=== PATIENT | male | born 1955 | race Caucasian/White ===

== ENCOUNTER 2017-12-16 20:03 | Inpatient (IN) | payer BC, SELFPAY ==
[2017-12-16 20:03] VITALS: BP 125/68; PULSE 96; RESP 24; TEMP 37.3; O2SAT 94; BMI 35.6
--- NOTE | 2017-12-16 20:05 | EKG12_ITS ---
Test Reason : CP Blood Pressure : / mmHG Vent. Rate : 093 BPM Atrial Rate : 093 BPM P-R Int : 154 ms QRS Dur : 098 ms QT Int : 320 ms P-R-T Axes : 028 018 021 degrees QTc Int : 397 ms Normal sinus rhythm Nonspecific ST and T wave abnormality Abnormal ECG Confirmed by CESAR HOLLAND, WES ([id number]), website/blog editor RIAZ BROUSSARD ([id number]) on 12/20/2017 1:59:26 PM Referred By: CD Confirmed By:WES GUERRERO MD
[2017-12-16 21:03] VITALS: RESP 23; O2SAT 96
[2017-12-16 21:05] VITALS: BP 155/74; PULSE 96; RESP 24; O2SAT 97; O2SAT 98
--- NOTE | 2017-12-16 21:05 | RAD_ITS ---
STUDY: X-RAY CHEST REASON FOR EXAM: Male, 62 years old. Nausea and vomiting. Short of breath and chest pain. TECHNIQUE: Single AP portable view of the chest. COMPARISON: None. FINDINGS: The lungs are clear and expanded. There is no demonstrated pleural abnormality. Normal size heart. Normal mediastinum and trae. Normal visualized pulmonary arteries. Normal visualized aortic arch and descending thoracic aorta. Normal visualized thoracic spine. Normal visualized ribs, clavicles, and shoulders. There is no demonstrated abnormality of the visualized soft tissue structures of the upper abdomen. RAD/Chest 1 View (Portable) IMPRESSION: Normal x-ray examination of the chest. Electronically Signed: Luís Ferrari MD at 21:35 EDT , Service support ,
[2017-12-16 21:12] LABS: Anion Gap 5 (5-15); BUN 25 mg/dL (7-18); BUN/Creat Ratio 21.4 RATIO (10-20); Calcium,Total 8.3 mg/dL (8.5-10.1); Chloride 103 mmol/L (98-107); Creatinine, Serum 1.17 mg/dL (0.70-1.30); EST Glomerular Filtration Rate 67 mL/min (>60); Est Glom Filt Rate - Afr Amer 81 mL/min (>60); Estimated Creatinine Clearance 67.93 ml/min; Glucose 98 mg/dL (74-106); Potassium 3.9 mmol/L (3.5-5.1); Sodium Level 132 mmol/L (136-145)
[2017-12-16 21:23] LABS: Absolute Lymphocyte Count 1.74 X10^3/ul (0.83-4.51); Absolute Neutrophil Count 10.3 X10^3/uL (2.0-7.7); Basophil# 0.08 X10^3/uL; Basophil% 0.6 % (0-1); Eosinophil# 0.04 X10^3/uL; Eosinophils% 0.3 % (0-5); Hematocrit 40.3 % (40-54); Hemoglobin 13.9 g/dl (13.0-16.5); Lymphocyte # 1.74 X10^3/ul (4.0); Lymphocyte % 12.1 % (19-41); Mean Corp Hgb Conc 34.5 g/gl (32-36); Mean Corpuscular Hgb 31.3 pg (27.0-32.0); Mean Corpuscular Volume 90.8 fL (80-94); Mean Platelet Vol. 9.3 fl (6.2-12.0); Monocyte# 2.18 X10^3/uL; Monocyte% 15.1 % (0-10); Neutrophil # 10.29 X10^3/uL (2.7-7.7); Neutrophil % 71.4 % (47-70); Platelet Count 252 K/mm3 (150-450); RBC Distribution Width CV 13.1 % (11.6-14.6); Red Blood Count 4.44 M/mm3 (4.6-6.2); White Blood Count 14.4 K/mm3 (4.4-11.0)
[2017-12-16 21:28] LABS: Differential Indicated SCAN CRITERIA MET; POSITIVE COUNT NO; POSITIVE DIFFERENTIAL YES; POSITIVE MORPHOLOGY YES
[2017-12-16 21:47] LABS: Platelet Estimate ADEQUATE (ADEQ)
[2017-12-16 21:48] LABS: Differential Comment SCANNED
[2017-12-16] MEDS: Albuterol 2.5 MG/3 ML VIAL.NEB. INHALATION (22:14)
[2017-12-16 22:16] VITALS: PULSE 11; RESP 20
[2017-12-16] MEDS: Acetaminophen 500 MG Tablet 1000 MG PO (22:19)
[2017-12-17] VITALS (24 sets, daily range): BP systolic 110–159; BP diastolic 57–95; PULSE 76–126; RESP 18–30; TEMP 36.4–39.4; O2SAT 2–97; BMI 35.2
[2017-12-17 00:02] LABS: Bacteria 0 SEEN /hpf (None Seen); Squamous Epithelial Cells - UA 0 SEEN /hpf (0-5)
[2017-12-17 00:03] LABS: Color, Urine Yellow (Yellow); Glucose, Dipstick Normal (Normal); Ketone-Dipstick 15 mg/dl (Negative); Leukocyte Esterase-Dipstick 25 /ul (Negative); Nitrite-Dipstick Negative (Negative); Occult Blood-Urine 250 /ul (Negative); Protein-Dipstick 30 mg/dl (Negative); Urine Clarity Clear (Clear); Urine Urobilinogen Normal (Normal)
[2017-12-17 00:09] LABS: Urine Bilirubin Dipstick 1 mg/dL (Negative)
--- NOTE | 2017-12-17 00:10 | ED.DCSUM_ITS ---
- ER Visit Summary Date of Service: 12/17/17 Chief Complaint: Nausea History of Present Illness: The patient is a 62 M who presents with nausea that began yesterday. Patient states he has been nauseated since yesterday. Patient states this has been constant. Patient admits to some mild diffuse abdominal pain. Patient denies any diarrhea. Patient denies any melena or hematochezia. Patient denies any dysuria or hematuria. Patient does admit to some tightness in his chest and a cough. Patient also admits to a headache. Patient states his temperature at home was up to 102.2. Physical Examination: Vital signs are stable. Patient is afebrile. Patient is in no acute distress. Oral mucosa is pink and moist. Neck is supple. Trachea is midline. There is no JVD or lymphadenopathy. Heart was regular rate and rhythm. Lungs are diminished bilaterally. There is good respiratory effort noted. There is no accessory muscle use or retractions noted. Abdomen is soft. Bowel sounds are normal. There is no tenderness noted. Cranial nerves II through XII are intact. There are no focal motor or sensory deficits noted. The remaining physical exam is within normal limits. Test Results: Chest x-ray does not show any acute cardiopulmonary process. CBC shows a mild leukocytosis of 14.4. Basic metabolic profile is essentially within normal limits. Urinalysis is normal. Troponin is less than 0.02. EKG showed a normal sinus rhythm with a rate of 93. There are nonspecific ST T- wave changes in V1 and V2. There is a right bundle branch block noted. There are no acute changes. Emergency Department Course and Treatment: She was given an albuterol aerosol here. Patient was feeling better on reevaluation. Given the patient's leukocytosis, cough, and fever I feel this may be a bacterial bronchitis. Patient was given a prescription for Zithromax. Patient was also given a prescription for albuterol inhaler. Patient was instructed to follow-up with his primary care physician in 5-7 days. Patient understood and was agreeable with the plan. All questions were answered. Disposition: Discharge home Impression: Acute bronchitis This note was generated with [employer] dictation software. It may contain incorrect words, spelling, and punctuation that were not noted in review of the chart prior to signing ED Disposition - Plan for ED Patient: Disposition: Home or Assisted Living Chief Complaint: Nausea/Vomiting/Diarrhea Diagnosis: Acute bronchitis Instructions: Acute Bronchitis Prescriptions: Albuterol Inhaler [Ventolin Hfa] 1 - 2 puff INHALATION Q4H PRN PRN #1 inhaler PRN Reason: Wheezing Azithromycin [Zithromax] 250 mg PO DAILY #4 tab Referrals: Shante Castro MD [Primary Care Provider] -
[2017-12-17 00:12] LABS: Mucous, Urine 2+ /hpf (<or=2+); Red Blood Cells-Urine 5-10 SEEN /hpf (0-5); White Blood Cells 0-5 SEEN /hpf (0-5)
[2017-12-17] MEDS: Azithromycin 250 MG Tablet 500 MG PO (00:33)
--- NOTE | 2017-12-17 01:22 | ED.RN ---
AFTER AMBULATING PATIENT, PATIENT COMPLAINS OF INCREASED SHORTNESS OF BREATH AND FEELING LIGHT-HEADED.
--- NOTE | 2017-12-17 01:23 | HP.PCM_ITS ---
Problem List (1) Chronic pancreatitis Status: Chronic Qualifiers: Pancreatitis type: unspecified pancreatitis type Qualified Code(s): K86.1 - Other chronic pancreatitis (2) Acute bronchitis Status: Acute Qualifiers: Bronchitis organism: unspecified organism Qualified Code(s): J20.9 - Acute bronchitis, unspecified (3) Crohn's disease of small intestine Status: Chronic Qualifiers: Digestive disease complication type: unspecified complication Qualified Code(s): K50.019 - Crohn's disease of small intestine with unspecified complications (4) Dyslipidemia Status: Chronic History of Present Illness Date of Admission: 12/17/17 Chief Complaint: Dyspnea, cough, congestion, rhinorrhea, arthralgia, myalgia The patient is a 62 y/o M w/ PMHx: Crohn's Disease, Chronic Pancreatitis, GERD, Obesity who presents to the [facility] ED on 12/17/17 with history of onset fevers ( home T 102.2), harsh minimally productive cough, mild dyspnea worse with exertion, nausea without emesis, arthralgias and myalgias x 36-48 hours, not improving. In the ED work-up included T 99.2, HR 96, BP 125/68, RR 34, 94% on RA , CBC w/ WBC 14.4, Hgb 13.9, Plts 252 with L shift, BMP w/ Na 132, BUN/Cr 25/ 1.17, trop < 0.02, UA w/ evidence dehydration, microscopic hematuria, CXR without acute process. In the ED patient administered tylenol, azithromycin, albuterol. Initially patient was to be discharged to home; however, upon attempts to ambulate he became notably short of breath with increased RR 30s. Past Medical History Past Medical History (Chronic Problems): Chronic Problems Chronic pancreatitis (Chronic) Crohn's disease of small intestine (Chronic) Dyslipidemia (Chronic) Allergies No Known Allergies Allergy (Verified 01/10/14 03:29) Home Medications: Ambulatory Orders Medication Instructions Recorded Adalimumab [Humira] 20 mg SQ Q14D 01/10/14 Omeprazole [Prilosec] 40 mg PO DAILY 01/10/14 Cholestyramine (with Sugar) 1 dose PO DAILY 12/16/17 [Cholestyramine Powder] Lipase/Protease/Amylase [Creon Dr 1 capsule PO TID 12/16/17 36,000 Units Capsule] Albuterol Inhaler [Ventolin Hfa] 1 - 2 puff INHALATION Q4H PRN PRN 12/17/17 #1 inhaler Surgical History: - - Bowel resection, appendectomy, cholecystectomy, ventral hernia repair, right fifth toe resection. Psychiatric History: No pertinent psych hx Lives: Spouse/ Significant Other Smoking Status: Never smoker Tobacco Use: Non-smoker Alcohol: None Drugs: None - *Family History Maternal History Items: No pertinent history Paternal History Items: - - Father with a history of lung cancer and concurrent tobacco use. Review of Systems Constitutional: Reports: Anorexia, Chills, Fever, Malaise, Weakness, Fatigue. Denies: Weight Change HEENT: Reports: Head Aches, Post Nasal Drip, Sinus Congestion, Sinus Drainage, Sore Throat Cardiovascular: Denies: Chest Pain, Palpitations Respiratory: Reports: Cough, Shortness of Breath, Shortness of breath at rest, Shortness of breath upon exertion. Denies: Sputum production Gastrointestinal: Reports: Nausea. Denies: Abdominal Pain, Vomiting Genitourinary: Denies: Dysuria Musculoskeletal: Reports: Joint Pain, Muscle pain. Denies: Joint Tenderness Skin: Denies: Rash, Wounds Neurological: Denies: Numbness, Tingling, Focal weakness Psychiatric: Denies: Anxiety, Depression, Homicidal Ideations, Suicidal Ideations Hematologic/ Lymphatic: Denies: Easy Bruising, Easy Bleeding VTE Information - Inpt Only VTE Present on Admission: No VTE Mechan Device Prophylaxis: SCD's VTE Pharm Prophylaxis ordered?: Yes Patient Problems: Active and Suspected Problems Acute bronchitis (Acute) Subjective: Seated upright in the emergency room bed, fatigued, ill-appearing. Objective: Physical Examination: General: awake, alert, oriented x 3 and cooperative, seated upright in the ED bed, covered in blankets, fatigued and ill appearing. Skin: normal color, turgor, no icterus, cyanosis. HEENT: AT/NC, EOMI, PERRLA, dry MM, OP erythema without exudate, congested, no carotid bruits or JVD noted. Lungs: Diminished BS throughout, > bases, harsh coughing with any increased effort attempts, no rales, ronchi or wheezing. Heart: Mildly tachycardic with regular rhythm; no gallop, rub audible. Abdomen: soft, obese, NTTP, ND, normal BS, no HSM. Extremities: no cyanosis, clubbing, or edema. Neurological: patient awake, alert, oriented x 3; cognitive function intact; pupils equally reactive to light and accomodation; cranial nerves II-XII grossly normal, moving all 4 extremities, no focal deficits, strength severely globally decreased secondary to acute presentation. Psychiatric: affect appears fatigued, no acute evidence of depressive or anxiety feelings. - Physical Exam Vital Signs Temp Pulse Resp BP Pulse Ox 99.2 F H 116 H 23 H 138/95 H 95 12/16/17 20:03 12/17/17 00:06 12/17/17 00:06 12/17/17 00:06 12/17/17 00:06 Oxygen Flow Rate (L/min) 2 Oxygen Delivery Method Nasal Cannula Weight: 255 lb 11.779 oz Body Mass Index (BMI) 35.6 Laboratory Tests Past 24 Hrs 12/16/17 12/16/17 12/16/17 20:39 20:39 23:58 WBC 14.4 H RBC 4.44 L Hgb 13.9 Hct 40.3 MCV 90.8 MCH 31.3 MCHC 34.5 RDW 13.1 RDW Differential 43.0 Plt Count 252 MPV 9.3 Immature Gran % (Auto) 0.500 Neut % (Auto) 71.4 H Lymph % (Auto) 12.1 L [place] % (Auto) 15.1 H Eos % (Auto) 0.3 Baso % (Auto) 0.6 Absolute Neuts (auto) 10.3 H Absolute Lymphs (auto) 1.74 Total Counted Not Reportable Differential Comment SCANNED Diff Path Review May foll Platelet Estimate ADEQUATE Sodium 132 L Potassium 3.9 Chloride 103 Carbon Dioxide 24.0 Anion Gap 5 BUN 25 H Creatinine 1.17 Estim Creat Clear Calc 67.93 Est GFR (MDRD) Af Amer 81 Est GFR (MDRD) Non-Af 67 BUN/Creatinine Ratio 21.4 H Glucose 98 Calcium 8.3 L Troponin I < 0.02 Urine Color Yellow Urine Clarity Clear Urine pH 5.0 Ur Specific [place] 1.020 Urine Protein 30 H Urine Glucose (UA) Normal Urine Ketones 15 H Urine Occult Blood 250 H Urine Nitrite Negative Urine Bilirubin 1 H Urine Urobilinogen Normal Ur Leukocyte Esterase 25 H Urine RBC 5-10 SEEN Urine WBC 0-5 SEEN Ur Squamous Epith Cells 0 SEEN Urine Bacteria 0 SEEN Urine Mucus 2+ Assessment/Plan Active and Suspected Problems Acute bronchitis (Acute) The patient is a 62 y/o M w/ PMHx: Crohn's Disease, Chronic Pancreatitis, GERD, Obesity who presents to the [facility] ED on 12/17/17 with history of onset fevers, harsh minimally productive cough, mild dyspnea worse with exertion, nausea without emesis, arthralgias and myalgias x 36-48 hours, not improving. (1) Acute Bronchitis, Possible Influenza Viral Syndrome: CXR w/ chronic changes , CBC on admission w/ 14.4 with L shift. Will admit to MS, maintain on oxygen with wean as tolerated to room air, continue ATC duonebs, PRN albuterol, IV methylprednisolone given severity of presentation, HOB, IS parameters, IV Azithromcyin with pending sputum cultures. Respiratory viral panel and rapid influenza requested, pending. Tamiflu started pending these results given high suspicions. Bld Cx x 2 requested additionally given presentation. Allow clears, ADAT, PRN anti-emetics. Continue IVFs, plan repeat CXR PA and Lateral in AM in case of evolving PNA. (2) Hyponatremia, Hypovolemic: Na 132, BUN elevated also, secondary to #1, dehydration, continue IVFs, repeat level in AM. (3) Crohn's Disease: Patient notes diffuse disease, s/p prior bowel resection x 2, on Humira q 2 weeks. (4) Chronic Pancreatitis: Secondary to #2, maintain on creon, current clears only with ADAT. (5) Obesity: Weight loss and lifestyle changes encouraged. (6) DVT Prophylaxis: SCDs, lovenox. Code Visit OBSV E&M: 44245 Initial observation care L3
[2017-12-17 02:42] LABS: Magnesium 2.1 mg/dL (1.6-2.6)
[2017-12-17] MEDS: Ondansetron 4 MG/2 ML Vial IV ×2 (03:44→22:13)
[2017-12-17] MEDS: 0.9% Normal Saline 1,000 ML 125 ML IV ×3 (03:47→22:32)
[2017-12-17] MEDS: Ipratropium/Albuterol Sulfate 3 ML AMPUL.NEB INHALATION ×4 (03:59→19:52)
[2017-12-17] MEDS: Acetaminophen 325 MG Tablet 650 MG PO (05:01)
[2017-12-17] MEDS: 0.9% NaCl Peripheral Flush Adult/Peds IV ×3 (05:02→13:18)
[2017-12-17] MEDS: Oseltamivir Phosphate 75 MG Capsule PO (05:03)
[2017-12-17 05:22] LABS: Absolute Lymphocyte Count 1.72 X10^3/ul (0.83-4.51); Absolute Neutrophil Count 17.6 X10^3/uL (2.0-7.7); Basophil# 0.05 X10^3/uL; Basophil% 0.2 % (0-1); Hematocrit 37.8 % (40-54); Hemoglobin 12.9 g/dl (13.0-16.5); Lymphocyte # 1.72 X10^3/ul (4.0); Lymphocyte % 7.7 % (19-41); Mean Corp Hgb Conc 34.1 g/gl (32-36); Mean Corpuscular Hgb 31.2 pg (27.0-32.0); Mean Corpuscular Volume 91.5 fL (80-94); Mean Platelet Vol. 9.1 fl (6.2-12.0); Monocyte# 3.02 X10^3/uL; Monocyte% 13.4 % (0-10); Neutrophil # 17.59 X10^3/uL (2.7-7.7); Neutrophil % 78.3 % (47-70); Platelet Count 224 K/mm3 (150-450); RBC Distribution Width CV 13.5 % (11.6-14.6); RBC Distribution Width SD 44.2 fl (35.1-43.9); Red Blood Count 4.13 M/mm3 (4.6-6.2); White Blood Count 22.5 K/mm3 (4.4-11.0)
[2017-12-17 05:23] LABS: Differential Indicated SCAN CRITERIA MET; POSITIVE COUNT NO; POSITIVE DIFFERENTIAL YES; POSITIVE MORPHOLOGY YES
[2017-12-17 05:31] LABS: Anion Gap 9 (5-15); BUN 24 mg/dL (7-18); BUN/Creat Ratio 20.5 RATIO (10-20); Calcium,Total 7.8 mg/dL (8.5-10.1); Chloride 103 mmol/L (98-107); Creatinine, Serum 1.17 mg/dL (0.70-1.30); EST Glomerular Filtration Rate 67 mL/min (>60); Est Glom Filt Rate - Afr Amer 81 mL/min (>60); Estimated Creatinine Clearance 67.93 ml/min; Glucose 105 mg/dL (74-106); Potassium 3.8 mmol/L (3.5-5.1); Sodium Level 135 mmol/L (136-145)
[2017-12-17 05:34] LABS: Lactic Acid 1.3 mmol/L (0.4-2.0)
--- NOTE | 2017-12-17 09:11 | RAD_ITS ---
STUDY: X-RAY CHEST REASON FOR EXAM: Male, 62 years old. Acute bronchitis, shortness of breath. TECHNIQUE: PA and lateral views of the chest. COMPARISON: None. FINDINGS: Prominent interstitial lung markings are present symmetrically and predominantly within the lung bases. There is no demonstrated pleural abnormality. Normal size heart. Normal mediastinum and trae. Normal visualized pulmonary arteries. There is atherosclerotic calcification of the aortic arch with tortuosity. Normal visualized thoracic spine. Normal visualized ribs, clavicles, and shoulders. There is no demonstrated abnormality of the visualized soft tissue structures of the upper abdomen. RAD/Chest PA and Lateral IMPRESSION: Prominent interstitial markings with no distinct focal airspace disease concerning for diffuse peribronchial inflammation in the appropriate clinical setting. Electronically Signed: Robert Scott DO at 9:38 EDT , Service support ,
--- NOTE | 2017-12-17 09:18 | PN_ITS ---
Patient Problems: Active and Suspected Problems Acute bronchitis (Acute) Subjective: Patient is a 62-year-old gentleman with past medical history cigar for Crohn's disease presented to the emergency department with progressive generalized weakness associated with cough dyspnea on exertion joint and muscle aches as well as fever. A suspicion of acute bronchitis possibly infectious in etiology was made admitted to regular nursing floor for further management Objective: GENERAL: cooperative HEENT: Clear conjunctiva, NECK; supple, normal thyroid, CHEST: Diminished to auscultation bilaterally, HEART: Regular S1 S2, no audible murmurs ABDOMEN: soft, non-tender, normoactive bowel sounds, RECTAL: deferred EXTREMITIES: No edema, no clubbing, no cyanosis. OBJECTS CONSERVATOR: Awake,, no lateralizing signs. SKIN: No rash Vitals/I&O's: Vital Signs Temp Pulse Resp BP Pulse Ox 98.9 F 101 H 28 H 149/83 H 94 12/17/17 08:50 12/17/17 08:50 12/17/17 08:50 12/17/17 08:50 12/17/17 08:50 Oxygen Flow Rate (L/min) 2 Oxygen Delivery Method Nasal Cannula Weight: 114.4 kg Body Mass Index (BMI) 35.2 Intake and Output for Last 24 Hours 12/15/17 12/16/17 12/17/17 23:59 23:59 23:59 Intake Total 300 / 300 Output Total 125 / 125 Balance 175 / 175 Microbiology Past 72 Hours 12/17/17 03:55 Mucosa - Nasopharyngeal Influenza Types A,B Direct FA (CESILIA) - Final Laboratory Results 12/17/17 04:45: WBC 22.5 H, RBC 4.13 L, Hgb 12.9 L, Hct 37.8 L, MCV 91.5, MCH 31.2, MCHC 34.1, RDW 13.5, RDW Differential 44.2 H, Plt Count 224, MPV 9.1, Immature Gran % (Auto) 0.400, Neut % (Auto) 78.3 H, Lymph % (Auto) 7.7 L, [place] % (Auto) 13.4 H, Eos % (Auto) 0.0, Baso % (Auto) 0.2, Absolute Neuts (auto) 17.6 H, Absolute Lymphs (auto) 1.72, Total Counted Not Reportable, Diff Path Review January12/17/17 04:45: Sodium 135 L, Potassium 3.8, Chloride 103, Carbon Dioxide 23.0, Anion Gap 9, BUN 24 H, Creatinine 1.17, Estim Creat Clear Calc 67.93, Est GFR ( MDRD) Af Amer 81, Est GFR (MDRD) Non-Af 67, BUN/Creatinine Ratio 20.5 H, Glucose 105, Calcium 7.8 L 12/17/17 04:45: Lactic Acid 1.3 Current Medications Acetaminophen (Tylenol) 650 mg PO Q4H PRN PRN PRN Reason: fever, pain Last Admin: 12/17/17 05:01 Dose: 650 mg Hydrocodone Bitart/Acetaminophen ([place] 5mg-325mg) 1 - 2 tablet PO Q6H PRN PRN PRN Reason: Moderate-severe pain Al Hydroxide/Mg Hydroxide (Mylanta Ii) 30 ml PO Q6H PRN PRN PRN Reason: Gastric burning Albuterol Sulfate (Ventolin Aerosols) 2.5 mg INHALATION Q2H PRN PRN PRN Reason: SHORTNESS OF BREATH Albuterol/Ipratropium (Duoneb) 3 ml INHALATION Q4H.RT [facility] Last Admin: 12/17/17 07:08 Dose: 3 ml Cholestyramine Resin (Questran 4gm Packet) 4 gm PO DAILY@1400 [facility] Enoxaparin Sodium (Lovenox) 40 mg SC DAILY@1000 [facility] Famotidine (Pepcid) 20 mg PO BID [facility] Guaifenesin (Mucinex) 1,200 mg PO BID [facility] Hydralazine HCl (Apresoline Iv) 10 mg IV Q4H PRN PRN PRN Reason: SBP > 160 Sodium Chloride () 1,000 mls @ 125 mls/hr IV .Q8H [facility] Last Admin: 12/17/17 03:47 Dose: 125 mls/hr Azithromycin 500 mg/ Dextrose 255 mls @ 250 mls/hr IV Q24 [facility] Stop: 12/19/17 11:02 Magnesium Hydroxide (Milk Of Magnesia) 30 ml PO DAILY PRN PRN PRN Reason: Constipation Methylprednisolone (Solu-Medrol) 40 mg IV Q8 [facility] Last Admin: 12/17/17 05:07 Dose: 40 mg Nutritional Formula (Lactose Free) (Ensure Clear) 120 ml PO 4X/DAY [facility] Ondansetron HCl (Zofran) 4 mg IV Q8H PRN PRN PRN Reason: NAUSEA Last Admin: 12/17/17 03:44 Dose: 4 mg Oseltamivir Phosphate (Tamiflu) 75 mg PO BID [facility] Stop: 12/21/17 22:01 Last Admin: 12/17/17 05:03 Dose: 75 mg Pancrelipase (Creon Dr 12,000 Units Capsule) 3 each PO TIDCM [facility] Promethazine HCl (Phenergan) 12.5 mg IV Q6H PRN PRN PRN Reason: NAUSEA/VOMITING Sodium Chloride () 5 - 30 ml IV UD PRN PRN Reason: SALINE FLUSH Last Admin: 12/17/17 05:07 Dose: 10 ml Temazepam (Restoril) 15 mg PO QHS PRN PRN PRN Reason: insomnia Medical Necessity - Tobacco Use Smoking Status: Never smoker Tobacco Use: Non-smoker Assessment/Plan Active and Suspected Problems Acute bronchitis (Acute) Patient is a 62-year-old gentleman with past medical history cigar for Crohn's disease presented to the emergency department with progressive generalized weakness associated with cough dyspnea on exertion joint and muscle aches as well as fever. A suspicion of acute bronchitis possibly infectious in etiology was made admitted to regular nursing floor for further management 1. Acute infectious bronchitis possibly viral versus bacteria. Admitted to regular nursing floor cultures were sent in addition to viral respiratory panel results pending at the time of the dictation. Patient was placed on Rocephin and azithromycin in addition to bronchodilator treatment and supplemental oxygen 2. Hyponatremia secondary to hypovolemic hyponatremia on IV fluids with monitoring of electrolyte 3. Crohn's disease currently stable patient is on Humira as outpatient 4. Chronic pancreatitis currently stable on pancreatic supplements 5. Obesity with BMI of 35.2 weight loss advised 6. DVT prophylaxis SC Lovenox Code Visit Inpatient E&M: 80906 Subs Hosp L3
[2017-12-17] MEDS: Famotidine 20 MG Tablet PO ×2 (09:49→22:14)
[2017-12-17] MEDS: Cholestyramine/Sucrose 4 GM/PACKET PO (09:49)
[2017-12-17] MEDS: Enoxaparin 40 MG/0.4 ML Syringe SC (09:49)
[2017-12-17] MEDS: guaiFENesin 1,200 MG Tablet 1200 MG PO ×2 (09:50→22:14)
--- NOTE | 2017-12-17 11:35 | CT_ITS ---
STUDY: CT CHEST WITHOUT CONTRAST REASON FOR EXAM: Male, 62 years old. Dyspnea and cough. RADIATION DOSAGE (If Supplied By Facility): CTDIvol = ( 19.05 ) mGy, DLP = ( 623.65 ) mGycm TECHNIQUE: Transaxial imaging was performed without the administration of intravenous contrast material. Individualized dose optimization techniques were used for this CT. COMPARISON: Chest x-ray of the same date.. FINDINGS: Mild hyperexpansion of lungs. There is a hemispheric area of consolidation in the infiltrate or mass. Right lower lobe measuring 5.5 cm greatest dimension. There is a small area of mild pulmonary density in the apical segment of the right upper lobe against the major fissure could be infiltrate or scarring. Very mild infiltrate, subsegmental atelectasis, or scarring seen in the medial left lower lobe. No effusions. Normal heart and pericardium. There are calcifications of the coronary arteries. Normal mediastinum. Normal hilar regions. Normal unenhanced pulmonary arteries. Normal aorta arch and descending thoracic aorta. There are multi-level degenerative changes of the thoracic spine. There is no demonstrated abnormality of the visualized upper abdomen. CT/Chest without Contrast IMPRESSION: Mild to moderate COPD. Focal hemispheric consolidation or mass of the right lower lobe. Neoplasm is not excluded. Consider further evaluation with PET scan. Other smaller areas of atelectasis or infiltrate versus scarring in the right upper lobe and left lower lobe. Electronically Signed: Luís Ferrari MD at 16:55 EDT , Service support ,
[2017-12-17] MEDS: LIPASE/PROTEASE/AMYLASE 1 EACH CAPSULE.DR 2 CAP PO ×2 (11:53→16:21)
[2017-12-17] MEDS: LIPASE/PROTEASE/AMYLASE 1 EACH CAPSULE.DR PO ×2 (11:53→16:21)
[2017-12-17] MEDS: HYDROcodone Bitartrate/Apap 5/325 Tablet PO (13:30)
[2017-12-17] MEDS: proMETHazine 25 MG/ML Syringe 12.5 MG IV (13:30)
[2017-12-18] VITALS (18 sets, daily range): BP systolic 126–140; BP diastolic 69–91; PULSE 71–109; RESP 16–22; TEMP 36.5–36.9; O2SAT 94–98
[2017-12-18 06:40] LABS: Hematocrit 38.6 % (40-54); Hemoglobin 13.2 g/dl (13.0-16.5); Mean Corp Hgb Conc 34.2 g/gl (32-36); Mean Corpuscular Hgb 31.5 pg (27.0-32.0); Mean Corpuscular Volume 92.1 fL (80-94); Mean Platelet Vol. 9.6 fl (6.2-12.0); Platelet Count 236 K/mm3 (150-450); RBC Distribution Width CV 13.5 % (11.6-14.6); RBC Distribution Width SD 44.7 fl (35.1-43.9); Red Blood Count 4.19 M/mm3 (4.6-6.2)
[2017-12-18 06:42] LABS: Scan Indicated on CBC? Y/N YES- FLAGS NOTED; White Blood Count 33.3 K/mm3 (4.4-11.0)
[2017-12-18] MEDS: Ipratropium/Albuterol Sulfate 3 ML AMPUL.NEB INHALATION ×4 (06:44→19:11)
[2017-12-18 06:55] LABS: Anion Gap 8 (5-15); BUN 27 mg/dL (7-18); BUN/Creat Ratio 26.7 RATIO (10-20); Calcium,Total 8.3 mg/dL (8.5-10.1); Chloride 106 mmol/L (98-107); Creatinine, Serum 1.01 mg/dL (0.70-1.30); EST Glomerular Filtration Rate 79 mL/min (>60); Est Glom Filt Rate - Afr Amer 96 mL/min (>60); Glucose 136 mg/dL (74-106); Magnesium 2.5 mg/dL (1.6-2.6); Potassium 4.3 mmol/L (3.5-5.1); Sodium Level 137 mmol/L (136-145)
[2017-12-18 07:08] LABS: Differential Comment SCAN
[2017-12-18] MEDS: 0.9% Normal Saline 1,000 ML 125 ML IV ×2 (07:13→21:00)
[2017-12-18] MEDS: LIPASE/PROTEASE/AMYLASE 1 EACH CAPSULE.DR 2 CAP PO ×3 (07:13→16:52)
[2017-12-18] MEDS: LIPASE/PROTEASE/AMYLASE 1 EACH CAPSULE.DR PO ×3 (07:14→16:53)
--- NOTE | 2017-12-18 08:37 | PCM.PN.HOSP ---
Patient Problems: Active and Suspected Problems Acute bronchitis (Acute) Subjective: Patient is a 62-year-old gentleman with past medical history of recurrent for Crohn's disease presented to the emergency department with progressive generalized weakness associated with cough dyspnea on exertion joint and muscle aches as well as fever. A suspicion of acute bronchitis possibly infectious in etiology was made admitted to regular nursing floor for further management. Subsequent CT of the chest obtained demonstrated right lower lobe focal consolidation 12/18/2017: Viral panel came back positive for Human [place] patient has worsening leukocytosis attributed to his underlying infection as well as concomitant use of Solu-Medrol which has been decreased. Patient also did of abdominal pain which she did attribute to possible flareup of his Crohn's is currently on steroids Objective: GENERAL: cooperative HEENT: Clear conjunctiva, NECK; supple, normal thyroid, CHEST: Diminished to auscultation bilaterally, HEART: Regular S1 S2, no audible murmurs ABDOMEN: soft, non-tender, normoactive bowel sounds, RECTAL: deferred EXTREMITIES: No edema, no clubbing, no cyanosis. 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 SKIN: No rash Vitals/I&O's: Vital Signs Temp Pulse Resp BP Pulse Ox 98 F 95 16 140/81 H 96 12/18/17 03:53 12/18/17 07:53 12/18/17 06:44 12/18/17 03:53 12/18/17 06:52 Oxygen Flow Rate (L/min) 2 Oxygen Delivery Method Room Air Weight: 114.4 kg Body Mass Index (BMI) 35.2 Intake and Output for Last 24 Hours 12/16/17 12/17/17 12/18/17 23:59 23:59 23:59 Intake Total 2324 / 2324 2107 / 2107 Output Total 1025 / 1025 300 / 300 Balance 1299 / 1299 1807 / 1807 Microbiology Past 72 Hours 12/17/17 09:00 Sputum, Expectorated/Coughed Gram Stain - Final 12/17/17 03:55 Mucosa - Nasopharyngeal Respiratory Panel (PCR) - Final Human [place] 12/17/17 03:55 Mucosa - Nasopharyngeal Influenza Types A,B Direct FA (CESILIA) - Final Laboratory Results 12/18/17 05:12: WBC 33.3 H*, RBC 4.19 L, Hgb 13.2, Hct 38.6 L, MCV 92.1, MCH 31.5, MCHC 34.2, RDW 13.5, RDW Differential 44.7 H, Plt Count 236, MPV 9.6, Differential Comment SCAN, Diff Path Review January12/18/17 05:12: Sodium 137, Potassium 4.3, Chloride 106, Carbon Dioxide 23.0, Anion Gap 8, BUN 27 H, Creatinine 1.01, Estim Creat Clear Calc 78.70, Est GFR (MDRD) Af Amer 96, Est GFR (MDRD) Non-Af 79, BUN/Creatinine Ratio 26.7 H, Glucose 136 H, Calcium 8.3 L, Magnesium 2.5 Current Medications Acetaminophen (Tylenol) 650 mg PO Q4H PRN PRN PRN Reason: fever, pain Last Admin: 12/17/17 05:01 Dose: 650 mg Hydrocodone Bitart/Acetaminophen (Friendly 5mg-325mg) 1 - 2 tablet PO Q6H PRN PRN PRN Reason: Moderate-severe pain Last Admin: 12/17/17 13:30 Dose: 2 tablet Al Hydroxide/Mg Hydroxide (Mylanta Ii) 30 ml PO Q6H PRN PRN PRN Reason: Gastric burning Albuterol Sulfate (Ventolin Aerosols) 2.5 mg INHALATION Q2H PRN PRN PRN Reason: SHORTNESS OF BREATH Albuterol/Ipratropium (Duoneb) 3 ml INHALATION Q4H.RT [facility] Last Admin: 12/18/17 06:44 Dose: 3 ml Cholestyramine Resin (Questran 4gm Packet) 4 gm PO DAILY@1400 [facility] Last Admin: 12/17/17 13:05 Dose: Not Given Enoxaparin Sodium (Lovenox) 40 mg SC DAILY@1000 [facility] Last Admin: 12/17/17 09:49 Dose: 40 mg Famotidine (Pepcid) 20 mg PO BID [facility] Last Admin: 12/17/17 22:14 Dose: 20 mg Guaifenesin (Mucinex) 1,200 mg PO BID [facility] Last Admin: 12/17/17 22:14 Dose: 1,200 mg Hydralazine HCl (Apresoline Iv) 10 mg IV Q4H PRN PRN PRN Reason: SBP > 160 Sodium Chloride () 1,000 mls @ 125 mls/hr IV .Q8H [facility] Last Admin: 12/18/17 07:13 Dose: 125 mls/hr Azithromycin 500 mg/ Dextrose 255 mls @ 250 mls/hr IV Q24 [facility] Stop: 12/19/17 11:02 Last Admin: 12/17/17 09:50 Dose: 250 mls/hr Ceftriaxone Sodium 1 gm/ N/A 50 mls @ 100 mls/hr IV Q24 [facility] Last Admin: 12/17/17 13:31 Dose: 100 mls/hr Magnesium Hydroxide (Milk Of Magnesia) 30 ml PO DAILY PRN PRN PRN Reason: Constipation Methylprednisolone (Solu-Medrol) 40 mg IV Q8 [facility] Last Admin: 12/18/17 05:35 Dose: 40 mg Nutritional Formula (Lactose Free) (Ensure Enlive) 120 ml PO 4X/DAY [facility] Last Admin: 12/17/17 22:13 Dose: 120 ml Ondansetron HCl (Zofran) 4 mg IV Q8H PRN PRN PRN Reason: NAUSEA Last Admin: 12/17/17 22:13 Dose: 4 mg Pancrelipase (Creon Dr 12,000 Units Capsule) 3 each PO TIDCM [facility] Promethazine HCl (Phenergan) 12.5 mg IV Q6H PRN PRN PRN Reason: NAUSEA/VOMITING Last Admin: 12/17/17 13:30 Dose: 12.5 mg Sodium Chloride () 5 - 30 ml IV UD PRN PRN Reason: SALINE FLUSH Last Admin: 12/17/17 13:18 Dose: 10 ml Temazepam (Restoril) 15 mg PO QHS PRN PRN PRN Reason: insomnia Medical Necessity - Tobacco Use Smoking Status: Never smoker Tobacco Use: Non-smoker Assessment/Plan Active and Suspected Problems Acute bronchitis (Acute) Patient is a 62-year-old gentleman with past medical history of recurrent for Crohn's disease presented to the emergency department with progressive generalized weakness associated with cough dyspnea on exertion joint and muscle aches as well as fever. A suspicion of acute bronchitis possibly infectious in etiology was made admitted to regular nursing floor for further management. Subsequent CT of the chest obtained demonstrated right lower lobe focal consolidation 1. Right lower lobe pneumonia. Admitted to regular nursing floor cultures were sent in addition to viral respiratory panel results pending at the time of the dictation. Patient was placed on Rocephin and azithromycin in addition to bronchodilator treatment and supplemental oxygen. CT of the chest without contrast was ordered for further evaluation demonstrated Mild to moderate COPD.Focal hemispheric consolidation or mass of the right lower lobe. Neoplasm not excluded. Consult was therefore placed a pulmonary medicine as a result of the above finding 2. Hyponatremia secondary to hypovolemic hyponatremia on IV fluids with monitoring of electrolyte. Resolved 3. Crohn's disease currently stable patient is on Humira as outpatient patient did complain of abdominal pain on steroids 4. Chronic pancreatitis currently stable on pancreatic supplements 5. Obesity with BMI of 35.2 weight loss advised 6. DVT prophylaxis SC Lovenox Clinical Impression(s) from Imaging Studies Chest X-Ray 12/16/17 21:05 IMPRESSION: Normal x-ray examination of the chest. Electronically Signed: Luís Ferrari MD at 21:35 EDT , Service support , Chest X-Ray 12/17/17 09:11 IMPRESSION: Prominent interstitial markings with no distinct focal airspace disease concerning for diffuse peribronchial inflammation in the appropriate clinical setting. Electronically Signed: Robert Scott DO at 9:38 EDT , Service support , Chest CT 12/17/17 11:35 IMPRESSION: Mild to moderate COPD. Focal hemispheric consolidation or mass of the right lower lobe. Neoplasm is not excluded. Consider further evaluation with PET scan. Other smaller areas of atelectasis or infiltrate versus scarring in the right upper lobe and left lower lobe. Electronically Signed: Luís Ferrari MD at 16:55 EDT , Service support , Code Visit Inpatient E&M: 50157 Subs Hosp L3
--- NOTE | 2017-12-18 08:49 | PCM.CONS.GEN ---
Reason for Consult Date of Consultation: 12/18/17 Reason for Consultation: Abnormal chest imaging History of Present Illness: The patient is a 62-year-old male, with a history as outlined below, who presented to the emergency department on December 17 with complaints of abdominal pain, nausea, cough and shortness of breath. The patient is a lifelong non-smoker without any significant secondhand smoke exposure. He denies a history of COPD or asthma. He does endorse a history of Crohn's disease, for which he is prescribed Humira on an outpatient basis. On presentation to the emergency department, the patient was noted to be febrile but hemodynamically stable. He was maintaining appropriate oxygen saturations on room air. Initial laboratory evaluation revealed an elevated white blood cell count to 14,000. Chemistry profile was largely unremarkable. Serum lactate was within normal limits. Troponin was negative. Initial plain film chest x-ray revealed prominent interstitial markings without focal airspace disease. A follow-up chest CT revealed a posterior located right lower lobe consolidation/density along with a right upper lobe airspace opacity. The right lower lobe consolidation did appear to have air bronchograms. There was initial concern from a radiographic perspective for potential neoplasm versus infection. The patient was admitted to the medical surgical floor. He has had a T-max over the course of his admission which peaked at 103?F. The patient's white count has also steadily increased over the course of his hospitalization and is currently 33,000 this morning. The patient has been maintained on ceftriaxone, azithromycin and IV steroids. The patient's respiratory viral panel was positive for human [place] pneumo virus. Past Medical History Past Medical History (Chronic Problems): Chronic Problems Chronic pancreatitis (Chronic) Crohn's disease of small intestine (Chronic) Dyslipidemia (Chronic) Allergies No Known Allergies Allergy (Verified 01/10/14 03:29) Home Medications: Ambulatory Orders Medication Instructions Recorded Adalimumab [Humira] 20 mg SQ Q14D 01/10/14 Omeprazole [Prilosec] 40 mg PO DAILY 01/10/14 Cholestyramine (with Sugar) 1 dose PO DAILY 12/16/17 [Cholestyramine Powder] Lipase/Protease/Amylase [Creon Dr 1 capsule PO TID 12/16/17 36,000 Units Capsule] Albuterol Inhaler [Ventolin Hfa] 1 - 2 puff INHALATION Q4H PRN PRN 12/17/17 #1 inhaler Surgical History: - - Bowel resection, appendectomy, cholecystectomy, ventral hernia repair, right fifth toe resection. Psychiatric History: No pertinent psych hx Lives: Spouse/ Significant Other Smoking Status: Never smoker Tobacco Use: Non-smoker Alcohol: None Drugs: None - *Family History Maternal History Items: No pertinent history Paternal History Items: - - Father with a history of lung cancer and concurrent tobacco use. Review of Systems Constitutional: Reports: Chills, Fever, Malaise, Fatigue Eyes: Denies: Blurred vision, Double vision HEENT: Denies: Head Aches, Sinus Congestion, Sinus Drainage Cardiovascular: Denies: Chest Pain, Palpitations Respiratory: Reports: Cough, Shortness of Breath, Sputum production Gastrointestinal: Reports: Abdominal Pain. Denies: Nausea, Vomiting Genitourinary: Denies: Dysuria Musculoskeletal: Denies: Joint Pain, Joint Tenderness Skin: Denies: Rash, Wounds Neurological: Denies: Numbness, Tingling, Focal weakness Psychiatric: Denies: Anxiety, Depression, Homicidal Ideations, Suicidal Ideations Hematologic/ Lymphatic: Denies: Easy Bruising, Easy Bleeding Patient Problems: Active and Suspected Problems Acute bronchitis (Acute) Objective: The patient's most recent lab work, culture data and imaging studies have all been personally reviewed. Respiratory viral panel was positive for human [place] pneumo virus. Blood cultures are currently pending. Sputum Gram stain revealed 4+ gram-positive cocci. - Physical Exam General: Alert, Oriented x3, Cooperative, No apparent distress HEENT: Atraumatic, PERRLA, Normocephalic Oral: No Gingival or Mucosal Lesions/ Ulcerations Neck: Supple, No Nodes, Trachea Midline Lungs: No rhonchi, No wheeze, No rales, Diminished Cardiovascular: Regular rate, Regular Rhythm, Normal S1, Normal S2, No murmurs Abdomen: Bowel Sounds Present, Soft, Non Tender, Obese Extremities: No clubbing, No cyanosis, No edema Skin: No breakdown Musculoskeletal: No Tenderness to Palpation of Joints or Extremities, No Muscle Wasting Lymphatic: No Cervical, Supraclavicular, or Inguinal Adenopathy Neurological: Neuro grossly intact Psych/Mental Status: Alert and oriented to time, place, person, mood and affect Vital Signs Temp Pulse Resp BP Pulse Ox 98 F 95 16 140/81 H 96 12/18/17 03:53 12/18/17 07:53 12/18/17 06:44 12/18/17 03:53 12/18/17 06:52 Oxygen Flow Rate (L/min) 2 Oxygen Delivery Method Room Air Weight: 252 lb 3.341 oz Body Mass Index (BMI) 35.2 Intake and Output for Last 24 Hours 12/16/17 12/17/17 12/18/17 23:59 23:59 23:59 Intake Total 2324 / 2324 2107 / 2107 Output Total 1025 / 1025 300 / 300 Balance 1299 / 1299 1807 / 1807 Microbiology Past 72 Hours 12/17/17 09:00 Gram Stain - Final Sputum, Expectorated/Coughed 12/17/17 03:55 Respiratory Panel (PCR) - Final Mucosa - Nasopharyngeal Human [place] 12/17/17 03:55 Influenza Types A,B Direct FA (CESILIA) - Final Mucosa - Nasopharyngeal Laboratory Tests Past 24 Hrs 12/18/17 12/18/17 05:12 05:12 WBC 33.3 H* RBC 4.19 L Hgb 13.2 Hct 38.6 L MCV 92.1 MCH 31.5 MCHC 34.2 RDW 13.5 RDW Differential 44.7 H Plt Count 236 MPV 9.6 Differential Comment SCAN Diff Path Review May foll Sodium 137 Potassium 4.3 Chloride 106 Carbon Dioxide 23.0 Anion Gap 8 BUN 27 H Creatinine 1.01 Estim Creat Clear Calc 78.70 Est GFR (MDRD) Af Amer 96 Est GFR (MDRD) Non-Af 79 BUN/Creatinine Ratio 26.7 H Glucose 136 H Calcium 8.3 L Magnesium 2.5 Clinical Impression(s) from Imaging Studies Chest X-Ray 12/16/17 21:05 IMPRESSION: Normal x-ray examination of the chest. Electronically Signed: Luís Ferrari MD at 21:35 EDT , Service support , Chest X-Ray 12/17/17 09:11 IMPRESSION: Prominent interstitial markings with no distinct focal airspace disease concerning for diffuse peribronchial inflammation in the appropriate clinical setting. Electronically Signed: Robert Scott DO at 9:38 EDT , Service support , Chest CT 12/17/17 11:35 IMPRESSION: Mild to moderate COPD. Focal hemispheric consolidation or mass of the right lower lobe. Neoplasm is not excluded. Consider further evaluation with PET scan. Other smaller areas of atelectasis or infiltrate versus scarring in the right upper lobe and left lower lobe. Electronically Signed: Luís Ferrari MD at 16:55 EDT , Service support , Assessment/Plan Active and Suspected Problems Acute bronchitis (Acute) RECOMMENDATIONS: 1. Broaden antibiotics to include coverage for MRSA. Await finalized sputum culture. 2. Check MRSA screen 3. Favor discontinuation of IV steroids 4. Encourage incentive spirometer use and mobilize patient as tolerated 5. Recommend repeat CT chest in 6-8 weeks following discharge from the hospital. IMPRESSIONS: 1. Shortness of breath secondary to community-acquired pneumonia The patient was initially admitted and placed on ceftriaxone and azithromycin. However, the patient's white blood cell count is risen to 33,000 on these antibiotics. His sputum culture has 4+ gram-positive cocci growing. Given the patient's Humira use, I recommended that his antibiotics be broadened to include vancomycin and cefepime, pending finalized culture results. Will check MRSA screen. Given that the patient is not complaining of current abdominal pain and has no history of COPD or asthma, would recommend discontinuation of steroids. 2. Abnormal chest imaging The patient's CT chest did reveal a right upper lobe infiltrate along with a nodular density/infiltrate in the right lower lobe. In light of the patient's current clinical context, would be most concerning for underlying pulmonary infectious process. Therefore, antibiotics have been broadened as noted above. Nevertheless, would recommended the patient had a repeat CT chest in 6-8 weeks following successful completion of his underlying pneumonia to document clearing or resolution of the nodular density. If unresolved or enlarging, would recommend CT-guided biopsy at that time. 3. Personal history of Crohn's disease on Humira Baseline medications currently on hold. 4. Obesity/GERD/chronic pancreatitis Complicates care, management, recovery and prognosis. Continue home medications as indicated. This note was generated with [employer] software. It may contain incorrect words, spelling, and punctuation that were not noted in checking the note before signing. Code Visit Inpatient E&M: 71399 Init Hosp L3
--- NOTE | 2017-12-18 08:58 | CON.PCM_ITS ---
Reason for Consult Date of Consultation: 12/18/17 Reason for Consultation: Abnormal chest imaging History of Present Illness: The patient is a 62-year-old male, with a history as outlined below, who presented to the emergency department on December 17 with complaints of abdominal pain, nausea, cough and shortness of breath. The patient is a lifelong non- smoker without any significant secondhand smoke exposure. He denies a history of COPD or asthma. He does endorse a history of Crohn's disease, for which he is prescribed Humira on an outpatient basis. On presentation to the emergency department, the patient was noted to be febrile but hemodynamically stable. He was maintaining appropriate oxygen saturations on room air. Initial laboratory evaluation revealed an elevated white blood cell count to 14,000. Chemistry profile was largely unremarkable. Serum lactate was within normal limits. Troponin was negative. Initial plain film chest x-ray revealed prominent interstitial markings without focal airspace disease. A follow-up chest CT revealed a posterior located right lower lobe consolidation/density along with a right upper lobe airspace opacity. The right lower lobe consolidation did appear to have air bronchograms. There was initial concern from a radiographic perspective for potential neoplasm versus infection. The patient was admitted to the medical surgical floor. He has had a T-max over the course of his admission which peaked at 103?F. The patient's white count has also steadily increased over the course of his hospitalization and is currently 33,000 this morning. The patient has been maintained on ceftriaxone, azithromycin and IV steroids. The patient's respiratory viral panel was positive for human Hutchins pneumo virus. Past Medical History Past Medical History (Chronic Problems): Chronic Problems Chronic pancreatitis (Chronic) Crohn's disease of small intestine (Chronic) Dyslipidemia (Chronic) Allergies No Known Allergies Allergy (Verified 01/10/14 03:29) Home Medications: Ambulatory Orders Medication Instructions Recorded Adalimumab [Humira] 20 mg SQ Q14D 01/10/14 Omeprazole [Prilosec] 40 mg PO DAILY 01/10/14 Cholestyramine (with Sugar) 1 dose PO DAILY 12/16/17 [Cholestyramine Powder] Lipase/Protease/Amylase [Creon Dr 1 capsule PO TID 12/16/17 36,000 Units Capsule] Albuterol Inhaler [Ventolin Hfa] 1 - 2 puff INHALATION Q4H PRN PRN 12/17/17 #1 inhaler Surgical History: - - Bowel resection, appendectomy, cholecystectomy, ventral hernia repair, right fifth toe resection. Psychiatric History: No pertinent psych hx Lives: Spouse/ Significant Other Smoking Status: Never smoker Tobacco Use: Non-smoker Alcohol: None Drugs: None - *Family History Maternal History Items: No pertinent history Paternal History Items: - - Father with a history of lung cancer and concurrent tobacco use. Review of Systems Constitutional: Reports: Chills, Fever, Malaise, Fatigue Eyes: Denies: Blurred vision, Double vision HEENT: Denies: Head Aches, Sinus Congestion, Sinus Drainage Cardiovascular: Denies: Chest Pain, Palpitations Respiratory: Reports: Cough, Shortness of Breath, Sputum production Gastrointestinal: Reports: Abdominal Pain. Denies: Nausea, Vomiting Genitourinary: Denies: Dysuria Musculoskeletal: Denies: Joint Pain, Joint Tenderness Skin: Denies: Rash, Wounds Neurological: Denies: Numbness, Tingling, Focal weakness Psychiatric: Denies: Anxiety, Depression, Homicidal Ideations, Suicidal Ideations Hematologic/ Lymphatic: Denies: Easy Bruising, Easy Bleeding Patient Problems: Active and Suspected Problems Acute bronchitis (Acute) Objective: The patient's most recent lab work, culture data and imaging studies have all been personally reviewed. Respiratory viral panel was positive for human Hutchins pneumo virus. Blood cultures are currently pending. Sputum Gram stain revealed 4+ gram-positive cocci. - Physical Exam General: Alert, Oriented x3, Cooperative, No apparent distress HEENT: Atraumatic, PERRLA, Normocephalic Oral: No Gingival or Mucosal Lesions/ Ulcerations Neck: Supple, No Nodes, Trachea Midline Lungs: No rhonchi, No wheeze, No rales, Diminished Cardiovascular: Regular rate, Regular Rhythm, Normal S1, Normal S2, No murmurs Abdomen: Bowel Sounds Present, Soft, Non Tender, Obese Extremities: No clubbing, No cyanosis, No edema Skin: No breakdown Musculoskeletal: No Tenderness to Palpation of Joints or Extremities, No Muscle Wasting Lymphatic: No Cervical, Supraclavicular, or Inguinal Adenopathy Neurological: Neuro grossly intact Psych/Mental Status: Alert and oriented to time, place, person, mood and affect Vital Signs Temp Pulse Resp BP Pulse Ox 98 F 95 16 140/81 H 96 12/18/17 03:53 12/18/17 07:53 12/18/17 06:44 12/18/17 03:53 12/18/17 06:52 Oxygen Flow Rate (L/min) 2 Oxygen Delivery Method Room Air Weight: 252 lb 3.341 oz Body Mass Index (BMI) 35.2 Intake and Output for Last 24 Hours 12/16/17 12/17/17 12/18/17 23:59 23:59 23:59 Intake Total 2324 / 2324 2107 / 2107 Output Total 1025 / 1025 300 / 300 Balance 1299 / 1299 1807 / 1807 Microbiology Past 72 Hours 12/17/17 09:00 Gram Stain - Final Sputum, Expectorated/Coughed 12/17/17 03:55 Respiratory Panel (PCR) - Final Mucosa - Nasopharyngeal Human [place] 12/17/17 03:55 Influenza Types A,B Direct FA (CESILIA) - Final Mucosa - Nasopharyngeal Laboratory Tests Past 24 Hrs 12/18/17 12/18/17 05:12 05:12 WBC 33.3 H* RBC 4.19 L Hgb 13.2 Hct 38.6 L MCV 92.1 MCH 31.5 MCHC 34.2 RDW 13.5 RDW Differential 44.7 H Plt Count 236 MPV 9.6 Differential Comment SCAN Diff Path Review May foll Sodium 137 Potassium 4.3 Chloride 106 Carbon Dioxide 23.0 Anion Gap 8 BUN 27 H Creatinine 1.01 Estim Creat Clear Calc 78.70 Est GFR (MDRD) Af Amer 96 Est GFR (MDRD) Non-Af 79 BUN/Creatinine Ratio 26.7 H Glucose 136 H Calcium 8.3 L Magnesium 2.5 Clinical Impression(s) from Imaging Studies Chest X-Ray 12/16/17 21:05 IMPRESSION: Normal x-ray examination of the chest. Electronically Signed: Luís Ferrari MD at 21:35 EDT , Service support , Chest X-Ray 12/17/17 09:11 IMPRESSION: Prominent interstitial markings with no distinct focal airspace disease concerning for diffuse peribronchial inflammation in the appropriate clinical setting. Electronically Signed: Robert Scott DO at 9:38 EDT , Service support , Chest CT 12/17/17 11:35 IMPRESSION: Mild to moderate COPD. Focal hemispheric consolidation or mass of the right lower lobe. Neoplasm is not excluded. Consider further evaluation with PET scan. Other smaller areas of atelectasis or infiltrate versus scarring in the right upper lobe and left lower lobe. Electronically Signed: Luís Ferrari MD at 16:55 EDT , Service support , Assessment/Plan Active and Suspected Problems Acute bronchitis (Acute) RECOMMENDATIONS: 1. Broaden antibiotics to include coverage for MRSA. Await finalized sputum culture. 2. Check MRSA screen 3. Favor discontinuation of IV steroids 4. Encourage incentive spirometer use and mobilize patient as tolerated 5. Recommend repeat CT chest in 6-8 weeks following discharge from the hospital. IMPRESSIONS: 1. Shortness of breath secondary to community-acquired pneumonia The patient was initially admitted and placed on ceftriaxone and azithromycin. However, the patient's white blood cell count is risen to 33,000 on these antibiotics. His sputum culture has 4+ gram-positive cocci growing. Given the patient's Humira use, I recommended that his antibiotics be broadened to include vancomycin and cefepime, pending finalized culture results. Will check MRSA screen. Given that the patient is not complaining of current abdominal pain and has no history of COPD or asthma, would recommend discontinuation of steroids. 2. Abnormal chest imaging The patient's CT chest did reveal a right upper lobe infiltrate along with a nodular density/infiltrate in the right lower lobe. In light of the patient's current clinical context, would be most concerning for underlying pulmonary infectious process. Therefore, antibiotics have been broadened as noted above. Nevertheless, would recommended the patient had a repeat CT chest in 6-8 weeks following successful completion of his underlying pneumonia to document clearing or resolution of the nodular density. If unresolved or enlarging, would recommend CT-guided biopsy at that time. 3. Personal history of Crohn's disease on Humira Baseline medications currently on hold. 4. Obesity/GERD/chronic pancreatitis Complicates care, management, recovery and prognosis. Continue home medications as indicated. This note was generated with [employer] software. It may contain incorrect words, spelling, and punctuation that were not noted in checking the note before signing. Code Visit Inpatient E&M: 86562 Init Hosp L3
--- NOTE | 2017-12-18 09:34 | PHA.PHARE_ITS ---
Consult Pharmacy has been consulted to manage selected antiobiotic: Vancomycin Type of Consult: New start Suspected Infection: Pneumonia Labs: Sodium 137 mmol/L (136-145) 12/18/17 05:12 Potassium 4.3 mmol/L (3.5-5.1) 12/18/17 05:12 Chloride 106 mmol/L (98-107) 12/18/17 05:12 Carbon Dioxide 23.0 mmol/L (21.0-32.0) 12/18/17 05:12 Anion Gap 8 (5-15) 12/18/17 05:12 BUN 27 mg/dL (7-18) H 12/18/17 05:12 Creatinine 1.01 mg/dL (0.70-1.30) 12/18/17 05:12 Est GFR (MDRD) Af Amer 96 mL/min (>60) 12/18/17 05:12 Est GFR (MDRD) Non-Af 79 mL/min (>60) 12/18/17 05:12 BUN/Creatinine Ratio 26.7 RATIO (10-20) H 12/18/17 05:12 Glucose 136 mg/dL (74-106) H 12/18/17 05:12 Microbiology: Microbiology 12/17/17 09:00 Sputum, Expectorated/Coughed Gram Stain - Final 12/17/17 03:55 Mucosa - Nasopharyngeal Respiratory Panel (PCR) - Final Human [place] 12/17/17 03:55 Mucosa - Nasopharyngeal Influenza Types A,B Direct FA (CESILIA) - Final Weight used for dosin kg Estimated Creatinine Clearance: 78 mL/min Goal Trough: 15-20 mcg/mL Pharmacy Plan for Drug Dosing: Recommend vancomycin 2000mg IV x1 load, continue 1250mg IV q12h. Check trough prior to 5th dose. Pharmacy Service will continue to monitor and adjust dosing as required. Follow-Up Labs: Trough Vancomycin - 12/20/17 @ 1000
[2017-12-18] MEDS: HYDROcodone Bitartrate/Apap 5/325 Tablet PO ×2 (10:50→21:29)
[2017-12-18] MEDS: guaiFENesin 1,200 MG Tablet 1200 MG PO ×2 (10:55→21:33)
[2017-12-18] MEDS: Enoxaparin 40 MG/0.4 ML Syringe SC (10:56)
[2017-12-18] MEDS: Famotidine 20 MG Tablet PO ×2 (10:57→21:34)
[2017-12-18] MEDS: Cefepime HCl 2 GM in 0.9% NS 100 ML Minibag Q12 IV ×2 (10:57→21:29)
[2017-12-18] MEDS: Ondansetron 4 MG/2 ML Vial IV (10:59)
[2017-12-18] MEDS: LIPASE/PROTEASE/AMYLASE 1 EACH CAPSULE.DR 3 EACH PO (10:59)
[2017-12-18 14:06] LABS: M R Staph aureus DNA By PCR Negative (Negative); Probe Check PASS; Specimen Processing Control PASS
[2017-12-18] MEDS: Cholestyramine/Sucrose 4 GM/PACKET PO (14:26)
[2017-12-18] MEDS: proMETHazine 25 MG/ML Syringe 12.5 MG IV ×2 (14:26→21:00)
[2017-12-18] MEDS: 0.9% NaCl Peripheral Flush Adult/Peds IV (21:00)
[2017-12-19] VITALS (15 sets, daily range): BP systolic 146–156; BP diastolic 81–96; PULSE 67–90; RESP 17–20; TEMP 36.4–36.9; O2SAT 94–95
[2017-12-19] MEDS: HYDROcodone Bitartrate/Apap 5/325 Tablet PO (04:56)
[2017-12-19 06:09] LABS: Hematocrit 37.6 % (40-54); Hemoglobin 12.4 g/dl (13.0-16.5); Mean Corpuscular Hgb 30.5 pg (27.0-32.0); Mean Corpuscular Volume 92.4 fL (80-94); Mean Platelet Vol. 9.8 fl (6.2-12.0); Platelet Count 232 K/mm3 (150-450); RBC Distribution Width CV 13.9 % (11.6-14.6); RBC Distribution Width SD 46.6 fl (35.1-43.9); Red Blood Count 4.07 M/mm3 (4.6-6.2); White Blood Count 27.5 K/mm3 (4.4-11.0)
[2017-12-19 06:16] LABS: Anion Gap 8 (5-15); BUN 29 mg/dL (7-18); BUN/Creat Ratio 31.4 RATIO (10-20); Calcium,Total 7.7 mg/dL (8.5-10.1); Chloride 113 mmol/L (98-107); Creatinine, Serum 0.92 mg/dL (0.70-1.30); EST Glomerular Filtration Rate 87 mL/min (>60); Est Glom Filt Rate - Afr Amer 106 mL/min (>60); Estimated Creatinine Clearance 86.39 ml/min; Glucose 127 mg/dL (74-106); Potassium 4.6 mmol/L (3.5-5.1); Sodium Level 140 mmol/L (136-145)
[2017-12-19 06:33] LABS: Scan Indicated on CBC? Y/N NO
[2017-12-19] MEDS: LIPASE/PROTEASE/AMYLASE 1 EACH CAPSULE.DR PO ×3 (07:19→16:07)
[2017-12-19] MEDS: LIPASE/PROTEASE/AMYLASE 1 EACH CAPSULE.DR 2 CAP PO ×3 (07:19→16:06)
--- NOTE | 2017-12-19 08:18 | PN_ITS ---
Patient Problems: Active and Suspected Problems Acute bronchitis (Acute) Subjective: Patient seen and examined. He is sitting up in the chair in no acute distress. Reports mild dyspnea on exertion remains. Still having some left upper and left lower quadrant abdominal pain, however this is improved. His baseline pain is 4 out of 10 and is currently at a 6 out of 10. Patient maintaining appropriate saturations on room air. Does complain of a nonproductive cough, feeling of tightness/congestion in his chest with coughing. Objective: Recent lab and culture data reviewed. Leukocytosis, improved to 27,500 from 33, 300. Remains afebrile and hemodynamically stable. Viral respiratory panel positive for human metapneumovirus. Blood cultures and sputum culture were negative. - Physical Exam General: Alert, Oriented x3, Cooperative, No apparent distress, Well developed, Well nourished, - - no conversational dyspnea HEENT: Atraumatic, Normocephalic Oral: Moist Mucosa Neck: Supple, No Nodes, Trachea Midline Lungs: No rhonchi, No wheeze, No rales, Diminished, - - Symmetric expansion, no dullness to percussion. No accessory muscle use. Cardiovascular: Regular rate, Regular Rhythm, Normal S1, Normal S2, No murmurs, No rub noted, No Gallop Abdomen: Bowel Sounds Present, Soft, Non-Distended, Obese, Tender - LUQ and LLQ Extremities: No clubbing, No cyanosis, No edema Skin: No rashes, No breakdown Musculoskeletal: No Tenderness to Palpation of Joints or Extremities Lymphatic: No Cervical, Supraclavicular, or Inguinal Adenopathy Neurological: Cranial nerves II-XII grossly intact, Neuro grossly intact, Motor Exam 5/5 strength throughout, - - decreased sensation to bilat LEs Psych/Mental Status: Alert and oriented to time, place, person, mood and affect Vital Signs Temp Pulse Resp BP Pulse Ox 98.5 F 82 18 146/81 H 94 12/19/17 03:54 12/19/17 07:53 12/19/17 03:56 12/19/17 03:54 12/19/17 03:56 Oxygen Flow Rate (L/min) 2 Oxygen Delivery Method Room Air Intake and Output for Last 24 Hours 12/17/17 12/18/17 12/19/17 23:59 23:59 23:59 Intake Total 3391 / 4358 1174 / 1174 Output Total 905 / 905 Balance 2486 / 3453 1174 / 1174 Laboratory Tests Past 24 Hrs 12/18/17 12/19/17 12/19/17 12:11 05:02 05:02 WBC 27.5 H RBC 4.07 L Hgb 12.4 L Hct 37.6 L MCV 92.4 MCH 30.5 MCHC 33.0 RDW 13.9 RDW Differential 46.6 H Plt Count 232 MPV 9.8 Sodium 140 Potassium 4.6 Chloride 113 H Carbon Dioxide 19.0 L Anion Gap 8 BUN 29 H Creatinine 0.92 Estim Creat Clear Calc 86.39 Est GFR (MDRD) Af Amer 106 Est GFR (MDRD) Non-Af 87 BUN/Creatinine Ratio 31.4 H Glucose 127 H Calcium 7.7 L MRSA (PCR) Negative Medical Necessity - Tobacco Use Smoking Status: Never smoker Tobacco Use: Non-smoker Assessment/Plan Active and Suspected Problems Acute bronchitis (Acute) RECOMMENDATIONS: 1. Continue antibiotics 2. Discontinue IV steroids from pulmonary standpoint. May be indicated for suspected Crohn's flare. 3. Encourage incentive spirometer use and mobilize patient as tolerated 4. Recommend repeat CT chest in 6-8 weeks following discharge from the hospital. IMPRESSIONS: 1. Shortness of breath secondary to community-acquired pneumonia The patient was initially admitted and placed on ceftriaxone and azithromycin. However, the patient's white blood cell count is risen to 33,000 on these antibiotics. His sputum culture has 4+ gram-positive cocci growing. Given the patient's Humira use, his antibiotics were broadened to include vancomycin and cefepime. MRSA screen negative. Okay to discontinue steroids from pulmonary perspective, however patient may require continuation for his suspected Crohn's flare. He does not have any known lung disease such as asthma or COPD. 2. Abnormal chest imaging The patient's CT chest did reveal a right upper lobe infiltrate along with a nodular density/infiltrate in the right lower lobe. In light of the patient's current clinical context, would be most concerning for underlying pulmonary infectious process. Therefore, antibiotics have been broadened as noted above. Nevertheless, would recommended the patient had a repeat CT chest in 6-8 weeks following successful completion of his underlying pneumonia to document clearing or resolution of the nodular density. If unresolved or enlarging, would recommend CT-guided biopsy at that time. 3. Personal history of Crohn's disease on Humira Baseline medications currently on hold. May be continued once infectious process is cleared. Still having some LUQ and LLQ pain, which is atypical for Crohn's flare but patient states this is typical for him. 4. Obesity/GERD/chronic pancreatitis Complicates care, management, recovery and prognosis. Continue home medications as indicated. This note was generated with Rollbar dictation software. It may contain incorrect words, spelling, and punctuation that were not noted in checking the note before signing.
--- NOTE | 2017-12-19 08:23 | PN_ITS ---
Patient Problems: Active and Suspected Problems Acute bronchitis (Acute) Subjective: Patient was seen and examined. Feels much better. On oxygen. Says that he is always had elevated white blood cell count. Denies any fever or chills. Vitals/I&O's: Vital Signs Temp Pulse Resp BP Pulse Ox 98.5 F 82 18 146/81 H 94 12/19/17 03:54 12/19/17 07:53 12/19/17 03:56 12/19/17 03:54 12/19/17 03:56 Oxygen Flow Rate (L/min) 2 Oxygen Delivery Method Room Air Intake and Output for Last 24 Hours 12/17/17 12/18/17 12/19/17 23:59 23:59 23:59 Intake Total 3391 / 4358 1174 / 1174 Output Total 905 / 905 Balance 2486 / 3453 1174 / 1174 General: Alert, Oriented x3, Cooperative, - - Obese, Comfortable at rest, no signs of respiratory distress HEENT: Atraumatic, PERRLA, EOMI, Normocephalic Oral: Moist Mucosa Neck: Supple, No JVD, Negative Carotid Bruits Lungs: Clear to auscultation, Normal air movement Cardiovascular: Regular rate, No murmurs Abdomen: Bowel Sounds Present, Soft, Non Tender Extremities: No edema, Capillary Refill Less than 3 Seconds Skin: No rashes, No breakdown Musculoskeletal: No Tenderness to Palpation of Joints or Extremities Lymphatic: No Cervical, Supraclavicular, or Inguinal Adenopathy Neurological: Cranial nerves II-XII grossly intact Psych/Mental Status: Normal Affect, Appropriate Laboratory Results 12/18/17 12:11: MRSA (PCR) Negative 12/19/17 05:02: WBC 27.5 H, RBC 4.07 L, Hgb 12.4 L, Hct 37.6 L, MCV 92.4, MCH 30.5, MCHC 33.0, RDW 13.9, RDW Differential 46.6 H, Plt Count 232, MPV 9.8 12/19/17 05:02: Sodium 140, Potassium 4.6, Chloride 113 H, Carbon Dioxide 19.0 L , Anion Gap 8, BUN 29 H, Creatinine 0.92, Estim Creat Clear Calc 86.39, Est GFR (MDRD) Af Amer 106, Est GFR (MDRD) Non-Af 87, BUN/Creatinine Ratio 31.4 H, Glucose 127 H, Calcium 7.7 L Current Medications Acetaminophen (Tylenol) 650 mg PO Q4H PRN PRN PRN Reason: fever, pain Last Admin: 12/17/17 05:01 Dose: 650 mg Hydrocodone Bitart/Acetaminophen ([place] 5mg-325mg) 1 - 2 tablet PO Q6H PRN PRN PRN Reason: Moderate-severe pain Last Admin: 12/19/17 04:56 Dose: 2 tablet Al Hydroxide/Mg Hydroxide (Mylanta Ii) 30 ml PO Q6H PRN PRN PRN Reason: Gastric burning Albuterol Sulfate (Ventolin Aerosols) 2.5 mg INHALATION Q2H PRN PRN PRN Reason: SHORTNESS OF BREATH Albuterol/Ipratropium (Duoneb) 3 ml INHALATION Q4H.RT [facility] Last Admin: 12/19/17 07:40 Dose: Not Given Cholestyramine Resin (Questran 4gm Packet) 4 gm PO DAILY@1400 [facility] Last Admin: 12/18/17 14:26 Dose: 4 gm Enoxaparin Sodium (Lovenox) 40 mg SC DAILY@1000 [facility] Last Admin: 12/18/17 10:56 Dose: 40 mg Famotidine (Pepcid) 20 mg PO BID [facility] Last Admin: 12/18/17 21:34 Dose: 20 mg Guaifenesin (Mucinex) 1,200 mg PO BID [facility] Last Admin: 12/18/17 21:33 Dose: 1,200 mg Hydralazine HCl (Apresoline Iv) 10 mg IV Q4H PRN PRN PRN Reason: SBP > 160 Sodium Chloride () 1,000 mls @ 125 mls/hr IV .Q8H [facility] Last Admin: 12/18/17 21:00 Dose: 125 mls/hr Cefepime HCl 2 gm/ Sodium (Chloride) 100 mls @ 200 mls/hr IV Q12 [facility] Last Admin: 12/18/17 21:29 Dose: 200 mls/hr Vancomycin HCl 1,250 mg/ (Sodium Chloride) 275 mls @ 183.333 mls/hr IV Q12H [facility] Last Admin: 12/18/17 22:17 Dose: 183.333 mls/hr Magnesium Hydroxide (Milk Of Magnesia) 30 ml PO DAILY PRN PRN PRN Reason: Constipation Methylprednisolone (Solu-Medrol) 40 mg IV Q12 [facility] Last Admin: 12/18/17 21:34 Dose: 40 mg Nutritional Formula (Lactose Free) (Ensure Enlive) 120 ml PO 4X/DAY [facility] Last Admin: 12/18/17 21:33 Dose: 120 ml Ondansetron HCl (Zofran) 4 mg IV Q8H PRN PRN PRN Reason: NAUSEA Last Admin: 12/18/17 10:59 Dose: 4 mg Pancrelipase (Creon Dr 24,000 Units Capsule) 1 each PO TIDCM [facility] Last Admin: 12/19/17 07:19 Dose: 1 each Pancrelipase (Creon Dr 6,000 Units Capsule) 2 each PO TIDCM [facility] Last Admin: 12/19/17 07:19 Dose: 2 each Promethazine HCl (Phenergan) 12.5 mg IV Q6H PRN PRN PRN Reason: NAUSEA/VOMITING Last Admin: 12/18/17 21:00 Dose: 12.5 mg Sodium Chloride () 5 - 30 ml IV UD PRN PRN Reason: SALINE FLUSH Last Admin: 12/18/17 21:00 Dose: 10 ml Temazepam (Restoril) 15 mg PO QHS PRN PRN PRN Reason: insomnia Medical Necessity - Tobacco Use Smoking Status: Never smoker Tobacco Use: Non-smoker Assessment/Plan Active and Suspected Problems Acute bronchitis (Acute) 62-year-old male with past medical history of recurrent for Crohn's disease admitted with progressive generalized weakness associated with cough dyspnea on exertion joint and muscle aches as well as fever. 1. Right lower lobe pneumonia, seen on CT scan of chest, unclear if there is bacterial etiology, MRSA PCR is negative, which it panel shows human Hutchins pneumo vitals. Doubt viral etiology as a cause of this pneumonia as viral pneumonia does not present as a right lower lobe consolidation. On vancomycin and cefepime, neurology team following, would evaluate for ambulation oxygen in a.m. 2. Hyponatremia secondary to hypovolemic hyponatremia, resolved with IV fluids 3. Crohn's disease currently stable patient was on Humira as outpatient, currently on IV steroids 4. Leukocytosis likely related to IV steroids, patient admits to chronic leucocytosis especially last admission in the [facility], will get records 5. Chronic pancreatitis currently stable on pancreatic supplements 6. Obesity with BMI of 35.2 weight loss advised 7. DVT prophylaxis SC Lovenox 8. Disposition: Possible DC in a.m. if patient continues to be stable Code Visit Inpatient E&M: 42107 Subs Hosp L2
[2017-12-19] MEDS: Cefepime HCl 2 GM in 0.9% NS 100 ML Minibag Q12 IV ×2 (09:05→21:14)
[2017-12-19] MEDS: guaiFENesin 1,200 MG Tablet 1200 MG PO ×2 (09:08→21:13)
[2017-12-19] MEDS: Famotidine 20 MG Tablet PO ×2 (09:08→21:13)
[2017-12-19] MEDS: Enoxaparin 40 MG/0.4 ML Syringe SC (09:08)
[2017-12-19 10:21] LABS: Pathologist Review Reviewed
[2017-12-19 10:27] LABS: Pathologist Review Reviewed
[2017-12-19 10:28] LABS: Pathologist Review Reviewed
--- NOTE | 2017-12-19 10:29 | PCA ---
Faxed release of medical records to [facility] STAT line, . Placed release on pt chart.
[2017-12-19] MEDS: Ipratropium/Albuterol Sulfate 3 ML AMPUL.NEB INHALATION ×4 (10:44→22:30)
[2017-12-19] MEDS: 0.9% Normal Saline 1,000 ML 125 ML IV (11:37)
--- NOTE | 2017-12-19 11:41 | CASEMGMT ---
RN YISSEL Face to Face with patient for initial transition planning/care coordination assessment. RN CM introduced self and role at [facility]. Patient lying in bed, alert and oriented. Patient willing to participate in assessment and is able to answer all questions appropriately. Care providers, pharmacy, and demographics verified. See link attached. Patient wishes to discharge home, denies need for home health at this time. Patient states he has no further needs or concerns at this time. CM to follow for discharge planning needs that may arise. Disposition Plan: Patient to discharge home with family support and follow-up plans in place.
[2017-12-19] MEDS: Cholestyramine/Sucrose 4 GM/PACKET PO (13:32)
[2017-12-19] MEDS: 0.9% NaCl Peripheral Flush Adult/Peds IV ×2 (16:05→21:14)
[2017-12-19] MEDS: proMETHazine 25 MG/ML Syringe 12.5 MG IV (21:14)
[2017-12-20] VITALS (9 sets, daily range): BP systolic 146; BP diastolic 83–88; PULSE 56–80; RESP 18–20; TEMP 36.4–37.2; O2SAT 95–97
[2017-12-20] MEDS: Ipratropium/Albuterol Sulfate 3 ML AMPUL.NEB INHALATION ×2 (03:50→07:25)
[2017-12-20 06:33] LABS: Absolute Lymphocyte Count 2.68 X10^3/ul (0.83-4.51); Absolute Neutrophil Count 14.1 X10^3/uL (2.0-7.7); Basophil# 0.05 X10^3/uL; Basophil% 0.3 % (0-1); Hematocrit 36.5 % (40-54); Hemoglobin 12.1 g/dl (13.0-16.5); Lymphocyte # 2.68 X10^3/ul (4.0); Lymphocyte % 13.8 % (19-41); Mean Corp Hgb Conc 33.2 g/gl (32-36); Mean Corpuscular Hgb 30.6 pg (27.0-32.0); Mean Corpuscular Volume 92.2 fL (80-94); Mean Platelet Vol. 9.2 fl (6.2-12.0); Monocyte# 2.28 X10^3/uL; Monocyte% 11.8 % (0-10); Neutrophil # 14.07 X10^3/uL (2.7-7.7); Neutrophil % 72.5 % (47-70); Platelet Count 229 K/mm3 (150-450); RBC Distribution Width SD 47.2 fl (35.1-43.9); Red Blood Count 3.96 M/mm3 (4.6-6.2); White Blood Count 19.4 K/mm3 (4.4-11.0)
[2017-12-20 06:34] LABS: Differential Indicated SCAN CRITERIA MET; POSITIVE COUNT NO; POSITIVE DIFFERENTIAL YES; POSITIVE MORPHOLOGY YES
[2017-12-20 06:38] LABS: Anion Gap 7 (5-15); BUN 30 mg/dL (7-18); BUN/Creat Ratio 34.2 RATIO (10-20); Calcium,Total 8.1 mg/dL (8.5-10.1); Chloride 110 mmol/L (98-107); Creatinine, Serum 0.88 mg/dL (0.70-1.30); EST Glomerular Filtration Rate 93 mL/min (>60); Est Glom Filt Rate - Afr Amer 112 mL/min (>60); Estimated Creatinine Clearance 90.32 ml/min; Glucose 93 mg/dL (74-106); Potassium 3.8 mmol/L (3.5-5.1); Sodium Level 140 mmol/L (136-145)
[2017-12-20 06:55] LABS: Differential Comment SCANNED
[2017-12-20] MEDS: LIPASE/PROTEASE/AMYLASE 1 EACH CAPSULE.DR PO ×2 (07:51→10:52)
[2017-12-20] MEDS: predniSONE 20 MG Tablet 60 MG PO (07:52)
[2017-12-20] MEDS: LIPASE/PROTEASE/AMYLASE 1 EACH CAPSULE.DR 2 CAP PO ×2 (07:52→10:52)
--- NOTE | 2017-12-20 08:13 | PN_ITS ---
Patient Problems: Active and Suspected Problems Acute bronchitis (Acute) Subjective: The patient was seen and examined. He is sitting up in the chair in no acute distress. Reports breathing is almost back to his baseline. Still mildly dyspneic on exertion. Abdominal pain has improved. His IV has infiltrated, mild erythema. Infusion stopped. Objective: Recent lab and culture data reviewed. Viral respiratory panel positive for human metapneumovirus. Blood and sputum cultures are negative. - Physical Exam General: Oriented x3, Cooperative, No apparent distress, Well developed, Well nourished HEENT: Atraumatic, Normocephalic Oral: Moist Mucosa Neck: Supple, No Nodes, Trachea Midline Lungs: - - Very diminished throughout, no appreciable rhonchi, wheezes, or rales. Symmetric expansion. Cardiovascular: Regular rate, Regular Rhythm, Normal S1, Normal S2, No murmurs Abdomen: Bowel Sounds Present, Soft, Tender - mild to LUQ/LLQ Extremities: No clubbing, No cyanosis, Edema Skin: No rashes, No breakdown Musculoskeletal: No Tenderness to Palpation of Joints or Extremities Lymphatic: No Cervical, Supraclavicular, or Inguinal Adenopathy Neurological: Cranial nerves II-XII grossly intact, Neuro grossly intact, Motor Exam 5/5 strength throughout, - - peripheral neuropathy Psych/Mental Status: Alert and oriented to time, place, person, mood and affect Vital Signs Temp Pulse Resp BP Pulse Ox 97.6 F L 64 19 H 146/83 H 96 12/20/17 03:16 12/20/17 07:25 12/20/17 07:25 12/20/17 03:16 12/20/17 03:16 Oxygen Flow Rate (L/min) 2 Oxygen Delivery Method Room Air Weight: 252 lb 3.341 oz Body Mass Index (BMI) 35.2 Intake and Output for Last 24 Hours 12/18/17 12/19/17 12/20/17 23:59 23:59 23:59 Intake Total 4358 / 4358 4021 / 4021 Output Total 905 / 905 675 / 675 Balance 3453 / 3453 3346 / 3346 Microbiology Past 72 Hours 12/17/17 09:00 Gram Stain - Final Sputum, Expectorated/Coughed Respiratory Culture - Final Mixed normal respiratory cr. No Haemophilus, Streptococcus pneumoniae, beta-hemolytic Streptococcus or Staphylococcus aureus isolated. 12/17/17 04:55 Blood Culture - Preliminary Blood Culture (Wb) - Right Hand No growth in 48 hours. 12/17/17 04:55 Blood Culture - Preliminary Blood Culture (Wb) - Anticubital Right No growth in 48 hours. 12/17/17 03:55 Respiratory Panel (PCR) - Final Mucosa - Nasopharyngeal Human Antler 12/17/17 03:55 Influenza Types A,B Direct FA (CESILIA) - Final Mucosa - Nasopharyngeal Laboratory Tests Past 24 Hrs 12/17/17 12/18/17 12/20/17 04:45 05:12 05:58 WBC RBC Hgb Hct MCV MCH MCHC RDW RDW Differential Plt Count MPV Immature Gran % (Auto) Neut % (Auto) Lymph % (Auto) Meriwether % (Auto) Eos % (Auto) Baso % (Auto) Absolute Neuts (auto) Absolute Lymphs (auto) Total Counted Differential Comment Diff Path Review Reviewed Reviewed Sodium 140 Potassium 3.8 Chloride 110 H Carbon Dioxide 23.0 Anion Gap 7 BUN 30 H Creatinine 0.88 Estim Creat Clear Calc 90.32 Est GFR (MDRD) Af Amer 112 Est GFR (MDRD) Non-Af 93 BUN/Creatinine Ratio 34.2 H Glucose 93 Calcium 8.1 L 12/20/17 05:58 WBC 19.4 H RBC 3.96 L Hgb 12.1 L Hct 36.5 L MCV 92.2 MCH 30.6 MCHC 33.2 RDW 14.0 RDW Differential 47.2 H Plt Count 229 MPV 9.2 Immature Gran % (Auto) 1.600 H Neut % (Auto) 72.5 H Lymph % (Auto) 13.8 L Meriwether % (Auto) 11.8 H Eos % (Auto) 0.0 Baso % (Auto) 0.3 Absolute Neuts (auto) 14.1 H Absolute Lymphs (auto) 2.68 Total Counted Not Reportable Differential Comment SCANNED Diff Path Review May foll Sodium Potassium Chloride Carbon Dioxide Anion Gap BUN Creatinine Estim Creat Clear Calc Est GFR (MDRD) Af Amer Est GFR (MDRD) Non-Af BUN/Creatinine Ratio Glucose Calcium Medical Necessity - Tobacco Use Smoking Status: Never smoker Tobacco Use: Non-smoker Assessment/Plan Active and Suspected Problems Acute bronchitis (Acute) RECOMMENDATIONS: 1. Continue antibiotics, change to oral 2. Discontinue steroids from pulmonary standpoint. May be indicated for suspected Crohn's flare. 3. Encourage incentive spirometer use and mobilize patient as tolerated 4. Recommend repeat CT chest in 6-8 weeks following discharge from the hospital. 5. Patient can follow up in the pulmonary clinic for results chest imaging, ensure resolution of underlying pneumonia or nodular density 6. Ambulatory pulse ox prior to discharge. 7. Okay to discharge from pulmonary perspective IMPRESSIONS: 1. Shortness of breath secondary to community-acquired pneumonia The patient was initially admitted and placed on ceftriaxone and azithromycin. However, the patient's white blood cell count is risen to 33,000 on these antibiotics. His sputum culture has 4+ gram-positive cocci growing. Given the patient's Humira use, his antibiotics were broadened to include vancomycin and cefepime. MRSA screen negative. Okay to discontinue steroids from pulmonary perspective, however patient may require continuation for his suspected Crohn's flare. He does not have any known lung disease such as asthma or COPD. 2. Abnormal chest imaging The patient's CT chest did reveal a right upper lobe infiltrate along with a nodular density/infiltrate in the right lower lobe. In light of the patient's current clinical context, would be most concerning for underlying pulmonary infectious process. Therefore, antibiotics have been broadened as noted above. Nevertheless, would recommended the patient had a repeat CT chest in 6-8 weeks following successful completion of his underlying pneumonia to document clearing or resolution of the nodular density. If unresolved or enlarging, would recommend CT-guided biopsy at that time. 3. Personal history of Crohn's disease on Humira Baseline medications currently on hold. May be continued once infectious process is cleared. Still having some LUQ and LLQ pain, which is atypical for Crohn's flare but patient states this is typical for him. 4. Obesity/GERD/chronic pancreatitis Complicates care, management, recovery and prognosis. Continue home medications as indicated. This note was generated with [employer] software. It may contain incorrect words, spelling, and punctuation that were not noted in checking the note before signing.
[2017-12-20] MEDS: 0.9% NaCl Peripheral Flush Adult/Peds IV (08:31)
[2017-12-20 10:07] LABS: Pathologist Review Reviewed
[2017-12-20] MEDS: Enoxaparin 40 MG/0.4 ML Syringe SC (10:37)
[2017-12-20] MEDS: guaiFENesin 1,200 MG Tablet 1200 MG PO (10:37)
[2017-12-20] MEDS: Famotidine 20 MG Tablet PO (10:37)
--- NOTE | 2017-12-20 11:46 | PCM.DC ---
- Discharge Diagnoses Current Active Problems: Current Active and Chronic Problems Acute bronchitis (Acute) Chronic pancreatitis (Chronic) Reason(s) for Visit for Discharge Instructions: Shortness of breath You will use the following diet at home:: Regular Your food should be the consistency of: Regular Your liquids should be the consistency of: Regular/Thin Discharge Activity: Return to Normal Activity Weight Bearing Status: Weight bearing as tolerated Instructions: Acute Bronchitis Additional Instructions: You were in the hospital with pneumonia. You received IV antibiotics. You will be discharged with 4 more days of antibiotics. You will need to follow-up with the pulmonary team that saw you in the hospital for repeat imaging of your chest in 6-8 weeks. Your white cell levels in the blood were high, this could be related to stress. It had started to come down at the time of discharge. You need a repeat blood work to follow-up on it. Allergies/Adverse Reactions: Allergies No Known Allergies Allergy (Verified 01/10/14 03:29) Medications to take at Discharge Adalimumab [Humira] 20 mg SQ Q14D 01/10/14 Omeprazole [Prilosec] 40 mg PO DAILY 01/10/14 Cholestyramine (with Sugar) [Cholestyramine Powder] 1 dose PO DAILY 12/16/17 Lipase/Protease/Amylase [Creon Dr 36,000 Units Capsule] 1 capsule PO TID 12/16/17 Albuterol Inhaler [Ventolin Hfa] 1 - 2 puff INHALATION Q4H PRN PRN #1 inhaler 12/17/17 Amoxicillin/Potassium Clav [Augmentin 875-125 Tablet] 1 ea PO BID #8 tab 12/20/17 Doxycycline 100 mg PO BID #8 cap 12/20/17 Guaifenesin [Mucinex] 1,200 mg PO BID #14 tab 12/20/17 Prednisone 10 mg PO UD #30 tab 12/20/17 The following prescriptions were given: Albuterol Inhaler [Ventolin Hfa] 1 - 2 puff INHALATION Q4H PRN PRN #1 inhaler PRN Reason: Wheezing Amoxicillin/Potassium Clav [Augmentin 875-125 Tablet] 1 ea PO BID #8 tab Doxycycline 100 mg PO BID #8 cap Guaifenesin [Mucinex] 1,200 mg PO BID #14 tab Orders to be completed after discharge: Basic Metabolic Profile (BMP) Location: Laboratory CBC W/Diff, Automated Time Frame: 1 Week, Location: Laboratory Primary Care Physician: Shante Castro MD [Primary Care Provider] - Please follow up with your Primary Care Physician in: within 2 weeks of discharge Please Follow Up With: Humbel Justin MD When: in 4-6 weeks When: Your adult literacy instructor within 2 weeks Proposed Discharge Date: 12/20/17
--- NOTE | 2017-12-20 11:54 | DCINST_ITS ---
- Discharge Diagnoses Current Active Problems: Current Active and Chronic Problems Acute bronchitis (Acute) Chronic pancreatitis (Chronic) Reason(s) for Visit for Discharge Instructions: Shortness of breath You will use the following diet at home:: Regular Your food should be the consistency of: Regular Your liquids should be the consistency of: Regular/Thin Discharge Activity: Return to Normal Activity Weight Bearing Status: Weight bearing as tolerated Instructions: Acute Bronchitis Additional Instructions: You were in the hospital with pneumonia. You received IV antibiotics. You will be discharged with 4 more days of antibiotics. You will need to follow-up with the pulmonary team that saw you in the hospital for repeat imaging of your chest in 6-8 weeks. Your white cell levels in the blood were high, this could be related to stress. It had started to come down at the time of discharge. You need a repeat blood work to follow-up on it. Allergies/Adverse Reactions: Allergies No Known Allergies Allergy (Verified 01/10/14 03:29) Medications to take at Discharge Adalimumab [Humira] 20 mg SQ Q14D 01/10/14 Omeprazole [Prilosec] 40 mg PO DAILY 01/10/14 Cholestyramine (with Sugar) [Cholestyramine Powder] 1 dose PO DAILY 12/16/17 Lipase/Protease/Amylase [Creon Dr 36,000 Units Capsule] 1 capsule PO TID Albuterol Inhaler [Ventolin Hfa] 1 - 2 puff INHALATION Q4H PRN PRN #1 inhaler Amoxicillin/Potassium Clav [Augmentin 875-125 Tablet] 1 ea PO BID #8 tab Doxycycline 100 mg PO BID #8 cap 12/20/17 Guaifenesin [Mucinex] 1,200 mg PO BID #14 tab 12/20/17 Prednisone 10 mg PO UD #30 tab 12/20/17 The following prescriptions were given: Albuterol Inhaler [Ventolin Hfa] 1 - 2 puff INHALATION Q4H PRN PRN #1 inhaler PRN Reason: Wheezing Amoxicillin/Potassium Clav [Augmentin 875-125 Tablet] 1 ea PO BID #8 tab Doxycycline 100 mg PO BID #8 cap Guaifenesin [Mucinex] 1,200 mg PO BID #14 tab Orders to be completed after discharge: Basic Metabolic Profile (BMP) Location: Laboratory CBC W/Diff, Automated Time Frame: 1 Week, Location: Laboratory Primary Care Physician: Shante Castro MD [Primary Care Provider] - Please follow up with your Primary Care Physician in: within 2 weeks of discharge Please Follow Up With: Humble Justin MD When: in 4-6 weeks When: Your clarity developer within 2 weeks Proposed Discharge Date: 12/20/17
--- NOTE | 2017-12-20 11:54 | DS.PCM_ITS ---
Discharge Date and Diagnosis Date of Admission: 12/17/17 Date of Discharge: 12/20/17 - Primary Discharge Diagnosis Active and Suspected Problems Acute bronchitis (Acute) CAP - Secondary Discharge Diagnosis Chronic Problems Chronic pancreatitis (Chronic) Crohn's disease of small intestine (Chronic) Dyslipidemia (Chronic) Hospital Course and Treatment Imaging Results: Clinical Impression(s) from Imaging Studies Chest X-Ray 12/16/17 21:05 IMPRESSION: Normal x-ray examination of the chest. Electronically Signed: Luís Ferrari MD at 21:35 EDT , Service support , Chest X-Ray 12/17/17 09:11 IMPRESSION: Prominent interstitial markings with no distinct focal airspace disease concerning for diffuse peribronchial inflammation in the appropriate clinical setting. Electronically Signed: Robert Scott DO at 9:38 EDT , Service support , Chest CT 12/17/17 11:35 IMPRESSION: Mild to moderate COPD. Focal hemispheric consolidation or mass of the right lower lobe. Neoplasm is not excluded. Consider further evaluation with PET scan. Other smaller areas of atelectasis or infiltrate versus scarring in the right upper lobe and left lower lobe. Electronically Signed: Luís Ferrari MD at 16:55 EDT , Service support , Pulmonology Operations: None, - - cysto, left stent placement Procedures: None Summary of Care Provided: 62-year-old male with past medical history of recurrent Crohn's disease admitted with progressive generalized weakness associated with cough, dyspnea on exertion, joint and muscle aches as well as fever. 1. Right lower lobe pneumonia, Community acquired pneumonia, unspecified organism as etiology, seen on CT scan of chest, MRSA PCR is negative, respiratory panel showed human Bishop pneumo virus. Doubt viral etiology as a cause of this pneumonia as viral pneumonia does not present as a right lower lobe consolidation. He was managed on vancomycin and cefepime. The pulmonology team was following. Patient was discharged on doxycycline and augmentin. He was evaluated for oxygen at discharge and did not qualify. 2. Hyponatremia secondary to hypovolemic hyponatremia, resolved with IV fluids 3. Crohn's disease, patient had no diarrhea in the admission but had abdominal pain and was managed on IV steroids and discharged on po steroid taper. 4. Leukocytosis likely related to IV steroids, patient admits to chronic leucocytosis especially last admission in the [facility], did not get any records from [facility] at time of discharge. He will follow-up in the outpatient with his PCP. 5. Chronic pancreatitis currently stable on pancreatic supplements 6. Obesity with BMI of 35.2 weight loss advised Discharge Diet: No Restrictions Discharge Activity: Return to Normal Activity Weight Bearing Status: Weight bearing as tolerated Home Medications: Medications to take at Discharge Adalimumab [Humira] 20 mg SQ Q14D 01/10/14 Omeprazole [Prilosec] 40 mg PO DAILY 01/10/14 Cholestyramine (with Sugar) [Cholestyramine Powder] 1 dose PO DAILY 12/16/17 Lipase/Protease/Amylase [Creon Dr 36,000 Units Capsule] 1 capsule PO TID Albuterol Inhaler [Ventolin Hfa] 1 puff INHALATION Q4H PRN PRN #1 inhaler Amoxicillin/Potassium Clav [Augmentin 875-125 Tablet] 1 ea PO BID #8 tab Doxycycline 100 mg PO BID #8 cap 12/20/17 Guaifenesin [Mucinex] 1,200 mg PO BID #14 tab 12/20/17 Prednisone 10 mg PO UD #30 tab 12/20/17 Following Prescrptions Were Given to Patient: Albuterol Inhaler [Ventolin Hfa] 1 puff INHALATION Q4H PRN PRN #1 inhaler PRN Reason: Sob &/Or Wheezing Prednisone 10 mg PO UD #30 tab Amoxicillin/Potassium Clav [Augmentin 875-125 Tablet] 1 ea PO BID #8 tab Doxycycline 100 mg PO BID #8 cap Guaifenesin [Mucinex] 1,200 mg PO BID #14 tab Other Amb Orders: Basic Metabolic Profile (BMP) Location: Laboratory Primary Care Physician: Shante Castro MD [Primary Care Provider] - Please follow up with your Primary Care Physician in: within 2 weeks of discharge Please Follow Up With: Humble Justin MD When: in 4-6 weeks When: Your direct selling counselor within 2 weeks Patient Instructions: Acute Bronchitis Disposition: Home Minutes spent on discharge:: 25 Patient Condition:: Stable Medical Necessity - Tobacco Use Smoking Status: Never smoker Tobacco Use: Non-smoker Meaningful Use Info Meaningful Use Diagnoses (Choose all that apply): None applicable Code Visit Inpatient E&M: 33163 Disch Hosp
== END 2017-12-20 13:08 | disposition home or self-care (01) | DRG 194 ==
LOC: ED 12-17 00:21 → MS3 12-17 02:01
PROVIDERS: Internal Medicine; Internal Medicine Critical Care Medicine; Admitting Provider Family Medicine; Emergency Provider Emergency Medicine; Family Provider Internal Medicine; PCP Internal Medicine; Visit Provider Internal Medicine
DX: J18.9 Pneumonia, unspecified organism (principal); K86.1 Other chronic pancreatitis; K50.00 Crohn's disease of small intestine without complications; E87.1 Hypo-osmolality and hyponatremia; J20.9 Acute bronchitis, unspecified; E78.5 Hyperlipidemia, unspecified; E66.9 Obesity, unspecified; Z68.35 Body mass index [BMI] 35.0-35.9, adult; K21.9 Gastro-esophageal reflux disease without esophagitis
CPT/HCPCS: 36415; 71045; 71046; 71250; 80048; 81001; 83605; 83735; 84484; 85025; 85027; 87040; 87070; 87205; 87633; 87641; 87804; 93005; 94640; 94667; 94668; 97802; 99284; J7030; J7040; J7050; A4216; J2405

== ENCOUNTER → 2018-02-21 12:22 | Outpatient (CLI) | payer BC, SELFPAY ==
[2018-02-21 12:30] VITALS: PULSE 62; PULSE 72; PULSE 76; PULSE 85; PULSE 91; PULSE 93; PULSE 98; O2SAT 96; O2SAT 97; O2SAT 98
--- NOTE | 2018-02-22 07:20 | WT_ITS ---
PSN 6 Minute Walk Test - 6 Minute Walk Test 6 Minute Walk Test: 6 Minute Walk Test PSN:6-Minute Walk Test Start: 02/21/18 12: 58 Freq: Status: Active Protocol: [id number].6MINW Document 02/21/18 12:30 JLA (Rec: 02/21/18 13:04 JLA [id number]) 6 Minute Walk Test Date Performed 02/21/18 Time Performed 12:30 Height 5 ft 11 in Weight: 250 lb 2.49 oz Weight in Pounds 250.[address]: Vickie Gutierrez Assistive device used: None Pre-test Oxygen Delivery Method Room Air Pulse Ox (%) 98 Pulse Rate (60-100 beats/min) 76 Dyspnea Monika Scale (0-10) 0 Exertion Monika Scale (6-20) 6 1st minute Oxygen Delivery Method Room Air Pulse Ox (%) 96 Pulse Rate (60-100 beats/min) 62 2nd minute Oxygen Delivery Method Room Air Pulse Ox (%) 96 Pulse Rate (60-100 beats/min) 91 3rd minute Oxygen Delivery Method Room Air Pulse Ox (%) 96 Pulse Rate (60-100 beats/min) 93 4th minute Oxygen Delivery Method Room Air Pulse Ox (%) 97 Pulse Rate (60-100 beats/min) 98 Dyspnea Monika Scale (0-10) 4 Exertion Monika Scale (6-20) 13 Number of Rests Taken 1 Reported Symptoms Increased Work of Breathing 5th minute Oxygen Delivery Method Room Air Pulse Ox (%) 96 Pulse Rate (60-100 beats/min) 85 6th minute Oxygen Delivery Method Room Air Pulse Ox (%) 96 Pulse Rate (60-100 beats/min) 93 Dyspnea Monika Scale (0-10) 4 Exertion Monika Scale (6-20) 13 Post-test Oxygen Delivery Method Room Air Pulse Ox (%) 98 Pulse Rate (60-100 beats/min) 72 Full Laps Walked 18 Partial Lap, Number of Tiles Walked 43 Total Distance Walked (ft) 1105 - Interpretation Interpretation: The patient ambulated 1105 feet over the course of 6 minutes beginning on room air without assistive devices or breaks. Pretesting oxygen saturation was noted to be 98% on room air. With ambulation, the michaela oxygen saturation was 96%. There was no significant exertional oxygen desaturation noted. - Recommendations Recommendations: There is no indication for the use of supplemental oxygen at this time.
== END ==
PROVIDERS: Family Provider Internal Medicine; PCP Internal Medicine; Visit Provider Nurse Practitioner Acute Care
DX: J20.9 Acute bronchitis, unspecified (principal)
CPT/HCPCS: 94618

== ENCOUNTER → 2018-03-02 13:12 | Outpatient (CLI) | payer BC, SELFPAY ==
--- NOTE | 2018-03-02 14:34 | PFTCOMP_ITS ---
COMPLETE PULMONARY FUNCTION TEST INTERPRETATION Brief HPI: Patient is a 62 year old male, currently under the care of Vickie Gutierrez, who presents to [facility] for complete pulmonary function tests secondary to diagnosis of acute bronchitis. Respiratory therapist reports good effort, but not reproducible results. Interpretation: Forced expiration spirometry shows no large airways obstructive ventilatory defect with an FEV1 of 71% predicted. There is no significant bronchodilator response by ATS criteria. Spirograms are of good quality and plateau normally. The respiratory flow volume loop shows a normal pattern. Lung volumes by body plethysmography show a decreased total lung capacity at 4.78 L, 70% predicted. All other lung volumes are reduced symmetrically. Diffusion capacity by carbon monoxide is normal at 77% predicted. The airway resistance is normal. No previous pulmonary function tests were available for review. Impression: Mild restrictive ventilatory defect, but caution with interpretation as values were not reproducible.
== END ==
PROVIDERS: Family Provider Internal Medicine; PCP Internal Medicine; Visit Provider Nurse Practitioner Acute Care
DX: J20.9 Acute bronchitis, unspecified (principal)
CPT/HCPCS: 94060; 94726; 94729

== ENCOUNTER 2018-05-17 18:24 | Inpatient (IN) | payer BC, SELFPAY ==
[2018-05-17 18:25] VITALS: BP 153/84; PULSE 103; RESP 18; TEMP 37; O2SAT 96; BMI 34.4
--- NOTE | 2018-05-17 18:40 | ED.DCSUM_ITS ---
- ER Visit Summary Date of Service: 05/17/18 Chief Complaint: Abdominal pain History of Present Illness: The patient is a 62 M 2 day history right sided abdominal pain nausea and vomiting. States subjective fevers. Mild dysuria. Normal bowel movement yesterday. Normal flatus. Tylenol 3 taken at 3 PM. States similar symptoms of pancreatitis 1.5 years ago. History of Crohn's disease with bowel resection. Appendectomy and cholecystectomy in 2009. Pain sharp in nature 8 out of 10. Physical Examination: General: Alert and oriented ?3, mild distress HEENT: Normocephalic, atraumatic. Mild dry mucosa membranes. Normal conjunctiva. Neck: supple, nontender. Cardiovascular: Regular rate and rhythm, no murmurs Respiratory: Normal breath sounds, symmetric, no distress Abdomen: Soft, right upper quadrant tenderness, no guarding or rebound, nondistended, normal bowel sounds. Extremities: Nontender, no edema, pulses intact ?4 Neuro: no focal neurological deficits. Test Results: White count 12.7 hemoglobin 15.3. Creatinine 0.89. Lipase 117. ALP 132, ALT 77, AST 74. Total bili 1.2. CT scan abdomen pelvis notes mild prominence of the biliary system per radiology. No obstruction. Emergency Department Course and Treatment: Patient treated IV fluids, Dilaudid Zofran, symptoms are improving. Labs noted mild transaminitis. Normal lipase. White count 12.7. CT scan note mild prominence biliary system. History cholecystectomy and appendectomy. History not concerning of choledocholithiasis. Patient states his gallbladder [place] [address] Romero. Patient states GI doctor for his Crohn's at [facility], however states he would like to try to stay here at this hospital. Discussed surgeon from other group Dr. Maya does perform ERCPs if needed. He is in agreement's with this. I discussed with hospitalist, Dr. Bassett, who request I speak with surgery group. Dr. Sinha was operations staff specialist security which I discussed with him, he states he cannot help tonight and his partner can be consulted in the morning. I relayed this to the hospitalist who will admit primarily and consult surgery in the morning. Patient had mild return of symptoms on reevaluation treated with additional Dilaudid and Zofran continued IV fluids. Treatment Plan: [] Disposition: Admission Impression: 1. Abdominal pain 2. Possible choledocholithiasis 3. Transaminitis This note was generated with [employer] dictation software. It may contain incorrect words, spelling, and punctuation that were not noted in review of the chart prior to signing ED Disposition - Plan for ED Patient: Disposition: Acute Care Hospital [facility] Chief Complaint: Abd Pain Diagnosis: Abdominal pain, Choledocholithiasis, Transaminitis Referrals: Shante Castro MD [Primary Care Provider] -
--- NOTE | 2018-05-17 18:54 | CT_ITS ---
STUDY: CT ABDOMEN AND PELVIS WITH CONTRAST REASON FOR EXAM: Male, 62 years old. Abdominal pain RADIATION DOSAGE (If Supplied By Facility): CTDIvol = ( 19.92 ) mGy, DLP = ( 1222.97 ) mGycm TECHNIQUE: Transaxial images were obtained from the dome of the diaphragm to the symphysis pubis without oral contrast. 100ml ml of Isovue 300 contrast was administered. Sagittal and coronal images were reconstructed. Individualized dose optimization techniques were used for this CT. COMPARISON: January 22, 2014 FINDINGS: The visualized lung bases are unremarkable. The visualized portions of the heart are within normal limits. Normal liver. Nonvisualization of the gallbladder. Mild prominence of the biliary system. Normal spleen. Normal pancreas. Normal bilateral adrenal glands. 3 mm nonobstructive stone in the right kidney. Normal left kidney. Normal visualized stomach. Normal small intestine. Mild diverticulosis of the colon. Prior colonic surgery. The appendix is not visualized. Normal abdominal aorta. Normal inferior vena cava. Normal retroperitoneum. Normal urinary bladder. Interval repair of ventral hernias of the anterior abdominal wall. Degenerative vertebral changes. CT/Abdomen/Pelvis WITH Contrast IMPRESSION: Mild biliary prominence. Mild colonic diverticulosis. Nonobstructive right renal stone. No hydronephrosis. Electronically Signed: Cayden Barakat DO at 21:44 EDT Tel [phone], Service support ,
[2018-05-17] MEDS: 0.9% Normal Saline 1,000 ML 1000 ML IV (19:30)
[2018-05-17] MEDS: HYDROmorphone 1 MG/ML Syringe IV (19:30)
[2018-05-17] MEDS: Ondansetron 4 MG/2 ML Vial IV ×2 (19:30→23:00)
[2018-05-17 19:53] LABS: Absolute Lymphocyte Count 2.44 X10^3/ul (0.83-4.51); Absolute Neutrophil Count 8.3 X10^3/uL (2.0-7.7); Basophil# 0.04 X10^3/uL; Basophil% 0.3 % (0-1); Differential Indicated SCAN CRITERIA MET; Eosinophil# 0.13 X10^3/uL; Hematocrit 43.4 % (40-54); Hemoglobin 15.3 g/dl (13.0-16.5); Lymphocyte # 2.44 X10^3/ul (4.0); Lymphocyte % 19.3 % (19-41); Mean Corp Hgb Conc 35.3 g/gl (32-36); Mean Corpuscular Hgb 31.7 pg (27.0-32.0); Mean Corpuscular Volume 89.9 fL (80-94); Mean Platelet Vol. 9.1 fl (6.2-12.0); Monocyte# 1.69 X10^3/uL; Monocyte% 13.3 % (0-10); Neutrophil # 8.32 X10^3/uL (2.7-7.7); Neutrophil % 65.8 % (47-70); POSITIVE COUNT NO; POSITIVE DIFFERENTIAL YES; POSITIVE MORPHOLOGY YES; Platelet Count 262 K/mm3 (150-450); RBC Distribution Width CV 13.1 % (11.6-14.6); RBC Distribution Width SD 42.7 fl (35.1-43.9); Red Blood Count 4.83 M/mm3 (4.6-6.2); White Blood Count 12.7 K/mm3 (4.4-11.0)
[2018-05-17 20:24] VITALS: BP 161/93; PULSE 71; RESP 14; O2SAT 95
[2018-05-17 20:34] LABS: ALB/GLOB Ratio 0.6 RATIO (0.9-2.4); AST(SGOT) 74 U/L (15-37); Alanine Aminotransfer ALT/SGPT 77 U/L (16-61); Albumin, Serum 3.2 g/dL (3.2-5.0); Alkaline Phosphatase 132 U/L (45-117); Anion Gap 10 (5-15); BUN 17 mg/dL (7-18); BUN/Creat Ratio 19.1 RATIO (10-20); Calcium,Total 8.8 mg/dL (8.5-10.1); Chloride 101 mmol/L (98-107); Creatinine, Serum 0.89 mg/dL (0.70-1.30); EST Glomerular Filtration Rate 91 mL/min (>60); Est Glom Filt Rate - Afr Amer 110 mL/min (>60); Estimated Creatinine Clearance 89.31 ml/min; Glucose 101 mg/dL (74-106); Lipase 117 U/L (73-393); Potassium 3.7 mmol/L (3.5-5.1); Protein, Total 8.2 g/dL (6.4-8.2); Sodium Level 135 mmol/L (136-145)
[2018-05-17] MEDS: 0.9% Normal Saline 1,000 ML 150 ML IV (21:01)
[2018-05-17 21:30] LABS: Bacteria 0 SEEN /hpf (None Seen); Mucous, Urine 0 SEEN /hpf (<or=2+); Red Blood Cells-Urine 0 SEEN /hpf (0-5); Squamous Epithelial Cells - UA 0 SEEN /hpf (0-5); White Blood Cells 0 SEEN /hpf (0-5)
[2018-05-17 21:36] LABS: Color, Urine Yellow (Yellow); Glucose, Dipstick Normal (Normal); Ketone-Dipstick Negative (Negative); Leukocyte Esterase-Dipstick Negative /ul (Negative); Nitrite-Dipstick Negative (Negative); Occult Blood-Urine 25 /ul (Negative); Protein-Dipstick Negative (Negative); Specific Gravity, Urine 1.005 (1.002-1.030); Urine Bilirubin Dipstick Negative (Negative); Urine Clarity Clear (Clear); Urine Urobilinogen Normal (Normal)
[2018-05-17 22:12] VITALS: BP 150/87; PULSE 73; RESP 18; O2SAT 98
--- NOTE | 2018-05-17 22:28 | HP.PCM_ITS ---
Problem List (1) Abdominal pain Status: Acute (2) Choledocholithiasis Status: Acute (3) Transaminitis Status: Acute (4) CAP (community acquired pneumonia) Status: Resolved Qualifiers: Laterality: right Lung location: lower lobe of lung Qualified Code(s): J18.1 - Lobar pneumonia, unspecified organism (5) Acute bronchitis Status: Resolved Qualifiers: Bronchitis organism: unspecified organism Qualified Code(s): J20.9 - Acute bronchitis, unspecified History of Present Illness Date of Admission: 05/17/18 Chief Complaint: Abdominal pain, nausea vomiting ?2 days. The patient is a 62 year old M with a significant history of appendectomy; bowel surgery x 2; cholecystectomy; Crohn's disease; pancreatitis who presents with abdominal pain, nausea and vomiting x 2 days. His abdominal pain is located at the right lumbar; umbilical region; and left lumbar area. His abdominal pain radiates to his right flank. Patient reports that he is unable to keep anything down. His abdominal pain around history is 1 flanks. He reports a malaise for 1 week. Abdominal pain, nausea and vomiting. With his transaminitis and a history of cholecystectomy this is probable choledocholithiasis Supportive treatment with IVF, anti-emetics and IV pain medication NPO for now Trend CBC and BMP. Dr. Maya, Surgeon consulted.Patient likely may need MRCP. Will defer to surgeon. Asthma Albuterol continued Crohn's disease Patient takes adalimumab every 14 days. This is due on 05/21/2018 DVT prophylaxis Subcutaneous heparin. Past Medical History Past Medical History (Chronic Problems): Chronic Problems (Last Reviewed 05/17/18 @ 23:56 by Ananth Bassett MD) Gynecomazia (Chronic) Chronic pancreatitis (Chronic) Crohn's disease of small intestine (Chronic) Dyslipidemia (Chronic) Medical History: Medical History (Last Reviewed 05/17/18 @ 23:56 by Ananth Bassett MD) Gynecomazia (Chronic) N62 Acute bronchitis (Acute) J20.9 Chronic pancreatitis (Chronic) K86.1 Crohn's disease of small intestine (Chronic) K50.00 Dyslipidemia (Chronic) E78.5 Allergies No Known Allergies Allergy (Verified 05/17/18 18:26) Home Medications: Ambulatory Orders Medication Instructions Recorded Adalimumab [Humira] 20 mg SQ Q14D 01/10/14 Omeprazole [Prilosec] 40 mg PO DAILY 01/10/14 Cholestyramine (with Sugar) 1 dose PO DAILY 12/16/17 [Cholestyramine Powder] Lipase/Protease/Amylase [Creon Dr 1 cap PO TID 12/16/17 36,000 Units Capsule] Albuterol Inhaler [Ventolin Hfa] 1 puff INHALATION Q4H PRN PRN #1 12/20/17 inhaler albuterol sulfate HFA 90 2 puff INHALATION Q6H PRN #1 device 04/12/18 mcg/actuation aerosol inhaler Surgical History: Surgical History (Last Reviewed 05/17/18 @ 23:56 by Ananth Bassett MD) Abdominal hernia (Resolved) K46.9 History of bowel resection (Resolved) Z98.890, Z90.49 History of cholecystectomy (Resolved) Z90.49 History of appendectomy (Resolved) Z90.49 Surgical History: - - Bowel resection, appendectomy, cholecystectomy, ventral hernia repair, right fifth toe resection. Psychiatric History: No pertinent psych hx Lives: Spouse/ Significant Other Smoking Status: Never smoker Alcohol: None - *Family History Maternal History Items: No pertinent history Paternal History Items: - - Father with a history of lung cancer and concurrent tobacco use. Review of Systems Constitutional: Reports: Malaise HEENT: Denies: Head Aches, Sinus Congestion, Sinus Drainage Cardiovascular: Denies: Chest Pain, Palpitations Respiratory: Denies: Cough, Shortness of breath at rest, Sputum production Gastrointestinal: Reports: Abdominal Pain, Nausea, Vomiting Genitourinary: Reports: Dysuria Musculoskeletal: Denies: Joint Pain, Joint Tenderness Skin: Denies: Rash, Wounds Neurological: Denies: Numbness, Tingling, Focal weakness Psychiatric: Denies: Anxiety, Depression, Homicidal Ideations, Suicidal Ideations Hematologic/ Lymphatic: Denies: Easy Bruising, Easy Bleeding VTE Information - Inpt Only VTE Present on Admission: No VTE Mechan Device Prophylaxis: None VTE Pharm Prophylaxis ordered?: Yes Patient Problems: Active and Suspected Problems (Last Reviewed 05/17/18 @ 23:56 by Ananth Bassett MD) Abdominal pain (Acute) Choledocholithiasis (Acute) Transaminitis (Acute) - Physical Exam General: Alert, Oriented x3, Cooperative HEENT: Atraumatic, PERRLA, EOMI, Normocephalic Neck: Supple, No JVD, Negative Carotid Bruits Lungs: Clear to auscultation Cardiovascular: Regular rate, No murmurs Abdomen: Bowel Sounds Present, Soft, Non-Distended, Obese, Tender - Right lumbar area Extremities: No edema, Capillary Refill Less than 3 Seconds Skin: No rashes, No breakdown Musculoskeletal: No Tenderness to Palpation of Joints or Extremities Neurological: Cranial nerves II-XII grossly intact Psych/Mental Status: Normal Affect, Appropriate Vital Signs Temp Pulse Resp BP Pulse Ox 98.6 F 73 18 150/87 H 98 05/17/18 18:25 05/17/18 22:12 05/17/18 22:12 05/17/18 22:12 05/17/18 22:12 Oxygen Delivery Method Room Air Weight: 112.037 kg Body Mass Index (BMI) 34.4 Laboratory Tests Past 24 Hrs 05/17/18 05/17/18 05/17/18 19:25 19:25 20:45 WBC 12.7 H RBC 4.83 Hgb 15.3 Hct 43.4 MCV 89.9 MCH 31.7 MCHC 35.3 RDW 13.1 RDW Differential 42.7 Plt Count 262 MPV 9.1 Immature Gran % (Auto) 0.300 Neut % (Auto) 65.8 Lymph % (Auto) 19.3 [place] % (Auto) 13.3 H Eos % (Auto) 1.0 Baso % (Auto) 0.3 Absolute Neuts (auto) 8.3 H Absolute Lymphs (auto) 2.44 Total Counted Not Reportable Differential Comment Diff Path Review May foll Sodium 135 L Potassium 3.7 Chloride 101 Carbon Dioxide 24.0 Anion Gap 10 BUN 17 Creatinine 0.89 Estim Creat Clear Calc 89.31 Est GFR (MDRD) Af Amer 110 Est GFR (MDRD) Non-Af 91 BUN/Creatinine Ratio 19.1 Glucose 101 Calcium 8.8 Total Bilirubin 1.20 H AST 74 H ALT 77 H Alkaline Phosphatase 132 H Total Protein 8.2 Albumin 3.2 Globulin 5.0 H Albumin/Globulin Ratio 0.6 L Lipase 117 Urine Color Yellow Urine Clarity Clear Urine pH 7.0 Ur Specific [place] 1.005 Urine Protein Negative Urine Glucose (UA) Normal Urine Ketones Negative Urine Occult Blood 25 H Urine Nitrite Negative Urine Bilirubin Negative Urine Urobilinogen Normal Ur Leukocyte Esterase Negative Urine RBC 0 SEEN Urine WBC 0 SEEN Ur Squamous Epith Cells 0 SEEN Urine Bacteria 0 SEEN Urine Mucus 0 SEEN Assessment/Plan All Active Problems (Last Reviewed 05/17/18 @ 23:56 by Ananth Bassett MD) Abdominal pain (Acute) Choledocholithiasis (Acute) Transaminitis (Acute) CAP (community acquired pneumonia) (Resolved) Abdominal hernia (Resolved) History of bowel resection (Resolved) History of cholecystectomy (Resolved) History of appendectomy (Resolved) Acute bronchitis (Resolved) The patient is a 62 year old M with a significant history of appendectomy; bowel surgery x 2; cholecystectomy; Crohn's disease; pancreatitis who presents with abdominal pain, nausea and vomiting. Abdominal pain, nausea and vomiting. With his transaminitis and a history of cholecystectomy this is probable choledocholithiasis Supportive treatment with IVF, anti-emetics and IV pain medication NPO for now Trend CBC and BMP. Dr. Maya, Surgeon consulted.Patient likely may need MRCP. Will defer to surgeon. Asthma Albuterol continued Crohn's disease Patient takes adalimumab every 14 days. This is due on 05/21/2018 DVT prophylaxis Subcutaneous heparin. Code Visit Inpatient E&M: 84769 Init Hosp L3
[2018-05-17] MEDS: HYDROmorphone 0.5 MG/0.5 ML SYRINGE IV (23:00)
[2018-05-17 23:29] VITALS: BMI 34.9
[2018-05-17 23:39] LABS: Lactic Acid 1.2 mmol/L (0.4-2.0)
[2018-05-17 23:48] VITALS: BP 142/83; PULSE 74; RESP 16; TEMP 37.2; O2SAT 97
[2018-05-17] MEDS: Lactated Ringers 1,000 ML 100 ML IV (23:51)
[2018-05-17 23:53] VITALS: O2SAT 97
[2018-05-18] VITALS (12 sets, daily range): BP systolic 130–164; BP diastolic 77–91; PULSE 64–98; RESP 16–20; TEMP 36.2–37.2; O2SAT 94–100; BMI 34.9
[2018-05-18] MEDS: Ondansetron 4 MG/2 ML Vial IV ×2 (01:50→08:04)
[2018-05-18] MEDS: 0.9% NaCl Peripheral Flush Adult/Peds IV ×2 (01:50→06:16)
[2018-05-18] MEDS: HYDROmorphone 0.5 MG/0.5 ML SYRINGE IV ×3 (01:51→09:01)
[2018-05-18 06:22] LABS: Anion Gap 7 (5-15); BUN 12 mg/dL (7-18); BUN/Creat Ratio 14.3 RATIO (10-20); Calcium,Total 8.5 mg/dL (8.5-10.1); Chloride 102 mmol/L (98-107); Creatinine, Serum 0.84 mg/dL (0.70-1.30); EST Glomerular Filtration Rate 97 mL/min (>60); Est Glom Filt Rate - Afr Amer 118 mL/min (>60); Estimated Creatinine Clearance 94.62 ml/min; Glucose 111 mg/dL (74-106); Sodium Level 135 mmol/L (136-145)
[2018-05-18 06:23] LABS: Absolute Lymphocyte Count 2.06 X10^3/ul (0.83-4.51); Basophil# 0.05 X10^3/uL; Basophil% 0.6 % (0-1); Eosinophil# 0.12 X10^3/uL; Eosinophils% 1.4 % (0-5); Hematocrit 42.3 % (40-54); Hemoglobin 14.5 g/dl (13.0-16.5); Lymphocyte # 2.06 X10^3/ul (4.0); Lymphocyte % 23.9 % (19-41); Mean Corp Hgb Conc 34.3 g/gl (32-36); Mean Corpuscular Hgb 31.1 pg (27.0-32.0); Mean Corpuscular Volume 90.8 fL (80-94); Mean Platelet Vol. 9.2 fl (6.2-12.0); Monocyte# 1.41 X10^3/uL; Monocyte% 16.3 % (0-10); Neutrophil # 4.96 X10^3/uL (2.7-7.7); Neutrophil % 57.5 % (47-70); Platelet Count 260 K/mm3 (150-450); RBC Distribution Width CV 13.1 % (11.6-14.6); RBC Distribution Width SD 43.3 fl (35.1-43.9); Red Blood Count 4.66 M/mm3 (4.6-6.2); White Blood Count 8.6 K/mm3 (4.4-11.0)
[2018-05-18 06:29] LABS: POSITIVE COUNT NO; POSITIVE DIFFERENTIAL NO; POSITIVE MORPHOLOGY NO
--- NOTE | 2018-05-18 07:22 | NURSING ---
notified Francesco of his consult for this patient. Dr. Maya verbalized that he would be up this morning to assess patient.
[2018-05-18] MEDS: Pantoprazole Sodium 40 MG Tablet PO (08:04)
[2018-05-18] MEDS: Lactated Ringers 1,000 ML 100 ML IV (08:04)
[2018-05-18 08:25] LABS: AST(SGOT) 150 U/L (15-37); Alanine Aminotransfer ALT/SGPT 142 U/L (16-61); Albumin, Serum 2.9 g/dL (3.2-5.0); Alkaline Phosphatase 161 U/L (45-117); Bilirubin, Direct 2.22 mg/dL (0.00-0.30); Globulin 4.4 g/dL (2.2-4.2); Protein, Total 7.3 g/dL (6.4-8.2)
--- NOTE | 2018-05-18 08:33 | PCM.CONS.GEN ---
Problem List (1) Obstructive jaundice Status: Acute Reason for Consult Date of Consultation: 05/18/18 History of Present Illness: The patient is a 62 year old M who presented with right upper quadrant pain radiating to the back. The patient is also having nausea vomiting. The patient has had pain since Tuesday. He says that it is similar to when he had pancreatitis a year ago. Patient reports he had cholecystectomy 8 years ago. He says that he has not had any other issues. He has a chronic right lower quadrant pain that he says is from his Crohn's. Past Medical History Past Medical History (Chronic Problems): Chronic Problems (Last Reviewed 05/17/18 @ 23:56 by Ananth Bassett MD) Gynecomazia (Chronic) Chronic pancreatitis (Chronic) Crohn's disease of small intestine (Chronic) Dyslipidemia (Chronic) Medical History: Medical History (Last Reviewed 05/17/18 @ 23:56 by Ananth Bassett MD) Gynecomazia (Chronic) N62 Acute bronchitis (Resolved) J20.9 Chronic pancreatitis (Chronic) K86.1 Crohn's disease of small intestine (Chronic) K50.00 Dyslipidemia (Chronic) E78.5 Allergies No Known Allergies Allergy (Verified 05/17/18 18:26) Home Medications: Ambulatory Orders Medication Instructions Recorded Adalimumab [Humira] 20 mg SQ Q14D 01/10/14 Omeprazole [Prilosec] 40 mg PO DAILY 01/10/14 Cholestyramine (with Sugar) 1 dose PO QHS 12/16/17 [Cholestyramine Powder] Lipase/Protease/Amylase [Creon Dr 1 cap PO TID PRN 12/16/17 36,000 Units Capsule] Albuterol Inhaler [Ventolin Hfa] 1 puff INHALATION Q4H PRN PRN #1 12/20/17 inhaler albuterol sulfate HFA 90 2 puff INHALATION Q6H PRN #1 device 04/12/18 mcg/actuation aerosol inhaler Surgical History: Surgical History (Last Reviewed 05/17/18 @ 23:56 by Ananth Bassett MD) Abdominal hernia (Resolved) K46.9 History of bowel resection (Resolved) Z98.890, Z90.49 History of cholecystectomy (Resolved) Z90.49 History of appendectomy (Resolved) Z90.49 Surgical History: - - Bowel resection, appendectomy, cholecystectomy, ventral hernia repair, right fifth toe resection. Psychiatric History: No pertinent psych hx Lives: Spouse/ Significant Other Smoking Status: Never smoker Alcohol: None - *Family History Maternal History Items: No pertinent history Paternal History Items: - - Father with a history of lung cancer and concurrent tobacco use. Review of Systems Constitutional: Denies: Fever HEENT: Denies: Difficulty Swallowing Cardiovascular: Denies: Chest Pain Respiratory: Denies: Shortness of Breath Gastrointestinal: Reports: Abdominal Pain, Nausea, Vomiting. Denies: Diarrhea, Hematochezia Genitourinary: Denies: Frequency Musculoskeletal: Denies: Joint Tenderness Skin: Reports: Jaundice Neurological: Denies: Difficulty swallowing Hematologic/ Lymphatic: Denies: Anemia Patient Problems: Active and Suspected Problems (Last Reviewed 05/17/18 @ 23:56 by Ananth Bassett MD) Abdominal pain (Acute) Choledocholithiasis (Acute) Transaminitis (Acute) Obstructive jaundice (Acute) - Physical Exam General: Alert, Oriented x3, Cooperative HEENT: Atraumatic Neck: Supple Lungs: Normal air movement Cardiovascular: Regular rate, Regular Rhythm Abdomen: Soft, Non-Distended, Tender - Tender in the right upper quadrant and right lower quadrant. More so in the right upper quadrant. No guarding. Skin: No rashes Musculoskeletal: No Muscle Wasting Neurological: Cranial nerves II-XII grossly intact Psych/Mental Status: Normal Affect Vital Signs Temp Pulse Resp BP Pulse Ox 97.1 F L 64 20 H 151/83 H 95 05/18/18 05:30 05/18/18 05:30 05/18/18 05:30 05/18/18 05:30 05/18/18 06:55 Oxygen Delivery Method Room Air Weight: 250 lb 7.122 oz Body Mass Index (BMI) 34.9 Intake and Output for Last 24 Hours 05/16/18 05/17/18 05/18/18 23:59 23:59 23:59 Intake Total 22.4 / 22.4 550 / 550 Output Total 1050 / 1050 Balance 22.4 / 22.4 -500 / -500 Laboratory Tests Past 24 Hrs 05/17/18 05/18/18 05/18/18 23:05 05:50 05:50 WBC 8.6 RBC 4.66 Hgb 14.5 Hct 42.3 MCV 90.8 MCH 31.1 MCHC 34.3 RDW 13.1 RDW Differential 43.3 Plt Count 260 MPV 9.2 Immature Gran % (Auto) 0.300 Neut % (Auto) 57.5 Lymph % (Auto) 23.9 [place] % (Auto) 16.3 H Eos % (Auto) 1.4 Baso % (Auto) 0.6 Absolute Neuts (auto) 5.0 Absolute Lymphs (auto) 2.06 Total Counted Not Reportable Sodium 135 L Potassium 4.0 Chloride 102 Carbon Dioxide 26.0 Anion Gap 7 BUN 12 Creatinine 0.84 Estim Creat Clear Calc 94.62 Est GFR (MDRD) Af Amer 118 Est GFR (MDRD) Non-Af 97 BUN/Creatinine Ratio 14.3 Glucose 111 H Lactic Acid 1.2 Calcium 8.5 Total Bilirubin Direct Bilirubin AST ALT Alkaline Phosphatase Total Protein Albumin Globulin 05/18/18 05:50 WBC RBC Hgb Hct MCV MCH MCHC RDW RDW Differential Plt Count MPV Immature Gran % (Auto) Neut % (Auto) Lymph % (Auto) [place] % (Auto) Eos % (Auto) Baso % (Auto) Absolute Neuts (auto) Absolute Lymphs (auto) Total Counted Sodium Potassium Chloride Carbon Dioxide Anion Gap BUN Creatinine Estim Creat Clear Calc Est GFR (MDRD) Af Amer Est GFR (MDRD) Non-Af BUN/Creatinine Ratio Glucose Lactic Acid Calcium Total Bilirubin 3.30 H Direct Bilirubin 2.22 H AST 150 H ALT 142 H Alkaline Phosphatase 161 H Total Protein 7.3 Albumin 2.9 L Globulin 4.4 H Clinical Impression(s) from Imaging Studies Abdomen/Pelvis CT 05/17/18 18:54 IMPRESSION: Mild biliary prominence. Mild colonic diverticulosis. Nonobstructive right renal stone. No hydronephrosis. Electronically Signed: Cayden Barakat DO at 21:44 EDT Tel [phone], Service support , Assessment/Plan All Active Problems (Last Reviewed 05/17/18 @ 23:56 by Ananth Bassett MD) Abdominal pain (Acute) Choledocholithiasis (Acute) Transaminitis (Acute) Obstructive jaundice (Acute) CAP (community acquired pneumonia) (Resolved) Abdominal hernia (Resolved) History of bowel resection (Resolved) History of cholecystectomy (Resolved) History of appendectomy (Resolved) Acute bronchitis (Resolved) 62-year-old male with obstructive jaundice 1. Patient was admitted last night with right upper quadrant pain and elevated LFTs. His CT scan did show some mild biliary dilation. This morning the patient's LFTs have gone up. The patient reports sharp pain in his right upper quadrant that started 2 days ago. He says this was sudden onset and he felt similar pain one year ago when he had pancreatitis. 2. I explained that it is possible that the patient is developing primary stones in the common bile duct and causing obstruction. At this time the patient does not have pancreatitis. There is also possibility of stricture or mass in the common bile duct. As the patient's LFTs have gone up and he is having right upper quadrant pain I believe this is an acute obstruction and I recommend ERCP. If the patient does have stones I will attempt stone removal but if there is no stone I will place a stent for relief of the obstruction and order an MRCP to better delineate if there is an obstructive mass but there was no mass seen on CT. 3. I explained ERCP to the patient in detail. I explained the risks of the procedure including but not limited to bleeding, infection, heart attack or stroke, perforation of the bile duct or bowels, pancreatitis. I explained that if I did not find a stone I would place a stent in order an MRI to delineate any possible mass. The patient understands the risks of the procedure and is willing to proceed. 4. Patient is n.p.o. Hold heparin until procedure is over. Continue pain medication and IV fluids. Jamel Maya MD Pager: [facility] [address] [place] [address] [address] [place] [address] Office:
--- NOTE | 2018-05-18 08:53 | CON.PCM_ITS ---
Problem List (1) Obstructive jaundice Status: Acute Reason for Consult Date of Consultation: 05/18/18 History of Present Illness: The patient is a 62 year old M who presented with right upper quadrant pain radiating to the back. The patient is also having nausea vomiting. The patient has had pain since Tuesday. He says that it is similar to when he had pancreatitis a year ago. Patient reports he had cholecystectomy 8 years ago. He says that he has not had any other issues. He has a chronic right lower quadrant pain that he says is from his Crohn's. Past Medical History Past Medical History (Chronic Problems): Chronic Problems (Last Reviewed 05/17/18 @ 23:56 by Ananth Bassett MD) Gynecomazia (Chronic) Chronic pancreatitis (Chronic) Crohn's disease of small intestine (Chronic) Dyslipidemia (Chronic) Medical History: Medical History (Last Reviewed 05/17/18 @ 23:56 by Ananth Bassett MD) Gynecomazia (Chronic) N62 Acute bronchitis (Resolved) J20.9 Chronic pancreatitis (Chronic) K86.1 Crohn's disease of small intestine (Chronic) K50.00 Dyslipidemia (Chronic) E78.5 Allergies No Known Allergies Allergy (Verified 05/17/18 18:26) Home Medications: Ambulatory Orders Medication Instructions Recorded Adalimumab [Humira] 20 mg SQ Q14D 01/10/14 Omeprazole [Prilosec] 40 mg PO DAILY 01/10/14 Cholestyramine (with Sugar) 1 dose PO QHS 12/16/17 [Cholestyramine Powder] Lipase/Protease/Amylase [Creon Dr 1 cap PO TID PRN 12/16/17 36,000 Units Capsule] Albuterol Inhaler [Ventolin Hfa] 1 puff INHALATION Q4H PRN PRN #1 12/20/17 inhaler albuterol sulfate HFA 90 2 puff INHALATION Q6H PRN #1 device 04/12/18 mcg/actuation aerosol inhaler Surgical History: Surgical History (Last Reviewed 05/17/18 @ 23:56 by Ananth Bassett MD) Abdominal hernia (Resolved) K46.9 History of bowel resection (Resolved) Z98.890, Z90.49 History of cholecystectomy (Resolved) Z90.49 History of appendectomy (Resolved) Z90.49 Surgical History: - - Bowel resection, appendectomy, cholecystectomy, ventral hernia repair, right fifth toe resection. Psychiatric History: No pertinent psych hx Lives: Spouse/ Significant Other Smoking Status: Never smoker Alcohol: None - *Family History Maternal History Items: No pertinent history Paternal History Items: - - Father with a history of lung cancer and concurrent tobacco use. Review of Systems Constitutional: Denies: Fever HEENT: Denies: Difficulty Swallowing Cardiovascular: Denies: Chest Pain Respiratory: Denies: Shortness of Breath Gastrointestinal: Reports: Abdominal Pain, Nausea, Vomiting. Denies: Diarrhea, Hematochezia Genitourinary: Denies: Frequency Musculoskeletal: Denies: Joint Tenderness Skin: Reports: Jaundice Neurological: Denies: Difficulty swallowing Hematologic/ Lymphatic: Denies: Anemia Patient Problems: Active and Suspected Problems (Last Reviewed 05/17/18 @ 23:56 by Ananth Bassett MD) Abdominal pain (Acute) Choledocholithiasis (Acute) Transaminitis (Acute) Obstructive jaundice (Acute) - Physical Exam General: Alert, Oriented x3, Cooperative HEENT: Atraumatic Neck: Supple Lungs: Normal air movement Cardiovascular: Regular rate, Regular Rhythm Abdomen: Soft, Non-Distended, Tender - Tender in the right upper quadrant and right lower quadrant. More so in the right upper quadrant. No guarding. Skin: No rashes Musculoskeletal: No Muscle Wasting Neurological: Cranial nerves II-XII grossly intact Psych/Mental Status: Normal Affect Vital Signs Temp Pulse Resp BP Pulse Ox 97.1 F L 64 20 H 151/83 H 95 05/18/18 05:30 05/18/18 05:30 05/18/18 05:30 05/18/18 05:30 05/18/18 06:55 Oxygen Delivery Method Room Air Weight: 250 lb 7.122 oz Body Mass Index (BMI) 34.9 Intake and Output for Last 24 Hours 05/16/18 05/17/18 05/18/18 23:59 23:59 23:59 Intake Total 22.4 / 22.4 550 / 550 Output Total 1050 / 1050 Balance 22.4 / 22.4 -500 / -500 Laboratory Tests Past 24 Hrs 05/17/18 05/18/18 05/18/18 23:05 05:50 05:50 WBC 8.6 RBC 4.66 Hgb 14.5 Hct 42.3 MCV 90.8 MCH 31.1 MCHC 34.3 RDW 13.1 RDW Differential 43.3 Plt Count 260 MPV 9.2 Immature Gran % (Auto) 0.300 Neut % (Auto) 57.5 Lymph % (Auto) 23.9 [place] % (Auto) 16.3 H Eos % (Auto) 1.4 Baso % (Auto) 0.6 Absolute Neuts (auto) 5.0 Absolute Lymphs (auto) 2.06 Total Counted Not Reportable Sodium 135 L Potassium 4.0 Chloride 102 Carbon Dioxide 26.0 Anion Gap 7 BUN 12 Creatinine 0.84 Estim Creat Clear Calc 94.62 Est GFR (MDRD) Af Amer 118 Est GFR (MDRD) Non-Af 97 BUN/Creatinine Ratio 14.3 Glucose 111 H Lactic Acid 1.2 Calcium 8.5 Total Bilirubin Direct Bilirubin AST ALT Alkaline Phosphatase Total Protein Albumin Globulin 05/18/18 05:50 WBC RBC Hgb Hct MCV MCH MCHC RDW RDW Differential Plt Count MPV Immature Gran % (Auto) Neut % (Auto) Lymph % (Auto) [place] % (Auto) Eos % (Auto) Baso % (Auto) Absolute Neuts (auto) Absolute Lymphs (auto) Total Counted Sodium Potassium Chloride Carbon Dioxide Anion Gap BUN Creatinine Estim Creat Clear Calc Est GFR (MDRD) Af Amer Est GFR (MDRD) Non-Af BUN/Creatinine Ratio Glucose Lactic Acid Calcium Total Bilirubin 3.30 H Direct Bilirubin 2.22 H AST 150 H ALT 142 H Alkaline Phosphatase 161 H Total Protein 7.3 Albumin 2.9 L Globulin 4.4 H Clinical Impression(s) from Imaging Studies Abdomen/Pelvis CT 05/17/18 18:54 IMPRESSION: Mild biliary prominence. Mild colonic diverticulosis. Nonobstructive right renal stone. No hydronephrosis. Electronically Signed: Cayden Barakat DO at 21:44 EDT Tel [phone], Service support , Assessment/Plan All Active Problems (Last Reviewed 05/17/18 @ 23:56 by Ananth Bassett MD) Abdominal pain (Acute) Choledocholithiasis (Acute) Transaminitis (Acute) Obstructive jaundice (Acute) CAP (community acquired pneumonia) (Resolved) Abdominal hernia (Resolved) History of bowel resection (Resolved) History of cholecystectomy (Resolved) History of appendectomy (Resolved) Acute bronchitis (Resolved) 62-year-old male with obstructive jaundice 1. Patient was admitted last night with right upper quadrant pain and elevated LFTs. His CT scan did show some mild biliary dilation. This morning the patient's LFTs have gone up. The patient reports sharp pain in his right upper quadrant that started 2 days ago. He says this was sudden onset and he felt similar pain one year ago when he had pancreatitis. 2. I explained that it is possible that the patient is developing primary stones in the common bile duct and causing obstruction. At this time the patient does not have pancreatitis. There is also possibility of stricture or mass in the common bile duct. As the patient's LFTs have gone up and he is having right upper quadrant pain I believe this is an acute obstruction and I recommend ERCP. If the patient does have stones I will attempt stone removal but if there is no stone I will place a stent for relief of the obstruction and order an MRCP to better delineate if there is an obstructive mass but there was no mass seen on CT. 3. I explained ERCP to the patient in detail. I explained the risks of the procedure including but not limited to bleeding, infection, heart attack or stroke, perforation of the bile duct or bowels, pancreatitis. I explained that if I did not find a stone I would place a stent in order an MRI to delineate any possible mass. The patient understands the risks of the procedure and is willing to proceed. 4. Patient is n.p.o. Hold heparin until procedure is over. Continue pain medication and IV fluids. Jamel Maya MD Pager: [facility] [address] [place] [address] [address] [place] [address] Office:
--- NOTE | 2018-05-18 09:33 | PN_ITS ---
Patient Problems: Active and Suspected Problems (Last Reviewed 05/17/18 @ 23:56 by Ananth Bassett MD) Abdominal pain (Acute) Choledocholithiasis (Acute) Transaminitis (Acute) Obstructive jaundice (Acute) Subjective: Patient is a 62 year old gentleman with past medical history cigar for Crohn's disease, previous surgical history of appendectomy bowel surgery as well as cholecystectomy who presented with abdominal pain associated with nausea vomiting. Patient was found to have elevated transaminases as well as LFTs. Consultation was placed to Dr. Maya with general surgery and patient admitted to regular nursing floor Objective: GENERAL: Appears to be in some distress HEENT: Clear conjunctiva, moist oral mucosa NECK; supple, normal thyroid, no distended JVD. CHEST: Diminished to auscultation bilaterally, HEART: Regular S1 S2, no audible murmurs ABDOMEN: Epigastric tenderness RECTAL: deferred EXTREMITIES: No edema, no clubbing, no cyanosis. MOLD RUNNER: Awake; no lateralizing signs. SKIN: No Rash Vitals/I&O's: Vital Signs Temp Pulse Resp BP Pulse Ox 97.1 F L 64 20 H 151/83 H 95 05/18/18 05:30 05/18/18 05:30 05/18/18 05:30 05/18/18 05:30 05/18/18 06:55 Oxygen Delivery Method Room Air Weight: 113.6 kg Body Mass Index (BMI) 34.9 Intake and Output for Last 24 Hours 05/16/18 05/17/18 05/18/18 23:59 23:59 23:59 Intake Total 22.4 / 22.4 550 / 550 Output Total 1050 / 1050 Balance 22.4 / 22.4 -500 / -500 Laboratory Results 05/17/18 23:05: Lactic Acid 1.2 05/18/18 05:50: WBC 8.6, RBC 4.66, Hgb 14.5, Hct 42.3, MCV 90.8, MCH 31.1, MCHC 34.3, RDW 13.1, RDW Differential 43.3, Plt Count 260, MPV 9.2, Immature Gran % ( Auto) 0.300, Neut % (Auto) 57.5, Lymph % (Auto) 23.9, [place] % (Auto) 16.3 H, Eos % (Auto) 1.4, Baso % (Auto) 0.6, Absolute Neuts (auto) 5.0, Absolute Lymphs ( auto) 2.06, Total Counted Not Reportable 05/18/18 05:50: Sodium 135 L, Potassium 4.0, Chloride 102, Carbon Dioxide 26.0, Anion Gap 7, BUN 12, Creatinine 0.84, Estim Creat Clear Calc 94.62, Est GFR ( MDRD) Af Amer 118, Est GFR (MDRD) Non-Af 97, BUN/Creatinine Ratio 14.3, Glucose 111 H, Calcium 8.5 05/18/18 05:50: Total Bilirubin 3.30 H, Direct Bilirubin 2.22 H, AST 150 H, ALT 142 H, Alkaline Phosphatase 161 H, Total Protein 7.3, Albumin 2.9 L, Globulin 4.4 H Current Medications Albuterol Sulfate (Ventolin Aerosols) 2.5 mg INHALATION Q4H PRN PRN PRN Reason: shortness of breath or wheezing Cholestyramine Resin (Questran 4gm Packet) 4 gm PO .1HR,4 HR OTHER MEDS [facility] Heparin Sodium (Porcine) (Heparin Na) 5,000 unit SC Q8 [facility] Last Admin: 05/18/18 05:41 Dose: Not Given Hydromorphone HCl (Dilaudid Inj) 0.5 mg IV Q2H PRN PRN PRN Reason: SEVERE PAIN (6-10/10) Last Admin: 05/18/18 09:01 Dose: 0.5 mg Lactated Ringer's () 1,000 mls @ 100 mls/hr IV .Q10H [facility] Stop: 05/18/18 19:30 Last Admin: 05/18/18 08:04 Dose: 100 mls/hr Magnesium Hydroxide (Milk Of Magnesia) 30 ml PO DAILY PRN PRN PRN Reason: Constipation Ondansetron HCl (Zofran) 4 mg IV Q6H PRN PRN PRN Reason: NAUSEA/VOMITING Last Admin: 05/18/18 08:04 Dose: 4 mg Pantoprazole Sodium (Protonix) 40 mg PO DAILY [facility] Last Admin: 05/18/18 08:04 Dose: 40 mg Sodium Chloride () 5 - 30 ml IV UD PRN PRN Reason: SALINE FLUSH Last Admin: 05/18/18 06:16 Dose: 10 ml Medical Necessity - Tobacco Use Smoking Status: Never smoker Assessment/Plan All Active Problems (Last Reviewed 05/17/18 @ 23:56 by Ananth Bassett MD) Abdominal pain (Acute) Choledocholithiasis (Acute) Transaminitis (Acute) Obstructive jaundice (Acute) CAP (community acquired pneumonia) (Resolved) Abdominal hernia (Resolved) History of bowel resection (Resolved) History of cholecystectomy (Resolved) History of appendectomy (Resolved) Acute bronchitis (Resolved) Patient is a 62 year old gentleman with past medical history cigar for Crohn's disease, previous surgical history of appendectomy bowel surgery as well as cholecystectomy who presented with abdominal pain associated with nausea vomiting. Patient was found to have elevated transaminases as well as LFTs. Consultation was placed to Dr. Maya with general surgery and patient admitted to regular nursing floor 1. Abdominal pain secondary to probable choledocholithiasis (primary). Patient has been admitted to regular nursing floor currently being managed conservatively with supportive care IV fluids antiemetics IV pain medication. Consultation was placed to Dr. Maya with general surgery and plans for patient undergo ERCP 2. Crohn's disease stable patient is on adalimumab every 14 days. Next Dose due on 05/21/2018 3. Mild intermittent bronchial asthma currently stable 4. Morbid obesity with BMI of 34.9; lifestyle modification advised 5. DVT prophylaxis SC heparin Code Visit Inpatient E&M: 42899 [facility] Hosp L3
--- NOTE | 2018-05-18 10:05 | CASEMGMT ---
SEE RN CM ASSESS LINK: D/C PLAN: HOME Intro role to RN CM. Pt resting in bed, awake/alert. States is independent @ home, requires no DME, and denies any discharge needs. CM to follow for any discharge planning needs that may arise. Eric BSN RN CM
--- NOTE | 2018-05-18 11:15 | RAD_ITS ---
STUDY: ERCP. REASON FOR EXAM: Male, 62 years old. Dilated intrahepatic ducts. FLUOROSCOPY TIME (if supplied): (3:42) minutes/seconds TECHNIQUE: Imaging was provided for the referring physician for the ERCP. Contrast was injected into the common bile duct. COMPARISON: None. FINDINGS: There is dilatation of the visualized central intrahepatic biliary ducts. A balloon catheter is seen within the common bile duct. On the subsequent images, there is flow of contrast into the duodenum. RAD/ERCP Biliary Only IMPRESSION: Mildly dilated central intrahepatic biliary ducts and common bile duct with balloon sweep of the common bile duct. There is free flow of contrast into the duodenum. Electronically Signed: Ike Metcalf MD at 13:24 EDT Tel [phone], Service support ,
--- NOTE | 2018-05-18 13:01 | OP.PCM_ITS ---
Problem List (1) Obstructive jaundice Status: Acute Report of Operation Date of Procedure: 05/18/18 Pre-Operative Diagnosis: Obstructive jaundice Post-Operative Diagnosis: Same Surgery/Procedure Performed:: ERCP with sphincterotomy and stent placement Description of Surgical Findings:: The patient had obstruction of his bile duct. The bile duct was cannulated and there were no stones or sludge in the common bile duct. Clear bile was returned after sphincterotomy. The patient did have a tightening in the distal common bile duct. A stent was placed. Description of Procedure: After describing the risks of the procedure as well as the procedure in detail informed consent was obtained. Patient was brought to the operating room and general anesthesia was induced. The patient was then placed in a semi-prone position. Next, the side-viewing endoscope was placed into the mouth and down into the stomach and advanced into the duodenum. The ampulla was located. A sphincterotome was used to cannulate the common bile duct but the pancreatic duct was cannulated and a dual wire technique was used to cannulate the common bile duct. The guidewire was placed in the common bile duct and using sphincterotome and electrocautery a sphincterotomy was performed. Hemostasis was good. Next the sphincterotome was removed leaving the guidewire in the common bile duct. Clear bile was coming from the common bile duct atrophy durotomy with no sludge or stones. A balloon was then introduced over the guidewire and the common bile duct and several sweeps were performed. No stones or sludge were removed from the common bile duct. There appeared to be a tight area in the distal common bile duct. I decided to place a stent and workup the tightened area at a later date. A 7 [place] 5 cm stent was placed in the common bile duct and deployed. Position was recorded with fluoroscopy. The side-viewing scope was then withdrawn back into the stomach and the stomach was suctioned. Next, the scope was removed. The patient was taken to PACU in stable condition. The patient tolerated the procedure well.
--- NOTE | 2018-05-18 13:04 | PN_ITS ---
Progress Note I performed an ERCP and the patient and there was a tightened area in the distal common bile duct. It is possible that this is a stricture but a malignancy cannot be ruled out based on this ERCP. After discussing with a biliary surgeon he recommends doing ERCP with spyglass to visualize distal common bile duct and take biopsies if necessary. I will arrange for outpatient follow-up ERCP with spyglass biopsy. Once the patient is tolerating regular diet he may be discharged and follow-up with me to arrange this ERCP. Jamel Maya MD Pager: [facility] [address] [place] [address] [address] [place] [address] Office:
--- NOTE | 2018-05-18 16:18 | PCM.DC ---
- Discharge Diagnoses Current Active Problems: Current Active and Chronic Problems (Last Reviewed 05/17/18 @ 23:56 by Ananth Bassett MD) Abdominal pain (Acute) Choledocholithiasis (Acute) Transaminitis (Acute) Obstructive jaundice (Acute) You will use the following diet at home:: No restrictions Allergies/Adverse Reactions: Allergies No Known Allergies Allergy (Verified 05/17/18 18:26) Medications to take at Discharge Adalimumab [Humira] 20 mg SQ Q14D 01/10/14 Omeprazole [Prilosec] 40 mg PO DAILY 01/10/14 Cholestyramine (with Sugar) [Cholestyramine Powder] 1 dose PO QHS 12/16/17 Lipase/Protease/Amylase [Creon Dr 36,000 Units Capsule] 1 cap PO TID PRN 12/16/17 Albuterol Inhaler [Ventolin Hfa] 1 puff INHALATION Q4H PRN PRN #1 inhaler 12/20/17 albuterol sulfate HFA 90 mcg/actuation aerosol inhaler 2 puff INHALATION Q6H PRN #1 device 04/12/18 Primary Care Physician: Shante Castro MD [Primary Care Provider] - Please follow up with your Primary Care Physician in: in 5-7 days Test Results: Test results from this visit will be discussed in further detail at your follow-up appointment, if applicable. Proposed Discharge Date: 05/18/18
--- NOTE | 2018-05-18 16:20 | PCM.DC.SUM ---
Discharge Date and Diagnosis - Problem List Patient Problems: Active and Suspected Problems (Last Reviewed 05/17/18 @ 23:56 by Ananth Bassett MD) Abdominal pain (Acute) Choledocholithiasis (Acute) Transaminitis (Acute) Obstructive jaundice (Acute) Date of Admission: 05/17/18 Date of Discharge: 05/18/18 - Primary Discharge Diagnosis Active and Suspected Problems (Last Reviewed 05/17/18 @ 23:56 by Ananth Bassett MD) Abdominal pain (Acute) Choledocholithiasis (Acute) Transaminitis (Acute) Obstructive jaundice (Acute) - Secondary Discharge Diagnosis Chronic Problems (Last Reviewed 05/17/18 @ 23:56 by Ananth Bassett MD) Gynecomazia (Chronic) Chronic pancreatitis (Chronic) Crohn's disease of small intestine (Chronic) Dyslipidemia (Chronic) Hospital Course and Treatment Imaging Results: Clinical Impression(s) from Imaging Studies Abdomen/Pelvis CT 05/17/18 18:54 IMPRESSION: Mild biliary prominence. Mild colonic diverticulosis. Nonobstructive right renal stone. No hydronephrosis. Electronically Signed: Cayden Barakat DO at 21:44 EDT Tel [phone], Service support , ERCP X-Ray 05/18/18 11:15 IMPRESSION: Mildly dilated central intrahepatic biliary ducts and common bile duct with balloon sweep of the common bile duct. There is free flow of contrast into the duodenum. Electronically Signed: Ike Metcalf MD at 13:24 EDT Tel [phone], Service support , Operations: ERCP, - Summary of Care Provided: Patient is a 62 year old gentleman with past medical history cigar for Crohn's disease, previous surgical history of appendectomy bowel surgery as well as cholecystectomy who presented with abdominal pain associated with nausea vomiting. Patient was found to have elevated transaminases as well as LFTs. Consultation was placed to Dr. Maya with general surgery and patient admitted to regular nursing floor 1. Abdominal pain secondary to probable choledocholithiasis (primary). Patient has been admitted to regular nursing floor currently being managed conservatively with supportive care IV fluids antiemetics IV pain medication. Consultation was placed to Dr. Maya with general surgery who did perform an ERCP with sphincterotomy and stent placement on 05/18/2018. Plan was for patient to have been observed for at least 2 midnights however he did insist on being discharged following this procedure which had been okayed by his general surgeon. Patient was therefore discharged and instructed to follow-up with Dr. Maya as well as his primary care physician for subsequent management. 2. Crohn's disease stable patient is on adalimumab every 14 days. Next Dose due on 05/21/2018 3. Mild intermittent bronchial asthma currently stable 4. Morbid obesity with BMI of 34.9; lifestyle modification advised 5. DVT prophylaxis SC heparin Home Medications: Medications to take at Discharge Adalimumab [Humira] 20 mg SQ Q14D 01/10/14 Omeprazole [Prilosec] 40 mg PO DAILY 01/10/14 Cholestyramine (with Sugar) [Cholestyramine Powder] 1 dose PO QHS 12/16/17 Lipase/Protease/Amylase [Creon Dr 36,000 Units Capsule] 1 cap PO TID PRN 12/16/17 Albuterol Inhaler [Ventolin Hfa] 1 puff INHALATION Q4H PRN PRN #1 inhaler 12/20/17 albuterol sulfate HFA 90 mcg/actuation aerosol inhaler 2 puff INHALATION Q6H PRN #1 device 04/12/18 Primary Care Physician: Shante Castro MD [Primary Care Provider] - Please follow up with your Primary Care Physician in: in 5-7 days Medical Necessity - Tobacco Use Smoking Status: Never smoker Meaningful Use Info Meaningful Use Diagnoses (Choose all that apply): None applicable Code Visit Inpatient E&M: 39799 [facility]osp
[2018-05-18] MEDS: Heparin Injection (Vial) 5,000 UNIT/ML VIAL 5000 UNIT SC (20:57)
[2018-05-19 02:41] VITALS: BP 122/76; PULSE 73; RESP 18; TEMP 36.6; O2SAT 98
[2018-05-19] MEDS: Heparin Injection (Vial) 5,000 UNIT/ML VIAL 5000 UNIT SC (05:53)
[2018-05-19 07:07] LABS: Absolute Lymphocyte Count 1.83 X10^3/ul (0.83-4.51); Absolute Neutrophil Count 14.8 X10^3/uL (2.0-7.7); Basophil# 0.01 X10^3/uL; Basophil% 0.1 % (0-1); Hematocrit 43.1 % (40-54); Hemoglobin 14.6 g/dl (13.0-16.5); Lymphocyte # 1.83 X10^3/ul (4.0); Lymphocyte % 10.1 % (19-41); Mean Corp Hgb Conc 33.9 g/gl (32-36); Mean Corpuscular Hgb 30.8 pg (27.0-32.0); Mean Corpuscular Volume 90.9 fL (80-94); Monocyte# 1.39 X10^3/uL; Monocyte% 7.7 % (0-10); Neutrophil # 14.76 X10^3/uL (2.7-7.7); Neutrophil % 81.9 % (47-70); Platelet Count 263 K/mm3 (150-450); RBC Distribution Width CV 13.2 % (11.6-14.6); RBC Distribution Width SD 43.9 fl (35.1-43.9); Red Blood Count 4.74 M/mm3 (4.6-6.2)
[2018-05-19 07:11] LABS: POSITIVE COUNT NO; POSITIVE DIFFERENTIAL NO; POSITIVE MORPHOLOGY NO
[2018-05-19 07:37] LABS: ALB/GLOB Ratio 0.6 RATIO (0.9-2.4); AST(SGOT) 77 U/L (15-37); Alanine Aminotransfer ALT/SGPT 125 U/L (16-61); Alkaline Phosphatase 174 U/L (45-117); Anion Gap 9 (5-15); BUN 20 mg/dL (7-18); BUN/Creat Ratio 21.9 RATIO (10-20); Calcium,Total 9.2 mg/dL (8.5-10.1); Chloride 103 mmol/L (98-107); Creatinine, Serum 0.92 mg/dL (0.70-1.30); EST Glomerular Filtration Rate 88 mL/min (>60); Est Glom Filt Rate - Afr Amer 107 mL/min (>60); Estimated Creatinine Clearance 86.39 ml/min; Globulin 4.9 g/dL (2.2-4.2); Glucose 120 mg/dL (74-106); Potassium 4.1 mmol/L (3.5-5.1); Protein, Total 7.9 g/dL (6.4-8.2); Sodium Level 137 mmol/L (136-145)
[2018-05-19 07:40] VITALS: O2SAT 94
[2018-05-19 07:54] VITALS: BP 144/86; PULSE 64; RESP 18; TEMP 36.9; O2SAT 96
[2018-05-19] MEDS: Pantoprazole Sodium 40 MG Tablet PO (07:55)
[2018-05-19 10:12] LABS: Pathologist Review Reviewed
--- NOTE | 2018-05-19 11:17 | PCM.DC.SUM ---
Discharge Date and Diagnosis Date of Admission: 05/17/18 Date of Discharge: 05/19/18 - Primary Discharge Diagnosis Active and Suspected Problems (Last Reviewed 05/17/18 @ 23:56 by Ananth Bassett MD) Abdominal pain secondary to probable choledocholithiasis (primary). 2. Crohn's disease, chronic disease - Secondary Discharge Diagnosis Chronic Problems (Last Reviewed 05/17/18 @ 23:56 by Ananth Bassett MD) Gynecomazia (Chronic) Chronic pancreatitis (Chronic) Crohn's disease of small intestine (Chronic) Dyslipidemia (Chronic) Hospital Course and Treatment Operations: ERCP, - Summary of Care Provided: The patient is a 62 year old gentleman with past medical history cigar for Crohn's disease, previous surgical history of appendectomy bowel surgery as well as cholecystectomy who presented with abdominal pain associated with nausea vomiting. Patient was found to have elevated transaminases as well as LFTs. Consultation was placed to Dr. Maya with general surgery and patient admitted to regular nursing floor 1. Abdominal pain secondary to probable choledocholithiasis (primary). Patient has been admitted to regular nursing floor currently being managed conservatively with supportive care IV fluids antiemetics IV pain medication. Consultation was placed to Dr. Maya with general surgery who did perform an ERCP with sphincterotomy and stent placement on 05/18/2018. Plan was for patient to have been observed for at least 2 midnights but he insisted to discharge yesterday but later on he agreed to stay overnight. Patient is clinically stable to be discharged home. No pain abdomen. The patient is instructed to follow-up with Dr. Maya as well as his primary care physician for subsequent management. 2. Crohn's disease stable patient is on adalimumab every 14 days. Next Dose due on 05/21/2018. Patient has chronic diarrhea secondary to Crohn's disease which is semisolid to liquid in consistency. He is on cholestyramine too. 3. Mild intermittent bronchial asthma currently stable 4. Morbid obesity with BMI of 34.9; lifestyle modification advised 5. DVT prophylaxis SC heparin Home Medications: Medications to take at Discharge Adalimumab [Humira] 20 mg SQ Q14D 01/10/14 Omeprazole [Prilosec] 40 mg PO DAILY 01/10/14 Cholestyramine (with Sugar) [Cholestyramine Powder] 1 dose PO QHS 12/16/17 Lipase/Protease/Amylase [Creon Dr 36,000 Units Capsule] 1 cap PO TID PRN 12/16/17 Albuterol Inhaler [Ventolin Hfa] 1 puff INHALATION Q4H PRN PRN #1 inhaler 12/20/17 albuterol sulfate HFA 90 mcg/actuation aerosol inhaler 2 puff INHALATION Q6H PRN #1 device 04/12/18 Primary Care Physician: Shante Castro MD [Primary Care Provider] - Please follow up with your Primary Care Physician in: in 5-7 days Medical Necessity - Tobacco Use Smoking Status: Never smoker Meaningful Use Info Meaningful Use Diagnoses (Choose all that apply): None applicable Code Visit Inpatient E&M: 38786 [facility] Hosp
--- NOTE | 2018-05-19 12:22 | DS.PCM_ITS ---
Discharge Date and Diagnosis Date of Admission: 05/17/18 Date of Discharge: 05/19/18 - Primary Discharge Diagnosis Active and Suspected Problems (Last Reviewed 05/17/18 @ 23:56 by Ananth Bassett MD) Abdominal pain secondary to probable choledocholithiasis (primary). 2. Crohn's disease, chronic disease - Secondary Discharge Diagnosis Chronic Problems (Last Reviewed 05/17/18 @ 23:56 by Ananth Bassett MD) Gynecomazia (Chronic) Chronic pancreatitis (Chronic) Crohn's disease of small intestine (Chronic) Dyslipidemia (Chronic) Hospital Course and Treatment Operations: ERCP, - Summary of Care Provided: The patient is a 62 year old gentleman with past medical history cigar for Crohn 's disease, previous surgical history of appendectomy bowel surgery as well as cholecystectomy who presented with abdominal pain associated with nausea vomiting. Patient was found to have elevated transaminases as well as LFTs. Consultation was placed to Dr. Maya with general surgery and patient admitted to regular nursing floor 1. Abdominal pain secondary to probable choledocholithiasis (primary). Patient has been admitted to regular nursing floor currently being managed conservatively with supportive care IV fluids antiemetics IV pain medication. Consultation was placed to Dr. Maya with general surgery who did perform an ERCP with sphincterotomy and stent placement on 05/18/2018. Plan was for patient to have been observed for at least 2 midnights but he insisted to discharge yesterday but later on he agreed to stay overnight. Patient is clinically stable to be discharged home. No pain abdomen. The patient is instructed to follow-up with Dr. Maya as well as his primary care physician for subsequent management. 2. Crohn's disease stable patient is on adalimumab every 14 days. Next Dose due on 05/21/2018. Patient has chronic diarrhea secondary to Crohn's disease which is semisolid to liquid in consistency. He is on cholestyramine too. 3. Mild intermittent bronchial asthma currently stable 4. Morbid obesity with BMI of 34.9; lifestyle modification advised 5. DVT prophylaxis SC heparin Home Medications: Medications to take at Discharge Adalimumab [Humira] 20 mg SQ Q14D 01/10/14 Omeprazole [Prilosec] 40 mg PO DAILY 01/10/14 Cholestyramine (with Sugar) [Cholestyramine Powder] 1 dose PO QHS 12/16/17 Lipase/Protease/Amylase [Creon Dr 36,000 Units Capsule] 1 cap PO TID PRN Albuterol Inhaler [Ventolin Hfa] 1 puff INHALATION Q4H PRN PRN #1 inhaler albuterol sulfate HFA 90 mcg/actuation aerosol inhaler 2 puff INHALATION Q6H PRN #1 device 04/12/18 Primary Care Physician: Shante Castro MD [Primary Care Provider] - Please follow up with your Primary Care Physician in: in 5-7 days Medical Necessity - Tobacco Use Smoking Status: Never smoker Meaningful Use Info Meaningful Use Diagnoses (Choose all that apply): None applicable Code Visit Inpatient E&M: 61938 [facility] Hosp
== END 2018-05-19 12:23 | disposition home or self-care (01) | DRG 445 ==
LOC: ED 22:51 → MS3 23:03
PROVIDERS: Surgery; Admitting Provider Hospitalist; Emergency Provider Emergency Medicine; Family Provider Internal Medicine; PCP Internal Medicine; Visit Provider Internal Medicine
PROC: 0F798DZ Dilation of Common Bile Duct with Intraluminal Device, Via Natural or Artificial Opening Endoscopic (ICD-10-PCS; CPT 43260; principal; 2018-05-18 10:30)
DX: K80.51 Calculus of bile duct without cholangitis or cholecystitis with obstruction (principal); K50.00 Crohn's disease of small intestine without complications; K86.1 Other chronic pancreatitis; E78.5 Hyperlipidemia, unspecified; Z90.49 Acquired absence of other specified parts of digestive tract; E66.01 Morbid (severe) obesity due to excess calories; Z68.34 Body mass index [BMI] 34.0-34.9, adult; J45.20 Mild intermittent asthma, uncomplicated
CPT/HCPCS: 36415; 74177; 74328; 76000; 80048; 80053; 80076; 81001; 83605; 83690; 85025; 99285; J7030; J7120; Q9967; A4216; C1769; J1610; J2405

== ENCOUNTER 2018-05-20 07:48 | Inpatient (IN) | payer BC, SELFPAY ==
[2018-05-20 07:49] VITALS: BP 170/98; PULSE 89; RESP 19; TEMP 36.9; O2SAT 98; BMI 34.8
--- NOTE | 2018-05-20 08:00 | CT_ITS ---
STUDY: CT ABDOMEN AND PELVIS WITH CONTRAST REASON FOR EXAM: Male, 62 years old. Lower abdominal pain. Status post bile duct stent placement. RADIATION DOSAGE (If Supplied By Facility): CTDIvol = ( 18.66 ) mGy, DLP = ( 1246.53 ) mGycm TECHNIQUE: Transaxial images were obtained from the dome of the diaphragm to the symphysis pubis with oral contrast. 100 ml of Isovue 300 contrast was administered. Sagittal and coronal images were reconstructed. Individualized dose optimization techniques were used for this CT. COMPARISON: None. FINDINGS: The visualized lung bases are unremarkable. The visualized portions of the heart are within normal limits. There is mild diffuse fatty infiltration of the liver. No focal lesion is identified. There is pneumobilia in the left lobe of the liver. There is mild dilatation of the intrahepatic biliary ducts. There is a new common bile duct stent extending to the duodenum. There is non-visualization of the gallbladder, which may be secondary to either contraction or a prior cholecystectomy. Normal spleen. The pancreas is somewhat atrophic. Normal bilateral adrenal glands. There again is a 4 mm nonobstructing stone in the lower pole of the right kidney. There is no evidence of hydronephrosis. Normal left kidney. Normal visualized stomach. The small bowel loops are normal in caliber. There is diverticulosis of the sigmoid colon. There is no evidence for acute diverticulitis. There is fecal retention. Surgical sutures are seen in the region of the ascending colon. There is non-visualization of the appendix. Normal abdominal aorta. Normal inferior vena cava. Normal retroperitoneum. Normal urinary bladder. There are surgical clips in the right anterior abdominal wall. Normal osseous structures. CT/Abdomen/Pelvis W IV Cont ONLY IMPRESSION: 1. Status post common bile duct stent placement. 2. Mild pneumobilia. 3. Nonobstructing stone in the right kidney without evidence of hydronephrosis. 4. Mild diverticulosis without evidence of acute diverticulitis. 5. Nonvisualization of the appendix. Electronically Signed: Manohar Castañeda MD at 9:43 EDT Tel , Service support ,
--- NOTE | 2018-05-20 08:02 | ED.VISSUMM ---
- ER Visit Summary Date of Service: 05/20/18 Chief Complaint: Abdominal pain History of Present Illness: The patient is a 62 M with history of Crohn's disease presents to the emergency department with diffuse upper abdominal pain. The patient was recently admitted 3 days ago due to concern for choledocholithiasis. He underwent ERCP with sphincterotomy and bile duct stenting by Dr. vaughan. He was discharged yesterday. He states that he was doing well, and then last night began to have some increasing pain. He has had multiple bouts of dry heaves. He does describe chills but denies any fevers. He describes the pain as bandlike across his upper abdomen. He does have a history of pancreatitis and states this feels similar. He denies any chest pain. He denies any shortness of breath. Physical Examination: Vital signs reviewed General: Well-nourished, well-developed Head: Normocephalic, atraumatic Eyes: Pupils equal and reactive, extraocular muscles intact Neck, supple, no lymphadenopathy Heart: Regular rate and rhythm Respiratory: No distress, clear bilaterally Abdomen: Soft, tender in the midepigastric area into the left upper quadrant, nondistended, no peritoneal signs Back: Nontender Extremities: Nontender, no edema, no cords Skin: Normal color no rash Neuro: Alert and oriented, no focal or lateralizing deficits Test Results: [] Emergency Department Course and Treatment: [The patient presents with midepigastric pain that started approximately 12 hours ago. He is recently status post ERCP. IV was established. We did have a difficult time getting blood work it was not hemolyzed. Patient was given analgesics and antiemetics and had improvement of his pain. However, his pain did return and he had to be redosed. His CT does not show any acute intra-abdominal process. There is some mild pneumobilia consistent with recent procedure. There is no evidence of obstruction. His LFTs have trended down to normal. However, he does have evidence of acute pancreatitis. At this point, given his persistent pain and symptoms I do feel that he is going to require admission. I did discuss the patient with Dr. Tolbert, who deferred to hospitalist management as this is a nonoperative process. Patient was discussed with the hospitalist. Treatment Plan: [] Disposition: Admission Impression: 1. Acute pancreatitis status post ERCP This note was generated with Dragon dictation software. It may contain incorrect words, spelling, and punctuation that were not noted in review of the chart prior to signing ED Disposition - Plan for ED Patient: Chief Complaint: Abd Pain Referrals: Shante Castro MD [Primary Care Provider] -
[2018-05-20] MEDS: 0.9% Normal Saline 1,000 ML 1000 ML IV (08:24)
[2018-05-20] MEDS: HYDROmorphone 1 MG/ML Syringe IV ×4 (08:24→16:24)
[2018-05-20] MEDS: Ondansetron 4 MG/2 ML Vial IV (08:24)
[2018-05-20 08:31] LABS: Absolute Lymphocyte Count 2.47 X10^3/ul (0.83-4.51); Absolute Neutrophil Count 10.9 X10^3/uL (2.0-7.7); Basophil# 0.06 X10^3/uL; Basophil% 0.4 % (0-1); Eosinophil# 0.04 X10^3/uL; Eosinophils% 0.3 % (0-5); Hematocrit 44.3 % (40-54); Hemoglobin 15.5 g/dl (13.0-16.5); Lymphocyte # 2.47 X10^3/ul (4.0); Lymphocyte % 16.1 % (19-41); Mean Corpuscular Hgb 31.5 pg (27.0-32.0); Mean Platelet Vol. 9.4 fl (6.2-12.0); Monocyte# 1.77 X10^3/uL; Monocyte% 11.5 % (0-10); Neutrophil # 10.89 X10^3/uL (2.7-7.7); Neutrophil % 70.9 % (47-70); Platelet Count 323 K/mm3 (150-450); RBC Distribution Width CV 13.5 % (11.6-14.6); Red Blood Count 4.92 M/mm3 (4.6-6.2); White Blood Count 15.4 K/mm3 (4.4-11.0)
[2018-05-20 08:51] LABS: Differential Indicated SCAN CRITERIA MET; POSITIVE COUNT NO; POSITIVE DIFFERENTIAL YES; POSITIVE MORPHOLOGY NO
[2018-05-20 08:53] LABS: Differential Comment SCANNED
[2018-05-20 09:30] LABS: Bacteria 0 SEEN /hpf (None Seen); Mucous, Urine 0 SEEN /hpf (<or=2+); Squamous Epithelial Cells - UA 0 SEEN /hpf (0-5)
[2018-05-20 09:33] LABS: Color, Urine Yellow (Yellow); Glucose, Dipstick Normal (Normal); Ketone-Dipstick Negative (Negative); Leukocyte Esterase-Dipstick Negative /ul (Negative); Nitrite-Dipstick Negative (Negative); Occult Blood-Urine 25 /ul (Negative); Protein-Dipstick Negative (Negative); Urine Bilirubin Dipstick Negative (Negative); Urine Clarity Clear (Clear); Urine Urobilinogen Normal (Normal)
[2018-05-20 09:51] LABS: Red Blood Cells-Urine 0-5 SEEN /hpf (0-5); White Blood Cells 0-5 SEEN /hpf (0-5)
[2018-05-20 09:55] LABS: ALB/GLOB Ratio 0.8 RATIO (0.9-2.4); AST(SGOT) 39 U/L (15-37); Alanine Aminotransfer ALT/SGPT 86 U/L (16-61); Albumin, Serum 3.2 g/dL (3.2-5.0); Alkaline Phosphatase 159 U/L (45-117); Anion Gap 12 (5-15); BUN 25 mg/dL (7-18); BUN/Creat Ratio 29.4 RATIO (10-20); Calcium,Total 8.5 mg/dL (8.5-10.1); Chloride 100 mmol/L (98-107); Creatinine, Serum 0.85 mg/dL (0.70-1.30); EST Glomerular Filtration Rate 96 mL/min (>60); Est Glom Filt Rate - Afr Amer 117 mL/min (>60); Estimated Creatinine Clearance 93.51 ml/min; Glucose 110 mg/dL (74-106); Lipase 1700 U/L (73-393); Potassium 3.7 mmol/L (3.5-5.1); Protein, Total 7.2 g/dL (6.4-8.2); Sodium Level 138 mmol/L (136-145)
[2018-05-20] MEDS: 0.9% Normal Saline 1,000 ML 999 ML IV (10:14)
--- NOTE | 2018-05-20 10:45 | CON.PCM_ITS ---
Problem List (1) Idiopathic pancreatitis Status: Acute Qualifiers: Chronicity: acute Acute pancreatitis complication: no infection or necrosis Qualified Code(s): K85.00 - Idiopathic acute pancreatitis without necrosis or infection Reason for Consult Date of Consultation: 05/20/18 History of Present Illness: The patient is a 62 M with history of Crohn's disease presents to the emergency department with diffuse upper abdominal pain. The patient was recently admitted 3 days ago due to concern for choledocholithiasis. He underwent ERCP with sphincterotomy and bile duct stenting by Dr. Maya. He was discharged yesterday. He states that he was doing well, and then last night began to have some increasing pain. He has had multiple bouts of dry heaves. He does describe chills but denies any fevers. He describes the pain as bandlike across his upper abdomen. He does have a history of pancreatitis and states this feels similar. He denies any chest pain. He denies any shortness of breath. Past Medical History Past Medical History (Chronic Problems): Chronic Problems (Last Reviewed 05/17/18 @ 23:56 by Ananth Bassett MD) Gynecomazia (Chronic) Chronic pancreatitis (Chronic) Crohn's disease of small intestine (Chronic) Dyslipidemia (Chronic) Medical History: Medical History (Last Reviewed 05/20/18 @ 10:43 by Gaston Tolbert MD) Gynecomazia (Chronic) N62 Acute bronchitis (Resolved) J20.9 Chronic pancreatitis (Chronic) K86.1 Crohn's disease of small intestine (Chronic) K50.00 Dyslipidemia (Chronic) E78.5 Allergies No Known Allergies Allergy (Verified 05/20/18 07:49) Home Medications: Ambulatory Orders Medication Instructions Recorded Adalimumab [Humira] 40 mg SQ Q14D 01/10/14 Omeprazole [Prilosec] 40 mg PO DAILY 01/10/14 Cholestyramine (with Sugar) 1 dose PO QHS 12/16/17 [Cholestyramine Powder] Lipase/Protease/Amylase [Creon Dr 1 cap PO TID PRN 12/16/17 36,000 Units Capsule] Albuterol Inhaler [Ventolin Hfa] 1 puff INHALATION Q4H PRN PRN #1 12/20/17 inhaler albuterol sulfate HFA 90 2 puff INHALATION Q6H PRN #1 device 04/12/18 mcg/actuation aerosol inhaler Surgical History: Surgical History (Last Reviewed 05/20/18 @ 10:43 by Gaston Tolbert MD) Abdominal hernia (Resolved) K46.9 History of bowel resection (Resolved) Z98.890, Z90.49 History of cholecystectomy (Resolved) Z90.49 History of appendectomy (Resolved) Z90.49 Surgical History: - - Bowel resection, appendectomy, cholecystectomy, ventral hernia repair, right fifth toe resection. Psychiatric History: No pertinent psych hx Smoking Status: Former smoker - *Family History Maternal History Items: No pertinent history Paternal History Items: - - Father with a history of lung cancer and concurrent tobacco use. Review of Systems Constitutional: Reports: Chills, Fever Cardiovascular: Denies: Chest Pain Respiratory: Denies: Cough, Hemoptysis, Shortness of breath at rest, Shortness of breath upon exertion, Wheezing Gastrointestinal: Reports: Abdominal Pain, Nausea, Vomiting Genitourinary: Denies: Dysuria, Frequency, Hematuria, Urgency Patient Problems: Active and Suspected Problems (Last Reviewed 05/17/18 @ 23:56 by Ananth Bassett MD) Idiopathic pancreatitis (Acute) - Physical Exam General: Alert, Oriented x3, Cooperative Lungs: Clear to auscultation Cardiovascular: Regular rate, Regular Rhythm, No murmurs Abdomen: Tender - Mild tenderness in the upper abdomen. There is no rebound guarding or peritoneal signs identified. He is slightly distended. And he has hypoactive bowel sounds. Vital Signs Temp Pulse Resp BP Pulse Ox 98.4 F 89 19 H 170/98 H 98 05/20/18 07:49 05/20/18 07:49 05/20/18 07:49 05/20/18 07:49 05/20/18 07:49 Oxygen Delivery Method Room Air Weight: 250 lb Body Mass Index (BMI) 34.8 Laboratory Tests Past 24 Hrs 05/20/18 05/20/18 05/20/18 08:15 08:15 08:45 WBC 15.4 H RBC 4.92 Hgb 15.5 Hct 44.3 MCV 90.0 MCH 31.5 MCHC 35.0 RDW 13.5 RDW Differential 44.0 H Plt Count 323 MPV 9.4 Immature Gran % (Auto) 0.800 Neut % (Auto) 70.9 H Lymph % (Auto) 16.1 L [place] % (Auto) 11.5 H Eos % (Auto) 0.3 Baso % (Auto) 0.4 Absolute Neuts (auto) 10.9 H Absolute Lymphs (auto) 2.47 Total Counted Not Reportable Differential Comment SCANNED Sodium Cancelled Cancelled Potassium Cancelled Cancelled Chloride Cancelled Cancelled Carbon Dioxide Cancelled Cancelled Anion Gap Cancelled Cancelled BUN Cancelled Cancelled Creatinine Cancelled Cancelled Estim Creat Clear Calc Cancelled Cancelled Est GFR (MDRD) Af Amer Cancelled Cancelled Est GFR (MDRD) Non-Af Cancelled Cancelled BUN/Creatinine Ratio Cancelled Cancelled Glucose Cancelled Cancelled Calcium Cancelled Cancelled Total Bilirubin Cancelled Cancelled AST Cancelled Cancelled ALT Cancelled Cancelled Alkaline Phosphatase Cancelled Cancelled Total Protein Cancelled Cancelled Albumin Cancelled Cancelled Globulin Cancelled Cancelled Albumin/Globulin Ratio Cancelled Cancelled Lipase Cancelled Cancelled Urine Color Urine Clarity Urine pH Ur Specific [place] Urine Protein Urine Glucose (UA) Urine Ketones Urine Occult Blood Urine Nitrite Urine Bilirubin Urine Urobilinogen Ur Leukocyte Esterase Urine RBC Urine WBC Ur Squamous Epith Cells Urine Bacteria Urine Mucus 05/20/18 05/20/18 09:15 09:20 WBC RBC Hgb Hct MCV MCH MCHC RDW RDW Differential Plt Count MPV Immature Gran % (Auto) Neut % (Auto) Lymph % (Auto) [place] % (Auto) Eos % (Auto) Baso % (Auto) Absolute Neuts (auto) Absolute Lymphs (auto) Total Counted Differential Comment Sodium 138 Potassium 3.7 Chloride 100 Carbon Dioxide 26.0 Anion Gap 12 BUN 25 H Creatinine 0.85 Estim Creat Clear Calc 93.51 Est GFR (MDRD) Af Amer 117 Est GFR (MDRD) Non-Af 96 BUN/Creatinine Ratio 29.4 H Glucose 110 H Calcium 8.5 Total Bilirubin 0.80 AST 39 H ALT 86 H Alkaline Phosphatase 159 H Total Protein 7.2 Albumin 3.2 Globulin 4.0 Albumin/Globulin Ratio 0.8 L Lipase 1700 H Urine Color Yellow Urine Clarity Clear Urine pH 8.0 Ur Specific [place] 1.010 Urine Protein Negative Urine Glucose (UA) Normal Urine Ketones Negative Urine Occult Blood 25 H Urine Nitrite Negative Urine Bilirubin Negative Urine Urobilinogen Normal Ur Leukocyte Esterase Negative Urine RBC 0-5 SEEN Urine WBC 0-5 SEEN Ur Squamous Epith Cells 0 SEEN Urine Bacteria 0 SEEN Urine Mucus 0 SEEN Assessment/Plan All Active Problems (Last Reviewed 05/17/18 @ 23:56 by Ananth Bassett MD) Abdominal pain (Acute) Choledocholithiasis (Acute) Transaminitis (Acute) Obstructive jaundice (Acute) Idiopathic pancreatitis (Acute) CAP (community acquired pneumonia) (Resolved) Abdominal hernia (Resolved) History of bowel resection (Resolved) History of cholecystectomy (Resolved) History of appendectomy (Resolved) Acute bronchitis (Resolved) At this point treating the patient with n.p.o. and IV fluids is appropriate. I have spoken to Dr. Holt. Usually with pancreatitis you get this within 12 hours after the procedure and it is been longer than that for his procedure. Nevertheless his pancreatitis is most likely related to the ERCP. We are going to leave the stent in place. Do not think antibiotics are needed at this point.
[2018-05-20 12:00] VITALS: BMI 34.2
[2018-05-20 12:15] VITALS: BP 159/92; PULSE 64; RESP 16; TEMP 36.8; O2SAT 96; BMI 34.3
--- NOTE | 2018-05-20 13:11 | PCM.HP.STD ---
Problem List (1) Choledocholithiasis Status: Acute (2) Transaminitis Status: Acute (3) Obstructive jaundice Status: Acute (4) Idiopathic pancreatitis Status: Acute Qualifiers: Chronicity: acute Acute pancreatitis complication: no infection or necrosis Qualified Code(s): K85.00 - Idiopathic acute pancreatitis without necrosis or infection (5) CAP (community acquired pneumonia) Status: Resolved Qualifiers: Laterality: right Lung location: lower lobe of lung Qualified Code(s): J18.1 - Lobar pneumonia, unspecified organism (6) Gynecomazia Status: Chronic (7) Abdominal hernia Status: Resolved (8) History of bowel resection Status: Resolved (9) History of cholecystectomy Status: Resolved (10) History of appendectomy Status: Resolved (11) Acute bronchitis Status: Resolved Qualifiers: Bronchitis organism: unspecified organism Qualified Code(s): J20.9 - Acute bronchitis, unspecified (12) Chronic pancreatitis Status: Chronic Qualifiers: Pancreatitis type: unspecified pancreatitis type Qualified Code(s): K86.1 - Other chronic pancreatitis (13) Crohn's disease of small intestine Status: Chronic Qualifiers: Digestive disease complication type: unspecified complication Qualified Code(s): K50.019 - Crohn's disease of small intestine with unspecified complications (14) Dyslipidemia Status: Chronic (15) Acute on recurrent pancreatitis Status: Acute History of Present Illness Date of Admission: 05/20/18 Chief Complaint: Abdominal pain obviously worsening since yesterday The patient is a 62 year old M with history of Crohn's disease and pancreatitis was discharged on 05/19/2013 after he had ERCP with sphincterotomy and bile duct stenting by came to ER with abdominal pain. Patient did not had abdominal pain for more than 36 hours before discharge and then he went home and ate cheese sandwich. Started having abdominal pain which got progressively worse past midnight with dry heaves that made him to come to ER. Patient is diffuse although started from upper abdomen. Denies any fever or chills. He did not respond to IV morphine in ED but Dilaudid controlled his pain. He also had pancreatitis in the past and he thinks it is because of Crohn's disease. Had cholecystectomy, appendectomy and bowel surgery ?2. [] Past Medical History Past Medical History (Chronic Problems): Chronic Problems (Last Reviewed 05/20/18 @ 10:43 by Gaston Tolbert MD) Gynecomazia (Chronic) Chronic pancreatitis (Chronic) Crohn's disease of small intestine (Chronic) Dyslipidemia (Chronic) Medical History: Medical History (Last Reviewed 05/20/18 @ 10:43 by Gaston Tolbert MD) Gynecomazia (Chronic) N62 Acute bronchitis (Resolved) J20.9 Chronic pancreatitis (Chronic) K86.1 Crohn's disease of small intestine (Chronic) K50.00 Dyslipidemia (Chronic) E78.5 Allergies No Known Allergies Allergy (Verified 05/20/18 07:49) Home Medications: Ambulatory Orders Medication Instructions Recorded Adalimumab [Humira] 40 mg SQ Q14D 01/10/14 Omeprazole [Prilosec] 40 mg PO DAILY 01/10/14 Cholestyramine (with Sugar) 1 dose PO QHS 12/16/17 [Cholestyramine Powder] Lipase/Protease/Amylase [Creon Dr 1 cap PO TID PRN 12/16/17 36,000 Units Capsule] Albuterol Inhaler [Ventolin Hfa] 1 puff INHALATION Q4H PRN PRN #1 12/20/17 inhaler albuterol sulfate HFA 90 2 puff INHALATION Q6H PRN #1 device 04/12/18 mcg/actuation aerosol inhaler Surgical History: Surgical History (Last Reviewed 05/20/18 @ 10:43 by Gaston Tolbert MD) Abdominal hernia (Resolved) K46.9 History of bowel resection (Resolved) Z98.890, Z90.49 History of cholecystectomy (Resolved) Z90.49 History of appendectomy (Resolved) Z90.49 Surgical History: - - Bowel resection, appendectomy, cholecystectomy, ventral hernia repair, right fifth toe resection. Psychiatric History: No pertinent psych hx Smoking Status: Former smoker Tobacco Use: Cigarettes - *Family History Maternal History Items: No pertinent history Paternal History Items: - - Father with a history of lung cancer and concurrent tobacco use. Review of Systems Constitutional: Denies: Chills, Fever, Weight Change HEENT: Denies: Head Aches, Sinus Congestion, Sinus Drainage Cardiovascular: Denies: Chest Pain, Palpitations Respiratory: Denies: Cough, Shortness of breath at rest, Sputum production Gastrointestinal: Reports: Abdominal Pain, Nausea. Denies: Constipation, Diarrhea, Vomiting Genitourinary: Denies: Dysuria Musculoskeletal: Denies: Joint Pain, Joint Tenderness Skin: Denies: Rash, Wounds Neurological: Denies: Numbness, Tingling, Focal weakness Psychiatric: Denies: Anxiety, Depression, Homicidal Ideations, Suicidal Ideations Hematologic/ Lymphatic: Denies: Easy Bruising, Easy Bleeding VTE Information - Inpt Only VTE Present on Admission: No VTE Mechan Device Prophylaxis: None VTE Pharm Prophylaxis ordered?: Yes Patient Problems: Active and Suspected Problems (Last Reviewed 05/20/18 @ 10:43 by Gaston Tolbert MD) Idiopathic pancreatitis (Acute) Acute on recurrent pancreatitis (Acute) - Physical Exam General: Alert, Oriented x3, Cooperative HEENT: Atraumatic, PERRLA, EOMI, Normocephalic Neck: Supple, No JVD, Negative Carotid Bruits Lungs: Clear to auscultation, Normal air movement, No rhonchi, No wheeze, No rales Cardiovascular: Regular rate, Regular Rhythm, Normal S1, Normal S2, No murmurs Abdomen: Bowel Sounds Present, Soft, Tender - Diffuse tenderness predominantly in upper abdomen, - - Surgical scar of previous surgeries Extremities: No edema, Capillary Refill Less than 3 Seconds Skin: No rashes, No breakdown Musculoskeletal: No Tenderness to Palpation of Joints or Extremities Neurological: Cranial nerves II-XII grossly intact Psych/Mental Status: Normal Affect, Appropriate Vital Signs Temp Pulse Resp BP Pulse Ox 98.3 F 64 16 159/92 H 96 05/20/18 12:15 05/20/18 12:15 05/20/18 12:15 05/20/18 12:15 05/20/18 12:15 Oxygen Delivery Method Room Air Weight: 245 lb 9.519 oz Body Mass Index (BMI) 34.2 Assessment/Plan All Active Problems (Last Reviewed 05/20/18 @ 10:43 by Gaston Tolbert MD) Choledocholithiasis (Acute) Transaminitis (Acute) Obstructive jaundice (Acute) Idiopathic pancreatitis (Acute) Acute on recurrent pancreatitis (Acute) CAP (community acquired pneumonia) (Resolved) Abdominal hernia (Resolved) History of bowel resection (Resolved) History of cholecystectomy (Resolved) History of appendectomy (Resolved) Acute bronchitis (Resolved) The patient is a 62 year old M with history of Crohn's disease and pancreatitis was discharged on 05/19/2013 after he had ERCP with sphincterotomy and bile duct stenting by came to ER with abdominal pain. Patient did not had abdominal pain for more than 36 hours before discharge and then he went home and ate cheese sandwich. Started having abdominal pain which got progressively worse past midnight with dry heaves that made him to come to ER. Patient is diffuse although started from upper abdomen. Denies any fever or chills. He did not respond to IV morphine in ED but Dilaudid controlled his pain. He also had pancreatitis in the past and he thinks it is because of Crohn's disease. Had cholecystectomy, appendectomy and bowel surgery ?2. 1. Acute on recurrent pancreatitis, this time probably exacerbated by recent ERCP: Patient labs also elevated lipase 1700 and elevated transaminases ALT 86, AST 39, alkaline phosphatase 159 but normal bilirubin 0.8. During previous admission his ALT, AST was 142 and 150 respectively therefore it is improving. Leukocytosis also improving. Keep the patient n.p.o. except sips and ice chips. On IV fluid normal saline. Pain control. No need for antibiotics as does not seem to be infected. CT abdomen with IV contrast shows status post CBD stent and mild pneumobilia secondary to recent stent. Hold pancreatic enzyme supplement until he starts diet. 2. History of Crohn's disease status post multiple bowel surgeries: Patient is on cholestyramine and Humira. Hold it. Patient had bowel movement yesterday. Patient usually gets diarrhea secondary to Crohn's disease. 3. Chronic GERD: Continue Protonix. 4. Prophylaxis: On Lovenox 40 mg subcu daily. Laboratory Results 05/20/18 08:15: WBC 15.4 H, RBC 4.92, Hgb 15.5, Hct 44.3, MCV 90.0, MCH 31.5, MCHC 35.0, RDW 13.5, RDW Differential 44.0 H, Plt Count 323, MPV 9.4, Immature Gran % (Auto) 0.800, Neut % (Auto) 70.9 H, Lymph % (Auto) 16.1 L, [place] % (Auto) 11.5 H, Eos % (Auto) 0.3, Baso % (Auto) 0.4, Absolute Neuts (auto) 10.9 H, Absolute Lymphs (auto) 2.47, Total Counted Not Reportable, Differential Comment SCANNED 05/20/18 09:15: Sodium 138, Potassium 3.7, Chloride 100, Carbon Dioxide 26.0, Anion Gap 12, BUN 25 H, Creatinine 0.85, Estim Creat Clear Calc 93.51, Est GFR (MDRD) Af Amer 117, Est GFR (MDRD) Non-Af 96, BUN/Creatinine Ratio 29.4 H, Glucose 110 H, Calcium 8.5, Total Bilirubin 0.80, AST 39 H, ALT 86 H, Alkaline Phosphatase 159 H, Total Protein 7.2, Albumin 3.2, Globulin 4.0, Albumin/Globulin Ratio 0.8 L, Lipase 1700 H 05/20/18 09:20: Urine Color Yellow, Urine Clarity Clear, Urine pH 8.0, Ur Specific [place] 1.010, Urine Protein Negative, Urine Glucose (UA) Normal, Urine Ketones Negative, Urine Occult Blood 25 H, Urine Nitrite Negative, Urine Bilirubin Negative, Urine Urobilinogen Normal, Ur Leukocyte Esterase Negative, Urine RBC 0-5 SEEN, Urine WBC 0-5 SEEN, Ur Squamous Epith Cells 0 SEEN, Urine Bacteria 0 SEEN, Urine Mucus 0 SEEN Clinical Impression(s) from Imaging Studies Abdomen/Pelvis CT 05/20/18 08:00 IMPRESSION: 1. Status post common bile duct stent placement. 2. Mild pneumobilia. 3. Nonobstructing stone in the right kidney without evidence of hydronephrosis. 4. Mild diverticulosis without evidence of acute diverticulitis. 5. Nonvisualization of the appendix. This note was generated with [employer] dictation software. Every effort was made to ensure accuracy, however computerized aircraft load controller mistakes may persist. Code Visit Inpatient E&M: 00511 Init Hosp L3
[2018-05-20] MEDS: Enoxaparin 40 MG/0.4 ML Syringe SC (13:39)
[2018-05-20] MEDS: 0.9% NaCl Peripheral Flush Adult/Peds IV (13:39)
[2018-05-20] MEDS: 0.9% Normal Saline 1,000 ML 150 ML IV ×2 (14:09→22:11)
[2018-05-20 16:27] VITALS: BP 162/102; PULSE 70; RESP 18; TEMP 36.7; O2SAT 98
[2018-05-20 19:47] VITALS: BP 157/95; PULSE 67
[2018-05-20] MEDS: proMETHazine 25 MG/ML Syringe 12.5 MG IV (19:48)
[2018-05-20] MEDS: HYDROmorphone 1 MG/ML Syringe 2 MG IV ×2 (19:49→23:57)
[2018-05-20 22:13] VITALS: BP 144/86; PULSE 70; RESP 14; TEMP 37; O2SAT 94
[2018-05-21 03:00] VITALS: BP 167/90; PULSE 89; RESP 18; TEMP 37.6; O2SAT 97
[2018-05-21] MEDS: HYDROmorphone 1 MG/ML Syringe 2 MG IV ×6 (03:00→23:01)
[2018-05-21] MEDS: proMETHazine 25 MG/ML Syringe 12.5 MG IV (03:07)
[2018-05-21] MEDS: 0.9% Normal Saline 1,000 ML 150 ML IV ×3 (04:36→19:47)
[2018-05-21 05:41] VITALS: BP 167/100; PULSE 85; RESP 16; TEMP 37.6; O2SAT 95
[2018-05-21] MEDS: Ondansetron 4 MG/2 ML Vial IV ×2 (05:45→12:26)
[2018-05-21] MEDS: HYDROmorphone 1 MG/ML Syringe IV ×2 (06:13→07:42)
[2018-05-21 06:54] LABS: Absolute Lymphocyte Count 1.65 X10^3/ul (0.83-4.51); Absolute Neutrophil Count 11.5 X10^3/uL (2.0-7.7); Basophil# 0.04 X10^3/uL; Basophil% 0.3 % (0-1); Eosinophil# 0.09 X10^3/uL; Eosinophils% 0.6 % (0-5); Hematocrit 44.2 % (40-54); Hemoglobin 15.3 g/dl (13.0-16.5); Lymphocyte # 1.65 X10^3/ul (4.0); Lymphocyte % 10.5 % (19-41); Mean Corp Hgb Conc 34.6 g/gl (32-36); Mean Corpuscular Hgb 31.7 pg (27.0-32.0); Mean Corpuscular Volume 91.5 fL (80-94); Mean Platelet Vol. 9.1 fl (6.2-12.0); Monocyte# 2.44 X10^3/uL; Monocyte% 15.5 % (0-10); Neutrophil # 11.45 X10^3/uL (2.7-7.7); Neutrophil % 72.6 % (47-70); Platelet Count 286 K/mm3 (150-450); RBC Distribution Width CV 13.5 % (11.6-14.6); RBC Distribution Width SD 44.9 fl (35.1-43.9); Red Blood Count 4.83 M/mm3 (4.6-6.2); White Blood Count 15.8 K/mm3 (4.4-11.0)
[2018-05-21 06:56] LABS: Differential Indicated SCAN CRITERIA MET; POSITIVE COUNT NO; POSITIVE DIFFERENTIAL YES; POSITIVE MORPHOLOGY NO
[2018-05-21 07:12] LABS: AST(SGOT) 25 U/L (15-37); Alanine Aminotransfer ALT/SGPT 60 U/L (16-61); Albumin, Serum 2.8 g/dL (3.2-5.0); Alkaline Phosphatase 144 U/L (45-117); Anion Gap 9 (5-15); BUN 17 mg/dL (7-18); BUN/Creat Ratio 20.3 RATIO (10-20); Bilirubin, Direct 0.31 mg/dL (0.00-0.30); Calcium,Total 8.1 mg/dL (8.5-10.1); Chloride 102 mmol/L (98-107); Creatinine, Serum 0.84 mg/dL (0.70-1.30); EST Glomerular Filtration Rate 98 mL/min (>60); Est Glom Filt Rate - Afr Amer 119 mL/min (>60); Estimated Creatinine Clearance 94.62 ml/min; Globulin 4.8 g/dL (2.2-4.2); Glucose 91 mg/dL (74-106); Lipase 470 U/L (73-393); Potassium 3.5 mmol/L (3.5-5.1); Protein, Total 7.6 g/dL (6.4-8.2); Sodium Level 135 mmol/L (136-145)
[2018-05-21] MEDS: 0.9% NaCl Peripheral Flush Adult/Peds IV ×3 (07:41→16:44)
[2018-05-21 09:13] VITALS: BP 182/98; PULSE 102; RESP 16; TEMP 37.3; O2SAT 96
--- NOTE | 2018-05-21 09:40 | CT_ITS ---
STUDY: CT ABDOMEN AND PELVIS WITH CONTRAST REASON FOR EXAM: Male, 62 years old. Increasing abdominal pain. History of stent placement. History of Crohn's disease and pancreatitis. RADIATION DOSAGE (If Supplied By Facility): CTDIvol = ( 16.99 ) mGy, DLP = ( 1252.83 ) mGycm TECHNIQUE: Transaxial images were obtained from the dome of the diaphragm to the symphysis pubis without oral contrast. 100 ml of Isovue 370 contrast was administered. Sagittal and coronal images were reconstructed. Individualized dose optimization techniques were used for this CT. COMPARISON: 05/20/2018. FINDINGS: The visualized lung bases are unremarkable. The visualized portions of the heart are within normal limits. There again is mild diffuse fatty infiltration of the liver. No focal lesion is seen. The previously noted pneumobilia in the left lobe of the liver has essentially resolved. There is minimal prominence of the central intrahepatic biliary ducts. Common bile duct stent is again seen. The gallbladder again is not identified. Normal spleen. There is mild stranding around the pancreas. The pancreas again is atrophic. Early acute pancreatitis is suspected. Normal bilateral adrenal glands. Normal right kidney. Normal left kidney. Normal visualized stomach. There are nonspecific fluid-filled small bowel loops. There is no evidence of small bowel obstruction. The sigmoid colon is suboptimally distended. There again is diverticulosis of the sigmoid colon but there is no evidence of acute diverticulitis. There is non-visualization of the appendix. Normal abdominal aorta. Normal inferior vena cava. Normal retroperitoneum. Normal urinary bladder. Surgical clip is again seen in the right anterior abdominal wall. There are degenerative changes of the lumbar spine at the levels of L3-L4 and L4-L5 with narrowing of the disc spaces and posterior degenerative spurs. Degenerative changes in the lower thoracic spine are also seen. CT/Abdomen/Pelvis WITH Contrast IMPRESSION: 1. Subtle mild stranding around the pancreas suggestive of early acute pancreatitis. 2. Common bile duct stent in stable position. 3. Nonspecific fluid-filled small bowel loops without evidence of small bowel obstruction likely due to ileus. 4. Diverticulosis without evidence for acute diverticulitis. Electronically Signed: Manohar Castañeda MD at 13:33 EDT Tel , Service support ,
[2018-05-21] MEDS: Enoxaparin 40 MG/0.4 ML Syringe SC (09:46)
--- NOTE | 2018-05-21 10:23 | PN.SURG_ITS ---
Patient Problems: Active and Suspected Problems (Last Reviewed 05/20/18 @ 10:43 by Gaston Tolbert MD) Idiopathic pancreatitis (Acute) Acute on recurrent pancreatitis (Acute) Subjective: Complaining of significant abdominal and back pain. Requiring large amounts of IV narcotics. Objective: Abdomen is diffusely tender somewhat out of proportion - Physical Exam Vital Signs Temp Pulse Resp BP Pulse Ox 99.1 F 102 H 16 182/98 H 96 05/21/18 09:13 05/21/18 09:13 05/21/18 09:13 05/21/18 09:13 05/21/18 09:13 Oxygen Delivery Method Nasal Cannula Weight: 245 lb 9.519 oz Body Mass Index (BMI) 34.2 Intake and Output for Last 24 Hours 05/19/18 05/20/18 05/21/18 23:59 23:59 23:59 Intake Total 1378 / 1378 868 / 868 Balance 1378 / 1378 868 / 868 Laboratory Tests Past 24 Hrs 05/21/18 05/21/18 06:00 06:00 WBC 15.8 H RBC 4.83 Hgb 15.3 Hct 44.2 MCV 91.5 MCH 31.7 MCHC 34.6 RDW 13.5 RDW Differential 44.9 H Plt Count 286 MPV 9.1 Immature Gran % (Auto) 0.500 Neut % (Auto) 72.6 H Lymph % (Auto) 10.5 L [place] % (Auto) 15.5 H Eos % (Auto) 0.6 Baso % (Auto) 0.3 Absolute Neuts (auto) 11.5 H Absolute Lymphs (auto) 1.65 Total Counted Not Reportable Diff Path Review May foll Sodium 135 L Potassium 3.5 Chloride 102 Carbon Dioxide 24.0 Anion Gap 9 BUN 17 Creatinine 0.84 Estim Creat Clear Calc 94.62 Est GFR (MDRD) Af Amer 119 Est GFR (MDRD) Non-Af 98 BUN/Creatinine Ratio 20.3 H Glucose 91 Calcium 8.1 L Total Bilirubin 1.20 H Direct Bilirubin 0.31 H AST 25 ALT 60 Alkaline Phosphatase 144 H Total Protein 7.6 Albumin 2.8 L Globulin 4.8 H Lipase 470 H Medical Necessity - Tobacco Use Smoking Status: Former smoker Tobacco Use: Cigarettes Assessment/Plan All Active Problems (Last Reviewed 05/20/18 @ 10:43 by Gaston Tolbert MD) Choledocholithiasis (Acute) Transaminitis (Acute) Obstructive jaundice (Acute) Idiopathic pancreatitis (Acute) Acute on recurrent pancreatitis (Acute) CAP (community acquired pneumonia) (Resolved) Abdominal hernia (Resolved) History of bowel resection (Resolved) History of cholecystectomy (Resolved) History of appendectomy (Resolved) Acute bronchitis (Resolved) Patient will need to have a repeat CAT scan of the abdomen and pelvis with both IV and p.o. contrast.
[2018-05-21 13:37] VITALS: BP 178/96; PULSE 98; RESP 16; TEMP 37.8; O2SAT 94
--- NOTE | 2018-05-21 15:40 | PCM.PN.HOSP ---
Patient Problems: Active and Suspected Problems (Last Reviewed 05/20/18 @ 10:43 by Gaston Tolbert MD) Idiopathic pancreatitis (Acute) Acute on recurrent pancreatitis (Acute) Subjective: The patient has abdominal pain and requires Dilaudid every 3 hours. Fentanyl patch was ordered yesterday but patient patient did not like it. CT abdomen repeat was done today. Images and findings discussed with Dr. Tolbert. Patient has low-grade temperature 100.1?F. Blood pressure elevated. Vitals/I&O's: Vital Signs Temp Pulse Resp BP Pulse Ox 100.1 F H 98 16 178/96 H 94 05/21/18 13:37 05/21/18 13:37 05/21/18 13:37 05/21/18 13:37 05/21/18 13:37 Oxygen Delivery Method Room Air Weight: 245 lb 9.519 oz Body Mass Index (BMI) 34.2 Intake and Output for Last 24 Hours 05/19/18 05/20/18 05/21/18 23:59 23:59 23:59 Intake Total 1378 / 1378 1827 / 1827 Output Total 450 / 450 Balance 1378 / 1378 1377 / 1377 General: Alert, Oriented x3, Cooperative HEENT: Atraumatic, PERRLA, EOMI, Normocephalic Neck: Supple, No JVD, Negative Carotid Bruits Lungs: Clear to auscultation, Normal air movement, Diminished Cardiovascular: Regular rate, Normal S1, Normal S2, No murmurs Abdomen: Bowel Sounds Present, Soft, Tender - Severe tenderness present all over abdomen predominantly in the upper abdomen Extremities: Capillary Refill Less than 3 Seconds, Edema Skin: No rashes, No breakdown Musculoskeletal: No Tenderness to Palpation of Joints or Extremities Neurological: Cranial nerves II-XII grossly intact Psych/Mental Status: Normal Affect, Appropriate Laboratory Results 05/21/18 06:00: WBC 15.8 H, RBC 4.83, Hgb 15.3, Hct 44.2, MCV 91.5, MCH 31.7, MCHC 34.6, RDW 13.5, RDW Differential 44.9 H, Plt Count 286, MPV 9.1, Immature Gran % (Auto) 0.500, Neut % (Auto) 72.6 H, Lymph % (Auto) 10.5 L, [place] % (Auto) 15.5 H, Eos % (Auto) 0.6, Baso % (Auto) 0.3, Absolute Neuts (auto) 11.5 H, Absolute Lymphs (auto) 1.65, Total Counted Not Reportable, Diff Path Review January05/21/18 06:00: Sodium 135 L, Potassium 3.5, Chloride 102, Carbon Dioxide 24.0, Anion Gap 9, BUN 17, Creatinine 0.84, Estim Creat Clear Calc 94.62, Est GFR (MDRD) Af Amer 119, Est GFR (MDRD) Non-Af 98, BUN/Creatinine Ratio 20.3 H, Glucose 91, Calcium 8.1 L, Total Bilirubin 1.20 H, Direct Bilirubin 0.31 H, AST 25, ALT 60, Alkaline Phosphatase 144 H, Total Protein 7.6, Albumin 2.8 L, Globulin 4.8 H, Lipase 470 H Current Medications Albuterol Sulfate (Ventolin Aerosols) 2.5 mg INHALATION Q4H PRN PRN Reason: shortness of breath/wheezing Enoxaparin Sodium (Lovenox) 40 mg SC DAILY@1000 [facility] Last Admin: 05/21/18 09:46 Dose: 40 mg Fentanyl (Duragesic Patch) 50 mcg TRANSDERM. Q3D [facility] Last Admin: 05/20/18 17:42 Dose: Not Given Hydromorphone HCl (Dilaudid Inj) 2 mg IV Q3H PRN PRN PRN Reason: SEVERE PAIN (6-10/10) Last Admin: 05/21/18 13:35 Dose: 2 mg Hydromorphone HCl (Dilaudid Inj) 1 mg IV Q3H PRN PRN PRN Reason: Mod Pain Last Admin: 05/21/18 07:42 Dose: 1 mg Pantoprazole Sodium 40 mg/ (Sodium Chloride) 110 mls @ 330 mls/hr IV Q24 [facility] Last Admin: 05/21/18 09:45 Dose: 330 mls/hr Sodium Chloride () 1,000 mls @ 150 mls/hr IV .Q6H40M [facility] Last Admin: 05/21/18 11:46 Dose: 150 mls/hr Magnesium Hydroxide (Milk Of Magnesia) 30 ml PO DAILY PRN PRN PRN Reason: Constipation Ondansetron HCl (Zofran) 4 mg IV Q6H PRN PRN PRN Reason: NAUSEA Last Admin: 05/21/18 12:26 Dose: 4 mg Promethazine HCl (Phenergan) 12.5 mg IV Q6H PRN PRN PRN Reason: NAUSEA/VOMITING Last Admin: 05/21/18 03:07 Dose: 12.5 mg Sodium Chloride () 5 - 30 ml IV UD PRN PRN Reason: SALINE FLUSH Last Admin: 05/21/18 10:00 Dose: 10 ml Medical Necessity - Tobacco Use Smoking Status: Former smoker Tobacco Use: Cigarettes Assessment/Plan All Active Problems (Last Reviewed 05/20/18 @ 10:43 by Gaston Tolbert MD) Choledocholithiasis (Acute) Transaminitis (Acute) Obstructive jaundice (Acute) Idiopathic pancreatitis (Acute) Acute on recurrent pancreatitis (Acute) CAP (community acquired pneumonia) (Resolved) Abdominal hernia (Resolved) History of bowel resection (Resolved) History of cholecystectomy (Resolved) History of appendectomy (Resolved) Acute bronchitis (Resolved) The patient is a 62 year old M with history of Crohn's disease and pancreatitis was discharged on 05/19/2013 after he had ERCP with sphincterotomy and bile duct stenting by came to ER with abdominal pain. Patient did not had abdominal pain for more than 36 hours before discharge and then he went home and ate cheese sandwich. Started having abdominal pain which got progressively worse past midnight with dry heaves that made him to come to ER. Patient is diffuse although started from upper abdomen. Denies any fever or chills. He did not respond to IV morphine in ED but Dilaudid controlled his pain. He also had pancreatitis in the past and he thinks it is because of Crohn's disease. Had cholecystectomy, appendectomy and bowel surgery ?2. CT abdomen with IV contrast shows status post CBD stent and mild pneumobilia secondary to recent stent. 1. Acute on recurrent pancreatitis, this time probably exacerbated by recent ERCP: Patient labs also elevated lipase 1700 and elevated transaminases ALT 86, AST 39, alkaline phosphatase 159 but normal bilirubin 0.8. During previous admission his ALT, AST was 142 and 150 respectively therefore it is improving. White count is 15,000. Transaminases improved and now normal. Total bili is 1.2. Lipase improved to 470. Repeat CT abdomen with oral and IV contrast was done today. It is reported as subtle mild stranding around the pancreas suggestive of early acute pancreatitis. CT abdomen images and findings discussed with the Dr. Tolbert. We agree on starting on Zosyn in view of recent ERCP and postprocedure acute pancreatitis and possible infection. Keep the patient n.p.o. except sips and ice chips. On IV fluid normal saline. Pain control. Hold pancreatic enzyme supplement until he starts diet. 2. History of Crohn's disease status post multiple bowel surgeries: Patient is on cholestyramine and Humira. Hold it. Patient had bowel movement yesterday. Patient usually gets diarrhea secondary to Crohn's disease. Hypertension: Since patient is n.p.o., labetalol 10 mg IV every 4 hourly as needed for systolic blood pressure more than 180 mmHg. 3. Chronic GERD: Continue Protonix. 4. Prophylaxis: On Lovenox 40 mg subcu daily. Laboratory Results 05/20/18 08:15: WBC 15.4 H, RBC 4.92, Hgb 15.5, Hct 44.3, MCV 90.0, MCH 31.5, MCHC 35.0, RDW 13.5, RDW Differential 44.0 H, Plt Count 323, MPV 9.4, Immature Gran % (Auto) 0.800, Neut % (Auto) 70.9 H, Lymph % (Auto) 16.1 L, [place] % (Auto) 11.5 H, Eos % (Auto) 0.3, Baso % (Auto) 0.4, Absolute Neuts (auto) 10.9 H, Absolute Lymphs (auto) 2.47, Total Counted Not Reportable, Differential Comment SCANNED 05/20/18 09:15: Sodium 138, Potassium 3.7, Chloride 100, Carbon Dioxide 26.0, Anion Gap 12, BUN 25 H, Creatinine 0.85, Estim Creat Clear Calc 93.51, Est GFR (MDRD) Af Amer 117, Est GFR (MDRD) Non-Af 96, BUN/Creatinine Ratio 29.4 H, Glucose 110 H, Calcium 8.5, Total Bilirubin 0.80, AST 39 H, ALT 86 H, Alkaline Phosphatase 159 H, Total Protein 7.2, Albumin 3.2, Globulin 4.0, Albumin/Globulin Ratio 0.8 L, Lipase 1700 H 05/20/18 09:20: Urine Color Yellow, Urine Clarity Clear, Urine pH 8.0, Ur Specific [place] 1.010, Urine Protein Negative, Urine Glucose (UA) Normal, Urine Ketones Negative, Urine Occult Blood 25 H, Urine Nitrite Negative, Urine Bilirubin Negative, Urine Urobilinogen Normal, Ur Leukocyte Esterase Negative, Urine RBC 0-5 SEEN, Urine WBC 0-5 SEEN, Ur Squamous Epith Cells 0 SEEN, Urine Bacteria 0 SEEN, Urine Mucus 0 SEEN Clinical Impression(s) from Imaging Studies Abdomen/Pelvis CT 05/20/18 08:00 IMPRESSION: 1. Status post common bile duct stent placement. 2. Mild pneumobilia. 3. Nonobstructing stone in the right kidney without evidence of hydronephrosis. 4. Mild diverticulosis without evidence of acute diverticulitis. 5. Nonvisualization of the appendix. Electronically Signed: Manohar Castañeda MD at 9:43 EDT Tel , Service support , Abdomen/Pelvis CT 05/21/18 09:40 IMPRESSION: 1. Subtle mild stranding around the pancreas suggestive of early acute pancreatitis. 2. Common bile duct stent in stable position. 3. Nonspecific fluid-filled small bowel loops without evidence of small bowel obstruction likely due to ileus. 4. Diverticulosis without evidence for acute diverticulitis. This note was generated with [employer] dictation software. Every effort was made to ensure accuracy, however computerized composition mixer mistakes may persist. Code Visit Inpatient E&M: 25956 Subs Hosp L3
--- NOTE | 2018-05-21 15:45 | PN_ITS ---
Patient Problems: Active and Suspected Problems (Last Reviewed 05/20/18 @ 10:43 by Gaston Tolbert MD) Idiopathic pancreatitis (Acute) Acute on recurrent pancreatitis (Acute) Subjective: The patient has abdominal pain and requires Dilaudid every 3 hours. Fentanyl patch was ordered yesterday but patient patient did not like it. CT abdomen repeat was done today. Images and findings discussed with Dr. Tolbert. Patient has low-grade temperature 100.1?F. Blood pressure elevated. Vitals/I&O's: Vital Signs Temp Pulse Resp BP Pulse Ox 100.1 F H 98 16 178/96 H 94 05/21/18 13:37 05/21/18 13:37 05/21/18 13:37 05/21/18 13:37 05/21/18 13:37 Oxygen Delivery Method Room Air Weight: 245 lb 9.519 oz Body Mass Index (BMI) 34.2 Intake and Output for Last 24 Hours 05/19/18 05/20/18 05/21/18 23:59 23:59 23:59 Intake Total 1378 / 1378 1827 / 1827 Output Total 450 / 450 Balance 1378 / 1378 1377 / 1377 General: Alert, Oriented x3, Cooperative HEENT: Atraumatic, PERRLA, EOMI, Normocephalic Neck: Supple, No JVD, Negative Carotid Bruits Lungs: Clear to auscultation, Normal air movement, Diminished Cardiovascular: Regular rate, Normal S1, Normal S2, No murmurs Abdomen: Bowel Sounds Present, Soft, Tender - Severe tenderness present all over abdomen predominantly in the upper abdomen Extremities: Capillary Refill Less than 3 Seconds, Edema Skin: No rashes, No breakdown Musculoskeletal: No Tenderness to Palpation of Joints or Extremities Neurological: Cranial nerves II-XII grossly intact Psych/Mental Status: Normal Affect, Appropriate Laboratory Results 05/21/18 06:00: WBC 15.8 H, RBC 4.83, Hgb 15.3, Hct 44.2, MCV 91.5, MCH 31.7, MCHC 34.6, RDW 13.5, RDW Differential 44.9 H, Plt Count 286, MPV 9.1, Immature Gran % (Auto) 0.500, Neut % (Auto) 72.6 H, Lymph % (Auto) 10.5 L, [place] % (Auto) 15.5 H, Eos % (Auto) 0.6, Baso % (Auto) 0.3, Absolute Neuts (auto) 11.5 H, Absolute Lymphs (auto) 1.65, Total Counted Not Reportable, Diff Path Review January05/21/18 06:00: Sodium 135 L, Potassium 3.5, Chloride 102, Carbon Dioxide 24.0, Anion Gap 9, BUN 17, Creatinine 0.84, Estim Creat Clear Calc 94.62, Est GFR ( MDRD) Af Amer 119, Est GFR (MDRD) Non-Af 98, BUN/Creatinine Ratio 20.3 H, Glucose 91, Calcium 8.1 L, Total Bilirubin 1.20 H, Direct Bilirubin 0.31 H, AST 25, ALT 60, Alkaline Phosphatase 144 H, Total Protein 7.6, Albumin 2.8 L, Globulin 4.8 H, Lipase 470 H Current Medications Albuterol Sulfate (Ventolin Aerosols) 2.5 mg INHALATION Q4H PRN PRN Reason: shortness of breath/wheezing Enoxaparin Sodium (Lovenox) 40 mg SC DAILY@1000 [facility] Last Admin: 05/21/18 09:46 Dose: 40 mg Fentanyl (Duragesic Patch) 50 mcg TRANSDERM. Q3D [facility] Last Admin: 05/20/18 17:42 Dose: Not Given Hydromorphone HCl (Dilaudid Inj) 2 mg IV Q3H PRN PRN PRN Reason: SEVERE PAIN (6-10/10) Last Admin: 05/21/18 13:35 Dose: 2 mg Hydromorphone HCl (Dilaudid Inj) 1 mg IV Q3H PRN PRN PRN Reason: Mod Pain Last Admin: 05/21/18 07:42 Dose: 1 mg Pantoprazole Sodium 40 mg/ (Sodium Chloride) 110 mls @ 330 mls/hr IV Q24 [facility] Last Admin: 05/21/18 09:45 Dose: 330 mls/hr Sodium Chloride () 1,000 mls @ 150 mls/hr IV .Q6H40M [facility] Last Admin: 05/21/18 11:46 Dose: 150 mls/hr Magnesium Hydroxide (Milk Of Magnesia) 30 ml PO DAILY PRN PRN PRN Reason: Constipation Ondansetron HCl (Zofran) 4 mg IV Q6H PRN PRN PRN Reason: NAUSEA Last Admin: 05/21/18 12:26 Dose: 4 mg Promethazine HCl (Phenergan) 12.5 mg IV Q6H PRN PRN PRN Reason: NAUSEA/VOMITING Last Admin: 05/21/18 03:07 Dose: 12.5 mg Sodium Chloride () 5 - 30 ml IV UD PRN PRN Reason: SALINE FLUSH Last Admin: 05/21/18 10:00 Dose: 10 ml Medical Necessity - Tobacco Use Smoking Status: Former smoker Tobacco Use: Cigarettes Assessment/Plan All Active Problems (Last Reviewed 05/20/18 @ 10:43 by Gaston Tolbert MD) Choledocholithiasis (Acute) Transaminitis (Acute) Obstructive jaundice (Acute) Idiopathic pancreatitis (Acute) Acute on recurrent pancreatitis (Acute) CAP (community acquired pneumonia) (Resolved) Abdominal hernia (Resolved) History of bowel resection (Resolved) History of cholecystectomy (Resolved) History of appendectomy (Resolved) Acute bronchitis (Resolved) The patient is a 62 year old M with history of Crohn's disease and pancreatitis was discharged on 05/19/2013 after he had ERCP with sphincterotomy and bile duct stenting by came to ER with abdominal pain. Patient did not had abdominal pain for more than 36 hours before discharge and then he went home and ate cheese sandwich. Started having abdominal pain which got progressively worse past midnight with dry heaves that made him to come to ER. Patient is diffuse although started from upper abdomen. Denies any fever or chills. He did not respond to IV morphine in ED but Dilaudid controlled his pain. He also had pancreatitis in the past and he thinks it is because of Crohn's disease. Had cholecystectomy, appendectomy and bowel surgery ?2. CT abdomen with IV contrast shows status post CBD stent and mild pneumobilia secondary to recent stent. 1. Acute on recurrent pancreatitis, this time probably exacerbated by recent ERCP: Patient labs also elevated lipase 1700 and elevated transaminases ALT 86, AST 39, alkaline phosphatase 159 but normal bilirubin 0.8. During previous admission his ALT, AST was 142 and 150 respectively therefore it is improving. White count is 15,000. Transaminases improved and now normal. Total bili is 1.2. Lipase improved to 470. Repeat CT abdomen with oral and IV contrast was done today. It is reported as subtle mild stranding around the pancreas suggestive of early acute pancreatitis. CT abdomen images and findings discussed with the Dr. Tolbert. We agree on starting on Zosyn in view of recent ERCP and postprocedure acute pancreatitis and possible infection. Keep the patient n.p.o. except sips and ice chips. On IV fluid normal saline. Pain control. Hold pancreatic enzyme supplement until he starts diet. 2. History of Crohn's disease status post multiple bowel surgeries: Patient is on cholestyramine and Humira. Hold it. Patient had bowel movement yesterday. Patient usually gets diarrhea secondary to Crohn's disease. Hypertension: Since patient is n.p.o., labetalol 10 mg IV every 4 hourly as needed for systolic blood pressure more than 180 mmHg. 3. Chronic GERD: Continue Protonix. 4. Prophylaxis: On Lovenox 40 mg subcu daily. Laboratory Results 05/20/18 08:15: WBC 15.4 H, RBC 4.92, Hgb 15.5, Hct 44.3, MCV 90.0, MCH 31.5, MCHC 35.0, RDW 13.5, RDW Differential 44.0 H, Plt Count 323, MPV 9.4, Immature Gran % (Auto) 0.800, Neut % (Auto) 70.9 H, Lymph % (Auto) 16.1 L, [place] % (Auto) 11.5 H, Eos % (Auto) 0.3, Baso % (Auto) 0.4, Absolute Neuts (auto) 10.9 H, Absolute Lymphs (auto) 2.47, Total Counted Not Reportable, Differential Comment SCANNED 05/20/18 09:15: Sodium 138, Potassium 3.7, Chloride 100, Carbon Dioxide 26.0, Anion Gap 12, BUN 25 H, Creatinine 0.85, Estim Creat Clear Calc 93.51, Est GFR ( MDRD) Af Amer 117, Est GFR (MDRD) Non-Af 96, BUN/Creatinine Ratio 29.4 H, Glucose 110 H, Calcium 8.5, Total Bilirubin 0.80, AST 39 H, ALT 86 H, Alkaline Phosphatase 159 H, Total Protein 7.2, Albumin 3.2, Globulin 4.0, Albumin/ Globulin Ratio 0.8 L, Lipase 1700 H 05/20/18 09:20: Urine Color Yellow, Urine Clarity Clear, Urine pH 8.0, Ur Specific [place] 1.010, Urine Protein Negative, Urine Glucose (UA) Normal, Urine Ketones Negative, Urine Occult Blood 25 H, Urine Nitrite Negative, Urine Bilirubin Negative, Urine Urobilinogen Normal, Ur Leukocyte Esterase Negative, Urine RBC 0-5 SEEN, Urine WBC 0-5 SEEN, Ur Squamous Epith Cells 0 SEEN, Urine Bacteria 0 SEEN, Urine Mucus 0 SEEN Clinical Impression(s) from Imaging Studies Abdomen/Pelvis CT 05/20/18 08:00 IMPRESSION: 1. Status post common bile duct stent placement. 2. Mild pneumobilia. 3. Nonobstructing stone in the right kidney without evidence of hydronephrosis. 4. Mild diverticulosis without evidence of acute diverticulitis. 5. Nonvisualization of the appendix. Electronically Signed: Manohar Castañeda MD at 9:43 EDT Tel , Service support , Abdomen/Pelvis CT 05/21/18 09:40 IMPRESSION: 1. Subtle mild stranding around the pancreas suggestive of early acute pancreatitis. 2. Common bile duct stent in stable position. 3. Nonspecific fluid-filled small bowel loops without evidence of small bowel obstruction likely due to ileus. 4. Diverticulosis without evidence for acute diverticulitis. This note was generated with [employer] dictation software. Every effort was made to ensure accuracy, however computerized flight crew time clerk mistakes may persist. Code Visit Inpatient E&M: 21870 Subs Hosp L3
[2018-05-21] MEDS: Piperacil/Tazobactam 3.375 GM/50 ML ML IV ×2 (16:06→22:33)
[2018-05-21 19:48] VITALS: BP 189/114; PULSE 106; RESP 16; TEMP 37.2; O2SAT 95
[2018-05-21 20:11] VITALS: BP 154/92
[2018-05-22] MEDS: proMETHazine 25 MG/ML Syringe 12.5 MG IV (00:52)
[2018-05-22 02:05] VITALS: BP 162/101; PULSE 106; RESP 16; TEMP 36.9; O2SAT 95
[2018-05-22] MEDS: HYDROmorphone 1 MG/ML Syringe 2 MG IV ×5 (02:05→18:56)
[2018-05-22] MEDS: 0.9% Normal Saline 1,000 ML 150 ML IV ×4 (03:06→23:53)
[2018-05-22] MEDS: Piperacil/Tazobactam 3.375 GM/50 ML ML IV ×3 (05:33→21:22)
[2018-05-22 07:10] LABS: Absolute Lymphocyte Count 1.72 X10^3/ul (0.83-4.51); Absolute Neutrophil Count 15.2 X10^3/uL (2.0-7.7); Basophil# 0.04 X10^3/uL; Basophil% 0.2 % (0-1); Differential Indicated SCAN CRITERIA MET; Eosinophil# 0.17 X10^3/uL; Eosinophils% 0.8 % (0-5); Hemoglobin 13.6 g/dl (13.0-16.5); Lymphocyte # 1.72 X10^3/ul (4.0); Lymphocyte % 8.5 % (19-41); Mean Corpuscular Hgb 31.3 pg (27.0-32.0); Mean Corpuscular Volume 92.2 fL (80-94); Mean Platelet Vol. 9.7 fl (6.2-12.0); Monocyte# 2.96 X10^3/uL; Monocyte% 14.7 % (0-10); Neutrophil # 15.16 X10^3/uL (2.7-7.7); Neutrophil % 75.5 % (47-70); POSITIVE COUNT YES; POSITIVE DIFFERENTIAL YES; POSITIVE MORPHOLOGY YES; Platelet Count 239 K/mm3 (150-450); RBC Distribution Width CV 13.5 % (11.6-14.6); Red Blood Count 4.34 M/mm3 (4.6-6.2); White Blood Count 20.1 K/mm3 (4.4-11.0)
[2018-05-22 07:34] LABS: AST(SGOT) 21 U/L (15-37); Alanine Aminotransfer ALT/SGPT 36 U/L (16-61); Albumin, Serum 2.4 g/dL (3.2-5.0); Alkaline Phosphatase 120 U/L (45-117); Anion Gap 11 (5-15); BUN 14 mg/dL (7-18); BUN/Creat Ratio 17.8 RATIO (10-20); Bilirubin, Direct 0.76 mg/dL (0.00-0.30); Calcium,Total 8.1 mg/dL (8.5-10.1); Chloride 101 mmol/L (98-107); Creatinine, Serum 0.79 mg/dL (0.70-1.30); EST Glomerular Filtration Rate 105 mL/min (>60); Est Glom Filt Rate - Afr Amer 127 mL/min (>60); Estimated Creatinine Clearance 100.61 ml/min; Globulin 4.4 g/dL (2.2-4.2); Glucose 87 mg/dL (74-106); Lipase 194 U/L (73-393); Potassium 3.6 mmol/L (3.5-5.1); Protein, Total 6.8 g/dL (6.4-8.2); Sodium Level 134 mmol/L (136-145)
[2018-05-22 07:44] VITALS: BP 155/82; PULSE 98; RESP 18; TEMP 37.1; O2SAT 94
[2018-05-22] MEDS: Enoxaparin 40 MG/0.4 ML Syringe SC (07:48)
--- NOTE | 2018-05-22 07:50 | PCM.PN.SRG ---
Patient Problems: Active and Suspected Problems (Last Reviewed 05/20/18 @ 10:43 by Gaston Tolbert MD) Idiopathic pancreatitis (Acute) Acute on recurrent pancreatitis (Acute) Subjective: The patient says he is having lower abdominal pain. He is not passing any flatus. No vomiting. He has no upper epigastric pain. - Physical Exam General: Alert, Oriented x3, Cooperative, No apparent distress HEENT: Atraumatic Lungs: Normal air movement Cardiovascular: Regular Rhythm, Tachycardic Abdomen: Soft, Non-Distended, Tender - Tender in the lower abdomen with no guarding or rebound. No tenderness in the upper abdomen. Vital Signs Temp Pulse Resp BP Pulse Ox 98.7 F 98 18 155/82 H 94 05/22/18 07:44 05/22/18 07:44 05/22/18 07:44 05/22/18 07:44 05/22/18 07:44 Oxygen Delivery Method Room Air Weight: 245 lb 9.519 oz Body Mass Index (BMI) 34.2 Intake and Output for Last 24 Hours 05/20/18 05/21/18 05/22/18 23:59 23:59 23:59 Intake Total 1378 / 1378 2412 / 2412 1900 / 1900 Output Total 1300 / 1300 1275 / 1275 Balance 1378 / 1378 1112 / 1112 625 / 625 Laboratory Tests Past 24 Hrs 05/22/18 05/22/18 06:06 06:06 WBC 20.1 H RBC 4.34 L Hgb 13.6 Hct 40.0 MCV 92.2 MCH 31.3 MCHC 34.0 RDW 13.5 RDW Differential 45.0 H Plt Count 239 MPV 9.7 Immature Gran % (Auto) 0.300 Neut % (Auto) 75.5 H Lymph % (Auto) 8.5 L [place] % (Auto) 14.7 H Eos % (Auto) 0.8 Baso % (Auto) 0.2 Absolute Neuts (auto) 15.2 H Absolute Lymphs (auto) 1.72 Total Counted Pending Sodium 134 L Potassium 3.6 Chloride 101 Carbon Dioxide 22.0 Anion Gap 11 BUN 14 Creatinine 0.79 Estim Creat Clear Calc 100.61 Est GFR (MDRD) Af Amer 127 Est GFR (MDRD) Non-Af 105 BUN/Creatinine Ratio 17.8 Glucose 87 Calcium 8.1 L Total Bilirubin 2.20 H Direct Bilirubin 0.76 H AST 21 ALT 36 Alkaline Phosphatase 120 H Total Protein 6.8 Albumin 2.4 L Globulin 4.4 H Lipase 194 Medical Necessity - Tobacco Use Smoking Status: Former smoker Tobacco Use: Cigarettes Assessment/Plan All Active Problems (Last Reviewed 05/20/18 @ 10:43 by Gaston Tolbert MD) Choledocholithiasis (Acute) Transaminitis (Acute) Obstructive jaundice (Acute) Idiopathic pancreatitis (Acute) Acute on recurrent pancreatitis (Acute) CAP (community acquired pneumonia) (Resolved) Abdominal hernia (Resolved) History of bowel resection (Resolved) History of cholecystectomy (Resolved) History of appendectomy (Resolved) Acute bronchitis (Resolved) 62-year-old male with abdominal pain and post ERCP pancreatitis 1. The patient had acute on chronic pancreatitis. He is on Creon chronically. He is saying that he is having no upper abdominal pain and the pain he is having now is in his lower abdomen more like his Crohn's flareups. He is not complaining of any upper abdominal pain and his lipase has returned to normal. 2. The patient has a biliary stent in place however his LFTs have risen again today. I am unsure as to why his bilirubin is going up. He had a CT on admission and again yesterday and both CT show no dilated hepatic tree and that the stent is in good position. I am unsure how this would be obstructed after only being in for a few days. Continue to monitor LFTs. 3. On CT the patient had a possible ileus. The patient is not passing any flatus and complains of lower abdominal pain. He says this is similar to his Crohn's pain. He may be having a flareup of Crohn's which would explain his white count going up and lower abdominal pain. He is normally on Humira and receives this every 2 weeks and should have had a dose yesterday. I will discuss with the primary team if we should give him a dose of Humira or if he has a possible infection going on. I do not see what his source of infection would be at this time. He is not complaining of any dysuria or productive cough. He was started on Zosyn but his white count went up despite this. 4. Continue n.p.o. and IV fluids until patient is starting to pass flatus. Jamel Maya MD Pager: [facility] [address] [place] [address], [facility] [address] [place] [address] Office:
--- NOTE | 2018-05-22 07:53 | PN.SURG_ITS ---
Patient Problems: Active and Suspected Problems (Last Reviewed 05/20/18 @ 10:43 by Gaston Tolbert MD) Idiopathic pancreatitis (Acute) Acute on recurrent pancreatitis (Acute) Subjective: The patient says he is having lower abdominal pain. He is not passing any flatus. No vomiting. He has no upper epigastric pain. - Physical Exam General: Alert, Oriented x3, Cooperative, No apparent distress HEENT: Atraumatic Lungs: Normal air movement Cardiovascular: Regular Rhythm, Tachycardic Abdomen: Soft, Non-Distended, Tender - Tender in the lower abdomen with no guarding or rebound. No tenderness in the upper abdomen. Vital Signs Temp Pulse Resp BP Pulse Ox 98.7 F 98 18 155/82 H 94 05/22/18 07:44 05/22/18 07:44 05/22/18 07:44 05/22/18 07:44 05/22/18 07:44 Oxygen Delivery Method Room Air Weight: 245 lb 9.519 oz Body Mass Index (BMI) 34.2 Intake and Output for Last 24 Hours 05/20/18 05/21/18 05/22/18 23:59 23:59 23:59 Intake Total 1378 / 1378 2412 / 2412 1900 / 1900 Output Total 1300 / 1300 1275 / 1275 Balance 1378 / 1378 1112 / 1112 625 / 625 Laboratory Tests Past 24 Hrs 05/22/18 05/22/18 06:06 06:06 WBC 20.1 H RBC 4.34 L Hgb 13.6 Hct 40.0 MCV 92.2 MCH 31.3 MCHC 34.0 RDW 13.5 RDW Differential 45.0 H Plt Count 239 MPV 9.7 Immature Gran % (Auto) 0.300 Neut % (Auto) 75.5 H Lymph % (Auto) 8.5 L [place] % (Auto) 14.7 H Eos % (Auto) 0.8 Baso % (Auto) 0.2 Absolute Neuts (auto) 15.2 H Absolute Lymphs (auto) 1.72 Total Counted Pending Sodium 134 L Potassium 3.6 Chloride 101 Carbon Dioxide 22.0 Anion Gap 11 BUN 14 Creatinine 0.79 Estim Creat Clear Calc 100.61 Est GFR (MDRD) Af Amer 127 Est GFR (MDRD) Non-Af 105 BUN/Creatinine Ratio 17.8 Glucose 87 Calcium 8.1 L Total Bilirubin 2.20 H Direct Bilirubin 0.76 H AST 21 ALT 36 Alkaline Phosphatase 120 H Total Protein 6.8 Albumin 2.4 L Globulin 4.4 H Lipase 194 Medical Necessity - Tobacco Use Smoking Status: Former smoker Tobacco Use: Cigarettes Assessment/Plan All Active Problems (Last Reviewed 05/20/18 @ 10:43 by Gaston Tolbert MD) Choledocholithiasis (Acute) Transaminitis (Acute) Obstructive jaundice (Acute) Idiopathic pancreatitis (Acute) Acute on recurrent pancreatitis (Acute) CAP (community acquired pneumonia) (Resolved) Abdominal hernia (Resolved) History of bowel resection (Resolved) History of cholecystectomy (Resolved) History of appendectomy (Resolved) Acute bronchitis (Resolved) 62-year-old male with abdominal pain and post ERCP pancreatitis 1. The patient had acute on chronic pancreatitis. He is on Creon chronically. He is saying that he is having no upper abdominal pain and the pain he is having now is in his lower abdomen more like his Crohn's flareups. He is not complaining of any upper abdominal pain and his lipase has returned to normal. 2. The patient has a biliary stent in place however his LFTs have risen again today. I am unsure as to why his bilirubin is going up. He had a CT on admission and again yesterday and both CT show no dilated hepatic tree and that the stent is in good position. I am unsure how this would be obstructed after only being in for a few days. Continue to monitor LFTs. 3. On CT the patient had a possible ileus. The patient is not passing any flatus and complains of lower abdominal pain. He says this is similar to his Crohn's pain. He may be having a flareup of Crohn's which would explain his white count going up and lower abdominal pain. He is normally on Humira and receives this every 2 weeks and should have had a dose yesterday. I will discuss with the primary team if we should give him a dose of Humira or if he has a possible infection going on. I do not see what his source of infection would be at this time. He is not complaining of any dysuria or productive cough. He was started on Zosyn but his white count went up despite this. 4. Continue n.p.o. and IV fluids until patient is starting to pass flatus. Jamel Maya MD Pager: [facility] [address] [place] [address], [facility] [address] [place] [address] Office:
--- NOTE | 2018-05-22 10:00 | CASEMGMT ---
AMANDA DEY Face to Face with patient for initial transition planning/care coordination assessment. RN CM introduced self and role at [facility]. Patient lying in bed, alert and oriented. Patient willing to participate in assessment and is able to answer all questions appropriately. Care providers, pharmacy, and demographics verified. See link attached. Patient wishes to discharge home, denies need for home health at this time. Patient states he has no further needs or concerns at this time. CM to follow for discharge planning needs that may arise. Disposition Plan: Patient to discharge home with family support and follow-up plans in place. Irais LEZAMA, RN, CM
[2018-05-22] MEDS: Ondansetron 4 MG/2 ML Vial IV (13:40)
[2018-05-22 13:44] VITALS: BP 118/69; PULSE 93; RESP 18; TEMP 37.4; O2SAT 92
[2018-05-22 14:45] LABS: Pathologist Review Reviewed
--- NOTE | 2018-05-22 18:34 | PCM.PN.HOSP ---
Patient Problems: Active and Suspected Problems (Last Reviewed 05/20/18 @ 10:43 by Gaston Tolbert MD) Idiopathic pancreatitis (Acute) Acute on recurrent pancreatitis (Acute) Subjective: Patient was seen and examined. He feels well. He rates his pain as 2-3 out of 10. Denies any fever or chills or nausea or vomiting. Yet to pass gas or move his bowels. Objective: General: Alert, Oriented x3, Cooperative HEENT: Atraumatic, PERRLA, EOMI, Normocephalic Neck: Supple, No JVD, Negative Carotid Bruits Lungs: Clear to auscultation, Normal air movement, Diminished Cardiovascular: Regular rate, Normal S1, Normal S2, No murmurs Abdomen: Bowel Sounds hypoactive, Soft, left lower quadrant tenderness with deep palpation and otherwise belly soft, nontender, no guarding Extremities: Capillary Refill Less than 3 Seconds, Edema Skin: No rashes, No breakdown Musculoskeletal: No Tenderness to Palpation of Joints or Extremities Neurological: Cranial nerves II-XII grossly intact Psych/Mental Status: Normal Affect, Appropriate Vitals/I&O's: Vital Signs Temp Pulse Resp BP Pulse Ox 99.4 F H 93 18 118/69 92 05/22/18 13:44 05/22/18 13:44 05/22/18 13:44 05/22/18 13:44 05/22/18 13:44 Oxygen Delivery Method Room Air Weight: 111.4 kg Body Mass Index (BMI) 34.2 Intake and Output for Last 24 Hours 05/20/18 05/21/18 05/22/18 23:59 23:59 23:59 Intake Total 1378 / 1378 2412 / 2412 3705 / 3705 Output Total 1300 / 1300 1525 / 1525 Balance 1378 / 1378 1112 / 1112 2180 / 2180 Laboratory Results 05/21/18 06:00: Diff Path Review Reviewed 05/22/18 06:06: Sodium 134 L, Potassium 3.6, Chloride 101, Carbon Dioxide 22.0, Anion Gap 11, BUN 14, Creatinine 0.79, Estim Creat Clear Calc 100.61, Est GFR (MDRD) Af Amer 127, Est GFR (MDRD) Non-Af 105, BUN/Creatinine Ratio 17.8, Glucose 87, Calcium 8.1 L, Total Bilirubin 2.20 H, Direct Bilirubin 0.76 H, AST 21, ALT 36, Alkaline Phosphatase 120 H, Total Protein 6.8, Albumin 2.4 L, Globulin 4.4 H, Lipase 194 05/22/18 06:06: WBC 20.1 H, RBC 4.34 L, Hgb 13.6, Hct 40.0, MCV 92.2, MCH 31.3, MCHC 34.0, RDW 13.5, RDW Differential 45.0 H, Plt Count 239, MPV 9.7, Immature Gran % (Auto) 0.300, Neut % (Auto) 75.5 H, Lymph % (Auto) 8.5 L, [place] % (Auto) 14.7 H, Eos % (Auto) 0.8, Baso % (Auto) 0.2, Absolute Neuts (auto) 15.2 H, Absolute Lymphs (auto) 1.72, Total Counted Not Reportable, Differential Comment COMEMNT, Diff Path Review May foll Current Medications Albuterol Sulfate (Ventolin Aerosols) 2.5 mg INHALATION Q4H PRN PRN Reason: shortness of breath/wheezing Enoxaparin Sodium (Lovenox) 40 mg SC DAILY@1000 [facility] Last Admin: 05/22/18 07:48 Dose: 40 mg Fentanyl (Duragesic Patch) 50 mcg TRANSDERM. Q3D [facility] Last Admin: 05/21/18 16:16 Dose: 50 mcg Hydromorphone HCl (Dilaudid Inj) 2 mg IV Q3H PRN PRN PRN Reason: SEVERE PAIN (6-10/10) Last Admin: 05/22/18 13:40 Dose: 2 mg Hydromorphone HCl (Dilaudid Inj) 1 mg IV Q3H PRN PRN PRN Reason: Mod Pain Last Admin: 05/21/18 07:42 Dose: 1 mg Pantoprazole Sodium 40 mg/ (Sodium Chloride) 110 mls @ 330 mls/hr IV Q24 [facility] Last Admin: 05/22/18 07:48 Dose: 330 mls/hr Sodium Chloride () 1,000 mls @ 150 mls/hr IV .Q6H40M [facility] Last Admin: 05/22/18 17:19 Dose: 150 mls/hr Piperacillin Sod/Tazobactam Sod (Zosyn) 3.375 gm in 50 mls @ 12.5 mls/hr IV Q8 [facility] Last Admin: 05/22/18 13:40 Dose: 12.5 mls/hr Labetalol HCl (Trandate) 10 mg IV Q4H PRN PRN PRN Reason: SBP>180 mmhg Magnesium Hydroxide (Milk Of Magnesia) 30 ml PO DAILY PRN PRN PRN Reason: Constipation Ondansetron HCl (Zofran) 4 mg IV Q6H PRN PRN PRN Reason: NAUSEA Last Admin: 05/22/18 13:40 Dose: 4 mg Promethazine HCl (Phenergan) 12.5 mg IV Q6H PRN PRN PRN Reason: NAUSEA/VOMITING Last Admin: 05/22/18 00:52 Dose: 12.5 mg Sodium Chloride () 5 - 30 ml IV UD PRN PRN Reason: SALINE FLUSH Last Admin: 05/21/18 16:44 Dose: 10 ml Medical Necessity - Tobacco Use Smoking Status: Former smoker Tobacco Use: Cigarettes Assessment/Plan All Active Problems (Last Reviewed 05/20/18 @ 10:43 by Gaston Tolbert MD) Choledocholithiasis (Acute) Transaminitis (Acute) Obstructive jaundice (Acute) Idiopathic pancreatitis (Acute) Acute on recurrent pancreatitis (Acute) CAP (community acquired pneumonia) (Resolved) Abdominal hernia (Resolved) History of bowel resection (Resolved) History of cholecystectomy (Resolved) History of appendectomy (Resolved) Acute bronchitis (Resolved) 82-year-old male with past medical history of Crohn's disease and pancreatitis, recently had ERCP with sphincterectomy and bile duct stent in, discharged on 05/19/2018 who was admitted on 05/20/2018 worsening abdominal pain. 1. Acute on recurrent pancreatitis, history of ERCP, CT scan of the abdomen and pelvis ?2 shows common bile duct stent in stable position, slight elevation in leukocytosis with elevation in LFTs, no fever, will continue to monitor and continue conservative management, general surgery consulted and following 2. Ileus, likely related to pancreatitis, being managed conservatively with bowel rest, general surgery following, will continue to follow 3. History of Crohn's disease status post multiple bowel surgeries 4. Hypertension, fairly controlled, off home meds on prn meds 5. GERD, on PPI 6. DVT prophylaxis with Lovenox subcu Code Visit Inpatient E&M: 28456 Subs Hosp L2
--- NOTE | 2018-05-22 18:50 | PN_ITS ---
Patient Problems: Active and Suspected Problems (Last Reviewed 05/20/18 @ 10:43 by Gaston Tolbert MD) Idiopathic pancreatitis (Acute) Acute on recurrent pancreatitis (Acute) Subjective: Patient was seen and examined. He feels well. He rates his pain as 2-3 out of 10. Denies any fever or chills or nausea or vomiting. Yet to pass gas or move his bowels. Objective: General: Alert, Oriented x3, Cooperative HEENT: Atraumatic, PERRLA, EOMI, Normocephalic Neck: Supple, No JVD, Negative Carotid Bruits Lungs: Clear to auscultation, Normal air movement, Diminished Cardiovascular: Regular rate, Normal S1, Normal S2, No murmurs Abdomen: Bowel Sounds hypoactive, Soft, left lower quadrant tenderness with deep palpation and otherwise belly soft, nontender, no guarding Extremities: Capillary Refill Less than 3 Seconds, Edema Skin: No rashes, No breakdown Musculoskeletal: No Tenderness to Palpation of Joints or Extremities Neurological: Cranial nerves II-XII grossly intact Psych/Mental Status: Normal Affect, Appropriate Vitals/I&O's: Vital Signs Temp Pulse Resp BP Pulse Ox 99.4 F H 93 18 118/69 92 05/22/18 13:44 05/22/18 13:44 05/22/18 13:44 05/22/18 13:44 05/22/18 13:44 Oxygen Delivery Method Room Air Weight: 111.4 kg Body Mass Index (BMI) 34.2 Intake and Output for Last 24 Hours 05/20/18 05/21/18 05/22/18 23:59 23:59 23:59 Intake Total 1378 / 1378 2412 / 2412 3705 / 3705 Output Total 1300 / 1300 1525 / 1525 Balance 1378 / 1378 1112 / 1112 2180 / 2180 Laboratory Results 05/21/18 06:00: Diff Path Review Reviewed 05/22/18 06:06: Sodium 134 L, Potassium 3.6, Chloride 101, Carbon Dioxide 22.0, Anion Gap 11, BUN 14, Creatinine 0.79, Estim Creat Clear Calc 100.61, Est GFR ( MDRD) Af Amer 127, Est GFR (MDRD) Non-Af 105, BUN/Creatinine Ratio 17.8, Glucose 87, Calcium 8.1 L, Total Bilirubin 2.20 H, Direct Bilirubin 0.76 H, AST 21, ALT 36, Alkaline Phosphatase 120 H, Total Protein 6.8, Albumin 2.4 L, Globulin 4.4 H, Lipase 194 05/22/18 06:06: WBC 20.1 H, RBC 4.34 L, Hgb 13.6, Hct 40.0, MCV 92.2, MCH 31.3, MCHC 34.0, RDW 13.5, RDW Differential 45.0 H, Plt Count 239, MPV 9.7, Immature Gran % (Auto) 0.300, Neut % (Auto) 75.5 H, Lymph % (Auto) 8.5 L, [place] % (Auto) 14.7 H, Eos % (Auto) 0.8, Baso % (Auto) 0.2, Absolute Neuts (auto) 15.2 H, Absolute Lymphs (auto) 1.72, Total Counted Not Reportable, Differential Comment COMEMNT, Diff Path Review May foll Current Medications Albuterol Sulfate (Ventolin Aerosols) 2.5 mg INHALATION Q4H PRN PRN Reason: shortness of breath/wheezing Enoxaparin Sodium (Lovenox) 40 mg SC DAILY@1000 [facility] Last Admin: 05/22/18 07:48 Dose: 40 mg Fentanyl (Duragesic Patch) 50 mcg TRANSDERM. Q3D [facility] Last Admin: 05/21/18 16:16 Dose: 50 mcg Hydromorphone HCl (Dilaudid Inj) 2 mg IV Q3H PRN PRN PRN Reason: SEVERE PAIN (6-10/10) Last Admin: 05/22/18 13:40 Dose: 2 mg Hydromorphone HCl (Dilaudid Inj) 1 mg IV Q3H PRN PRN PRN Reason: Mod Pain Last Admin: 05/21/18 07:42 Dose: 1 mg Pantoprazole Sodium 40 mg/ (Sodium Chloride) 110 mls @ 330 mls/hr IV Q24 [facility] Last Admin: 05/22/18 07:48 Dose: 330 mls/hr Sodium Chloride () 1,000 mls @ 150 mls/hr IV .Q6H40M [facility] Last Admin: 05/22/18 17:19 Dose: 150 mls/hr Piperacillin Sod/Tazobactam Sod (Zosyn) 3.375 gm in 50 mls @ 12.5 mls/hr IV Q8 [facility] Last Admin: 05/22/18 13:40 Dose: 12.5 mls/hr Labetalol HCl (Trandate) 10 mg IV Q4H PRN PRN PRN Reason: SBP>180 mmhg Magnesium Hydroxide (Milk Of Magnesia) 30 ml PO DAILY PRN PRN PRN Reason: Constipation Ondansetron HCl (Zofran) 4 mg IV Q6H PRN PRN PRN Reason: NAUSEA Last Admin: 05/22/18 13:40 Dose: 4 mg Promethazine HCl (Phenergan) 12.5 mg IV Q6H PRN PRN PRN Reason: NAUSEA/VOMITING Last Admin: 05/22/18 00:52 Dose: 12.5 mg Sodium Chloride () 5 - 30 ml IV UD PRN PRN Reason: SALINE FLUSH Last Admin: 05/21/18 16:44 Dose: 10 ml Medical Necessity - Tobacco Use Smoking Status: Former smoker Tobacco Use: Cigarettes Assessment/Plan All Active Problems (Last Reviewed 05/20/18 @ 10:43 by Gaston Tolbert MD) Choledocholithiasis (Acute) Transaminitis (Acute) Obstructive jaundice (Acute) Idiopathic pancreatitis (Acute) Acute on recurrent pancreatitis (Acute) CAP (community acquired pneumonia) (Resolved) Abdominal hernia (Resolved) History of bowel resection (Resolved) History of cholecystectomy (Resolved) History of appendectomy (Resolved) Acute bronchitis (Resolved) 82-year-old male with past medical history of Crohn's disease and pancreatitis, recently had ERCP with sphincterectomy and bile duct stent in, discharged on who was admitted on 05/20/2018 worsening abdominal pain. 1. Acute on recurrent pancreatitis, history of ERCP, CT scan of the abdomen and pelvis ?2 shows common bile duct stent in stable position, slight elevation in leukocytosis with elevation in LFTs, no fever, will continue to monitor and continue conservative management, general surgery consulted and following 2. Ileus, likely related to pancreatitis, being managed conservatively with bowel rest, general surgery following, will continue to follow 3. History of Crohn's disease status post multiple bowel surgeries 4. Hypertension, fairly controlled, off home meds on prn meds 5. GERD, on PPI 6. DVT prophylaxis with Lovenox subcu Code Visit Inpatient E&M: 95049 Subs Hosp L2
[2018-05-22 20:25] VITALS: O2SAT 94
[2018-05-22 20:27] VITALS: BP 150/83; PULSE 94; RESP 19; TEMP 37.2; O2SAT 94
[2018-05-23 04:28] VITALS: BP 155/78; PULSE 84; RESP 20; TEMP 36.8; O2SAT 95
[2018-05-23] MEDS: Piperacil/Tazobactam 3.375 GM/50 ML ML IV ×3 (05:10→21:30)
[2018-05-23] MEDS: HYDROmorphone 1 MG/ML Syringe 2 MG IV ×3 (05:10→18:19)
[2018-05-23] MEDS: Ondansetron 4 MG/2 ML Vial IV (05:19)
[2018-05-23] MEDS: 0.9% Normal Saline 1,000 ML 150 ML IV (06:59)
[2018-05-23 07:41] LABS: Absolute Lymphocyte Count 1.77 X10^3/ul (0.83-4.51); Absolute Neutrophil Count 8.1 X10^3/uL (2.0-7.7); Basophil# 0.04 X10^3/uL; Basophil% 0.3 % (0-1); Differential Indicated SCAN CRITERIA MET; Eosinophil# 0.42 X10^3/uL; Eosinophils% 3.5 % (0-5); Hematocrit 37.6 % (40-54); Hemoglobin 12.7 g/dl (13.0-16.5); Lymphocyte # 1.77 X10^3/ul (4.0); Lymphocyte % 14.6 % (19-41); Mean Corp Hgb Conc 33.8 g/gl (32-36); Mean Corpuscular Hgb 30.8 pg (27.0-32.0); Mean Corpuscular Volume 91.3 fL (80-94); Mean Platelet Vol. 9.2 fl (6.2-12.0); Monocyte# 1.68 X10^3/uL; Monocyte% 13.9 % (0-10); Neutrophil # 8.08 X10^3/uL (2.7-7.7); Neutrophil % 66.9 % (47-70); POSITIVE COUNT NO; POSITIVE DIFFERENTIAL YES; POSITIVE MORPHOLOGY NO; Platelet Count 252 K/mm3 (150-450); RBC Distribution Width CV 13.2 % (11.6-14.6); RBC Distribution Width SD 43.9 fl (35.1-43.9); Red Blood Count 4.12 M/mm3 (4.6-6.2); White Blood Count 12.1 K/mm3 (4.4-11.0)
[2018-05-23 07:59] LABS: AST(SGOT) 14 U/L (15-37); Alanine Aminotransfer ALT/SGPT 28 U/L (16-61); Albumin, Serum 2.3 g/dL (3.2-5.0); Alkaline Phosphatase 120 U/L (45-117); Anion Gap 12 (5-15); BUN 16 mg/dL (7-18); BUN/Creat Ratio 21.3 RATIO (10-20); Bilirubin, Direct 0.85 mg/dL (0.00-0.30); Calcium,Total 8.2 mg/dL (8.5-10.1); Chloride 102 mmol/L (98-107); Creatinine, Serum 0.75 mg/dL (0.70-1.30); EST Glomerular Filtration Rate 111 mL/min (>60); Est Glom Filt Rate - Afr Amer 134 mL/min (>60); Estimated Creatinine Clearance 105.98 ml/min; Globulin 4.6 g/dL (2.2-4.2); Glucose 80 mg/dL (74-106); Potassium 3.6 mmol/L (3.5-5.1); Protein, Total 6.9 g/dL (6.4-8.2); Sodium Level 137 mmol/L (136-145)
[2018-05-23 08:14] VITALS: BP 132/83; PULSE 77; RESP 18; TEMP 36.9; O2SAT 98
[2018-05-23] MEDS: Enoxaparin 40 MG/0.4 ML Syringe SC (08:16)
--- NOTE | 2018-05-23 09:43 | PN.SURG_ITS ---
Patient Problems: Active and Suspected Problems (Last Reviewed 05/20/18 @ 10:43 by Gaston Tolbert MD) Idiopathic pancreatitis (Acute) Acute on recurrent pancreatitis (Acute) Subjective: The patient reports he is not passing any flatus. He has no nausea vomiting. He said his pain is improved but he did have some lower abdominal mild pain earlier today. - Physical Exam General: Alert, Oriented x3, Cooperative HEENT: Atraumatic Neck: No JVD Lungs: Normal air movement Cardiovascular: Regular rate, Regular Rhythm Abdomen: Soft, Non Tender, Non-Distended Neurological: Cranial nerves II-XII grossly intact Psych/Mental Status: Normal Affect Vital Signs Temp Pulse Resp BP Pulse Ox 98.5 F 77 18 132/83 H 98 05/23/18 08:14 05/23/18 08:14 05/23/18 08:14 05/23/18 08:14 05/23/18 08:14 Oxygen Delivery Method Room Air Weight: 245 lb 9.519 oz Body Mass Index (BMI) 34.2 Intake and Output for Last 24 Hours 05/21/18 05/22/18 05/23/18 23:59 23:59 23:59 Intake Total 2412 / 2412 3705 / 3705 1899 / 1899 Output Total 1300 / 1300 1525 / 1525 1900 / 1900 Balance 1112 / 1112 2180 / 2180 -1 / -1 Laboratory Tests Past 24 Hrs 05/21/18 05/22/18 05/23/18 06:00 06:06 06:57 WBC 12.1 H RBC 4.12 L Hgb 12.7 L Hct 37.6 L MCV 91.3 MCH 30.8 MCHC 33.8 RDW 13.2 RDW Differential 43.9 Plt Count 252 MPV 9.2 Immature Gran % (Auto) 0.800 Neut % (Auto) 66.9 Lymph % (Auto) 14.6 L [place] % (Auto) 13.9 H Eos % (Auto) 3.5 Baso % (Auto) 0.3 Absolute Neuts (auto) 8.1 H Absolute Lymphs (auto) 1.77 Total Counted Not Reportable Not Reportable Differential Comment COMEMNT COMMENT Diff Path Review Reviewed May foll Sodium Potassium Chloride Carbon Dioxide Anion Gap BUN Creatinine Estim Creat Clear Calc Est GFR (MDRD) Af Amer Est GFR (MDRD) Non-Af BUN/Creatinine Ratio Glucose Calcium Total Bilirubin Direct Bilirubin AST ALT Alkaline Phosphatase Total Protein Albumin Globulin 05/23/18 06:57 WBC RBC Hgb Hct MCV MCH MCHC RDW RDW Differential Plt Count MPV Immature Gran % (Auto) Neut % (Auto) Lymph % (Auto) [place] % (Auto) Eos % (Auto) Baso % (Auto) Absolute Neuts (auto) Absolute Lymphs (auto) Total Counted Differential Comment Diff Path Review Sodium 137 Potassium 3.6 Chloride 102 Carbon Dioxide 23.0 Anion Gap 12 BUN 16 Creatinine 0.75 Estim Creat Clear Calc 105.98 Est GFR (MDRD) Af Amer 134 Est GFR (MDRD) Non-Af 111 BUN/Creatinine Ratio 21.3 H Glucose 80 Calcium 8.2 L Total Bilirubin 1.90 H Direct Bilirubin 0.85 H AST 14 L ALT 28 Alkaline Phosphatase 120 H Total Protein 6.9 Albumin 2.3 L Globulin 4.6 H Medical Necessity - Tobacco Use Smoking Status: Former smoker Tobacco Use: Cigarettes Assessment/Plan All Active Problems (Last Reviewed 05/20/18 @ 10:43 by Gaston Tolbert MD) Choledocholithiasis (Acute) Transaminitis (Acute) Obstructive jaundice (Acute) Idiopathic pancreatitis (Acute) Acute on recurrent pancreatitis (Acute) CAP (community acquired pneumonia) (Resolved) Abdominal hernia (Resolved) History of bowel resection (Resolved) History of cholecystectomy (Resolved) History of appendectomy (Resolved) Acute bronchitis (Resolved) 62-year-old male with ileus 1. The patient's white blood cell count and bilirubin have improved today. He is not passing flatus. I believe he has an ileus or Crohn's flareup. I would recommend giving him his Humira today and he can start on a diet once he is passing flatus. I do not believe there is any surgical indication at this time. Jamel Maya MD Pager: [facility] [address] [place] [address], [address] [place] [address] Office:
[2018-05-23 10:35] LABS: Pathologist Review Reviewed
[2018-05-23 14:10] VITALS: BP 131/82; PULSE 86; RESP 18; TEMP 36.9; O2SAT 95
--- NOTE | 2018-05-23 18:09 | PCM.PN.HOSP ---
Patient Problems: Active and Suspected Problems (Last Reviewed 05/20/18 @ 10:43 by Gaston Tolbert MD) Idiopathic pancreatitis (Acute) Acute on recurrent pancreatitis (Acute) Subjective: Patient was seen and examined. He has not moved his bowels. Been ambulating. Belching+. Has some epigastric tenderness also. Vitals/I&O's: Vital Signs Temp Pulse Resp BP Pulse Ox 98.4 F 86 18 131/82 H 95 05/23/18 14:10 05/23/18 14:10 05/23/18 14:10 05/23/18 14:10 05/23/18 14:10 Oxygen Delivery Method Room Air Weight: 111.4 kg Body Mass Index (BMI) 34.2 Intake and Output for Last 24 Hours 05/21/18 05/22/18 05/23/18 23:59 23:59 23:59 Intake Total 2412 / 2412 3705 / 3705 3279 / 3279 Output Total 1300 / 1300 1525 / 1525 3375 / 3375 Balance 1112 / 1112 2180 / 2180 -96 / -96 General: Alert, Oriented x3, Cooperative, No apparent distress HEENT: Atraumatic, PERRLA, EOMI, Normocephalic Oral: Moist Mucosa Neck: Supple, No JVD, Negative Carotid Bruits Lungs: Clear to auscultation, Normal air movement Cardiovascular: Regular rate, Regular Rhythm, Normal S1, Normal S2, No murmurs Abdomen: Bowel Sounds Present - slightly hypoactive, Soft, Non-Distended, Tender - epigastric region Extremities: No edema, Capillary Refill Less than 3 Seconds Skin: No rashes, No breakdown Musculoskeletal: No Tenderness to Palpation of Joints or Extremities Lymphatic: No Cervical, Supraclavicular, or Inguinal Adenopathy Neurological: Cranial nerves II-XII grossly intact, Neuro grossly intact Psych/Mental Status: Normal Affect, Appropriate Laboratory Results 05/22/18 06:06: Diff Path Review Reviewed 05/23/18 06:57: WBC 12.1 H, RBC 4.12 L, Hgb 12.7 L, Hct 37.6 L, MCV 91.3, MCH 30.8, MCHC 33.8, RDW 13.2, RDW Differential 43.9, Plt Count 252, MPV 9.2, Immature Gran % (Auto) 0.800, Neut % (Auto) 66.9, Lymph % (Auto) 14.6 L, [place] % (Auto) 13.9 H, Eos % (Auto) 3.5, Baso % (Auto) 0.3, Absolute Neuts (auto) 8.1 H, Absolute Lymphs (auto) 1.77, Total Counted Not Reportable, Differential Comment COMMENT 05/23/18 06:57: Sodium 137, Potassium 3.6, Chloride 102, Carbon Dioxide 23.0, Anion Gap 12, BUN 16, Creatinine 0.75, Estim Creat Clear Calc 105.98, Est GFR (MDRD) Af Amer 134, Est GFR (MDRD) Non-Af 111, BUN/Creatinine Ratio 21.3 H, Glucose 80, Calcium 8.2 L, Total Bilirubin 1.90 H, Direct Bilirubin 0.85 H, AST 14 L, ALT 28, Alkaline Phosphatase 120 H, Total Protein 6.9, Albumin 2.3 L, Globulin 4.6 H Current Medications Adalimumab (Humira) 40 mg SQ Q14D [facility] Last Admin: 05/23/18 16:00 Dose: Not Given Albuterol Sulfate (Ventolin Aerosols) 2.5 mg INHALATION Q4H PRN PRN Reason: shortness of breath/wheezing Enoxaparin Sodium (Lovenox) 40 mg SC DAILY@1000 [facility] Last Admin: 05/23/18 08:16 Dose: 40 mg Fentanyl (Duragesic Patch) 50 mcg TRANSDERM. Q3D [facility] Last Admin: 05/23/18 16:38 Dose: 50 mcg Hydromorphone HCl (Dilaudid Inj) 2 mg IV Q3H PRN PRN PRN Reason: SEVERE PAIN (6-10/10) Last Admin: 05/23/18 13:16 Dose: 2 mg Hydromorphone HCl (Dilaudid Inj) 1 mg IV Q3H PRN PRN PRN Reason: Mod Pain Last Admin: 05/21/18 07:42 Dose: 1 mg Pantoprazole Sodium 40 mg/ (Sodium Chloride) 110 mls @ 330 mls/hr IV Q24 [facility] Last Admin: 05/23/18 08:17 Dose: 330 mls/hr Piperacillin Sod/Tazobactam Sod (Zosyn) 3.375 gm in 50 mls @ 12.5 mls/hr IV Q8 [facility] Last Admin: 05/23/18 13:16 Dose: 12.5 mls/hr Sodium Chloride () 1,000 mls @ 80 mls/hr IV .[id number] [facility] Labetalol HCl (Trandate) 10 mg IV Q4H PRN PRN PRN Reason: SBP>180 mmhg Magnesium Hydroxide (Milk Of Magnesia) 30 ml PO DAILY PRN PRN PRN Reason: Constipation Ondansetron HCl (Zofran) 4 mg IV Q6H PRN PRN PRN Reason: NAUSEA Last Admin: 05/23/18 05:19 Dose: 4 mg Promethazine HCl (Phenergan) 12.5 mg IV Q6H PRN PRN PRN Reason: NAUSEA/VOMITING Last Admin: 05/22/18 00:52 Dose: 12.5 mg Sodium Chloride () 5 - 30 ml IV UD PRN PRN Reason: SALINE FLUSH Last Admin: 05/21/18 16:44 Dose: 10 ml Medical Necessity - Tobacco Use Smoking Status: Former smoker Tobacco Use: Cigarettes Assessment/Plan All Active Problems (Last Reviewed 05/20/18 @ 10:43 by Gaston Tolbert MD) Choledocholithiasis (Acute) Transaminitis (Acute) Obstructive jaundice (Acute) Idiopathic pancreatitis (Acute) Acute on recurrent pancreatitis (Acute) CAP (community acquired pneumonia) (Resolved) Abdominal hernia (Resolved) History of bowel resection (Resolved) History of cholecystectomy (Resolved) History of appendectomy (Resolved) Acute bronchitis (Resolved) 82-year-old male with past medical history of Crohn's disease and pancreatitis, recently had ERCP with sphincterectomy and bile duct stent in, discharged on 05/19/2018 who was admitted on 05/20/2018 worsening abdominal pain. 1. Acute on recurrent pancreatitis, history of ERCP, CT scan of the abdomen and pelvis ?2 shows common bile duct stent in stable position, Leucocytosis and LFTs improving, except fro direct bilirubin, Will continue conservative management, general surgery following 2. Ileus, likely related to pancreatitis, being managed conservatively with bowel rest, persistent, will encourage early ambulation, bowel rest, reassess tomorrow. 3. History of Crohn's disease status post multiple bowel surgeries, restarted on Humira 4. Hypertension, fairly controlled, off home meds on prn meds 5. GERD, on PPI 6. DVT prophylaxis with Lovenox subcu Code Visit Inpatient E&M: 82611 Subs Hosp L2
--- NOTE | 2018-05-23 18:16 | PN_ITS ---
Patient Problems: Active and Suspected Problems (Last Reviewed 05/20/18 @ 10:43 by Gaston Tolbert MD) Idiopathic pancreatitis (Acute) Acute on recurrent pancreatitis (Acute) Subjective: Patient was seen and examined. He has not moved his bowels. Been ambulating. Belching+. Has some epigastric tenderness also. Vitals/I&O's: Vital Signs Temp Pulse Resp BP Pulse Ox 98.4 F 86 18 131/82 H 95 05/23/18 14:10 05/23/18 14:10 05/23/18 14:10 05/23/18 14:10 05/23/18 14:10 Oxygen Delivery Method Room Air Weight: 111.4 kg Body Mass Index (BMI) 34.2 Intake and Output for Last 24 Hours 05/21/18 05/22/18 05/23/18 23:59 23:59 23:59 Intake Total 2412 / 2412 3705 / 3705 3279 / 3279 Output Total 1300 / 1300 1525 / 1525 3375 / 3375 Balance 1112 / 1112 2180 / 2180 -96 / -96 General: Alert, Oriented x3, Cooperative, No apparent distress HEENT: Atraumatic, PERRLA, EOMI, Normocephalic Oral: Moist Mucosa Neck: Supple, No JVD, Negative Carotid Bruits Lungs: Clear to auscultation, Normal air movement Cardiovascular: Regular rate, Regular Rhythm, Normal S1, Normal S2, No murmurs Abdomen: Bowel Sounds Present - slightly hypoactive, Soft, Non-Distended, Tender - epigastric region Extremities: No edema, Capillary Refill Less than 3 Seconds Skin: No rashes, No breakdown Musculoskeletal: No Tenderness to Palpation of Joints or Extremities Lymphatic: No Cervical, Supraclavicular, or Inguinal Adenopathy Neurological: Cranial nerves II-XII grossly intact, Neuro grossly intact Psych/Mental Status: Normal Affect, Appropriate Laboratory Results 05/22/18 06:06: Diff Path Review Reviewed 05/23/18 06:57: WBC 12.1 H, RBC 4.12 L, Hgb 12.7 L, Hct 37.6 L, MCV 91.3, MCH 30.8, MCHC 33.8, RDW 13.2, RDW Differential 43.9, Plt Count 252, MPV 9.2, Immature Gran % (Auto) 0.800, Neut % (Auto) 66.9, Lymph % (Auto) 14.6 L, [place] % (Auto) 13.9 H, Eos % (Auto) 3.5, Baso % (Auto) 0.3, Absolute Neuts (auto) 8.1 H , Absolute Lymphs (auto) 1.77, Total Counted Not Reportable, Differential Comment COMMENT 05/23/18 06:57: Sodium 137, Potassium 3.6, Chloride 102, Carbon Dioxide 23.0, Anion Gap 12, BUN 16, Creatinine 0.75, Estim Creat Clear Calc 105.98, Est GFR ( MDRD) Af Amer 134, Est GFR (MDRD) Non-Af 111, BUN/Creatinine Ratio 21.3 H, Glucose 80, Calcium 8.2 L, Total Bilirubin 1.90 H, Direct Bilirubin 0.85 H, AST 14 L, ALT 28, Alkaline Phosphatase 120 H, Total Protein 6.9, Albumin 2.3 L, Globulin 4.6 H Current Medications Adalimumab (Humira) 40 mg SQ Q14D [facility] Last Admin: 05/23/18 16:00 Dose: Not Given Albuterol Sulfate (Ventolin Aerosols) 2.5 mg INHALATION Q4H PRN PRN Reason: shortness of breath/wheezing Enoxaparin Sodium (Lovenox) 40 mg SC DAILY@1000 [facility] Last Admin: 05/23/18 08:16 Dose: 40 mg Fentanyl (Duragesic Patch) 50 mcg TRANSDERM. Q3D [facility] Last Admin: 05/23/18 16:38 Dose: 50 mcg Hydromorphone HCl (Dilaudid Inj) 2 mg IV Q3H PRN PRN PRN Reason: SEVERE PAIN (6-10/10) Last Admin: 05/23/18 13:16 Dose: 2 mg Hydromorphone HCl (Dilaudid Inj) 1 mg IV Q3H PRN PRN PRN Reason: Mod Pain Last Admin: 05/21/18 07:42 Dose: 1 mg Pantoprazole Sodium 40 mg/ (Sodium Chloride) 110 mls @ 330 mls/hr IV Q24 [facility] Last Admin: 05/23/18 08:17 Dose: 330 mls/hr Piperacillin Sod/Tazobactam Sod (Zosyn) 3.375 gm in 50 mls @ 12.5 mls/hr IV Q8 [facility] Last Admin: 05/23/18 13:16 Dose: 12.5 mls/hr Sodium Chloride () 1,000 mls @ 80 mls/hr IV .[id number] [facility] Labetalol HCl (Trandate) 10 mg IV Q4H PRN PRN PRN Reason: SBP>180 mmhg Magnesium Hydroxide (Milk Of Magnesia) 30 ml PO DAILY PRN PRN PRN Reason: Constipation Ondansetron HCl (Zofran) 4 mg IV Q6H PRN PRN PRN Reason: NAUSEA Last Admin: 05/23/18 05:19 Dose: 4 mg Promethazine HCl (Phenergan) 12.5 mg IV Q6H PRN PRN PRN Reason: NAUSEA/VOMITING Last Admin: 05/22/18 00:52 Dose: 12.5 mg Sodium Chloride () 5 - 30 ml IV UD PRN PRN Reason: SALINE FLUSH Last Admin: 05/21/18 16:44 Dose: 10 ml Medical Necessity - Tobacco Use Smoking Status: Former smoker Tobacco Use: Cigarettes Assessment/Plan All Active Problems (Last Reviewed 05/20/18 @ 10:43 by Gaston Tolbert MD) Choledocholithiasis (Acute) Transaminitis (Acute) Obstructive jaundice (Acute) Idiopathic pancreatitis (Acute) Acute on recurrent pancreatitis (Acute) CAP (community acquired pneumonia) (Resolved) Abdominal hernia (Resolved) History of bowel resection (Resolved) History of cholecystectomy (Resolved) History of appendectomy (Resolved) Acute bronchitis (Resolved) 82-year-old male with past medical history of Crohn's disease and pancreatitis, recently had ERCP with sphincterectomy and bile duct stent in, discharged on who was admitted on 05/20/2018 worsening abdominal pain. 1. Acute on recurrent pancreatitis, history of ERCP, CT scan of the abdomen and pelvis ?2 shows common bile duct stent in stable position, Leucocytosis and LFTs improving, except fro direct bilirubin, Will continue conservative management, general surgery following 2. Ileus, likely related to pancreatitis, being managed conservatively with bowel rest, persistent, will encourage early ambulation, bowel rest, reassess tomorrow. 3. History of Crohn's disease status post multiple bowel surgeries, restarted on Humira 4. Hypertension, fairly controlled, off home meds on prn meds 5. GERD, on PPI 6. DVT prophylaxis with Lovenox subcu Code Visit Inpatient E&M: 81933 Subs Hosp L2
[2018-05-23] MEDS: 0.9% Normal Saline 1,000 ML 80 ML IV (18:17)
[2018-05-23 19:55] VITALS: BP 110/69; PULSE 80; RESP 18; TEMP 36.6; O2SAT 96
[2018-05-24 02:00] VITALS: BP 142/74; PULSE 71; RESP 18; TEMP 36.5; O2SAT 96
[2018-05-24] MEDS: Piperacil/Tazobactam 3.375 GM/50 ML ML IV ×3 (05:45→21:01)
[2018-05-24] MEDS: 0.9% Normal Saline 1,000 ML 80 ML IV (05:45)
[2018-05-24 06:54] LABS: Absolute Lymphocyte Count 1.63 X10^3/ul (0.83-4.51); Absolute Neutrophil Count 6.1 X10^3/uL (2.0-7.7); Basophil# 0.06 X10^3/uL; Basophil% 0.6 % (0-1); Eosinophil# 0.48 X10^3/uL; Hematocrit 37.3 % (40-54); Hemoglobin 12.9 g/dl (13.0-16.5); Lymphocyte # 1.63 X10^3/ul (4.0); Lymphocyte % 16.9 % (19-41); Mean Corp Hgb Conc 34.6 g/gl (32-36); Mean Corpuscular Hgb 31.6 pg (27.0-32.0); Mean Corpuscular Volume 91.4 fL (80-94); Mean Platelet Vol. 9.3 fl (6.2-12.0); Monocyte# 1.25 X10^3/uL; Monocyte% 12.9 % (0-10); Neutrophil # 6.07 X10^3/uL (2.7-7.7); Neutrophil % 62.8 % (47-70); Platelet Count 285 K/mm3 (150-450); RBC Distribution Width CV 12.5 % (11.6-14.6); RBC Distribution Width SD 41.6 fl (35.1-43.9); Red Blood Count 4.08 M/mm3 (4.6-6.2); White Blood Count 9.7 K/mm3 (4.4-11.0)
[2018-05-24 07:10] LABS: POSITIVE COUNT NO; POSITIVE DIFFERENTIAL NO; POSITIVE MORPHOLOGY NO
[2018-05-24 07:15] LABS: ALB/GLOB Ratio 0.5 RATIO (0.9-2.4); AST(SGOT) 17 U/L (15-37); Alanine Aminotransfer ALT/SGPT 24 U/L (16-61); Albumin, Serum 2.4 g/dL (3.2-5.0); Alkaline Phosphatase 105 U/L (45-117); Anion Gap 11 (5-15); BUN 16 mg/dL (7-18); BUN/Creat Ratio 21.2 RATIO (10-20); Calcium,Total 8.4 mg/dL (8.5-10.1); Chloride 103 mmol/L (98-107); Creatinine, Serum 0.75 mg/dL (0.70-1.30); EST Glomerular Filtration Rate 111 mL/min (>60); Est Glom Filt Rate - Afr Amer 134 mL/min (>60); Estimated Creatinine Clearance 105.98 ml/min; Globulin 4.4 g/dL (2.2-4.2); Glucose 62 mg/dL (74-106); Potassium 3.4 mmol/L (3.5-5.1); Protein, Total 6.8 g/dL (6.4-8.2); Sodium Level 137 mmol/L (136-145)
--- NOTE | 2018-05-24 08:35 | PN.SURG_ITS ---
Patient Problems: Active and Suspected Problems (Last Reviewed 05/20/18 @ 10:43 by Gaston Tolbert MD) Idiopathic pancreatitis (Acute) Acute on recurrent pancreatitis (Acute) Subjective: Patient is not having any abdominal pain today. He is passing flatus. He is not having any nausea or vomiting. - Physical Exam General: Alert, Oriented x3, Cooperative Neck: No JVD Lungs: Normal air movement Cardiovascular: Regular rate, Regular Rhythm Abdomen: Soft, Non Tender, Non-Distended Vital Signs Temp Pulse Resp BP Pulse Ox 97.7 F L 71 18 142/74 H 96 05/24/18 02:00 05/24/18 02:00 05/24/18 02:00 05/24/18 02:00 05/24/18 02:00 Oxygen Delivery Method Room Air Weight: 245 lb 9.519 oz Body Mass Index (BMI) 34.2 Intake and Output for Last 24 Hours 05/22/18 05/23/18 05/24/18 23:59 23:59 23:59 Intake Total 3705 / 3705 3956 / 3956 556 / 556 Output Total 1525 / 1525 3675 / 3675 900 / 900 Balance 2180 / 2180 281 / 281 -344 / -344 Laboratory Tests Past 24 Hrs 05/22/18 05/23/18 05/24/18 06:06 06:57 05:35 WBC 9.7 RBC 4.08 L Hgb 12.9 L Hct 37.3 L MCV 91.4 MCH 31.6 MCHC 34.6 RDW 12.5 RDW Differential 41.6 Plt Count 285 MPV 9.3 Immature Gran % (Auto) 1.800 H Neut % (Auto) 62.8 Lymph % (Auto) 16.9 L [place] % (Auto) 12.9 H Eos % (Auto) 5.0 Baso % (Auto) 0.6 Absolute Neuts (auto) 6.1 Absolute Lymphs (auto) 1.63 Total Counted Not Reportable Not Reportable Differential Comment COMMENT Diff Path Review Reviewed Sodium Potassium Chloride Carbon Dioxide Anion Gap BUN Creatinine Estim Creat Clear Calc Est GFR (MDRD) Af Amer Est GFR (MDRD) Non-Af BUN/Creatinine Ratio Glucose Calcium Total Bilirubin AST ALT Alkaline Phosphatase Total Protein Albumin Globulin Albumin/Globulin Ratio 05/24/18 05:35 WBC RBC Hgb Hct MCV MCH MCHC RDW RDW Differential Plt Count MPV Immature Gran % (Auto) Neut % (Auto) Lymph % (Auto) [place] % (Auto) Eos % (Auto) Baso % (Auto) Absolute Neuts (auto) Absolute Lymphs (auto) Total Counted Differential Comment Diff Path Review Sodium 137 Potassium 3.4 L Chloride 103 Carbon Dioxide 23.0 Anion Gap 11 BUN 16 Creatinine 0.75 Estim Creat Clear Calc 105.98 Est GFR (MDRD) Af Amer 134 Est GFR (MDRD) Non-Af 111 BUN/Creatinine Ratio 21.2 H Glucose 62 L Calcium 8.4 L Total Bilirubin 1.40 H AST 17 ALT 24 Alkaline Phosphatase 105 Total Protein 6.8 Albumin 2.4 L Globulin 4.4 H Albumin/Globulin Ratio 0.5 L Medical Necessity - Tobacco Use Smoking Status: Former smoker Tobacco Use: Cigarettes Assessment/Plan All Active Problems (Last Reviewed 05/20/18 @ 10:43 by Gaston Tolbert MD) Choledocholithiasis (Acute) Transaminitis (Acute) Obstructive jaundice (Acute) Idiopathic pancreatitis (Acute) Acute on recurrent pancreatitis (Acute) CAP (community acquired pneumonia) (Resolved) Abdominal hernia (Resolved) History of bowel resection (Resolved) History of cholecystectomy (Resolved) History of appendectomy (Resolved) Acute bronchitis (Resolved) 62-year-old male with ileus and Crohn's 1. Patient was given his Humira yesterday. His white count has returned to normal and his LFTs are decreasing. He is having flatus. I will start him on a clear liquid diet and stop his IV fluids. He can advance as tolerated. I will also resume his Creon. 2. Once he is tolerating a diet he may be discharged home in follow-up for ERCP with spyglass when my office schedules it. Jamel Maya MD Pager: [facility] [address] [place] [address], [address] [place] [address] Office:
[2018-05-24 09:48] VITALS: BP 145/76; PULSE 77; RESP 16; TEMP 36.8; O2SAT 96
[2018-05-24] MEDS: Pantoprazole Sodium 40 MG Tablet PO (10:02)
[2018-05-24] MEDS: Enoxaparin 40 MG/0.4 ML Syringe SC (10:02)
[2018-05-24 13:59] VITALS: BP 117/63; PULSE 77; RESP 16; TEMP 37.2; O2SAT 95
--- NOTE | 2018-05-24 16:59 | PCM.PN.HOSP ---
Patient Problems: Active and Suspected Problems (Last Reviewed 05/20/18 @ 10:43 by Gaston Tolbert MD) Idiopathic pancreatitis (Acute) Acute on recurrent pancreatitis (Acute) Subjective: Patient was seen and examined. He is been passing flatus by yet to move his bowels. Diet has been advanced and is tolerating it. Denies any abdominal pain no nausea or vomiting Objective: Physical exam: General: Alert, Oriented x3, Cooperative, No apparent distress HEENT: Atraumatic, PERRLA, EOMI, Normocephalic Oral: Moist Mucosa Neck: Supple, No JVD, Negative Carotid Bruits Lungs: Clear to auscultation, Normal air movement Cardiovascular: Regular rate, Regular Rhythm, Normal S1, Normal S2, No murmurs Abdomen: Bowel Sounds Present, Soft, Non-Distended, non-tender Extremities: No edema, Capillary Refill Less than 3 Seconds Skin: No rashes, No breakdown Musculoskeletal: No Tenderness to Palpation of Joints or Extremities Lymphatic: No Cervical, Supraclavicular, or Inguinal Adenopathy Neurological: Cranial nerves II-XII grossly intact, Neuro grossly intact Psych/Mental Status: Normal Affect, Appropriate Vitals/I&O's: Vital Signs Temp Pulse Resp BP Pulse Ox 98.9 F 77 16 117/63 95 05/24/18 13:59 05/24/18 13:59 05/24/18 13:59 05/24/18 13:59 05/24/18 13:59 Oxygen Delivery Method Room Air Weight: 111.4 kg Body Mass Index (BMI) 34.2 Intake and Output for Last 24 Hours 05/22/18 05/23/18 05/24/18 23:59 23:59 23:59 Intake Total 3705 / 3705 3956 / 3956 556 / 556 Output Total 1525 / 1525 3675 / 3675 900 / 900 Balance 2180 / 2180 281 / 281 -344 / -344 Laboratory Results 05/24/18 05:35: WBC 9.7, RBC 4.08 L, Hgb 12.9 L, Hct 37.3 L, MCV 91.4, MCH 31.6, MCHC 34.6, RDW 12.5, RDW Differential 41.6, Plt Count 285, MPV 9.3, Immature Gran % (Auto) 1.800 H, Neut % (Auto) 62.8, Lymph % (Auto) 16.9 L, [place] % (Auto) 12.9 H, Eos % (Auto) 5.0, Baso % (Auto) 0.6, Absolute Neuts (auto) 6.1, Absolute Lymphs (auto) 1.63, Total Counted Not Reportable 05/24/18 05:35: Sodium 137, Potassium 3.4 L, Chloride 103, Carbon Dioxide 23.0, Anion Gap 11, BUN 16, Creatinine 0.75, Estim Creat Clear Calc 105.98, Est GFR (MDRD) Af Amer 134, Est GFR (MDRD) Non-Af 111, BUN/Creatinine Ratio 21.2 H, Glucose 62 L, Calcium 8.4 L, Total Bilirubin 1.40 H, AST 17, ALT 24, Alkaline Phosphatase 105, Total Protein 6.8, Albumin 2.4 L, Globulin 4.4 H, Albumin/Globulin Ratio 0.5 L Current Medications Adalimumab (Humira) 40 mg SQ Q14D [facility] Last Admin: 05/23/18 16:00 Dose: Not Given Albuterol Sulfate (Ventolin Aerosols) 2.5 mg INHALATION Q4H PRN PRN Reason: shortness of breath/wheezing Enoxaparin Sodium (Lovenox) 40 mg SC DAILY@1000 [facility] Last Admin: 05/24/18 10:02 Dose: 40 mg Fentanyl (Duragesic Patch) 50 mcg TRANSDERM. Q3D [facility] Last Admin: 05/23/18 16:38 Dose: 50 mcg Hydromorphone HCl (Dilaudid Inj) 2 mg IV Q3H PRN PRN PRN Reason: SEVERE PAIN (6-10/10) Last Admin: 05/23/18 18:19 Dose: 2 mg Hydromorphone HCl (Dilaudid Inj) 1 mg IV Q3H PRN PRN PRN Reason: Mod Pain Last Admin: 05/21/18 07:42 Dose: 1 mg Piperacillin Sod/Tazobactam Sod (Zosyn) 3.375 gm in 50 mls @ 12.5 mls/hr IV Q8 [facility] Last Admin: 05/24/18 14:03 Dose: 12.5 mls/hr Labetalol HCl (Trandate) 10 mg IV Q4H PRN PRN PRN Reason: SBP>180 mmhg Magnesium Hydroxide (Milk Of Magnesia) 30 ml PO DAILY PRN PRN PRN Reason: Constipation Ondansetron HCl (Zofran) 4 mg IV Q6H PRN PRN PRN Reason: NAUSEA Last Admin: 05/23/18 05:19 Dose: 4 mg Pancrelipase (Creon Dr 12,000 Unit Capsule) 3 capsule PO TIDCM [facility] Last Admin: 05/24/18 16:23 Dose: 3 capsule Pantoprazole Sodium (Protonix) 40 mg PO DAILY [facility] Last Admin: 05/24/18 10:02 Dose: 40 mg Promethazine HCl (Phenergan) 12.5 mg IV Q6H PRN PRN PRN Reason: NAUSEA/VOMITING Last Admin: 05/22/18 00:52 Dose: 12.5 mg Sodium Chloride () 5 - 30 ml IV UD PRN PRN Reason: SALINE FLUSH Last Admin: 05/21/18 16:44 Dose: 10 ml Medical Necessity - Tobacco Use Smoking Status: Former smoker Tobacco Use: Cigarettes Assessment/Plan All Active Problems (Last Reviewed 05/20/18 @ 10:43 by Gaston Tolbert MD) Choledocholithiasis (Acute) Transaminitis (Acute) Obstructive jaundice (Acute) Idiopathic pancreatitis (Acute) Acute on recurrent pancreatitis (Acute) CAP (community acquired pneumonia) (Resolved) Abdominal hernia (Resolved) History of bowel resection (Resolved) History of cholecystectomy (Resolved) History of appendectomy (Resolved) Acute bronchitis (Resolved) 62-year-old male with past medical history of Crohn's disease and pancreatitis, s/p ERCP with sphincterectomy and bile duct stent, discharged on 05/19/2018 who was re-admitted on 05/20/2018 with worsening abdominal pain. 1. Acute on chronic, recurrent pancreatitis, history of recent ERCP, CT scan of the abdomen and pelvis ?2 shows common bile duct stent in stable position, Leucocytosis resolved, LFTs resolving, except for direct bilirubin, Will continue conservative management, general surgery following 2. Ileus, likely related to pancreatitis, resolving, on advanced diet 3. Leukocytosis, concerning for possible cholangitis, present on admission, Less likely to be cholangitis, patient has improved has been on IV Zosyn since 05/21/2018(day 4), will stop antibiotics tomorrow(day 5) 4. History of Crohn's disease status post multiple bowel surgeries, restarted on Humira 5. Hypertension, fairly controlled, off home meds on prn meds 6. GERD, on PPI 7. DVT prophylaxis with Lovenox subcu Code Visit Inpatient E&M: 94600 Subs Hosp L2
--- NOTE | 2018-05-24 17:23 | PN_ITS ---
Patient Problems: Active and Suspected Problems (Last Reviewed 05/20/18 @ 10:43 by Gaston Tolbert MD) Idiopathic pancreatitis (Acute) Acute on recurrent pancreatitis (Acute) Subjective: Patient was seen and examined. He is been passing flatus by yet to move his bowels. Diet has been advanced and is tolerating it. Denies any abdominal pain no nausea or vomiting Objective: Physical exam: General: Alert, Oriented x3, Cooperative, No apparent distress HEENT: Atraumatic, PERRLA, EOMI, Normocephalic Oral: Moist Mucosa Neck: Supple, No JVD, Negative Carotid Bruits Lungs: Clear to auscultation, Normal air movement Cardiovascular: Regular rate, Regular Rhythm, Normal S1, Normal S2, No murmurs Abdomen: Bowel Sounds Present, Soft, Non-Distended, non-tender Extremities: No edema, Capillary Refill Less than 3 Seconds Skin: No rashes, No breakdown Musculoskeletal: No Tenderness to Palpation of Joints or Extremities Lymphatic: No Cervical, Supraclavicular, or Inguinal Adenopathy Neurological: Cranial nerves II-XII grossly intact, Neuro grossly intact Psych/Mental Status: Normal Affect, Appropriate Vitals/I&O's: Vital Signs Temp Pulse Resp BP Pulse Ox 98.9 F 77 16 117/63 95 05/24/18 13:59 05/24/18 13:59 05/24/18 13:59 05/24/18 13:59 05/24/18 13:59 Oxygen Delivery Method Room Air Weight: 111.4 kg Body Mass Index (BMI) 34.2 Intake and Output for Last 24 Hours 05/22/18 05/23/18 05/24/18 23:59 23:59 23:59 Intake Total 3705 / 3705 3956 / 3956 556 / 556 Output Total 1525 / 1525 3675 / 3675 900 / 900 Balance 2180 / 2180 281 / 281 -344 / -344 Laboratory Results 05/24/18 05:35: WBC 9.7, RBC 4.08 L, Hgb 12.9 L, Hct 37.3 L, MCV 91.4, MCH 31.6 , MCHC 34.6, RDW 12.5, RDW Differential 41.6, Plt Count 285, MPV 9.3, Immature Gran % (Auto) 1.800 H, Neut % (Auto) 62.8, Lymph % (Auto) 16.9 L, [place] % (Auto) 12.9 H, Eos % (Auto) 5.0, Baso % (Auto) 0.6, Absolute Neuts (auto) 6.1, Absolute Lymphs (auto) 1.63, Total Counted Not Reportable 05/24/18 05:35: Sodium 137, Potassium 3.4 L, Chloride 103, Carbon Dioxide 23.0, Anion Gap 11, BUN 16, Creatinine 0.75, Estim Creat Clear Calc 105.98, Est GFR ( MDRD) Af Amer 134, Est GFR (MDRD) Non-Af 111, BUN/Creatinine Ratio 21.2 H, Glucose 62 L, Calcium 8.4 L, Total Bilirubin 1.40 H, AST 17, ALT 24, Alkaline Phosphatase 105, Total Protein 6.8, Albumin 2.4 L, Globulin 4.4 H, Albumin/ Globulin Ratio 0.5 L Current Medications Adalimumab (Humira) 40 mg SQ Q14D [facility] Last Admin: 05/23/18 16:00 Dose: Not Given Albuterol Sulfate (Ventolin Aerosols) 2.5 mg INHALATION Q4H PRN PRN Reason: shortness of breath/wheezing Enoxaparin Sodium (Lovenox) 40 mg SC DAILY@1000 [facility] Last Admin: 05/24/18 10:02 Dose: 40 mg Fentanyl (Duragesic Patch) 50 mcg TRANSDERM. Q3D [facility] Last Admin: 05/23/18 16:38 Dose: 50 mcg Hydromorphone HCl (Dilaudid Inj) 2 mg IV Q3H PRN PRN PRN Reason: SEVERE PAIN (6-10/10) Last Admin: 05/23/18 18:19 Dose: 2 mg Hydromorphone HCl (Dilaudid Inj) 1 mg IV Q3H PRN PRN PRN Reason: Mod Pain Last Admin: 05/21/18 07:42 Dose: 1 mg Piperacillin Sod/Tazobactam Sod (Zosyn) 3.375 gm in 50 mls @ 12.5 mls/hr IV Q8 [facility] Last Admin: 05/24/18 14:03 Dose: 12.5 mls/hr Labetalol HCl (Trandate) 10 mg IV Q4H PRN PRN PRN Reason: SBP>180 mmhg Magnesium Hydroxide (Milk Of Magnesia) 30 ml PO DAILY PRN PRN PRN Reason: Constipation Ondansetron HCl (Zofran) 4 mg IV Q6H PRN PRN PRN Reason: NAUSEA Last Admin: 05/23/18 05:19 Dose: 4 mg Pancrelipase (Creon Dr 12,000 Unit Capsule) 3 capsule PO TIDCM [facility] Last Admin: 05/24/18 16:23 Dose: 3 capsule Pantoprazole Sodium (Protonix) 40 mg PO DAILY [facility] Last Admin: 05/24/18 10:02 Dose: 40 mg Promethazine HCl (Phenergan) 12.5 mg IV Q6H PRN PRN PRN Reason: NAUSEA/VOMITING Last Admin: 05/22/18 00:52 Dose: 12.5 mg Sodium Chloride () 5 - 30 ml IV UD PRN PRN Reason: SALINE FLUSH Last Admin: 05/21/18 16:44 Dose: 10 ml Medical Necessity - Tobacco Use Smoking Status: Former smoker Tobacco Use: Cigarettes Assessment/Plan All Active Problems (Last Reviewed 05/20/18 @ 10:43 by Gaston Tolbert MD) Choledocholithiasis (Acute) Transaminitis (Acute) Obstructive jaundice (Acute) Idiopathic pancreatitis (Acute) Acute on recurrent pancreatitis (Acute) CAP (community acquired pneumonia) (Resolved) Abdominal hernia (Resolved) History of bowel resection (Resolved) History of cholecystectomy (Resolved) History of appendectomy (Resolved) Acute bronchitis (Resolved) 62-year-old male with past medical history of Crohn's disease and pancreatitis, s/p ERCP with sphincterectomy and bile duct stent, discharged on 05/19/2018 who was re-admitted on 05/20/2018 with worsening abdominal pain. 1. Acute on chronic, recurrent pancreatitis, history of recent ERCP, CT scan of the abdomen and pelvis ?2 shows common bile duct stent in stable position, Leucocytosis resolved, LFTs resolving, except for direct bilirubin, Will continue conservative management, general surgery following 2. Ileus, likely related to pancreatitis, resolving, on advanced diet 3. Leukocytosis, concerning for possible cholangitis, present on admission, Less likely to be cholangitis, patient has improved has been on IV Zosyn since 05/21/2018(day 4), will stop antibiotics tomorrow(day 5) 4. History of Crohn's disease status post multiple bowel surgeries, restarted on Humira 5. Hypertension, fairly controlled, off home meds on prn meds 6. GERD, on PPI 7. DVT prophylaxis with Lovenox subcu Code Visit Inpatient E&M: 88747 Subs Hosp L2
[2018-05-24 19:55] VITALS: BP 139/86; PULSE 71; RESP 16; TEMP 37; O2SAT 96
[2018-05-24] MEDS: HYDROmorphone 1 MG/ML Syringe IV (21:01)
[2018-05-25 01:55] VITALS: BP 124/79; PULSE 65; RESP 16; TEMP 37; O2SAT 98
[2018-05-25] MEDS: Piperacil/Tazobactam 3.375 GM/50 ML ML IV (05:28)
--- NOTE | 2018-05-25 07:02 | PCM.PN.SRG ---
Patient Problems: Active and Suspected Problems (Last Reviewed 05/20/18 @ 10:43 by Gaston Tolbert MD) Idiopathic pancreatitis (Acute) Acute on recurrent pancreatitis (Acute) Subjective: Patient evaluated resting comfortably in the chair. He notes very minimal abdominal discomfort last evening, however no pain or discomfort yesterday or today thus far. Patient is tolerating current bland diet well. - Physical Exam General: Alert, Oriented x3, Cooperative Abdomen: Bowel Sounds Present, Soft, Obese, Tender - pressure noted. Not true pain Vital Signs Temp Pulse Resp BP Pulse Ox 98.6 F 65 16 124/79 H 98 05/25/18 01:55 05/25/18 01:55 05/25/18 01:55 05/25/18 01:55 05/25/18 01:55 Oxygen Delivery Method Room Air Weight: 245 lb 9.519 oz Body Mass Index (BMI) 34.2 Intake and Output for Last 24 Hours 05/23/18 05/24/18 05/25/18 23:59 23:59 23:59 Intake Total 3956 / 3956 556 / 556 1371 / 1371 Output Total 3675 / 3675 900 / 900 975 / 975 Balance 281 / 281 -344 / -344 396 / 396 Laboratory Tests Past 24 Hrs 05/24/18 05/24/18 05:35 05:35 WBC 9.7 RBC 4.08 L Hgb 12.9 L Hct 37.3 L MCV 91.4 MCH 31.6 MCHC 34.6 RDW 12.5 RDW Differential 41.6 Plt Count 285 MPV 9.3 Immature Gran % (Auto) 1.800 H Neut % (Auto) 62.8 Lymph % (Auto) 16.9 L [place] % (Auto) 12.9 H Eos % (Auto) 5.0 Baso % (Auto) 0.6 Absolute Neuts (auto) 6.1 Absolute Lymphs (auto) 1.63 Total Counted Not Reportable Sodium 137 Potassium 3.4 L Chloride 103 Carbon Dioxide 23.0 Anion Gap 11 BUN 16 Creatinine 0.75 Estim Creat Clear Calc 105.98 Est GFR (MDRD) Af Amer 134 Est GFR (MDRD) Non-Af 111 BUN/Creatinine Ratio 21.2 H Glucose 62 L Calcium 8.4 L Total Bilirubin 1.40 H AST 17 ALT 24 Alkaline Phosphatase 105 Total Protein 6.8 Albumin 2.4 L Globulin 4.4 H Albumin/Globulin Ratio 0.5 L Medical Necessity - Tobacco Use Smoking Status: Former smoker Tobacco Use: Cigarettes Assessment/Plan All Active Problems (Last Reviewed 05/20/18 @ 10:43 by Gasotn Tolbert MD) Choledocholithiasis (Acute) Transaminitis (Acute) Obstructive jaundice (Acute) Idiopathic pancreatitis (Acute) Acute on recurrent pancreatitis (Acute) CAP (community acquired pneumonia) (Resolved) Abdominal hernia (Resolved) History of bowel resection (Resolved) History of cholecystectomy (Resolved) History of appendectomy (Resolved) Acute bronchitis (Resolved) I am following this patient in conjunction with Dr. Maya. Impression: Acute pancreatitis s/p ERCP. Crohn's flare up. Patient ready for discharge today Our office will call to schedule repeat ERCP with spyglass for next week. Discussed with patient. Follow-up as needed Code Visit Inpatient E&M: 89111 Subs Hosp L1
--- NOTE | 2018-05-25 07:56 | PCM.DC ---
- Discharge Diagnoses Current Active Problems: Current Active and Chronic Problems (Last Reviewed 05/20/18 @ 10:43 by Gaston Tolbert MD) Idiopathic pancreatitis (Acute) Acute on recurrent pancreatitis (Acute) Reason(s) for Visit for Discharge Instructions: Abdominal pain You will use the following diet at home:: Calorie/Carbohydrate Controlled (specify 1200, 1400, etc), Cardiac Your food should be the consistency of: Regular Your liquids should be the consistency of: Regular/Thin Discharge Activity: Return to Normal Activity Allergies/Adverse Reactions: Allergies No Known Allergies Allergy (Verified 05/20/18 07:49) Medications to take at Discharge Adalimumab [Humira] 40 mg SQ Q14D 01/10/14 Omeprazole [Prilosec] 40 mg PO DAILY 01/10/14 Cholestyramine (with Sugar) [Cholestyramine Powder] 1 dose PO QHS 12/16/17 Lipase/Protease/Amylase [Creon Dr 36,000 Units Capsule] 1 cap PO TID PRN 12/16/17 Albuterol Inhaler [Ventolin Hfa] 1 puff INHALATION Q4H PRN PRN #1 inhaler 12/20/17 albuterol sulfate HFA 90 mcg/actuation aerosol inhaler 2 puff INHALATION Q6H PRN #1 device 04/12/18 Orders to be completed after discharge: Basic Metabolic Profile (BMP) Time Frame: 1 Week, Location: Laboratory CBC W/Diff, Automated Location: Laboratory Primary Care Physician: Shante Castro MD [Primary Care Provider] - Please follow up with your Primary Care Physician in: within 2 weeks Test Results: Test results from this visit will be discussed in further detail at your follow-up appointment, if applicable. Please Follow Up With: Jamel Maya MD When: follow-up for ERCP with Dr. Maya Proposed Discharge Date: 05/25/18
--- NOTE | 2018-05-25 07:59 | DCINST_ITS ---
- Discharge Diagnoses Current Active Problems: Current Active and Chronic Problems (Last Reviewed 05/20/18 @ 10:43 by Gaston Tolbert MD) Idiopathic pancreatitis (Acute) Acute on recurrent pancreatitis (Acute) Reason(s) for Visit for Discharge Instructions: Abdominal pain You will use the following diet at home:: Calorie/Carbohydrate Controlled ( specify 1200, 1400, etc), Cardiac Your food should be the consistency of: Regular Your liquids should be the consistency of: Regular/Thin Discharge Activity: Return to Normal Activity Allergies/Adverse Reactions: Allergies No Known Allergies Allergy (Verified 05/20/18 07:49) Medications to take at Discharge Adalimumab [Humira] 40 mg SQ Q14D 01/10/14 Omeprazole [Prilosec] 40 mg PO DAILY 01/10/14 Cholestyramine (with Sugar) [Cholestyramine Powder] 1 dose PO QHS 12/16/17 Lipase/Protease/Amylase [Creon Dr 36,000 Units Capsule] 1 cap PO TID PRN Albuterol Inhaler [Ventolin Hfa] 1 puff INHALATION Q4H PRN PRN #1 inhaler albuterol sulfate HFA 90 mcg/actuation aerosol inhaler 2 puff INHALATION Q6H PRN #1 device 04/12/18 Orders to be completed after discharge: Basic Metabolic Profile (BMP) Time Frame: 1 Week, Location: Laboratory CBC W/Diff, Automated Location: Laboratory Primary Care Physician: Shante Castro MD [Primary Care Provider] - Please follow up with your Primary Care Physician in: within 2 weeks Test Results: Test results from this visit will be discussed in further detail at your follow- up appointment, if applicable. Please Follow Up With: Jamel Maya MD When: follow-up for ERCP with Dr. Maya Proposed Discharge Date: 05/25/18
--- NOTE | 2018-05-25 08:19 | PCA ---
called doctor luis office to make a follow up appointment for patient. the office will call patient himself to scedule appointment. called doctor olimpia summers they sceduled him for jun 06 1415
--- NOTE | 2018-05-25 09:00 | PCM.DC.SUM ---
Discharge Date and Diagnosis Date of Admission: 05/20/18 Date of Discharge: 05/25/18 - Primary Discharge Diagnosis Active and Suspected Problems (Last Reviewed 05/20/18 @ 10:43 by Gaston Tolbert MD) Idiopathic pancreatitis (Acute) Acute on recurrent pancreatitis (Acute) Leukocytosis - Secondary Discharge Diagnosis Chronic Problems (Last Reviewed 05/20/18 @ 10:43 by Gaston Tolbert MD) Gynecomazia (Chronic) Chronic pancreatitis (Chronic) Crohn's disease of small intestine (Chronic) Dyslipidemia (Chronic) Hospital Course and Treatment Imaging Results: Clinical Impression(s) from Imaging Studies Abdomen/Pelvis CT 05/20/18 08:00 IMPRESSION: 1. Status post common bile duct stent placement. 2. Mild pneumobilia. 3. Nonobstructing stone in the right kidney without evidence of hydronephrosis. 4. Mild diverticulosis without evidence of acute diverticulitis. 5. Nonvisualization of the appendix. Electronically Signed: Maonhar Castañeda MD at 9:43 EDT Tel , Service support , Abdomen/Pelvis CT 05/21/18 09:40 IMPRESSION: 1. Subtle mild stranding around the pancreas suggestive of early acute pancreatitis. 2. Common bile duct stent in stable position. 3. Nonspecific fluid-filled small bowel loops without evidence of small bowel obstruction likely due to ileus. 4. Diverticulosis without evidence for acute diverticulitis. Electronically Signed: Manohar Castañeda MD at 13:33 EDT Tel , Service support , General surgery Operations: ERCP, - Procedures: None Summary of Care Provided: The patient is a 62 year old M with past medical history of Crohn's disease and pancreatitis, recently admitted in discharge status post ERCP with sphincterotomy and bile duct stent. Patient was readmitted with worsening abdominal pain. His management has been as follows: 1. Acute on chronic, recurrent pancreatitis, CT scan of the abdomen and pelvis ?2 shows common bile duct stent in stable position, He had leukocytosis that was slowly resolving, associated LFTs was also resolving, except for direct bilirubin, managed conservatively, general surgery followed. Patient had improvement in his abdominal pain, was able to tolerate advancement in his diet. He will follow-up with general surgery for repeat ERCP with spyglass the next week 2. Ileus, likely related to pancreatitis, was slow to improve, managed conservatively with bowel rest, IV fluids, early ambulation, improved 3. Leukocytosis, concerning for possible cholangitis, present on admission, managed with IV antibiotics for 5 days, less likely to be cholangitis, 4. History of Crohn's disease status post multiple bowel surgeries, Humira initially withheld, later restarted. 5. Hypertension, blood pressure initially uncontrolled of his home medication on account of n.p.o. status, later on improved, resumed on home medication. 6. GERD, on PPI Discharge Diet: Low fat/ Low Cholesterol, 2000 mg Sodium Diet Discharge Activity: Return to Normal Activity Home Medications: Medications to take at Discharge Adalimumab [Humira] 40 mg SQ Q14D 01/10/14 Omeprazole [Prilosec] 40 mg PO DAILY 01/10/14 Cholestyramine (with Sugar) [Cholestyramine Powder] 1 dose PO QHS 12/16/17 Lipase/Protease/Amylase [Maira Soria 36,000 Units Capsule] 1 cap PO TID PRN 12/16/17 Albuterol Inhaler [Ventolin Hfa] 1 puff INHALATION Q4H PRN PRN #1 inhaler 12/20/17 albuterol sulfate HFA 90 mcg/actuation aerosol inhaler 2 puff INHALATION Q6H PRN #1 device 04/12/18 Other Amb Orders: CBC W/Diff, Automated Location: Laboratory Primary Care Physician: Shante Castro MD [Primary Care Provider] - Please follow up with your Primary Care Physician in: within 2 weeks Please Follow Up With: Jamel Maya MD When: follow-up for ERCP with Dr. Maya Please Follow Up With: Shante Castro MD When: Office will Call you personally to radha appoinment for 2 weeks Disposition: Home Minutes spent on discharge:: 40 Patient Condition:: Stable Medical Necessity - Tobacco Use Smoking Status: Former smoker Tobacco Use: Cigarettes Meaningful Use Info Meaningful Use Diagnoses (Choose all that apply): None applicable Code Visit Inpatient E&M: 67164 Subs Hosp L2
[2018-05-25 10:25] VITALS: BP 130/80; PULSE 84; RESP 18; TEMP 36.6; O2SAT 97
--- NOTE | 2018-05-26 17:16 | CASEMGMT ---
RN CM Discharge Follow-up Phone Call: CHITRA: 14 Strata: 4 Call Date: 05/26/18 Discharge Date: 05/25/18 Time of Call: 1716 Duration: 1 min Admitting Diagnosis: Acute pancreatitis post ERCP RN CM attempted to complete follow-up phone call after recent hospitalization. No answer, voice message left with return contact information.
== END 2018-05-25 10:43 | disposition home or self-care (01) | DRG 393 ==
LOC: ED 08:03 → MS3 11:16
PROVIDERS: Surgery; Admitting Provider Internal Medicine; Emergency Provider Emergency Medicine; Family Provider Internal Medicine; PCP Internal Medicine; Visit Provider Internal Medicine
DX: K91.89 Other postprocedural complications and disorders of digestive system (principal); K85.90 Acute pancreatitis without necrosis or infection, unspecified; K50.00 Crohn's disease of small intestine without complications; K56.7 Ileus, unspecified; K86.1 Other chronic pancreatitis; Y84.8 Other medical procedures as the cause of abnormal reaction of the patient, or of later complication, without mention of misadventure at the time of the procedure; K21.9 Gastro-esophageal reflux disease without esophagitis; I10 Essential (primary) hypertension; E78.5 Hyperlipidemia, unspecified; Z87.891 Personal history of nicotine dependence; Z90.49 Acquired absence of other specified parts of digestive tract; Z79.899 Other long term (current) drug therapy
CPT/HCPCS: 36415; 74177; 80048; 80053; 80076; 81001; 83690; 85025; 99284; J7030; J7040; Q9967; A4216; J2405

== ENCOUNTER → 2018-06-01 15:58 | Outpatient (CLI) | payer BC, SELFPAY ==
[2018-06-01 17:45] LABS: Absolute Lymphocyte Count 3.28 X10^3/ul (0.83-4.51); Absolute Neutrophil Count 4.5 X10^3/uL (2.0-7.7); Basophil# 0.07 X10^3/uL; Basophil% 0.7 % (0-1); Eosinophil# 0.33 X10^3/uL; Eosinophils% 3.5 % (0-5); Hematocrit 42.4 % (40-54); Hemoglobin 14.2 g/dl (13.0-16.5); Lymphocyte # 3.28 X10^3/ul (4.0); Lymphocyte % 35.1 % (19-41); Mean Corp Hgb Conc 33.5 g/gl (32-36); Mean Corpuscular Hgb 30.8 pg (27.0-32.0); Mean Platelet Vol. 9.4 fl (6.2-12.0); Monocyte# 1.12 X10^3/uL; Neutrophil % 48.3 % (47-70); POSITIVE COUNT NO; POSITIVE DIFFERENTIAL NO; POSITIVE MORPHOLOGY NO; Platelet Count 379 K/mm3 (150-450); RBC Distribution Width CV 13.5 % (11.6-14.6); RBC Distribution Width SD 45.1 fl (35.1-43.9); Red Blood Count 4.61 M/mm3 (4.6-6.2); White Blood Count 9.3 K/mm3 (4.4-11.0)
[2018-06-01 17:51] LABS: Anion Gap 8 (5-15); BUN 30 mg/dL (7-18); BUN/Creat Ratio 28.3 RATIO (10-20); Calcium,Total 8.7 mg/dL (8.5-10.1); Chloride 103 mmol/L (98-107); Creatinine, Serum 1.06 mg/dL (0.70-1.30); EST Glomerular Filtration Rate 75 mL/min (>60); Est Glom Filt Rate - Afr Amer 90 mL/min (>60); Glucose 107 mg/dL (74-106); Potassium 3.9 mmol/L (3.5-5.1); Sodium Level 136 mmol/L (136-145)
== END ==
PROVIDERS: Family Provider Internal Medicine; PCP Internal Medicine; Referring Provider Internal Medicine; Visit Provider Internal Medicine
DX: K56.7 Ileus, unspecified (principal); D72.829 Elevated white blood cell count, unspecified
CPT/HCPCS: 36415; 80048; 85025

== ENCOUNTER 2018-06-19 16:50 | Inpatient (IN) | payer BC, SELFPAY ==
[2018-06-19] VITALS (13 sets, daily range): BP systolic 131–155; BP diastolic 75–104; PULSE 55–95; RESP 16–18; TEMP 36.2–36.7; O2SAT 92–98; BMI 35.6
--- NOTE | 2018-06-19 13:50 | RAD_ITS ---
STUDY: ERCP REASON FOR EXAM: Male, 63 years old. Stent removal. RADIATION DOSAGE (If Supplied By Facility): CTDIvol = ( ) mGy, DLP = ( ) mGycm. Individualized dose optimization techniques were used for this CT.? FLUOROSCOPY TIME (if supplied): ( ) minutes/seconds TECHNIQUE: 3 intraprocedural images were presented for interpretation. COMPARISON: ERCP, May 18, 2018. CT of the abdomen and pelvis, May 21, 2018. FINDINGS: The initial image demonstrates an endoscope in the duodenum with cannulization of the biliary ductal system. There is faint contrast seen in the CBD and intrahepatic ducts. There appears to be linear filling defect within the CBD, thought to be the stent. The second image demonstrates slightly increased contrast within the CBD and common hepatic duct which appeared to be of normal diameter without filling defect. The cystic duct stump is noted. The third image demonstrates a balloon in the region of the ampulla. The visualized intra and extrahepatic ductal system is of normal diameter and without filling defects. Please refer to the operative report for further details. RAD/ERCP Biliary Only IMPRESSION: ERCP in the OR. Electronically Signed: Edilberto Washburn MD at 17:18 EDT , Service support ,
[2018-06-19] MEDS: INDOMETHACIN 50 MG SUPP.RECT 100 MG RECTAL (15:01)
--- NOTE | 2018-06-19 15:14 | OP.ENDO_ITS ---
Patient Name: Oli Sanchez Procedure Date: 06/19/2018 1:27 PM Date of : 1955 Age: 63 Procedure: ERCP Indications: Common bile duct stricture, Jaundice, Biliary stent removal Providers: Jamel Maya MD Medicines: General Anesthesia Patient Profile: This is a 63 year old male. He is status post ERCP for biliary evaluation and ERCP for stent within the past month. Complications: No immediate complications. Procedure: Pre-Anesthesia Assessment: - Prior to the procedure, a History and Physical was performed, and patient medications and allergies were reviewed. The patient's tolerance of previous anesthesia was also reviewed. The risks and benefits of the procedure and the sedation options and risks were discussed with the patient. All questions were answered, and informed consent was obtained. Prior Anticoagulants: The patient has taken no previous anticoagulant or antiplatelet agents. After reviewing the risks and benefits, the patient was deemed in satisfactory condition to undergo the procedure. After obtaining informed consent, the scope was passed under direct vision. Throughout the procedure, the patient's blood pressure, pulse, and oxygen saturations were monitored continuously. The duodenoscope was introduced through the mouth, and advanced to the duodenum and used for direct visualization of the bile duct. The ERCP was technically difficult and complex. The patient tolerated the procedure well. Scope In: 2:01:22 PM Scope Out: 3:00:31 PM Total Procedure Duration Time 0 hours 59 minutes 9 seconds Findings: One stent was removed from the biliary tree using a snare. The bile duct was explored endoscopically using the SpyGlass direct visualization system. The SpyGlass probe was advanced to the bifurcation. Visibility with the probe was excellent. Normal mucosa was found in the middle third of the main bile duct and upper third of the main bile duct. The lumen of the lower third of the main bile duct was mildly narrowed. The lower third of the main bile duct was biopsied with a cold forceps for histology. Impression: - Normal mucosa was found in the middle third of the main bile duct and upper third of the main bile duct. - Mildly narrowed lumen in the biliary tract visualized via SpyGlass. - One stent was removed from the biliary tree. - Biopsy was performed in the lower third of the main duct. Recommendation: - Discharge patient to home. - Resume previous diet. - Continue present medications. - Await path results. - Physician's office will call you with pathology results and recommendations for when to repeat colonoscopy. Procedure Code(s): --- Professional --- 58699, Endoscopic retrograde cholangiopancreatography (ERCP); with removal of foreign body(s) or stent(s) from biliary/pancreatic duct(s) 89816, Endoscopic retrograde cholangiopancreatography (ERCP); with biopsy, single or multiple 99776, Endoscopic cannulation of papilla with direct visualization of pancreatic/common bile duct(s) (List separately in addition to code(s) for primary procedure) Diagnosis Code(s): --- Professional --- Z46.59, Encounter for fitting and adjustment of other gastrointestinal appliance and device K83.1, Obstruction of bile duct R17, Unspecified jaundice R93.2, Abnormal findings on diagnostic imaging of liver and biliary tract CPT copyright 2017 [employer]. All rights reserved. The codes documented in this report are preliminary and upon surveillance director review may be revised to meet current compliance requirements. Jamel Maya MD 06/19/2018 3:13:49 PM This report has been signed electronically. Number of Addenda: 0 Note Initiated On: 06/19/2018 1:27 PM
--- NOTE | 2018-06-19 16:43 | CT_ITS ---
STUDY: CT ABDOMEN WITH CONTRAST REASON FOR EXAM: Male, 63 years old. Pain status post ERCP RADIATION DOSAGE (If Supplied By Facility): CTDIvol = ( 18.15 ) mGy, DLP = ( 986.81 ) mGycm TECHNIQUE: Transaxial images were obtained post I.V. administration of 100 ml of Isovue 300 contrast, and oral contrast. Sagittal and coronal images were reconstructed. Individualized dose optimization techniques were used for this CT. COMPARISON: CT of the abdomen of May 21, 2018 FINDINGS: There is interstitial thickening seen at both lung bases. There is mild atelectasis within the dependent portion of the lungs. The visualized portions of the heart are within normal limits. Liver is fatty infiltrated without mass or bile duct dilatation. Within the left lobe of the liver, there appears to be a hyperattenuated mass measuring 7 x 5.05 cm each has the appearance of layering contrast Gallbladder not visualized consistent with cholecystectomy Normal spleen. Fatty infiltrated atrophic pancreas Normal bilateral adrenal glands. Tiny nonobstructing right renal calculus.. No evidence for hydronephrosis or ureteral calculus. There is no renal mass. Nonspecific gastric distention Postop changes status post surgical resection of the small bowel. Diverticular changes of the colon without evidence for acute epiglottitis. No evidence for acute appendicitis. No evidence for small bowel obstruction or free air. Mild atherosclerotic changes of the aorta without evidence for aneurysm. Normal inferior vena cava. Normal retroperitoneum. Surgical clip noted within the anterior abdominal wall.. Thoracolumbar spine demonstrates mild spondylosis CT/Abdomen WITH IV Contrast IMPRESSION: There is a mass within the left lobe of the liver which has the appearance of layering contrast. This could be extravasation of contrast due to acute hemorrhage related to perforation or extravasation of the biliary tree during ERCP... Previously direct gastrohepatic perforation is not entirely excluded although there is no free air or extravasated contrast seen within the abdomen at this time. Clinical correlation is recommended Tagged red blood cell study would be helpful for further evaluation N.B. : The above information has been verbally conveyed by Edilberto Washburn MD to George Foley RN, on 06/19/2018 20:18:19 (ET). Electronically Signed: Edilberto Washburn MD at 20:17 EDT , Service support ,
[2018-06-19 17:36] LABS: Hematocrit 41.5 % (40-54); Hemoglobin 13.8 g/dl (13.0-16.5); Mean Corp Hgb Conc 33.3 g/gl (32-36); Mean Corpuscular Hgb 30.3 pg (27.0-32.0); Mean Corpuscular Volume 91.2 fL (80-94); Platelet Count 211 K/mm3 (150-450); RBC Distribution Width CV 13.4 % (11.6-14.6); RBC Distribution Width SD 44.7 fl (35.1-43.9); Red Blood Count 4.55 M/mm3 (4.6-6.2)
[2018-06-19 17:38] LABS: ALB/GLOB Ratio 0.7 RATIO (0.9-2.4); AST(SGOT) 44 U/L (15-37); Alanine Aminotransfer ALT/SGPT 36 U/L (16-61); Albumin, Serum 3.1 g/dL (3.2-5.0); Alkaline Phosphatase 109 U/L (45-117); Anion Gap 7 (5-15); BUN 25 mg/dL (7-18); BUN/Creat Ratio 28.1 RATIO (10-20); Calcium,Total 8.4 mg/dL (8.5-10.1); Chloride 105 mmol/L (98-107); Creatinine, Serum 0.89 mg/dL (0.70-1.30); EST Glomerular Filtration Rate 91 mL/min (>60); Est Glom Filt Rate - Afr Amer 110 mL/min (>60); Estimated Creatinine Clearance 85.44 ml/min; Globulin 4.6 g/dL (2.2-4.2); Glucose 120 mg/dL (74-106); Lipase 2252 U/L (73-393); Potassium 3.8 mmol/L (3.5-5.1); Protein, Total 7.7 g/dL (6.4-8.2); Sodium Level 137 mmol/L (136-145)
[2018-06-19 17:43] LABS: Scan Indicated on CBC? Y/N NO
[2018-06-19] MEDS: Morphine 4 MG/ML Syringe IV (17:54)
[2018-06-19] MEDS: proMETHazine 25 MG/ML Syringe 12.5 MG IV (18:23)
[2018-06-19] MEDS: Dextrose 5%-Lactated Ringers 1,000 ML 125 ML IV (18:26)
[2018-06-19] MEDS: Morphine 2 MG/ML Syringe IV ×2 (21:17→23:35)
[2018-06-19] MEDS: Piperacil/Tazobactam 3.375 GM/50 ML ML IV (21:25)
[2018-06-19] MEDS: Cholestyramine/Sucrose 4 GM/PACKET 1 GM PO (22:58)
[2018-06-20] VITALS (7 sets, daily range): BP systolic 107–125; BP diastolic 67–79; PULSE 84–99; RESP 16–20; TEMP 36.4–36.8; O2SAT 93–97
[2018-06-20] MEDS: 0.9% NaCl IVPB Med Flush (250 mL) 15 ML IV (01:37)
[2018-06-20] MEDS: Morphine 2 MG/ML Syringe IV ×2 (01:37→03:40)
[2018-06-20] MEDS: Dextrose 5%-Lactated Ringers 1,000 ML 125 ML IV ×3 (03:11→20:36)
[2018-06-20] MEDS: Morphine 4 MG/ML Syringe IV (06:03)
[2018-06-20] MEDS: Piperacil/Tazobactam 3.375 GM/50 ML ML IV ×3 (06:04→23:43)
[2018-06-20] MEDS: 0.9% NaCl Peripheral Flush Adult/Peds IV ×6 (06:04→17:18)
[2018-06-20] MEDS: Ondansetron 4 MG/2 ML Vial IV (06:23)
--- NOTE | 2018-06-20 07:02 | NURSING ---
Dr. Maya called this RN and stated that he had ordered labs but they did not appear to have been drawn yet. I called lab and they couldn't find them. They will call tech to see what is going on.
[2018-06-20 07:38] LABS: ALB/GLOB Ratio 0.6 RATIO (0.9-2.4); AST(SGOT) 36 U/L (15-37); Alanine Aminotransfer ALT/SGPT 38 U/L (16-61); Albumin, Serum 2.9 g/dL (3.2-5.0); Alkaline Phosphatase 105 U/L (45-117); Anion Gap 9 (5-15); BUN 18 mg/dL (7-18); BUN/Creat Ratio 18.9 RATIO (10-20); Calcium,Total 8.7 mg/dL (8.5-10.1); Chloride 102 mmol/L (98-107); Creatinine, Serum 0.95 mg/dL (0.70-1.30); EST Glomerular Filtration Rate 84 mL/min (>60); Est Glom Filt Rate - Afr Amer 102 mL/min (>60); Estimated Creatinine Clearance 80.04 ml/min; Globulin 4.8 g/dL (2.2-4.2); Glucose 142 mg/dL (74-106); Lipase 515 U/L (73-393); Potassium 4.1 mmol/L (3.5-5.1); Protein, Total 7.7 g/dL (6.4-8.2); Sodium Level 135 mmol/L (136-145)
[2018-06-20 07:52] LABS: Absolute Lymphocyte Count 1.59 X10^3/ul (0.83-4.51); Absolute Neutrophil Count 18.3 X10^3/uL (2.0-7.7); Basophil# 0.01 X10^3/uL; Hematocrit 42.9 % (40-54); Hemoglobin 14.7 g/dl (13.0-16.5); Lymphocyte # 1.59 X10^3/ul (4.0); Lymphocyte % 7.6 % (19-41); Mean Corp Hgb Conc 34.3 g/gl (32-36); Mean Corpuscular Hgb 30.9 pg (27.0-32.0); Mean Corpuscular Volume 90.3 fL (80-94); Mean Platelet Vol. 9.1 fl (6.2-12.0); Monocyte# 1.12 X10^3/uL; Monocyte% 5.3 % (0-10); Neutrophil # 18.29 X10^3/uL (2.7-7.7); Neutrophil % 86.9 % (47-70); Platelet Count 185 K/mm3 (150-450); RBC Distribution Width CV 13.2 % (11.6-14.6); RBC Distribution Width SD 43.3 fl (35.1-43.9); Red Blood Count 4.75 M/mm3 (4.6-6.2); White Blood Count 21.1 K/mm3 (4.4-11.0)
[2018-06-20 07:54] LABS: Differential Indicated SCAN CRITERIA MET; POSITIVE COUNT NO; POSITIVE DIFFERENTIAL NO; POSITIVE MORPHOLOGY YES
--- NOTE | 2018-06-20 08:25 | NURSING ---
into round on pt, found George primary RN from weight shifter attempting to restart IV, states difficult stick pt verbalized he has had a PICC line in past d/t difficult iv start. IV obtained. pt c/o pain 06/14 states making him have difficult taking deep breathes also c/o nausea from the pain. pt states chronic use of phenergan in past and that morphine has never worked on him in the past for pain. pt medicated for pain and nausea. pt more relaxed at time. breathing even/unlabored o2 maintained. denies all further needs. call light within reach. primary RN dayshift updated.
[2018-06-20] MEDS: Ketorolac 15 MG/ML Vial IV ×3 (08:29→23:34)
[2018-06-20] MEDS: HYDROmorphone 1 MG/ML Syringe IV ×6 (08:29→23:31)
[2018-06-20] MEDS: proMETHazine 25 MG/ML Syringe 12.5 MG IV ×2 (08:29→23:34)
--- NOTE | 2018-06-20 13:29 | PCM.PN.SRG ---
Subjective: Patient is still complaining of epigastric pain. No nausea or vomiting. - Physical Exam General: Alert, Oriented x3, Cooperative HEENT: Atraumatic Lungs: Normal air movement Cardiovascular: Regular rate, Regular Rhythm Abdomen: Soft, Non-Distended, Tender - Tender in epigastric region Vital Signs Temp Pulse Resp BP Pulse Ox 98.1 F 96 18 111/75 94 06/20/18 09:46 06/20/18 09:46 06/20/18 09:46 06/20/18 09:46 06/20/18 09:46 Oxygen Flow Rate (L/min) 93 Oxygen Delivery Method Nasal Cannula Weight: 248 lb 3.848 oz Body Mass Index (BMI) 35.6 Intake and Output for Last 24 Hours 06/18/18 06/19/18 06/20/18 23:59 23:59 23:59 Intake Total 1420 / 1420 1509 / 1509 Output Total 425 / 425 900 / 900 Balance 995 / 995 609 / 609 Laboratory Tests Past 24 Hrs 06/19/18 06/19/18 06/20/18 16:54 16:54 07:03 WBC 10.0 21.1 H RBC 4.55 L 4.75 Hgb 13.8 14.7 Hct 41.5 42.9 MCV 91.2 90.3 MCH 30.3 30.9 MCHC 33.3 34.3 RDW 13.4 13.2 RDW Differential 44.7 H 43.3 Plt Count 211 185 MPV 9.0 9.1 Immature Gran % (Auto) 0.200 Neut % (Auto) 86.9 H Lymph % (Auto) 7.6 L [place] % (Auto) 5.3 Eos % (Auto) 0.0 Baso % (Auto) 0.0 Absolute Neuts (auto) 18.3 H Absolute Lymphs (auto) 1.59 Total Counted Not Reportable Sodium 137 Potassium 3.8 Chloride 105 Carbon Dioxide 25.0 Anion Gap 7 BUN 25 H Creatinine 0.89 Estim Creat Clear Calc 85.44 Est GFR (MDRD) Af Amer 110 Est GFR (MDRD) Non-Af 91 BUN/Creatinine Ratio 28.1 H Glucose 120 H Calcium 8.4 L Total Bilirubin 0.90 AST 44 H ALT 36 Alkaline Phosphatase 109 Total Protein 7.7 Albumin 3.1 L Globulin 4.6 H Albumin/Globulin Ratio 0.7 L Lipase 2252 H 06/20/18 07:03 WBC RBC Hgb Hct MCV MCH MCHC RDW RDW Differential Plt Count MPV Immature Gran % (Auto) Neut % (Auto) Lymph % (Auto) [place] % (Auto) Eos % (Auto) Baso % (Auto) Absolute Neuts (auto) Absolute Lymphs (auto) Total Counted Sodium 135 L Potassium 4.1 Chloride 102 Carbon Dioxide 24.0 Anion Gap 9 BUN 18 Creatinine 0.95 Estim Creat Clear Calc 80.04 Est GFR (MDRD) Af Amer 102 Est GFR (MDRD) Non-Af 84 BUN/Creatinine Ratio 18.9 Glucose 142 H Calcium 8.7 Total Bilirubin 0.70 AST 36 ALT 38 Alkaline Phosphatase 105 Total Protein 7.7 Albumin 2.9 L Globulin 4.8 H Albumin/Globulin Ratio 0.6 L Lipase 515 H Medical Necessity - Tobacco Use Smoking Status: Former smoker Assessment/Plan All Active Problems (Last Reviewed 06/06/18 @ 14:17 by Katie Ford) Choledocholithiasis (Acute) Transaminitis (Acute) Obstructive jaundice (Acute) Idiopathic pancreatitis (Acute) Acute on recurrent pancreatitis (Acute) CAP (community acquired pneumonia) (Resolved) Abdominal hernia (Resolved) History of bowel resection (Resolved) History of cholecystectomy (Resolved) History of appendectomy (Resolved) Acute bronchitis (Resolved) 63-year-old male with post ERCP pancreatitis and fluid collection 1. Patient had severe epigastric pain following ERCP yesterday. CT scan was performed as well as a lipase drawn. Lipase was elevated indicating post ERCP pancreatitis. Patient also had a fluid collection in the left lobe of his liver. The radiologist is uncertain of the etiology of this. It is possible that during the spyglass portion of the ERCP yesterday the irrigation caused increased pressure to cause bile leak from a biliary radicle and cause an intrahepatic biloma. The guidewire was placed in the right lobe of the liver and the spyglass was never traversed past the bifurcation of the common bile duct. 2. Patient's lipase is decreasing today. He is still having some epigastric pain but he says that the pancreatitis pain is decreasing. He is still having left upper quadrant pain. His pain medication was switched to Dilaudid this morning and Toradol was added since his creatinine was okay. 3. At this time the fluid collection with contrast and it is believed to be a biloma of the liver. I will treat this conservatively and repeat a CT in a few days. I explained that it may require percutaneous drainage. 4. The patient's lipase is improved and once his pancreatitis pain is gone I will start him on a diet and discharge him home on oral pain medications. Jamel Maya MD Pager: [facility] [address] [place] [address] [address] [place] [address] Office:
[2018-06-20] MEDS: Cholestyramine/Sucrose 4 GM/PACKET 1 GM PO (23:41)
[2018-06-21] VITALS (19 sets, daily range): BP systolic 92–140; BP diastolic 51–86; PULSE 88–124; RESP 12–22; TEMP 36.8–37.6; O2SAT 92–96
[2018-06-21] MEDS: HYDROmorphone 1 MG/ML Syringe IV ×8 (03:31→23:13)
[2018-06-21] MEDS: Dextrose 5%-Lactated Ringers 1,000 ML 125 ML IV ×2 (03:32→15:04)
[2018-06-21] MEDS: oxyCODONE 5 MG Tablet PO ×2 (05:04→12:58)
[2018-06-21] MEDS: Ketorolac 15 MG/ML Vial IV ×3 (06:05→21:38)
[2018-06-21] MEDS: Piperacil/Tazobactam 3.375 GM/50 ML ML IV ×3 (06:05→21:38)
--- NOTE | 2018-06-21 07:36 | NURSING ---
Patient in excruciating pain-unable to even palpate left lower abd. Dr. Maya called and gave a 1x order for dilaudid 1mg IV. Maya FELIX entered room and spoke with patient regarding symptoms. She then called Dr. Maya and got an order for STAT CT. VS taken-see intervention. Placed on 2L 02-patient is not able to take deep breaths d/t pain. Lab called for stat labs as well. Will cont to monitor.
--- NOTE | 2018-06-21 07:40 | CT_ITS ---
STUDY: CT ABDOMEN AND PELVIS WITHOUT CONTRAST REASON FOR EXAM: Male, 63 years old. Left lower quadrant pain. RADIATION DOSAGE (If Supplied By Facility): CTDIvol = ( 14.80 ) mGy, DLP = ( 803.75 ) mGycm TECHNIQUE: Transaxial images were obtained from the dome of the diaphragm to the symphysis pubis without oral contrast, and without intravenous contrast. Sagittal and coronal images were reconstructed. Individualized dose optimization techniques were used for this CT. COMPARISON: Comparison is made with prior study dated June 19, 2018. FINDINGS: There is a 1.4 cm calcific density in the deep portion of the left breast. Increased markings are seen at both lung bases with areas of confluent suggestive of bibasilar atelectasis and/or infiltrates. This is essentially unchanged. Coronary artery calcification. The previously seen focal collection of increased density in the region of the left lobe of the liver has decreased. Mild hyperintensity is seen. A tiny air-fluid level seen along the anterior lateral aspect of the left lobe of the liver. The patient is status post cholecystectomy. Normal spleen. There is diffuse atrophy of the pancreas. There is evidence of increased markings in the peripancreatic fat as well as in the deep root of the mesentery. This may represent inflammatory change. This has progressed as compared to prior study. Normal bilateral adrenal glands. 4 mm nonobstructive calculus in the lower pole calyx of the right kidney. Normal left kidney. Normal visualized stomach. Normal small intestine. Scattered sigmoid diverticula. There is non-visualization of the appendix. There is scattered atherosclerotic calcification of the abdominal aorta, without a demonstrated aneurysm. Normal inferior vena cava. Normal retroperitoneum. Normal urinary bladder. There are prostatic calcifications. Normal abdominal wall. There are mild degenerative changes of the visualized lumbar spine. CT/Abdomen/Pelvis without Cont IMPRESSION: Interval improvement in the hyperdensity involving the left lobe of the liver with the mild residual changes. A small air-fluid level is seen along the anterior aspect of the left lobe of the liver. This may be within the subcapsular region. Bibasilar atelectasis and/or infiltrates. Increased markings in the peritoneal fat surrounding the pancreas and root of the mesentery. Nonobstructive right intrarenal calculus. Electronically Signed: Ike Metcalf MD at 9:14 EDT Tel [phone], Service support ,
--- NOTE | 2018-06-21 07:57 | NURSING ---
Patient off unit for CT.
[2018-06-21 08:06] LABS: Absolute Lymphocyte Count 1.33 X10^3/ul (0.83-4.51); Absolute Neutrophil Count 12.3 X10^3/uL (2.0-7.7); Basophil# 0.03 X10^3/uL; Basophil% 0.2 % (0-1); Eosinophil# 0.12 X10^3/uL; Eosinophils% 0.8 % (0-5); Hematocrit 37.1 % (40-54); Hemoglobin 12.5 g/dl (13.0-16.5); Lymphocyte # 1.33 X10^3/ul (4.0); Lymphocyte % 8.6 % (19-41); Mean Corp Hgb Conc 33.7 g/gl (32-36); Mean Corpuscular Volume 92.1 fL (80-94); Monocyte# 1.59 X10^3/uL; Monocyte% 10.3 % (0-10); Neutrophil # 12.34 X10^3/uL (2.7-7.7); Neutrophil % 79.5 % (47-70); Platelet Count 204 K/mm3 (150-450); RBC Distribution Width CV 13.8 % (11.6-14.6); RBC Distribution Width SD 45.5 fl (35.1-43.9); Red Blood Count 4.03 M/mm3 (4.6-6.2); White Blood Count 15.5 K/mm3 (4.4-11.0)
--- NOTE | 2018-06-21 08:07 | PCM.PN.SRG ---
Subjective: Patient evaluated in bed rolling in agony in abdominal pain. Patient denies nausea, vomiting. He denies passing flatus or BM since admission. He was just given pain medication at 0600. I evaluated the patient at 0727. Patient was receiving another 1 mg of pain medication at the time of evaluation. Patient noted pain to be 10 out of 10. Per nursing staff, patient has not been in this amount of pain since admission. - Physical Exam General: Alert, Oriented x3, Cooperative Abdomen: Distended, Guarding, Rigid, Tender - pain LUQ. Vital Signs Temp Pulse Resp BP Pulse Ox 98.8 F 104 H 18 140/79 H 93 06/21/18 07:31 06/21/18 07:31 06/21/18 07:31 06/21/18 07:31 06/21/18 07:31 Oxygen Flow Rate (L/min) 93 Oxygen Delivery Method Nasal Cannula Weight: 248 lb 3.848 oz Body Mass Index (BMI) 35.6 Intake and Output for Last 24 Hours 06/19/18 06/20/18 06/21/18 23:59 23:59 23:59 Intake Total 1420 / 1420 3386 / 3386 625 / 625 Output Total 425 / 425 1900 / 1900 Balance 995 / 995 1486 / 1486 625 / 625 Laboratory Tests Past 24 Hrs 06/20/18 06/21/18 06/21/18 07:03 07:50 07:50 WBC Pending RBC Pending Hgb Pending Hct Pending MCV Pending MCH Pending MCHC Pending RDW Pending RDW Differential Pending Plt Count Pending Neut % (Auto) Pending Absolute Neuts (auto) Pending Total Counted Not Reportable Pending Sodium Pending Potassium Pending Chloride Pending Carbon Dioxide Pending Anion Gap Pending BUN Pending Creatinine Pending Est GFR (MDRD) Af Amer Pending Est GFR (MDRD) Non-Af Pending BUN/Creatinine Ratio Pending Glucose Pending Calcium Pending Total Bilirubin Pending AST Pending ALT Pending Alkaline Phosphatase Pending Total Protein Pending Albumin Pending Medical Necessity - Tobacco Use Smoking Status: Former smoker Assessment/Plan All Active Problems (Last Reviewed 06/06/18 @ 14:17 by Katie Ford) Choledocholithiasis (Acute) Transaminitis (Acute) Obstructive jaundice (Acute) Idiopathic pancreatitis (Acute) Acute on recurrent pancreatitis (Acute) CAP (community acquired pneumonia) (Resolved) Abdominal hernia (Resolved) History of bowel resection (Resolved) History of cholecystectomy (Resolved) History of appendectomy (Resolved) Acute bronchitis (Resolved) I have discussed this patient with Dr. Maya STAT labs and CT scan of the abdomen and pelvis Code Visit Inpatient E&M: 70333 Subs Hosp L1 - POST-OP
[2018-06-21 08:08] LABS: Differential Indicated SCAN CRITERIA MET; POSITIVE COUNT NO; POSITIVE DIFFERENTIAL YES; POSITIVE MORPHOLOGY YES
[2018-06-21 08:21] LABS: ALB/GLOB Ratio 0.6 RATIO (0.9-2.4); AST(SGOT) 25 U/L (15-37); Alanine Aminotransfer ALT/SGPT 30 U/L (16-61); Albumin, Serum 2.4 g/dL (3.2-5.0); Alkaline Phosphatase 89 U/L (45-117); Anion Gap 5 (5-15); BUN 18 mg/dL (7-18); BUN/Creat Ratio 17.6 RATIO (10-20); Calcium,Total 7.9 mg/dL (8.5-10.1); Chloride 103 mmol/L (98-107); Creatinine, Serum 1.02 mg/dL (0.70-1.30); EST Glomerular Filtration Rate 78 mL/min (>60); Est Glom Filt Rate - Afr Amer 94 mL/min (>60); Estimated Creatinine Clearance 74.55 ml/min; Globulin 3.9 g/dL (2.2-4.2); Glucose 114 mg/dL (74-106); Potassium 3.4 mmol/L (3.5-5.1); Protein, Total 6.3 g/dL (6.4-8.2); Sodium Level 135 mmol/L (136-145)
[2018-06-21 08:58] LABS: Differential Comment SCANNED
[2018-06-21 09:09] LABS: Lipase 84 U/L (73-393)
--- NOTE | 2018-06-21 09:30 | PCM.PN.BLA ---
Progress Note Labs and CT scan was discussed with Dr. Maya. Recommended lipase level and 500 cc bolus was given. No surgical intervention needed at this time. Dr. Maya will evaluate patient upon his return to the office this morning. Code Visit Inpatient E&M: 16306 Subs Hosp L1 - NO CHARGE
--- NOTE | 2018-06-21 09:55 | CASEMGMT ---
RN YISSEL Face to Face with patient for initial transition planning/care coordination assessment. RN CM introduced self and role at [facility]. Patient lying in bed, alert and oriented, at bedside. Patient willing to participate in assessment and is able to answer all questions appropriately. Care providers, pharmacy, and demographics verified. Patient wishes to discharge home, is not anticipating any need for HHC at discharge. Patient states he has no further needs or concerns at this time. CM to follow for discharge planning needs that may arise. PCP: Matthew Specialists: [facility] Patel Pharmacy: [facility] Insurance: [employer] Prescription Benefit: [employer] Living Will/HPOA: No, declined additional information LNOK: Living Arrangements: Patient lives with in Condo, independent at home. Transportation: Self/ DME/HHC: Patient denies need for DME at this time. Disposition Plan: Patient to discharge home with family support and follow-up plans in place. Irais LEZAMA, RN, CM
[2018-06-21] MEDS: 0.9% NaCl Peripheral Flush Adult/Peds IV ×5 (11:11→23:13)
--- NOTE | 2018-06-21 11:24 | PN.SURG_ITS ---
Subjective: Patient is complaining of severe left upper quadrant pain. He says his pancreatitis pain is resolved. He is not having any nausea or vomiting. He is not passing any gas. - Physical Exam General: Alert, Cooperative Neck: No JVD Lungs: Normal air movement Cardiovascular: Regular rate, Regular Rhythm Abdomen: Soft, Non-Distended, Tender - Tender in the left upper quadrant. Vital Signs Temp Pulse Resp BP Pulse Ox 98.4 F 98 18 115/62 94 06/21/18 08:29 06/21/18 08:29 06/21/18 08:29 06/21/18 08:29 06/21/18 08:29 Oxygen Flow Rate (L/min) 2 Oxygen Delivery Method Nasal Cannula Weight: 248 lb 3.848 oz Body Mass Index (BMI) 35.6 Intake and Output for Last 24 Hours 06/19/18 06/20/18 06/21/18 23:59 23:59 23:59 Intake Total 1420 / 1420 3386 / 3386 625 / 625 Output Total 425 / 425 1900 / 1900 Balance 995 / 995 1486 / 1486 625 / 625 Laboratory Tests Past 24 Hrs 06/21/18 06/21/18 06/21/18 07:10 07:50 07:50 WBC 15.5 H RBC 4.03 L Hgb 12.5 L Hct 37.1 L MCV 92.1 MCH 31.0 MCHC 33.7 RDW 13.8 RDW Differential 45.5 H Plt Count 204 MPV 9.0 Immature Gran % (Auto) 0.600 Neut % (Auto) 79.5 H Lymph % (Auto) 8.6 L [place] % (Auto) 10.3 H Eos % (Auto) 0.8 Baso % (Auto) 0.2 Absolute Neuts (auto) 12.3 H Absolute Lymphs (auto) 1.33 Total Counted Not Reportable Differential Comment SCANNED Sodium 135 L Potassium 3.4 L Chloride 103 Carbon Dioxide 27.0 Anion Gap 5 BUN 18 Creatinine 1.02 Estim Creat Clear Calc 74.55 Est GFR (MDRD) Af Amer 94 Est GFR (MDRD) Non-Af 78 BUN/Creatinine Ratio 17.6 Glucose 114 H Calcium 7.9 L Total Bilirubin 1.20 H AST 25 ALT 30 Alkaline Phosphatase 89 Total Protein 6.3 L Albumin 2.4 L Globulin 3.9 Albumin/Globulin Ratio 0.6 L Lipase 84 Clinical Impression(s) from Imaging Studies ERCP X-Ray 06/19/18 13:50 IMPRESSION: ERCP in the OR. Electronically Signed: Edilberto Washburn MD at 17:18 EDT , Service support , Abdomen/Pelvis CT 06/21/18 07:40 IMPRESSION: Interval improvement in the hyperdensity involving the left lobe of the liver with the mild residual changes. A small air-fluid level is seen along the anterior aspect of the left lobe of the liver. This may be within the subcapsular region. Bibasilar atelectasis and/or infiltrates. Increased markings in the peritoneal fat surrounding the pancreas and root of the mesentery. Nonobstructive right intrarenal calculus. Electronically Signed: Ike Metcalf MD at 9:14 EDT Tel [phone], Service support , Medical Necessity - Tobacco Use Smoking Status: Former smoker Assessment/Plan All Active Problems (Last Reviewed 06/06/18 @ 14:17 by Katie Ford) Choledocholithiasis (Acute) Transaminitis (Acute) Obstructive jaundice (Acute) Idiopathic pancreatitis (Acute) Acute on recurrent pancreatitis (Acute) CAP (community acquired pneumonia) (Resolved) Abdominal hernia (Resolved) History of bowel resection (Resolved) History of cholecystectomy (Resolved) History of appendectomy (Resolved) Acute bronchitis (Resolved) 63-year-old male with biloma of the left liver 1. Patient had severe left upper quadrant pain this morning. I repeated a CAT scan with no contrast. This showed improvement of the liver collection and the contrast that was previously in this collection had decreased indicating that it is draining. It is also decreased in size. The patient's lipase has returned to normal and his LFTs are normal except for a T bili of 1.2. 2. I am unsure as to why is having more pain but it is likely associated with the fluid collection in the left lobe of the liver. Patient's white count has improved and he continues on prophylactic antibiotics to prevent cholangitis. 3. I will start the patient on clear liquids as he says his pancreatitis pain is better and his lipase is normal. I would like him to try oral pain medication to see if this controls the pain. 4. Recheck LFTs and white count in the morning. Jamel Maya MD Pager: [facility] [address] [place] [address], [address] [place] [phone] Office:
[2018-06-21] MEDS: 0.9% Normal Saline 1,000 ML 999 ML IV (16:18)
--- NOTE | 2018-06-21 16:32 | PCM.PN.SRG ---
Subjective: Patient's pain remains the same as this morning. He is developed tachycardia and hypotension and is actively receiving a fluid bolus. Objective: Significant tenderness left side of his abdomen - Physical Exam Vital Signs Temp Pulse Resp BP Pulse Ox 98.9 F 118 H 18 106/51 L 94 06/21/18 16:15 06/21/18 16:15 06/21/18 16:15 06/21/18 16:15 06/21/18 16:15 Oxygen Flow Rate (L/min) 2 Oxygen Delivery Method Nasal Cannula Weight: 248 lb 3.848 oz Body Mass Index (BMI) 35.6 Intake and Output for Last 24 Hours 06/19/18 06/20/18 06/21/18 23:59 23:59 23:59 Intake Total 1420 / 1420 3386 / 3386 1791 / 1791 Output Total 425 / 425 1900 / 1900 650 / 650 Balance 995 / 995 1486 / 1486 1141 / 1141 Laboratory Tests Past 24 Hrs 06/21/18 06/21/18 06/21/18 07:10 07:50 07:50 WBC 15.5 H RBC 4.03 L Hgb 12.5 L Hct 37.1 L MCV 92.1 MCH 31.0 MCHC 33.7 RDW 13.8 RDW Differential 45.5 H Plt Count 204 MPV 9.0 Immature Gran % (Auto) 0.600 Neut % (Auto) 79.5 H Lymph % (Auto) 8.6 L [place] % (Auto) 10.3 H Eos % (Auto) 0.8 Baso % (Auto) 0.2 Absolute Neuts (auto) 12.3 H Absolute Lymphs (auto) 1.33 Total Counted Not Reportable Differential Comment SCANNED Sodium 135 L Potassium 3.4 L Chloride 103 Carbon Dioxide 27.0 Anion Gap 5 BUN 18 Creatinine 1.02 Estim Creat Clear Calc 74.55 Est GFR (MDRD) Af Amer 94 Est GFR (MDRD) Non-Af 78 BUN/Creatinine Ratio 17.6 Glucose 114 H Calcium 7.9 L Total Bilirubin 1.20 H AST 25 ALT 30 Alkaline Phosphatase 89 Total Protein 6.3 L Albumin 2.4 L Globulin 3.9 Albumin/Globulin Ratio 0.6 L Lipase 84 Medical Necessity - Tobacco Use Smoking Status: Former smoker Assessment/Plan All Active Problems (Last Reviewed 10/02/18 @ 14:17 by Katie Wiggins Choledocholithiasis (Acute) Transaminitis (Acute) Obstructive jaundice (Acute) Idiopathic pancreatitis (Acute) Acute on recurrent pancreatitis (Acute) CAP (community acquired pneumonia) (Resolved) Abdominal hernia (Resolved) History of bowel resection (Resolved) History of cholecystectomy (Resolved) History of appendectomy (Resolved) Acute bronchitis (Resolved) At this point I think the best thing to do is transfer him to the intensive care unit. We will notify the dredge lever operator.
[2018-06-21 19:29] LABS: Absolute Neutrophil Count 16.7 X10^3/uL (2.0-7.7); Basophil# 0.02 X10^3/uL; Basophil% 0.1 % (0-1); Eosinophil# 0.04 X10^3/uL; Eosinophils% 0.2 % (0-5); Hematocrit 37.6 % (40-54); Hemoglobin 12.5 g/dl (13.0-16.5); Lymphocyte % 5.7 % (19-41); Mean Corp Hgb Conc 33.2 g/gl (32-36); Mean Corpuscular Hgb 30.4 pg (27.0-32.0); Mean Corpuscular Volume 91.5 fL (80-94); Mean Platelet Vol. 9.2 fl (6.2-12.0); Monocyte# 1.49 X10^3/uL; Monocyte% 7.7 % (0-10); Neutrophil # 16.68 X10^3/uL (2.7-7.7); Platelet Count 177 K/mm3 (150-450); RBC Distribution Width SD 46.3 fl (35.1-43.9); Red Blood Count 4.11 M/mm3 (4.6-6.2); White Blood Count 19.4 K/mm3 (4.4-11.0)
[2018-06-21 19:30] LABS: POSITIVE COUNT NO; POSITIVE DIFFERENTIAL NO; POSITIVE MORPHOLOGY NO
[2018-06-22] VITALS (20 sets, daily range): BP systolic 96–146; BP diastolic 61–94; PULSE 83–115; RESP 12–23; TEMP 36.3–37.4; O2SAT 92–97
[2018-06-22] MEDS: HYDROmorphone 1 MG/ML Syringe IV ×4 (02:10→10:22)
[2018-06-22] MEDS: 0.9% NaCl Peripheral Flush Adult/Peds IV ×5 (02:10→21:59)
[2018-06-22] MEDS: Dextrose 5%-Lactated Ringers 1,000 ML 125 ML IV ×3 (02:42→18:33)
[2018-06-22] MEDS: Ketorolac 15 MG/ML Vial IV ×3 (05:28→21:59)
[2018-06-22] MEDS: Piperacil/Tazobactam 3.375 GM/50 ML ML IV ×3 (05:28→21:59)
[2018-06-22] MEDS: proMETHazine 25 MG/ML Syringe 12.5 MG IV (05:43)
[2018-06-22 06:21] LABS: ALB/GLOB Ratio 0.5 RATIO (0.9-2.4); AST(SGOT) 16 U/L (15-37); Alanine Aminotransfer ALT/SGPT 17 U/L (16-61); Albumin, Serum 1.7 g/dL (3.2-5.0); Alkaline Phosphatase 78 U/L (45-117); Anion Gap 8 (5-15); BUN 14 mg/dL (7-18); BUN/Creat Ratio 13.1 RATIO (10-20); Calcium,Total 7.2 mg/dL (8.5-10.1); Chloride 104 mmol/L (98-107); Creatinine, Serum 1.07 mg/dL (0.70-1.30); EST Glomerular Filtration Rate 74 mL/min (>60); Est Glom Filt Rate - Afr Amer 89 mL/min (>60); Estimated Creatinine Clearance 71.07 ml/min; Globulin 3.5 g/dL (2.2-4.2); Glucose 589 mg/dL (74-106); Lipase 34 U/L (73-393); Potassium 3.7 mmol/L (3.5-5.1); Protein, Total 5.2 g/dL (6.4-8.2); Sodium Level 138 mmol/L (136-145)
[2018-06-22 06:33] LABS: Absolute Lymphocyte Count 1.08 X10^3/ul (0.83-4.51); Absolute Neutrophil Count 12.2 X10^3/uL (2.0-7.7); Basophil# 0.02 X10^3/uL; Basophil% 0.1 % (0-1); Eosinophil# 0.19 X10^3/uL; Eosinophils% 1.3 % (0-5); Hematocrit 33.5 % (40-54); Hemoglobin 10.9 g/dl (13.0-16.5); Lymphocyte # 1.08 X10^3/ul (4.0); Lymphocyte % 7.4 % (19-41); Mean Corp Hgb Conc 32.5 g/gl (32-36); Mean Corpuscular Hgb 30.5 pg (27.0-32.0); Mean Corpuscular Volume 93.8 fL (80-94); Mean Platelet Vol. 9.2 fl (6.2-12.0); Monocyte# 1.16 X10^3/uL; Monocyte% 7.9 % (0-10); Neutrophil # 12.18 X10^3/uL (2.7-7.7); Platelet Count 171 K/mm3 (150-450); RBC Distribution Width CV 14.3 % (11.6-14.6); RBC Distribution Width SD 46.9 fl (35.1-43.9); Red Blood Count 3.57 M/mm3 (4.6-6.2); White Blood Count 14.7 K/mm3 (4.4-11.0)
[2018-06-22 06:34] LABS: Differential Indicated SCAN CRITERIA MET; POSITIVE COUNT NO; POSITIVE DIFFERENTIAL NO; POSITIVE MORPHOLOGY YES
[2018-06-22 06:35] LABS: Differential Comment SCANNED
--- NOTE | 2018-06-22 06:36 | PCM.PN.SRG ---
Subjective: Patient evaluated resting comfortably in bed. He notes abdominal pain on the right lower quadrant. He notes left upper quadrant is improved. He denies nausea, vomiting. - Physical Exam General: Alert, Oriented x3, Cooperative Abdomen: Hypoactive Bowel Sounds, Distended, Tender - Acutely tender generalized Vital Signs Temp Pulse Resp BP Pulse Ox 97.3 F L 89 23 H 110/61 94 06/22/18 06:00 06/22/18 06:00 06/22/18 06:00 06/22/18 06:00 06/22/18 06:00 Oxygen Flow Rate (L/min) 2 Oxygen Delivery Method Room Air Weight: 257 lb 0.944 oz Body Mass Index (BMI) 35.6 Intake and Output for Last 24 Hours 06/20/18 06/21/18 06/22/18 23:59 23:59 23:59 Intake Total 3386 / 3386 3421 / 3421 240 / 240 Output Total 1900 / 1900 1050 / 1050 600 / 600 Balance 1486 / 1486 2371 / 2371 -360 / -360 Laboratory Tests Past 24 Hrs 06/21/18 06/21/18 06/21/18 07:10 07:50 07:50 WBC 15.5 H RBC 4.03 L Hgb 12.5 L Hct 37.1 L MCV 92.1 MCH 31.0 MCHC 33.7 RDW 13.8 RDW Differential 45.5 H Plt Count 204 MPV 9.0 Immature Gran % (Auto) 0.600 Neut % (Auto) 79.5 H Lymph % (Auto) 8.6 L [place] % (Auto) 10.3 H Eos % (Auto) 0.8 Baso % (Auto) 0.2 Absolute Neuts (auto) 12.3 H Absolute Lymphs (auto) 1.33 Total Counted Not Reportable Differential Comment SCANNED Sodium 135 L Potassium 3.4 L Chloride 103 Carbon Dioxide 27.0 Anion Gap 5 BUN 18 Creatinine 1.02 Estim Creat Clear Calc 74.55 Est GFR (MDRD) Af Amer 94 Est GFR (MDRD) Non-Af 78 BUN/Creatinine Ratio 17.6 Glucose 114 H Calcium 7.9 L Total Bilirubin 1.20 H AST 25 ALT 30 Alkaline Phosphatase 89 Total Protein 6.3 L Albumin 2.4 L Globulin 3.9 Albumin/Globulin Ratio 0.6 L Lipase 84 06/21/18 06/22/18 06/22/18 19:00 05:35 05:35 WBC 19.4 H 14.7 H RBC 4.11 L 3.57 L Hgb 12.5 L 10.9 L Hct 37.6 L 33.5 L MCV 91.5 93.8 MCH 30.4 30.5 MCHC 33.2 32.5 RDW 14.0 14.3 RDW Differential 46.3 H 46.9 H Plt Count 177 171 MPV 9.2 9.2 Immature Gran % (Auto) 0.300 0.300 Neut % (Auto) 86.0 H 83.0 H Lymph % (Auto) 5.7 L 7.4 L [place] % (Auto) 7.7 7.9 Eos % (Auto) 0.2 1.3 Baso % (Auto) 0.1 0.1 Absolute Neuts (auto) 16.7 H 12.2 H Absolute Lymphs (auto) 1.10 1.08 Total Counted Not Reportable Not Reportable Differential Comment SCANNED Sodium 138 Potassium 3.7 Chloride 104 Carbon Dioxide 26.0 Anion Gap 8 BUN 14 Creatinine 1.07 Estim Creat Clear Calc 71.07 Est GFR (MDRD) Af Amer 89 Est GFR (MDRD) Non-Af 74 BUN/Creatinine Ratio 13.1 Glucose 589 H* Calcium 7.2 L Total Bilirubin 1.50 H AST 16 ALT 17 Alkaline Phosphatase 78 Total Protein 5.2 L Albumin 1.7 L Globulin 3.5 Albumin/Globulin Ratio 0.5 L Lipase 34 L 06/22/18 06:30 WBC RBC Hgb Hct MCV MCH MCHC RDW RDW Differential Plt Count MPV Immature Gran % (Auto) Neut % (Auto) Lymph % (Auto) [place] % (Auto) Eos % (Auto) Baso % (Auto) Absolute Neuts (auto) Absolute Lymphs (auto) Total Counted Differential Comment Sodium Pending Potassium Pending Chloride Pending Carbon Dioxide Pending Anion Gap Pending BUN Pending Creatinine Pending Estim Creat Clear Calc Est GFR (MDRD) Af Amer Pending Est GFR (MDRD) Non-Af Pending BUN/Creatinine Ratio Pending Glucose Pending Calcium Pending Total Bilirubin Pending AST Pending ALT Pending Alkaline Phosphatase Pending Total Protein Pending Albumin Pending Globulin Albumin/Globulin Ratio Lipase Pending Medical Necessity - Tobacco Use Smoking Status: Former smoker Assessment/Plan All Active Problems (Last Reviewed 06/06/18 @ 14:17 by Katie Ford) Choledocholithiasis (Acute) Transaminitis (Acute) Obstructive jaundice (Acute) Idiopathic pancreatitis (Acute) Acute on recurrent pancreatitis (Acute) CAP (community acquired pneumonia) (Resolved) Abdominal hernia (Resolved) History of bowel resection (Resolved) History of cholecystectomy (Resolved) History of appendectomy (Resolved) Acute bronchitis (Resolved) Dr. Maya and Dr. Tolbert will independently evaluate this patient Continue NPO Labs pending We will continue to monitor this patient Code Visit Inpatient E&M: 31968 Subs Hosp L1
[2018-06-22 06:55] LABS: ALB/GLOB Ratio 0.5 RATIO (0.9-2.4); AST(SGOT) 18 U/L (15-37); Alanine Aminotransfer ALT/SGPT 20 U/L (16-61); Albumin, Serum 2.1 g/dL (3.2-5.0); Alkaline Phosphatase 92 U/L (45-117); Anion Gap 5 (5-15); BUN 16 mg/dL (7-18); BUN/Creat Ratio 16.3 RATIO (10-20); Calcium,Total 7.6 mg/dL (8.5-10.1); Chloride 104 mmol/L (98-107); Creatinine, Serum 0.98 mg/dL (0.70-1.30); EST Glomerular Filtration Rate 81 mL/min (>60); Est Glom Filt Rate - Afr Amer 98 mL/min (>60); Estimated Creatinine Clearance 77.59 ml/min; Globulin 3.9 g/dL (2.2-4.2); Glucose 116 mg/dL (74-106); Lipase 32 U/L (73-393); Potassium 3.5 mmol/L (3.5-5.1); Sodium Level 137 mmol/L (136-145)
[2018-06-22 07:30] LABS: Bedside Glucose 109 mg/dL (70-110)
[2018-06-22] MEDS: oxyCODONE 5 MG Tablet PO ×2 (08:32→18:56)
--- NOTE | 2018-06-22 09:30 | CASEMGMT ---
RN CM NOTE: Spoke with pt re: discharge planning/needs after ICU liberation rounds. Pt declines needing/wanting any HHC services set up and denies having any other needs/concerns at this time. CM to follow for any discharge planning needs that may arise. Eric HERNANDEZN RN CM
--- NOTE | 2018-06-22 09:51 | CON.PCM_ITS ---
Problem List (1) Choledocholithiasis Status: Acute (2) Obstructive jaundice Status: Acute (3) Idiopathic pancreatitis Status: Acute Qualifiers: (4) Acute on recurrent pancreatitis Status: Acute (5) CAP (community acquired pneumonia) Status: Resolved Qualifiers: (6) History of bowel resection Status: Resolved (7) History of cholecystectomy Status: Resolved (8) History of appendectomy Status: Resolved (9) Chronic pancreatitis Status: Chronic Qualifiers: (10) Crohn's disease of small intestine Status: Chronic Qualifiers: (11) Dyslipidemia Status: Chronic Reason for Consult Date of Consultation: 06/22/18 Reason for Consultation: Hypotension History of Present Illness: The patient is a 63 year old M, with past medical history listed below, who presented to [facility] on 06/20/2018 secondary to severe abdominal pain. Patient had reportedly had an ERCP as an outpatient on the day prior to presentation. Patient was noted to have a fluid collection in his liver and was admitted to the floor for further evaluation. While on the floor, patient did complain of abdominal pain, but overall was doing well. Yesterday, patient had acute hypotension requiring repeat bolus of IV fluids. There was some concern for possible secondary process such as sepsis, so patient was transferred to the intensive care unit for further monitoring. Since being in the intensive care unit, patient's blood pressure has remained stable. Patient currently on room air. Patient continues to report left-sided abdominal pain, but grabs his right side with any palpation. Patient was evaluated while sleeping and no grimacing was noted with palpation. Patient's lipase has continued to improve. Patient is tolerating p.o. medications, but has not been challenged with food. Patient does report similar type pains in the past associated with pancreatitis. He denies any hematuria. Review of systems is otherwise negative x10 systems. Past Medical History Past Medical History (Chronic Problems): Chronic Problems (Last Reviewed 06/06/18 @ 14:17 by Katie Ford) Gynecomazia (Chronic) Chronic pancreatitis (Chronic) Crohn's disease of small intestine (Chronic) Dyslipidemia (Chronic) Medical History: Medical History (Last Reviewed 06/06/18 @ 14:17 by Katie Ford) Gynecomazia (Chronic) N62 Acute bronchitis (Resolved) J20.9 Chronic pancreatitis (Chronic) K86.1 Crohn's disease of small intestine (Chronic) K50.00 Dyslipidemia (Chronic) E78.5 Allergies No Known Allergies Allergy (Verified 06/06/18 14:19) Home Medications: Ambulatory Orders Medication Instructions Recorded Adalimumab [Humira] 40 mg SQ Q14D 01/10/14 Omeprazole [Prilosec] 40 mg PO DAILY 01/10/14 Cholestyramine (with Sugar) 1 dose PO QHS 12/16/17 [Cholestyramine Powder] Albuterol Inhaler [Ventolin Hfa] 1 puff INHALATION Q4H PRN PRN #1 12/20/17 inhaler albuterol sulfate HFA 90 2 puff INHALATION Q6H PRN #1 device 04/12/18 mcg/actuation aerosol inhaler lipase/protease/amylase [Creon DR 3 capsule PO TIDCM 06/21/18 12,000 Unit Capsule] Surgical History: Surgical History (Last Reviewed 06/06/18 @ 14:17 by Katie Ford) Abdominal hernia (Resolved) K46.9 History of bowel resection (Resolved) Z98.890, Z90.49 History of cholecystectomy (Resolved) Z90.49 History of appendectomy (Resolved) Z90.49 Surgical History: - Psychiatric History: No pertinent psych hx Smoking Status: Former smoker - *Family History Maternal History Items: No pertinent history Paternal History Items: - - Father with a history of lung cancer and concurrent tobacco use. Review of Systems Comment: See HPI, otherwise negative x10 systems. Objective: CTs of the abdomen were personally reviewed. Agree with formal interpretation. No lung pathology outside of some mild basilar atelectasis was noted. - Physical Exam General: Alert, Oriented x3, Cooperative, No apparent distress, - - Obese. Speaking in full sentences. HEENT: Atraumatic, PERRLA, EOMI, Normocephalic, - - Slight scleral injection without icterus. Glasses in place. Oral: Moist Mucosa, No Gingival or Mucosal Lesions/ Ulcerations Neck: Supple, No JVD, No Nodes, Trachea Midline Lungs: No rhonchi, No wheeze, No rales, Diminished, - - Symmetric expansion. No dullness to percussion. Cardiovascular: Regular rate, Regular Rhythm, Normal S1, Normal S2, No murmurs, No rub noted, No Gallop Abdomen: Bowel Sounds Present, Soft, Non-Distended, Tender - Variable tolerance of palpation, but does improve with distraction Extremities: No clubbing, No cyanosis, Edema - Trace lower extremity Skin: No rashes, No breakdown Musculoskeletal: No Tenderness to Palpation of Joints or Extremities Lymphatic: No Cervical, Supraclavicular, or Inguinal Adenopathy Neurological: Cranial nerves II-XII grossly intact, Neuro grossly intact Psych/Mental Status: Alert and oriented to time, place, person, mood and affect Vital Signs Temp Pulse Resp BP Pulse Ox 36.5 C L 94 22 H 101/71 96 06/22/18 08:00 06/22/18 09:00 06/22/18 09:00 06/22/18 09:00 06/22/18 09:00 Oxygen Flow Rate (L/min) 2 Oxygen Delivery Method Room Air Weight: 116.6 kg Body Mass Index (BMI) 35.6 Intake and Output for Last 24 Hours 06/20/18 06/21/18 06/22/18 23:59 23:59 23:59 Intake Total 3386 / 3386 3421 / 3421 986 / 986 Output Total 1900 / 1900 1050 / 1050 150 / 150 Balance 1486 / 1486 2371 / 2371 836 / 836 Laboratory Tests Past 24 Hrs 06/21/18 06/22/18 06/22/18 19:00 05:35 05:35 WBC 19.4 H 14.7 H RBC 4.11 L 3.57 L Hgb 12.5 L 10.9 L Hct 37.6 L 33.5 L MCV 91.5 93.8 MCH 30.4 30.5 MCHC 33.2 32.5 RDW 14.0 14.3 RDW Differential 46.3 H 46.9 H Plt Count 177 171 MPV 9.2 9.2 Immature Gran % (Auto) 0.300 0.300 Neut % (Auto) 86.0 H 83.0 H Lymph % (Auto) 5.7 L 7.4 L [place] % (Auto) 7.7 7.9 Eos % (Auto) 0.2 1.3 Baso % (Auto) 0.1 0.1 Absolute Neuts (auto) 16.7 H 12.2 H Absolute Lymphs (auto) 1.10 1.08 Total Counted Not Reportable Not Reportable Differential Comment SCANNED Sodium 138 Potassium 3.7 Chloride 104 Carbon Dioxide 26.0 Anion Gap 8 BUN 14 Creatinine 1.07 Estim Creat Clear Calc 71.07 Est GFR (MDRD) Af Amer 89 Est GFR (MDRD) Non-Af 74 BUN/Creatinine Ratio 13.1 Glucose 589 H* Calcium 7.2 L Total Bilirubin 1.50 H AST 16 ALT 17 Alkaline Phosphatase 78 Total Protein 5.2 L Albumin 1.7 L Globulin 3.5 Albumin/Globulin Ratio 0.5 L Lipase 34 L 06/22/18 06:30 WBC RBC Hgb Hct MCV MCH MCHC RDW RDW Differential Plt Count MPV Immature Gran % (Auto) Neut % (Auto) Lymph % (Auto) [place] % (Auto) Eos % (Auto) Baso % (Auto) Absolute Neuts (auto) Absolute Lymphs (auto) Total Counted Differential Comment Sodium 137 Potassium 3.5 Chloride 104 Carbon Dioxide 28.0 Anion Gap 5 BUN 16 Creatinine 0.98 Estim Creat Clear Calc 77.59 Est GFR (MDRD) Af Amer 98 Est GFR (MDRD) Non-Af 81 BUN/Creatinine Ratio 16.3 Glucose 116 H Calcium 7.6 L Total Bilirubin 1.80 H AST 18 ALT 20 Alkaline Phosphatase 92 Total Protein 6.0 L Albumin 2.1 L Globulin 3.9 Albumin/Globulin Ratio 0.5 L Lipase 32 L POC Glucose 06/22/18 06:37 POC Glucose 109 Clinical Impression(s) from Imaging Studies ERCP X-Ray 06/19/18 13:50 IMPRESSION: ERCP in the OR. Electronically Signed: Edilberto Washburn MD at 17:18 EDT , Service support , Abdomen CT 06/19/18 16:43 IMPRESSION: There is a mass within the left lobe of the liver which has the appearance of layering contrast. This could be extravasation of contrast due to acute hemorrhage related to perforation or extravasation of the biliary tree during ERCP... Previously direct gastrohepatic perforation is not entirely excluded although there is no free air or extravasated contrast seen within the abdomen at this time. Clinical correlation is recommended Tagged red blood cell study would be helpful for further evaluation N.B. : The above information has been verbally conveyed by Edilberto Washburn MD to George Foley RN, on 06/19/2018 20:18:19 (ET). Electronically Signed: Edilberto Washburn MD at 20:17 EDT , Service support , ADDENDUM: 06/19/182058 ADDENDUM: 06/19/182102 Abdomen/Pelvis CT 06/21/18 07:40 IMPRESSION: Interval improvement in the hyperdensity involving the left lobe of the liver with the mild residual changes. A small air-fluid level is seen along the anterior aspect of the left lobe of the liver. This may be within the subcapsular region. Bibasilar atelectasis and/or infiltrates. Increased markings in the peritoneal fat surrounding the pancreas and root of the mesentery. Nonobstructive right intrarenal calculus. Electronically Signed: Ike Metcalf MD at 9:14 EDT Tel [phone], Service support , Assessment/Plan RECOMMENDATIONS: 1. Initiation of p.o. diet per surgery 2. Likely okay to discontinue antibiotics after 48 hours if afebrile 3. Increase activity as tolerated 4. Okay to leave the intensive care unit 5. Hemodynamically stable on room air. Will sign off from a critical care perspective. Please call with any issues. IMPRESSIONS: 1. Transient hypotension Unclear etiology at this time. Patient continues to have improvement in lipase despite continuation of reported pain. Patient did not have a fever overnight. Tachycardia is much improved. Unclear if patient had an element of vasovagal response, but tachycardia was noted, so orthostatic hypotension would be more likely. Patient is not on any alpha blockers for prostate. Patient does not endorse chronic steroid use, so adrenal insufficiency would be unlikely. Patient has had some decrease in hemoglobin, but no obvious clinical signs of bleeding are noted. Renal function is within normal limits, but accumulation of opiate medications needs to be watched closely. 2. Crohn's disease/dyslipidemia/obesity/history of bowel resection/chronic pain syndrome Complicates care, management, recovery and prognosis. Likely okay to continue with baseline medications. Code Visit Inpatient E&M: 31106 Init Hosp L2
[2018-06-22] MEDS: Ondansetron 4 MG/2 ML Vial IV (18:29)
[2018-06-22] MEDS: Cholestyramine/Sucrose 4 GM/PACKET 1 GM PO (21:59)
[2018-06-23] MEDS: Dextrose 5%-Lactated Ringers 1,000 ML 125 ML IV ×3 (01:21→17:56)
[2018-06-23] MEDS: oxyCODONE 5 MG Tablet PO ×2 (04:02→10:24)
[2018-06-23 04:06] VITALS: BP 138/88; PULSE 95; RESP 20; TEMP 36.7; O2SAT 93
[2018-06-23] MEDS: Piperacil/Tazobactam 3.375 GM/50 ML ML IV ×3 (05:24→21:21)
[2018-06-23] MEDS: Ketorolac 15 MG/ML Vial IV ×3 (05:24→21:21)
[2018-06-23] MEDS: 0.9% NaCl Peripheral Flush Adult/Peds IV ×7 (05:24→14:45)
[2018-06-23 06:00] LABS: Absolute Lymphocyte Count 1.05 X10^3/ul (0.83-4.51); Absolute Neutrophil Count 14.3 X10^3/uL (2.0-7.7); Basophil# 0.03 X10^3/uL; Basophil% 0.2 % (0-1); Eosinophil# 0.49 X10^3/uL; Eosinophils% 2.8 % (0-5); Hematocrit 35.8 % (40-54); Lymphocyte # 1.05 X10^3/ul (4.0); Lymphocyte % 5.9 % (19-41); Mean Corp Hgb Conc 33.5 g/gl (32-36); Mean Corpuscular Hgb 30.6 pg (27.0-32.0); Mean Corpuscular Volume 91.3 fL (80-94); Mean Platelet Vol. 9.3 fl (6.2-12.0); Monocyte# 1.79 X10^3/uL; Monocyte% 10.1 % (0-10); Neutrophil # 14.33 X10^3/uL (2.7-7.7); Neutrophil % 80.4 % (47-70); Platelet Count 195 K/mm3 (150-450); RBC Distribution Width SD 46.2 fl (35.1-43.9); Red Blood Count 3.92 M/mm3 (4.6-6.2); White Blood Count 17.8 K/mm3 (4.4-11.0)
[2018-06-23 06:04] LABS: Differential Indicated SCAN CRITERIA MET; POSITIVE COUNT NO; POSITIVE DIFFERENTIAL YES; POSITIVE MORPHOLOGY YES
[2018-06-23 06:25] LABS: ALB/GLOB Ratio 0.4 RATIO (0.9-2.4); AST(SGOT) 13 U/L (15-37); Alanine Aminotransfer ALT/SGPT 16 U/L (16-61); Albumin, Serum 1.8 g/dL (3.2-5.0); Alkaline Phosphatase 131 U/L (45-117); Anion Gap 7 (5-15); BUN 10 mg/dL (7-18); BUN/Creat Ratio 11.7 RATIO (10-20); Chloride 104 mmol/L (98-107); Creatinine, Serum 0.85 mg/dL (0.70-1.30); EST Glomerular Filtration Rate 96 mL/min (>60); Est Glom Filt Rate - Afr Amer 116 mL/min (>60); Estimated Creatinine Clearance 89.46 ml/min; Globulin 4.1 g/dL (2.2-4.2); Glucose 128 mg/dL (74-106); Potassium 3.3 mmol/L (3.5-5.1); Protein, Total 5.9 g/dL (6.4-8.2); Sodium Level 138 mmol/L (136-145)
--- NOTE | 2018-06-23 08:24 | NM_ITS ---
CLINICAL: 3-year-old male with history of abdominal pain status post cholecystectomy. RADIONUCLIDE HEPATOBILIARY SCINTIGRAPHY COMPARISON: CT of the abdomen-pelvis report 06/21/2018 FINDINGS: Following the intravenous administration of 5.7 mCi of 99m Tc Mebrofenin, hepatobiliary images reveal: 1. Relatively prompt and homogeneous radiopharmaceutical concentration is noted by a normal sized liver. No parenchymal defects are identified. 2. Gallbladder activity is not identified during 60 minutes of sequential imaging commensurate with known history of prior cholecystectomy. 3. Small intestinal tract is observed at 26-27 minutes post radiopharmaceutical administration. 4. Washout of the radiopharmaceutical by the hepatic parenchyma appears qualitatively delayed. 5. There is scintigraphic evidence of duodenal-gastric reflux initiating at approximately 56 minutes following tracer injection. NM/Hepatobilliary Imaging IMPRESSION: 1. Nonvisualization of the gallbladder is consistent with prior cholecystectomy. 2. There is scintigraphic evidence of duodenal-gastric reflux. 3. Hepatocellular-polygonal cell dysfunction is defined with regard given to qualitatively delayed washout of the radiopharmaceutical by the hepatic parenchyma. 4. Further evaluation of this individual may be undertaken utilizing pre-examination CCK quantitative hepatobiliary scintigraphy to exclude the presence of post cholecystectomy syndrome-Sphincter of Oddi dysfunction. (Crow et al, J Nucl Med 33: 1216, 1992). Electronically Signed: Griffin Brooks DO at 10:55 EDT Tel , Service support ,
--- NOTE | 2018-06-23 08:42 | NURSING ---
Going down to have HIDA scan now at this time via bed, brought by Marcelo LUCIANO.
[2018-06-23 08:43] VITALS: BP 141/81; PULSE 83; RESP 20; TEMP 36.7; O2SAT 94
--- NOTE | 2018-06-23 09:49 | NURSING ---
pt is still off the floor in [employer].
--- NOTE | 2018-06-23 11:18 | PCM.PN.SRG ---
Subjective: Pain has improved today. Still has an elevation in his white count and today his alkaline phosphatase actually went up. Objective: Soft minimally distended still slightly tender to touch. - Physical Exam Vital Signs Temp Pulse Resp BP Pulse Ox 98.1 F 83 20 H 141/81 H 94 06/23/18 08:43 06/23/18 08:43 06/23/18 08:43 06/23/18 08:43 06/23/18 08:43 Oxygen Flow Rate (L/min) 2 Oxygen Delivery Method Room Air Weight: 252 lb 6.868 oz Body Mass Index (BMI) 35.6 Intake and Output for Last 24 Hours 06/21/18 06/22/18 06/23/18 23:59 23:59 23:59 Intake Total 3421 / 3421 2052 / 2052 2672 / 2672 Output Total 1050 / 1050 650 / 650 1450 / 1450 Balance 2371 / 2371 1402 / 1402 1222 / 1222 Laboratory Tests Past 24 Hrs 06/23/18 06/23/18 05:35 05:35 WBC 17.8 H RBC 3.92 L Hgb 12.0 L Hct 35.8 L MCV 91.3 MCH 30.6 MCHC 33.5 RDW 14.0 RDW Differential 46.2 H Plt Count 195 MPV 9.3 Immature Gran % (Auto) 0.600 Neut % (Auto) 80.4 H Lymph % (Auto) 5.[address] [place] % (Auto) 10.1 H Eos % (Auto) 2.8 Baso % (Auto) 0.2 Absolute Neuts (auto) 14.3 H Absolute Lymphs (auto) 1.05 Total Counted Not Reportable Differential Comment Sodium 138 Potassium 3.3 L Chloride 104 Carbon Dioxide 27.0 Anion Gap 7 BUN 10 Creatinine 0.85 Estim Creat Clear Calc 89.46 Est GFR (MDRD) Af Amer 116 Est GFR (MDRD) Non-Af 96 BUN/Creatinine Ratio 11.7 Glucose 128 H Calcium 8.0 L Total Bilirubin 1.70 H AST 13 L ALT 16 Alkaline Phosphatase 131 H Total Protein 5.9 L Albumin 1.8 L Globulin 4.1 Albumin/Globulin Ratio 0.4 L Medical Necessity - Tobacco Use Smoking Status: Former smoker Assessment/Plan All Active Problems (Last Reviewed 06/06/18 @ 14:17 by Katie S Ford) Choledocholithiasis (Acute) Transaminitis (Acute) Obstructive jaundice (Acute) Idiopathic pancreatitis (Acute) Acute on recurrent pancreatitis (Acute) CAP (community acquired pneumonia) (Resolved) Abdominal hernia (Resolved) History of bowel resection (Resolved) History of cholecystectomy (Resolved) History of appendectomy (Resolved) Acute bronchitis (Resolved) I did obtain a HIDA scan which did not show any obvious signs of leak. In addition I have consulted infectious disease to hopefully help in the antibiotic choice in looking for potential infectious source for his elevation in his white count. We will DC his Tavarez. PICC line was just placed yesterday and I do not think it is a source of the section.
--- NOTE | 2018-06-23 11:39 | NURSING ---
Tavarez taken out at this time. Pt sitting up to edge of bed and PICC line covered with with bag so that pt can get in shower.
[2018-06-23] MEDS: Ondansetron 4 MG/2 ML Vial IV (12:37)
[2018-06-23 12:45] VITALS: BP 131/73; PULSE 95; RESP 18; TEMP 37.3; O2SAT 91
--- NOTE | 2018-06-23 12:46 | NURSING ---
After shower, pt was too tired to sit in chair or walk. back in bed. Now c/o nausea. Antimetic given in IV.
[2018-06-23 14:30] VITALS: O2SAT 94
[2018-06-23 14:31] VITALS: BP 120/68; PULSE 91; RESP 20; TEMP 36.7; O2SAT 94
--- NOTE | 2018-06-23 15:29 | PCM.HP.ID ---
Problem List (1) Acute on recurrent pancreatitis Status: Acute Reason for Consult: leukocytosis Consulted by: Dr. Tolbert History of Present Illness: The patient is a 63 year old M with Crohn's on Humira for several years who had biliary stent placed about a month ago by Dr. Maya. [place] much better, pain and nausea nearly resolved, taken back for outpt ERCP for stent removal. Post-procedure on 06/19 had severe abd pain, admitted. CT scan showed large bilioma. Started on zosyn, still with significant abd pain and leukocytosis. CT was repeated and showed some improvement. No fever or chills. No cough or SOB. No diarrhea. Pain is improved today. Full ROS performed and neg except as noted above. - Medical History Past Medical History (Chronic Problems): Chronic Problems (Last Reviewed 06/06/18 @ 14:17 by Katie Ford) Gynecomazia (Chronic) Chronic pancreatitis (Chronic) Crohn's disease of small intestine (Chronic) Dyslipidemia (Chronic) Allergies/Adverse Reactions: Allergies No Known Allergies Allergy (Verified 06/06/18 14:19) Home Medications: Ambulatory Orders Medication Instructions Recorded Adalimumab [Humira] 40 mg SQ Q14D 01/10/14 Omeprazole [Prilosec] 40 mg PO DAILY 01/10/14 Cholestyramine (with Sugar) 1 dose PO QHS 12/16/17 [Cholestyramine Powder] Albuterol Inhaler [Ventolin Hfa] 1 puff INHALATION Q4H PRN PRN #1 12/20/17 inhaler albuterol sulfate HFA 90 2 puff INHALATION Q6H PRN #1 device 04/12/18 mcg/actuation aerosol inhaler lipase/protease/amylase [Maira ROSARIO 3 capsule PO TIDCM 06/21/18 12,000 Unit Capsule] - Social History SMOKING STATUS:: Former smoker Vital Signs Temp Pulse Resp BP Pulse Ox 98.0 F 91 20 H 120/68 94 06/23/18 14:31 06/23/18 14:31 06/23/18 14:31 06/23/18 14:31 06/23/18 14:31 Oxygen Flow Rate (L/min) 2 Oxygen Delivery Method Room Air Weight: 114.5 kg Body Mass Index (BMI) 35.6 Laboratory Tests Past 24 Hrs 10/19/18 10/19/18 05:35 05:35 WBC 17.8 H RBC 3.92 L Hgb 12.0 L Hct 35.8 L MCV 91.3 MCH 30.6 MCHC 33.5 RDW 14.0 RDW Differential 46.2 H Plt Count 195 MPV 9.3 Immature Gran % (Auto) 0.600 Neut % (Auto) 80.4 H Lymph % (Auto) 5.9 L [place] % (Auto) 10.1 H Eos % (Auto) 2.8 Baso % (Auto) 0.2 Absolute Neuts (auto) 14.3 H Absolute Lymphs (auto) 1.05 Total Counted Not Reportable Differential Comment Sodium 138 Potassium 3.3 L Chloride 104 Carbon Dioxide 27.0 Anion Gap 7 BUN 10 Creatinine 0.85 Estim Creat Clear Calc 89.46 Est GFR (MDRD) Af Amer 116 Est GFR (MDRD) Non-Af 96 BUN/Creatinine Ratio 11.7 Glucose 128 H Calcium 8.0 L Total Bilirubin 1.70 H AST 13 L ALT 16 Alkaline Phosphatase 131 H Total Protein 5.9 L Albumin 1.8 L Globulin 4.1 Albumin/Globulin Ratio 0.4 L - Other Studies Radiology: [] reviewed Other Studies: [] Route of nutrition/ use of supplements: [] Nutritional Intake: [] IV Site: [] Tavarez Catheter: [] - Physical Exam General: Alert, Oriented x3, Cooperative, No apparent distress HEENT: Atraumatic, PERRLA, EOMI Neck: Supple, No Nodes Lungs: Clear to auscultation, Normal air movement Cardiovascular: Regular rate, Regular Rhythm Abdomen: Bowel Sounds Present, Soft, Non-Distended, - - moderate tenderness across epigastric area Extremities: No edema Skin: No rashes IV Site: PICC, without redness Musculoskeletal: No Tenderness to Palpation of Joints or Extremities Neurological: Cranial nerves II-XII grossly intact - Assessment/Plan Antibiotics: [] Assessment/Plan: [] 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 Repeat CT showed a lot of improvement. HIDA did not show leak this AM. Pain slightly improved today. Wbc improved overall from previous high, but still elevated. He is immunosuppressed due to Humira (reports negative TB screening at time of starting). Looking back, wbc is typically elevated going back 5-6 years on inpatient and outpt checks, so he may not be too far from his normal baseline. Overall, appears to be slowing improving. Would recommend continuing zosyn for now. Low suspicion for MRSA at this point. If condition worsens, would change zosyn to meropenem. Will follow, thank you, d/w Dr. Tolbert
[2018-06-23 20:30] VITALS: BP 126/70; PULSE 91; RESP 20; TEMP 36.9; O2SAT 92
[2018-06-23] MEDS: Cholestyramine/Sucrose 4 GM/PACKET 1 GM PO (21:21)
[2018-06-24] VITALS (10 sets, daily range): BP systolic 141–155; BP diastolic 73–93; PULSE 87–98; RESP 16–20; TEMP 37.3–37.4; O2SAT 93–97
[2018-06-24] MEDS: Ketorolac 15 MG/ML Vial IV ×3 (05:23→21:57)
[2018-06-24] MEDS: Piperacil/Tazobactam 3.375 GM/50 ML ML IV ×3 (05:23→21:57)
[2018-06-24] MEDS: Dextrose 5%-Lactated Ringers 1,000 ML 75 ML IV ×2 (05:23→17:49)
[2018-06-24] MEDS: 0.9% NaCl Peripheral Flush Adult/Peds IV ×2 (05:24→13:05)
[2018-06-24 05:50] LABS: Absolute Lymphocyte Count 1.16 X10^3/ul (0.83-4.51); Absolute Neutrophil Count 14.8 X10^3/uL (2.0-7.7); Basophil# 0.03 X10^3/uL; Basophil% 0.2 % (0-1); Eosinophil# 0.62 X10^3/uL; Eosinophils% 3.2 % (0-5); Hematocrit 35.1 % (40-54); Hemoglobin 11.8 g/dl (13.0-16.5); Lymphocyte # 1.16 X10^3/ul (4.0); Lymphocyte % 6.1 % (19-41); Mean Corp Hgb Conc 33.6 g/gl (32-36); Mean Corpuscular Hgb 30.6 pg (27.0-32.0); Mean Corpuscular Volume 90.9 fL (80-94); Mean Platelet Vol. 9.4 fl (6.2-12.0); Monocyte# 2.35 X10^3/uL; Monocyte% 12.3 % (0-10); Neutrophil # 14.82 X10^3/uL (2.7-7.7); Neutrophil % 77.6 % (47-70); Platelet Count 183 K/mm3 (150-450); RBC Distribution Width CV 14.2 % (11.6-14.6); RBC Distribution Width SD 47.3 fl (35.1-43.9); Red Blood Count 3.86 M/mm3 (4.6-6.2); White Blood Count 19.1 K/mm3 (4.4-11.0)
[2018-06-24 05:52] LABS: Differential Indicated SCAN CRITERIA MET; POSITIVE COUNT NO; POSITIVE DIFFERENTIAL YES; POSITIVE MORPHOLOGY YES
[2018-06-24 05:58] LABS: ALB/GLOB Ratio 0.4 RATIO (0.9-2.4); AST(SGOT) 14 U/L (15-37); Alanine Aminotransfer ALT/SGPT 15 U/L (16-61); Albumin, Serum 1.8 g/dL (3.2-5.0); Alkaline Phosphatase 170 U/L (45-117); Anion Gap 7 (5-15); BUN 9 mg/dL (7-18); BUN/Creat Ratio 11.1 RATIO (10-20); Chloride 104 mmol/L (98-107); Creatinine, Serum 0.81 mg/dL (0.70-1.30); EST Glomerular Filtration Rate 102 mL/min (>60); Est Glom Filt Rate - Afr Amer 123 mL/min (>60); Estimated Creatinine Clearance 93.88 ml/min; Glucose 115 mg/dL (74-106); Lipase 24 U/L (73-393); Potassium 3.3 mmol/L (3.5-5.1); Protein, Total 5.8 g/dL (6.4-8.2); Sodium Level 139 mmol/L (136-145)
[2018-06-24 06:11] LABS: Differential Comment SCANNED
--- NOTE | 2018-06-24 07:59 | PCM.PN.SRG ---
Subjective: Patient states that he feels better today. He is almost at his baseline with abdominal pain. He is not complaining of any nausea vomiting. Objective: Abdomen is soft still some tenderness to deep palpation. But no rebound guarding or peritoneal signs - Physical Exam Vital Signs Temp Pulse Resp BP Pulse Ox 99.4 F H 93 20 H 141/73 H 95 06/24/18 02:30 06/24/18 02:30 06/24/18 02:30 06/24/18 02:30 06/24/18 02:30 Oxygen Flow Rate (L/min) 2 Oxygen Delivery Method Room Air Weight: 252 lb 6.868 oz Body Mass Index (BMI) 35.6 Intake and Output for Last 24 Hours 06/22/18 06/23/18 06/24/18 23:59 23:59 23:59 Intake Total 2051 / 2052 3813 / 3813 1388 / 1388 Output Total 650 / 650 2325 / 2325 1000 / 1000 Balance 1402 / 1402 1488 / 1488 388 / 388 Laboratory Tests Past 24 Hrs 06/24/18 06/24/18 05:20 05:20 WBC 19.1 H RBC 3.86 L Hgb 11.8 L Hct 35.1 L MCV 90.9 MCH 30.6 MCHC 33.6 RDW 14.2 RDW Differential 47.3 H Plt Count 183 MPV 9.4 Immature Gran % (Auto) 0.600 Neut % (Auto) 77.6 H Lymph % (Auto) 6.1 L [place] % (Auto) 12.3 H Eos % (Auto) 3.2 Baso % (Auto) 0.2 Absolute Neuts (auto) 14.8 H Absolute Lymphs (auto) 1.16 Total Counted Not Reportable Differential Comment SCANNED Diff Path Review January foll Sodium 139 Potassium 3.3 L Chloride 104 Carbon Dioxide 28.0 Anion Gap 7 BUN 9 Creatinine 0.81 Estim Creat Clear Calc 93.88 Est GFR (MDRD) Af Amer 123 Est GFR (MDRD) Non-Af 102 BUN/Creatinine Ratio 11.1 Glucose 115 H Calcium 8.0 L Total Bilirubin 1.70 H AST 14 L ALT 15 L Alkaline Phosphatase 170 H Total Protein 5.8 L Albumin 1.8 L Globulin 4.0 Albumin/Globulin Ratio 0.4 L Lipase 24 L Medical Necessity - Tobacco Use Smoking Status: Former smoker Assessment/Plan All Active Problems (Last Reviewed 06/06/18 @ 14:17 by Katie Ford) Choledocholithiasis (Acute) Transaminitis (Acute) Obstructive jaundice (Acute) Idiopathic pancreatitis (Acute) Acute on recurrent pancreatitis (Acute) CAP (community acquired pneumonia) (Resolved) Abdominal hernia (Resolved) History of bowel resection (Resolved) History of cholecystectomy (Resolved) History of appendectomy (Resolved) Acute bronchitis (Resolved) His potassium is low we are going to give him some IV potassium. We will recheck his potassium level after its infused through his PICC line. In addition his white blood cell count elevated again to 19,000. He is currently on Zosyn and we will continue this until recommendations from infectious disease change.
[2018-06-24] MEDS: Ondansetron 4 MG/2 ML Vial IV ×2 (08:31→20:04)
[2018-06-24] MEDS: HYDROmorphone 1 MG/ML Syringe IV ×4 (10:30→22:18)
[2018-06-24] MEDS: Albuterol 2.5 MG/3 ML VIAL.NEB. INHALATION (12:12)
[2018-06-24 13:37] LABS: Potassium 3.6 mmol/L (3.5-5.1)
[2018-06-24] MEDS: Cholestyramine/Sucrose 4 GM/PACKET 1 GM PO (21:57)
[2018-06-25] VITALS (11 sets, daily range): BP systolic 142–160; BP diastolic 75–87; PULSE 81–113; RESP 18; TEMP 36.6–36.9; O2SAT 93–96
[2018-06-25] MEDS: HYDROmorphone 1 MG/ML Syringe IV ×4 (02:14→21:51)
[2018-06-25] MEDS: Piperacil/Tazobactam 3.375 GM/50 ML ML IV ×3 (05:19→21:48)
[2018-06-25] MEDS: Ketorolac 15 MG/ML Vial IV (05:20)
[2018-06-25] MEDS: Dextrose 5%-Lactated Ringers 1,000 ML 75 ML IV ×2 (08:20→21:48)
[2018-06-25] MEDS: hydrALAZINE 20 MG/ML Vial IV (08:20)
[2018-06-25] MEDS: Ondansetron 4 MG/2 ML Vial IV (09:35)
--- NOTE | 2018-06-25 10:17 | PCM.PN.SRG ---
Subjective: Starting to have some diarrhea today. Complaining of more abdominal pain. Patient thinks that his Crohn's disease is flaring up. A complete turnaround from yesterday. Objective: Patient has voluntary guarding. Really no change in his abdominal exam other than this. He has normal active bowel sounds. - Physical Exam Vital Signs Temp Pulse Resp BP Pulse Ox 98.2 F 93 18 160/87 H 94 06/25/18 08:30 06/25/18 08:30 06/25/18 08:30 06/25/18 08:30 06/25/18 08:30 Oxygen Flow Rate (L/min) 2 Oxygen Delivery Method Room Air Weight: 253 lb 15.56 oz Body Mass Index (BMI) 35.6 Intake and Output for Last 24 Hours 06/23/18 06/24/18 06/25/18 23:59 23:59 23:59 Intake Total 3813 / 3813 3894 / 3894 388 / 388 Output Total 2325 / 2325 2475 / 2475 750 / 750 Balance 1488 / 1488 1419 / 1419 -362 / -362 Laboratory Tests Past 24 Hrs 06/24/18 13:05 Potassium 3.6 Medical Necessity - Tobacco Use Smoking Status: Former smoker Assessment/Plan All Active Problems (Last Reviewed 06/06/18 @ 14:17 by Katie Ford) Choledocholithiasis (Acute) Transaminitis (Acute) Obstructive jaundice (Acute) Idiopathic pancreatitis (Acute) Acute on recurrent pancreatitis (Acute) CAP (community acquired pneumonia) (Resolved) Abdominal hernia (Resolved) History of bowel resection (Resolved) History of cholecystectomy (Resolved) History of appendectomy (Resolved) Acute bronchitis (Resolved) Labs are pending at this time. Will remain on Zosyn. If diarrhea persists will obtain stool cultures for C. difficile.
[2018-06-25 10:46] LABS: Hematocrit 38.2 % (40-54); Mean Corpuscular Hgb 30.4 pg (27.0-32.0); Mean Corpuscular Volume 89.5 fL (80-94); RBC Distribution Width CV 14.5 % (11.6-14.6); RBC Distribution Width SD 47.4 fl (35.1-43.9); Red Blood Count 4.27 M/mm3 (4.6-6.2); White Blood Count 19.8 K/mm3 (4.4-11.0)
[2018-06-25 10:47] LABS: Mean Platelet Vol. 9.4 fl (6.2-12.0); Platelet Count 248 K/mm3 (150-450)
[2018-06-25 10:54] LABS: Differential Indicated MANUAL DIFF; POSITIVE COUNT YES; POSITIVE DIFFERENTIAL YES; POSITIVE MORPHOLOGY YES
[2018-06-25 11:03] LABS: Anion Gap 6 (5-15); BUN 8 mg/dL (7-18); Calcium,Total 8.3 mg/dL (8.5-10.1); Chloride 102 mmol/L (98-107); Creatinine, Serum 0.89 mg/dL (0.70-1.30); EST Glomerular Filtration Rate 91 mL/min (>60); Est Glom Filt Rate - Afr Amer 110 mL/min (>60); Estimated Creatinine Clearance 85.44 ml/min; Glucose 120 mg/dL (74-106); Potassium 4.1 mmol/L (3.5-5.1); Sodium Level 135 mmol/L (136-145)
[2018-06-25 11:13] LABS: Eosinophil 1 % (0-5); Lymphocyte 12 % (19-41); Metamyelocyte 6 % (0-1); Monocyte 3 % (0-10); Neutrophil-Band 4 % (0-5); Neutrophil-Segmented 74 % (47-70); Platelet Estimate ADEQUATE (ADEQ); Red Cell Morphology NORM C+C NORMAL (NORM C&C); Total Cells Counted 100 (MANUAL DIFF)
[2018-06-25 11:14] LABS: Absolute Neutrophil Count 15.4 X10^3/uL (2.0-7.7)
[2018-06-25] MEDS: oxyCODONE 5 MG Tablet PO ×2 (11:37→17:13)
[2018-06-25] MEDS: Acetaminophen 325 MG Tablet 650 MG PO (11:38)
[2018-06-25] MEDS: proMETHazine 25 MG/ML Syringe 12.5 MG IV (11:39)
[2018-06-25] MEDS: Albuterol 2.5 MG/3 ML VIAL.NEB. INHALATION (17:30)
[2018-06-25] MEDS: Cholestyramine/Sucrose 4 GM/PACKET 1 GM PO (21:48)
[2018-06-26] VITALS (10 sets, daily range): BP systolic 119–131; BP diastolic 66–81; PULSE 103–115; RESP 18; TEMP 36.7–37.7; O2SAT 87–96
[2018-06-26] MEDS: HYDROmorphone 1 MG/ML Syringe IV ×7 (03:38→23:04)
[2018-06-26] MEDS: Piperacil/Tazobactam 3.375 GM/50 ML ML IV ×3 (05:44→21:27)
[2018-06-26] MEDS: oxyCODONE 5 MG Tablet PO (05:46)
[2018-06-26] MEDS: 0.9% NaCl Peripheral Flush Adult/Peds IV ×4 (07:59→18:16)
--- NOTE | 2018-06-26 08:08 | NURSING ---
PT PLACED ON O2 2L NC
--- NOTE | 2018-06-26 08:14 | NURSING ---
REFUSING BREAKFAST @ THIS TIME
--- NOTE | 2018-06-26 10:10 | CT_ITS ---
STUDY: CT ABDOMEN AND PELVIS WITH CONTRAST REASON FOR EXAM: Male, 63 years old. Abdominal pain. History of pancreatitis. RADIATION DOSAGE (If Supplied By Facility): CTDIvol = ( 17.05 ) mGy, DLP = ( 1349.16 ) mGycm TECHNIQUE: Transaxial images were obtained from the dome of the diaphragm to the symphysis pubis with oral contrast. 100 ml of Isovue 300 contrast was administered. Sagittal and coronal images were reconstructed. Individualized dose optimization techniques were used for this CT. COMPARISON: 06/19/2017 and 06/21/2018 FINDINGS: There is a small left pleural effusion and trace right pleural effusion with overlying atelectasis. The visualized portions of the heart and pericardium are within normal limits. There is a 12.3 x 6.3 cm loculated air and fluid collection along the anterior margin of the left lobe of the liver. This is increased in size when compared with the prior exam. There is a loculated fluid collection along the posterior aspect of the left lobe of the liver which measures approximately 8.8 x 3.4 cm. This is new when compared with the prior exam. These likely represent pseudocysts. However, infection cannot be excluded. The previously seen contrast within the larger collection has resolved. There are no focal hepatic lesions. The spleen is normal in size. There is mild stranding adjacent to the pancreas which likely represents acute pancreatitis. The adrenal glands are within normal limits. There are no renal or ureteral stones. There is no hydronephrosis. There are no focal renal lesions. Normal visualized stomach. There is no bowel obstruction or inflammation. The appendix is not visualized, but there are no findings to suggest acute appendicitis. The aorta is normal in caliber. There is a small amount of free fluid adjacent to the spleen and in the pelvis. There is no free air. There are no destructive osseous lesions. CT/Abdomen/Pelvis WITH Contrast IMPRESSION: 12.3 x 6.3 cm loculated air and fluid collection along the anterior margin of the left lobe of the liver. This is increased in size when compared with the prior exam. New loculated fluid collection along the posterior aspect of the left lobe of the liver which measures approximately 8.8 x 3.4 cm. These likely represent pseudocysts. However, infection cannot be excluded. Small amount of free fluid. No free air. Mild stranding adjacent to the pancreas which likely represents acute pancreatitis. Small left pleural effusion and trace right pleural effusion with overlying atelectasis. Electronically Signed: Itz Hayden, at 14:17 EDT Tel , Service support ,
--- NOTE | 2018-06-26 10:40 | PCM.PN.SRG ---
Subjective: Patient evaluated resting comfortably in bed. He continues to note same amount of abdominal discomfort. He has had diarrhea. He believes he is having a Crohn's flare. He denies nausea, vomiting. He notes anything that is cold causing abdominal discomfort. Patient is currently on clear liquids. He notes having no appetite. - Physical Exam General: Alert, Oriented x3, Cooperative Abdomen: Bowel Sounds Present, Passing Flatus, Distended, Obese, Guarding, Tender - tenderness to light palpation in the LUQ Vital Signs Temp Pulse Resp BP Pulse Ox 98.7 F 103 H 18 123/73 H 90 06/26/18 08:06 06/26/18 08:06 06/26/18 08:06 06/26/18 08:06 06/26/18 08:06 Oxygen Flow Rate (L/min) 2 Oxygen Delivery Method Room Air Weight: 254 lb 3.088 oz Body Mass Index (BMI) 35.6 Intake and Output for Last 24 Hours 06/24/18 06/25/18 06/26/18 23:59 23:59 23:59 Intake Total 3894 / 3894 1722 / 1722 1987 / 1987 Output Total 2475 / 2475 1650 / 1650 1100 / 1100 Balance 1419 / 1419 72 / 72 888 / 888 Laboratory Tests Past 24 Hrs 06/25/18 06/25/18 10:23 10:23 WBC 19.8 H RBC 4.27 L Hgb 13.0 Hct 38.2 L MCV 89.5 MCH 30.4 MCHC 34.0 RDW 14.5 RDW Differential 47.4 H Plt Count 248 MPV 9.4 Neut % (Auto) Not Reportable Absolute Neuts (auto) 15.4 H Absolute Lymphs (auto) 1.40 Total Counted 100 Neutrophils % (Manual) 74 H Band Neutrophils % 4 Lymphocytes % (Manual) 12 L Monocytes % (Manual) 3 Eosinophils % (Manual) 1 Metamyelocytes % 6 H Diff Path Review May foll Platelet Estimate ADEQUATE RBC Morphology NORM C+C Sodium 135 L Potassium 4.1 Chloride 102 Carbon Dioxide 27.0 Anion Gap 6 BUN 8 Creatinine 0.89 Estim Creat Clear Calc 85.44 Est GFR (MDRD) Af Amer 110 Est GFR (MDRD) Non-Af 91 BUN/Creatinine Ratio 9.0 L Glucose 120 H Calcium 8.3 L Medical Necessity - Tobacco Use Smoking Status: Former smoker Assessment/Plan All Active Problems (Last Reviewed 06/06/18 @ 14:17 by Katie Ford) Choledocholithiasis (Acute) Transaminitis (Acute) Obstructive jaundice (Acute) Idiopathic pancreatitis (Acute) Acute on recurrent pancreatitis (Acute) CAP (community acquired pneumonia) (Resolved) Abdominal hernia (Resolved) History of bowel resection (Resolved) History of cholecystectomy (Resolved) History of appendectomy (Resolved) Acute bronchitis (Resolved) Dr. Maya and Dr. Tolbert will independently evaluate this patient Continue clear liquids Labs reviewed Will order repeat CT scan of the ab/pel We will continue to monitor this patient Code Visit Inpatient E&M: 90766 Subs Hosp L1
[2018-06-26] MEDS: Dextrose 5%-Lactated Ringers 1,000 ML 75 ML IV (11:19)
--- NOTE | 2018-06-26 14:02 | PCM.PN.ID ---
Subjective: Abd pain worsened over weekend, slightly improved today. Some n/v and loose stool. No blood in stool. - Physical Exam General: Alert, Cooperative, - - uncomfortable Lungs: Clear to auscultation, Normal air movement Cardiovascular: Regular rate, Regular Rhythm Abdomen: Distended, Tender Skin: No rashes Vital Signs Temp Pulse Resp BP Pulse Ox 98.7 F 106 H 18 123/73 H 90 06/26/18 08:06 06/26/18 10:00 06/26/18 08:06 06/26/18 08:06 06/26/18 08:06 Oxygen Flow Rate (L/min) 2 Oxygen Delivery Method Room Air Weight: 115.3 kg Body Mass Index (BMI) 35.6 Intake and Output for Last 24 Hours 06/24/18 06/25/18 06/26/18 23:59 23:59 23:59 Intake Total 3894 / 3894 1722 / 1722 2841 / 2841 Output Total 2475 / 2475 1650 / 1650 1200 / 1200 Balance 1419 / 1419 72 / 72 1641 / 1641 Medical Necessity - Tobacco Use Smoking Status: Former smoker Route of nutrition/ use of supplements: [] Nutritional Intake: [] IV Site: [] Tavarez Catheter: [] - Assessment/Plan Antibiotics: [] Assessment/Plan: [] 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 Repeat CT initially showed a lot of improvement. HIDA did not show leak. Pain slightly improved today. Wbc is still elevated, though baseline may be above normal range. On zosyn, day 8. CT done this AM, report pending, but it looks like large fluid collection seen. Given lack of improvement in wbc and abd pain, would recommend drainage of fluid and send for culture. Will follow
--- NOTE | 2018-06-26 16:04 | NURSING ---
PT PLACED ON O2 2L NC
--- NOTE | 2018-06-26 17:51 | NURSING ---
PT RESTING QUIETLY IN BED @ THIS TIME W/EYES CLOSED, RESP EASY
[2018-06-26] MEDS: Cholestyramine/Sucrose 4 GM/PACKET 1 GM PO (21:28)
[2018-06-26] MEDS: Acetaminophen 325 MG Tablet 650 MG PO (23:03)
[2018-06-27] VITALS (18 sets, daily range): BP systolic 117–169; BP diastolic 76–116; PULSE 82–105; RESP 13–20; TEMP 36.5–36.9; O2SAT 89–98
[2018-06-27] MEDS: Dextrose 5%-Lactated Ringers 1,000 ML 75 ML IV ×2 (01:16→17:09)
[2018-06-27] MEDS: HYDROmorphone 1 MG/ML Syringe IV ×4 (01:16→08:18)
--- NOTE | 2018-06-27 03:01 | NURSING ---
Radiology called and stated that this pt's procedure with Dr. Metcalf today will either be at 0900 or 1100. She wanted to make sure that coags were drawn. I noted that an order was placed for PTT/PT/INR on 06/26/18 but that they had not been drawn. Called Gini in lab and she advised that 2nd shift was unable to obtain specimen yesterday and that they were advised that pt's PICC could have had heparin through it. They are going to try to have another tech draw these labs this am.
[2018-06-27 04:16] LABS: International Normalized Ratio 1.4
[2018-06-27] MEDS: Piperacil/Tazobactam 3.375 GM/50 ML ML IV ×3 (05:37→23:10)
--- NOTE | 2018-06-27 07:00 | CT_ITS ---
PROCEDURE: CT DIRECTED ABSCESS DRAINAGE, PERITONEAL DATE OF EXAMINATION: June 27, 2018. INDICATION: Male, 63 years old. Abscess collection in the upper anterior abdomen. PHYSICIAN: Ike Metcalf M.D. CONSENT: Written informed consent was obtained having explained the risks, benefits and alternatives in detail with the patient who accepted the risks and agreed to proceed. Laboratory review and clinical assessment was performed. CONSCIOUS SEDATION PROTOCOL: The Drugs used were: 2 mg Versed, IV., and 50 mcg Fentanyl, IV. The sedation time was: 30 minutes. Conscious sedation was started at 10:30 AM and terminated at 11:00 AM. The conscious sedation protocol was independently monitored. RADIATION DOSAGE (If Supplied By Facility): CTDIvol = ( 27 ) mGy, DLP = ( a 46.55 ) mGycm TECHNIQUE: CT sections were made through the abdomen and pelvis revealing an abscess in the anterior upper abdomen. The skin surface was prepped and draped in a sterile fashion. Puncture of this collection was performed initially with a 8.5 Divehi catheter and fluid was aspirated. Drainage catheter was then inserted into the collection and formed into position. Additional fluid was aspirated for a total of approximately 430 cc of cloudy red fluid. The catheter was sutured into position to allow for continued drainage. Followup CT sections reveals good position of the catheter. CT/Abscess/Fistula/Sinus Tract IMPRESSION: 1. CT directed drainage of a fluid collection using CT image guidance and image documentation as described. Electronically Signed: Ike Metcalf MD at 14:01 EDT Tel [phone], Service support ,
--- NOTE | 2018-06-27 09:18 | PN.SURG_ITS ---
Subjective: Patient still reports left upper abdominal pain. No diarrhea. - Physical Exam General: Alert, Oriented x3, Cooperative Lungs: Normal air movement Cardiovascular: Regular rate, Regular Rhythm Abdomen: Soft, Non-Distended, Tender - Tender left upper quadrant Vital Signs Temp Pulse Resp BP Pulse Ox 98.1 F 91 18 129/76 H 94 06/27/18 07:30 06/27/18 07:30 06/27/18 07:30 06/27/18 07:30 06/27/18 07:30 Oxygen Flow Rate (L/min) 2 Oxygen Delivery Method Nasal Cannula Weight: 251 lb 15.814 oz Body Mass Index (BMI) 35.6 Intake and Output for Last 24 Hours 06/25/18 06/26/18 06/27/18 23:59 23:59 23:59 Intake Total 1722 / 1722 3162 / 3162 1244 / 1244 Output Total 1650 / 1650 1625 / 1625 1000 / 1000 Balance 72 / 72 1537 / 1537 244 / 244 Laboratory Tests Past 24 Hrs 06/27/18 03:56 PT 17.0 H INR 1.4 APTT 40.0 H Medical Necessity - Tobacco Use Smoking Status: Former smoker Assessment/Plan All Active Problems (Last Reviewed 06/06/18 @ 14:17 by Katie Ford) Choledocholithiasis (Acute) Transaminitis (Acute) Obstructive jaundice (Acute) Idiopathic pancreatitis (Acute) Acute on recurrent pancreatitis (Acute) CAP (community acquired pneumonia) (Resolved) Abdominal hernia (Resolved) History of bowel resection (Resolved) History of cholecystectomy (Resolved) History of appendectomy (Resolved) Acute bronchitis (Resolved) 63-year-old male status post ERCP with fluid collection in the liver 1. Patient had repeat CT yesterday which showed a fluid collection subcapsular in the left lobe the liver. It appears that it is between the liver and the capsule and there is an air bubble included in it. The patient is going for drainage of this collection with placement of drain today. 2. Continue antibiotics. 3. If the patient is feeling better after his drain is placed I will start him on a diet. I believe this is the cause of most of his pain. The anticipation is that the fluid will drain and if he is feeling better he will go home with his percutaneous drain. I will see him back and if the drainage continues I may need to perform an ERCP and replace his stent. If this is purulent fluid that he will continue his antibiotics as an outpatient and his percutaneous drain. Jamel Maya MD Pager: [facility] [address] [place] [address] [address] [place] [address] Office:
--- NOTE | 2018-06-27 11:02 | PCM.PN.ID ---
Subjective: Still with abd pain, some nausea. No fever. IR drainage today. - Physical Exam General: Alert, Cooperative, No apparent distress Lungs: Clear to auscultation, Normal air movement Cardiovascular: Regular rate, Regular Rhythm Abdomen: Distended, Tender Skin: No rashes Vital Signs Temp Pulse Resp BP Pulse Ox 98.1 F 91 18 129/76 H 94 06/27/18 07:30 06/27/18 07:30 06/27/18 07:30 06/27/18 07:30 06/27/18 07:30 Oxygen Flow Rate (L/min) 2 Oxygen Delivery Method Nasal Cannula Weight: 114.3 kg Body Mass Index (BMI) 35.6 Intake and Output for Last 24 Hours 06/25/18 06/26/18 06/27/18 23:59 23:59 23:59 Intake Total 1722 / 1722 3162 / 3162 1244 / 1244 Output Total 1650 / 1650 1625 / 1625 1000 / 1000 Balance 72 / 72 1537 / 1537 244 / 244 Laboratory Tests Past 24 Hrs 06/27/18 03:56 PT 17.0 H INR 1.4 APTT 40.0 H Medical Necessity - Tobacco Use Smoking Status: Former smoker Route of nutrition/ use of supplements: [] Nutritional Intake: [] IV Site: [] Tavarez Catheter: [] - Assessment/Plan Antibiotics: [] Assessment/Plan: [] 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 Repeat CT initially showed a lot of improvement. HIDA did not show leak. CT yesterday showed large collection. On zosyn, day 9. Drainage to be done today, would send fluid for cx. Will follow
[2018-06-27 15:08] LABS: Pathologist Review Reviewed
[2018-06-27 15:13] LABS: Pathologist Review Reviewed
--- NOTE | 2018-06-27 22:50 | NURSING ---
ENTERED PT ROOM FOR ASSESSMENT/HS MEDS. WOKE PT UP AND ASKED IF THIS RN COULD TAKE VS. PT REFUSED. ASKED PT IF THIS RN COULD ASSESS HIM. HE REFUSED. ASKED PT IF THIS RN COULD GIVE HIM MEDICATIONS INCLUDING IV ABX AND QUESTREN. PT REFUSED. ENC PT TO ALLOW STAFF TO HELP HIM TO FEEL BETTER. PT STATES I JUST WANT TO BE LEFT ALONE. THIS RN REMINDED PT THAT WHILE HE HAS THE RIGHT TO REFUSE ANY CARE, WE APPRECIATE THE OPPORTUNITY TO HELP HIM FEEL BETTER AND REMIND HIM THAT HE WILL CONTINUE TO IMPROVE IF WE CONTINUE TO PROVIDE CARE. PT STATES THEN LEAVE ME ALONE. THIS RN LEFT ROOM AND NOTIFIED [employer].
[2018-06-27] MEDS: Cholestyramine/Sucrose 4 GM/PACKET 1 GM PO (23:19)
--- NOTE | 2018-06-27 23:46 | NURSING ---
Agatha PATEL reported that pt had been refusing all care, including meds & vital signs. This RN administered meds and did brief assessment and vital signs. Pt was cooperative although you could tell he wanted to be left alone.
[2018-06-28] VITALS (10 sets, daily range): BP systolic 126–153; BP diastolic 70–87; PULSE 79–117; RESP 18; TEMP 36.6–37; O2SAT 93–95
[2018-06-28 05:33] LABS: Hematocrit 32.2 % (40-54); Hemoglobin 11.2 g/dl (13.0-16.5); Mean Corp Hgb Conc 34.8 g/gl (32-36); Mean Corpuscular Hgb 30.9 pg (27.0-32.0); Mean Platelet Vol. 9.2 fl (6.2-12.0); Platelet Count 324 K/mm3 (150-450); RBC Distribution Width CV 14.7 % (11.6-14.6); RBC Distribution Width SD 48.3 fl (35.1-43.9); Red Blood Count 3.62 M/mm3 (4.6-6.2); White Blood Count 25.3 K/mm3 (4.4-11.0)
[2018-06-28 05:36] LABS: Differential Indicated MANUAL DIFF; POSITIVE COUNT YES; POSITIVE DIFFERENTIAL YES; POSITIVE MORPHOLOGY YES
[2018-06-28 05:42] LABS: ALB/GLOB Ratio 0.3 RATIO (0.9-2.4); AST(SGOT) 21 U/L (15-37); Alanine Aminotransfer ALT/SGPT 15 U/L (16-61); Albumin, Serum 1.5 g/dL (3.2-5.0); Alkaline Phosphatase 152 U/L (45-117); Anion Gap 7 (5-15); BUN 10 mg/dL (7-18); BUN/Creat Ratio 12.9 RATIO (10-20); Calcium,Total 7.9 mg/dL (8.5-10.1); Chloride 101 mmol/L (98-107); Creatinine, Serum 0.77 mg/dL (0.70-1.30); EST Glomerular Filtration Rate 107 mL/min (>60); Est Glom Filt Rate - Afr Amer 130 mL/min (>60); Estimated Creatinine Clearance 98.76 ml/min; Globulin 4.9 g/dL (2.2-4.2); Glucose 132 mg/dL (74-106); Potassium 3.1 mmol/L (3.5-5.1); Protein, Total 6.4 g/dL (6.4-8.2); Sodium Level 137 mmol/L (136-145)
[2018-06-28 06:00] LABS: Eosinophil 3 % (0-5); Lymphocyte 13 % (19-41); Monocyte 5 % (0-10); Neutrophil-Band 3 % (0-5); Neutrophil-Segmented 76 % (47-70); Total Cells Counted 100 (MANUAL DIFF)
[2018-06-28 06:01] LABS: Absolute Lymphocyte Count 3.29 X10^3/ul (0.83-4.51); Lymphocyte # 3.29 X10^3/ul (4.0); Neutrophil # 20.24 X10^3/uL (2.7-7.7); Platelet Estimate ADEQUATE (ADEQ); Red Cell Morphology NORM C+C NORMAL (NORM C&C)
[2018-06-28 06:02] LABS: Absolute Neutrophil Count 20.2 X10^3/uL (2.0-7.7)
[2018-06-28] MEDS: Piperacil/Tazobactam 3.375 GM/50 ML ML IV ×3 (06:08→21:11)
[2018-06-28] MEDS: Acetaminophen 325 MG Tablet 650 MG PO ×2 (08:10→21:11)
--- NOTE | 2018-06-28 08:34 | PCM.PN.SRG ---
Subjective: Patient is feeling better but he is still having some soreness in the epigastric region. He has not tried a regular diet but he is tolerating clear liquids. - Physical Exam General: Alert, Oriented x3, Cooperative Lungs: Normal air movement Cardiovascular: Regular rate, Regular Rhythm Abdomen: Soft, Non-Distended, Tender - Epigastric tenderness., - - CAR drain is sanguinous Vital Signs Temp Pulse Resp BP Pulse Ox 98.3 F 79 18 147/83 H 93 06/28/18 07:56 06/28/18 07:56 06/28/18 07:56 06/28/18 07:56 06/28/18 07:56 Oxygen Flow Rate (L/min) [8] 5 Oxygen Flow Rate (L/min) [7] 5 Oxygen Flow Rate (L/min) [6] 5 Oxygen Flow Rate (L/min) [5] 5 Oxygen Flow Rate (L/min) [4] 5 Oxygen Flow Rate (L/min) [3] 5 Oxygen Flow Rate (L/min) [2] 5 Oxygen Flow Rate (L/min) [1 ( 5 Initial Baseline)] Oxygen Flow Rate (L/min) 2 Oxygen Delivery Method [8] Nasal Cannula Oxygen Delivery Method [7] Nasal Cannula Oxygen Delivery Method [6] Nasal Cannula Oxygen Delivery Method [5] Nasal Cannula Oxygen Delivery Method [4] Nasal Cannula Oxygen Delivery Method [3] Nasal Cannula Oxygen Delivery Method [2] Nasal Cannula Oxygen Delivery Method [1 ( Nasal Cannula Initial Baseline)] Oxygen Delivery Method Room Air Weight: 251 lb 12.286 oz Body Mass Index (BMI) 35.6 Intake and Output for Last 24 Hours 06/26/18 06/27/18 06/28/18 23:59 23:59 23:59 Intake Total 3162 / 3162 3541 / 3541 648 / 648 Output Total 1625 / 1625 2050 / 2050 1030 / 1030 Balance 1537 / 1537 1491 / 1491 -382 / -382 Microbiology Past 72 Hours 06/27/18 11:00 Gram Stain - Final Fluid - Other Laboratory Tests Past 24 Hrs 06/24/18 06/25/18 06/28/18 05:20 10:23 05:05 WBC 25.3 H RBC 3.62 L Hgb 11.2 L Hct 32.2 L MCV 89.0 MCH 30.9 MCHC 34.8 RDW 14.7 H RDW Differential 48.3 H Plt Count 324 MPV 9.2 Neut % (Auto) Not Reportable Absolute Neuts (auto) 20.2 H Absolute Lymphs (auto) 3.29 Total Counted 100 Neutrophils % (Manual) 76 H Band Neutrophils % 3 Lymphocytes % (Manual) 13 L Monocytes % (Manual) 5 Eosinophils % (Manual) 3 Diff Path Review Reviewed Reviewed January Platelet Estimate ADEQUATE RBC Morphology NORM C+C Sodium Potassium Chloride Carbon Dioxide Anion Gap BUN Creatinine Estim Creat Clear Calc Est GFR (MDRD) Af Amer Est GFR (MDRD) Non-Af BUN/Creatinine Ratio Glucose Calcium Total Bilirubin AST ALT Alkaline Phosphatase Total Protein Albumin Globulin Albumin/Globulin Ratio 06/28/18 05:05 WBC RBC Hgb Hct MCV MCH MCHC RDW RDW Differential Plt Count MPV Neut % (Auto) Absolute Neuts (auto) Absolute Lymphs (auto) Total Counted Neutrophils % (Manual) Band Neutrophils % Lymphocytes % (Manual) Monocytes % (Manual) Eosinophils % (Manual) Diff Path Review Platelet Estimate RBC Morphology Sodium 137 Potassium 3.1 L Chloride 101 Carbon Dioxide 29.0 Anion Gap 7 BUN 10 Creatinine 0.77 Estim Creat Clear Calc 98.76 Est GFR (MDRD) Af Amer 130 Est GFR (MDRD) Non-Af 107 BUN/Creatinine Ratio 12.9 Glucose 132 H Calcium 7.9 L Total Bilirubin 1.40 H AST 21 ALT 15 L Alkaline Phosphatase 152 H Total Protein 6.4 Albumin 1.5 L Globulin 4.9 H Albumin/Globulin Ratio 0.3 L Medical Necessity - Tobacco Use Smoking Status: Former smoker Assessment/Plan All Active Problems (Last Reviewed 06/06/18 @ 14:17 by Katie Ford) Choledocholithiasis (Acute) Transaminitis (Acute) Obstructive jaundice (Acute) Idiopathic pancreatitis (Acute) Acute on recurrent pancreatitis (Acute) CAP (community acquired pneumonia) (Resolved) Abdominal hernia (Resolved) History of bowel resection (Resolved) History of cholecystectomy (Resolved) History of appendectomy (Resolved) Acute bronchitis (Resolved) 63-year-old male with fluid collection around his liver 1. Patient had percutaneous drainage of his liver collection. Fluid has been sent for culture. His drainage is bloody and not bilious. His CAR has decreased in drainage. He is only put out 150 cc since the initial drainage. 2. His white count has increased. I believe this is possibly from the drain placement. Await ID instructions on antibiotics 3. Advance diet as tolerated. Jamel Maya MD Pager: [facility] [address] [place] [address], [address] [place] [address] Office:
[2018-06-28] MEDS: 0.9% NaCl IVPB Med Flush (250 mL) 15 ML IV (09:41)
[2018-06-28] MEDS: 0.9% NaCl Peripheral Flush Adult/Peds IV ×3 (09:42→15:46)
--- NOTE | 2018-06-28 12:42 | PN.ID_ITS ---
Subjective: Feeling better, abd pain much improved, no fever - Physical Exam General: Alert, Cooperative, No apparent distress Lungs: Clear to auscultation, Normal air movement Cardiovascular: Regular rate, Regular Rhythm Abdomen: Soft, Non Tender, Non-Distended Skin: No rashes Vital Signs Temp Pulse Resp BP Pulse Ox 98.3 F 79 18 147/83 H 93 06/28/18 07:56 06/28/18 07:56 06/28/18 07:56 06/28/18 07:56 06/28/18 07:56 Oxygen Flow Rate (L/min) [8] 5 Oxygen Flow Rate (L/min) [7] 5 Oxygen Flow Rate (L/min) [6] 5 Oxygen Flow Rate (L/min) [5] 5 Oxygen Flow Rate (L/min) [4] 5 Oxygen Flow Rate (L/min) [3] 5 Oxygen Flow Rate (L/min) [2] 5 Oxygen Flow Rate (L/min) [1 ( 5 Initial Baseline)] Oxygen Flow Rate (L/min) 2 Oxygen Delivery Method [8] Nasal Cannula Oxygen Delivery Method [7] Nasal Cannula Oxygen Delivery Method [6] Nasal Cannula Oxygen Delivery Method [5] Nasal Cannula Oxygen Delivery Method [4] Nasal Cannula Oxygen Delivery Method [3] Nasal Cannula Oxygen Delivery Method [2] Nasal Cannula Oxygen Delivery Method [1 ( Nasal Cannula Initial Baseline)] Oxygen Delivery Method Room Air Weight: 114.2 kg Body Mass Index (BMI) 35.6 Intake and Output for Last 24 Hours 06/26/18 06/27/18 06/28/18 23:59 23:59 23:59 Intake Total 3162 / 3162 3541 / 3541 1471 / 1471 Output Total 1625 / 1625 2050 / 2050 2380 / 2380 Balance 1537 / 1537 1491 / 1491 -909 / -909 Microbiology Past 72 Hours 06/27/18 11:00 Gram Stain - Final Fluid - Other Body Fluid Culture - 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 Laboratory Tests Past 24 Hrs 06/24/18 06/25/18 06/28/18 05:20 10:23 05:05 WBC 25.3 H RBC 3.62 L Hgb 11.2 L Hct 32.2 L MCV 89.0 MCH 30.9 MCHC 34.8 RDW 14.7 H RDW Differential 48.3 H Plt Count 324 MPV 9.2 Neut % (Auto) Not Reportable Absolute Neuts (auto) 20.2 H Absolute Lymphs (auto) 3.29 Total Counted 100 Neutrophils % (Manual) 76 H Band Neutrophils % 3 Lymphocytes % (Manual) 13 L Monocytes % (Manual) 5 Eosinophils % (Manual) 3 Diff Path Review Reviewed Reviewed January foll Platelet Estimate ADEQUATE RBC Morphology NORM C+C Sodium Potassium Chloride Carbon Dioxide Anion Gap BUN Creatinine Estim Creat Clear Calc Est GFR (MDRD) Af Amer Est GFR (MDRD) Non-Af BUN/Creatinine Ratio Glucose Calcium Total Bilirubin AST ALT Alkaline Phosphatase Total Protein Albumin Globulin Albumin/Globulin Ratio 06/28/18 05:05 WBC RBC Hgb Hct MCV MCH MCHC RDW RDW Differential Plt Count MPV Neut % (Auto) Absolute Neuts (auto) Absolute Lymphs (auto) Total Counted Neutrophils % (Manual) Band Neutrophils % Lymphocytes % (Manual) Monocytes % (Manual) Eosinophils % (Manual) Diff Path Review Platelet Estimate RBC Morphology Sodium 137 Potassium 3.1 L Chloride 101 Carbon Dioxide 29.0 Anion Gap 7 BUN 10 Creatinine 0.77 Estim Creat Clear Calc 98.76 Est GFR (MDRD) Af Amer 130 Est GFR (MDRD) Non-Af 107 BUN/Creatinine Ratio 12.9 Glucose 132 H Calcium 7.9 L Total Bilirubin 1.40 H AST 21 ALT 15 L Alkaline Phosphatase 152 H Total Protein 6.4 Albumin 1.5 L Globulin 4.9 H Albumin/Globulin Ratio 0.3 L Medical Necessity - Tobacco Use Smoking Status: Former smoker Route of nutrition/ use of supplements: [] Nutritional Intake: [] IV Site: [] Tavarez Catheter: [] - Assessment/Plan Antibiotics: [] Assessment/Plan: [] 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 CT again this week showed large collection after some improvement. On zosyn, day 10. Drainage done 06/27, fluid cx now with GNR. Await further cx results, may be able to go home on po levaquin/flagyl. Will follow
[2018-06-28] MEDS: oxyCODONE 5 MG Tablet PO ×2 (13:49→17:46)
[2018-06-28] MEDS: Cholestyramine/Sucrose 4 GM/PACKET 1 GM PO (21:10)
[2018-06-29 05:44] VITALS: BP 146/90; PULSE 77; RESP 16; TEMP 37; O2SAT 94
[2018-06-29] MEDS: Piperacil/Tazobactam 3.375 GM/50 ML ML IV (05:49)
[2018-06-29] MEDS: Acetaminophen 325 MG Tablet 650 MG PO (05:52)
[2018-06-29] MEDS: 0.9% NaCl Peripheral Flush Adult/Peds IV (06:54)
[2018-06-29 07:05] LABS: Differential Indicated MANUAL DIFF; Hematocrit 32.6 % (40-54); Hemoglobin 11.2 g/dl (13.0-16.5); Mean Corp Hgb Conc 34.4 g/gl (32-36); Mean Corpuscular Hgb 30.4 pg (27.0-32.0); Mean Corpuscular Volume 88.6 fL (80-94); Mean Platelet Vol. 8.9 fl (6.2-12.0); POSITIVE COUNT YES; POSITIVE DIFFERENTIAL NO; POSITIVE MORPHOLOGY YES; Platelet Count 393 K/mm3 (150-450); RBC Distribution Width SD 48.2 fl (35.1-43.9); Red Blood Count 3.68 M/mm3 (4.6-6.2); White Blood Count 18.3 K/mm3 (4.4-11.0)
[2018-06-29 07:29] LABS: ALB/GLOB Ratio 0.3 RATIO (0.9-2.4); AST(SGOT) 21 U/L (15-37); Alanine Aminotransfer ALT/SGPT 14 U/L (16-61); Albumin, Serum 1.6 g/dL (3.2-5.0); Alkaline Phosphatase 156 U/L (45-117); Anion Gap 9 (5-15); BUN 10 mg/dL (7-18); BUN/Creat Ratio 11.9 RATIO (10-20); Calcium,Total 7.9 mg/dL (8.5-10.1); Chloride 103 mmol/L (98-107); Creatinine, Serum 0.84 mg/dL (0.70-1.30); EST Glomerular Filtration Rate 98 mL/min (>60); Est Glom Filt Rate - Afr Amer 118 mL/min (>60); Estimated Creatinine Clearance 90.53 ml/min; Globulin 5.1 g/dL (2.2-4.2); Glucose 103 mg/dL (74-106); Potassium 3.2 mmol/L (3.5-5.1); Protein, Total 6.7 g/dL (6.4-8.2); Sodium Level 138 mmol/L (136-145)
[2018-06-29 07:30] LABS: Lymphocyte 16 % (19-41); Monocyte 11 % (0-10); Neutrophil-Band 2 % (0-5); Neutrophil-Segmented 71 % (47-70); Total Cells Counted 100 (MANUAL DIFF)
[2018-06-29 07:31] LABS: Hypochromasia RARE; Platelet Estimate ADEQUATE (ADEQ); Polychromasia RARE
[2018-06-29 07:32] LABS: Absolute Neutrophil Count 13.3 X10^3/uL (2.0-7.7)
[2018-06-29 07:45] VITALS: PULSE 100
--- NOTE | 2018-06-29 08:31 | PN.SURG_ITS ---
Subjective: Patient is doing much better today. He describes a dull aching but no sharp abdominal pain. He is tolerating a diet with no nausea or vomiting. - Physical Exam General: Alert, Oriented x3, Cooperative Lungs: Normal air movement Cardiovascular: Regular rate, Regular Rhythm Abdomen: Soft, Non-Distended, Tender - Mild tenderness around drain site, - - Drain is serosanguineous with minimal output Vital Signs Temp Pulse Resp BP Pulse Ox 98.6 F 100 16 146/90 H 94 06/29/18 05:44 06/29/18 07:45 06/29/18 05:44 06/29/18 05:44 06/29/18 05:44 Oxygen Flow Rate (L/min) [8] 5 Oxygen Flow Rate (L/min) [7] 5 Oxygen Flow Rate (L/min) [6] 5 Oxygen Flow Rate (L/min) [5] 5 Oxygen Flow Rate (L/min) [4] 5 Oxygen Flow Rate (L/min) [3] 5 Oxygen Flow Rate (L/min) [2] 5 Oxygen Flow Rate (L/min) [1 ( 5 Initial Baseline)] Oxygen Flow Rate (L/min) 2 Oxygen Delivery Method [8] Nasal Cannula Oxygen Delivery Method [7] Nasal Cannula Oxygen Delivery Method [6] Nasal Cannula Oxygen Delivery Method [5] Nasal Cannula Oxygen Delivery Method [4] Nasal Cannula Oxygen Delivery Method [3] Nasal Cannula Oxygen Delivery Method [2] Nasal Cannula Oxygen Delivery Method [1 ( Nasal Cannula Initial Baseline)] Oxygen Delivery Method Room Air Weight: 246 lb 11.156 oz Body Mass Index (BMI) 35.6 Intake and Output for Last 24 Hours 06/27/18 06/28/18 06/29/18 23:59 23:59 23:59 Intake Total 3541 / 3541 1716.3 / 1716.3 1013 / 1013 Output Total 2049 / 2049 2630 / 2630 815 / 815 Balance 1491 / 1491 -913.7 / -913.7 198 / 198 Microbiology Past 72 Hours 06/27/18 11:00 Gram Stain - Final Fluid - Other Body Fluid Culture - 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 Laboratory Tests Past 24 Hrs 06/29/18 06/29/18 06:50 06:50 WBC 18.3 H RBC 3.68 L Hgb 11.2 L Hct 32.6 L MCV 88.6 MCH 30.4 MCHC 34.4 RDW 15.0 H RDW Differential 48.2 H Plt Count 393 MPV 8.9 Neut % (Auto) Not Reportable Absolute Neuts (auto) 13.3 H Absolute Lymphs (auto) 2.90 Total Counted 100 Neutrophils % (Manual) 71 H Band Neutrophils % 2 Lymphocytes % (Manual) 16 L Monocytes % (Manual) 11 H Diff Path Review May foll Platelet Estimate ADEQUATE Polychromasia RARE Hypochromasia RARE Sodium 138 Potassium 3.2 L Chloride 103 Carbon Dioxide 26.0 Anion Gap 9 BUN 10 Creatinine 0.84 Estim Creat Clear Calc 90.53 Est GFR (MDRD) Af Amer 118 Est GFR (MDRD) Non-Af 98 BUN/Creatinine Ratio 11.9 Glucose 103 Calcium 7.9 L Total Bilirubin 1.20 H AST 21 ALT 14 L Alkaline Phosphatase 156 H Total Protein 6.7 Albumin 1.6 L Globulin 5.1 H Albumin/Globulin Ratio 0.3 L Medical Necessity - Tobacco Use Smoking Status: Former smoker Assessment/Plan All Active Problems (Last Reviewed 06/06/18 @ 14:17 by Katie Ford) Choledocholithiasis (Acute) Transaminitis (Acute) Obstructive jaundice (Acute) Idiopathic pancreatitis (Acute) Acute on recurrent pancreatitis (Acute) CAP (community acquired pneumonia) (Resolved) Abdominal hernia (Resolved) History of bowel resection (Resolved) History of cholecystectomy (Resolved) History of appendectomy (Resolved) Acute bronchitis (Resolved) 63-year-old male with infected fluid collection around the liver 1. The patient subcapsular liver collection has been drained. It is growing gram-negative bacteria. He is on antibiotics and infectious disease is following. 2. Patient reports his pain is much improved and his white count is improving. His LFTs are improving as well. I think he is ready for discharge as he looks very well and appears to be stable. He will go home with his drain in place and on oral antibiotics per infectious disease. He will follow-up with me in 1 week for repeat labs and drain removal. PICC line will be removed before discharge. Jamel Maya MD Pager: [facility] [address] [place] [address], [address] [place] [address] Office:
--- NOTE | 2018-06-29 09:43 | PCM.DC.GB ---
Discharge Diet: Light diet - advance as tolerated Discharge Activity: Return to Normal Activity, May Not Drive - while on narcotics, - - Sponge bath while drain in place Additional Activity Instructions:: Pain medication may cause nausea. You should typically eat light foods as you take your pain medications. Pain medication may also cause constipation. If this is a problem for you, please discuss with your doctor. Call your doctor if your incision/area has: Continuous Slow Oozing, Sudden Increased Bleeding, Increased Pain/ Swelling, Increased Redness, Foul Smelling Discharge, Fever of 101 or Higher Call your doctor if you observe: Fever of 101 or Higher, - - Change in drainage, if it becomes bile or pus Suture Line Care: Avoid Pulling/Pushing Drain: Suction Additional Dressing/Incision Instructions:: Record drain output amount daily Allergies/Adverse Reactions: Allergies No Known Allergies Allergy (Verified 06/06/18 14:19) Medications to take at Discharge Adalimumab [Humira] 40 mg SQ Q14D 01/10/14 Omeprazole [Prilosec] 40 mg PO DAILY 01/10/14 Cholestyramine (with Sugar) [Cholestyramine Powder] 1 dose PO QHS 12/16/17 Albuterol Inhaler [Ventolin Hfa] 1 puff INHALATION Q4H PRN PRN #1 inhaler 12/20/17 albuterol sulfate HFA 90 mcg/actuation aerosol inhaler 2 puff INHALATION Q6H PRN #1 device 04/12/18 lipase/protease/amylase [Creon DR 12,000 Unit Capsule] 3 capsule PO TIDCM 06/21/18 Ciprofloxacin [Cipro] 500 mg PO BID #14 tablet 06/29/18 Metronidazole [Flagyl] 500 mg PO TID #21 tablet 06/29/18 Oxycodone [Oxyir] 5 - 15 mg PO Q4H PRN PRN 7 Days #40 tablet 06/29/18 The following prescriptions were given: Oxycodone [Oxyir] 5 - 15 mg PO Q4H PRN PRN 7 Days #40 tablet PRN Reason: Severe Pain (-06/14) Ciprofloxacin [Cipro] 500 mg PO BID #14 tablet Metronidazole [Flagyl] 500 mg PO TID #21 tablet Primary Care Physician: Shante Castro MD [Primary Care Provider] - Test Results: Test results from this visit will be discussed in further detail at your follow-up appointment, if applicable. Please Follow Up With: Jamel Maya MD When: Call to schedule follow up appointment for early next week. [phone]
--- NOTE | 2018-06-29 09:46 | PCM.DC.SUM ---
Discharge Date and Diagnosis - Problem List Patient Problems: Active and Suspected Problems (Last Reviewed 06/06/18 @ 14:17 by Katie Ford) Subcapsular hematoma of liver (Acute) Date of Admission: 06/19/18 Date of Discharge: 06/29/18 - Primary Discharge Diagnosis Active and Suspected Problems (Last Reviewed 06/06/18 @ 14:17 by Katie Ford) Subcapsular hematoma of liver (Acute) - Secondary Discharge Diagnosis Chronic Problems (Last Reviewed 06/06/18 @ 14:17 by Katie Ford) Gynecomazia (Chronic) Chronic pancreatitis (Chronic) Crohn's disease of small intestine (Chronic) Dyslipidemia (Chronic) Hospital Course and Treatment Imaging Results: Clinical Impression(s) from Imaging Studies ERCP X-Ray 06/19/18 13:50 IMPRESSION: ERCP in the OR. Electronically Signed: Edilberto Washburn MD at 17:18 EDT , Service support , Abdomen CT 06/19/18 16:43 IMPRESSION: There is a mass within the left lobe of the liver which has the appearance of layering contrast. This could be extravasation of contrast due to acute hemorrhage related to perforation or extravasation of the biliary tree during ERCP... Previously direct gastrohepatic perforation is not entirely excluded although there is no free air or extravasated contrast seen within the abdomen at this time. Clinical correlation is recommended Tagged red blood cell study would be helpful for further evaluation N.B. : The above information has been verbally conveyed by Edilberto Washburn MD to George Foley RN, on 06/19/2018 20:18:19 (ET). Electronically Signed: Edilberto Washburn MD at 20:17 EDT , Service support , ADDENDUM: 06/19/182058 ADDENDUM: 06/19/182102 Abdomen/Pelvis CT 06/21/18 07:40 IMPRESSION: Interval improvement in the hyperdensity involving the left lobe of the liver with the mild residual changes. A small air-fluid level is seen along the anterior aspect of the left lobe of the liver. This may be within the subcapsular region. Bibasilar atelectasis and/or infiltrates. Increased markings in the peritoneal fat surrounding the pancreas and root of the mesentery. Nonobstructive right intrarenal calculus. Electronically Signed: Ike Metcalf MD at 9:14 EDT Tel [phone], Service support , Hepatobiliary Scan Nuclear Medicine 06/23/18 08:24 IMPRESSION: 1. Nonvisualization of the gallbladder is consistent with prior cholecystectomy. 2. There is scintigraphic evidence of duodenal-gastric reflux. 3. Hepatocellular-polygonal cell dysfunction is defined with regard given to qualitatively delayed washout of the radiopharmaceutical by the hepatic parenchyma. 4. Further evaluation of this individual may be undertaken utilizing pre-examination CCK quantitative hepatobiliary scintigraphy to exclude the presence of post cholecystectomy syndrome-Sphincter of Oddi dysfunction. (Crow et al, J Nucl Med 33: 1216, 1992). Electronically Signed: Griffin Brooks DO at 10:55 EDT Tel , Service support , Abdomen/Pelvis CT 06/26/18 10:10 IMPRESSION: 12.3 x 6.3 cm loculated air and fluid collection along the anterior margin of the left lobe of the liver. This is increased in size when compared with the prior exam. New loculated fluid collection along the posterior aspect of the left lobe of the liver which measures approximately 8.8 x 3.4 cm. These likely represent pseudocysts. However, infection cannot be excluded. Small amount of free fluid. No free air. Mild stranding adjacent to the pancreas which likely represents acute pancreatitis. Small left pleural effusion and trace right pleural effusion with overlying atelectasis. Electronically Signed: Itz Hayden, at 14:17 EDT Tel , Service support , Abscess Drainage 06/27/18 07:00 IMPRESSION: 1. CT directed drainage of a fluid collection using CT image guidance and image documentation as described. Electronically Signed: Ike Metcalf MD at 14:01 EDT Tel [phone], Service support , Infectious Disease ICU Operations: ERCP Procedures: - - Percutaneous drain placement Summary of Care Provided: The patient is a 63 year old M who presented for ERCP for stent removal and spyglass biopsy of the distal common bile duct. Following surgery he was having a severe amount of epigastric pain. A CT obtained immediately after the procedure showed a fluid collection in the left lobe liver. The patient also had postoperative pancreatitis. He was admitted to the floor and observe. He was continued on antibiotics to prevent infection from this fluid collection. The following day he was having severe amount of pain and a CT revealed that the contrast was exiting the fluid collection. The patient was still having severe epigastric and left upper quadrant pain. A few days later the patient developed hypotension and tachycardia and was transferred to the ICU for a 1 day observation. His blood pressure and tachycardia responded well to fluid bolus and he was transferred back to the floor. A repeat CT scan showed an increase in the fluid collection and it was subcapsular with air bubbles. A percutaneous drain was placed into this fluid collection and over 500 cc of fluid were removed and sent for culture and grew gram-negative bacteria. Once the drain was in place patient was feeling much better and his white count began to come down. Infectious disease was on board and recommended p.o. antibiotics. He will be discharged home on p.o. antibiotics and with a drain in place and follow-up with me next week for repeat labs as well as drain removal. Patient Problems: Active and Suspected Problems (Last Reviewed 06/06/18 @ 14:17 by Katie Ford) Subcapsular hematoma of liver (Acute) - Physical Exam Vital Signs Temp Pulse Resp BP Pulse Ox 98.6 F 100 16 146/90 H 94 06/29/18 05:44 06/29/18 07:45 06/29/18 05:44 06/29/18 05:44 06/29/18 05:44 Oxygen Flow Rate (L/min) [8] 5 Oxygen Flow Rate (L/min) [7] 5 Oxygen Flow Rate (L/min) [6] 5 Oxygen Flow Rate (L/min) [5] 5 Oxygen Flow Rate (L/min) [4] 5 Oxygen Flow Rate (L/min) [3] 5 Oxygen Flow Rate (L/min) [2] 5 Oxygen Flow Rate (L/min) [1 ( 5 Initial Baseline)] Oxygen Flow Rate (L/min) 2 Oxygen Delivery Method [8] Nasal Cannula Oxygen Delivery Method [7] Nasal Cannula Oxygen Delivery Method [6] Nasal Cannula Oxygen Delivery Method [5] Nasal Cannula Oxygen Delivery Method [4] Nasal Cannula Oxygen Delivery Method [3] Nasal Cannula Oxygen Delivery Method [2] Nasal Cannula Oxygen Delivery Method [1 ( Nasal Cannula Initial Baseline)] Oxygen Delivery Method Room Air Weight: 246 lb 11.156 oz Body Mass Index (BMI) 35.6 Intake and Output for Last 24 Hours 06/27/18 06/28/18 06/29/18 23:59 23:59 23:59 Intake Total 3541 / 3541 1716.3 / 1716.3 1013 / 1013 Output Total 0 / 0 2630 / 2630 815 / 815 Balance 1491 / 1491 -913.7 / -913.7 198 / 198 Microbiology Past 72 Hours 06/27/18 11:00 Gram Stain - Final Fluid - Other Body Fluid Culture - Final Escherichia coli Laboratory Tests Past 24 Hrs 06/29/18 06/29/18 06:50 06:50 WBC 18.3 H RBC 3.68 L Hgb 11.2 L Hct 32.6 L MCV 88.6 MCH 30.4 MCHC 34.4 RDW 15.0 H RDW Differential 48.2 H Plt Count 393 MPV 8.9 Neut % (Auto) Not Reportable Absolute Neuts (auto) 13.3 H Absolute Lymphs (auto) 2.90 Total Counted 100 Neutrophils % (Manual) 71 H Band Neutrophils % 2 Lymphocytes % (Manual) 16 L Monocytes % (Manual) 11 H Diff Path Review May foll Platelet Estimate ADEQUATE Polychromasia RARE Hypochromasia RARE Sodium 138 Potassium 3.2 L Chloride 103 Carbon Dioxide 26.0 Anion Gap 9 BUN 10 Creatinine 0.84 Estim Creat Clear Calc 90.53 Est GFR (MDRD) Af Amer 118 Est GFR (MDRD) Non-Af 98 BUN/Creatinine Ratio 11.9 Glucose 103 Calcium 7.9 L Total Bilirubin 1.20 H AST 21 ALT 14 L Alkaline Phosphatase 156 H Total Protein 6.7 Albumin 1.6 L Globulin 5.1 H Albumin/Globulin Ratio 0.3 L Discharge Diet: Light diet - advance as tolerated Discharge Activity: Return to Normal Activity, May Not Drive - while on narcotics, - - Sponge bath while drain in place Additional Activity Instructions:: Pain medication may cause nausea. You should typically eat light foods as you take your pain medications. Pain medication may also cause constipation. If this is a problem for you, please discuss with your doctor. Call your doctor if your incision/area has: Continuous Slow Oozing, Sudden Increased Bleeding, Increased Pain/ Swelling, Increased Redness, Foul Smelling Discharge, Fever of 101 or Higher Call your doctor if you observe: Fever of 101 or Higher, - - Change in drainage, if it becomes bile or pus Suture Line Care: Avoid Pulling/Pushing Drain: Suction Additional Dressing/Incision Instructions:: Record drain output amount daily Home Medications: Medications to take at Discharge Adalimumab [Humira] 40 mg SQ Q14D 01/10/14 Omeprazole [Prilosec] 40 mg PO DAILY 01/10/14 Cholestyramine (with Sugar) [Cholestyramine Powder] 1 dose PO QHS 12/16/17 Albuterol Inhaler [Ventolin Hfa] 1 puff INHALATION Q4H PRN PRN #1 inhaler 12/20/17 albuterol sulfate HFA 90 mcg/actuation aerosol inhaler 2 puff INHALATION Q6H PRN #1 device 04/12/18 lipase/protease/amylase [Creon DR 12,000 Unit Capsule] 3 capsule PO TIDCM 06/21/18 Ciprofloxacin [Cipro] 500 mg PO BID #14 tablet 06/29/18 Metronidazole [Flagyl] 500 mg PO TID #21 tablet 06/29/18 Oxycodone [Oxyir] 5 - 15 mg PO Q4H PRN PRN 7 Days #40 tablet 06/29/18 Following Prescrptions Were Given to Patient: Oxycodone [Oxyir] 5 - 15 mg PO Q4H PRN PRN 7 Days #40 tablet PRN Reason: Severe Pain (-06/14) Ciprofloxacin [Cipro] 500 mg PO BID #14 tablet Metronidazole [Flagyl] 500 mg PO TID #21 tablet Primary Care Physician: Shante Castro MD [Primary Care Provider] - Please Follow Up With: Jamel Maya MD When: Call to schedule follow up appointment for early next week. [phone] Medical Necessity - Tobacco Use Smoking Status: Former smoker Meaningful Use Info Meaningful Use Diagnoses (Choose all that apply): None applicable
[2018-06-29 09:48] VITALS: BP 161/84; PULSE 79; RESP 16; TEMP 37.1; O2SAT 94
--- NOTE | 2018-06-29 09:49 | DS.PCM_ITS ---
Discharge Date and Diagnosis - Problem List Patient Problems: Active and Suspected Problems (Last Reviewed 06/06/18 @ 14:17 by Katie Ford) Subcapsular hematoma of liver (Acute) Date of Admission: 06/19/18 Date of Discharge: 06/29/18 - Primary Discharge Diagnosis Active and Suspected Problems (Last Reviewed 06/06/18 @ 14:17 by Katie Ford) Subcapsular hematoma of liver (Acute) - Secondary Discharge Diagnosis Chronic Problems (Last Reviewed 06/06/18 @ 14:17 by Katie Ford) Gynecomazia (Chronic) Chronic pancreatitis (Chronic) Crohn's disease of small intestine (Chronic) Dyslipidemia (Chronic) Hospital Course and Treatment Imaging Results: Clinical Impression(s) from Imaging Studies ERCP X-Ray 06/19/18 13:50 IMPRESSION: ERCP in the OR. Electronically Signed: Edilberto Washburn MD at 17:18 EDT , Service support , Abdomen CT 06/19/18 16:43 IMPRESSION: There is a mass within the left lobe of the liver which has the appearance of layering contrast. This could be extravasation of contrast due to acute hemorrhage related to perforation or extravasation of the biliary tree during ERCP... Previously direct gastrohepatic perforation is not entirely excluded although there is no free air or extravasated contrast seen within the abdomen at this time. Clinical correlation is recommended Tagged red blood cell study would be helpful for further evaluation N.B. : The above information has been verbally conveyed by Edilberto Washburn MD to George Foley RN, on 06/19/2018 20:18:19 (ET). Electronically Signed: Edilberto Washburn MD at 20:17 EDT , Service support , ADDENDUM: 06/19/182058 ADDENDUM: 06/19/182102 Abdomen/Pelvis CT 06/21/18 07:40 IMPRESSION: Interval improvement in the hyperdensity involving the left lobe of the liver with the mild residual changes. A small air-fluid level is seen along the anterior aspect of the left lobe of the liver. This may be within the subcapsular region. Bibasilar atelectasis and/or infiltrates. Increased markings in the peritoneal fat surrounding the pancreas and root of the mesentery. Nonobstructive right intrarenal calculus. Electronically Signed: Ike Metcalf MD at 9:14 EDT Tel [phone], Service support , Hepatobiliary Scan Nuclear Medicine 06/23/18 08:24 IMPRESSION: 1. Nonvisualization of the gallbladder is consistent with prior cholecystectomy. 2. There is scintigraphic evidence of duodenal-gastric reflux. 3. Hepatocellular-polygonal cell dysfunction is defined with regard given to qualitatively delayed washout of the radiopharmaceutical by the hepatic parenchyma. 4. Further evaluation of this individual may be undertaken utilizing pre-examination CCK quantitative hepatobiliary scintigraphy to exclude the presence of post cholecystectomy syndrome-Sphincter of Oddi dysfunction. (Crow et al, J Nucl Med 33: 1216, 1992). Electronically Signed: Griffin Brooks DO at 10:55 EDT Tel , Service support , Abdomen/Pelvis CT 06/26/18 10:10 IMPRESSION: 12.3 x 6.3 cm loculated air and fluid collection along the anterior margin of the left lobe of the liver. This is increased in size when compared with the prior exam. New loculated fluid collection along the posterior aspect of the left lobe of the liver which measures approximately 8.8 x 3.4 cm. These likely represent pseudocysts. However, infection cannot be excluded. Small amount of free fluid. No free air. Mild stranding adjacent to the pancreas which likely represents acute pancreatitis. Small left pleural effusion and trace right pleural effusion with overlying atelectasis. Electronically Signed: Itz Hayden, at 14:17 EDT Tel , Service support , Abscess Drainage 06/27/18 07:00 IMPRESSION: 1. CT directed drainage of a fluid collection using CT image guidance and image documentation as described. Electronically Signed: Ike Metcalf MD at 14:01 EDT Tel [phone], Service support , Infectious Disease ICU Operations: ERCP Procedures: - - Percutaneous drain placement Summary of Care Provided: The patient is a 63 year old M who presented for ERCP for stent removal and spyglass biopsy of the distal common bile duct. Following surgery he was having a severe amount of epigastric pain. A CT obtained immediately after the procedure showed a fluid collection in the left lobe liver. The patient also had postoperative pancreatitis. He was admitted to the floor and observe. He was continued on antibiotics to prevent infection from this fluid collection. The following day he was having severe amount of pain and a CT revealed that the contrast was exiting the fluid collection. The patient was still having severe epigastric and left upper quadrant pain. A few days later the patient developed hypotension and tachycardia and was transferred to the ICU for a 1 day observation. His blood pressure and tachycardia responded well to fluid bolus and he was transferred back to the floor. A repeat CT scan showed an increase in the fluid collection and it was subcapsular with air bubbles. A percutaneous drain was placed into this fluid collection and over 500 cc of fluid were removed and sent for culture and grew gram-negative bacteria. Once the drain was in place patient was feeling much better and his white count began to come down. Infectious disease was on board and recommended p.o. antibiotics. He will be discharged home on p.o. antibiotics and with a drain in place and follow-up with me next week for repeat labs as well as drain removal. Patient Problems: Active and Suspected Problems (Last Reviewed 06/06/18 @ 14:17 by Katie Ford) Subcapsular hematoma of liver (Acute) - Physical Exam Vital Signs Temp Pulse Resp BP Pulse Ox 98.6 F 100 16 146/90 H 94 06/29/18 05:44 06/29/18 07:45 06/29/18 05:44 06/29/18 05:44 06/29/18 05:44 Oxygen Flow Rate (L/min) [8] 5 Oxygen Flow Rate (L/min) [7] 5 Oxygen Flow Rate (L/min) [6] 5 Oxygen Flow Rate (L/min) [5] 5 Oxygen Flow Rate (L/min) [4] 5 Oxygen Flow Rate (L/min) [3] 5 Oxygen Flow Rate (L/min) [2] 5 Oxygen Flow Rate (L/min) [1 ( 5 Initial Baseline)] Oxygen Flow Rate (L/min) 2 Oxygen Delivery Method [8] Nasal Cannula Oxygen Delivery Method [7] Nasal Cannula Oxygen Delivery Method [6] Nasal Cannula Oxygen Delivery Method [5] Nasal Cannula Oxygen Delivery Method [4] Nasal Cannula Oxygen Delivery Method [3] Nasal Cannula Oxygen Delivery Method [2] Nasal Cannula Oxygen Delivery Method [1 ( Nasal Cannula Initial Baseline)] Oxygen Delivery Method Room Air Weight: 246 lb 11.156 oz Body Mass Index (BMI) 35.6 Intake and Output for Last 24 Hours 06/27/18 06/28/18 06/29/18 23:59 23:59 23:59 Intake Total 3541 / 3541 1716.3 / 1716.3 1013 / 1013 Output Total 0 / 0 2630 / 2630 815 / 815 Balance 1491 / 1491 -913.7 / -913.7 198 / 198 Microbiology Past 72 Hours 06/27/18 11:00 Gram Stain - Final Fluid - Other Body Fluid Culture - Final Escherichia coli Laboratory Tests Past 24 Hrs 06/29/18 06/29/18 06:50 06:50 WBC 18.3 H RBC 3.68 L Hgb 11.2 L Hct 32.6 L MCV 88.6 MCH 30.4 MCHC 34.4 RDW 15.0 H RDW Differential 48.2 H Plt Count 393 MPV 8.9 Neut % (Auto) Not Reportable Absolute Neuts (auto) 13.3 H Absolute Lymphs (auto) 2.90 Total Counted 100 Neutrophils % (Manual) 71 H Band Neutrophils % 2 Lymphocytes % (Manual) 16 L Monocytes % (Manual) 11 H Diff Path Review May foll Platelet Estimate ADEQUATE Polychromasia RARE Hypochromasia RARE Sodium 138 Potassium 3.2 L Chloride 103 Carbon Dioxide 26.0 Anion Gap 9 BUN 10 Creatinine 0.84 Estim Creat Clear Calc 90.53 Est GFR (MDRD) Af Amer 118 Est GFR (MDRD) Non-Af 98 BUN/Creatinine Ratio 11.9 Glucose 103 Calcium 7.9 L Total Bilirubin 1.20 H AST 21 ALT 14 L Alkaline Phosphatase 156 H Total Protein 6.7 Albumin 1.6 L Globulin 5.1 H Albumin/Globulin Ratio 0.3 L Discharge Diet: Light diet - advance as tolerated Discharge Activity: Return to Normal Activity, May Not Drive - while on narcotics, - - Sponge bath while drain in place Additional Activity Instructions:: Pain medication may cause nausea. You should typically eat light foods as you take your pain medications. Pain medication may also cause constipation. If this is a problem for you, please discuss with your doctor. Call your doctor if your incision/area has: Continuous Slow Oozing, Sudden Increased Bleeding, Increased Pain/ Swelling, Increased Redness, Foul Smelling Discharge, Fever of 101 or Higher Call your doctor if you observe: Fever of 101 or Higher, - - Change in drainage, if it becomes bile or pus Suture Line Care: Avoid Pulling/Pushing Drain: Suction Additional Dressing/Incision Instructions:: Record drain output amount daily Home Medications: Medications to take at Discharge Adalimumab [Humira] 40 mg SQ Q14D 01/10/14 Omeprazole [Prilosec] 40 mg PO DAILY 01/10/14 Cholestyramine (with Sugar) [Cholestyramine Powder] 1 dose PO QHS 12/16/17 Albuterol Inhaler [Ventolin Hfa] 1 puff INHALATION Q4H PRN PRN #1 inhaler 12/20/17 albuterol sulfate HFA 90 mcg/actuation aerosol inhaler 2 puff INHALATION Q6H PRN #1 device 04/12/18 lipase/protease/amylase [Creon DR 12,000 Unit Capsule] 3 capsule PO TIDCM 06/21/18 Ciprofloxacin [Cipro] 500 mg PO BID #14 tablet 06/29/18 Metronidazole [Flagyl] 500 mg PO TID #21 tablet 06/29/18 Oxycodone [Oxyir] 5 - 15 mg PO Q4H PRN PRN 7 Days #40 tablet 06/29/18 Following Prescrptions Were Given to Patient: Oxycodone [Oxyir] 5 - 15 mg PO Q4H PRN PRN 7 Days #40 tablet PRN Reason: Severe Pain (-06/14) Ciprofloxacin [Cipro] 500 mg PO BID #14 tablet Metronidazole [Flagyl] 500 mg PO TID #21 tablet Primary Care Physician: Shante Castro MD [Primary Care Provider] - Please Follow Up With: Jamel Maya MD When: Call to schedule follow up appointment for early next week. [phone] Medical Necessity - Tobacco Use Smoking Status: Former smoker Meaningful Use Info Meaningful Use Diagnoses (Choose all that apply): None applicable
[2018-06-29] MEDS: metroNIDAZOLE 500 MG Tablet PO (10:38)
[2018-06-29 10:39] VITALS: BP 151/92; PULSE 77; RESP 18; TEMP 36.8; O2SAT 95
--- NOTE | 2018-06-29 10:44 | PCM.PN.ID ---
Subjective: Feeling better, drain in place, no fever - Physical Exam General: Alert, Cooperative, No apparent distress Lungs: Clear to auscultation, Normal air movement Cardiovascular: Regular rate, Regular Rhythm Abdomen: Soft, Non Tender, Non-Distended, - - drain in place Skin: No rashes Vital Signs Temp Pulse Resp BP Pulse Ox 98.3 F 77 18 151/92 H 95 06/29/18 10:39 06/29/18 10:39 06/29/18 10:39 06/29/18 10:39 06/29/18 10:39 Oxygen Flow Rate (L/min) [8] 5 Oxygen Flow Rate (L/min) [7] 5 Oxygen Flow Rate (L/min) [6] 5 Oxygen Flow Rate (L/min) [5] 5 Oxygen Flow Rate (L/min) [4] 5 Oxygen Flow Rate (L/min) [3] 5 Oxygen Flow Rate (L/min) [2] 5 Oxygen Flow Rate (L/min) [1 ( 5 Initial Baseline)] Oxygen Flow Rate (L/min) 2 Oxygen Delivery Method [8] Nasal Cannula Oxygen Delivery Method [7] Nasal Cannula Oxygen Delivery Method [6] Nasal Cannula Oxygen Delivery Method [5] Nasal Cannula Oxygen Delivery Method [4] Nasal Cannula Oxygen Delivery Method [3] Nasal Cannula Oxygen Delivery Method [2] Nasal Cannula Oxygen Delivery Method [1 ( Nasal Cannula Initial Baseline)] Oxygen Delivery Method Room Air Weight: 111.9 kg Body Mass Index (BMI) 35.6 Intake and Output for Last 24 Hours 06/27/18 06/28/18 06/29/18 23:59 23:59 23:59 Intake Total 3541 / 3541 1716.3 / 1716.3 1013 / 1013 Output Total 2049 / 2049 2630 / 2630 815 / 815 Balance 1491 / 1491 -913.7 / -913.7 198 / 198 Microbiology Past 72 Hours 06/27/18 11:00 Gram Stain - Final Fluid - Other Body Fluid Culture - Final Escherichia coli Laboratory Tests Past 24 Hrs 06/29/18 06/29/18 06:50 06:50 WBC 18.3 H RBC 3.68 L Hgb 11.2 L Hct 32.6 L MCV 88.6 MCH 30.4 MCHC 34.4 RDW 15.0 H RDW Differential 48.2 H Plt Count 393 MPV 8.9 Neut % (Auto) Not Reportable Absolute Neuts (auto) 13.3 H Absolute Lymphs (auto) 2.90 Total Counted 100 Neutrophils % (Manual) 71 H Band Neutrophils % 2 Lymphocytes % (Manual) 16 L Monocytes % (Manual) 11 H Diff Path Review May foll Platelet Estimate ADEQUATE Polychromasia RARE Hypochromasia RARE Sodium 138 Potassium 3.2 L Chloride 103 Carbon Dioxide 26.0 Anion Gap 9 BUN 10 Creatinine 0.84 Estim Creat Clear Calc 90.53 Est GFR (MDRD) Af Amer 118 Est GFR (MDRD) Non-Af 98 BUN/Creatinine Ratio 11.9 Glucose 103 Calcium 7.9 L Total Bilirubin 1.20 H AST 21 ALT 14 L Alkaline Phosphatase 156 H Total Protein 6.7 Albumin 1.6 L Globulin 5.1 H Albumin/Globulin Ratio 0.3 L Medical Necessity - Tobacco Use Smoking Status: Former smoker Route of nutrition/ use of supplements: [] Nutritional Intake: [] IV Site: [] Tavarez Catheter: [] - Assessment/Plan Antibiotics: [] Assessment/Plan: [] 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 CT again this week showed large collection after some improvement. On zosyn, day 11. Drainage done 06/27, fluid cx now with ecoli. ok for d/c home on one week po cipro and flagyl. Wbc better today. Picc removal at discharge. Will follow, d/w primary team
[2018-06-29] MEDS: Ciprofloxacin 500 MG Tablet PO (11:31)
[2018-06-29 13:25] LABS: Pathologist Review Reviewed
[2018-06-29 13:31] LABS: Pathologist Review Reviewed
--- NOTE | 2018-06-30 17:03 | CASEMGMT ---
AMANDA DEY Discharge Follow-up Phone Call: CHITRA: Wilberto Strata: 3 Call Date: 06/30/18 Discharge Date: 06/29/18 Time of Call: 1700 Duration: 3 min Admitting Diagnosis: subcapsular hematoma of liver AMANDA DEY completed follow-up phone call after recent hospitalization. Patient was sleeping, states he is doing well. had no concerns regarding discharge instructions or medications. Patient has follow-up appt on Tuesday.
== END 2018-06-29 11:52 | disposition home or self-care (01) | DRG 919 ==
LOC: MS3 06-20 06:44 → EN 06-20 12:16 → ICU 06-21 17:17 → MS2 06-22 18:52 → MS3 06-26 07:33
PROVIDERS: Internal Medicine Critical Care Medicine; Physician Assistant; Surgery; Admitting Provider Surgery; Family Provider Internal Medicine; PCP Internal Medicine; Referring Provider Surgery
PROC: (CPT 43260; principal; 2018-06-19 13:00)
DX: K91.870 Postprocedural hematoma of a digestive system organ or structure following a digestive system procedure (principal); K85.90 Acute pancreatitis without necrosis or infection, unspecified; K83.1 Obstruction of bile duct; K91.89 Other postprocedural complications and disorders of digestive system; K50.00 Crohn's disease of small intestine without complications; K86.1 Other chronic pancreatitis; E78.5 Hyperlipidemia, unspecified; E66.9 Obesity, unspecified; Z68.35 Body mass index [BMI] 35.0-35.9, adult; Z23 Encounter for immunization; Y84.8 Other medical procedures as the cause of abnormal reaction of the patient, or of later complication, without mention of misadventure at the time of the procedure
CPT/HCPCS: 20501; 36415; 36569; 74160; 74176; 74177; 74328; 76000; 77012; 78226; 80048; 80053; 82962; 83690; 84132; 85025; 85027; 85610; 85730; 87070; 87075; 87077; 87186; 87205; 88108; 88304; 88305; 88313; 94640; 99156; 99157; A9537; J7030; J7040; J7050; J7120; Q9967; 90686; A4216; C1769; J2405

== ENCOUNTER → 2018-07-04 11:36 | Outpatient (CLI) | payer BC, SELFPAY ==
[2018-07-04 13:45] LABS: Absolute Lymphocyte Count 3.21 X10^3/ul (0.83-4.51); Absolute Neutrophil Count 9.9 X10^3/uL (2.0-7.7); Basophil# 0.11 X10^3/uL; Basophil% 0.7 % (0-1); Eosinophil# 0.23 X10^3/uL; Eosinophils% 1.5 % (0-5); Hematocrit 39.5 % (40-54); Hemoglobin 13.3 g/dl (13.0-16.5); Lymphocyte # 3.21 X10^3/ul (4.0); Lymphocyte % 20.7 % (19-41); Mean Corp Hgb Conc 33.7 g/gl (32-36); Mean Corpuscular Hgb 30.4 pg (27.0-32.0); Mean Corpuscular Volume 90.4 fL (80-94); Mean Platelet Vol. 9.4 fl (6.2-12.0); Monocyte# 1.68 X10^3/uL; Monocyte% 10.9 % (0-10); Neutrophil # 9.87 X10^3/uL (2.7-7.7); Neutrophil % 63.8 % (47-70); Platelet Count 733 K/mm3 (150-450); RBC Distribution Width CV 15.9 % (11.6-14.6); RBC Distribution Width SD 51.8 fl (35.1-43.9); Red Blood Count 4.37 M/mm3 (4.6-6.2); White Blood Count 15.5 K/mm3 (4.4-11.0)
[2018-07-04 13:46] LABS: Differential Indicated SCAN CRITERIA MET; POSITIVE COUNT NO; POSITIVE DIFFERENTIAL YES; POSITIVE MORPHOLOGY YES
[2018-07-04 14:17] LABS: ALB/GLOB Ratio 0.3 RATIO (0.9-2.4); AST(SGOT) 22 U/L (15-37); Alanine Aminotransfer ALT/SGPT 13 U/L (16-61); Albumin, Serum 2.3 g/dL (3.2-5.0); Alkaline Phosphatase 133 U/L (45-117); Anion Gap 9 (5-15); BUN 22 mg/dL (7-18); BUN/Creat Ratio 25.6 RATIO (10-20); Calcium,Total 8.7 mg/dL (8.5-10.1); Chloride 102 mmol/L (98-107); Creatinine, Serum 0.86 mg/dL (0.70-1.30); EST Glomerular Filtration Rate 95 mL/min (>60); Est Glom Filt Rate - Afr Amer 115 mL/min (>60); Globulin 6.8 g/dL (2.2-4.2); Glucose 92 mg/dL (74-106); Potassium 3.7 mmol/L (3.5-5.1); Protein, Total 9.1 g/dL (6.4-8.2); Sodium Level 135 mmol/L (136-145)
[2018-07-04 14:27] LABS: Differential Comment SCANNED; Platelet Estimate MOD INC (ADEQ)
[2018-07-05 15:31] LABS: Pathologist Review Reviewed
== END ==
PROVIDERS: Family Provider Internal Medicine; PCP Internal Medicine; Referring Provider Surgery; Visit Provider Surgery
DX: K76.9 Liver disease, unspecified (principal)
CPT/HCPCS: 36415; 80053; 85025

== ENCOUNTER → 2018-07-05 15:00 | Outpatient (CLI) | payer BC, SELFPAY ==
--- NOTE | 2018-07-05 15:30 | NURSING ---
PT's upper abd CAR drain dressing, connector tube and drain reservoir changed by Izabela Pickett station installer and repairer per the request of Dr Maya's office. Pt tolerated well.
== END ==
PROVIDERS: Family Provider Internal Medicine; PCP Internal Medicine; Referring Provider Surgery; Visit Provider Surgery
DX: Z45.2 Encounter for adjustment and management of vascular access device (principal)

== ENCOUNTER → 2018-07-10 12:28 | Outpatient (CLI) | payer BC, SELFPAY ==
--- NOTE | 2018-07-10 12:44 | CT_ITS ---
STUDY: CT ABDOMEN AND PELVIS WITH CONTRAST REASON FOR EXAM: Male, 63 years old. Follow-up liver abscess. RADIATION DOSAGE (If Supplied By Facility): CTDIvol = ( 20.4 ) mGy, DLP = ( 1319.14 ) mGycm TECHNIQUE: Transaxial images were obtained from the dome of the diaphragm to the symphysis pubis without oral contrast. 100 ml of Isovue 300 contrast was administered. Sagittal and coronal images were reconstructed. Individualized dose optimization techniques were used for this CT. COMPARISON: CT of the abdomen and pelvis, June 26, 2018. FINDINGS: The visualized lung bases are unremarkable. Resolution of the pleural effusions and atelectasis seen at the lung bases on the previous examination. The visualized portions of the heart are within normal limits. Liver is normal in size and contour. There is a pigtail catheter along the anterior aspect of the liver just below the capsule. The large air/fluid collection seen in this area on the previous study is now absent. There is a smaller fluid collection along the posterior aspect of the left lobe of the liver which is significantly smaller than on the prior examination. This now measures 5.1 x 2.6 x 2.5 cm, formerly measuring 3.6 x 10.6 x 3.9 cm. A small area of fluid collection seen along the falciform ligament on the previous examination has resolved. Remainder of the liver appears grossly normal. The gallbladder is absent and thought removed. There is no biliary ductal dilatation. The spleen is normal in size and contour. There is reduction in the subcapsular fluid collection when compared to the previous examination. The pancreas is unchanged. Normal bilateral adrenal glands. Normal right kidney. Normal left kidney. Normal bilateral ureters. Normal visualized stomach. Normal small intestine. Again seen is evidence of right hemicolectomy with the ileal colonic anastomosis in the right upper quadrant. There are scattered colonic diverticuli without acute inflammatory change. Normal abdominal aorta. Normal inferior vena cava. Normal retroperitoneum. Normal urinary bladder. Normal prostate and seminal vesicles. In the posterior cul-de-sac there is a 3 x 2.1 x 1.4 cm fluid collection with a thickened enhancing wall suggesting a small abscess. This is markedly decreased in size when compared to the previous study. Normal abdominal wall. There is no osseous change. CT/Abdomen/Pelvis W IV Cont ONLY IMPRESSION: 1. The pigtail catheter in the left anterior perihepatic fluid collection. This is no longer visualized. There is also resolution of these fluid collection along the falciform ligament and marked decrease of the fluid collection in the posterior aspect of the left liver. 2. Decrease in the subcapsular hepatic fluid collection when compared to prior study. 3. Marked decrease of the pelvic fluid collection when compared to prior study. 4. Complete resolution of bilateral pleural effusions and atelectasis. 5. No other major interval change. Electronically Signed: Ace Hoang DO at 21:37 EST Tel [phone], Service support ,
[2018-07-10 13:01] LABS: Absolute Lymphocyte Count 3.38 X10^3/ul (0.83-4.51); Absolute Neutrophil Count 4.7 X10^3/uL (2.0-7.7); Basophil# 0.09 X10^3/uL; Eosinophil# 0.22 X10^3/uL; Eosinophils% 2.4 % (0-5); Hematocrit 39.8 % (40-54); Hemoglobin 13.1 g/dl (13.0-16.5); Lymphocyte # 3.38 X10^3/ul (4.0); Lymphocyte % 36.6 % (19-41); Mean Corp Hgb Conc 32.9 g/gl (32-36); Mean Corpuscular Hgb 30.3 pg (27.0-32.0); Mean Corpuscular Volume 91.9 fL (80-94); Mean Platelet Vol. 8.9 fl (6.2-12.0); Monocyte# 0.75 X10^3/uL; Monocyte% 8.1 % (0-10); Neutrophil # 4.74 X10^3/uL (2.7-7.7); Neutrophil % 51.4 % (47-70); Platelet Count 422 K/mm3 (150-450); RBC Distribution Width CV 15.3 % (11.6-14.6); RBC Distribution Width SD 51.7 fl (35.1-43.9); Red Blood Count 4.33 M/mm3 (4.6-6.2); White Blood Count 9.2 K/mm3 (4.4-11.0)
[2018-07-10 13:05] LABS: POSITIVE COUNT NO; POSITIVE DIFFERENTIAL NO; POSITIVE MORPHOLOGY NO
[2018-07-10 13:23] LABS: ALB/GLOB Ratio 0.4 RATIO (0.9-2.4); AST(SGOT) 23 U/L (15-37); Alanine Aminotransfer ALT/SGPT 20 U/L (16-61); Albumin, Serum 2.6 g/dL (3.2-5.0); Alkaline Phosphatase 145 U/L (45-117); Anion Gap 11 (5-15); BUN 23 mg/dL (7-18); BUN/Creat Ratio 24.9 RATIO (10-20); Calcium,Total 8.6 mg/dL (8.5-10.1); Chloride 103 mmol/L (98-107); Creatinine, Serum 0.92 mg/dL (0.70-1.30); EST Glomerular Filtration Rate 87 mL/min (>60); Est Glom Filt Rate - Afr Amer 106 mL/min (>60); Globulin 6.4 g/dL (2.2-4.2); Glucose 98 mg/dL (74-106); Potassium 3.8 mmol/L (3.5-5.1); Sodium Level 137 mmol/L (136-145)
== END ==
PROVIDERS: Family Provider Internal Medicine; PCP Internal Medicine; Referring Provider Surgery; Visit Provider Surgery
DX: K75.0 Abscess of liver (principal)
CPT/HCPCS: 36415; 74177; 80053; 85025; Q9967

== ENCOUNTER → 2018-07-19 16:01 | Outpatient (CLI) | payer BC, SELFPAY ==
--- NOTE | 2018-07-19 16:02 | CT_ITS ---
STUDY: CT ABDOMEN WITH CONTRAST REASON FOR EXAM: Male, 63 years old. Follow-up abdominal abscess. Status post appendectomy, cholecystectomy, bowel crowding due to Crohn's. RADIATION DOSAGE (If Supplied By Facility): CTDIvol = ( 21.48 ) mGy, DLP = ( 856.00 ) mGycm TECHNIQUE: Transaxial 3.75 mm images were obtained post I.V. administration of 50 ml of Isovue 300 contrast, and without oral contrast. Sagittal and coronal images were reconstructed. Individualized dose optimization techniques were used for this CT. COMPARISON: CT abdomen and pelvis 07/10/2018. 06/27/2018. 06/26/2018. 06/21/2018. FINDINGS: The visualized lung bases are unremarkable. The visualized portions of the heart are within normal limits. There is a percutaneous pigtail drain near midline approach along the anterior left hepatic contour with minimal mesenteric fat stranding, there is however no collection or abscess.. The left hepatic collection has markedly decreased in size currently measuring 2.5 x 1.9 x 2.8 cm previously measuring 2.7 x 4.8 cm at corresponding levels. Normal liver. There are surgical clips in the gallbladder fossa consistent with a prior cholecystectomy. Trace subcapsular splenic fluid, too small to measure. Stable adjacent mild thickening of the diaphragm. Fatty replaced pancreas. Normal bilateral adrenal glands. Nonobstructing renal right inferior renal pole calculus. Normal left kidney. Normal visualized stomach. Normal small intestine. Fluid-filled colon, surgical anastomosis right colon and small bowel. The appendix is visualized and appears normal. Normal abdominal aorta. Normal inferior vena cava. Normal retroperitoneum. Stable post surgical changes of the abdominal wall. Normal Molina osseous structures. CT/Abdomen WITH IV Contrast IMPRESSION: Stable position of the percutaneous drain without residual collection or abscess formation. There is minimal adjacent stranding of fat. Decreased size of left hepatic collection compared to previous exam. Decreased size of subcapsular splenic fluid. Stable nonobstructing right renal calculus. Electronically Signed: Betty Coy MD at 6:38 EST , Service support ,
== END ==
PROVIDERS: Family Provider Internal Medicine; PCP Internal Medicine; Referring Provider Surgery; Visit Provider Surgery
DX: Z98.890 Other specified postprocedural states (principal)
CPT/HCPCS: 74160; Q9967

== ENCOUNTER → 2019-05-03 12:46 | Outpatient (CLI) | payer BC, SELFPAY ==
[2018-10-16 14:01] VITALS: BMI 34.8
--- NOTE | 2019-05-04 09:36 | PFT ---
INTRODUCTION: The patient is a 63-year-old male that presents for pulmonary function studies secondary to a diagnosis of dyspnea. Respiratory therapy reports good patient effort. Bronchodilators were used during testing. INTERPRETATION: Forced expiration spirometry demonstrates no evidence of a large airways obstructive ventilatory defect. There was no significant response to aerosolized bronchodilators. Spirograms are of good quality and plateau normally. Body plethysmography was performed and reveals a decrease TLC to 5.23 L, 77% of predicted, indicative of a mild restrictive ventilatory impairment. The remainder of the lung volumes are symmetrically reduced. Diffusing capacity by single breath CO is within normal limits at 83% of predicted. IMPRESSION: Isolated mild restrictive ventilatory impairment.
== END ==
PROVIDERS: Family Provider Internal Medicine; PCP Internal Medicine; Referring Provider Nurse Practitioner Acute Care; Visit Provider Nurse Practitioner Acute Care
DX: R06.00 Dyspnea, unspecified (principal)
CPT/HCPCS: 94060; 94726; 94729

== ENCOUNTER 2019-09-06 22:23 | Emergency (ER) | payer MEDICARE, SELFPAY ==
[2019-05-15 08:24] VITALS: BMI 34.9
[2019-09-06 22:24] VITALS: BP 166/98; PULSE 79; RESP 32; TEMP 35.8; O2SAT 97; BMI 36.5
[2019-09-06 22:26] VITALS: RESP 32; O2SAT 98
[2019-09-06 22:33] VITALS: BP 166/98; PULSE 79; RESP 32; TEMP 35.8; O2SAT 98
--- NOTE | 2019-09-06 23:02 | RAD_ITS ---
STUDY: X-RAY CHEST REASON FOR EXAM: Male, 64 years old with cough for three weeks and increased shortness of breath for 2-3 days. Past medical hx of COPD. TECHNIQUE: PA and lateral views of the chest. COMPARISON: December 17, 2017. FINDINGS: Cardiac monitoring leads are present. The lungs are expanded. There is interstitial thickening present in both lungs. There is no demonstrated pleural abnormality. Normal size heart. Normal mediastinum and trae. There is prominence of the pulmonary hilar arteries without peripheral pulmonary vascular congestion. There is atherosclerotic calcification of the aortic arch with tortuosity. There are diffuse degenerative changes of the visualized thoracic spine. There are degenerative changes of both shoulders. There is no demonstrated abnormality of the visualized soft tissue structures of the upper abdomen. RAD/Chest PA and Lateral IMPRESSION: Normal x-ray examination of the chest. Electronically Signed: Audrey Drew MD at 0:26 EST , Service support ,
--- NOTE | 2019-09-06 23:02 | EKG12_ITS ---
Test Reason : DYSRHYTHMIA Blood Pressure : / mmHG Vent. Rate : 072 BPM Atrial Rate : 072 BPM P-R Int : 170 ms QRS Dur : 110 ms QT Int : 386 ms P-R-T Axes : 037 -09 045 degrees QTc Int : 422 ms Normal sinus rhythm Incomplete right bundle branch block Borderline ECG Confirmed by CESAR HOLLAND, WES ([id number]), editor managing newspaper JORGE DELACRUZ ([id number]) on 09/10/2019 12:42:53 PM Referred By: SOLO Confirmed By:WES GUERRERO MD
--- NOTE | 2019-09-06 23:03 | ED.DCSUM_ITS ---
History of Present Illness Chief Complaint: Shortness of Breath Informant: Patient Narrative: Presents with shortness of breath. He stated he has been wheezing for the last 7 days. Has had a nonproductive cough. No fevers or chills. History of mild COPD per patient. He is never smoked cigarettes however. He stated he was diagnosed with this several years ago. Patient's been using a cough syrup intermittently. Current severity is mild to moderate. He has albuterol at home and has been using it infrequently. - Past Medical History (1) Acute on recurrent pancreatitis Status: Acute (2) Choledocholithiasis Status: Acute (3) Cough Status: Acute (4) History of ERCP Status: Acute Comment: 06/19/2018 (5) Idiopathic pancreatitis Status: Acute (6) Obstructive jaundice Status: Acute (7) Subcapsular hematoma of liver Status: Acute (8) Transaminitis Status: Acute (9) Chronic pancreatitis Status: Chronic (10) Crohn's disease of small intestine Status: Chronic (11) Dyslipidemia Status: Chronic (12) Gynecomazia Status: Chronic (13) Shortness of breath Status: Chronic (14) Abdominal hernia Status: Resolved (15) Acute bronchitis Status: Resolved (16) CAP (community acquired pneumonia) Status: Resolved (17) History of appendectomy Status: Resolved (18) History of bowel resection Status: Resolved (19) History of cholecystectomy Status: Resolved Past Medical History - Allergies and Home Meds Allergies/Adverse Reactions: Allergies No Known Allergies Allergy (Verified 05/15/19 11:14) Primary Care Physician: Shante Castro MD [Primary Care Provider] - Prior records reviewed: Yes Past Medical History: - - See problem list Surgical History: - Lives: With Family Smoking Status: Never smoker Alcohol: None Drugs: None - Family History Maternal Family History: Reports: No pertinent history Paternal Family History: Reports: - - Father with a history of lung cancer and concurrent tobacco use. Review of Systems General: Denies: Chills, Fever, Sweats Eyes: Denies: Visual changes - bilaterally, Diplopia ENT: Denies: Rhinorrhea, Sore throat Cardiovascular: Denies: Chest pain, Palpitations Respiratory: Reports: Dyspnea, Cough. Denies: Dyspnea on exertion Gastrointestinal: Denies: Abdominal pain, Nausea, Vomiting, Diarrhea, Melena, Hematochezia Genitourinary: Denies: Dysuria, Hematuria, Frequency Musculoskeletal: Denies: Back pain, Extremity Pain Skin: Denies: Rash, Wounds Neurological: Denies: Headache, Weakness, Numbness Physical Exam Vital Signs/Narrative: Vital Signs Temp Pulse Resp BP Pulse Ox 09/06/19 22:33 96.5 F L 79 32 H 166/98 H 98 09/06/19 22:26 32 H 98 09/06/19 22:24 96.5 F L 79 32 H 166/98 H 97 General: Well nourished, Well developed, No Acute Distress Head: Normocephalic, Atraumatic Eyes: Perrl, EOMI ENT: Moist mucous membranes, No rhinorrhea Neck: Supple, Nontender Cardiovascular: Regular rate, Regular rhythm, No murmurs Respiratory: No distress, Chest nontender, Wheezing - Diffuse expiratory wheezes throughout all lung roth, Decreased Air Movement. Negative for: Rales, Rhonchi, Retractions Abdomen: Soft, Nontender, Nondistended, Normal bowel sounds Back: Nontender, Normal Inspection Extremities: Nontender, No edema Skin: Normal color, No rash Neurological: Alert, Oriented x3, Cranial nerves II-XII grossly intact, Normal Strength, Normal Sensation Psychological: Normal affect, Normal Mood Diagnostic/Tx/Re-eval - Medical Decision Making EKG shows sinus rhythm at a rate of 72. Incomplete right bundle noted. No acute ischemia. Lab work and chest x-ray obtained. Patient given DuoNeb breathing treatment followed by albuterol breathing treatment. Patient felt much better after treatment. Wheezing is almost resolved. Given prednisone. Given a dose of azithromycin. Will continue these at home for COPD e xacerbation. Chest x-ray shows chronic changes without infiltrate. Mild leukocytosis noted. Otherwise lab work unremarkable including troponin. Patient will follow-up as an outpatient return if he worsens ED Disposition - Plan for ED Patient: Disposition: Home or Assisted Living Diagnosis: COPD exacerbation Instructions: Copd Flare Prescriptions: predniSONE tablet 60 mg PO DAILY #15 tab Transmission Status: Pending to [facility] Azithromycin [Zithromax] 250 mg PO DAILY #4 tab Transmission Status: Pending to [facility] Referrals: Shante Castro MD [Primary Care Provider] -
[2019-09-06 23:09] VITALS: PULSE 88; RESP 18; RESP 20; O2SAT 95
[2019-09-06] MEDS: Ipratropium/Albuterol Sulfate 3 ML AMPUL.NEB INHALATION (23:09)
[2019-09-06 23:16] LABS: Absolute Lymphocyte Count 4.02 X10^3/uL (0.83-4.51); Absolute Neutrophil Count 6.8 X10^3/uL (2.0-7.7); Basophil# 0.15 X10^3/uL; Basophil% 1.1 % (0-1); Eosinophil# 1.41 X10^3/uL; Eosinophils% 10.2 % (0-5); Hematocrit 44.6 % (40-54); Hemoglobin 14.7 g/dL (13.0-16.5); Lymphocyte # 4.02 X10^3/ul (4.0); Mean Corpuscular Hgb 30.7 pg (27.0-32.0); Mean Corpuscular Volume 93.1 fL (80-94); Mean Platelet Vol. 9.1 fl (6.2-12.0); Monocyte# 1.34 X10^3/uL; Monocyte% 9.7 % (0-10); NRBC Flagged by Analyzer 0 % (0-5); Neutrophil # 6.83 X10^3/uL (2.7-7.7); Neutrophil % 49.3 % (47-70); Platelet Count 249 K/mm3 (150-450); RBC Distribution Width CV 13.2 % (11.6-14.6); Red Blood Count 4.79 M/mm3 (4.6-6.2); White Blood Count 13.8 K/mm3 (4.4-11.0)
[2019-09-06] MEDS: Albuterol 2.5 MG/3 ML VIAL.NEB. INHALATION ×3 (23:24→23:54)
[2019-09-06 23:26] VITALS: BP 135/88; PULSE 76; RESP 18; TEMP 35.8; O2SAT 98
[2019-09-06 23:29] LABS: Anion Gap 5 (5-15); BUN 25 mg/dL (7-18); BUN/Creat Ratio 21.6 RATIO (10-20); Chloride 107 mmol/L (98-107); Creatinine, Serum 1.16 mg/dL (0.70-1.30); EST Glomerular Filtration Rate 67 mL/min (>60); Est Glom Filt Rate - Afr Amer 81 mL/min (>60); Estimated Creatinine Clearance 66.72 ml/min; Glucose 113 mg/dL (74-106); Sodium Level 140 mmol/L (136-145)
[2019-09-07 00:09] VITALS: BP 146/77; PULSE 94; RESP 12; RESP 18; TEMP 35.8; O2SAT 98
--- NOTE | 2019-09-07 00:41 | CPS ---
x3 Albuterol given as well
[2019-09-07] MEDS: predniSONE 20 MG Tablet 60 MG PO (00:46)
[2019-09-07 00:47] VITALS: BP 166/75; PULSE 98; RESP 18; O2SAT 98
[2019-09-07] MEDS: Azithromycin 250 MG Tablet 500 MG PO (00:47)
== END 2019-09-07 00:48 | disposition home or self-care (01) ==
PROVIDERS: Emergency Provider Emergency Medicine; Family Provider Internal Medicine; PCP Internal Medicine
DX: J44.1 Chronic obstructive pulmonary disease with (acute) exacerbation (principal); Z80.1 Family history of malignant neoplasm of trachea, bronchus and lung; Z90.49 Acquired absence of other specified parts of digestive tract; E78.5 Hyperlipidemia, unspecified; K50.00 Crohn's disease of small intestine without complications
CPT/HCPCS: 71046; 80048; 84484; 85025; 93005; 94640; 99251; 99285; A4216; G0463

== ENCOUNTER 2020-06-18 05:34 | Inpatient (IN) | payer MEDICARE, SELFPAY ==
[2020-06-18] VITALS (18 sets, daily range): BP systolic 131–157; BP diastolic 74–91; PULSE 77–108; RESP 16–30; TEMP 36.3–36.7; O2SAT 93–100; BMI 34.7; BMI 34.4
--- NOTE | 2020-06-18 05:45 | RAD_ITS ---
STUDY: X-RAY CHEST REASON FOR EXAM: Male, 64 years old. sob and cough x 2 weeks -- hx of copd TECHNIQUE: Frontal view COMPARISON: None. FINDINGS: Right lower lobe infiltrates.. There is no demonstrated pleural abnormality. Normal size heart. Normal mediastinum and trae. Normal visualized pulmonary arteries. Normal visualized aortic arch and descending thoracic aorta. Normal visualized thoracic spine. Normal visualized ribs, clavicles, and shoulders. There is no demonstrated abnormality of the visualized soft tissue structures of the upper abdomen. RAD/Chest 1 View (Portable) IMPRESSION: Right lower lobe infiltrates.. There is no demonstrated pleural abnormality. Normal size heart. Electronically Signed: Missael Crystal MD at 6:54 EDT , Service support ,
--- NOTE | 2020-06-18 05:45 | EKG12_ITS ---
Test Reason : SOB Blood Pressure : / mmHG Vent. Rate : 098 BPM Atrial Rate : 098 BPM P-R Int : 160 ms QRS Dur : 102 ms QT Int : 350 ms P-R-T Axes : 067 033 045 degrees QTc Int : 446 ms Normal sinus rhythm Incomplete right bundle branch block Nonspecific ST abnormality Abnormal ECG Confirmed by PAULA HOLLAND, ELLY ([id number]), publishing editor JORGE DELACRUZ ([id number]) on 06/23/2020 8:21:06 A M Referred By: ANKUSH Confirmed By:ROYCE MITCHELL MD
--- NOTE | 2020-06-18 05:47 | ED.VIS.GEN ---
History of Present Illness Chief Complaint: Shortness of Breath Narrative: This patient is a 64-year-old male who presents with shortness of breath. He does have a history of COPD. Family reports that he has had worsening shortness of breath for the last several months however this is acutely worsened in the last few days and became severe this morning. He has been using frequent aerosol treatments. Over the past few days he reports increased cough and has developed sputum production which he normally does not have. No fevers or sore throat. No vomiting or diarrhea. He denies any pain. No known exposure to COVID-19. Past Medical History - Allergies and Home Meds Allergies/Adverse Reactions: Allergies budesonide Allergy (Verified 06/18/20 05:41) Swelling Primary Care Physician: Shante Castro MD [Primary Care Provider] - Past Medical History: - - COPD Surgical History: - Smoking Status: Former smoker - Family History Maternal Family History: Reports: No pertinent history Paternal Family History: Reports: - - Father with a history of lung cancer and concurrent tobacco use. Review of Systems All systems negative except as indicated General: Denies: Fever Eyes: Denies: Visual changes - bilaterally ENT: Denies: Bilateral ear pain Cardiovascular: Denies: Chest pain Respiratory: Reports: Dyspnea, Cough, Sputum Gastrointestinal: Denies: Abdominal pain, Nausea, Vomiting, Diarrhea Musculoskeletal: Denies: Myalgias, Arthralgias Skin: Denies: Rash Neurological: Denies: Headache Hematologic: Denies: Easy bruising Allergy: Denies: Uticaria Physical Exam Vital Signs/Narrative: Vital Signs Temp Pulse Resp BP Pulse Ox 06/18/20 05:37 97.4 F L 108 H 30 H 157/87 H 97 06/18/20 05:34 97.4 F L 108 H 30 H 157/87 H 97 Inital Vital Signs reviewed: Yes General: Well nourished, Well developed Head: Normocephalic Eyes: EOMI ENT: Moist mucous membranes, Nasal congestion Cardiovascular: - - Heart is regular tachycardia without murmur, gallop, rub Respiratory: - - Patient has increased work of breathing, speaking short sentences, diminished air exchange and diffuse inspiratory and expiratory wheezing Abdomen: Soft Skin: Normal color Neurological: Alert Psychological: Normal affect Diagnostic/Tx/Re-eval Impressions Chest X-Ray 06/18/20 05:45 IMPRESSION: Right lower lobe infiltrates.. There is no demonstrated pleural abnormality. Normal size heart. Electronically Signed: Missael Crystal MD at 6:54 EDT , Service support , 06/18/20 05:45 Chest 1 View (Portable) [RAD] Stat Laboratory Results 06/18/20 06/18/20 06/18/20 05:58 05:58 06:20 WBC 12.8 H RBC 4.63 Hgb 14.6 Hct 44.1 MCV 95.2 H MCH 31.5 MCHC 33.1 RDW Std Deviation 47.9 H RDW Coeff of Zachary 13.6 Plt Count 284 MPV 9.1 Immature Gran % (Auto) 0.800 Neut % (Auto) 58.0 Lymph % (Auto) 20.7 Woodruff % (Auto) 9.4 Eos % (Auto) 10.2 H Baso % (Auto) 0.9 Absolute Neuts (auto) 7.4 Absolute Lymphs (auto) 2.64 Nucleated RBC % 0 Sodium Cancelled 140 Potassium Cancelled 3.9 Chloride Cancelled 109 H Carbon Dioxide Cancelled 26.0 Anion Gap Cancelled 5 BUN Cancelled 21 H Creatinine Cancelled 1.08 Estim Creat Clear Calc Cancelled 71.66 Est GFR (MDRD) Af Amer Cancelled 88 Est GFR (MDRD) Non-Af Cancelled 73 BUN/Creatinine Ratio Cancelled 19.4 Glucose Cancelled 114 H Calcium Cancelled 8.8 Troponin I Cancelled < 0.015 - Medical Decision Making Laboratory studies as above essentially unremarkable. Chest x-ray does show right-sided infiltrate. Patient was treated with albuterol and Atrovent aerosols as well as IV Solu-Medrol. He still has severe) expiratory wheezing and increased work of breathing. He was also given IV Levaquin for community-acquired pneumonia. Lactic acid and blood cultures were ordered. Patient was discussed with the hospitalist and will be admitted. ED Disposition - Plan for ED Patient: Disposition: [facility] Diagnosis: Pneumonia, COPD exacerbation Referrals: Shante Castro MD [Primary Care Provider] -
[2020-06-18] MEDS: Ipratropium/Albuterol Sulfate 3 ML AMPUL.NEB INHALATION ×5 (05:59→19:15)
[2020-06-18] MEDS: MethylPREDNISolone 125 MG/2 ML Vial IV (05:59)
[2020-06-18] MEDS: Albuterol 2.5 MG/3 ML VIAL.NEB. INHALATION (05:59)
[2020-06-18 06:16] LABS: Absolute Lymphocyte Count 2.64 X10^3/uL (0.83-4.51); Absolute Neutrophil Count 7.4 X10^3/uL (2.0-7.7); Basophil# 0.11 X10^3/uL; Basophil% 0.9 % (0-1); Eosinophils% 10.2 % (0-5); Hematocrit 44.1 % (40-54); Hemoglobin 14.6 g/dL (13.0-16.5); Lymphocyte # 2.64 X10^3/ul (4.0); Lymphocyte % 20.7 % (19-41); Mean Corp Hgb Conc 33.1 g/dL (32-36); Mean Corpuscular Hgb 31.5 pg (27.0-32.0); Mean Corpuscular Volume 95.2 fL (80-94); Mean Platelet Vol. 9.1 fl (6.2-12.0); Monocyte% 9.4 % (0-10); NRBC Flagged by Analyzer 0 % (0-5); Neutrophil # 7.42 X10^3/uL (2.7-7.7); Platelet Count 284 K/mm3 (150-450); RBC Distribution Width CV 13.6 % (11.6-14.6); RBC Distribution Width SD 47.9 fl (35.1-43.9); Red Blood Count 4.63 M/mm3 (4.6-6.2); White Blood Count 12.8 K/mm3 (4.4-11.0)
[2020-06-18 06:45] LABS: Anion Gap 5 (5-15); BUN 21 mg/dL (7-18); BUN/Creat Ratio 19.4 RATIO (10-20); Calcium,Total 8.8 mg/dL (8.5-10.1); Chloride 109 mmol/L (98-107); Creatinine, Serum 1.08 mg/dL (0.70-1.30); EST Glomerular Filtration Rate 73 mL/min (>60); Est Glom Filt Rate - Afr Amer 88 mL/min (>60); Estimated Creatinine Clearance 71.66 ml/min; Glucose 114 mg/dL (74-106); Potassium 3.9 mmol/L (3.5-5.1); Sodium Level 140 mmol/L (136-145)
--- NOTE | 2020-06-18 07:08 | NURSING ---
DR SHAY FOR DR MORALES
--- NOTE | 2020-06-18 07:13 | PCM.HP.STD ---
Problem List (1) Pneumonia Status: Acute Qualifiers: Pneumonia type: due to unspecified organism Laterality: right Lung location: lower lobe of lung Qualified Code(s): J18.9 - Pneumonia, unspecified organism (2) COPD exacerbation Status: Chronic (3) Chronic pancreatitis Status: Chronic Qualifiers: Pancreatitis type: unspecified pancreatitis type (4) Crohn's disease of small intestine Status: Chronic Qualifiers: Digestive disease complication type: unspecified complication (5) Dyslipidemia Status: Chronic History of Present Illness Date of Admission: 06/18/20 Chief Complaint: Shortness of breath, progressive over in 2 weeks The patient is a 64 year old M with PMHx of COPD, not on oxygen, Crohn's disease, chronic pancreatitis who comes in with progressive SOB, cough ongoing for about 2 weeks. He denies any fever or chills or diaphoresis or chest pain, dizziness. He denied any sick contact. Vitals in the ED showed temperature of 97.4F, heart rate 108, blood pressure 157/87, respiratory 30, SPO2 97% on room air. BBC count was 12.8, hemoglobin 14.6, platelet count 2 4. BMP is unremarkable. Troponins are negative. Lactic acid is 1.6. COVID-19 not detected. Chest X-ray showed right lower lob infiltrates. Past Medical History Past Medical History (Chronic Problems): Chronic Problems (Last Reviewed 05/15/19 @ 11:14 by Soraida Victoria) COPD exacerbation (Chronic) Shortness of breath (Chronic) Gynecomazia (Chronic) Chronic pancreatitis (Chronic) Crohn's disease of small intestine (Chronic) Dyslipidemia (Chronic) Medical History: Medical History (Last Reviewed 05/15/19 @ 11:14 by Soraida Victoria) Gynecomazia (Chronic) N62 Acute bronchitis (Resolved) J20.9 Chronic pancreatitis (Chronic) K86.1 Crohn's disease of small intestine (Chronic) K50.00 Dyslipidemia (Chronic) E78.5 Allergies budesonide Allergy (Verified 06/18/20 05:41) Swelling Home Medications: Ambulatory Orders Medication Instructions Recorded Adalimumab [Humira] 40 mg SQ Q14D 01/10/14 Omeprazole [Prilosec] 40 mg PO DAILY 01/10/14 Cholestyramine (with Sugar) 1 dose PO QHS 12/16/17 [Cholestyramine Powder] lipase/protease/amylase [Creon DR 3 cap PO TIDCM 06/21/18 12,000 Unit Capsule] albuterol sulfate 90 mcg/actuation 2 puff INHALATION Q6H PRN #1 device 05/15/19 aerosol inhaler azelastine 137 mcg (0.1 %) nasal 1 spray INTRANASAL Q12H #30 ml 05/15/19 spray aerosol Ondansetron [Zofran Odt] 4 mg PO Q12H PRN PRN 09/06/19 Azithromycin [Zithromax] 250 mg PO DAILY #4 tab 09/07/19 predniSONE tablet 60 mg PO DAILY #15 tab 09/07/19 Fluticasone Propionate 1 spray INHALATION DAILY 06/18/20 Ipratropium [place] 0.2 mg IH Q6H PRN PRN 06/18/20 Montelukast [Singulair] 10 mg PO DAILY 06/18/20 Surgical History: Surgical History (Last Reviewed 05/15/19 @ 11:14 by Soraida Victoria) History of ERCP (Acute) Z98.890 06/19/2018 Abdominal hernia (Resolved) K46.9 History of bowel resection (Resolved) Z98.890, Z90.49 History of cholecystectomy (Resolved) Z90.49 History of appendectomy (Resolved) Z90.49 Surgical History: appendectomy, cholecystectomy, herniorrhaphy, - - s/p bowel resection, s/p ERCP Psychiatric History: No pertinent psych hx Lives: Spouse/ Significant Other Smoking Status: Former smoker Tobacco Use: Non-smoker Alcohol: None Drugs: None - *Family History Maternal History Items: No pertinent history Paternal History Items: - - Father with a history of lung cancer and concurrent tobacco use. Review of Systems Constitutional: Reports: Weakness, Fatigue. Denies: Anorexia, Chills, Fever, Malaise, Weight Change Eyes: Denies: Blurred vision, Cataracts, Conjunctivae Inflammation, Pain, Redness HEENT: Denies: Difficulty Hearing, Difficulty Swallowing, Head Aches, Hearing Changes, Sinus Congestion, Sinus Drainage Cardiovascular: Denies: Chest Pain, Light Headedness, Orthopnea, Palpitations, Paroxysmal Noc. Dyspnea Respiratory: Reports: Cough, Shortness of Breath, Shortness of breath at rest, Shortness of breath upon exertion, Sputum production, Wheezing Gastrointestinal: Denies: Abdominal Pain, Constipation, Hematemesis, Hematochezia, Nausea, Vomiting Genitourinary: Denies: Dysuria, Frequency Musculoskeletal: Denies: Joint Pain, Joint stiffness, Joint swelling, Joint Tenderness Skin: Denies: Rash, Wounds Neurological: Denies: Numbness, Tingling, Focal weakness Psychiatric: Denies: Anxiety, Depression, Homicidal Ideations, Suicidal Ideations Hematologic/ Lymphatic: Denies: Easy Bruising, Easy Bleeding VTE Information - Inpt Only VTE Present on Admission: No VTE Pharm Prophylaxis ordered?: Yes Patient Problems: Active and Suspected Problems (Last Reviewed 05/15/19 @ 11:14 by Soraida Victoria) Pneumonia (Acute) - Physical Exam Vitals/I&O's: Vital Signs Temp Pulse Resp BP Pulse Ox 97.4 F L 88 20 H 145/74 H 97 06/18/20 06:37 06/18/20 06:37 06/18/20 06:37 06/18/20 06:37 06/18/20 06:37 Oxygen Delivery Method Room Air Weight: 112.9 kg Body Mass Index (BMI) 34.7 General: Alert, Oriented x3, Cooperative, No apparent distress, - - obese HEENT: Atraumatic, PERRLA, EOMI, Normocephalic Oral: Moist Mucosa Neck: Supple Lungs: Diminished, Wheezes - ++ Cardiovascular: Regular rate, Regular Rhythm, Normal S1, Normal S2, No murmurs Abdomen: Bowel Sounds Present, Soft, Non Tender, Non-Distended, No Hepato-splenomegaly, Obese Extremities: No edema Skin: No rashes Musculoskeletal: No Tenderness to Palpation of Joints or Extremities Lymphatic: No Cervical, Supraclavicular, or Inguinal Adenopathy Neurological: Cranial nerves II-XII grossly intact, Neuro grossly intact Psych/Mental Status: Normal Affect, Appropriate Laboratory Results 06/18/20 05:45: COVID-19 (TONY) Pending 06/18/20 05:58: WBC 12.8 H, RBC 4.63, Hgb 14.6, Hct 44.1, MCV 95.2 H, MCH 31.5, MCHC 33.1, RDW Std Deviation 47.9 H, RDW Coeff of Zachary 13.6, Plt Count 284, MPV 9.1, Immature Gran % (Auto) 0.800, Neut % (Auto) 58.0, Lymph % (Auto) 20.7, Fisher % (Auto) 9.4, Eos % (Auto) 10.2 H, Baso % (Auto) 0.9, Absolute Neuts (auto) 7.4, Absolute Lymphs (auto) 2.64, Nucleated RBC % 0 06/18/20 05:58: Sodium Cancelled, Potassium Cancelled, Chloride Cancelled, Carbon Dioxide Cancelled, Anion Gap Cancelled, BUN Cancelled, Creatinine Cancelled, Estim Creat Clear Calc Cancelled, Est GFR (MDRD) Af Amer Cancelled, Est GFR (MDRD) Non-Af Cancelled, BUN/Creatinine Ratio Cancelled, Glucose Cancelled, Calcium Cancelled, Troponin I Cancelled 06/18/20 06:20: Sodium 140, Potassium 3.9, Chloride 109 H, Carbon Dioxide 26.0, Anion Gap 5, BUN 21 H, Creatinine 1.08, Estim Creat Clear Calc 71.66, Est GFR (MDRD) Af Amer 88, Est GFR (MDRD) Non-Af 73, BUN/Creatinine Ratio 19.4, Glucose 114 H, Calcium 8.8, Troponin I < 0.015 Current Medications Levofloxacin (Levaquin Iv) 750 mg in 150 mls @ 100 mls/hr IV X1 ONE Stop: 06/18/20 08:26 Assessment/Plan All Active Problems (Last Reviewed 05/15/19 @ 11:14 by Soraida Victoria) Pneumonia (Acute) Cough (Acute) History of ERCP (Acute) Subcapsular hematoma of liver (Acute) Choledocholithiasis (Acute) Transaminitis (Acute) Obstructive jaundice (Acute) Idiopathic pancreatitis (Acute) Acute on recurrent pancreatitis (Acute) CAP (community acquired pneumonia) (Resolved) Abdominal hernia (Resolved) History of bowel resection (Resolved) History of cholecystectomy (Resolved) History of appendectomy (Resolved) Acute bronchitis (Resolved) 1. Acute hypoxic respiratory sufficient secondary to #2 and #3 Is on 2 L of oxygen, continue same, wean off for SPO2 more than 94% 2. Acute COPD exacerbation secondary to acute pneumonia, severe, patient with auditory wheezes COVID-19 PCR negative. Respiratory panel negative. Continue on breathing treatments, IV Levaquin, IV Solu-Medrol 2. Acute pneumonia, right lower lobe infiltrate, noted on admitting chest x-ray Legionella and typical antigen negative. Started on IV Levaquin, continue same 3. Crohn's disease, not in acute exacerbation, received Humira a week ago, continue on fluticasone, 4. Obesity, BMI 34.4, continue lifestyle modification 5. DVT PPx- Lovenox SC Inpatient E&M: [id number] Init Hosp L3
--- NOTE | 2020-06-18 07:14 | NURSING ---
PCU COPD EXAC PAINTSIL
[2020-06-18] MEDS: levoFLOXacin IV 750 MG/150 ML BAG 100 MG IV (07:40)
--- NOTE | 2020-06-18 07:57 | ED.RN ---
PATIENT COMPLAINS OF INCREASED SHORTNESS OF BREATH AND REQUESTING ADDITIONAL BREATHING TREATMENT. DR. MORALES MADE AWARE, ADDITIONAL ORDERS OBTAINED.
[2020-06-18 08:10] LABS: Lactic Acid 1.6 mmol/L (0.4-1.9)
[2020-06-18] MEDS: Montelukast 10 MG Tablet PO (09:09)
[2020-06-18] MEDS: Pantoprazole Sodium 40 MG Tablet PO (09:09)
[2020-06-18] MEDS: 0.9% Normal Saline 1,000 ML 50 ML IV (09:10)
[2020-06-18 19:31] LABS: AST(SGOT) 29 U/L (15-37); Alanine Aminotransfer ALT/SGPT 26 U/L (16-61); Albumin, Serum 3.2 g/dL (3.2-5.0); Alkaline Phosphatase 93 U/L (45-117); Bilirubin, Direct 0.25 mg/dL (0.00-0.30); Globulin 4.5 g/dL (2.2-4.2); Protein, Total 7.7 g/dL (6.4-8.2)
[2020-06-18] MEDS: 0.9% Saline Lock 10 ML Syringe IV (21:24)
[2020-06-18] MEDS: Cholestyramine/Sucrose 4 GM/PACKET PO (21:30)
[2020-06-18] MEDS: Enoxaparin 40 MG/0.4 ML Syringe SC (21:30)
[2020-06-18] MEDS: guaiFENesin 10 ML UDC (200MG/10ML) 20 ML PO (23:19)
[2020-06-19] VITALS (12 sets, daily range): BP systolic 130–158; BP diastolic 72–84; PULSE 88–104; RESP 18–20; TEMP 36.6–37.2; O2SAT 96–97
[2020-06-19] MEDS: Acetaminophen 325 MG Tablet 650 MG PO ×2 (00:11→10:54)
[2020-06-19] MEDS: guaiFENesin 10 ML UDC (200MG/10ML) 20 ML PO ×4 (04:50→20:41)
[2020-06-19] MEDS: 0.9% Saline Lock 10 ML Syringe IV ×2 (05:19→20:46)
[2020-06-19 06:45] LABS: Absolute Lymphocyte Count 1.74 X10^3/uL (0.83-4.51); Absolute Neutrophil Count 18.4 X10^3/uL (2.0-7.7); Basophil# 0.04 X10^3/uL; Basophil% 0.2 % (0-1); Hematocrit 42.7 % (40-54); Lymphocyte # 1.74 X10^3/ul (4.0); Lymphocyte % 8.1 % (19-41); Mean Corp Hgb Conc 32.8 g/dL (32-36); Mean Corpuscular Hgb 31.1 pg (27.0-32.0); Mean Corpuscular Volume 94.9 fL (80-94); Mean Platelet Vol. 9.1 fl (6.2-12.0); Monocyte# 0.94 X10^3/uL; Monocyte% 4.4 % (0-10); NRBC Flagged by Analyzer 0 % (0-5); Neutrophil # 18.36 X10^3/uL (2.7-7.7); Platelet Count 302 K/mm3 (150-450); RBC Distribution Width CV 13.4 % (11.6-14.6); RBC Distribution Width SD 47.6 fl (35.1-43.9); White Blood Count 21.6 K/mm3 (4.4-11.0)
[2020-06-19] MEDS: Ipratropium/Albuterol Sulfate 3 ML AMPUL.NEB INHALATION ×4 (07:12→19:33)
[2020-06-19 07:24] LABS: ALB/GLOB Ratio 0.7 RATIO (0.9-2.4); AST(SGOT) 23 U/L (15-37); Alanine Aminotransfer ALT/SGPT 27 U/L (16-61); Alkaline Phosphatase 87 U/L (45-117); Anion Gap 8 (5-15); BUN 21 mg/dL (7-18); BUN/Creat Ratio 21.9 RATIO (10-20); Calcium,Total 8.7 mg/dL (8.5-10.1); Chloride 108 mmol/L (98-107); Creatinine, Serum 0.96 mg/dL (0.70-1.30); EST Glomerular Filtration Rate 83 mL/min (>60); Est Glom Filt Rate - Afr Amer 101 mL/min (>60); Estimated Creatinine Clearance 79.53 ml/min; Globulin 4.5 g/dL (2.2-4.2); Glucose 128 mg/dL (74-106); Potassium 4.1 mmol/L (3.5-5.1); Protein, Total 7.5 g/dL (6.4-8.2); Sodium Level 137 mmol/L (136-145)
[2020-06-19] MEDS: Enoxaparin 40 MG/0.4 ML Syringe SC (08:12)
[2020-06-19] MEDS: levoFLOXacin IV 750 MG/150 ML BAG 100 MG IV (08:12)
[2020-06-19] MEDS: Pantoprazole Sodium 40 MG Tablet PO (08:13)
[2020-06-19] MEDS: Montelukast 10 MG Tablet PO (08:13)
--- NOTE | 2020-06-19 13:10 | CASEMGMT ---
AMANDA DEY Face to Face with patient for initial transition planning/care coordination assessment. RN CM introduced self and role at [facility]. Patient sitting in chair, alert and oriented, at bedside. Patient willing to participate in assessment and is able to answer all questions appropriately. Care providers, pharmacy, and demographics verified. Patient wishes to discharge home, denies need for home health at this time. Patient states he has no further needs or concerns at this time. CM to follow for discharge planning needs that may arise. PCP: Matthew Specialists: Paul special investigator [facility]; XIMENA Patel Preferred Pharmacy: [facility] Insurance: [employer] [facility] Prescription Benefit: yes Living Will/HPOA: none LNOK: Living Arrangements: Patient lives with in a condo with 2 steps to enter the home. Patient states he is independent at home. Transportation: self, DME/HHC: Patient states he has a nebulizer at home. Patient states preferred DME is [employer]. Patient currently on oxygen, will monitor need for home oxygen at discharge. Patient states he has previously had HHC with [facility]. Disposition Plan: Patient to discharge home with family support and follow-up plans in place. Irais LEZAMA, RN, CM
--- NOTE | 2020-06-19 15:16 | PCM.PN.HOSP ---
<Ed Logan - Last Filed: 06/19/20 15:16> Patient Problems: Active and Suspected Problems (Last Reviewed 05/15/19 @ 11:14 by Soraida Victoria) Pneumonia (Acute) Reason for Visit: Ongoing SOB at rest and worse with exertion. Occasional cough. No fever/chills. No CP. No LE pitting edema. Vitals/I&O's: Vital Signs Temp Pulse Resp BP Pulse Ox 97.9 F 101 H 20 H 144/84 H 96 06/19/20 14:09 06/19/20 14:09 06/19/20 14:09 06/19/20 14:09 06/19/20 14:09 Oxygen Flow Rate (L/min) 2 Oxygen Delivery Method Nasal Cannula Weight: 246 lb 4.101 oz Body Mass Index (BMI) 34.4 Intake and Output for Last 24 Hours 06/17/20 06/18/20 06/19/20 23:59 23:59 23:59 Intake Total 300 / 660 2450 / 2450 Output Total 650 / 650 800 / 800 Balance -350 / 10 1650 / 1650 General: Alert, Oriented x3, Cooperative HEENT: Atraumatic, PERRLA, EOMI, Normocephalic Neck: Supple, No JVD, Negative Carotid Bruits Lungs: Diminished, Rales, Wheezes Cardiovascular: Regular rate, No murmurs Abdomen: Bowel Sounds Present, Soft, Non Tender Extremities: No edema, Capillary Refill Less than 3 Seconds Skin: No rashes, No breakdown Musculoskeletal: No Tenderness to Palpation of Joints or Extremities Neurological: Cranial nerves II-XII grossly intact Psych/Mental Status: Normal Affect, Appropriate, Alert and oriented to time, place, person, mood and affect Microbiology Past 72 Hours 06/18/20 09:50 Mucosa - Nose Respiratory Panel (PCR) - Final 06/18/20 11:15 Urine, Clean Catch Legionella Antigen - Final 06/18/20 11:15 Urine, Clean Catch Streptococcus pneumoniae Antigen (M - Final Laboratory Results 06/18/20 06:20: Total Bilirubin 0.90, Direct Bilirubin 0.25, AST 29, ALT 26, Alkaline Phosphatase 93, Total Protein 7.7, Albumin 3.2, Globulin 4.5 H 06/19/20 06:28: WBC 21.6 H, RBC 4.50 L, Hgb 14.0, Hct 42.7, MCV 94.9 H, MCH 31.1, MCHC 32.8, RDW Std Deviation 47.6 H, RDW Coeff of Zachary 13.4, Plt Count 302, MPV 9.1, Immature Gran % (Auto) 2.300 H, Neut % (Auto) 85.0 H, Lymph % (Auto) 8.1 L, [place] % (Auto) 4.4, Eos % (Auto) 0.0, Baso % (Auto) 0.2, Absolute Neuts (auto) 18.4 H, Absolute Lymphs (auto) 1.74, Nucleated RBC % 0 06/19/20 06:28: Sodium 137, Potassium 4.1, Chloride 108 H, Carbon Dioxide 21.0, Anion Gap 8, BUN 21 H, Creatinine 0.96, Estim Creat Clear Calc 79.53, Est GFR (MDRD) Af Amer 101, Est GFR (MDRD) Non-Af 83, BUN/Creatinine Ratio 21.9 H, Glucose 128 H, Calcium 8.7, Total Bilirubin 0.50, AST 23, ALT 27, Alkaline Phosphatase 87, Total Protein 7.5, Albumin 3.0 L, Globulin 4.5 H, Albumin/Globulin Ratio 0.7 L Current Medications Acetaminophen (Acetaminophen 325 Mg Tablet) 650 mg PO Q6H PRN PRN PRN Reason: Pain Score 1-10/Temp > 100.7 F Last Admin: 06/19/20 10:54 Dose: 650 mg Documented by: Albuterol Sulfate (Albuterol 2.5 Mg/3 Ml Vial.Neb.) 2.5 mg INHALATION Q2H PRN PRN PRN Reason: SOB/Wheezing Albuterol/Ipratropium (Ipratropium/Albuterol Sulfate 3 Ml Ampul.Neb) 3 ml INHALATION Q4HWA.RT ASHISH Last Admin: 06/19/20 15:06 Dose: 3 ml Documented by: Cholestyramine Resin (Cholestyramine/Sucrose 4 Gm/Packet) 4 gm PO QHS ASHISH Last Admin: 06/18/20 21:30 Dose: 4 gm Documented by: Enoxaparin Sodium (Enoxaparin 40 Mg/0.4 Ml Syringe) 40 mg SC DAILY [facility] Last Admin: 06/19/20 08:12 Dose: 40 mg Documented by: Guaifenesin (Guaifenesin 10 Ml Udc (200mg/10ml)) 20 ml PO Q4H PRN PRN PRN Reason: COUGH Last Admin: 06/19/20 10:54 Dose: 20 ml Documented by: Levofloxacin (Levaquin Iv) 750 mg in 150 mls @ 100 mls/hr IV Q24 [facility] Last Infusion: 06/19/20 10:58 Dose: Infused Documented by: Sodium Chloride () 250 mls @ 15 mls/hr IV .[id number] PRN PRN Reason: Saline Flush Sodium Chloride () 250 mls @ 15 mls/hr IV .[id number] PRN PRN Reason: Additional IVPB Infusion Methylprednisolone (Methylprednisolone 40 Mg/Ml Vial) 40 mg IV Q8 [facility] Last Admin: 06/19/20 05:18 Dose: 40 mg Documented by: Montelukast Sodium (Montelukast 10 Mg Tablet) 10 mg PO DAILY [facility] Last Admin: 06/19/20 08:13 Dose: 10 mg Documented by: Nitroglycerin (Nitroglycerin (Inpatient Use) 0.4 Mg Tab.Subl) 0.4 mg SUBLINGUAL Q5M PRN PRN Reason: CARDIAC/CHEST PAIN Ondansetron HCl (Ondansetron 4 Mg/2 Ml Vial) 4 mg IV Q8H PRN PRN PRN Reason: NAUSEA/VOMITING Pancrelipase (Creon 12,[address] Capsule) 3 capsule PO TIDCM [facility] Last Admin: 06/19/20 12:00 Dose: 3 capsule Documented by: Pantoprazole Sodium (Pantoprazole Sodium 40 Mg Tablet) 40 mg PO DAILY [facility] Last Admin: 06/19/20 08:13 Dose: 40 mg Documented by: Senna/Docusate Sodium (Senna/Docusate Sodium 1 Tablet) 2 tablet PO BID PRN PRN PRN Reason: Constipation Sodium Chloride (0.9% Saline Lock 10 Ml Syringe) 10 - 40 ml IV UD PRN PRN Reason: SALINE FLUSH Last Admin: 06/19/20 05:19 Dose: 10 ml Documented by: STROKE Vital Signs/Narrative: Vital Signs Temp Pulse Resp BP Pulse Ox 06/19/20 14:09 97.9 F 101 H 20 H 144/84 H 96 Medical Necessity - Tobacco Use Smoking Status: Former smoker Tobacco Use: Non-smoker Assessment/Plan All Active Problems (Last Reviewed 05/15/19 @ 11:14 by Soraida Victoria) Pneumonia (Acute) Cough (Acute) History of ERCP (Acute) Subcapsular hematoma of liver (Acute) Choledocholithiasis (Acute) Transaminitis (Acute) Obstructive jaundice (Acute) Idiopathic pancreatitis (Acute) Acute on recurrent pancreatitis (Acute) CAP (community acquired pneumonia) (Resolved) Abdominal hernia (Resolved) History of bowel resection (Resolved) History of cholecystectomy (Resolved) History of appendectomy (Resolved) Acute bronchitis (Resolved) 1. Acute respiratory insufficiency/sepsis 2/2 CAP, COPD exacerbation - RLL infiltrates on CXR. + leukcoytosis worsening 2/2 steroids. tachycardia and tachypnea improved. negative lactate. Continue levaquin, solumedrol, aerosols, incentive spirometer/pep therapy. Covid neg, resp panel neg, urine antigens negative, blood cultures pending. Wean o2 as tolerated 2. Hx crohns - no flare. resume Humira at dc. 3. Chronic pancreatitis - no exacerbation. continue creon 4. HLD - cholestyramine DVT ppx: lovenox DC planning: wean o2. This patient was seen by Ed Logan PA-C under the supervision of Doctor Mcghee. <Glenys Mcghee - Last Filed: 06/19/20 15:39> Vitals/I&O's: Vital Signs Temp Pulse Resp BP Pulse Ox 97.9 F 101 H 20 H 144/84 H 96 06/19/20 14:09 06/19/20 14:09 06/19/20 14:09 06/19/20 14:09 06/19/20 14:09 Oxygen Flow Rate (L/min) 2 Oxygen Delivery Method Nasal Cannula Weight: 111.7 kg Body Mass Index (BMI) 34.4 Intake and Output for Last 24 Hours 06/17/20 06/18/20 06/19/20 23:59 23:59 23:59 Intake Total 300 / 660 2450 / 2450 Output Total 650 / 650 800 / 800 Balance -350 / 10 1650 / 1650 Microbiology Past 72 Hours 06/18/20 09:50 Mucosa - Nose Respiratory Panel (PCR) - Final 06/18/20 11:15 Urine, Clean Catch Legionella Antigen - Final 06/18/20 11:15 Urine, Clean Catch Streptococcus pneumoniae Antigen (M - Final Laboratory Results 06/18/20 06:20: Total Bilirubin 0.90, Direct Bilirubin 0.25, AST 29, ALT 26, Alkaline Phosphatase 93, Total Protein 7.7, Albumin 3.2, Globulin 4.5 H 06/19/20 06:28: WBC 21.6 H, RBC 4.50 L, Hgb 14.0, Hct 42.7, MCV 94.9 H, MCH 31.1, MCHC 32.8, RDW Std Deviation 47.6 H, RDW Coeff of Zachary 13.4, Plt Count 302, MPV 9.1, Immature Gran % (Auto) 2.300 H, Neut % (Auto) 85.0 H, Lymph % (Auto) 8.1 L, [place] % (Auto) 4.4, Eos % (Auto) 0.0, Baso % (Auto) 0.2, Absolute Neuts (auto) 18.4 H, Absolute Lymphs (auto) 1.74, Nucleated RBC % 0 06/19/20 06:28: Sodium 137, Potassium 4.1, Chloride 108 H, Carbon Dioxide 21.0, Anion Gap 8, BUN 21 H, Creatinine 0.96, Estim Creat Clear Calc 79.53, Est GFR (MDRD) Af Amer 101, Est GFR (MDRD) Non-Af 83, BUN/Creatinine Ratio 21.9 H, Glucose 128 H, Calcium 8.7, Total Bilirubin 0.50, AST 23, ALT 27, Alkaline Phosphatase 87, Total Protein 7.5, Albumin 3.0 L, Globulin 4.5 H, Albumin/Globulin Ratio 0.7 L Current Medications Acetaminophen (Acetaminophen 325 Mg Tablet) 650 mg PO Q6H PRN PRN PRN Reason: Pain Score 1-10/Temp > 100.7 F Last Admin: 06/19/20 10:54 Dose: 650 mg Documented by: Albuterol Sulfate (Albuterol 2.5 Mg/3 Ml Vial.Neb.) 2.5 mg INHALATION Q2H PRN PRN PRN Reason: SOB/Wheezing Albuterol/Ipratropium (Ipratropium/Albuterol Sulfate 3 Ml Ampul.Neb) 3 ml INHALATION Q4HWA.RT ASHISH Last Admin: 06/19/20 15:06 Dose: 3 ml Documented by: Cholestyramine Resin (Cholestyramine/Sucrose 4 Gm/Packet) 4 gm PO QHS [facility] Last Admin: 06/18/20 21:30 Dose: 4 gm Documented by: Enoxaparin Sodium (Enoxaparin 40 Mg/0.4 Ml Syringe) 40 mg SC DAILY [facility] Last Admin: 06/19/20 08:12 Dose: 40 mg Documented by: Guaifenesin (Guaifenesin 10 Ml Udc (200mg/10ml)) 20 ml PO Q4H PRN PRN PRN Reason: COUGH Last Admin: 06/19/20 10:54 Dose: 20 ml Documented by: Levofloxacin (Levaquin Iv) 750 mg in 150 mls @ 100 mls/hr IV Q24 [facility] Last Infusion: 06/19/20 10:58 Dose: Infused Documented by: Sodium Chloride () 250 mls @ 15 mls/hr IV .[id number] PRN PRN Reason: Saline Flush Sodium Chloride () 250 mls @ 15 mls/hr IV .[id number] PRN PRN Reason: Additional IVPB Infusion Methylprednisolone (Methylprednisolone 40 Mg/Ml Vial) 40 mg IV Q8 [facility] Last Admin: 06/19/20 05:18 Dose: 40 mg Documented by: Montelukast Sodium (Montelukast 10 Mg Tablet) 10 mg PO DAILY [facility] Last Admin: 06/19/20 08:13 Dose: 10 mg Documented by: Nitroglycerin (Nitroglycerin (Inpatient Use) 0.4 Mg Tab.Subl) 0.4 mg SUBLINGUAL Q5M PRN PRN Reason: CARDIAC/CHEST PAIN Ondansetron HCl (Ondansetron 4 Mg/2 Ml Vial) 4 mg IV Q8H PRN PRN PRN Reason: NAUSEA/VOMITING Pancrelipase (Creon 12,[address] Capsule) 3 capsule PO TIDCM [facility] Last Admin: 06/19/20 12:00 Dose: 3 capsule Documented by: Pantoprazole Sodium (Pantoprazole Sodium 40 Mg Tablet) 40 mg PO DAILY [facility] Last Admin: 06/19/20 08:13 Dose: 40 mg Documented by: Senna/Docusate Sodium (Senna/Docusate Sodium 1 Tablet) 2 tablet PO BID PRN PRN PRN Reason: Constipation Sodium Chloride (0.9% Saline Lock 10 Ml Syringe) 10 - 40 ml IV UD PRN PRN Reason: SALINE FLUSH Last Admin: 06/19/20 05:19 Dose: 10 ml Documented by: STROKE Vital Signs/Narrative: Vital Signs Temp Pulse Resp BP Pulse Ox 06/19/20 14:09 97.9 F 101 H 20 H 144/84 H 96 Assessment/Plan This patient was seen in conjunction with ISIDRO Garcia. I have independently interviewed and examined the patient and reviewed pertinent historical, laboratory, and other data. Please refer to ISIDRO Garcia note for his patient's presentation, findings, and recommendations. I have reviewed and his note and concur with his documentation Patient was seen and examined. Complains of shortness of breath with ambulation. Denied any fever or chills. He has been coughing productive of greenish sputum. Physical Exam: Gen: Obese, not pale, not jaundiced, on 2L oxygen CVS:HS I +II, regular, no murmurs RESP: Diminished at lung bases, scattered wheezes, fine rales at the bases GI: BS present and normal, soft, nontender, no palpable organs EXT:No edema ASSESSMENT: 1. Acute respiratory insufficiency 2. Acute COPD exacerbation 3. Acute pneumonia 4. Crohn's disease 5. Chronic pancreatitis Plan: Continue on oxygen, aggressive pulmonary toileting, encourage use of incentive spirometer Continue on IV steroids, IV antibiotics Inpatient E&M: 72567 Subs Hosp L2 Multi Select Codes - Visit Charges Visit Charges: 01165 Subs Hosp L2
[2020-06-19] MEDS: Cholestyramine/Sucrose 4 GM/PACKET PO (20:42)
[2020-06-20] VITALS (15 sets, daily range): BP systolic 118–153; BP diastolic 74–83; PULSE 72–95; RESP 14–22; TEMP 36.4–37.1; O2SAT 94–98
[2020-06-20] MEDS: Acetaminophen 325 MG Tablet 650 MG PO ×2 (00:45→14:43)
[2020-06-20] MEDS: guaiFENesin 10 ML UDC (200MG/10ML) 20 ML PO ×3 (04:50→16:10)
[2020-06-20] MEDS: 0.9% Saline Lock 10 ML Syringe IV ×4 (05:00→21:10)
[2020-06-20] MEDS: Ipratropium/Albuterol Sulfate 3 ML AMPUL.NEB INHALATION ×4 (07:35→20:19)
[2020-06-20] MEDS: Enoxaparin 40 MG/0.4 ML Syringe SC (07:59)
[2020-06-20] MEDS: levoFLOXacin IV 750 MG/150 ML BAG 100 MG IV (07:59)
[2020-06-20] MEDS: Montelukast 10 MG Tablet PO (07:59)
[2020-06-20] MEDS: Pantoprazole Sodium 40 MG Tablet PO (07:59)
--- NOTE | 2020-06-20 11:24 | CASEMGMT ---
Ambulatory pulse ox complete and pt does not qualify for home oxygen at this time. Therapy states no need for any further therapy at this time. Naga PATEL CM
--- NOTE | 2020-06-20 14:39 | PN_ITS ---
<Ed Logan - Last Filed: 06/20/20 14:39> Patient Problems: Active and Suspected Problems (Last Reviewed 05/15/19 @ 11:14 by Soraida Victoria) Pneumonia (Acute) Reason for Visit: Pt anxious about being off oxygen despite having adequate pulse ox. The patient was has no fever / chills. Ongoing productive cough. Pt is SOB at rest with conversation and with exertion. Vitals/I&O's: Vital Signs Temp Pulse Resp BP Pulse Ox 97.5 F L 72 14 133/83 H 96 06/20/20 10:49 06/20/20 11:01 06/20/20 11:01 06/20/20 10:49 06/20/20 11:26 Oxygen Flow Rate (L/min) 2 Oxygen Delivery Method Nasal Cannula Weight: 240 lb 11.916 oz Body Mass Index (BMI) 34.4 Intake and Output for Last 24 Hours 06/18/20 06/19/20 06/20/20 23:59 23:59 23:59 Intake Total 300 / 660 3270 / 3670 670 / 670 Output Total 650 / 650 800 / 800 Balance -350 / 10 2470 / 2870 670 / 670 General: Alert, Oriented x3, Cooperative HEENT: Atraumatic, PERRLA, EOMI, Normocephalic Neck: Supple, No JVD, Negative Carotid Bruits Lungs: Diminished, Wheezes Cardiovascular: Regular rate, No murmurs Abdomen: Bowel Sounds Present, Soft, Non Tender Extremities: No edema, Capillary Refill Less than 3 Seconds Skin: No rashes, No breakdown Musculoskeletal: No Tenderness to Palpation of Joints or Extremities Neurological: Cranial nerves II-XII grossly intact Psych/Mental Status: Anxious, Alert and oriented to time, place, person, mood and affect Microbiology Past 72 Hours 06/18/20 07:35 Blood Culture (Wb) - Left Hand Blood Culture - Preliminary No growth in 48 hours. 06/18/20 07:30 Blood Culture (Wb) - Anticubital Right Blood Culture - Preliminary No growth in 48 hours. 06/18/20 09:50 Mucosa - Nose Respiratory Panel (PCR) - Final 06/18/20 11:15 Urine, Clean Catch Legionella Antigen - Final 06/18/20 11:15 Urine, Clean Catch Streptococcus pneumoniae Antigen (M - Final Current Medications Acetaminophen (Acetaminophen 325 Mg Tablet) 650 mg PO Q6H PRN PRN PRN Reason: Pain Score 1-10/Temp > 100.7 F Last Admin: 06/20/20 00:45 Dose: 650 mg Documented by: Albuterol Sulfate (Albuterol 2.5 Mg/3 Ml Vial.Neb.) 2.5 mg INHALATION Q2H PRN PRN PRN Reason: SOB/Wheezing Albuterol/Ipratropium (Ipratropium/Albuterol Sulfate 3 Ml Ampul.Neb) 3 ml INHALATION Q4HWA.RT [facility] Last Admin: 06/20/20 10:56 Dose: 3 ml Documented by: Cholestyramine Resin (Cholestyramine/Sucrose 4 Gm/Packet) 4 gm PO QHS [facility] Last Admin: 06/19/20 20:42 Dose: 4 gm Documented by: Enoxaparin Sodium (Enoxaparin 40 Mg/0.4 Ml Syringe) 40 mg SC DAILY [facility] Last Admin: 06/20/20 07:59 Dose: 40 mg Documented by: Guaifenesin (Guaifenesin 10 Ml Udc (200mg/10ml)) 20 ml PO Q4H PRN PRN PRN Reason: COUGH Last Admin: 06/20/20 10:54 Dose: 20 ml Documented by: Levofloxacin (Levaquin Iv) 750 mg in 150 mls @ 100 mls/hr IV Q24 [facility] Last Infusion: 06/20/20 10:49 Dose: Infused Documented by: Sodium Chloride () 250 mls @ 15 mls/hr IV .[id number] PRN PRN Reason: Saline Flush Sodium Chloride () 250 mls @ 15 mls/hr IV .[id number] PRN PRN Reason: Additional IVPB Infusion Methylprednisolone (Methylprednisolone 40 Mg/Ml Vial) 40 mg IV Q8 [facility] Last Admin: 06/20/20 05:00 Dose: 40 mg Documented by: Montelukast Sodium (Montelukast 10 Mg Tablet) 10 mg PO DAILY [facility] Last Admin: 06/20/20 07:59 Dose: 10 mg Documented by: Nitroglycerin (Nitroglycerin (Inpatient Use) 0.4 Mg Tab.Subl) 0.4 mg SUBLINGUAL Q5M PRN PRN Reason: CARDIAC/CHEST PAIN Ondansetron HCl (Ondansetron 4 Mg/2 Ml Vial) 4 mg IV Q8H PRN PRN PRN Reason: NAUSEA/VOMITING Pancrelipase (Creon 12,[address] Capsule) 3 capsule PO TIDCM [facility] Last Admin: 06/20/20 12:26 Dose: 3 capsule Documented by: Pantoprazole Sodium (Pantoprazole Sodium 40 Mg Tablet) 40 mg PO DAILY [facility] Last Admin: 06/20/20 07:59 Dose: 40 mg Documented by: Senna/Docusate Sodium (Senna/Docusate Sodium 1 Tablet) 2 tablet PO BID PRN PRN PRN Reason: Constipation Sodium Chloride (0.9% Saline Lock 10 Ml Syringe) 10 - 40 ml IV UD PRN PRN Reason: SALINE FLUSH Last Admin: 06/20/20 08:04 Dose: 10 ml Documented by: STROKE Vital Signs/Narrative: Vital Signs Temp Pulse Resp BP Pulse Ox 06/20/20 11:26 96 06/20/20 11:01 72 14 06/20/20 10:49 97.5 F L 80 20 H 133/83 H 97 Medical Necessity - Tobacco Use Smoking Status: Former smoker Tobacco Use: Non-smoker Assessment/Plan All Active Problems (Last Reviewed 05/15/19 @ 11:14 by Soraida Victoria) Pneumonia (Acute) Cough (Acute) History of ERCP (Acute) Subcapsular hematoma of liver (Acute) Choledocholithiasis (Acute) Transaminitis (Acute) Obstructive jaundice (Acute) Idiopathic pancreatitis (Acute) Acute on recurrent pancreatitis (Acute) CAP (community acquired pneumonia) (Resolved) Abdominal hernia (Resolved) History of bowel resection (Resolved) History of cholecystectomy (Resolved) History of appendectomy (Resolved) Acute bronchitis (Resolved) 1. Acute respiratory insufficiency/sepsis 2/2 CAP, COPD exacerbation - continue levaquin, solumedrol, aerosols, incentive spirometer, pep therapy. urine antivens negative, resp panel neg, blood cx neg at 48 hours. 2. Hx crohns - no flare. resume Humira at dc. 3. Chronic pancreatitis - no exacerbation. continue creon 4. HLD - cholestyramine DVT ppx: lovenox DC planning: walking pulse ox prior to DC. Possibly tomorrow. This patient was seen by Ed Logan PA-C under the supervision of Doctor Taz. <Glenys Mcghee - Last Filed: 06/20/20 16:43> Vitals/I&O's: Vital Signs Temp Pulse Resp BP Pulse Ox 98.2 F 87 20 H 153/80 H 94 06/20/20 16:07 06/20/20 16:07 06/20/20 16:07 06/20/20 16:07 06/20/20 16:07 Oxygen Flow Rate (L/min) 2 Oxygen Delivery Method Nasal Cannula Weight: 109.2 kg Body Mass Index (BMI) 34.4 Intake and Output for Last 24 Hours 06/18/20 06/19/20 06/20/20 23:59 23:59 23:59 Intake Total 300 / 660 3270 / 3670 1270 / 1270 Output Total 650 / 650 800 / 800 Balance -350 / 10 2470 / 2870 1270 / 1270 Microbiology Past 72 Hours 06/18/20 07:35 Blood Culture (Wb) - Left Hand Blood Culture - Preliminary No growth in 48 hours. 06/18/20 07:30 Blood Culture (Wb) - Anticubital Right Blood Culture - Preliminary No growth in 48 hours. 06/18/20 09:50 Mucosa - Nose Respiratory Panel (PCR) - Final 06/18/20 11:15 Urine, Clean Catch Legionella Antigen - Final 06/18/20 11:15 Urine, Clean Catch Streptococcus pneumoniae Antigen (M - Final Laboratory Results 06/20/20 15:31: Magnesium 2.4 Current Medications Acetaminophen (Acetaminophen 325 Mg Tablet) 650 mg PO Q6H PRN PRN PRN Reason: Pain Score 1-10/Temp > 100.7 F Last Admin: 06/20/20 14:43 Dose: 650 mg Documented by: Albuterol Sulfate (Albuterol 2.5 Mg/3 Ml Vial.Neb.) 2.5 mg INHALATION Q6H PRN PRN PRN Reason: SOB/Wheezing Albuterol/Ipratropium (Ipratropium/Albuterol Sulfate 3 Ml Ampul.Neb) 3 ml INHALATION Q4HWA.RT ASHISH Last Admin: 06/20/20 15:07 Dose: 3 ml Documented by: Cholestyramine Resin (Cholestyramine/Sucrose 4 Gm/Packet) 4 gm PO QHS [facility] Last Admin: 06/19/20 20:42 Dose: 4 gm Documented by: Enoxaparin Sodium (Enoxaparin 40 Mg/0.4 Ml Syringe) 40 mg SC DAILY [facility] Last Admin: 06/20/20 07:59 Dose: 40 mg Documented by: Guaifenesin (Guaifenesin 10 Ml Udc (200mg/10ml)) 20 ml PO Q4H PRN PRN PRN Reason: COUGH Last Admin: 06/20/20 16:10 Dose: 20 ml Documented by: Levofloxacin (Levaquin Iv) 750 mg in 150 mls @ 100 mls/hr IV Q24 [facility] Last Infusion: 06/20/20 10:49 Dose: Infused Documented by: Sodium Chloride () 250 mls @ 15 mls/hr IV .[id number] PRN PRN Reason: Saline Flush Sodium Chloride () 250 mls @ 15 mls/hr IV .[id number] PRN PRN Reason: Additional IVPB Infusion Methylprednisolone (Methylprednisolone 40 Mg/Ml Vial) 40 mg IV Q8 [facility] Last Admin: 06/20/20 14:39 Dose: 40 mg Documented by: Montelukast Sodium (Montelukast 10 Mg Tablet) 10 mg PO DAILY [facility] Last Admin: 06/20/20 07:59 Dose: 10 mg Documented by: Nitroglycerin (Nitroglycerin (Inpatient Use) 0.4 Mg Tab.Subl) 0.4 mg SUBLINGUAL Q5M PRN PRN Reason: CARDIAC/CHEST PAIN Ondansetron HCl (Ondansetron 4 Mg/2 Ml Vial) 4 mg IV Q8H PRN PRN PRN Reason: NAUSEA/VOMITING Pancrelipase (Creon 12,[address] Capsule) 3 capsule PO TIDCM [facility] Last Admin: 06/20/20 12:26 Dose: 3 capsule Documented by: Pantoprazole Sodium (Pantoprazole Sodium 40 Mg Tablet) 40 mg PO DAILY [facility] Last Admin: 06/20/20 07:59 Dose: 40 mg Documented by: Senna/Docusate Sodium (Senna/Docusate Sodium 1 Tablet) 2 tablet PO BID PRN PRN PRN Reason: Constipation Sodium Chloride (0.9% Saline Lock 10 Ml Syringe) 10 - 40 ml IV UD PRN PRN Reason: SALINE FLUSH Last Admin: 06/20/20 14:39 Dose: 10 ml Documented by: STROKE Vital Signs/Narrative: Vital Signs Temp Pulse Resp BP Pulse Ox 06/20/20 16:07 98.2 F 87 20 H 153/80 H 94 06/20/20 15:07 74 16 06/20/20 15:00 79 Assessment/Plan This patient was seen in conjunction with ISIDRO Garcia. I have independently interviewed and examined the patient and reviewed pertinent historical, laboratory, and other data. Please refer to ISIDRO Garcia note for his patient's presentation, findings, and recommendations. I have reviewed and his note and concur with his documentation Patient was seen and examined. Off oxygen. Still has some wheezes Physical Exam: Gen: Obese, not pale, not jaundiced, on 2L oxygen CVS:HS I +II, regular, no murmurs RESP: Diminished at lung bases, scattered wheezes, fine rales at the bases GI: BS present and normal, soft, nontender, no palpable organs EXT:No edema ASSESSMENT: 1. Acute respiratory insufficiency 2. Acute COPD exacerbation 3. Acute pneumonia 4. Crohn's disease 5. Chronic pancreatitis Plan: Continue on oxygen, aggressive pulmonary toileting, encourage use of incentive spirometer Continue on IV steroids, IV antibiotics Inpatient E&M: [id number] [facility] Hosp L2
[2020-06-20 15:58] LABS: Magnesium 2.4 mg/dL (1.6-2.6)
[2020-06-20] MEDS: Cholestyramine/Sucrose 4 GM/PACKET PO (21:10)
--- NOTE | 2020-06-20 21:25 | NURSING ---
Verbal report given to Barrie Hameed RN. He will resume care of patient at this time .
[2020-06-21] VITALS (7 sets, daily range): BP systolic 136; BP diastolic 78; PULSE 68–81; RESP 17–20; TEMP 36.9; O2SAT 84–96
[2020-06-21] MEDS: Acetaminophen 325 MG Tablet 650 MG PO (01:32)
[2020-06-21] MEDS: guaiFENesin 10 ML UDC (200MG/10ML) 20 ML PO ×3 (01:32→15:23)
[2020-06-21] MEDS: Ipratropium/Albuterol Sulfate 3 ML AMPUL.NEB INHALATION ×3 (06:57→14:41)
[2020-06-21 07:29] LABS: Anion Gap 6 (5-15); BUN 30 mg/dL (7-18); BUN/Creat Ratio 29.7 RATIO (10-20); Calcium,Total 8.6 mg/dL (8.5-10.1); Chloride 104 mmol/L (98-107); Creatinine, Serum 1.01 mg/dL (0.70-1.30); EST Glomerular Filtration Rate 78 mL/min (>60); Est Glom Filt Rate - Afr Amer 95 mL/min (>60); Estimated Creatinine Clearance 75.59 ml/min; Glucose 112 mg/dL (74-106); Potassium 3.9 mmol/L (3.5-5.1); Sodium Level 136 mmol/L (136-145)
--- NOTE | 2020-06-21 08:01 | CON.PCM_ITS ---
Problem List (1) Pneumonia Status: Acute Qualifiers: Pneumonia type: due to unspecified organism Laterality: right Lung location: lower lobe of lung Qualified Code(s): J18.9 - Pneumonia, unspecified organism (2) COPD exacerbation Status: Chronic (3) Chronic pancreatitis Status: Chronic Qualifiers: Pancreatitis type: unspecified pancreatitis type (4) Crohn's disease of small intestine Status: Chronic Qualifiers: Digestive disease complication type: unspecified complication (5) Dyslipidemia Status: Chronic Reason for Consult History of Present Illness: The patient is a 65 year old M [] Past Medical History Past Medical History (Chronic Problems): Chronic Problems (Last Reviewed 05/15/19 @ 11:14 by Soraida Victoria) COPD exacerbation (Chronic) Shortness of breath (Chronic) Gynecomazia (Chronic) Chronic pancreatitis (Chronic) Crohn's disease of small intestine (Chronic) Dyslipidemia (Chronic) Medical History: Medical History (Last Reviewed 05/15/19 @ 11:14 by Soraida Victoria) Gynecomazia (Chronic) N62 Acute bronchitis (Resolved) J20.9 Chronic pancreatitis (Chronic) K86.1 Crohn's disease of small intestine (Chronic) K50.00 Dyslipidemia (Chronic) E78.5 Allergies budesonide Allergy (Verified 06/18/20 05:41) Swelling Home Medications: Ambulatory Orders Medication Instructions Recorded Adalimumab [Humira] 40 mg SQ Q14D 01/10/14 Omeprazole [Prilosec] 40 mg PO DAILY 01/10/14 Cholestyramine (with Sugar) 1 dose PO QHS 12/16/17 [Cholestyramine Powder] lipase/protease/amylase [Creon DR 3 cap PO TIDCM 06/21/18 12,000 Unit Capsule] albuterol sulfate 90 mcg/actuation 2 puff INHALATION Q6H PRN #1 device 05/15/19 aerosol inhaler azelastine 137 mcg (0.1 %) nasal 1 spray INTRANASAL Q12H #30 ml 05/15/19 spray aerosol Ondansetron [Zofran Odt] 4 mg PO Q12H PRN PRN 09/06/19 predniSONE tablet 60 mg PO DAILY #15 tab 09/07/19 Fluticasone Propionate 1 spray INHALATION DAILY 06/18/20 Ipratropium [place] 0.2 mg IH Q6H PRN PRN 06/18/20 Montelukast [Singulair] 10 mg PO DAILY 06/18/20 Surgical History: Surgical History (Last Reviewed 05/15/19 @ 11:14 by Soraida Victoria) History of ERCP (Acute) Z98.890 06/19/2018 Abdominal hernia (Resolved) K46.9 History of bowel resection (Resolved) Z98.890, Z90.49 History of cholecystectomy (Resolved) Z90.49 History of appendectomy (Resolved) Z90.49 Surgical History: appendectomy, cholecystectomy, herniorrhaphy, - - s/p bowel resection, s/p ERCP Psychiatric History: No pertinent psych hx Lives: Spouse/ Significant Other Smoking Status: Former smoker Tobacco Use: Non-smoker Alcohol: None Drugs: None - *Family History Maternal History Items: No pertinent history Paternal History Items: - - Father with a history of lung cancer and concurrent tobacco use. Patient Problems: Active and Suspected Problems (Last Reviewed 05/15/19 @ 11:14 by Soraida Victoria) Pneumonia (Acute) - Physical Exam Vitals/I&O's: Vital Signs Temp Pulse Resp BP Pulse Ox 98.5 F 76 19 H 136/78 H 93 06/21/20 01:55 06/21/20 06:58 06/21/20 06:58 06/21/20 01:55 06/21/20 06:58 Oxygen Flow Rate (L/min) 2 Oxygen Delivery Method Room Air Weight: 109 kg Body Mass Index (BMI) 34.4 Intake and Output for Last 24 Hours 06/19/20 06/20/20 06/21/20 23:59 23:59 23:59 Intake Total 3270 / 3670 2120 / 2120 240 / 240 Output Total 800 / 800 Balance 2470 / 2870 2120 / 2120 240 / 240 Microbiology Past 72 Hours 06/18/20 07:35 Blood Culture (Wb) - Left Hand Blood Culture - Preliminary No growth in 48 hours. 06/18/20 07:30 Blood Culture (Wb) - Anticubital Right Blood Culture - Preliminary No growth in 48 hours. 06/18/20 09:50 Mucosa - Nose Respiratory Panel (PCR) - Final 06/18/20 11:15 Urine, Clean Catch Legionella Antigen - Final 06/18/20 11:15 Urine, Clean Catch Streptococcus pneumoniae Antigen (M - Final Laboratory Results 06/20/20 15:31: Magnesium 2.4 06/21/20 06:25: Sodium 136, Potassium 3.9, Chloride 104, Carbon Dioxide 26.0, Anion Gap 6, BUN 30 H, Creatinine 1.01, Estim Creat Clear Calc 75.59, Est GFR (MDRD) Af Amer 95, Est GFR (MDRD) Non-Af 78, BUN/Creatinine Ratio 29.7 H, Glucose 112 H, Calcium 8.6 Current Medications Acetaminophen (Acetaminophen 325 Mg Tablet) 650 mg PO Q6H PRN PRN PRN Reason: Pain Score 1-10/Temp > 100.7 F Last Admin: 06/21/20 01:32 Dose: 650 mg Documented by: Albuterol Sulfate (Albuterol 2.5 Mg/3 Ml Vial.Neb.) 2.5 mg INHALATION Q6H PRN PRN PRN Reason: SOB/Wheezing Albuterol/Ipratropium (Ipratropium/Albuterol Sulfate 3 Ml Ampul.Neb) 3 ml INHALATION Q4HWA.RT [facility] Last Admin: 06/21/20 06:57 Dose: 3 ml Documented by: Cholestyramine Resin (Cholestyramine/Sucrose 4 Gm/Packet) 4 gm PO QHS [facility] Last Admin: 06/20/20 21:10 Dose: 4 gm Documented by: Enoxaparin Sodium (Enoxaparin 40 Mg/0.4 Ml Syringe) 40 mg SC DAILY [facility] Last Admin: 06/20/20 07:59 Dose: 40 mg Documented by: Guaifenesin (Guaifenesin 10 Ml Udc (200mg/10ml)) 20 ml PO Q4H PRN PRN PRN Reason: COUGH Last Admin: 06/21/20 06:09 Dose: 20 ml Documented by: Levofloxacin (Levaquin Iv) 750 mg in 150 mls @ 100 mls/hr IV Q24 [facility] Last Infusion: 06/20/20 10:49 Dose: Infused Documented by: Sodium Chloride () 250 mls @ 15 mls/hr IV .[id number] PRN PRN Reason: Saline Flush Sodium Chloride () 250 mls @ 15 mls/hr IV .[id number] PRN PRN Reason: Additional IVPB Infusion Methylprednisolone (Methylprednisolone 40 Mg/Ml Vial) 40 mg IV Q8 [facility] Last Admin: 06/21/20 06:08 Dose: 40 mg Documented by: Montelukast Sodium (Montelukast 10 Mg Tablet) 10 mg PO DAILY [facility] Last Admin: 06/20/20 07:59 Dose: 10 mg Documented by: Nitroglycerin (Nitroglycerin (Inpatient Use) 0.4 Mg Tab.Subl) 0.4 mg SUBLINGUAL Q5M PRN PRN Reason: CARDIAC/CHEST PAIN Ondansetron HCl (Ondansetron 4 Mg/2 Ml Vial) 4 mg IV Q8H PRN PRN PRN Reason: NAUSEA/VOMITING Pancrelipase (Creon 12,[address] Capsule) 3 capsule PO TIDCM [facility] Last Admin: 06/20/20 17:24 Dose: 3 capsule Documented by: Pantoprazole Sodium (Pantoprazole Sodium 40 Mg Tablet) 40 mg PO DAILY [facility] Last Admin: 06/20/20 07:59 Dose: 40 mg Documented by: Senna/Docusate Sodium (Senna/Docusate Sodium 1 Tablet) 2 tablet PO BID PRN PRN PRN Reason: Constipation Sodium Chloride (0.9% Saline Lock 10 Ml Syringe) 10 - 40 ml IV UD PRN PRN Reason: SALINE FLUSH Last Admin: 06/20/20 21:10 Dose: 20 ml Documented by: Assessment/Plan All Active Problems (Last Reviewed 05/15/19 @ 11:14 by Soraida Victoria) Pneumonia (Acute) Cough (Acute) History of ERCP (Acute) Subcapsular hematoma of liver (Acute) Choledocholithiasis (Acute) Transaminitis (Acute) Obstructive jaundice (Acute) Idiopathic pancreatitis (Acute) Acute on recurrent pancreatitis (Acute) CAP (community acquired pneumonia) (Resolved) Abdominal hernia (Resolved) History of bowel resection (Resolved) History of cholecystectomy (Resolved) History of appendectomy (Resolved) Acute bronchitis (Resolved)
--- NOTE | 2020-06-21 08:02 | DCINST_ITS ---
- Discharge Diagnoses Current Active Problems: Current Active and Chronic Problems (Last Reviewed 05/15/19 @ 11:14 by Soraida Victoria) Pneumonia (Acute) COPD exacerbation (Chronic) Chronic pancreatitis (Chronic) Crohn's disease of small intestine (Chronic) Dyslipidemia (Chronic) Reason(s) for Visit for Discharge Instructions: SOB, cough, pneumonia You will use the following diet at home:: Regular Your food should be the consistency of: Regular Your liquids should be the consistency of: Regular/Thin Discharge Activity: Return to Normal Activity Additional Instructions: Complete your antibiotics. Continue to use your incentive spirometer. Follow-up with your primary care doctor within 1 to 2 weeks. Allergies/Adverse Reactions: Allergies budesonide Allergy (Verified 06/18/20 05:41) Swelling Medications to take at Discharge Adalimumab [Humira] 40 mg SQ Q14D 01/10/14 Omeprazole [Prilosec] 40 mg PO DAILY 01/10/14 Cholestyramine (with Sugar) [Cholestyramine Powder] 1 dose PO QHS 12/16/17 lipase/protease/amylase [Creon DR 12,000 Unit Capsule] 3 cap PO TIDCM 06/21/18 albuterol sulfate 90 mcg/actuation aerosol inhaler 2 puff INHALATION Q6H PRN #1 device 05/15/19 azelastine 137 mcg (0.1 %) nasal spray aerosol 1 spray INTRANASAL Q12H #30 ml 05/15/19 Ondansetron [Zofran Odt] 4 mg PO Q12H PRN PRN 09/06/19 predniSONE tablet 60 mg PO DAILY #15 tab 09/07/19 Fluticasone Propionate 1 spray INHALATION DAILY 06/18/20 Ipratropium [place] 0.2 mg IH Q6H PRN PRN 06/18/20 Montelukast [Singulair] 10 mg PO DAILY 06/18/20 Levofloxacin [Levaquin] 750 mg PO DAILY 7 Days #7 tab 06/21/20 Primary Care Physician: Shante Castro MD [Primary Care Provider] - Please follow up with your Primary Care Physician in: within 1-2 weeks Test Results: Test results from this visit will be discussed in further detail at your follow- up appointment, if applicable. Proposed Discharge Date: 06/21/20
--- NOTE | 2020-06-21 08:08 | DS.PCM_ITS ---
Discharge Date and Diagnosis - Problem List Patient Problems: Active and Suspected Problems (Last Reviewed 05/15/19 @ 11:14 by Soraida Victoria) Pneumonia (Acute) Date of Admission: 06/18/20 Date of Discharge: 06/21/20 - Primary Discharge Diagnosis Acute Problems: Active Problems (Last Reviewed 05/15/19 @ 11:14 by Soraida Victoria) Acute respiratory insufficiency Pneumonia Acute COPD exacerbation - Secondary Discharge Diagnosis Chronic Problems: Chronic Problems (Last Reviewed 05/15/19 @ 11:14 by Soraida Victoria) COPD exacerbation (Chronic) Shortness of breath (Chronic) Gynecomazia (Chronic) Chronic pancreatitis (Chronic) Crohn's disease of small intestine (Chronic) Dyslipidemia (Chronic) Hospital Course and Treatment Imaging Results: Clinical Impression(s) from Imaging Studies Chest X-Ray 06/18/20 05:45 IMPRESSION: Right lower lobe infiltrates.. There is no demonstrated pleural abnormality. Normal size heart. Electronically Signed: Missael Crystal MD at 6:54 EDT , Service support , Operations: None, ERCP, - Procedures: None Summary of Care Provided: The patient is a 65 year old M with past medical history of COPD, not on oxygen, Crohn's disease, chronic pancreatitis, obesity who comes in progressive shortness of breath and cough ongoing for about 2 weeks. Patient's COVID-19 test was negative. His admitting chest x-ray showed right lower lobe infiltr ates. Patient was admitted to the telemetry floor, maintained on oxygen, managed as acute COPD exacerbation with pneumonia. Started on IV antibiotics. He continued to improve and was weaned off oxygen. On the day of discharge, patient qualified for home oxygen. He was asked to continue with IV Levaquin, use his incentive spirometer. He needs to follow-up with his wine steward within 1 to 2 weeks for evaluation of continued oxygen requirement. Patient Problems: Active and Suspected Problems (Last Reviewed 05/15/19 @ 11:14 by Soraida Victoria) Pneumonia (Acute) Subjective: On the day of discharge, patient was seen and examined. He complained of short of breath on exertion. He was found to be hypoxic and qualified for home oxygen. Objective: Physical exam: General: Alert, Oriented x3, Cooperative, No apparent distress, - - obese HEENT: Atraumatic, PERRLA, EOMI, Normocephalic Oral: Moist Mucosa Neck: Supple Lungs: Diminished, Wheezes - ++ Cardiovascular: Regular rate, Regular Rhythm, Normal S1, Normal S2, No murmurs Abdomen: Bowel Sounds Present, Soft, Non Tender, Non-Distended, No Hepato- splenomegaly, Obese Extremities: No edema Skin: No rashes Musculoskeletal: No Tenderness to Palpation of Joints or Extremities Lymphatic: No Cervical, Supraclavicular, or Inguinal Adenopathy Neurological: Cranial nerves II-XII grossly intact, Neuro grossly intact Psych/Mental Status: Normal Affect, Appropriate - Physical Exam Vitals/I&O's: Vital Signs Temp Pulse Resp BP Pulse Ox 98.5 F 76 19 H 136/78 H 93 06/21/20 01:55 06/21/20 06:58 06/21/20 06:58 06/21/20 01:55 06/21/20 06:58 Oxygen Flow Rate (L/min) 2 Oxygen Delivery Method Room Air Weight: 109 kg Body Mass Index (BMI) 34.4 Intake and Output for Last 24 Hours 06/19/20 06/20/20 06/21/20 23:59 23:59 23:59 Intake Total 3270 / 3670 2120 / 2120 240 / 240 Output Total 800 / 800 Balance 2470 / 2870 2120 / 2120 240 / 240 Microbiology Past 72 Hours 06/18/20 07:35 Blood Culture (Wb) - Left Hand Blood Culture - Preliminary No growth in 48 hours. 06/18/20 07:30 Blood Culture (Wb) - Anticubital Right Blood Culture - Preliminary No growth in 48 hours. 06/18/20 09:50 Mucosa - Nose Respiratory Panel (PCR) - Final 06/18/20 11:15 Urine, Clean Catch Legionella Antigen - Final 06/18/20 11:15 Urine, Clean Catch Streptococcus pneumoniae Antigen (M - Final Laboratory Results 06/20/20 15:31: Magnesium 2.4 06/21/20 06:25: Sodium 136, Potassium 3.9, Chloride 104, Carbon Dioxide 26.0, Anion Gap 6, BUN 30 H, Creatinine 1.01, Estim Creat Clear Calc 75.59, Est GFR (MDRD) Af Amer 95, Est GFR (MDRD) Non-Af 78, BUN/Creatinine Ratio 29.7 H, Glucose 112 H, Calcium 8.6 Current Medications Acetaminophen (Acetaminophen 325 Mg Tablet) 650 mg PO Q6H PRN PRN PRN Reason: Pain Score 1-10/Temp > 100.7 F Last Admin: 06/21/20 01:32 Dose: 650 mg Documented by: Albuterol Sulfate (Albuterol 2.5 Mg/3 Ml Vial.Neb.) 2.5 mg INHALATION Q6H PRN PRN PRN Reason: SOB/Wheezing Albuterol/Ipratropium (Ipratropium/Albuterol Sulfate 3 Ml Ampul.Neb) 3 ml INHALATION Q4HWA.RT [facility] Last Admin: 06/21/20 06:57 Dose: 3 ml Documented by: Cholestyramine Resin (Cholestyramine/Sucrose 4 Gm/Packet) 4 gm PO QHS [facility] Last Admin: 06/20/20 21:10 Dose: 4 gm Documented by: Enoxaparin Sodium (Enoxaparin 40 Mg/0.4 Ml Syringe) 40 mg SC DAILY [facility] Last Admin: 06/20/20 07:59 Dose: 40 mg Documented by: Guaifenesin (Guaifenesin 10 Ml Udc (200mg/10ml)) 20 ml PO Q4H PRN PRN PRN Reason: COUGH Last Admin: 06/21/20 06:09 Dose: 20 ml Documented by: Levofloxacin (Levaquin Iv) 750 mg in 150 mls @ 100 mls/hr IV Q24 [facility] Last Infusion: 06/20/20 10:49 Dose: Infused Documented by: Sodium Chloride () 250 mls @ 15 mls/hr IV .[id number] PRN PRN Reason: Saline Flush Sodium Chloride () 250 mls @ 15 mls/hr IV .[id number] PRN PRN Reason: Additional IVPB Infusion Methylprednisolone (Methylprednisolone 40 Mg/Ml Vial) 40 mg IV Q8 [facility] Last Admin: 06/21/20 06:08 Dose: 40 mg Documented by: Montelukast Sodium (Montelukast 10 Mg Tablet) 10 mg PO DAILY [facility] Last Admin: 06/20/20 07:59 Dose: 10 mg Documented by: Nitroglycerin (Nitroglycerin (Inpatient Use) 0.4 Mg Tab.Subl) 0.4 mg SUBLINGUAL Q5M PRN PRN Reason: CARDIAC/CHEST PAIN Ondansetron HCl (Ondansetron 4 Mg/2 Ml Vial) 4 mg IV Q8H PRN PRN PRN Reason: NAUSEA/VOMITING Pancrelipase (Creon 12,[address] Capsule) 3 capsule PO TIDCM [facility] Last Admin: 06/20/20 17:24 Dose: 3 capsule Documented by: Pantoprazole Sodium (Pantoprazole Sodium 40 Mg Tablet) 40 mg PO DAILY [facility] Last Admin: 06/20/20 07:59 Dose: 40 mg Documented by: Senna/Docusate Sodium (Senna/Docusate Sodium 1 Tablet) 2 tablet PO BID PRN PRN PRN Reason: Constipation Sodium Chloride (0.9% Saline Lock 10 Ml Syringe) 10 - 40 ml IV UD PRN PRN Reason: SALINE FLUSH Last Admin: 06/20/20 21:10 Dose: 20 ml Documented by: Discharge Diet: Low fat/ Low Cholesterol, 2000 mg Sodium Diet Discharge Activity: Return to Normal Activity Home Medications: Medications to take at Discharge Adalimumab [Humira] 40 mg SQ Q14D 01/10/14 Omeprazole [Prilosec] 40 mg PO DAILY 01/10/14 Cholestyramine (with Sugar) [Cholestyramine Powder] 1 dose PO QHS 12/16/17 lipase/protease/amylase [Creon DR 12,000 Unit Capsule] 3 cap PO TIDCM 06/21/18 albuterol sulfate 90 mcg/actuation aerosol inhaler 2 puff INHALATION Q6H PRN #1 device 05/15/19 azelastine 137 mcg (0.1 %) nasal spray aerosol 1 spray INTRANASAL Q12H #30 ml 05/15/19 Ondansetron [Zofran Odt] 4 mg PO Q12H PRN PRN 09/06/19 Fluticasone Propionate 1 spray INHALATION DAILY 06/18/20 Ipratropium [place] 0.2 mg IH Q6H PRN PRN 06/18/20 Montelukast [Singulair] 10 mg PO DAILY 06/18/20 Levofloxacin [Levaquin] 750 mg PO DAILY 7 Days #7 tab 06/21/20 predniSONE tablet 60 mg PO DAILY 06/21/20 Following Prescriptions Were Given to Patient: Levofloxacin [Levaquin] 750 mg PO DAILY 7 Days #7 tab Transmission Status: Received by [id number] Primary Care Physician: Shante Castro MD [Primary Care Provider] - Please follow up with your Primary Care Physician in: within 1-2 weeks Disposition: Home Minutes spent on discharge:: 40 Patient Condition:: Stable Medical Necessity - Tobacco Use Smoking Status: Former smoker Tobacco Use: Non-smoker Meaningful Use Info Meaningful Use Diagnoses (Choose all that apply): None applicable Inpatient E&M: 45195 Disch Hosp
[2020-06-21] MEDS: Pantoprazole Sodium 40 MG Tablet PO (08:21)
[2020-06-21] MEDS: Montelukast 10 MG Tablet PO (08:21)
[2020-06-21] MEDS: levoFLOXacin IV 750 MG/150 ML BAG 100 MG IV (10:44)
[2020-06-21] MEDS: 0.9% Saline Lock 10 ML Syringe IV ×2 (10:44→15:09)
[2020-06-21] MEDS: Enoxaparin 40 MG/0.4 ML Syringe SC (10:45)
--- NOTE | 2020-06-24 15:21 | CASEMGMT ---
AMANDA DYE Discharge Follow-up Phone Call: CHITRA: 11 Strata: 3 Call Date: 06/24/20 Discharge Date: 06/21/20 Time of Call: 1520 Duration: 1 min Admitting Diagnosis: Acute COPD exacerbation AMANDA DEY attempted to complete follow-up phone call after recent hospitalization. No answer, voice message left with return contact information.
== END 2020-06-21 16:27 | disposition home or self-care (01) | DRG 190 ==
LOC: ED 07:52 → PCU 08:24
PROVIDERS: Physician Assistant; Admitting Provider Internal Medicine; Emergency Provider Emergency Medicine; PCP Internal Medicine; Visit Provider Internal Medicine
DX: J44.0 Chronic obstructive pulmonary disease with (acute) lower respiratory infection (principal); J18.9 Pneumonia, unspecified organism; J44.1 Chronic obstructive pulmonary disease with (acute) exacerbation; K50.00 Crohn's disease of small intestine without complications; K86.1 Other chronic pancreatitis; R06.89 Other abnormalities of breathing; Z87.891 Personal history of nicotine dependence; E78.5 Hyperlipidemia, unspecified; Z68.34 Body mass index [BMI] 34.0-34.9, adult; E66.9 Obesity, unspecified
CPT/HCPCS: 36415; 71045; 80048; 80053; 80076; 83605; 83735; 84484; 85025; 87040; 87449; 87633; 87635; 93005; 94640; 94667; 94668; 94760; 97110; 97162; 97166; 97530; 97802; 99251; 99282; 99285; J7030; J7040; A4216; G0463; U0003

== ENCOUNTER 2020-07-13 12:41 | Inpatient (IN) | payer MEDICARE, SELFPAY ==
[2020-06-18 08:37] VITALS: BMI 34.4
[2020-07-13] VITALS (12 sets, daily range): BP systolic 130–185; BP diastolic 62–108; PULSE 99–114; RESP 18–33; TEMP 36.3–37.2; O2SAT 93–99; BMI 34.2; BMI 33.8
--- NOTE | 2020-07-13 12:42 | RAD_ITS ---
STUDY: X-RAY CHEST REASON FOR EXAM: Male, 65 years old. RESPIRATORY DISTRESS, AUDIBLE WHEEZING X 2-3 DAYS TECHNIQUE: Single AP portable view of the chest. COMPARISON: 06/18/20 FINDINGS: The lungs are clear and expanded. There is no demonstrated pleural abnormality. Normal size heart. Normal mediastinum and trae. Normal visualized pulmonary arteries. Normal visualized aortic arch and descending thoracic aorta. Normal visualized thoracic spine. Normal visualized ribs, clavicles, and shoulders. There is no demonstrated abnormality of the visualized soft tissue structures of the upper abdomen. RAD/Chest 1 View (Portable) IMPRESSION: Normal x-ray examination of the chest. Electronically Signed: Mark Alex DO at 14:23 EST Tel , Service support ,
--- NOTE | 2020-07-13 12:42 | EKG12_ITS ---
Test Reason : SOB Blood Pressure : / mmHG Vent. Rate : 112 BPM Atrial Rate : 112 BPM P-R Int : 166 ms QRS Dur : 100 ms QT Int : 350 ms P-R-T Axes : 073 069 060 degrees QTc Int : 477 ms Sinus tachycardia Incomplete right bundle branch block Nonspecific ST abnormality Abnormal ECG Confirmed by CESAR HOLLAND, WES ([id number]), editor trade journal WILLY FLANNERY ([id number]) on 07/14/2020 2:03:28 PM Referred By: MILDRED Confirmed By:WES GUERRERO MD
--- NOTE | 2020-07-13 12:52 | ED.VIS.GEN ---
History of Present Illness Chief Complaint: Shortness of Breath Informant: Patient Onset: Days Context: Sudden Onset Timing: Continuous Quality: Dyspnea, dyspnea on exertion, wheezing Location: Respiratory Current Severity: Moderate Maximum Severity: Severe Worsened by: Any activity Relieved by: Nothing Associated Symptoms: Nonproductive cough Narrative: Patient is a 65-year-old male with history of Crohn's disease status post resection of his small bowel due to obstruction and perforation many years ago. He reports history of COPD. States has been on oxygen past several weeks. He has not smoked for approximately 50 years. He denies fever, chills night sweats. He denies rhinorrhea, congestion postnasal drainage. Denies change in smell or taste. He denies sore throat. He denies change in voice. He denies chest discomfort. He denies increased orthopnea. He denies history of congestive heart failure. States his left lower extremity is normally swollen. He denies dysuria, frequency, urgency or hematuria. He denies exposure to COVID-19. His is not ill. He reports he was seen approximate 2 weeks ago and diagnosed with pneumonia. His Covid test at that time was negative. Prior similar symptoms: Yes Recent Illness/Hospitalization: Yes - Past Medical History (1) Acute on recurrent pancreatitis Status: Acute (2) Choledocholithiasis Status: Acute (3) Pneumonia Status: Acute (4) Subcapsular hematoma of liver Status: Acute (5) Crohn's disease of small intestine Status: Chronic (6) Dyslipidemia Status: Chronic (7) Gynecomazia Status: Chronic (8) History of appendectomy Status: Resolved (9) History of bowel resection Status: Resolved (10) History of cholecystectomy Status: Resolved Past Medical History - Allergies and Home Meds Allergies/Adverse Reactions: Allergies budesonide Allergy (Verified 07/13/20 12:52) Swelling Primary Care Physician: Shante Castro MD [Primary Care Provider] - Prior records reviewed: Yes Surgical History: appendectomy, cholecystectomy, herniorrhaphy, - - s/p bowel resection, s/p ERCP Lives: Spouse/ Significant Other Smoking Status: Never smoker Alcohol: None Drugs: None - Family History Maternal Family History: Reports: No pertinent history Paternal Family History: Reports: - - Father with a history of lung cancer and concurrent tobacco use. Review of Systems General: Reports: Malaise. Denies: Chills, Fever, Sweats Eyes: Denies: Visual changes - bilaterally, Blurred Vision - bilaterally ENT: Denies: Bilateral ear pain, Rhinorrhea, Sore throat Cardiovascular: Denies: Chest pain, Palpitations Respiratory: Reports: Dyspnea, Cough, Dyspnea on exertion, Orthopnea. Denies: Sputum, Paroxysmal nocturnal dyspnea Gastrointestinal: Denies: Abdominal pain, Nausea, Vomiting, Diarrhea, Melena, Hematochezia Genitourinary: Denies: Dysuria, Hematuria, Frequency Musculoskeletal: Denies: Myalgias, Arthralgias, Neck pain, Back pain, Swelling, Extremity Pain, -, - Skin: Denies: Rash, Wounds Neurological: Denies: Headache, Parasthesia, Numbness Endocrine: Denies: Polyuria, Polydipsia Hematologic: Denies: Easy bruising, Easy bleeding Physical Exam Vital Signs/Narrative: Vital Signs Temp Pulse Resp BP Pulse Ox 07/13/20 12:41 98.4 F 114 H 33 H 185/108 H 93 Inital Vital Signs reviewed: Yes General: Well nourished, Well developed, Obese, No Acute Distress Head: Normocephalic, Atraumatic Eyes: Perrl, EOMI. Negative for: Pale conjunctiva, Scleral icterus ENT: Moist mucous membranes, No rhinorrhea Neck: Supple, Nontender, No lymphadenopathy, No JVD, - - Is midline. He does not have inspiratory expiratory stridor. Cardiovascular: Regular rhythm, No murmurs, Normal S1, Tachycardia Respiratory: Wheezing, Diminished, Decreased Air Movement, - - There is use of accessory muscles question retractions. He does have paradoxical breathing. Abdomen: Soft, Nontender, Nondistended, Normal bowel sounds, No masses, - - Well-healed midline incision noted. Rectal: Deferred Back: Nontender, Normal Inspection Extremities: Nontender, Edema - Edema is pitting left greater than right Skin: Normal color, No rash, No Trauma. Negative for: Cyanosis, Diaphoresis, Jaundice Neurological: Alert, Oriented x3, Cranial nerves II-XII grossly intact, Normal Strength, Normal Sensation Diagnostic/Tx/Re-eval Chest X-Ray - ED: 1 View, Read by ED Physician, Normal, Heart, Lungs, Mediastinum, Bony Structures, No Acute Disease, - - Single view portable chest x-ray was interpreted by me at 1328. There is no acute abnormality. There is no infiltrate, effusion or evidence of pneumothorax. VBG reveals elevated CO2. This is concerning since he is tachypneic. He is not hypoxic on his 2 L of oxygen via nasal cannula. Patient has acute on chronic respiratory failure with mild hypercapnia and hypoxia. Impressions Chest X-Ray 07/13/20 12:42 IMPRESSION: Normal x-ray examination of the chest. Electronically Signed: Mark Alex at 14:23 EST Tel , Service support , Chest CT 07/13/20 13:56 IMPRESSION: Likely subtle COVID Electronically Signed: Mark Alex at 14:46 EST Tel , Service support , 07/13/20 12:42 Chest 1 View (Portable) [RAD] Stat 07/13/20 13:56 CT Chest [Chest without Contrast] [CT] Stat Laboratory Results 07/13/20 07/13/20 07/13/20 12:55 12:55 12:55 WBC 10.7 RBC 4.78 Hgb 15.0 Hct 45.1 MCV 94.4 H MCH 31.4 MCHC 33.3 RDW Std Deviation 45.6 H RDW Coeff of Zachary 13.2 Plt Count 303 MPV 9.0 Immature Gran % (Auto) 0.500 Neut % (Auto) 55.0 Lymph % (Auto) 23.1 [place] % (Auto) 9.3 Eos % (Auto) 11.4 H Baso % (Auto) 0.7 Absolute Neuts (auto) 5.9 Absolute Lymphs (auto) 2.47 Nucleated RBC % 0 PT 13.2 INR 1.1 APTT 33.0 Specimen Type Sample Site VBG pH VBG pO2 VBG HCO3 VBG Total CO2 VBG O2 Sat (Calc) VBG Base Excess POC Mix VBG pCO2 Pt Tmp O2 Delivery Device Liter Flow Sodium 139 Potassium 3.9 Chloride 105 Carbon Dioxide 28.0 Anion Gap 6 BUN 23 H Creatinine 0.97 Estim Creat Clear Calc 78.71 Est GFR (MDRD) Af Amer 99 Est GFR (MDRD) Non-Af 82 BUN/Creatinine Ratio 23.6 H Glucose 98 Lactic Acid Calcium 9.2 Total Bilirubin 1.00 AST 17 ALT 23 Alkaline Phosphatase 100 Total Protein 7.7 Albumin 3.4 Globulin 4.3 H Albumin/Globulin Ratio 0.8 L 07/13/20 07/13/20 12:55 13:06 WBC RBC Hgb Hct MCV MCH MCHC RDW Std Deviation RDW Coeff of Zachary Plt Count MPV Immature Gran % (Auto) Neut % (Auto) Lymph % (Auto) [place] % (Auto) Eos % (Auto) Baso % (Auto) Absolute Neuts (auto) Absolute Lymphs (auto) Nucleated RBC % PT INR APTT Specimen Type JERICA Sample Site L Brach VBG pH 7.37 VBG pO2 62 H VBG HCO3 27 H VBG Total CO2 28 VBG O2 Sat (Calc) 90 H VBG Base Excess 1 POC Mix VBG pCO2 Pt Tmp 46.3 O2 Delivery Device Cannula Liter Flow 2.0 Sodium Potassium Chloride Carbon Dioxide Anion Gap BUN Creatinine Estim Creat Clear Calc Est GFR (MDRD) Af Amer Est GFR (MDRD) Non-Af BUN/Creatinine Ratio Glucose Lactic Acid 1.6 Calcium Total Bilirubin AST ALT Alkaline Phosphatase Total Protein Albumin Globulin Albumin/Globulin Ratio - EKG Initial EKG Interpretation: Sinus Tachycardia - Sinus tachycardia with a ventricular rate of 112. DE interval is under 6 6 ms. QRS is 100 ms and represents an incomplete right bundle branch block. QT interval is 350 ms. There is nonspecific changes which in my opinion is artifact due to his respiratory distress. [place] is normal. - Medical Decision Making Presents in respiratory distress. This may be exacerbation of his COPD, pneumonia, COVID-19 infection. If patient does not improve need to entertain possibility of pulmonary embolus. He was treated with DuoNeb, albuterol, Solu-Medrol. Sepsis order set was initiated. Will review prior records. Patient was reassessed at 1350. He is still tachycardic and tachypneic with audible wheezing. He has improved. He was informed of his laboratory results and chest x-ray. He was informed that his Covid test is pending. Since patient still has audible wheezing with use of accessory muscles will contact hospitalist for admission for exacerbation of COPD. Since he reports cough with clear to white-colored sputum will treat with doxycycline Spoke with Dr. Radu Orta, hospitalist, he asked if I would order a respiratory panel, which was done. CT was obtained to assess for pneumonia since he is hypoxic with a clear chest x-ray. Symptoms are consistent with infectious process not pulmonary embolus. He also received additional albuterol treatments since he is still wheezing with respiratory distress. - Critical Care Time Critical care time (excluding procedures): 30-74 minutes - 33 minutes, Discussing w/Patient &/or Family/Industrial Eng, Discussing w/Consultants, Arranging Admission or Transfer, - - Also included obtaining history, physical exam, review of prior records, documentation, interpretation of laboratory results, reevaluation and additional treatment ED Disposition - Plan for ED Patient: Disposition: Acute Care [facility] Diagnosis: Acute exacerbation of chronic obstructive pulmonary disease (COPD), Acute and chronic respiratory failure with hypercapnia, Acute bronchospasm, Bilateral interstitial pneumonia, Suspect Covid pneumonia Referrals: Shante Castro MD [Primary Care Provider] -
[2020-07-13] MEDS: Albuterol 2.5 MG/3 ML VIAL.NEB. INHALATION ×6 (12:54→14:33)
[2020-07-13] MEDS: Ipratropium/Albuterol Sulfate 3 ML AMPUL.NEB INHALATION (12:54)
[2020-07-13] MEDS: 0.9% Normal Saline 1,000 ML 150 ML IV (12:58)
[2020-07-13] MEDS: MethylPREDNISolone 125 MG/2 ML Vial IV (12:58)
[2020-07-13 13:06] LABS: Absolute Lymphocyte Count 2.47 X10^3/uL (0.83-4.51); Absolute Neutrophil Count 5.9 X10^3/uL (2.0-7.7); Basophil# 0.08 X10^3/uL; Basophil% 0.7 % (0-1); Eosinophil# 1.22 X10^3/uL; Eosinophils% 11.4 % (0-5); Hematocrit 45.1 % (40-54); Lymphocyte # 2.47 X10^3/ul (4.0); Lymphocyte % 23.1 % (19-41); Mean Corp Hgb Conc 33.3 g/dL (32-36); Mean Corpuscular Hgb 31.4 pg (27.0-32.0); Mean Corpuscular Volume 94.4 fL (80-94); Monocyte% 9.3 % (0-10); NRBC Flagged by Analyzer 0 % (0-5); Neutrophil # 5.89 X10^3/uL (2.7-7.7); Platelet Count 303 K/mm3 (150-450); RBC Distribution Width CV 13.2 % (11.6-14.6); RBC Distribution Width SD 45.6 fl (35.1-43.9); Red Blood Count 4.78 M/mm3 (4.6-6.2); White Blood Count 10.7 K/mm3 (4.4-11.0)
[2020-07-13 13:11] LABS: Blood Gas Specimen Type VEN; O2 Delivery Device Cannula; SITE L Brach; VBG BASE EXCESS 1 mmol/L (-1.0-3.5); VBG Bicarbonate 27 mmol/L (22-26); VBG PO2 62 mmHg (25-40); VBG SO2 90 % (50-70); VBG TCO2 28 mmol/L (23-33); VBG pCO2 46.3 mmHg (41-51); VBG pH 7.37 (7.32-7.42)
[2020-07-13 13:11] LABS: International Normalized Ratio 1.1; Prothrombin Time (Protime)PT. 13.2 SECONDS (11.7-14.9)
[2020-07-13 13:21] LABS: ALB/GLOB Ratio 0.8 RATIO (0.9-2.4); AST(SGOT) 17 U/L (15-37); Alanine Aminotransfer ALT/SGPT 23 U/L (16-61); Albumin, Serum 3.4 g/dL (3.2-5.0); Alkaline Phosphatase 100 U/L (45-117); Anion Gap 6 (5-15); BUN 23 mg/dL (7-18); BUN/Creat Ratio 23.6 RATIO (10-20); Calcium,Total 9.2 mg/dL (8.5-10.1); Chloride 105 mmol/L (98-107); Creatinine, Serum 0.97 mg/dL (0.70-1.30); EST Glomerular Filtration Rate 82 mL/min (>60); Est Glom Filt Rate - Afr Amer 99 mL/min (>60); Estimated Creatinine Clearance 78.71 ml/min; Globulin 4.3 g/dL (2.2-4.2); Glucose 98 mg/dL (74-106); Potassium 3.9 mmol/L (3.5-5.1); Protein, Total 7.7 g/dL (6.4-8.2); Sodium Level 139 mmol/L (136-145)
[2020-07-13 13:27] LABS: Lactic Acid 1.6 mmol/L (0.4-1.9)
--- NOTE | 2020-07-13 13:56 | CT_ITS ---
STUDY: CT CHEST WITHOUT CONTRAST REASON FOR EXAM: Male, 65 years old. PNEUMONIA RADIATION DOSAGE (If Supplied By Facility): CTDIvol = ( 17.23 ) mGy, DLP = ( 602.94 ) mGycm TECHNIQUE: Transaxial imaging was performed without the administration of intravenous contrast material. Individualized dose optimization techniques were used for this CT. COMPARISON: None. FINDINGS: Subtle patchy groundglass airspace disease in the right upper lobe, right middle lobe and left lower lobe. Likely COVID. No consolidation or effusion, There is no demonstrated pleural abnormality. Normal heart and pericardium. Normal mediastinum. Normal hilar regions. Normal unenhanced pulmonary arteries. Normal aorta arch and descending thoracic aorta. Normal osseous structures. There is no demonstrated abnormality of the visualized upper abdomen. CT/Chest without Contrast IMPRESSION: Likely subtle COVID Electronically Signed: Mark Alex DO at 14:46 EST Tel , Service support ,
--- NOTE | 2020-07-13 14:07 | NURSING ---
DR MOHAMUD FOR DR RUBIN
[2020-07-13] MEDS: Doxycycline 100 MG CAPSULE PO (14:09)
--- NOTE | 2020-07-13 14:55 | NURSING ---
DR MOHAMUD FOR DR JO
--- NOTE | 2020-07-13 14:56 | NURSING ---
MS2 COVID ADAM MELISSA PNEUMONIA, SUSPECT COVID, SEPSIS,
--- NOTE | 2020-07-13 15:35 | HP.PCM_ITS ---
Problem List (1) Pneumonia Status: Resolved Qualifiers: Pneumonia type: due to unspecified organism Laterality: right Lung location: lower lobe of lung Qualified Code(s): J18.9 - Pneumonia, unspecified organism (2) COPD exacerbation Status: Acute (3) Acute and chronic respiratory failure with hypercapnia Status: Acute (4) Acute bronchospasm Status: Acute (5) Bilateral interstitial pneumonia Status: Acute (6) Cough Status: Acute (7) Shortness of breath Status: Chronic (8) History of ERCP Status: Resolved Comment: 06/19/2018 (9) Subcapsular hematoma of liver Status: Resolved (10) Choledocholithiasis Status: Resolved (11) Transaminitis Status: Resolved (12) Obstructive jaundice Status: Resolved (13) Idiopathic pancreatitis Status: Resolved Qualifiers: (14) Acute on recurrent pancreatitis Status: Resolved (15) CAP (community acquired pneumonia) Status: Resolved Qualifiers: (16) Gynecomazia Status: Chronic (17) Abdominal hernia Status: Resolved (18) History of bowel resection Status: Resolved (19) History of cholecystectomy Status: Resolved (20) History of appendectomy Status: Resolved (21) Acute bronchitis Status: Resolved Qualifiers: Bronchitis organism: unspecified organism Qualified Code(s): J20.9 - Acute bronchitis, unspecified (22) Chronic pancreatitis Status: Chronic Qualifiers: Pancreatitis type: unspecified pancreatitis type (23) Crohn's disease of small intestine Status: Chronic Qualifiers: Digestive disease complication type: unspecified complication (24) Dyslipidemia Status: Chronic History of Present Illness Date of Admission: 07/13/20 Mr Sanchez is a 65 year old WM who presented to the ED on 07/13/2020 with SOB that started about 2-3 days prior to admission. He has O2 at 2 L that he wears nocturnally and prn during the day but states that most days he does not require it dureing the day. Over the last few days he has had increased SOB and has been wearing O2 around the clock. He denies any known sick contacts but was recently treated for a PNA here in the middle of June and was admitted for 4 days on Levaquin. CXR at that time showed RLL infiltrate. He states that he has had no fever or chills, no nasal congestion or drainage, no pharyngitis, no nausea/vomiting/diarrhea, no myalgias or CP, but does report fatigue. His VS show tachycardia (mild), HTN and his sat is 96% on RA. He is very wheezy on exam diffusely. He has no white count, VBG is unimpressive, LFT are WNL and his CMP is fairly normal. COVID [address] chest without contrast was done and showed Subtle patchy groundglass airspace disease in the right upper lobe, right middle lobe and left lower lobe abd was called likely COVID. Past Medical History Past Medical History (Chronic Problems): Chronic Problems (Last Reviewed 07/13/20 @ 16:[address] Adele Keller, DO) Shortness of breath (Chronic) Gynecomazia (Chronic) Chronic pancreatitis (Chronic) Crohn's disease of small intestine (Chronic) Dyslipidemia (Chronic) Medical History: Medical History (Last Reviewed 07/13/20 @ 16:[address] Adele Keller, ) Gynecomazia (Chronic) N62 Chronic pancreatitis (Chronic) K86.1 Crohn's disease of small intestine (Chronic) K50.00 Dyslipidemia (Chronic) E78.5 Acute bronchitis (Resolved) J20.9 Allergies budesonide Allergy (Verified 07/13/20 12:52) Swelling Home Medications: Ambulatory Orders Medication Instructions Recorded Adalimumab [Humira] 40 mg SQ Q14D 01/10/14 Omeprazole [Prilosec] 40 mg PO DAILY 01/10/14 Cholestyramine (with Sugar) 1 dose PO QHS 12/16/17 [Cholestyramine Powder] lipase/protease/amylase [Maira ROSARIO 3 cap PO TIDCM 06/21/18 12,000 Unit Capsule] albuterol sulfate 90 mcg/actuation 2 puff INHALATION Q6H PRN #1 device 05/15/19 aerosol inhaler azelastine 137 mcg (0.1 %) nasal 1 spray INTRANASAL Q12H #30 ml 05/15/19 spray aerosol Ondansetron [Zofran Odt] 4 mg PO Q12H PRN PRN 09/06/19 Fluticasone Propionate 1 spray INHALATION DAILY 06/18/20 Ipratropium [place] 0.2 mg IH Q6H PRN PRN 06/18/20 Montelukast [Singulair] 10 mg PO DAILY 06/18/20 Surgical History: Surgical History (Last Reviewed 05/15/19 @ 11:14 by Soraida Victoria) History of ERCP (Acute) Z98.890 06/19/2018 Abdominal hernia (Resolved) K46.9 History of bowel resection (Resolved) Z98.890, Z90.49 History of cholecystectomy (Resolved) Z90.49 History of appendectomy (Resolved) Z90.49 Surgical History: appendectomy, cholecystectomy, herniorrhaphy, - - s/p bowel resection, s/p ERCP Psychiatric History: No pertinent psych hx Lives: Spouse/ Significant Other Smoking Status: Never smoker Alcohol: None Drugs: None - *Family History Maternal History Items: No pertinent history Paternal History Items: - - Father with a history of lung cancer and concurrent tobacco use. Review of Systems Constitutional: Reports: Fatigue. Denies: Anorexia, Chills, Fever, Night Sweats, Malaise, Weakness, Weight Change Eyes: Denies: Cataracts, Conjunctivae Inflammation, Double vision, Drainage HEENT: Reports: Hard of Hearing. Denies: Difficulty Hearing, Difficulty Swallowing, Dysphasia, Ear Pain, Eye Pain, Head Aches, Hearing Changes, Nasal bleeding, Nasal Congestion, Post Nasal Drip, Sinus Congestion, Sinus Drainage, Sore Throat, Visual Changes Cardiovascular: Denies: Chest Pain, Claudication, Chest Pressure, Chest Tightness, Edema, Heaviness, Light Headedness, Orthopnea, Palpitations, Paroxysmal Noc. Dyspnea, Syncope Respiratory: Reports: Cough, Shortness of Breath, Shortness of breath at rest, Shortness of breath upon exertion, Wheezing. Denies: Hemoptysis, Pleuritic Pain, Sputum production Gastrointestinal: Denies: Abdominal Pain, Constipation, Diarrhea, Dyspepsia, Hematemesis, Hematochezia, Nausea, Melena, Vomiting Genitourinary: Denies: Dysuria, Frequency, Incontinence, Nocturia, Retention, Urgency Musculoskeletal: Denies: Back Pain, Joint Pain, Joint stiffness, Joint swelling, Joint Tenderness, Muscle pain, Neck Pain Skin: Denies: Dryness, Jaundice, Lesions, Pruritis, Rash, Skin Changes, Wounds Neurological: Denies: Balance problems, Blurred vision, Double vision, Change in Speech, Slurred speech, Confusion, Difficulty swallowing, Focal weakness, Headaches, Incoordination, Numbness, Tingling, Tremor, Seizures Psychiatric: Denies: Anxiety, Depression Endocrine: Denies: Change in Body Habitus, Heat/ Cold Intolerance, Polydipsia, Polyuria Hematologic/ Lymphatic: Denies: Adenopathy, Anemia, Easy Bruising, Easy Bleeding, Petechiae, Purpura VTE Information - Inpt Only VTE Present on Admission: No VTE Mechan Device Prophylaxis: SCD's, None VTE Pharm Prophylaxis ordered?: Yes Patient Problems: Active and Suspected Problems (Last Reviewed 07/13/20 @ 16:[address] Adele Keller, DO) COPD exacerbation (Acute) Acute and chronic respiratory failure with hypercapnia (Acute) Acute bronchospasm (Acute) Bilateral interstitial pneumonia (Acute) Cough (Acute) - Physical Exam Vitals/I&O's: Vital Signs Temp Pulse Resp BP Pulse Ox 97.9 F 112 H 20 H 139/96 H 95 07/13/20 14:59 07/13/20 14:59 07/13/20 14:59 07/13/20 14:59 07/13/20 14:59 Oxygen Flow Rate (L/min) 2 Oxygen Delivery Method Nasal Cannula Weight: 111.2 kg Body Mass Index (BMI) 34.2 General: Alert, Oriented x3, Cooperative, No apparent distress, Well developed, Well nourished, - - Older WM lying in bed, appears non-toxic HEENT: Atraumatic, PERRLA, EOMI, Normocephalic, EAC Clear Oral: Moist Mucosa, No Gingival or Mucosal Lesions/ Ulcerations Neck: Supple, No JVD, Negative Carotid Bruits, Negative Hepatojugular Reflux, No Nodes, Trachea Midline, Thyroid Normal Size and Texture Lungs: No rhonchi, No rales, Wheezes - course Cardiovascular: Regular rate, Regular Rhythm, Normal S1, Normal S2, No murmurs, No Ectopic Activity, No rub noted, No Gallop Abdomen: Bowel Sounds Present, Soft, Non Tender, Non-Distended, No Hepato- splenomegaly, No hernias noted Extremities: No clubbing, No cyanosis, No edema, Capillary Refill Less than 3 Seconds, Peripheral Pulses Normal Skin: No rashes, No breakdown Musculoskeletal: No Tenderness to Palpation of Joints or Extremities, No Muscle Wasting Lymphatic: No Cervical, Supraclavicular, or Inguinal Adenopathy Neurological: Cranial nerves II-XII grossly intact, Deep Tendon Reflexes 2+/4 and Symmetrical, Neuro grossly intact, Motor Exam 5/5 strength throughout, Muscle tone normal, Sensory exam intact to light touch and pain, Coordination normal Psych/Mental Status: Normal Affect, Appropriate, Alert and oriented to time, place, person, mood and affect Laboratory Results 07/13/20 12:55: WBC 10.7, RBC 4.78, Hgb 15.0, Hct 45.1, MCV 94.4 H, MCH 31.4, MCHC 33.3, RDW Std Deviation 45.6 H, RDW Coeff of Zachary 13.2, Plt Count 303, MPV 9.0, Immature Gran % (Auto) 0.500, Neut % (Auto) 55.0, Lymph % (Auto) 23.1, [place] % (Auto) 9.3, Eos % (Auto) 11.4 H, Baso % (Auto) 0.7, Absolute Neuts (auto) 5.9, Absolute Lymphs (auto) 2.47, Nucleated RBC % 0 07/13/20 12:55: PT 13.2, INR 1.1, APTT 33.0 07/13/20 12:55: Sodium 139, Potassium 3.9, Chloride 105, Carbon Dioxide 28.0, Anion Gap 6, BUN 23 H, Creatinine 0.97, Estim Creat Clear Calc 78.71, Est GFR (MDRD) Af Amer 99, Est GFR (MDRD) Non-Af 82, BUN/Creatinine Ratio 23.6 H, Glucose 98, Calcium 9.2, Total Bilirubin 1.00, AST 17, ALT 23, Alkaline Phos phatase 100, Total Protein 7.7, Albumin 3.4, Globulin 4.3 H, Albumin/Globulin Ratio 0.8 L 07/13/20 12:55: Lactic Acid 1.6 07/13/20 12:55: COVID-19 (TONY) Pending 07/13/20 13:06: Specimen Type JERICA, Sample Site L Brach, VBG pH 7.37, VBG pO2 62 H, VBG HCO3 27 H, VBG Total CO2 28, VBG O2 Sat (Calc) 90 H, VBG Base Excess 1, POC Mix VBG pCO2 Pt Tmp 46.3, O2 Delivery Device Cannula, Liter Flow 2.0 Current Medications Sodium Chloride () 1,000 mls @ 150 mls/hr IV .Q6H40M ASHISH Last Admin: 07/13/20 12:58 Dose: 150 mls/hr Documented by: Assessment/Plan All Active Problems (Last Reviewed 07/13/20 @ 16:[address] Adele Keller, DO) COPD exacerbation (Acute) Acute and chronic respiratory failure with hypercapnia (Acute) Acute bronchospasm (Acute) Bilateral interstitial pneumonia (Acute) Cough (Acute) Abdominal hernia (Resolved) Acute bronchitis (Resolved) Acute on recurrent pancreatitis (Resolved) CAP (community acquired pneumonia) (Resolved) Choledocholithiasis (Resolved) History of ERCP (Resolved) History of appendectomy (Resolved) History of bowel resection (Resolved) History of cholecystectomy (Resolved) Idiopathic pancreatitis (Resolved) Obstructive jaundice (Resolved) Pneumonia (Resolved) Subcapsular hematoma of liver (Resolved) Transaminitis (Resolved) Acute Hypoxic Respiratory Failure 2/2 Suspected Viral PNA -CT done and read as c/w COVID-19 -rapid COVID-19 -Viral PCR pending -decadron and if PCR + and COVID neg will switch to solumedrol and prednisone -sats stable on 2 L at this time but pt is very wheezy and tachypneic -Nebs scheduled and PRN -check COVID associated lab -Consult ID for COVID if +--> has only had sx for 2-3 days so suspect would qualify for remdesivir at the very least -if worsens will consult Pulm Tachycardia -suspect related to resp issue and aerosols -monitor Crohn's Disease -hold Humira for now -decadron at this time Pancreatic Insufficiency -continue creon and cholestyramine COPD -mild on PFT's per pulm note from -hold inhalers for now -consider pulm consult if worsens -wears nocturnal O2 at baseline 2 L Allergic Rhinitis -continue nasal spray GERD PPI Overweight -recommend wgt loss DVT Prophylaxis -Lovenox 40 mg BID for now if COVID neg will switch to daily Code status -Full Inpatient E&M: 97433 Init Hosp L3
[2020-07-13 16:38] LABS: LDH 165 U/L (87-241)
[2020-07-13] MEDS: Lactated Ringers 1,000 ML 70 ML IV (17:00)
[2020-07-13 17:05] LABS: Fibrinogen 621 mg/dl (203-444)
[2020-07-13] MEDS: Azelastine HCl NASAL.SRY 1 SPRAY NASAL (17:59)
[2020-07-13] MEDS: Albuterol Sulfate 8 gm Inhaler (60 puffs) 2 PUFF INHALATION (21:13)
[2020-07-13] MEDS: Enoxaparin 40 MG/0.4 ML Syringe SC (21:30)
[2020-07-13] MEDS: Cholestyramine/Sucrose 4 GM/PACKET 1 GM PO (21:31)
[2020-07-14] VITALS (9 sets, daily range): BP systolic 123–149; BP diastolic 70–75; PULSE 77–93; RESP 18; TEMP 35.8–36.9; O2SAT 96–99
[2020-07-14 06:17] LABS: Absolute Lymphocyte Count 1.12 X10^3/uL (0.83-4.51); Absolute Neutrophil Count 9.2 X10^3/uL (2.0-7.7); Basophil# 0.01 X10^3/uL; Basophil% 0.1 % (0-1); Hematocrit 43.1 % (40-54); Lymphocyte # 1.12 X10^3/ul (4.0); Lymphocyte % 10.5 % (19-41); Mean Corp Hgb Conc 32.5 g/dL (32-36); Mean Corpuscular Hgb 30.8 pg (27.0-32.0); Mean Corpuscular Volume 94.9 fL (80-94); Mean Platelet Vol. 9.3 fl (6.2-12.0); Monocyte# 0.32 X10^3/uL; NRBC Flagged by Analyzer 0 % (0-5); Neutrophil # 9.18 X10^3/uL (2.7-7.7); Neutrophil % 85.7 % (47-70); Platelet Count 283 K/mm3 (150-450); RBC Distribution Width SD 45.7 fl (35.1-43.9); Red Blood Count 4.54 M/mm3 (4.6-6.2); White Blood Count 10.7 K/mm3 (4.4-11.0)
[2020-07-14 06:47] LABS: ALB/GLOB Ratio 0.9 RATIO (0.9-2.4); AST(SGOT) 19 U/L (15-37); Alanine Aminotransfer ALT/SGPT 23 U/L (16-61); Albumin, Serum 3.1 g/dL (3.2-5.0); Alkaline Phosphatase 88 U/L (45-117); Anion Gap 9 (5-15); BUN 17 mg/dL (7-18); BUN/Creat Ratio 21.5 RATIO (10-20); Calcium,Total 8.8 mg/dL (8.5-10.1); Chloride 105 mmol/L (98-107); Creatinine, Serum 0.79 mg/dL (0.70-1.30); EST Glomerular Filtration Rate 104 mL/min (>60); Est Glom Filt Rate - Afr Amer 126 mL/min (>60); Estimated Creatinine Clearance 76.35 ml/min; Globulin 3.5 g/dL (2.2-4.2); Glucose 124 mg/dL (74-106); Magnesium 2.2 mg/dL (1.6-2.6); Phosphorus 2.7 mg/dL (2.5-4.9); Potassium 4.4 mmol/L (3.5-5.1); Protein, Total 6.6 g/dL (6.4-8.2); Sodium Level 139 mmol/L (136-145); Thyroid Stim Hormone (TSH) 0.33 uIU/mL (0.358-3.74)
[2020-07-14] MEDS: dexAMETHasone 4 MG Tablet 6 MG PO (08:23)
[2020-07-14] MEDS: Montelukast 10 MG Tablet PO (08:23)
[2020-07-14] MEDS: Pantoprazole Sodium 40 MG Tablet PO (08:23)
[2020-07-14] MEDS: Enoxaparin 40 MG/0.4 ML Syringe SC ×2 (08:23→21:33)
[2020-07-14] MEDS: Azelastine HCl NASAL.SRY 1 SPRAY NASAL ×2 (08:23→16:52)
--- NOTE | 2020-07-14 13:48 | CHAPLAIN ---
Type of Pastoral Visit ___ Initial Visit ___ Follow-up Visit ___ On-call Visit ___ General Patient Visit ___ Spiritual Assessment ___ Family Conference ___ Bereavement ___ Rapid Response ___ Code Blue _x__ Other (describe below) Pastoral Care Referral From ___ Patient ___ Family _x__ Nurse ___ Physician ___ Visual Education Director ___ Model And Mold Maker ___ Other (describe below) Sacrament/Intervention _x__ Active listening ___ Anointing ___ Evangelical ___ Bereavement ___ Communion ___ Kiley exploration ___ ___ Life review _x__ Prayer ___ Reconciliation ___ Sacrament of Sick ___ Supportive presence ___ Wedding ___ Other (describe below) Pastoral Comments patient welcomed the phone call to his room by this digital director; 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
--- NOTE | 2020-07-14 15:58 | CASEMGMT ---
AMANDA CM Readmission Note Previous Admission: 06/18/20-06/21/20 Diagnosis: COPD exacerbation, pneumonia DC Disposition: Home Current admission: pneumonia, CHF exacerbation, covid negative The patient presented with shortness of breath x 2-3 days. Pt was wearing O2 2L @ night and prn and past few days needed oxygen continuous. Pt is on Decadron, Lovenox. Chest CT showed likely subtle COVID. Sheyla LEZAMA RN ACM
--- NOTE | 2020-07-14 16:46 | DS.PCM_ITS ---
Discharge Date and Diagnosis - Problem List Patient Problems: Active and Suspected Problems (Last Reviewed 07/13/20 @ 16:[address] Adele Keller DO) COPD exacerbation (Acute) Acute and chronic respiratory failure with hypercapnia (Acute) Acute bronchospasm (Acute) Bilateral interstitial pneumonia (Acute) Cough (Acute) Date of Admission: 07/13/20 - Primary Discharge Diagnosis Acute Problems: Active Problems (Last Reviewed 07/13/20 @ 16:[address] Adele Keller DO) COPD exacerbation (Acute) Acute and chronic respiratory failure with hypercapnia (Acute) Acute bronchospasm (Acute) Bilateral interstitial pneumonia (Acute) Cough (Acute) - Secondary Discharge Diagnosis Chronic Problems: Chronic Problems (Last Reviewed 07/13/20 @ 16:[address] Adele Keller DO) Shortness of breath (Chronic) Gynecomazia (Chronic) Chronic pancreatitis (Chronic) Crohn's disease of small intestine (Chronic) Dyslipidemia (Chronic) Hospital Course and Treatment Imaging Results: STUDY: CT CHEST WITHOUT CONTRAST REASON FOR EXAM: Male, 65 years old. PNEUMONIA RADIATION DOSAGE (If Supplied By Facility): CTDIvol = ( 17.23 ) mGy, DLP = ( 602.94 ) mGycm TECHNIQUE: Transaxial imaging was performed without the administration of intravenous contrast material. Individualized dose optimization techniques were used for this CT. COMPARISON: None. FINDINGS: Subtle patchy groundglass airspace disease in the right upper lobe, right middle lobe and left lower lobe. Likely COVID. No consolidation or effusion, There is no demonstrated pleural abnormality. Normal heart and pericardium. Normal mediastinum. Normal hilar regions. Normal unenhanced pulmonary arteries. Normal aorta arch and descending thoracic aorta. Normal osseous structures. There is no demonstrated abnormality of the visualized upper abdomen. CT/Chest without Contrast IMPRESSION: Likely subtle COVID ID Operations: None, ERCP, - Summary of Care Provided: Mr Sanchez is a 65 year old WM who presented to the ED on 07/13/2020 with SOB that started about 2-3 days prior to admission. He has O2 at 2 L that he wears nocturnally and prn during the day but stated that most days he does not require it during the day. Over the past few days prior to admission he has had increased SOB and has been wearing O2 around the clock. He denies any known sick contacts but was recently treated for a PNA here in the middle of June and was admitted for 4 days and discharged on Levaquin which was completed. his CXR at that time showed RLL infiltrate. He stated that he has had no fever or chills, no nasal congestion or drainage, no pharyngitis, no nausea/vom iting/diarrhea, no myalgias or CP, but does report fatigue. His VS show tachycardia (mild), HTN and his sat is 96% on RA. He is very wheezy on exam diffusely. He has no white count, VBG is unimpressive, LFT are WNL and his CMP is fairly normal. COVID [address] chest without contrast was done and showed Subtle patchy ground glass airspace disease in the right upper lobe, right middle lobe and left lower lobe abd was called likely COVID. He has since had 2 neg COVID tests and is feeling much better with his wheezing almost resolved. Per d/w ID and I agree this is most likely not COVID given all the data and the pt is on RA and feels much better. We will discharge him on RA and a prednisone taper with recommendations to f/u with his PCP in 1 week and Pulm in 2-4 weeks Discharge time > 31' Patient Problems: Active and Suspected Problems (Last Reviewed 07/13/20 @ 16:[address] Adele Keller, DO) COPD exacerbation (Acute) Acute and chronic respiratory failure with hypercapnia (Acute) Acute bronchospasm (Acute) Bilateral interstitial pneumonia (Acute) Cough (Acute) - Physical Exam Vitals/I&O's: Vital Signs Temp Pulse Resp BP Pulse Ox 96.4 F L 92 18 136/71 H 96 07/14/20 08:32 07/14/20 09:59 07/14/20 08:32 07/14/20 08:32 07/14/20 08:32 Oxygen Flow Rate (L/min) 3 Oxygen Delivery Method Room Air Weight: 110 kg Body Mass Index (BMI) 33.8 Intake and Output for Last 24 Hours 07/12/20 07/13/20 07/14/20 23:59 23:59 23:59 Intake Total 605 / 605 1000 / 1000 Output Total 250 / 250 Balance 605 / 605 750 / 750 General: Alert, Oriented x3, Cooperative, No apparent distress, Well developed, Well nourished HEENT: Atraumatic, PERRLA, EOMI, Normocephalic Oral: Moist Mucosa, - - no thrush Neck: Supple Lungs: Clear to auscultation, Normal air movement, No rhonchi, No rales, Wheezes - mild but much improved Cardiovascular: Regular rate, Regular Rhythm, Normal S1, Normal S2, No murmurs, No Ectopic Activity, No rub noted, No Gallop Abdomen: Bowel Sounds Present, Soft, Non Tender, Non-Distended, Obese Extremities: No clubbing, No cyanosis, No edema, Capillary Refill Less than 3 Seconds, Peripheral Pulses Normal Skin: No rashes, No breakdown Musculoskeletal: No Tenderness to Palpation of Joints or Extremities, No Muscle Wasting Neurological: Cranial nerves II-XII grossly intact, Neuro grossly intact Psych/Mental Status: Normal Affect, Appropriate Microbiology Past 72 Hours 07/14/20 13:35 Mucosa - Nose SARS-CoV-2 Antigen (Rapid) - Final 07/13/20 12:55 Mucosa - Nose Respiratory Panel (PCR) - Final Laboratory Results 07/13/20 12:55: COVID-19 (TONY) Not Detected 07/13/20 12:55: Fibrinogen 621 H, D-Dimer Quant (PE/DVT) 0.50 H 07/14/20 05:22: WBC 10.7, RBC 4.54 L, Hgb 14.0, Hct 43.1, MCV 94.9 H, MCH 30.8, MCHC 32.5, RDW Std Deviation 45.7 H, RDW Coeff of Zachary 13.0, Plt Count 283, MPV 9.3, Immature Gran % (Auto) 0.700, Neut % (Auto) 85.7 H, Lymph % (Auto) 10.5 L, [place] % (Auto) 3.0, Eos % (Auto) 0.0, Baso % (Auto) 0.1, Absolute Neuts (auto) 9.2 H, Absolute Lymphs (auto) 1.12, Nucleated RBC % 0 07/14/20 05:22: Sodium 139, Potassium 4.4, Chloride 105, Carbon Dioxide 25.0, Anion Gap 9, BUN 17, Creatinine 0.79, Estim Creat Clear Calc 76.35, Est GFR (MDRD) Af Amer 126, Est GFR (MDRD) Non-Af 104, BUN/Creatinine Ratio 21.5 H, Glucose 124 H, Calcium 8.8, Phosphorus 2.7, Magnesium 2.2, Total Bilirubin 0.60, AST 19, ALT 23, Alkaline Phosphatase 88, Total Protein 6.6, Albumin 3.1 L, Globulin 3.5, Albumin/Globulin Ratio 0.9, TSH 0.33 L Current Medications Acetaminophen (Acetaminophen 325 Mg Tablet) 650 mg PO Q6H PRN PRN PRN Reason: Pain Score 1-10/Temp > 100.7 F Al Hydroxide/Mg Hydroxide (Mag Hydrox/Al Hydrox/Simeth 30 Ml Udc) 30 ml PO Q6H PRN PRN PRN Reason: Gastric Burning Albuterol Sulfate (Albuterol Sulfate 8 Gm Inhaler (60 Puffs)) 2 puff INHALATION Q4H PRN PRN PRN Reason: Shortness of Breath/Wheezing Last Admin: 07/13/20 21:13 Dose: 2 puff Documented by: Azelastine HCl (Azelastine Hcl Nasal.Sry) 1 spray NASAL BID@1000,1700 [facility] Last Admin: 07/14/20 08:23 Dose: 1 spray Documented by: Cholestyramine Resin (Cholestyramine/Sucrose 4 Gm/Packet) 1 gm PO QHS [facility] Last Admin: 07/13/20 21:31 Dose: 1 gm Documented by: Dexamethasone (Dexamethasone 4 Mg Tablet) 6 mg PO DAILY [facility] Last Admin: 07/14/20 08:23 Dose: 6 mg Documented by: Docusate Sodium (Docusate Sodium 100 Mg Capsule) 100 mg PO BID PRN PRN PRN Reason: Constipation Enoxaparin Sodium (Enoxaparin 40 Mg/0.4 Ml Syringe) 40 mg SC BID [facility] Last Admin: 07/14/20 08:23 Dose: 40 mg Documented by: Sodium Chloride () 250 mls @ 15 mls/hr IV .[id number] PRN PRN Reason: Saline Flush Sodium Chloride () 250 mls @ 15 mls/hr IV .[id number] PRN PRN Reason: Additional IVPB Infusion Melatonin (Melatonin 3 Mg Tablet) 3 mg PO QHS PRN PRN PRN Reason: INSOMNIA Montelukast Sodium (Montelukast 10 Mg Tablet) 10 mg PO DAILY [facility] Last Admin: 07/14/20 08:23 Dose: 10 mg Documented by: Ondansetron HCl (Ondansetron 4 Mg/2 Ml Vial) 4 mg IV Q8H PRN PRN PRN Reason: NAUSEA/VOMITING Pancrelipase (Creon 12,[address] Capsule) 3 capsule PO TIDCM [facility] Last Admin: 07/14/20 12:12 Dose: 3 capsule Documented by: Pantoprazole Sodium (Pantoprazole Sodium 40 Mg Tablet) 40 mg PO DAILY [facility] Last Admin: 07/14/20 08:23 Dose: 40 mg Documented by: Sodium Chloride (0.9% Saline Lock 10 Ml Syringe) 10 - 40 ml IV UD PRN PRN Reason: SALINE FLUSH Throat Lozenges (Benzocaine/Menthol 1 Lozenge) 1 lozenge MUCOUS MEM Q2H PRN PRN PRN Reason: SORE THROAT Home Medications: Medications to take at Discharge Adalimumab [Humira] 40 mg SQ Q14D 01/10/14 Omeprazole [Prilosec] 40 mg PO DAILY 01/10/14 Cholestyramine (with Sugar) [Cholestyramine Powder] 1 dose PO QHS 12/16/17 lipase/protease/amylase [Creon DR 12,000 Unit Capsule] 3 cap PO TIDCM 06/21/18 albuterol sulfate 90 mcg/actuation aerosol inhaler 2 puff INHALATION Q6H PRN #1 device 05/15/19 azelastine 137 mcg (0.1 %) nasal spray aerosol 1 spray INTRANASAL Q12H #30 ml 05/15/19 Ondansetron [Zofran Odt] 4 mg PO Q12H PRN PRN 09/06/19 Fluticasone Propionate 1 spray INHALATION DAILY 06/18/20 Ipratropium [place] 0.2 mg IH Q6H PRN PRN 06/18/20 Montelukast [Singulair] 10 mg PO DAILY 06/18/20 Prednisone 10 mg PO DAILY #40 tab 07/14/20 Following Prescriptions Were Given to Patient: Prednisone 10 mg PO DAILY #40 tab Prescription Printed Primary Care Physician: Shante Castro MD [Primary Care Provider] - Medical Necessity - Tobacco Use Smoking Status: Never smoker Meaningful Use Info Meaningful Use Diagnoses (Choose all that apply): None applicable Inpatient E&M: [id number] [facility]
--- NOTE | 2020-07-14 16:49 | CON.PCM_ITS ---
Problem List (1) COPD exacerbation Status: Acute Reason for Consult: copd Consulted by: Dr. Keller History of Present Illness: The patient is a 65 year old M with COPD, presented 07/13 with 3-4 days of worsening cough and dyspnea. No sick contacts, strict about masking/distancing. No fever, no change in taste or smell, no aches, no n/v/d. Some white sputum, typical for him. Covid neg x2, started on dex. Feeling much better today, not quite back to baseline. Full ROS performed and neg except as noted above. - Medical History Past Medical History (Chronic Problems): Chronic Problems (Last Reviewed 07/13/20 @ 16:[address] Adele Keller, DO) Shortness of breath (Chronic) Gynecomazia (Chronic) Chronic pancreatitis (Chronic) Crohn's disease of small intestine (Chronic) Dyslipidemia (Chronic) Allergies/Adverse Reactions: Allergies budesonide Allergy (Verified 07/13/20 16:46) Swelling Home Medications: Ambulatory Orders Medication Instructions Recorded Adalimumab [Humira] 40 mg SQ Q14D 01/10/14 Omeprazole [Prilosec] 40 mg PO DAILY 01/10/14 Cholestyramine (with Sugar) 1 dose PO QHS 12/16/17 [Cholestyramine Powder] lipase/protease/amylase [Maira ROSARIO 3 cap PO TIDCM 06/21/18 12,000 Unit Capsule] albuterol sulfate 90 mcg/actuation 2 puff INHALATION Q6H PRN #1 device 05/15/19 aerosol inhaler azelastine 137 mcg (0.1 %) nasal 1 spray INTRANASAL Q12H #30 ml 05/15/19 spray aerosol Ondansetron [Zofran Odt] 4 mg PO Q12H PRN PRN 09/06/19 Fluticasone Propionate 1 spray INHALATION DAILY 06/18/20 Ipratropium [place] 0.2 mg IH Q6H PRN PRN 06/18/20 Montelukast [Singulair] 10 mg PO DAILY 06/18/20 Prednisone 10 mg PO DAILY #40 tab 07/14/20 - Social History SMOKING STATUS:: Former smoker Vital Signs Temp Pulse Resp BP Pulse Ox 96.4 F L 92 18 136/71 H 96 07/14/20 08:32 07/14/20 09:59 07/14/20 08:32 07/14/20 08:32 07/14/20 08:32 Oxygen Flow Rate (L/min) 3 Oxygen Delivery Method Room Air Weight: 110 kg Body Mass Index (BMI) 33.8 Microbiology Past 72 Hours 07/14/20 13:35 SARS-CoV-2 Antigen (Rapid) - Final Mucosa - Nose 07/13/20 12:55 Respiratory Panel (PCR) - Final Mucosa - Nose Laboratory Tests Past 24 Hrs 07/13/20 07/13/20 07/14/20 12:55 12:55 05:22 WBC 10.7 RBC 4.54 L Hgb 14.0 Hct 43.1 MCV 94.9 H MCH 30.8 MCHC 32.5 RDW Std Deviation 45.7 H RDW Coeff of Zachary 13.0 Plt Count 283 MPV 9.3 Immature Gran % (Auto) 0.700 Neut % (Auto) 85.7 H Lymph % (Auto) 10.5 L [place] % (Auto) 3.0 Eos % (Auto) 0.0 Baso % (Auto) 0.1 Absolute Neuts (auto) 9.2 H Absolute Lymphs (auto) 1.12 Nucleated RBC % 0 Fibrinogen 621 H D-Dimer Quant (PE/DVT) 0.50 H Sodium Potassium Chloride Carbon Dioxide Anion Gap BUN Creatinine Estim Creat Clear Calc Est GFR (MDRD) Af Amer Est GFR (MDRD) Non-Af BUN/Creatinine Ratio Glucose Calcium Phosphorus Magnesium Total Bilirubin AST ALT Alkaline Phosphatase Total Protein Albumin Globulin Albumin/Globulin Ratio TSH COVID-19 (TONY) Not Detected 07/14/20 05:22 WBC RBC Hgb Hct MCV MCH MCHC RDW Std Deviation RDW Coeff of Zachary Plt Count MPV Immature Gran % (Auto) Neut % (Auto) Lymph % (Auto) [place] % (Auto) Eos % (Auto) Baso % (Auto) Absolute Neuts (auto) Absolute Lymphs (auto) Nucleated RBC % Fibrinogen D-Dimer Quant (PE/DVT) Sodium 139 Potassium 4.4 Chloride 105 Carbon Dioxide 25.0 Anion Gap 9 BUN 17 Creatinine 0.79 Estim Creat Clear Calc 76.35 Est GFR (MDRD) Af Amer 126 Est GFR (MDRD) Non-Af 104 BUN/Creatinine Ratio 21.5 H Glucose 124 H Calcium 8.8 Phosphorus 2.7 Magnesium 2.2 Total Bilirubin 0.60 AST 19 ALT 23 Alkaline Phosphatase 88 Total Protein 6.6 Albumin 3.1 L Globulin 3.5 Albumin/Globulin Ratio 0.9 TSH 0.33 L COVID-19 (TONY) - Other Studies Radiology: [] reviewed Other Studies: [] Route of nutrition/ use of supplements: [] Nutritional Intake: [] IV Site: [] Tavarez Catheter: [] - Physical Exam General: Alert, Oriented x3, Cooperative, No apparent distress HEENT: Atraumatic, PERRLA, EOMI Neck: Supple, No Nodes Lungs: Clear to auscultation, Diminished, Wheezes Cardiovascular: Regular rate, Regular Rhythm Abdomen: Soft, Non Tender, Non-Distended Extremities: No edema Skin: No rashes IV Site: Peripheral, without redness Musculoskeletal: No Tenderness to Palpation of Joints or Extremities - Assessment/Plan Antibiotics: [] Assessment/Plan: [] Active and Suspected Problems (Last Reviewed 07/13/20 @ 16:[address] Adele Keller, DO) COPD exacerbation (Acute) Acute and chronic respiratory failure with hypercapnia (Acute) Acute bronchospasm (Acute) Bilateral interstitial pneumonia (Acute) Cough (Acute) covid neg x2, symptoms and labs otherwise not consistent with covid. Ok for d/c home from ID perspective. Will follow as needed, thank you, d/w Dr. Keller
[2020-07-14] MEDS: Cholestyramine/Sucrose 4 GM/PACKET 1 GM PO (21:34)
--- NOTE | 2020-07-14 21:36 | PCM.DC ---
- Discharge Diagnoses Current Active Problems: Current Active and Chronic Problems (Last Reviewed 07/13/20 @ 16:[address] Adele Keller DO) COPD exacerbation (Acute) Acute and chronic respiratory failure with hypercapnia (Acute) Acute bronchospasm (Acute) Bilateral interstitial pneumonia (Acute) Cough (Acute) Shortness of breath (Chronic) Gynecomazia (Chronic) Chronic pancreatitis (Chronic) Crohn's disease of small intestine (Chronic) Dyslipidemia (Chronic) You will use the following diet at home:: No restrictions, Cardiac Your food should be the consistency of: Regular Your liquids should be the consistency of: Regular/Thin Allergies/Adverse Reactions: Allergies budesonide Allergy (Verified 07/13/20 16:46) Swelling Medications to take at Discharge Adalimumab [Humira] 40 mg SQ Q14D 01/10/14 Omeprazole [Prilosec] 40 mg PO DAILY 01/10/14 Cholestyramine (with Sugar) [Cholestyramine Powder] 1 dose PO QHS 12/16/17 lipase/protease/amylase [Maira DR 12,000 Unit Capsule] 3 cap PO TIDCM 06/21/18 albuterol sulfate 90 mcg/actuation aerosol inhaler 2 puff INHALATION Q6H PRN #1 device 05/15/19 azelastine 137 mcg (0.1 %) nasal spray aerosol 1 spray INTRANASAL Q12H #30 ml 05/15/19 Ondansetron [Zofran Odt] 4 mg PO Q12H PRN PRN 09/06/19 Fluticasone Propionate 1 spray INHALATION DAILY 06/18/20 Ipratropium [place] 0.2 mg IH Q6H PRN PRN 06/18/20 Montelukast [Singulair] 10 mg PO DAILY 06/18/20 Prednisone 10 mg PO DAILY #40 tab 07/14/20 The following prescriptions were given: Prednisone 10 mg PO DAILY #40 tab Prescription Printed Primary Care Physician: Shante Castro MD [Primary Care Provider] - Please follow up with your Primary Care Physician in: 1-2 weeks Test Results: Test results from this visit will be discussed in further detail at your follow-up appointment, if applicable. Please Follow Up With: Humble Justin MD When: 4-6 weeks--> call for an appt
--- NOTE | 2020-07-14 21:47 | NURSING ---
pt states his can pick him up this evening pt wants to go home. apologized for lateness of dc paperwork. Pt understands and is looking forward to going home. dc papers given to primary rn to review with pt
--- NOTE | 2020-07-15 15:17 | CASEMGMT ---
DC DATE: DC DISPOSITION: DC DIAGNOSIS: SARS COVID 2 Attempted call to home phone. No answer, and no message with name identifier. Sheyla HERNANDEZN RN ACM
== END 2020-07-14 22:03 | disposition home or self-care (01) | DRG 193 ==
LOC: ED 13:56 → MS2 15:29
PROVIDERS: Admitting Provider Internal Medicine; Emergency Provider Emergency Medicine; PCP Internal Medicine; Visit Provider Internal Medicine
DX: J12.9 Viral pneumonia, unspecified (principal); J96.22 Acute and chronic respiratory failure with hypercapnia; J44.1 Chronic obstructive pulmonary disease with (acute) exacerbation; K86.1 Other chronic pancreatitis; K50.00 Crohn's disease of small intestine without complications; J44.0 Chronic obstructive pulmonary disease with (acute) lower respiratory infection; E78.5 Hyperlipidemia, unspecified; N62 Hypertrophy of breast; K21.9 Gastro-esophageal reflux disease without esophagitis; J30.9 Allergic rhinitis, unspecified; E66.3 Overweight; Z87.891 Personal history of nicotine dependence; Z68.34 Body mass index [BMI] 34.0-34.9, adult; Z80.1 Family history of malignant neoplasm of trachea, bronchus and lung; Z90.49 Acquired absence of other specified parts of digestive tract
CPT/HCPCS: 71045; 71250; 80053; 82803; 83605; 83615; 83735; 84100; 84443; 85025; 85379; 85384; 85610; 85730; 87040; 87426; 87633; 87635; 93005; 94640; 99251; 99285; J7030; J7120; A4216; G0463; U0002

== ENCOUNTER 2020-08-02 15:44 | Observation (INO) | payer MEDICARE, SELFPAY ==
[2020-07-13 16:37] VITALS: BMI 33.8
[2020-08-02] VITALS (9 sets, daily range): BP systolic 118–156; BP diastolic 80–96; PULSE 92–104; RESP 18–28; TEMP 36–36.5; O2SAT 98–100; BMI 34.2; BMI 32.8
--- NOTE | 2020-08-02 15:54 | EKG12_ITS ---
Test Reason : DYSRHYTHMIA Blood Pressure : / mmHG Vent. Rate : 098 BPM Atrial Rate : 098 BPM P-R Int : 162 ms QRS Dur : 098 ms QT Int : 336 ms P-R-T Axes : 075 063 055 degrees QTc Int : 428 ms Normal sinus rhythm Nonspecific ST abnormality Abnormal ECG Confirmed by CESAR HOLLAND, WES ([id number]), book or script editor JORGE DELACRUZ ([id number]) on 08/05/2020 9:13:59 AM Referred By: FENG Confirmed By:WES GUERRERO MD
--- NOTE | 2020-08-02 15:55 | ED.DCSUM_ITS ---
History of Present Illness Chief Complaint: Shortness of Breath Informant: Patient Onset: Days Context: Gradual Onset Timing: Continuous Current Severity: Moderate Maximum Severity: Moderate Narrative: Patient is a 65-year-old male with medical history significant for COPD who is on 2 L of oxygen as needed, presents to the emergency department with increasing cough and shortness of breath. Patient was hospitalized about 3 weeks ago. About that time, he had negative Covid by 2. His x-ray showed some patchy infiltrates. He was treated with Levaquin and steroids. He states he was doing better, but was still dyspneic. Over the past 3 days, his symptoms have worsened. He had a scant cough without productive sputum. He denies any fevers or chills. He states he cannot ambulate without getting very short of breath. He denies chest pain or significant edema. He states he was to follow-up with his regional director of admissions on Tuesday, but because of his shortness of breath came in here. Prior similar symptoms: Yes Recent Illness/Hospitalization: Yes Past Medical History - Allergies and Home Meds Allergies/Adverse Reactions: Allergies budesonide Allergy (Verified 08/02/20 15:44) Swelling Primary Care Physician: hSante Castro MD [Primary Care Provider] - Prior records reviewed: Yes Past Medical History: - - COPD, hypertension, Crohn's disease Surgical History: appendectomy, cholecystectomy, herniorrhaphy, - - s/p bowel resection, s/p ERCP Smoking Status: Never smoker - Family History Maternal Family History: Reports: No pertinent history Paternal Family History: Reports: - - Father with a history of lung cancer and concurrent tobacco use. Review of Systems General: Denies: Chills, Fever, Sweats Eyes: Denies: Visual changes - bilaterally, Diplopia ENT: Denies: Rhinorrhea, Sore throat Cardiovascular: Denies: Chest pain, Palpitations Respiratory: Reports: Dyspnea, Cough, Dyspnea on exertion Gastrointestinal: Denies: Abdominal pain, Nausea, Vomiting, Diarrhea, Melena, Hematochezia Genitourinary: Denies: Dysuria, Hematuria, Frequency Musculoskeletal: Denies: Back pain, Extremity Pain Skin: Denies: Rash, Wounds Neurological: Denies: Headache, Weakness, Numbness Physical Exam Vital Signs/Narrative: Vital Signs Temp Pulse Resp BP Pulse Ox 08/02/20 15:44 96.8 F L 104 H 26 H 156/95 H 100 Inital Vital Signs reviewed: Yes General: Well nourished, Well developed, No Acute Distress Head: Normocephalic, Atraumatic Eyes: Perrl, EOMI ENT: Moist mucous membranes, No rhinorrhea Neck: Supple, Nontender Cardiovascular: Regular rate, Regular rhythm, No murmurs Respiratory: No distress, Chest nontender, Wheezing, Diminished Abdomen: Soft, Nontender, Nondistended, Normal bowel sounds Back: Nontender, Normal Inspection Extremities: Nontender, No edema Skin: Normal color, No rash Neurological: Alert, Oriented x3, Cranial nerves II-XII grossly intact, Normal Strength, Normal Sensation Psychological: Normal affect, Normal Mood Diagnostic/Tx/Re-eval Chest X-Ray - ED: 1 View, Read by ED Physician, Normal, Heart, Mediastinum, Chronic Changes Clinical Impression(s) from Imaging Studies Chest X-Ray 08/02/20 16:30 IMPRESSION: Stable chest with no acute finding. Electronically Signed: Doe Escamilla MD at 17:15 EST , Service support , Abnormal Lab Results 08/02/20 08/02/20 08/02/20 16:22 16:22 16:22 WBC 11.9 H RBC 4.67 Hgb 14.7 Hct 43.8 MCV 93.8 MCH 31.5 MCHC 33.6 RDW Std Deviation 44.7 H RDW Coeff of Zachary 13.0 Plt Count 244 MPV 9.1 Immature Gran % (Auto) 0.800 Neut % (Auto) 56.9 Lymph % (Auto) 24.2 [place] % (Auto) 9.3 Eos % (Auto) 7.7 H Baso % (Auto) 1.1 H Absolute Neuts (auto) 6.8 Absolute Lymphs (auto) 2.88 Nucleated RBC % 0 Sodium 139 Potassium 3.8 Chloride 107 Carbon Dioxide 26.0 Anion Gap 6 BUN 22 H Creatinine 0.96 Estim Creat Clear Calc 79.53 Est GFR (MDRD) Af Amer 100 Est GFR (MDRD) Non-Af 83 BUN/Creatinine Ratio 22.9 H Glucose 93 Calcium 8.7 Total Bilirubin 0.70 AST 14 L ALT 26 Alkaline Phosphatase 95 Troponin I < 0.015 B-Natriuretic Peptide 9.8 Total Protein 7.0 Albumin 3.3 Globulin 3.7 Albumin/Globulin Ratio 0.9 - Rhythm Strip Rhythm Strip: Sinus Rhythm Rate: 90 Ectopy: None - EKG Initial EKG Interpretation: Sinus Rhythm, No Acute Injury Pattern Prior: Unchanged - Medical Decision Making Patient presents with cough and shortness of breath. He has significant bronchospasm on examination. Metabolic work-up was pursued. The patient was not hypoxic, but does have persistent tachypnea. He was given albuterol inhaler with little change. He still had diminished air movement. Covid testing was negative. Chest x-ray shows no significant change. Labs are relatively unremarkable. EKG unchanged. Patient was given nebulized treatments when his Covid was negative. He still has persistent bronchospasm and tachypnea. He is conversational dyspnea. I do feel that he would benefit from admission for further respiratory care. The patient was discussed with the hospitalist. Impression 1. COPD exacerbation ED Disposition - Plan for ED Patient: Referrals: Shante Castro MD [Primary Care Provider] -
--- NOTE | 2020-08-02 16:30 | RAD_ITS ---
STUDY: X-RAY CHEST REASON FOR EXAM: Male, 65 years old. Increasing shortness of breath. TECHNIQUE: Single frontal view of the chest. COMPARISON: 07/13/2020 FINDINGS: Hyperexpansion unchanged. There is no demonstrated pleural abnormality. Stable cardiomegaly. Normal mediastinum and trae. Normal visualized pulmonary arteries. Normal visualized aortic arch and descending thoracic aorta. Normal visualized thoracic spine. Normal visualized ribs, clavicles, and shoulders. There is no demonstrated abnormality of the visualized soft tissue structures of the upper abdomen. RAD/Chest 1 View (Portable) IMPRESSION: Stable chest with no acute finding. Electronically Signed: Doe Escamilla MD at 17:15 EST , Service support ,
[2020-08-02 16:42] LABS: Absolute Lymphocyte Count 2.88 X10^3/uL (0.83-4.51); Absolute Neutrophil Count 6.8 X10^3/uL (2.0-7.7); Basophil# 0.13 X10^3/uL; Basophil% 1.1 % (0-1); Eosinophil# 0.91 X10^3/uL; Eosinophils% 7.7 % (0-5); Hematocrit 43.8 % (40-54); Hemoglobin 14.7 g/dL (13.0-16.5); Lymphocyte # 2.88 X10^3/ul (4.0); Lymphocyte % 24.2 % (19-41); Mean Corp Hgb Conc 33.6 g/dL (32-36); Mean Corpuscular Hgb 31.5 pg (27.0-32.0); Mean Corpuscular Volume 93.8 fL (80-94); Mean Platelet Vol. 9.1 fl (6.2-12.0); Monocyte# 1.11 X10^3/uL; Monocyte% 9.3 % (0-10); NRBC Flagged by Analyzer 0 % (0-5); Neutrophil # 6.76 X10^3/uL (2.7-7.7); Neutrophil % 56.9 % (47-70); Platelet Count 244 K/mm3 (150-450); RBC Distribution Width SD 44.7 fl (35.1-43.9); Red Blood Count 4.67 M/mm3 (4.6-6.2); White Blood Count 11.9 K/mm3 (4.4-11.0)
[2020-08-02 17:02] LABS: ALB/GLOB Ratio 0.9 RATIO (0.9-2.4); AST(SGOT) 14 U/L (15-37); Alanine Aminotransfer ALT/SGPT 26 U/L (16-61); Albumin, Serum 3.3 g/dL (3.2-5.0); Alkaline Phosphatase 95 U/L (45-117); Anion Gap 6 (5-15); BUN 22 mg/dL (7-18); BUN/Creat Ratio 22.9 RATIO (10-20); Calcium,Total 8.7 mg/dL (8.5-10.1); Chloride 107 mmol/L (98-107); Creatinine, Serum 0.96 mg/dL (0.70-1.30); EST Glomerular Filtration Rate 83 mL/min (>60); Est Glom Filt Rate - Afr Amer 100 mL/min (>60); Estimated Creatinine Clearance 79.53 ml/min; Globulin 3.7 g/dL (2.2-4.2); Glucose 93 mg/dL (74-106); Potassium 3.8 mmol/L (3.5-5.1); Sodium Level 139 mmol/L (136-145)
[2020-08-02] MEDS: MethylPREDNISolone 125 MG/2 ML Vial IV (17:09)
[2020-08-02] MEDS: Albuterol 2.5 MG/3 ML VIAL.NEB. INHALATION ×3 (17:11)
[2020-08-02] MEDS: Ipratropium/Albuterol Sulfate 3 ML AMPUL.NEB INHALATION ×2 (17:12→21:05)
[2020-08-02 17:13] LABS: BNP,B-Type NATRIURETIC PEPTIDE 9.8 pg/mL (0-100)
--- NOTE | 2020-08-02 17:27 | NURSING ---
MED SURG OBS SANDRAS COPD EXAC
--- NOTE | 2020-08-02 17:34 | PCM.HP.STD ---
<Ed Logan - Last Filed: 08/02/20 17:34> Problem List (1) COPD exacerbation Status: Acute (2) Chronic respiratory failure with hypoxia Status: Chronic (3) Crohn's disease of small intestine Status: Chronic Qualifiers: Digestive disease complication type: unspecified complication (4) Chronic pancreatitis Status: Chronic Qualifiers: Pancreatitis type: unspecified pancreatitis type (5) Dyslipidemia Status: Chronic History of Present Illness Date of Admission: 08/02/20 Chief Complaint: SOB The patient is a 65 year old M with pmhx of COPD pt of dr Kim, chronic hypoxic resp failure at 2lpm baseline via NC, Crohns s/p multiple small bowel resections, HLD, chronic pancreatitis who presented to the ER with SOB. The patient has had issues with breathing over the past month. He was admitted 06/18 with COPD and pna and discharged on 06/21. He worsened at home and was readmitted 07/13/20 with pna thought possibly covid at that time however he has had multiple negative covid tests. He never fully recovered and has worsened in the past 2 days. He notes cough with white sputum production, SOB, and wheezing. It is worse with exertion. He has no fever/chills/cp. No nausea/vomiting/diarrhea. He does not smoke. He is in the proccess of changing pulmonologists from [facility] to Dr. Kim. In the ER he is SOB and wheezy however without hypoxia on his normal 2lpmg o2 and without evidence of pna on cxr. [] Past Medical History Past Medical History (Chronic Problems): Chronic Problems (Last Reviewed 07/13/20 @ 16:[address] Adele Keller DO) Chronic respiratory failure with hypoxia (Chronic) Shortness of breath (Chronic) Gynecomazia (Chronic) Chronic pancreatitis (Chronic) Crohn's disease of small intestine (Chronic) Dyslipidemia (Chronic) Medical History: Medical History (Last Reviewed 07/13/20 @ 16:[address] Adele Keller DO) Gynecomazia (Chronic) N62 Chronic pancreatitis (Chronic) K86.1 Crohn's disease of small intestine (Chronic) K50.00 Dyslipidemia (Chronic) E78.5 Acute bronchitis (Resolved) J20.9 Allergies budesonide Allergy (Verified 08/02/20 15:44) Swelling Home Medications: Ambulatory Orders Medication Instructions Recorded Adalimumab [Humira] 40 mg SQ Q14D 01/10/14 Omeprazole [Prilosec] 40 mg PO DAILY 01/10/14 Cholestyramine (with Sugar) 1 dose PO QHS 12/16/17 [Cholestyramine Powder] lipase/protease/amylase [Creon DR 3 cap PO TIDCM 06/21/18 12,000 Unit Capsule] albuterol sulfate 90 mcg/actuation 2 puff INHALATION Q6H PRN #1 device 05/15/19 aerosol inhaler azelastine 137 mcg (0.1 %) nasal 1 spray INTRANASAL Q12H #30 ml 05/15/19 spray aerosol Ondansetron [Zofran Odt] 4 mg PO Q12H PRN PRN 09/06/19 Fluticasone Propionate 1 spray INHALATION DAILY 06/18/20 Ipratropium Forgan 0.2 mg IH Q6H PRN PRN 06/18/20 Montelukast [Singulair] 10 mg PO DAILY 06/18/20 Surgical History: Surgical History (Last Reviewed 05/15/19 @ 11:14 by Soraida Victoria) Abdominal hernia (Resolved) K46.9 History of ERCP (Resolved) Z98.890 06/19/2018 History of appendectomy (Resolved) Z90.49 History of bowel resection (Resolved) Z98.890, Z90.49 History of cholecystectomy (Resolved) Z90.49 Surgical History: appendectomy, cholecystectomy, herniorrhaphy, - - s/p bowel resection, s/p ERCP Psychiatric History: No pertinent psych hx Lives: Spouse/ Significant Other Smoking Status: Never smoker Tobacco Use: Non-smoker Alcohol: None Drugs: None - *Family History Maternal History Items: - - denies hx CAD, cancer, DM, stroke, lung disease Paternal History Items: - - Father with a history of lung cancer and concurrent tobacco use. Review of Systems Constitutional: Denies: Chills, Fever, Weight Change HEENT: Denies: Head Aches, Sinus Congestion, Sinus Drainage Cardiovascular: Denies: Chest Pain, Palpitations Respiratory: Reports: Cough, Shortness of Breath, Shortness of breath at rest, Shortness of breath upon exertion, Sputum production, Wheezing. Denies: Hemoptysis Gastrointestinal: Denies: Abdominal Pain, Nausea, Vomiting Genitourinary: Denies: Dysuria Musculoskeletal: Denies: Joint Pain, Joint Tenderness Skin: Denies: Rash, Wounds Neurological: Denies: Numbness, Tingling, Focal weakness Psychiatric: Denies: Anxiety, Depression, Homicidal Ideations, Suicidal Ideations Hematologic/ Lymphatic: Denies: Easy Bruising, Easy Bleeding VTE Information - Inpt Only VTE Present on Admission: No VTE Mechan Device Prophylaxis: None VTE Pharm Prophylaxis ordered?: Yes - Physical Exam Vitals/I&O's: Vital Signs Temp Pulse Resp BP Pulse Ox 96.8 F L 92 23 H 118/80 100 08/02/20 15:44 08/02/20 16:48 08/02/20 16:48 08/02/20 16:48 08/02/20 16:48 Oxygen Flow Rate (L/min) 2 Oxygen Delivery Method Nasal Cannula Weight: 246 lb Body Mass Index (BMI) 34.2 General: Alert, Oriented x3, Cooperative HEENT: Atraumatic, PERRLA, EOMI, Normocephalic Neck: Supple, No JVD, Negative Carotid Bruits Lungs: Diminished, Wheezes Cardiovascular: Regular rate, No murmurs Abdomen: Bowel Sounds Present, Soft, Non Tender, Obese Extremities: No edema, Capillary Refill Less than 3 Seconds Skin: No rashes, No breakdown Musculoskeletal: No Tenderness to Palpation of Joints or Extremities Neurological: Cranial nerves II-XII grossly intact Psych/Mental Status: Normal Affect, Appropriate, Alert and oriented to time, place, person, mood and affect Microbiology Past 72 Hours 08/02/20 16:20 Mucosa - Nose SARS-CoV-2 Antigen (Rapid) - Final Laboratory Results 08/02/20 16:22: Sodium 139, Potassium 3.8, Chloride 107, Carbon Dioxide 26.0, Anion Gap 6, BUN 22 H, Creatinine 0.96, Estim Creat Clear Calc 79.53, Est GFR (MDRD) Af Amer 100, Est GFR (MDRD) Non-Af 83, BUN/Creatinine Ratio 22.9 H, Glucose 93, Calcium 8.7, Total Bilirubin 0.70, AST 14 L, ALT 26, Alkaline Phosphatase 95, Troponin I < 0.015, Total Protein 7.0, Albumin 3.3, Globulin 3.7, Albumin/Globulin Ratio 0.9 08/02/20 16:22: B-Natriuretic Peptide 9.8 08/02/20 16:22: WBC 11.9 H, RBC 4.67, Hgb 14.7, Hct 43.8, MCV 93.8, MCH 31.5, MCHC 33.6, RDW Std Deviation 44.7 H, RDW Coeff of Zachary 13.0, Plt Count 244, MPV 9.1, Immature Gran % (Auto) 0.800, Neut % (Auto) 56.9, Lymph % (Auto) 24.2, [place] % (Auto) 9.3, Eos % (Auto) 7.7 H, Baso % (Auto) 1.1 H, Absolute Neuts (auto) 6.8, Absolute Lymphs (auto) 2.88, Nucleated RBC % 0 08/02/20 17:06: Lactic Acid Pending Current Medications Albuterol Sulfate (Albuterol 2.5 Mg/3 Ml Vial.Neb.) 2.5 mg INHALATION Q20M ASHISH Stop: 08/02/20 17:56 Last Admin: 08/02/20 17:11 Dose: 2.5 mg Documented by: Assessment/Plan All Active Problems (Last Reviewed 07/13/20 @ 16:[address] Adele Keller, DO) COPD exacerbation (Acute) Acute and chronic respiratory failure with hypercapnia (Acute) Acute bronchospasm (Acute) Bilateral interstitial pneumonia (Acute) Cough (Acute) Abdominal hernia (Resolved) Acute bronchitis (Resolved) Acute on recurrent pancreatitis (Resolved) CAP (community acquired pneumonia) (Resolved) Choledocholithiasis (Resolved) History of ERCP (Resolved) History of appendectomy (Resolved) History of bowel resection (Resolved) History of cholecystectomy (Resolved) Idiopathic pancreatitis (Resolved) Obstructive jaundice (Resolved) Pneumonia (Resolved) Subcapsular hematoma of liver (Resolved) Transaminitis (Resolved) 1. Acute COPD exacerbation, chronic hypoxic respiratory failure - multiple admissions and COPD exacerbations recently. No hypoxia. Severe wheezing. CXR neg. Start solumedrol/duonebs/incentive spirometer. Covid neg x 3. Baseline o2 = 2lpm via NC. Pt of Dr. Kim. BNP neg. Trop neg. EKG without acute changes. 2. Crohns - on humira, therefore immunocompromised. No GI complaints at this time. Hx multiple small bowel resections. 3. Chronic pancreatitis - continue creon 4. 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 HLD - cholestyramine DVT ppx: lovenox This patient was seen by Ed Logan PA-C under the supervision of Dr. John. <Syd John - Last Filed: 08/02/20 18:31> History of Present Illness The patient is a 65 year old M [] Past Medical History Medical History: Medical History (Last Reviewed 07/13/20 @ 16:[address] Adele Keller, DO) Gynecomazia (Chronic) N62 Chronic pancreatitis (Chronic) K86.1 Crohn's disease of small intestine (Chronic) K50.00 Dyslipidemia (Chronic) E78.5 Acute bronchitis (Resolved) J20.9 Allergies budesonide Allergy (Verified 08/02/20 15:44) Swelling Surgical History: Surgical History (Last Reviewed 05/15/19 @ 11:14 by Soraida Victoria) Abdominal hernia (Resolved) K46.9 History of ERCP (Resolved) Z98.890 06/19/2018 History of appendectomy (Resolved) Z90.49 History of bowel resection (Resolved) Z98.890, Z90.49 History of cholecystectomy (Resolved) Z90.49 - Physical Exam Vitals/I&O's: Vital Signs Temp Pulse Resp BP Pulse Ox 97.6 F L 92 20 H 143/96 H 98 08/02/20 17:44 08/02/20 17:44 08/02/20 17:44 08/02/20 17:44 08/02/20 17:44 Oxygen Flow Rate (L/min) 2 Oxygen Delivery Method Nasal Cannula Weight: 246 lb Body Mass Index (BMI) 34.2 Microbiology Past 72 Hours 08/02/20 16:20 Mucosa - Nose SARS-CoV-2 Antigen (Rapid) - Final Laboratory Results 08/02/20 16:22: Sodium 139, Potassium 3.8, Chloride 107, Carbon Dioxide 26.0, Anion Gap 6, BUN 22 H, Creatinine 0.96, Estim Creat Clear Calc 79.53, Est GFR (MDRD) Af Amer 100, Est GFR (MDRD) Non-Af 83, BUN/Creatinine Ratio 22.9 H, Glucose 93, Calcium 8.7, Total Bilirubin 0.70, AST 14 L, ALT 26, Alkaline Phosphatase 95, Troponin I < 0.015, Total Protein 7.0, Albumin 3.3, Globulin 3.7, Albumin/Globulin Ratio 0.9 08/02/20 16:22: B-Natriuretic Peptide 9.8 08/02/20 16:22: WBC 11.9 H, RBC 4.67, Hgb 14.7, Hct 43.8, MCV 93.8, MCH 31.5, MCHC 33.6, RDW Std Deviation 44.7 H, RDW Coeff of Zachary 13.0, Plt Count 244, MPV 9.1, Immature Gran % (Auto) 0.800, Neut % (Auto) 56.9, Lymph % (Auto) 24.2, [place] % (Auto) 9.3, Eos % (Auto) 7.7 H, Baso % (Auto) 1.1 H, Absolute Neuts (auto) 6.8, Absolute Lymphs (auto) 2.88, Nucleated RBC % 0 08/02/20 17:06: Lactic Acid 1.6 Addendum: Dr. John I personally examined the patient and reviewed the chart. I agree with the above. 65-year-old male presents to the hospital with worsening shortness of breath. He was recently admitted to the hospital and treated for pneumonia about 3 weeks ago but he says that his shortness of breath never really improved. He is normally on 2 L nasal cannula, he says that he takes it at night mostly however for the last 2 days he has been using it continuously. He had 2 - Covid test at that time and he had a repeat negative Covid test here. He says that he has been diagnosed with COPD by tire mechanic at the [facility] however PFT data from our hospital demonstrates more of a restrictive lung disease. 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 We will continue with steroids and inhalers, will consult pulmonology as he has had a repeat admission from a respiratory standpoint in the last 3 weeks as well as he would like to transition over to their group. He is also on Humira for Crohn's but he takes it every 2 weeks therefore will not continue while here. OBSV E&M: [id number] Initial observation care L3
[2020-08-02 17:52] LABS: Lactic Acid 1.6 mmol/L (0.4-1.9)
[2020-08-02] MEDS: Azelastine HCl NASAL.SRY 1 SPRAY NASAL (20:21)
[2020-08-03] VITALS (11 sets, daily range): BP systolic 141–156; BP diastolic 74–88; PULSE 89–110; RESP 9–26; TEMP 36.4–36.9; O2SAT 97–99
[2020-08-03] MEDS: Ipratropium/Albuterol Sulfate 3 ML AMPUL.NEB INHALATION ×6 (04:05→22:33)
[2020-08-03 06:15] LABS: Absolute Lymphocyte Count 1.05 X10^3/uL (0.83-4.51); Absolute Neutrophil Count 9.8 X10^3/uL (2.0-7.7); Basophil# 0.03 X10^3/uL; Basophil% 0.3 % (0-1); Eosinophil# 0.01 X10^3/uL; Eosinophils% 0.1 % (0-5); Hematocrit 43.9 % (40-54); Hemoglobin 14.3 g/dL (13.0-16.5); Lymphocyte # 1.05 X10^3/ul (4.0); Lymphocyte % 9.5 % (19-41); Mean Corp Hgb Conc 32.6 g/dL (32-36); Mean Corpuscular Hgb 30.5 pg (27.0-32.0); Mean Corpuscular Volume 93.6 fL (80-94); Mean Platelet Vol. 9.1 fl (6.2-12.0); Monocyte% 0.9 % (0-10); NRBC Flagged by Analyzer 0 % (0-5); Neutrophil # 9.76 X10^3/uL (2.7-7.7); Neutrophil % 88.4 % (47-70); Platelet Count 246 K/mm3 (150-450); RBC Distribution Width CV 12.9 % (11.6-14.6); RBC Distribution Width SD 44.3 fl (35.1-43.9); Red Blood Count 4.69 M/mm3 (4.6-6.2)
[2020-08-03 06:43] LABS: Anion Gap 10 (5-15); BUN 22 mg/dL (7-18); BUN/Creat Ratio 22.7 RATIO (10-20); Calcium,Total 8.8 mg/dL (8.5-10.1); Chloride 105 mmol/L (98-107); Creatinine, Serum 0.97 mg/dL (0.70-1.30); EST Glomerular Filtration Rate 82 mL/min (>60); Est Glom Filt Rate - Afr Amer 99 mL/min (>60); Estimated Creatinine Clearance 78.71 ml/min; Glucose 143 mg/dL (74-106); Potassium 4.3 mmol/L (3.5-5.1); Sodium Level 137 mmol/L (136-145)
[2020-08-03] MEDS: Azelastine HCl NASAL.SRY 1 SPRAY NASAL ×2 (10:40→21:40)
[2020-08-03] MEDS: Fluticasone 0.05% 1 SPRAY NASAL.SRY NASAL (10:40)
[2020-08-03] MEDS: Enoxaparin 40 MG/0.4 ML Syringe SC (10:41)
[2020-08-03] MEDS: Pantoprazole Sodium 40 MG Tablet PO (10:42)
[2020-08-03] MEDS: Montelukast 10 MG Tablet PO (10:42)
--- NOTE | 2020-08-03 12:16 | PN_ITS ---
Patient Problems: Active and Suspected Problems (Last Reviewed 07/13/20 @ 16:[address] Adele Keller DO) COPD exacerbation (Acute) Subjective: Patient seen and examined. he was admitted with a complaint of shortness of breath. He is being managed for acute COPD exacerbation. Patient says he feels much better. Shortness of breath has improved. He remains on his 2l of oxygen. Vitals/I&O's: Vital Signs Temp Pulse Resp BP Pulse Ox 97.5 F L 97 20 H 156/87 H 97 08/03/20 07:41 08/03/20 10:48 08/03/20 10:48 08/03/20 07:41 08/03/20 07:41 Oxygen Flow Rate (L/min) 2 Oxygen Delivery Method Nasal Cannula Weight: 234 lb 15.992 oz Body Mass Index (BMI) 32.8 Intake and Output for Last 24 Hours 08/01/20 08/02/20 08/03/20 23:59 23:59 23:59 Output Total 450 / 450 Balance -450 / -450 General: Alert, Oriented x3, Cooperative, No apparent distress HEENT: Atraumatic, PERRLA, EOMI, Normocephalic Oral: Dry Mucosa Neck: Supple, No JVD, Negative Carotid Bruits Lungs: - - diminished breath sounds bibasally, no wheezes or crackles. on 2L of oxygen Cardiovascular: Regular rate, Regular Rhythm, Normal S1, Normal S2, No murmurs Abdomen: Bowel Sounds Present, Soft, Non Tender, Non-Distended, No Hepato- splenomegaly Extremities: No clubbing, No cyanosis, No edema, Capillary Refill Less than 3 Seconds Skin: No rashes, No breakdown Musculoskeletal: No Tenderness to Palpation of Joints or Extremities Lymphatic: No Cervical, Supraclavicular, or Inguinal Adenopathy Neurological: Cranial nerves II-XII grossly intact, Neuro grossly intact, Motor Exam 5/5 strength throughout Psych/Mental Status: Normal Affect, Appropriate, Alert and oriented to time, place, person, mood and affect Microbiology Past 72 Hours 08/02/20 16:20 Mucosa - Nose SARS-CoV-2 Antigen (Rapid) - Final Laboratory Results 08/02/20 16:22: Sodium 139, Potassium 3.8, Chloride 107, Carbon Dioxide 26.0, Anion Gap 6, BUN 22 H, Creatinine 0.96, Estim Creat Clear Calc 79.53, Est GFR (MDRD) Af Amer 100, Est GFR (MDRD) Non-Af 83, BUN/Creatinine Ratio 22.9 H, Gluc ose 93, Calcium 8.7, Total Bilirubin 0.70, AST 14 L, ALT 26, Alkaline Phosphatase 95, Troponin I < 0.015, Total Protein 7.0, Albumin 3.3, Globulin 3.7, Albumin/Globulin Ratio 0.9 08/02/20 16:22: B-Natriuretic Peptide 9.8 08/02/20 16:22: WBC 11.9 H, RBC 4.67, Hgb 14.7, Hct 43.8, MCV 93.8, MCH 31.5, MCHC 33.6, RDW Std Deviation 44.7 H, RDW Coeff of Zachary 13.0, Plt Count 244, MPV 9.1, Immature Gran % (Auto) 0.800, Neut % (Auto) 56.9, Lymph % (Auto) 24.2, [place] % (Auto) 9.3, Eos % (Auto) 7.7 H, Baso % (Auto) 1.1 H, Absolute Neuts (auto) 6.8, Absolute Lymphs (auto) 2.88, Nucleated RBC % 0 08/02/20 17:06: Lactic Acid 1.6 08/03/20 05:40: WBC 11.0, RBC 4.69, Hgb 14.3, Hct 43.9, MCV 93.6, MCH 30.5, MCHC 32.6, RDW Std Deviation 44.3 H, RDW Coeff of Zachary 12.9, Plt Count 246, MPV 9.1, Immature Gran % (Auto) 0.800, Neut % (Auto) 88.4 H, Lymph % (Auto) 9.5 L, [place] % (Auto) 0.9, Eos % (Auto) 0.1, Baso % (Auto) 0.3, Absolute Neuts (auto) 9.8 H, Absolute Lymphs (auto) 1.05, Nucleated RBC % 0 08/03/20 05:40: Sodium 137, Potassium 4.3, Chloride 105, Carbon Dioxide 22.0, Anion Gap 10, BUN 22 H, Creatinine 0.97, Estim Creat Clear Calc 78.71, Est GFR (MDRD) Af Amer 99, Est GFR (MDRD) Non-Af 82, BUN/Creatinine Ratio 22.7 H, Glucose 143 H, Calcium 8.8 Diagnostic Data Chest X-Ray 08/02/20 16:30 IMPRESSION: Stable chest with no acute finding. Electronically Signed: Doe Escamilla MD at 17:15 EST , Service support , Current Medications Acetaminophen (Acetaminophen 325 Mg Tablet) 650 mg PO Q6H PRN PRN PRN Reason: Pain Score 1-10/Temp > 100.7 F Albuterol/Ipratropium (Ipratropium/Albuterol Sulfate 3 Ml Ampul.Neb) 3 ml INHALATION Q4HWA.RT [facility] Last Admin: 08/03/20 10:55 Dose: 3 ml Documented by: Azelastine HCl (Azelastine Hcl Nasal.Sry) 1 spray NASAL Q12 [facility] Last Admin: 08/03/20 10:40 Dose: 1 spray Documented by: Cholestyramine Resin (Cholestyramine/Sucrose 4 Gm/Packet) 4 gm PO QHS ASHISH Enoxaparin Sodium (Enoxaparin 40 Mg/0.4 Ml Syringe) 40 mg SC DAILY [facility] Last Admin: 08/03/20 10:41 Dose: 40 mg Documented by: Fluticasone Propionate (Fluticasone 0.05% 1 Olden Nasal.Sry) 1 spray NASAL DAILY [facility] Last Admin: 08/03/20 10:40 Dose: 1 spray Documented by: Melatonin (Melatonin 3 Mg Tablet) 3 mg PO QHS PRN PRN PRN Reason: INSOMNIA Methylprednisolone (Methylprednisolone 40 Mg/Ml Vial) 40 mg IV Q8 [facility] Last Admin: 08/03/20 07:43 Dose: 40 mg Documented by: Montelukast Sodium (Montelukast 10 Mg Tablet) 10 mg PO DAILY [facility] Last Admin: 08/03/20 10:42 Dose: 10 mg Documented by: Ondansetron HCl (Ondansetron 4 Mg/2 Ml Vial) 4 mg IV Q8H PRN PRN PRN Reason: NAUSEA/VOMITING Pancrelipase (Creon 12,[address] Capsule) 3 capsule PO TIDCM [facility] Last Admin: 08/03/20 11:25 Dose: 3 capsule Documented by: Pantoprazole Sodium (Pantoprazole Sodium 40 Mg Tablet) 40 mg PO DAILY ASHISH Last Admin: 08/03/20 10:42 Dose: 40 mg Documented by: Sodium Chloride (0.9% Saline Lock 10 Ml Syringe) 10 - 40 ml IV UD PRN PRN Reason: SALINE FLUSH STROKE Vital Signs/Narrative: Vital Signs Pulse Resp 08/03/20 10:48 97 20 H Medical Necessity - Tobacco Use Smoking Status: Never smoker Tobacco Use: Non-smoker Assessment/Plan All Active Problems (Last Reviewed 07/13/20 @ 16:[address] Adele Keller, DO) COPD exacerbation (Acute) Acute and chronic respiratory failure with hypercapnia (Acute) Acute bronchospasm (Acute) Bilateral interstitial pneumonia (Acute) Cough (Acute) Abdominal hernia (Resolved) Acute bronchitis (Resolved) Acute on recurrent pancreatitis (Resolved) CAP (community acquired pneumonia) (Resolved) Choledocholithiasis (Resolved) History of ERCP (Resolved) History of appendectomy (Resolved) History of bowel resection (Resolved) History of cholecystectomy (Resolved) Idiopathic pancreatitis (Resolved) Obstructive jaundice (Resolved) Pneumonia (Resolved) Subcapsular hematoma of liver (Resolved) Transaminitis (Resolved) #Acute COPD exacerbation * feels better. * on IV solumedrol 40mg q8 * on breathing treatments with bronchodilators * titrate oxygen to maintain sats>90% * * #Crohn's disease: on Humira #history of chronic pancreatitis; on creon # Chronic hypoxic respiratory failure * on 2L of oxygen which is chronic * titrate oxygen to maintain sats >90% * #Obesity: complicates acute care, prognosis and expected recovery. Hyperlipidemia: on cholestyramine. DVT prophylaxis: lovenox OBSV E&M: [id number] Subsequent observation care L2
[2020-08-03] MEDS: 0.9% Saline Lock 10 ML Syringe IV ×2 (14:09→21:41)
[2020-08-03] MEDS: Cholestyramine/Sucrose 4 GM/PACKET PO (21:41)
[2020-08-04] VITALS (8 sets, daily range): BP systolic 136–143; BP diastolic 85–88; PULSE 81–97; RESP 18–20; TEMP 36.3–36.6; O2SAT 95–100
[2020-08-04] MEDS: Ipratropium/Albuterol Sulfate 3 ML AMPUL.NEB INHALATION ×3 (03:02→10:44)
[2020-08-04] MEDS: 0.9% Saline Lock 10 ML Syringe IV ×2 (05:42→13:09)
[2020-08-04 05:55] LABS: Absolute Lymphocyte Count 1.19 X10^3/uL (0.83-4.51); Absolute Neutrophil Count 19.7 X10^3/uL (2.0-7.7); Basophil# 0.03 X10^3/uL; Basophil% 0.1 % (0-1); Hematocrit 42.2 % (40-54); Lymphocyte # 1.19 X10^3/ul (4.0); Lymphocyte % 5.4 % (19-41); Mean Corp Hgb Conc 33.2 g/dL (32-36); Mean Corpuscular Hgb 30.8 pg (27.0-32.0); Mean Corpuscular Volume 92.7 fL (80-94); Mean Platelet Vol. 9.1 fl (6.2-12.0); Monocyte# 0.77 X10^3/uL; Monocyte% 3.5 % (0-10); NRBC Flagged by Analyzer 0 % (0-5); Neutrophil # 19.71 X10^3/uL (2.7-7.7); Platelet Count 254 K/mm3 (150-450); RBC Distribution Width CV 13.2 % (11.6-14.6); RBC Distribution Width SD 45.4 fl (35.1-43.9); Red Blood Count 4.55 M/mm3 (4.6-6.2); White Blood Count 21.9 K/mm3 (4.4-11.0)
[2020-08-04 06:30] LABS: Anion Gap 5 (5-15); BUN 24 mg/dL (7-18); BUN/Creat Ratio 24.5 RATIO (10-20); Calcium,Total 9.1 mg/dL (8.5-10.1); Chloride 107 mmol/L (98-107); Creatinine, Serum 0.98 mg/dL (0.70-1.30); EST Glomerular Filtration Rate 81 mL/min (>60); Est Glom Filt Rate - Afr Amer 98 mL/min (>60); Glucose 138 mg/dL (74-106); Potassium 4.3 mmol/L (3.5-5.1); Sodium Level 138 mmol/L (136-145)
--- NOTE | 2020-08-04 09:57 | CASEMGMT ---
AMANDA CM in to discuss NEVES form with patient. RN CM explained NEVES form patient, patient voiced understanding. Patient had no questions or concerns. Patient signed NEVES form and original placed in chart. Patient provided with copy of signed form.
[2020-08-04] MEDS: Pantoprazole Sodium 40 MG Tablet PO (10:19)
[2020-08-04] MEDS: Azelastine HCl NASAL.SRY 1 SPRAY NASAL (10:19)
[2020-08-04] MEDS: Montelukast 10 MG Tablet PO (10:19)
[2020-08-04] MEDS: Fluticasone 0.05% 1 SPRAY NASAL.SRY NASAL (10:19)
--- NOTE | 2020-08-04 11:20 | PCM.DC ---
- Discharge Diagnoses Current Active Problems: Current Active and Chronic Problems (Last Reviewed 07/13/20 @ 16:[address] Adele Keller DO) COPD exacerbation (Acute) Chronic respiratory failure with hypoxia (Chronic) Chronic pancreatitis (Chronic) Crohn's disease of small intestine (Chronic) Dyslipidemia (Chronic) You will use the following diet at home:: Cardiac Your food should be the consistency of: Regular Your liquids should be the consistency of: Regular/Thin Discharge Activity: Return to Normal Activity Weight Bearing Status: Weight bearing as tolerated Instructions: Treatments for COPD, ED COPD Flare Additional Instructions: use oxygen for shortness of breath as needed. Allergies/Adverse Reactions: Allergies budesonide Allergy (Verified 08/02/20 15:44) Swelling Medications to take at Discharge Adalimumab [Humira] 40 mg SQ Q14D 01/10/14 Omeprazole [Prilosec] 40 mg PO DAILY 01/10/14 Cholestyramine (with Sugar) [Cholestyramine Powder] 1 dose PO QHS 12/16/17 lipase/protease/amylase [Maira DR 12,000 Unit Capsule] 3 cap PO TIDCM 06/21/18 albuterol sulfate 90 mcg/actuation aerosol inhaler 2 puff INHALATION Q6H PRN #1 device 05/15/19 azelastine 137 mcg (0.1 %) nasal spray aerosol 1 spray INTRANASAL Q12H #30 ml 05/15/19 Ondansetron [Zofran Odt] 4 mg PO Q12H PRN PRN 09/06/19 Fluticasone Propionate 1 spray INHALATION DAILY 06/18/20 Ipratropium [place] 0.2 mg IH Q6H PRN PRN 06/18/20 Montelukast [Singulair] 10 mg PO DAILY 06/18/20 MethylPREDNISolone DosePak [Medrol DosePak] 4 mg PO UD #1 box 08/04/20 The following prescriptions were given: MethylPREDNISolone DosePak [Medrol DosePak] 4 mg PO UD #1 box Transmission Status: Pending to [id number] Primary Care Physician: Shante Castro MD [Primary Care Provider] - Please follow up with your Primary Care Physician in: 1-2 weeks Test Results: Test results from this visit will be discussed in further detail at your follow-up appointment, if applicable. Please Follow Up With: Walter Kim DO When: 2 weeks Proposed Discharge Date: 08/04/20
--- NOTE | 2020-08-04 11:23 | PCM.DC.SUM ---
Discharge Date and Diagnosis - Problem List Patient Problems: Active and Suspected Problems (Last Reviewed 07/13/20 @ 16:[address] Adele Keller DO) COPD exacerbation (Acute) Date of Admission: 08/02/20 Date of Discharge: 08/04/20 - Primary Discharge Diagnosis Acute Problems: Active Problems (Last Reviewed 07/13/20 @ 16:[address] Adele Keller DO) COPD exacerbation (Acute) - Secondary Discharge Diagnosis Chronic Problems: Chronic Problems (Last Reviewed 07/13/20 @ 16:[address] Adele Keller DO) Chronic respiratory failure with hypoxia (Chronic) Shortness of breath (Chronic) Gynecomazia (Chronic) Chronic pancreatitis (Chronic) Crohn's disease of small intestine (Chronic) Dyslipidemia (Chronic) Hospital Course and Treatment Imaging Results: Diagnostic Data Chest X-Ray 08/02/20 16:30 IMPRESSION: Stable chest with no acute finding. Electronically Signed: Doe Escamilla MD at 17:15 EST , Service support , Operations: None, ERCP, - Procedures: None Summary of Care Provided: The patient is a 65 year old M with a past medical history of chronic hypoxic respiratory failure due to COPD, on 2 L of oxygen, Crohn's disease, hyperlipidemia chronic pancreatitis. He was admitted through the ED on 08/02/2020 with a complaint of shortness of breath. He had been admitted in June 2020 for COPD exacerbation and pneumonia. He was readmitted on 07/13/2020 with pneumonia. Covid was ruled out at that time. He presented this time with shortness of breath and cough productive of whitish sputum as well as wheezing which was worsened by exertion. Review of symptoms otherwise negative. He was admitted and managed for acute COPD exacerbation. He was started on IV Solu-Medrol and breathing treatments with bronchodilators. Patient shortness of breath gradually improved and he went back on his baseline 2 L of oxygen. Patient says he is in the process of switching degreasing solution reclaimer from [facility] to Dr. Kim of [place] pulmonology. Patient remained stable and was discharged home on 08/04/2020 on medrol dose pack. He is to continue taking his inhalers as needed and uses oxygen for shortness of breath. He is to follow-up with his primary care doctor at this to follow-up with Dr. Kim in 2 weeks as he has already made an appointment. Patient seen and examined. He had no complaints and felt well. Review of symptoms otherwise negative. Labs and vitals reviewed. Home medication reviewed and reconciled. O/E: Vital Signs Temp Pulse Resp BP Pulse Ox 97.9 F 87 18 136/86 H 100 08/04/20 13:14 08/04/20 13:14 08/04/20 13:14 08/04/20 13:14 08/04/20 13:14 [] General: Alert, Oriented x3, Cooperative, No apparent distress HEENT: Atraumatic, PERRLA, EOMI, Normocephalic Oral: Dry Mucosa Neck: Supple, No JVD, Negative Carotid Bruits Lungs: - - diminished breath sounds bibasally, no wheezes or crackles. on 2L of oxygen Cardiovascular: Regular rate, Regular Rhythm, Normal S1, Normal S2, No murmurs Abdomen: Bowel Sounds Present, Soft, Non Tender, Non-Distended, No Hepato-splenomegaly Extremities: No clubbing, No cyanosis, No edema, Capillary Refill Less than 3 Seconds Skin: No rashes, No breakdown Musculoskeletal: No Tenderness to Palpation of Joints or Extremities Lymphatic: No Cervical, Supraclavicular, or Inguinal Adenopathy Neurological: Cranial nerves II-XII grossly intact, Neuro grossly intact, Motor Exam 5/5 strength throughout Psych/Mental Status: Normal Affect, Appropriate, Alert and oriented to time, place, person, mood and affect Plan is for discharge home today. Patient Problems: Active and Suspected Problems (Last Reviewed 07/13/20 @ 16:[address] Adele Keller, DO) COPD exacerbation (Acute) - Physical Exam Vitals/I&O's: Vital Signs Temp Pulse Resp BP Pulse Ox 97.3 F L 81 19 H 143/88 H 98 08/04/20 07:47 08/04/20 11:20 08/04/20 11:20 08/04/20 07:47 08/04/20 08:29 Oxygen Flow Rate (L/min) 2 Oxygen Delivery Method Nasal Cannula Weight: 234 lb 15.992 oz Body Mass Index (BMI) 32.8 Intake and Output for Last 24 Hours 08/02/20 08/03/20 08/04/20 23:59 23:59 23:59 Intake Total 900 / 900 Output Total 1350 / 1350 Balance -450 / -450 Microbiology Past 72 Hours 08/02/20 16:20 Mucosa - Nose SARS-CoV-2 Antigen (Rapid) - Final Laboratory Results 08/04/20 05:35: WBC 21.9 H, RBC 4.55 L, Hgb 14.0, Hct 42.2, MCV 92.7, MCH 30.8, MCHC 33.2, RDW Std Deviation 45.4 H, RDW Coeff of Zachary 13.2, Plt Count 254, MPV 9.1, Immature Gran % (Auto) 1.000 H, Neut % (Auto) 90.0 H, Lymph % (Auto) 5.4 L, [place] % (Auto) 3.5, Eos % (Auto) 0.0, Baso % (Auto) 0.1, Absolute Neuts (auto) 19.7 H, Absolute Lymphs (auto) 1.19, Nucleated RBC % 0 08/04/20 05:35: Sodium 138, Potassium 4.3, Chloride 107, Carbon Dioxide 26.0, Anion Gap 5, BUN 24 H, Creatinine 0.98, Estim Creat Clear Calc 77.90, Est GFR (MDRD) Af Amer 98, Est GFR (MDRD) Non-Af 81, BUN/Creatinine Ratio 24.5 H, Glucose 138 H, Calcium 9.1 Current Medications Acetaminophen (Acetaminophen 325 Mg Tablet) 650 mg PO Q6H PRN PRN PRN Reason: Pain Score 1-10/Temp > 100.7 F Albuterol/Ipratropium (Ipratropium/Albuterol Sulfate 3 Ml Ampul.Neb) 3 ml INHALATION Q4HWA.RT ASHISH Last Admin: 08/04/20 10:44 Dose: 3 ml Documented by: Azelastine HCl (Azelastine Hcl Nasal.Sry) 1 spray NASAL Q12 ASHISH Last Admin: 08/04/20 10:19 Dose: 1 spray Documented by: Cholestyramine Resin (Cholestyramine/Sucrose 4 Gm/Packet) 4 gm PO QHS ASHISH Last Admin: 08/03/20 21:41 Dose: 4 gm Documented by: Enoxaparin Sodium (Enoxaparin 40 Mg/0.4 Ml Syringe) 40 mg SC DAILY [facility] Last Admin: 08/04/20 10:18 Dose: Not Given Documented by: Fluticasone Propionate (Fluticasone 0.05% 1 [place] Nasal.Sry) 1 spray NASAL DAILY [facility] Last Admin: 08/04/20 10:19 Dose: 1 spray Documented by: Melatonin (Melatonin 3 Mg Tablet) 3 mg PO QHS PRN PRN PRN Reason: INSOMNIA Methylprednisolone (Methylprednisolone 40 Mg/Ml Vial) 40 mg IV Q8 [facility] Last Admin: 08/04/20 05:39 Dose: 40 mg Documented by: Montelukast Sodium (Montelukast 10 Mg Tablet) 10 mg PO DAILY [facility] Last Admin: 08/04/20 10:19 Dose: 10 mg Documented by: Ondansetron HCl (Ondansetron 4 Mg/2 Ml Vial) 4 mg IV Q8H PRN PRN PRN Reason: NAUSEA/VOMITING Pancrelipase (Creon 12,[address] Capsule) 3 capsule PO TIDCM [facility] Last Admin: 08/04/20 07:53 Dose: 3 capsule Documented by: Pantoprazole Sodium (Pantoprazole Sodium 40 Mg Tablet) 40 mg PO DAILY [facility] Last Admin: 08/04/20 10:19 Dose: 40 mg Documented by: Sodium Chloride (0.9% Saline Lock 10 Ml Syringe) 10 - 40 ml IV UD PRN PRN Reason: SALINE FLUSH Last Admin: 08/04/20 05:42 Dose: 10 ml Documented by: Discharge Diet: Low fat/ Low Cholesterol Discharge Activity: Return to Normal Activity Weight Bearing Status: Weight bearing as tolerated Call your doctor if you observe: Fever of 101 or Higher, Shortness of breath, Dizziness Home Medications: Medications to take at Discharge Adalimumab [Humira] 40 mg SQ Q14D 01/10/14 Omeprazole [Prilosec] 40 mg PO DAILY 01/10/14 Cholestyramine (with Sugar) [Cholestyramine Powder] 1 dose PO QHS 12/16/17 lipase/protease/amylase [Creon DR 12,000 Unit Capsule] 3 cap PO TIDCM 06/21/18 albuterol sulfate 90 mcg/actuation aerosol inhaler 2 puff INHALATION Q6H PRN #1 device 05/15/19 azelastine 137 mcg (0.1 %) nasal spray aerosol 1 spray INTRANASAL Q12H #30 ml 05/15/19 Ondansetron [Zofran Odt] 4 mg PO Q12H PRN PRN 09/06/19 Fluticasone Propionate 1 spray INHALATION DAILY 06/18/20 Ipratropium [place] 0.2 mg IH Q6H PRN PRN 06/18/20 Montelukast [Singulair] 10 mg PO DAILY 06/18/20 MethylPREDNISolone DosePak [Medrol DosePak] 4 mg PO UD #1 box 08/04/20 Following Prescriptions Were Given to Patient: MethylPREDNISolone DosePak [Medrol DosePak] 4 mg PO UD #1 box Transmission Status: Received by [id number] Primary Care Physician: Shante Castro MD [Primary Care Provider] - Please follow up with your Primary Care Physician in: 1-2 weeks Please Follow Up With: Walter Kim DO When: 2 weeks Patient Instructions: Treatments for COPD, ED COPD Flare Disposition: Home Minutes spent on discharge:: 40 Patient Condition:: Stable Medical Necessity - Tobacco Use Smoking Status: Never smoker Tobacco Use: Non-smoker Meaningful Use Info Meaningful Use Diagnoses (Choose all that apply): None applicable Inpatient E&M: 30089 Disch Hosp
--- NOTE | 2020-08-04 13:57 | PHA.DC.MC ---
Pharmacy Service has performed discharge medication reconciliation and counseling for this patient. 1. METHYLPREDNISOLONE DOSE PACK The patient's discharge medication list was reviewed for discrepancies and discrepancies were resolved. Home Medications Adalimumab [Humira] 40 mg SQ Q14D 01/10/14 Omeprazole [Prilosec] 40 mg PO DAILY 01/10/14 Cholestyramine (with Sugar) [Cholestyramine Powder] 1 dose PO QHS 12/16/17 lipase/protease/amylase [Maira DR 12,000 Unit Capsule] 3 cap PO TIDCM 06/21/18 albuterol sulfate 90 mcg/actuation aerosol inhaler 2 puff INHALATION Q6H PRN #1 device 05/15/19 azelastine 137 mcg (0.1 %) nasal spray aerosol 1 spray INTRANASAL Q12H #30 ml 05/15/19 Ondansetron [Zofran Odt] 4 mg PO Q12H PRN PRN 09/06/19 Fluticasone Propionate 1 spray INHALATION DAILY 06/18/20 Ipratropium [place] 0.2 mg IH Q6H PRN PRN 06/18/20 Montelukast [Singulair] 10 mg PO DAILY 06/18/20 MethylPREDNISolone DosePak [Medrol DosePak] 4 mg PO UD #1 box 08/04/20 The patient was counseled on the following discharge medications and changes in medications for homegoing were reviewed. The Reason for Use, instructions for use, and potential side effects were reviewed for all new medications. The patient's questions regarding all of their medications were answered. The patient was able to verbally demonstrate an understanding of their discharge medications.
== END 2020-08-04 13:34 | disposition home or self-care (01) ==
LOC: ED 17:53 → MS3 18:13
PROVIDERS: Admitting Provider Family Medicine; Emergency Provider Emergency Medicine; PCP Internal Medicine; Visit Provider Student in an Organized Health Care Education/Training Program
DX: J44.1 Chronic obstructive pulmonary disease with (acute) exacerbation (principal); J96.11 Chronic respiratory failure with hypoxia; E78.5 Hyperlipidemia, unspecified; K50.00 Crohn's disease of small intestine without complications; Z79.899 Other long term (current) drug therapy; Z79.51 Long term (current) use of inhaled steroids; I10 Essential (primary) hypertension; K86.1 Other chronic pancreatitis; E66.9 Obesity, unspecified; Z68.34 Body mass index [BMI] 34.0-34.9, adult; Z99.81 Dependence on supplemental oxygen
CPT/HCPCS: 36415; 71045; 80048; 80053; 83605; 83880; 84484; 85025; 87040; 87426; 93005; 94640; 96372; 96374; 96376; 97802; 99218; 99284; A4216; G0378

== ENCOUNTER → 2020-08-26 09:48 | Outpatient (CLI) | payer MEDICARE, SELFPAY ==
[2020-08-19 12:45] VITALS: BMI 33.7
--- NOTE | 2020-08-26 16:10 | PFTCOMP ---
COMPLETE PULMONARY FUNCTION TEST INTERPRETATION Brief HPI: Patient is a 65 year old male, currently under the care of Vickie Gutierrez, who presents to [facility] for complete pulmonary function tests secondary to diagnosis of dyspnea. Respiratory therapist reports good effort and reproducible results. Interpretation: Forced expiration spirometry shows a mild large airways obstructive ventilatory defect with an FEV1 of 81% predicted. There is a significant bronchodilator response in FEV1 by strict ATS criteria. Spirograms are of good quality and plateau slowly, indicating slowly emptying areas of the lungs. The respiratory flow volume loop shows decreased expiratory flow rates at all lung volumes consistent with airway obstruction. Lung volumes by body plethysmography show a decreased total lung capacity at 4.33 L, 64% predicted. All other lung volumes are reduced symmetrically. Diffusion capacity by carbon monoxide is normal at 73% predicted. The airway resistance is normal. Compared to previous pulmonary function tests from 05/03/2019, there is been a significant reduction in air trapping. Impression: Partially reversible mild mixed ventilatory defect with changes compared to 2019.
== END ==
PROVIDERS: PCP Internal Medicine; Referring Provider Nurse Practitioner Acute Care; Visit Provider Nurse Practitioner Acute Care
DX: R06.02 Shortness of breath (principal)
CPT/HCPCS: 94060; 94726; 94729

== ENCOUNTER → 2020-09-02 10:58 | Outpatient (CLI) | payer MEDICARE, SELFPAY ==
[2020-08-19 12:45] VITALS: BMI 33.7
[2020-09-02 11:29] VITALS: PULSE 102; PULSE 107; PULSE 109; PULSE 110; PULSE 112; PULSE 94; PULSE 97; O2SAT 96; O2SAT 97; O2SAT 98
--- NOTE | 2020-09-02 11:33 | CPS ---
PATIENT HAS OXYGEN VIA [facility] FOR PNEUMONIA/COPD. HE WEARS AT HS/ PRN. ENTIRE WALK TEST DONE ON ROOM AIR. PT TOOK REST BREAK EACH MINUTE FOR INCREASE WOB. 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 HE ATTRIBUTES SOB TO TODAYS COLD WEATHER.
--- NOTE | 2020-09-03 08:43 | WT_ITS ---
PSN 6 Minute Walk Test - 6 Minute Walk Test 6 Minute Walk Test: 6 Minute Walk Test PSN:6-Minute Walk Test Start: 09/02/20 11:28 Freq: Status: Active Protocol: [id number].6MINW Document 09/02/20 11:29 PENDING SALE TO [facility] (Rec: 09/02/20 11:37 PENDING SALE TO [facility] [id number]) 6 Minute Walk Test Date Performed 09/02/20 Time Performed 11:15 Height 5 ft 11 in Weight: 244 lb Weight in Pounds 244.[address]: Vickie Gutierrez [employer] PROFESSOR Assistive device used: None Pre-test Oxygen Delivery Method Room Air Pulse Ox (%) 98 Pulse Rate (60-100 beats/min) 97 Dyspnea Monika Scale (0-10) 4 Reported Symptoms Increased Work of Breathing 1st minute Oxygen Delivery Method Room Air Pulse Ox (%) 98 Pulse Rate (60-100 beats/min) 107 H Dyspnea [place] Scale (0-10) 5 Number of Rests Taken 1 Reported Symptoms Increased Work of Breathing 2nd minute Oxygen Delivery Method Room Air Pulse Ox (%) 98 Pulse Rate (60-100 beats/min) 102 H Dyspnea Monika Scale (0-10) 6 Number of Rests Taken 1 Reported Symptoms Increased Work of Breathing 3rd minute Oxygen Delivery Method Room Air Pulse Ox (%) 96 Pulse Rate (60-100 beats/min) 109 H Dyspnea [place]ika Scale (0-10) 6 Number of Rests Taken 1 Reported Symptoms Increased Work of Breathing 4th minute Oxygen Delivery Method Room Air Pulse Ox (%) 98 Pulse Rate (60-100 beats/min) 110 H Dyspnea [place]ika Scale (0-10) 6 Number of Rests Taken 1 Reported Symptoms Increased Work of Breathing 5th minute Oxygen Delivery Method Room Air Pulse Ox (%) 97 Pulse Rate (60-100 beats/min) 110 H Dyspnea Monika Scale (0-10) 7 Number of Rests Taken 1 Reported Symptoms Increased Work of Breathing 6th minute Oxygen Delivery Method Room Air Pulse Ox (%) 96 Pulse Rate (60-100 beats/min) 112 H Dyspnea [place]ika Scale (0-10) 7 Number of Rests Taken 1 Reported Symptoms Increased Work of Breathing Post-test Oxygen Delivery Method Room Air Pulse Ox (%) 98 Pulse Rate (60-100 beats/min) 94 Dyspnea [place]ika Scale (0-10) 4 Reported Symptoms Increased Work of Breathing Full Laps Walked 8 Partial Lap, Number of Tiles Walked 5 Total Distance Walked (ft) 477 09/02/20 11:33 Cardiopulmonary Services by Virginie Leiva PATIENT HAS OXYGEN [facility]IA [facility] FOR PNEUMONIA/COPD. H E WEARS AT HS/ PRN. ENTIRE WALK TEST DONE ON ROOM AIR. PT TOOK REST BREAK EACH MINUTE FOR INCREASE WOB. 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 HE ATTRIBUTES SOB TO TODAYS COLD WEATHER. Initialized on 09/02/20 11:33 - END OF NOTE - Interpretation Interpretation: The patient ambulated 477 feet over the course of 6 minutes beginning on room air without assistive devices. The patient did take several breaks throughout testing due to increased work of breathing. Pretesting oxygen saturation was noted to be 98% on room air. With ambulation, the michaela oxygen saturation was 96%. Although there was evidence of impaired walk distance, there was no significant exertional oxygen desaturation. - Recommendations Recommendations: There is no indication for the use of supplemental oxygen at this time.
== END ==
PROVIDERS: PCP Internal Medicine; Referring Provider Nurse Practitioner Acute Care; Visit Provider Nurse Practitioner Acute Care
DX: R06.02 Shortness of breath (principal)
CPT/HCPCS: 94618

== ENCOUNTER → 2020-10-09 07:55 | Outpatient (CLI) | payer MEDICARE, SELFPAY ==
[2020-08-19 12:45] VITALS: BMI 33.7
[2020-10-09 08:52] LABS: Absolute Lymphocyte Count 2.93 X10^3/uL (0.83-4.51); Absolute Neutrophil Count 6.2 X10^3/uL (2.0-7.7); Basophil# 0.09 X10^3/uL; Basophil% 0.8 % (0-1); Eosinophil# 0.22 X10^3/uL; Lymphocyte # 2.93 X10^3/ul (4.0); Lymphocyte % 26.5 % (19-41); Mean Corp Hgb Conc 33.3 g/dL (32-36); Mean Corpuscular Hgb 31.2 pg (27.0-32.0); Mean Corpuscular Volume 93.6 fL (80-94); Mean Platelet Vol. 9.3 fl (6.2-12.0); Monocyte# 1.44 X10^3/uL; NRBC Flagged by Analyzer 0 % (0-5); Neutrophil # 6.24 X10^3/uL (2.7-7.7); Neutrophil % 56.6 % (47-70); Platelet Count 313 K/mm3 (150-450); RBC Distribution Width CV 13.4 % (11.6-14.6); Red Blood Count 4.81 M/mm3 (4.6-6.2)
[2020-10-13 14:08] LABS: Cytoplasmic Ab (C-ANCA) <1:20 titer (Neg:<1:20)
[2020-10-13 17:03] LABS: Immunoglobulin E 7 IU/mL (6-495); Perinuclear Ab (P-ANCA) <1:20 titer (Neg:<1:20)
== END ==
PROVIDERS: PCP Internal Medicine; Referring Provider Nurse Practitioner Acute Care; Visit Provider Nurse Practitioner Acute Care
DX: R06.02 Shortness of breath (principal)
CPT/HCPCS: 36415; 82785; 85025; 86256

== ENCOUNTER → 2020-10-22 07:38 | Outpatient (CLI) | payer MEDICARE, SELFPAY ==
[2020-10-22 07:07] VITALS: BMI 34.8
[2020-10-22 08:11] LABS: Absolute Lymphocyte Count 2.41 X10^3/uL (0.83-4.51); Absolute Neutrophil Count 5.1 X10^3/uL (2.0-7.7); Basophil# 0.09 X10^3/uL; Eosinophil# 0.23 X10^3/uL; Eosinophils% 2.6 % (0-5); Hematocrit 43.7 % (40-54); Hemoglobin 14.5 g/dL (13.0-16.5); Lymphocyte # 2.41 X10^3/ul (4.0); Lymphocyte % 27.4 % (19-41); Mean Corp Hgb Conc 33.2 g/dL (32-36); Mean Corpuscular Hgb 31.1 pg (27.0-32.0); Mean Corpuscular Volume 93.8 fL (80-94); Mean Platelet Vol. 8.9 fl (6.2-12.0); Monocyte# 0.87 X10^3/uL; Monocyte% 9.9 % (0-10); NRBC Flagged by Analyzer 0 % (0-5); Neutrophil # 5.13 X10^3/uL (2.7-7.7); Neutrophil % 58.3 % (47-70); Platelet Count 305 K/mm3 (150-450); RBC Distribution Width CV 12.9 % (11.6-14.6); RBC Distribution Width SD 44.1 fl (35.1-43.9); Red Blood Count 4.66 M/mm3 (4.6-6.2); White Blood Count 8.8 K/mm3 (4.4-11.0)
[2020-10-26 20:06] LABS: Aspirgillus flavus Negative (Neg:<1:1); Aspirgillus fumigatus Negative (Neg:<1:1); Aspirgillus niger Negative (Neg:<1:1)
[2020-10-27 13:03] LABS: Immunoglobulin E 6 IU/mL (6-495)
== END ==
PROVIDERS: PCP Internal Medicine; Referring Provider Internal Medicine Critical Care Medicine; Visit Provider Internal Medicine Critical Care Medicine
DX: J45.909 Unspecified asthma, uncomplicated (principal); E66.9 Obesity, unspecified
CPT/HCPCS: 36415; 82785; 85025; 86606

== ENCOUNTER 2020-11-11 07:40 | Outpatient (RCR) | payer MEDICARE, SELFPAY ==
[2020-10-22 07:07] VITALS: BMI 34.8
[2020-11-11] MEDS: COVID-19 VACC, MRNA(PFIZER)/PF 30 MCG/0.3 ML SYRINGE IM (08:05)
[2020-12-02] MEDS: COVID-19 VACC, MRNA(PFIZER)/PF 30 MCG/0.3 ML SYRINGE IM (08:03)
== END 2021-02-10 23:59 ==
LOC: IMMUN 07:40
PROVIDERS: PCP Internal Medicine; Referring Provider Family Medicine; Visit Provider Family Medicine
DX: Z23 Encounter for immunization (principal)
CPT/HCPCS: 0001A; 0002A; 91300

== ENCOUNTER 2021-09-09 16:11 | Emergency (ER) | payer MEDICARE, SELFPAY ==
[2021-09-09 16:13] VITALS: BP 126/8; PULSE 95; RESP 20; TEMP 37.1; O2SAT 95; BMI 33.7
--- NOTE | 2021-09-09 16:28 | EKG12_ITS ---
Test Reason : SOB Blood Pressure : / mmHG Vent. Rate : 088 BPM Atrial Rate : 088 BPM P-R Int : 164 ms QRS Dur : 100 ms QT Int : 348 ms P-R-T Axes : 034 -25 014 degrees QTc Int : 421 ms Normal sinus rhythm Nonspecific ST abnormality Abnormal ECG incomplete Right Bundle Branch Block Confirmed by SRIDHAR HOLLAND, SIS ([id number]), proposal editor LAURA ALVARADO ([id number]) on 09/10/2021 10:53:33 AM Referred By: ZOE Confirmed By:SIS WALLER MD
[2021-09-09 17:28] LABS: Absolute Lymphocyte Count 0.82 X10^3/uL (0.83-4.51); Absolute Neutrophil Count 3.3 X10^3/uL (2.0-7.7); Anion Gap 8 (5-15); BUN 20 mg/dL (7-18); BUN/Creat Ratio 17.1 RATIO (10-20); Basophil# 0.02 X10^3/uL; Basophil% 0.4 % (0-1); Calcium,Total 8.7 mg/dL (8.5-10.1); Chloride 102 mmol/L (98-107); Creatinine, Serum 1.17 mg/dL (0.70-1.30); EST Glomerular Filtration Rate 66 mL/min (>60); Est Glom Filt Rate - Afr Amer 80 mL/min (>60); Estimated Creatinine Clearance 64.36 ml/min; Glucose 121 mg/dL (74-106); Hematocrit 49.1 % (40-54); Hemoglobin 16.7 g/dL (13.0-16.5); Lymphocyte # 0.82 X10^3/ul (0.83-4.51); Lymphocyte % 17.7 % (19-41); Mean Corpuscular Hgb 30.6 pg (27.0-32.0); Mean Corpuscular Volume 89.9 fL (80-94); Mean Platelet Vol. 9.8 fl (6.2-12.0); Monocyte# 0.46 X10^3/uL; NRBC Flagged by Analyzer 0 % (0-5); Neutrophil # 3.29 X10^3/uL (2.7-7.7); Neutrophil % 71.3 % (47-70); Platelet Count 161 K/mm3 (150-450); Potassium 4.3 mmol/L (3.5-5.1); RBC Distribution Width CV 12.8 % (11.6-14.6); RBC Distribution Width SD 42.2 fl (35.1-43.9); Red Blood Count 5.46 M/mm3 (4.6-6.2); Sodium Level 134 mmol/L (136-145); White Blood Count 4.6 K/mm3 (4.4-11.0)
[2021-09-09] MEDS: Ondansetron 4 MG/2 ML Vial IV ×2 (17:37→20:12)
--- NOTE | 2021-09-09 17:51 | RAD_ITS ---
STUDY: X-RAY CHEST REASON FOR EXAM: Male, 66 years old. CHEST PAIN SOB TECHNIQUE: XR Chest 1 View COMPARISON: 08.02.20 FINDINGS: There is no demonstrated pleural abnormality. There is bilateral infiltrate. Normal size heart. Normal mediastinum and trae. Normal visualized pulmonary arteries. There is atherosclerotic calcification of the aortic arch with tortuosity. There are diffuse degenerative changes of the visualized thoracic spine. There is degenerative osteoarthritis of the bilateral shoulders. There is no demonstrated abnormality of the visualized soft tissue structures of the upper abdomen. RAD/Chest 1 View (Portable) IMPRESSION: Bilateral pneumonia. Electronically Signed: Eliseo Barnhart MD at 18:12 EST , Service support ,
[2021-09-09 19:09] VITALS: O2SAT 95
[2021-09-09 19:12] VITALS: BP 138/89; PULSE 81; RESP 37; TEMP 39.6; O2SAT 93
--- NOTE | 2021-09-09 19:53 | EDS_ITS ---
HPI History of Present Illness Chief Complaint: General Illness Informant: patient Onset/Context/Timing Onset: Days (8) Context: Gradual Onset Timing: Continuous Quality: malaised, weak, cough, n/v Current Severity: Moderate Maximum Severity: Moderate Associated Symptoms Associated Symptoms: mild sob Associated Symptoms ED: cough Narrative Narrative: Patient is ill for the past 8 days, fever, chills, cough, now some shortness of breath. Some myalgias and diarrhea. Now vomiting yesterday and today and having trouble keeping fluids down. Has been vaccinated against Covid. Not on home oxygen. History of Crohn's. No history of DVT or PE, not anticoagulated. Denies any chest pain. Some occasional right upper quadrant discomfort that is not present right now. He has COPD and is on home oxygen 3 L. Earlier today, he was in the 80s on his 3 L. He states for the most part it was like [id number]%. [facility] Medical History (Updated 09/09/21 @ 20:[address] Pb Donovan MD) Acute bronchitis Chronic pancreatitis Crohn's disease of small intestine Dyslipidemia Gynecomazia Home Medications adalimumab 40 mg SQ Q14D 01/10/14 [History Last Taken 07/08/20 10:00] omeprazole 40 mg PO DAILY 01/10/14 [History Last Taken 07/13/20 10:00] cholestyramine (with sugar) 1 dose PO QHS 12/16/17 [History Last Taken 07/12/20 21:00] xjgnoe-qimbfydh-fowpiio 3 cap PO TIDCM 06/21/18 [History Last Taken 07/13/20 12:00] ondansetron 4 mg PO Q12H PRN PRN 09/06/19 [History Last Taken Unknown] ipratropium bromide 0.2 mg IH Q6H PRN PRN 06/18/20 [History Last Taken Unknown] albuterol sulfate 90 mcg/actuation aerosol inhaler 2 puff INHALATION Q6H PRN #1 device 12/31/20 [Rx Last Taken Unknown] azelastine 137 mcg (0.1 %) nasal spray aerosol 1 spray INTRANASAL Q12H #30 ml 12/31/20 [Rx Last Taken Unknown] fluticasone propionate 50 mcg/actuation nasal spray,suspension 1 spray INHALATION DAILY #16 g 04/28/21 [Rx Last Taken Unknown] fluticasone 500 mcg-salmeterol 50 mcg/dose blistr powdr for inhalation 1 inh INHALATION BID #60 ea 06/23/21 [Rx Last Taken Unknown] fluticasone 500 mcg-salmeterol 50 mcg/dose blistr powdr for inhalation 1 inh INHALATION BID #60 ea 06/23/21 [Rx Last Taken Unknown] prednisone 10 mg PO UD #33 tab 09/09/21 [Rx Last Taken Unknown] Allergy/AdvReac Type Severity Reaction Status Date / Time budesonide Allergy Swelling Verified 09/09/21 16:14 Family History Other No pertinent family history Surgical History Abdominal hernia History of appendectomy History of bowel resection History of cholecystectomy History of ERCP Social History Smoking Status: Former smoker Tobacco: How many years used: 2 how long ago did patient quit smokin, 1ppd second hand exposure: Yes alcohol intake: never substance use type: does not use ROS ROS ED Constitutional Constitutional ED: Reports body ache(s), chills, fatigue, fever(s), headache(s) and malaise Eyes Eyes: Denies change in vision or diplopia ENT ENT ED: Denies rhinorrhea or sore throat Cardiovascular Cardiovascular: Denies chest pain or palpitations Respiratory/Chest Respiratory/Chest: Reports cough, dyspnea and dyspnea on exertion Gastrointestinal Gastrointestinal: Reports as per HPI, abdominal pain, diarrhea, nausea and vomiting Genitourinary Genitourinary ED: Denies dysuria or hematuria Musculoskeletal Musculoskeletal: Denies back pain or neck pain Integumentary Denies abscess or rash Neurologic Neurologic: Reports headache(s); Denies paresthesias or weakness Psychiatric Psychiatric: Denies anxiety or suicidal thoughts EXAM Physical Exam Const Vital Signs: 09/09/21 16:13 09/09/21 19:09 09/09/21 19:12 Temperature 98.7 F 103.2 F H Temperature Source Temporal Oral Pulse Rate 95 81 Respiratory Rate 20 H 37 H Respiratory Effort Short of Breath Labored Respiratory Pattern Tachypnea Blood Pressure 126/8 H 138/89 H Blood Pressure Mean 47 105 Pulse Ox 95 95 93 Oxygen Delivery Method Nasal Cannula Nasal Cannula Nasal Cannula Oxygen Flow Rate (L/min) 2 3 3 Positive well nourished and well developed Constitutional Narrative: Well-appearing, no distress, conversive in full sentences General Appearance ED: well developed and NAD HEENT Reports moist mucous membranes normocephalic and atraumatic Eyes PERRL and EOMs intact bilaterally Neck full ROM, no lymphadenopathy, supple and no meningeal signs Resp normal respiratory effort and clear to auscultation bilaterally Cardio regular rate, regular rhythm and no murmurs Rate: Negative for tachycardic GI non-tender and non-distended Auscultation: normoactive bowel sounds Palpation: soft Back/Spine no CVA tenderness General Back: other FROM Extremity normal to inspection General Extremety ED: Negative for edema, pulses abnormal or tenderness General Extremity: Negative for edema or pulses abnormal Neuro oriented x3, CN's II-XII intact bilaterally and no sensory deficits noted Sensorium / Orientation: awake and alert Motor Exam: strength 5/5 throughout Skin no rashes or lesions noted and no wounds MDM MDM MDM Narrative Medical decision making narrative: Patient's testing is positive for Covid. He has mild prerenal azotemia for which she was given IV fluids in addition to Zofran, Tylenol for his fever, and started on steroids for his COPD. He is doing well on his home 3 L of oxygen right now. Given that, he meets criteria for monoclonal about infusion therapy which is ordered, referred. At this time I think he is stable for discharge home. He does have Covid pneumonia but with oxygenating well, no need for admission at this time. Given appropriate instructions to watch his O2 levels. Lab Data Attestation: I reviewed the patient's lab results. Labs: Laboratory Results - last 24 hr 09/09/21 09/09/21 17:10 17:10 WBC 4.6 RBC 5.46 Hgb 16.7 H Hct 49.1 MCV 89.9 MCH 30.6 MCHC 34.0 RDW Std Deviation 42.2 RDW Coeff of Zachary 12.8 Plt Count 161 MPV 9.8 Immature Gran % (Auto) 0.600 Neut % (Auto) 71.3 H Lymph % (Auto) 17.7 L [place] % (Auto) 10.0 Eos % (Auto) 0.0 Baso % (Auto) 0.4 Absolute Neuts (auto) 3.3 Absolute Lymphs (auto) 0.82 L Nucleated RBC % 0 Sodium 134 L Potassium 4.3 Chloride 102 Carbon Dioxide 24.0 Anion Gap 8 BUN 20 H Creatinine 1.17 Estim Creat Clear Calc 64.36 Est GFR (MDRD) Af Amer 80 Est GFR (MDRD) Non-Af 66 BUN/Creatinine Ratio 17.1 Glucose 121 H Calcium 8.7 Radiography Diagnostic Testing: Clinical Impression(s) from Imaging Studies Chest X-Ray 09/09/21 17:51 IMPRESSION: Bilateral pneumonia. Electronically Signed: Eliseo Barnhart MD at 18:12 EST , Service support , EKG Initial EKG: Attestation: I personally reviewed and interpreted this EKG as follows: Interpretation: Sinus Rhythm and No Acute Injury Pattern Comments: No [id number]. Artifact, otherwise. Normal EKG. Prior EKG tracings: available for review Prior: Unchanged Discharge Plan Triage Chief Complaint: General Illness ED Provider: Pb Donovan Dx/Rx/DC Orders Clinical Impression: Pneumonia due to COVID-19 virus Instructions: Coronavirus Disease 2019 (COVID-19): Caring for Yourself or Others, ED - COVID Monoclonal AB Infusion ... Prescriptions: New prednisone 10 MG tablet 10 mg PO UD Qty: 33 RF: 0 No Action omeprazole 40 MG capsule 40 mg PO DAILY RF: 0 adalimumab 20 MG/0.4 ML syringe kit 40 mg SQ Q14D RF: 0 cholestyramine (with sugar) 4 powder 1 dose PO QHS RF: 0 ncifil-rmwnaywq-aqugnal 1 CAPSULE capsule 3 cap PO TIDCM RF: 0 ondansetron 4 MG tablet 4 mg PO Q12H PRN PRN (Reason: Nausea) RF: 0 ipratropium bromide 0.2 MG/ML solution 0.2 mg IH Q6H PRN PRN (Reason: Shortness Of Breath) RF: 0 albuterol sulfate [Ventolin HFA] 90 mcg/actuation HFA aerosol inhaler 2 puff INHALATION Q6H PRN (Reason: shortness of breath or wheezing) Qty: 1 RF: 6 azelastine 137 mcg (0.1 %) aerosol,spray 1 spray INTRANASAL Q12H Qty: 30 RF: 6 fluticasone propionate 50 mcg/actuation spray,suspension 1 spray INHALATION DAILY Qty: 16 RF: 6 fluticasone propion-salmeterol [Advair Diskus] 500-50 mcg/dose blister with device 1 inh INHALATION BID Qty: 60 RF: 6 fluticasone propion-salmeterol [Advair Diskus] 500-50 mcg/dose blister with device 1 inh INHALATION BID Qty: 60 RF: 6 Primary Care Provider: Shante Castro Referrals: Shante Castro MD [Primary Care Provider] - As Needed Activity Restrictions/Additional Instructions: Try to get a home portable pulse oximeter and closely watch your oxygen levels periodically. If you stay below 90% for more than a minute or so, and/or you are feeling like your breathing is getting worse, return to the emergency department for further evaluation. You are a candidate for monoclonal antibody infusion therapy, see the attached instructions for more information. They will call you concerning when they want you to come to the clinic to get the infusion which is a one-time dose to help protect you from getting more ill and becoming hospitalized with life- threatening illness due to Covid given your risk for worsening. Disposition Disposition: Home, Self Care
[2021-09-09] MEDS: MethylPREDNISolone 125 MG/2 ML Vial IV (20:12)
[2021-09-09] MEDS: Acetaminophen 500 MG Tablet 1000 MG PO (20:12)
[2021-09-09 20:15] VITALS: BP 119/64; PULSE 83; RESP 36; TEMP 39.7; O2SAT 98
[2021-09-09 20:30] VITALS: BP 128/75; PULSE 84; RESP 39; O2SAT 100
== END 2021-09-09 20:36 | disposition home or self-care (01) ==
LOC: ED 20:26
PROVIDERS: Emergency Provider Emergency Medicine; PCP Internal Medicine; Visit Provider Emergency Medicine
DX: U07.1 COVID-19 (principal); J44.0 Chronic obstructive pulmonary disease with (acute) lower respiratory infection; K50.00 Crohn's disease of small intestine without complications; J12.82 Pneumonia due to coronavirus disease 2019; Z87.891 Personal history of nicotine dependence; E78.5 Hyperlipidemia, unspecified; Z79.899 Other long term (current) drug therapy; Z87.19 Personal history of other diseases of the digestive system
CPT/HCPCS: 94760; 96374; 96375; 96376; 99282; 71045; 80048; 85025; 87426; 93005; J7030; A4216; J2405

== ENCOUNTER 2021-09-10 10:37 | Outpatient (CLI) | payer MEDICARE, SELFPAY ==
[2021-09-10 10:45] VITALS: BP 118/77; PULSE 69; RESP 16; TEMP 36.6; O2SAT 97; BMI 33.5
[2021-09-10] MEDS: 0.9% Saline Lock 10 ML Syringe IV (11:17)
[2021-09-10 11:42] VITALS: BP 96/70; PULSE 54; RESP 16; TEMP 36.7; O2SAT 97
[2021-09-10 12:42] VITALS: BP 137/78; PULSE 69; RESP 18; TEMP 36.8; O2SAT 92
== END 2021-09-10 23:59 | disposition home or self-care (01) ==
LOC: MS3OUT 10:39 → MS3 10:39
PROVIDERS: PCP Internal Medicine; Referring Provider Emergency Medicine; Visit Provider Emergency Medicine
DX: Z23 Encounter for immunization (principal); U07.1 COVID-19
CPT/HCPCS: J7050; M0243; A4216; Q0244

== ENCOUNTER 2021-09-11 11:02 | Inpatient (IN) | payer MEDICARE, SELFPAY ==
[2021-09-11] VITALS (24 sets, daily range): BP systolic 102–138; BP diastolic 50–89; PULSE 75–89; RESP 12–40; TEMP 35.4–37.7; O2SAT 10–99; BMI 33.8; BMI 32.6
--- NOTE | 2021-09-11 11:10 | ED.RN ---
Patient states on 3lpm normally for COPD, increased to 4lpm due to low oxygen levels with COVID-19. Also received monoclonal antibody therapy on 09/10/2021.
--- NOTE | 2021-09-11 11:18 | EKG12_ITS ---
Test Reason : SOB Blood Pressure : / mmHG Vent. Rate : 080 BPM Atrial Rate : 080 BPM P-R Int : 160 ms QRS Dur : 110 ms QT Int : 390 ms P-R-T Axes : 026 -13 009 degrees QTc Int : 449 ms Normal sinus rhythm Incomplete right bundle branch block Nonspecific ST and T wave abnormality Abnormal ECG Confirmed by SRIDHAR HOLLAND, SIS ([id number]), department editor JORGE DELACRUZ ([id number]) on 09/16/2021 11:15:22 AM Referred By: PEBBLES/TIBURCIO Confirmed By:SIS WALLER MD
[2021-09-11] MEDS: Ipratropium/Albuterol Sulfate 3 ML AMPUL.NEB INHALATION (11:27)
--- NOTE | 2021-09-11 12:05 | ED.VIS.DYS ---
HPI History of Present Illness Chief Complaint: Shortness of Breath Informant: patient Narrative Narrative: Patient presents with worsening dyspnea. He is approximately day 10 of Covid. He was seen here just couple days ago. He is on prednisone. He also had monoclonal antibody therapy yesterday. He states he is feeling his just getting slowly worse. His biggest complaint is the dyspnea. He is on 3 L at home routinely for COPD. He is a non-smoker. He is able to check his oxygen levels. He had levels at 68%. He came back in with worsening dyspnea. No chest pain. Appetite is down. He does have some myalgias. Activity makes symptoms worse and oxygen and rest makes it better. [facility] Medical History (Updated 09/11/21 @ 13:[address] Stan Lopez MD) Acute bronchitis Chronic pancreatitis Crohn's disease of small intestine Dyslipidemia Gynecomazia Home Medications adalimumab 40 mg SQ Q14D 01/10/14 [History Last Taken 07/08/20 10:00] omeprazole 40 mg PO DAILY 01/10/14 [History Last Taken 07/13/20 10:00] cholestyramine (with sugar) 1 dose PO QHS 12/16/17 [History Last Taken 07/12/20 21:00] hefhbz-tyakgpuj-qfdktup 3 cap PO TIDCM 06/21/18 [History Last Taken 07/13/20 12:00] ondansetron 4 mg PO Q12H PRN PRN 09/06/19 [History Last Taken Unknown] ipratropium bromide 0.2 mg IH Q6H PRN PRN 06/18/20 [History Last Taken Unknown] albuterol sulfate 90 mcg/actuation aerosol inhaler 2 puff INHALATION Q6H PRN #1 device 12/31/20 [Rx Last Taken Unknown] azelastine 137 mcg (0.1 %) nasal spray aerosol 1 spray INTRANASAL Q12H #30 ml 12/31/20 [Rx Last Taken Unknown] fluticasone propionate 50 mcg/actuation nasal spray,suspension 1 spray INHALATION DAILY #16 g 12/31/20 [Rx Last Taken Unknown] fluticasone 500 mcg-salmeterol 50 mcg/dose blistr powdr for inhalation 1 inh INHALATION BID #60 ea 06/23/21 [Rx Last Taken Unknown] fluticasone 500 mcg-salmeterol 50 mcg/dose blistr powdr for inhalation 1 inh INHALATION BID #60 ea 06/23/21 [Rx Last Taken Unknown] prednisone 10 mg PO UD #33 tab 09/09/21 [Rx Last Taken Unknown] Allergy/AdvReac Type Severity Reaction Status Date / Time budesonide Allergy Swelling Verified 09/09/21 16:14 Family History Other No pertinent family history Surgical History Abdominal hernia History of appendectomy History of bowel resection History of cholecystectomy History of ERCP Social History Smoking Status: Former smoker Tobacco: How many years used: 2 how long ago did patient quit smokin, 1ppd second hand exposure: Yes alcohol intake: never substance use type: does not use ROS ROS ED Constitutional Constitutional ED: Reports chills and fever(s) Eyes Eyes: Denies blurry vision ENT ENT ED: Reports rhinorrhea and sore throat Cardiovascular Cardiovascular: Denies chest pain Respiratory/Chest Respiratory/Chest: Reports cough and dyspnea Gastrointestinal Gastrointestinal: Reports diarrhea and nausea; Denies abdominal pain or vomiting Genitourinary Genitourinary ED: Denies dysuria Musculoskeletal Musculoskeletal: Reports myalgias Integumentary Denies rash Neurologic Neurologic: Denies headache(s) or weakness Endocrine Endocrinology: Denies polydipsia or polyuria Hematologic/Lymphatic Hematologic/Lymphatic: Denies easy bleeding or easy bruising Allergic/Immunologic Allergic/Immunologic ED: Denies urticaria EXAM Physical Exam Const Vital Signs: 09/11/21 11:03 09/11/21 11:05 09/11/21 11:08 Temperature 95.7 F L Temperature Source Temporal Pulse Rate 89 Respiratory Rate 28 H Respiratory Effort Short of Breath Respiratory Pattern Tachypnea Blood Pressure 125/75 H Blood Pressure Mean 91 Pulse Ox 89 89 Oxygen Delivery Method Nasal Cannula Nasal Cannula Nasal Cannula Oxygen Flow Rate (L/min) 6 6 09/11/21 11:11 09/11/21 11:16 09/11/21 11:27 Temperature 96.9 F L Temperature Source Temporal Pulse Rate 85 87 Respiratory Rate 34 H 24 H Respiratory Effort Respiratory Pattern Blood Pressure 125/75 H Blood Pressure Mean 91 Pulse Ox 91 97 Oxygen Delivery Method Nasal Cannula High Flow Oxygen Flow Rate (L/min) 6 8 09/11/21 12:23 Temperature 96.4 F L Temperature Source Temporal Pulse Rate 80 Respiratory Rate 40 H Respiratory Effort Respiratory Pattern Blood Pressure 102/50 L Blood Pressure Mean 67 Pulse Ox 93 Oxygen Delivery Method High Flow Oxygen Flow Rate (L/min) 7 Patient appears to have some mild dyspnea. Positive well nourished, well developed and obese General Appearance ED: well developed Nutritional Appearance: obese HEENT atraumatic; Negative for trauma Eyes PERRL Neck supple Resp No clear to auscultation bilaterally Effort and Inspection: Negative for pain with movement Auscultation: rhonchi; Negative for rales, wheezes or diminished lung sounds Cardio regular rhythm GI non-tender and non-distended Palpation: soft Back/Spine normal to inspection Extremity normal to inspection Neuro oriented x3 Sensorium / Orientation: alert, oriented to person and oriented to place; Negative for orientation impaired Psych mental status grossly normal Skin Rashes: no rashes MDM MDM MDM Narrative Medical decision making narrative: Patient's labs do show an elevated white count. Some of this is likely due to some dehydration. He is also on steroids and has been for several days. BNP was normal. D-dimer was normal. Lactic acid was elevated 2.3. This is likely due to to some intermittent hypoxia. X-ray is consistent with Covid. This patient has had steroids, monoclonal therapy, and had immunizations. He is still having high needs for oxygen. These are too high to go home with. He is on 8 L high flow with saturations in the low to mid 90s now. He is feeling better. I have hospitalist on page about admission. His saturations were good the other day when he was here but he has worsened. Lab Data Attestation: I reviewed the patient's lab results. Labs: Laboratory Results - last 24 hr 09/11/21 09/11/21 09/11/21 11:50 11:50 11:50 WBC 15.3 H RBC 5.38 Hgb 16.4 Hct 48.4 MCV 90.0 MCH 30.5 MCHC 33.9 RDW Std Deviation 42.7 RDW Coeff of Zachary 12.9 Plt Count 253 MPV 9.5 Immature Gran % (Auto) 0.800 Neut % (Auto) 83.7 H Lymph % (Auto) 7.3 L [place] % (Auto) 8.0 Eos % (Auto) 0.0 Baso % (Auto) 0.2 Absolute Neuts (auto) 12.8 H Absolute Lymphs (auto) 1.12 Nucleated RBC % 0 D-Dimer Quant (PE/DVT) 0.44 Sodium Potassium Chloride Carbon Dioxide Anion Gap BUN Creatinine Estim Creat Clear Calc Est GFR (MDRD) Af Amer Est GFR (MDRD) Non-Af BUN/Creatinine Ratio Glucose Lactic Acid Calcium Total Bilirubin AST ALT Alkaline Phosphatase Troponin I High Sens B-Natriuretic Peptide 45.8 Total Protein Albumin Globulin Albumin/Globulin Ratio 09/11/21 09/11/21 11:50 11:50 WBC RBC Hgb Hct MCV MCH MCHC RDW Std Deviation RDW Coeff of Zachary Plt Count MPV Immature Gran % (Auto) Neut % (Auto) Lymph % (Auto) [place] % (Auto) Eos % (Auto) Baso % (Auto) Absolute Neuts (auto) Absolute Lymphs (auto) Nucleated RBC % D-Dimer Quant (PE/DVT) Sodium 139 Potassium 4.0 Chloride 105 Carbon Dioxide 26.0 Anion Gap 8 BUN 24 H Creatinine 1.11 Estim Creat Clear Calc 67.84 Est GFR (MDRD) Af Amer 85 Est GFR (MDRD) Non-Af 70 BUN/Creatinine Ratio 21.6 H Glucose 121 H Lactic Acid 2.3 H* Calcium 9.0 Total Bilirubin 0.80 AST 108 H ALT 76 H Alkaline Phosphatase 99 Troponin I High Sens 14 B-Natriuretic Peptide Total Protein 7.9 Albumin 3.0 L Globulin 4.9 H Albumin/Globulin Ratio 0.6 L Radiography Diagnostic Testing: Clinical Impression(s) from Imaging Studies Chest X-Ray 09/11/21 12:08 IMPRESSION: Progressive bilateral pulmonary infiltrates in the preferential peripheral distribution. Pneumonitis associated with Covid should be ruled out. Electronically Signed: Ike Metcalf MD at 12:28 EST , Service support , EKG Initial EKG: Comments: EKG done for dyspnea read by me shows normal sinus rhythm with a rate of 80. There is some diffuse nonspecific ST changes and baseline variations. No sign of infarct. Troponin will be sent. MD interval QRS duration and QTc are normal. This is similar to 09 September of this year but there is a little bit more baseline variation mostly laterally. Discharge Plan Dx/Rx/DC Orders Clinical Impression: Pneumonia due to COVID-19 virus, Respiratory failure with hypoxia Disposition Disposition: Acute Care Hospital [facility]
[2021-09-11 12:08] LABS: Absolute Lymphocyte Count 1.12 X10^3/uL (0.83-4.51); Absolute Neutrophil Count 12.8 X10^3/uL (2.0-7.7); Basophil# 0.03 X10^3/uL; Basophil% 0.2 % (0-1); Hematocrit 48.4 % (40-54); Hemoglobin 16.4 g/dL (13.0-16.5); Lymphocyte # 1.12 X10^3/ul (0.83-4.51); Lymphocyte % 7.3 % (19-41); Mean Corp Hgb Conc 33.9 g/dL (32-36); Mean Corpuscular Hgb 30.5 pg (27.0-32.0); Mean Platelet Vol. 9.5 fl (6.2-12.0); Monocyte# 1.22 X10^3/uL; NRBC Flagged by Analyzer 0 % (0-5); Neutrophil % 83.7 % (47-70); Platelet Count 253 K/mm3 (150-450); RBC Distribution Width CV 12.9 % (11.6-14.6); RBC Distribution Width SD 42.7 fl (35.1-43.9); Red Blood Count 5.38 M/mm3 (4.6-6.2); White Blood Count 15.3 K/mm3 (4.4-11.0)
--- NOTE | 2021-09-11 12:08 | RAD_ITS ---
STUDY: X-RAY CHEST REASON FOR EXAM: Male, 66 years old. SOB TECHNIQUE: Single AP portable view of the chest. COMPARISON: Comparison is made with prior study dated 09/09/2021. FINDINGS: EKG electrodes are seen. Since prior study, there has been progressive bilateral pulmonary infiltrates in the preferential peripheral distribution. Pneumonitis associated with Covid should be ruled out. There is no demonstrated pleural abnormality. Normal size heart. Normal mediastinum and trae. Normal visualized pulmonary arteries. Normal visualized aortic arch and descending thoracic aorta. There are diffuse degenerative changes of the visualized thoracic spine. Normal visualized ribs, clavicles, and shoulders. There is no demonstrated abnormality of the visualized soft tissue structures of the upper abdomen. RAD/Chest 1 View (Portable) IMPRESSION: Progressive bilateral pulmonary infiltrates in the preferential peripheral distribution. Pneumonitis associated with Covid should be ruled out. Electronically Signed: Ike Metcalf MD at 12:28 EST , Service support ,
[2021-09-11 12:14] LABS: D-Dimer Quantitative (DVT/PE) 0.44 FEU/ug/m (0.27-0.49)
[2021-09-11 12:27] LABS: BNP,B-Type NATRIURETIC PEPTIDE 45.8 pg/mL (0-100)
[2021-09-11 12:29] LABS: ALB/GLOB Ratio 0.6 RATIO (0.9-2.4); AST(SGOT) 108 U/L (15-37); Alanine Aminotransfer ALT/SGPT 76 U/L (16-61); Alkaline Phosphatase 99 U/L (45-117); Anion Gap 8 (5-15); BUN 24 mg/dL (7-18); BUN/Creat Ratio 21.6 RATIO (10-20); Chloride 105 mmol/L (98-107); Creatinine, Serum 1.11 mg/dL (0.70-1.30); EST Glomerular Filtration Rate 70 mL/min (>60); Est Glom Filt Rate - Afr Amer 85 mL/min (>60); Estimated Creatinine Clearance 67.84 ml/min; Globulin 4.9 g/dL (2.2-4.2); Glucose 121 mg/dL (74-106); Protein, Total 7.9 g/dL (6.4-8.2); Sodium Level 139 mmol/L (136-145); Troponin-I HS 14 pg/mL (3.0-78.0)
[2021-09-11 12:31] LABS: Lactic Acid 2.3 mmol/L (0.4-1.9)
--- NOTE | 2021-09-11 13:14 | HP.PCM.HOS_ITS ---
HPI - General General Date of Admission: 09/11/21 Date of Service: 09/11/21 Chief Complaint: COVID +, worsening dyspnea and hypoxia. HPI Narrative The patient is a 66 y/o M w/ PMHx: Obesity, Crohn's disease s/p bowel resection, HLD, Chronic COPD/Asthma w/ Chronic Hypoxic Respiratory Failure (3L NC), GERD, Chronic pancreatitis who presents to the [facility] ED on 09/11/21 with history of COVID + status 09/09/21 with initial symptom onset 09/01/2021 with progressively worsening fever, chills, frontal headaches, sore throat, decreased sense of tas te and smell, body aches, nausea, occasional rare emesis, occasional loose stool which is improved, fatigue, weakness, dizziness, cough, dyspnea with ED evaluation on 09/09/21 with prednisone initiation at that time and monoclonal antibody treatment 09/10/20 and patient reported Pfizer vaccination x 2 but no booster as he had called several places and been delayed on receiving it, notably worsening over the last 24 hours, reporting 68% on his home 3L NC with worsening dyspnea. Patient notes that his is also ill with COVID at home but certainly doing better than he is. He notes that he delayed his presentation to the ED for evaluation as he was caring for her. Work-up in the ED included T 95.7 Heart rate 89, BP 125/75, respiratory rate 28, 89% on room air initially worsening with transition to 6 L and still remained 89% on room air eventually transitioning to high flow at 7 L with 93% oxygenation; however patient worsened continuously and discussed with RT transition to BiPAP which she is being instituted, CBC with WBC 15.3, hemoglobin 16.4, platelet 253 with left shift, D-dimer 0.44, CMP with BUN/creatinine 24/1.11, glucose 121, lactic acid 2.3, AST/ALT 108/76, high-sensitivity cardiac troponin 14, BNP 45.8, chest x-ray with progressive bilateral pulmonary infiltrates in the peripheral distribution consistent with COVID pneumonitis/pneumonia. In the ED patient ministered IV Decadron. As noted discussed patient with respiratory therapy as worsening hypoxia during evaluation prompting transition to BiPAP for transport. [facility]LY [facility], [facility] Medical History (Updated 09/11/21 @ 13:[address] Lola Bennett MD) Acute bronchitis Chronic pancreatitis Crohn's disease of small intestine Dyslipidemia Gynecomazia Home Medications adalimumab 40 mg SQ Q14D 01/10/14 [History Last Taken 07/08/20 10:00] omeprazole 40 mg PO DAILY 01/10/14 [History Last Taken 07/13/20 10:00] cholestyramine (with sugar) 1 dose PO QHS 12/16/17 [History Last Taken 07/12/20 21:00] sxpbhd-tuglbqvm-luhxphv 3 cap PO TIDCM 06/21/18 [History Last Taken 07/13/20 12:00] ondansetron 4 mg PO Q12H PRN PRN 09/06/19 [History Last Taken Unknown] ipratropium bromide 0.2 mg IH Q6H PRN PRN 06/18/20 [History Last Taken Unknown] albuterol sulfate 90 mcg/actuation aerosol inhaler 2 puff INHALATION Q6H PRN #1 device 12/31/20 [Rx Last Taken Unknown] azelastine 137 mcg (0.1 %) nasal spray aerosol 1 spray INTRANASAL Q12H #30 ml 12/31/20 [Rx Last Taken Unknown] fluticasone propionate 50 mcg/actuation nasal spray,suspension 1 spray INHALATION DAILY #16 g 12/31/20 [Rx Last Taken Unknown] fluticasone 500 mcg-salmeterol 50 mcg/dose blistr powdr for inhalation 1 inh INHALATION BID #60 ea 06/23/21 [Rx Last Taken Unknown] fluticasone 500 mcg-salmeterol 50 mcg/dose blistr powdr for inhalation 1 inh INHALATION BID #60 ea 06/23/21 [Rx Last Taken Unknown] prednisone 10 mg PO UD #33 tab 09/09/21 [Rx Last Taken Unknown] Allergy/AdvReac Type Severity Reaction Status Date / Time budesonide Allergy Swelling Verified 09/09/21 16:14 Family History (Updated 09/11/21 @ 13:[address] Lola Bennett MD) Mother Heart disease Father Cancer Hx lung cancer, concurrent tobacco use history. Surgical History Abdominal hernia History of appendectomy History of bowel resection History of cholecystectomy History of ERCP Social History (Updated 09/11/21 @ 13:[address] Lola Bennett MD) household members: spouse Smoking Status: Former smoker Tobacco: How many years used: 2 how long ago did patient quit smoking: Quit 1974, prior smoked 1ppd since teen. second hand exposure: Yes alcohol intake: never substance use type: does not use ROS ROS Narrative Admission Review of Systems: CONSTITUTIONAL: No weight loss, + fever, chills, weakness or fatigue. HEENT: + Headache, altered sense of taste and smell, sore throat. Eyes: No visual loss, blurred vision, double vision or yellow sclerae. Ears, Nose, Throat: No hearing loss, sneezing. SKIN: No rash or itching, lesions, wounds. CARDIOVASCULAR: No chest pain, chest pressure or chest discomfort, palpitations, edema, orthopnea, syncopal events. RESPIRATORY: + shortness of breath, cough, No marked sputum, wheezing, hemoptysis. GASTROINTESTINAL: + anorexia, nausea, vomiting, diarrhea, No abdominal pain, melena, BRBPR. GENITOURINARY: No dysuria, frequency, urgency or retention. NEUROLOGICAL: + headache, dizziness, No syncope, paralysis, ataxia, numbness or tingling in the extremities, focal weakness, change in bowel or bladder control, seizure. MUSCULOSKELETAL: + muscle, back pain, joint pain or stiffness. HEMATOLOGIC: No anemia, bleeding or bruising. LYMPHATICS: No enlarged nodes. No history of splenectomy. PSYCHIATRIC: No history of depression or anxiety. ENDOCRINOLOGIC: + reports of sweating, cold or heat intolerance. No polyuria or polydipsia. ALLERGIES: No history of asthma, hives, eczema or rhinitis. Vital Signs Vital Signs Vital Signs: 09/11/21 11:03 09/11/21 11:05 09/11/21 11:08 Temperature 95.7 F L Temperature Source Temporal Pulse Rate 89 Respiratory Rate 28 H Respiratory Effort Short of Breath Respiratory Pattern Tachypnea Blood Pressure 125/75 H Blood Pressure Mean 91 Pulse Ox 89 89 Oxygen Delivery Method Nasal Cannula Nasal Cannula Nasal Cannula Oxygen Flow Rate (L/min) 6 6 09/11/21 11:11 09/11/21 11:16 09/11/21 11:27 Temperature 96.9 F L Temperature Source Temporal Pulse Rate 85 87 Respiratory Rate 34 H 24 H Respiratory Effort Respiratory Pattern Blood Pressure 125/75 H Blood Pressure Mean 91 Pulse Ox 91 97 Oxygen Delivery Method Nasal Cannula High Flow Oxygen Flow Rate (L/min) 6 8 09/11/21 12:23 Temperature 96.4 F L Temperature Source Temporal Pulse Rate 80 Respiratory Rate 40 H Respiratory Effort Respiratory Pattern Blood Pressure 102/50 L Blood Pressure Mean 67 Pulse Ox 93 Oxygen Delivery Method High Flow Oxygen Flow Rate (L/min) 7 Weight Weight: 242 lb 8.136 oz Body Mass Index (BMI) 33.8 Physical Exam Narrative Physical Examination: General: Awake, alert, oriented x 3 and cooperative, seated upright in the ED bed, fatigued and ill-appearing, evidence of respiratory distress with increased respiratory rate, accessory muscle usage, conversational dyspnea, requesting BiPAP start. Skin: Normal color, normal turgor, no icterus, no cyanosis. HEENT: AT/NC, EOMI, PERRLA, dry MM, no carotid bruits or JVD noted. Lungs: Diffusely diminished, greater bases, increased respiratory rate, accessory muscle usage evident, respiratory distress evident with BiPAP requested, no rales, ronchi or wheezing. Heart: Regular rate with regular rhythm; no gallop, rub audible. Abdomen: Soft, obese, NTTP, distant mildly hyperactive bowel sounds, no obvious HSM. Extremities: No cyanosis, no clubbing, mild bilateral ankle to distal simpson nonpitting edema. Neurological: Patient awake, alert, oriented as noted, cognitive function intact; pupils equally reactive to light and accommodation, cranial nerves II- XII grossly normal, moving all 4 extremities, no focal deficits, strength severely globally decreased secondary to acute presentation. Psychiatric: Affect appears fatigued, ill-appearing, evidence of respiratory failure, no acute evidence of depressive or anxiety feelings. Results Lab / Micro Data Result Diagrams: 09/11/21 11:50 09/11/21 11:50 Labs: Laboratory Results - last 24 hr 09/11/21 11:50: WBC 15.3 H, RBC 5.38, Hgb 16.4, Hct 48.4, MCV 90.0, MCH 30.5, MCHC 33.9, RDW Std Deviation 42.7, RDW Coeff of Zachary 12.9, Plt Count 253, MPV 9.5, Immature Gran % (Auto) 0.800, Neut % (Auto) 83.7 H, Lymph % (Auto) 7.3 L, [place] % (Auto) 8.0, Eos % (Auto) 0.0, Baso % (Auto) 0.2, Absolute Neuts (auto) 12.8 H, Absolute Lymphs (auto) 1.12, Nucleated RBC % 0 09/11/21 11:50: D-Dimer Quant (PE/DVT) 0.44 09/11/21 11:50: B-Natriuretic Peptide 45.8 09/11/21 11:50: Sodium 139, Potassium 4.0, Chloride 105, Carbon Dioxide 26.0, Anion Gap 8, BUN 24 H, Creatinine 1.11, Estim Creat Clear Calc 67.84, Est GFR (MDRD) Af Amer 85, Est GFR (MDRD) Non-Af 70, BUN/Creatinine Ratio 21.6 H, Glucose 121 H, Calcium 9.0, Total Bilirubin 0.80, AST 108 H, ALT 76 H, Alkaline Phosphatase 99, Troponin I High Sens 14, Total Protein 7.9, Albumin 3.0 L, Globulin 4.9 H, Albumin/Globulin Ratio 0.6 L 09/11/21 11:50: Lactic Acid 2.3 H* Radiology Impression Chest X-Ray 09/11/21 12:08 IMPRESSION: Progressive bilateral pulmonary infiltrates in the preferential peripheral distribution. Pneumonitis associated with Covid should be ruled out. Electronically Signed: Ike Metcalf MD at 12:28 EST , Service support , Assessment & Plan Assessment/Plan (1) Pneumonia due to COVID-19 virus: (2) Respiratory failure with hypoxia: QUALIFIERS: Chronicity: acute on chronic Qualified Code(s): J96.21 - Acute and chronic respiratory failure with hypoxia PLAN: The patient is a 66 y/o M w/ PMHx: Obesity, Crohn's disease s/p bowel resection, HLD, Chronic COPD/Asthma w/ Chronic Hypoxic Respiratory Failure (3L NC), GERD, Chronic pancreatitis who presents to the [facility] ED on 09/11/21 with history of COVID + status 09/09/21 with initial symptom onset 09/01/2021 with progressively worsening fever, chills, frontal headaches, sore throat, decreased sense of taste and smell, body aches, nausea, occasional rare emesis, occasional loose stool which is improved, fatigue, weakness, dizziness, cough, dyspnea with ED evaluation on 09/09/21 with prednisone initiation at that time and monoclonal antibody treatment 09/10/20 and patient reported Pfizer vaccination x 2 but no booster as he had called several places and been delayed on receiving it, notably worsening over the last 24 hours, reporting 68% on his home 3L NC with worsening dyspnea. #1. Acute Hypoxic Respiratory Failure on Chronic secondary to Acute Bilateral Pneumonia secondary to Acute Viral Syndrome, COVID-19: Will admit to the PCU, maintain on COVID precautions, will maintain on high flow with wean as tolerated to room air, PRN albuterol, HOB, IS parameters w/ pending sputum cultures, respiratory viral panel deferred as not available, obtain urine antigens, will obtain procalcitonin, CRP, CPK, Ferritin, LDH, continue supportive care including q 2 hour turning including prone given no prone bed availability and judicious hydration, closely monitor for worsening status for ARDS and multiorgan failure, will initiate and continue IV decadron x 10 doses, given presentation will also initiate IV remdesivir but defer to discretion of Infectious disease. Given patient need for transition following evaluation to Airvo/BiPAP we will consult infectious disease for initiation of barcitinib. #2. Lactic acidosis: Likely secondary to acute presentation #1, secondary to hypoxia acutely, will continue treatment as noted above and trend LA per facility protocol. #3. Chronic COPD/Asthma: Will maintain on oxygen with wean as tolerated to home oxygen supplementation as noted above, continue home inhalers, PRN albuterol, HOB, IS parameters. #4. Crohn's disease: s/p bowel resection, will hold patient adalimumab given acute presentation. #5. Chronic pancreatitis: Will continue home cholestyramine and creon regimen. #6. Obesity: Weight loss and lifestyle changes encouraged. #7. Former tobacco usage: Encourage continued tobacco cessation #8. GERD: Continue home PPI. #9. DVT prophylaxis: SCDs, lovenox. #10. CODE status: Patient does not have healthcare power of order analyst nor living will in place. Given presentation with COVID-pneumonia with acute hypoxic respiratory failure, discussed CODE status at length including difference between FULL code, DNR-CCA and DNR-CC status. Following discussions about the differences in these status, requested Full Code status. Amenable to airvo, BIPAP, remdesivir and barcitinib treatments. Advanced Care Planning Face to Face Time: 16 minutes. Charges/Coding Visit Charges Inpatient E&M: 53472 Init Hosp L3 Procedures Hospitalists Procedures: 18125 Advncd Care Plan 30 Min
[2021-09-11] MEDS: dexAMETHasone 4 MG/ML Vial 6 MG IV (13:28)
--- NOTE | 2021-09-11 13:46 | ED.RN ---
Pt. tachypneic rate of 50, helped to slow breathing to help with work of breathing. Respiratory called due to oxygen saturation levels in mid 80's on 10L HFNC
[2021-09-11 13:53] LABS: Ferritin 1074 ng/mL (26-388); LDH 456 U/L (87-241)
[2021-09-11 13:59] LABS: Procalcitonin 0.15 ng/mL (0.00-0.09)
[2021-09-11 15:58] LABS: Reflex Lactate? Y
--- NOTE | 2021-09-11 16:13 | CASEMGMT ---
AMANDA DEY ASSESSMENT Pt currently on BIPAP. AMANDA DEY placed call to pt's for initial transition planning/care coordination assessment. AMANDA DEY introduced self and role at [facility]. agreeable to talking w/AMANDA DEY and answering questions at this time. Care providers, pharmacy, and demographics verified/updated at this time. COVID +. Tested PCP: Dr Castro Specialists:Dr Kim--pulmonology, Dr Patel--GI Preferred [facility]acy: [facility] Insurance: [facility] Prescription Benefit: Yes Living Will/HPOA: Pt does not currently have LW/HCPOA LNOK: , Jill. They have 4 adult children and she states they live about an hour away. Youngest is son, Oli Sanchez Jr. Living Arrangements: Lives w/ in one-story home w/2 steps to enter. Pt independent prior to admission. Pt and share home mgmt tasks. states she tested + for COVID a couple of days before pt was +. She states she was really ill for about a week and was passing out @ home, but she did not go to see a doctor. She states she is getting better and no longer passing out. Her pulse ox has been maintaining 95-96% RA. AMANDA DEY educated pt on importance of coming to ED if her symptoms worsen or if she feels like she is going to pass out again. She voices understanding. She states they have a judaism family that is very supportive and have been bringing them food. Transportation: Pt and DME: Pt has the following DME: nebulizer, pulse ox, and O2 thru [employer]. states pt was on 3 l/m but was just increased to 4l/m continuously a couple of days ago by ED [place] [facility] [place]Gh[place]al who states they did not receive new O2 orders recently and current O2 orders they have is for 2 l/m PRN and 3l/m @ HS. HHC/SNF: No hx of either. PLAN: Home w/spousal support and discharge plans in place. CM to follow for increase in O2 needs @ d/c. If pt needs O2 @ rest or more than 2 l/m w/exertion, a new script will need to be [place] [facility] [place]/OT evals pending. CM to follow for any needs @ d/c. Eric LEZAMA RN, CM
[2021-09-11] MEDS: 0.9% Saline Lock 10 ML Syringe IV ×2 (16:55→18:44)
[2021-09-11] MEDS: 0.9% Normal Saline 1,000 ML 100 ML IV (17:47)
[2021-09-11 18:26] LABS: Lactic Acid 1.4 mmol/L (0.4-1.9)
[2021-09-11] MEDS: Ondansetron 4 MG/2 ML Vial IV (18:45)
[2021-09-11] MEDS: Enoxaparin 30 MG/0.3 ML Syringe SC (19:54)
[2021-09-11] MEDS: Cholestyramine/Sucrose 4 GM/PACKET PO (19:55)
[2021-09-11] MEDS: Albuterol 2.5 MG/3 ML VIAL.NEB. INHALATION (20:08)
[2021-09-12] VITALS (25 sets, daily range): BP systolic 114–139; BP diastolic 62–87; PULSE 62–90; RESP 12–36; TEMP 36.4–37.6; O2SAT 85–94
--- NOTE | 2021-09-12 06:53 | PCS.PANDOC ---
PANDEMIC DOCUMENTATION INITIATED: Date: 04/20/2021 Time: 190
[2021-09-12] MEDS: Albuterol 2.5 MG/3 ML VIAL.NEB. INHALATION ×3 (07:38→20:56)
[2021-09-12] MEDS: Pantoprazole Sodium 40 MG Tablet PO (08:17)
[2021-09-12] MEDS: Enoxaparin 30 MG/0.3 ML Syringe SC ×2 (08:18→21:09)
[2021-09-12] MEDS: dexAMETHasone 10 MG/ML Vial 6 MG IV (08:18)
[2021-09-12] MEDS: 0.9% Saline Lock 10 ML Syringe IV ×2 (08:18→23:28)
[2021-09-12 08:19] LABS: Absolute Lymphocyte Count 0.92 X10^3/uL (0.83-4.51); Absolute Neutrophil Count 12.6 X10^3/uL (2.0-7.7); Basophil# 0.02 X10^3/uL; Basophil% 0.1 % (0-1); Hemoglobin 14.7 g/dL (13.0-16.5); Lymphocyte # 0.92 X10^3/ul (0.83-4.51); Lymphocyte % 6.2 % (19-41); Mean Corp Hgb Conc 34.2 g/dL (32-36); Mean Corpuscular Hgb 30.9 pg (27.0-32.0); Mean Corpuscular Volume 90.3 fL (80-94); Mean Platelet Vol. 9.7 fl (6.2-12.0); Monocyte# 1.34 X10^3/uL; NRBC Flagged by Analyzer 0 % (0-5); Neutrophil # 12.56 X10^3/uL (2.7-7.7); Neutrophil % 84.1 % (47-70); Platelet Count 248 K/mm3 (150-450); RBC Distribution Width CV 13.1 % (11.6-14.6); Red Blood Count 4.76 M/mm3 (4.6-6.2); White Blood Count 14.9 K/mm3 (4.4-11.0)
[2021-09-12 08:51] LABS: ALB/GLOB Ratio 0.6 RATIO (0.9-2.4); AST(SGOT) 74 U/L (15-37); Alanine Aminotransfer ALT/SGPT 55 U/L (16-61); Albumin, Serum 2.4 g/dL (3.2-5.0); Alkaline Phosphatase 84 U/L (45-117); Anion Gap 7 (5-15); BUN 27 mg/dL (7-18); BUN/Creat Ratio 31.4 RATIO (10-20); Calcium,Total 8.4 mg/dL (8.5-10.1); Chloride 109 mmol/L (98-107); Creatinine, Serum 0.86 mg/dL (0.70-1.30); EST Glomerular Filtration Rate 94 mL/min (>60); Est Glom Filt Rate - Afr Amer 114 mL/min (>60); Estimated Creatinine Clearance 87.56 ml/min; Globulin 3.8 g/dL (2.2-4.2); Glucose 107 mg/dL (74-106); Potassium 4.2 mmol/L (3.5-5.1); Protein, Total 6.2 g/dL (6.4-8.2); Sodium Level 141 mmol/L (136-145)
[2021-09-12] MEDS: guaiFENesin 1,200 MG Tablet 1200 MG PO ×2 (09:15→21:09)
[2021-09-12] MEDS: Mag Hydrox/Al Hydrox/Simeth 30 ML UDC PO (10:47)
--- NOTE | 2021-09-12 13:04 | CON.PCM.CC_ITS ---
Assessment & Plan Assessment/Plan (1) Respiratory failure with hypoxia: QUALIFIERS: Chronicity: acute on chronic Qualified Code(s): J96.21 - Acute and chronic respiratory failure with hypoxia (2) Pneumonia due to COVID-19 virus: (3) COPD exacerbation: (4) Asthma: PLAN: RECOMMENDATIONS: 1. Continue Decadron (09/21/2021) and Remdesivir (09/15/2021) 2. CRP is not significantly elevated, so baricitinib is likely not indicated 3. Encourage Acapella, incentive spirometer and prone positioning as t olerated 4. Wean supplemental oxygen as tolerated 5. Agree with mucolytic and bronchodilator therapy 6. Obtain sputum culture. Start antibiotics with fever IMPRESSIONS: 1. Acute on chronic hypoxic respiratory failure secondary to COVID-19 in setting of asthma/COPD overlap Patient with only mild obstruction at baseline with new onset COVID-19. Patient does have significant bilateral infiltrates noted. Patient is appropriately on Decadron and Remdesivir. Patient CRP is elevated to approximately 27, but data shows the baricitinib is most effective over 75. This will be held for now. Procalcitonin is only mildly elevated, so reasonable to monitor off of antibiotics in my opinion. Encourage Acapella, incentive spirometer and prone positioning as tolerated. BiPAP rescue with sleep would be indicated. We will need to watch fluid status closely. 2. Obesity/advanced age/Crohn's disease/chronic pancreatitis/obesity/GERD Complicates care, management, recovery and prognosis. Okay to continue with baseline cholestyramine and Creon regimen from my perspective. Patient likely would not benefit from nicotine repletion given protracted cessation of tobacco. Continue home PPI. HPI Consult Data Date of Consult: 09/12/21 HPI Narrative HPI Narrative: LIZZIE FIORE is a 66 M, with past medical history listed below who is known by Dr. Kim, who presents to [facility] on 09[facility]11[facility]2021 secondary to worsening dyspnea. Patient reportedly started to have symptoms of COVID-19 10 days ago. Patient was on prednisone and did receive a monoclonal antibody a day before presentation. Patient does have a history of COPD on 3 L nasal cannula at baseline. Patient is a current non-smoker and does check his oxygen levels frequently. Patient was noted to be hypoxic at home, so came into the ER for evaluation. Patient is not reporting any chest pain, nausea or vomiting. Patient has had some myalgias. In the ER, patient was afebrile, but saturating only 89% on 6 L/min. Patient was eventually transitioned to Airvo with improvement. Patient was tachypneic as high as 40 breaths per minute, but remained normotensive. Laboratory work-up showed a white blood cell count of 15.3, hemoglobin of 16.4 and platelet count of 253. D-dimer was slightly elevated at 0.44 and BNP was 45. Chemistry showed a creatinine of 1.11, lactate of 2.3 and a slightly elevated AST and ALT. Chest x-ray showed progressive bilateral infiltrates and an EKG showed normal sinus rhythm. Patient was admitted to the hospital secondary to high oxygen requir ements. Since being admitted to the hospital, patient has had needed Airvo to maintain saturations. Patient overall feels subjectively unchanged compared to previous. Patient does report a cough with sparse production. Patient states that he was fully vaccinated with Pfizer, but could not receive a booster secondary to availability. Patient did wear BiPAP overnight and felt that his oxygen did better, but reports it was difficult to tolerate. Review of systems otherwise negative from a constitutional, HEENT, respiratory, cardiovascular, GI, genitourinary, musculoskeletal, skin, neurologic, psychiatric and hematologic system unless stated above. [facility] Medical History Acute bronchitis Chronic pancreatitis Crohn's disease of small intestine Dyslipidemia Gynecomazia Home Medications omeprazole 40 mg PO DAILY 01/10/14 [History Last Taken 09/11/21] cholestyramine (with sugar) 1 dose PO DAILY@1300 12/16/17 [History Last Taken 0 09/10/21] aatzxy-vmcfukwk-qsyasna 3 cap PO TIDCM 06/21/18 [History Last Taken 09/10/21] ondansetron 4 mg PO Q12H PRN PRN 09/06/19 [History Last Taken Unknown] albuterol sulfate 90 mcg/actuation aerosol inhaler 2 puff INHALATION Q6H PRN #1 device 12/31/20 [Rx Last Taken 09/11/21] acetaminophen 1,000 mg PO Q6H PRN 09/11/21 [History Last Taken Unknown] adalimumab [Humira Pen] 40 mg SUBCUT .Q14DAY 09/11/21 [History Last Taken 09/08/21] azelastine 1 spray INTRANASAL Q12H 09/11/21 [History Last Taken 09/11/21] fluticasone propion-salmeterol [Advair Diskus] 1 inh INHALATION BID 09/11/21 [History Last Taken 09/11/21] prednisone 10 mg PO UD 09/11/21 [History Last Taken 09/11/21] Allergy/AdvReac Type Severity Reaction Status Date / Time budesonide Allergy Swelling Verified 09/09/21 16:14 Family History Mother Heart disease Father Cancer Hx lung cancer, concurrent tobacco use history. Surgical History Abdominal hernia History of appendectomy History of bowel resection History of cholecystectomy History of ERCP Social History household members: spouse Smoking Status: Former smoker Tobacco: How many years used: 2 how long ago did patient quit smoking: Quit 1973, prior smoked 1ppd since teen. second hand exposure: Yes alcohol intake: never substance use type: does not use ROS ROS Narrative See HPI Physical Exam Const alert and oriented x3 Constitutional Narrative: Mild conversational dyspnea General Appearance: in distress Positive for mild Nutritional Appearance: obese HEENT normocephalic, head/scalp atraumatic and moist oral mucous membranes Eyes PERRL, EOMs intact bilaterally, conjunctivae normal and no scleral icterus Neck full ROM Chest Chest: abnormal inspection of the chest increased A-P diameter and symmetrical chest wall rise; Negative for crepitus Resp Auscultation: diminished lung sounds; Negative for rales, rhonchi or wheezes Percussion: Negative for dullness Cardio regular rate, regular rhythm, S1 normal heart sound, S2 normal heart sound, no murmurs, no rub and no gallops GI normal to inspection, nondistended, normoactive bowel sounds Extremity General Extremity: Negative for clubbing, cyanosis or edema Skin no rashes or lesions noted Neuro oriented x3, CN's II-XII intact bilaterally and moves all extremities Psych cooperative Appearance: well kempt Speech: normal speech Lab / Micro Data Result Diagrams: 09/12/21 07:23 09/12/21 07:23 Labs: Laboratory Results - last 24 hr 09/11/21 11:50: Ferritin 1074 H, Lactate Dehydrogenase 456 H, C-React Prot Ext Range 26.80 H 09/11/21 11:50: Procalcitonin 0.15 H 09/11/21 17:36: Lactic Acid 1.4 09/12/21 07:23: WBC 14.9 H, RBC 4.76, Hgb 14.7, Hct 43.0, MCV 90.3, MCH 30.9, MCHC 34.2, RDW Std Deviation 44.0 H, RDW Coeff of Zachary 13.1, Plt Count 248, MPV 9.7, Immature Gran % (Auto) 0.600, Neut % (Auto) 84.1 H, Lymph % (Auto) 6.2 L, [place] % (Auto) 9.0, Eos % (Auto) 0.0, Baso % (Auto) 0.1, Absolute Neuts (auto) 12.6 H, Absolute Lymphs (auto) 0.92, Nucleated RBC % 0 09/12/21 07:23: Sodium 141, Potassium 4.2, Chloride 109 H, Carbon Dioxide 25.0, Anion Gap 7, BUN 27 H, Creatinine 0.86, Estim Creat Clear Calc 87.56, Est GFR (MDRD) Af Amer 114, Est GFR (MDRD) Non-Af 94, BUN/Creatinine Ratio 31.4 H, Glucose 107 H, Calcium 8.4 L, Total Bilirubin 0.90, AST 74 H, ALT 55, Alkaline Phosphatase 84, Total Protein 6.2 L, Albumin 2.4 L, Globulin 3.8, Albumin/Globulin Ratio 0.6 L Micro: Microbiology 09/12/21 10:43 Urine, Random Legionella Antigen - Final 09/12/21 10:43 Urine, Random Streptococcus pneumoniae Antigen (M - Final Charges/Coding Visit Charges Inpatient E&M: 04983 Init Hosp L3
--- NOTE | 2021-09-12 18:07 | PN.HOSP_ITS ---
Subjective Subjective Patient states his breathing is a little bit better he feels. He was fully vaccinated with Pfizer for 2 doses but was not boosted. He states he try to get his booster dose but reports nobody had them available. He has some mild tachypnea on exam and is requiring air Vo. He states he has COPD at baseline from work exposures. He was never smoker. Objective Data Objective Data Vital Signs: Vital Signs Temp Pulse Resp BP Pulse Ox 99.6 F H 76 30 H 136/81 H 92 09/12/21 17:00 09/12/21 17:00 09/12/21 17:00 09/12/21 17:00 09/12/21 17:00 Oxygen Flow Rate (L/min) 60 Oxygen Delivery Method Airvo Weight: 105.6 kg Body Mass Index (BMI) 32.6 Intake & Output: Intake and Output for Last 24 Hours 09/10/21 09/11/21 09/12/21 23:59 23:59 23:59 Intake Total 490 / 490 1970 / 1970 Output Total 550 / 550 Balance 490 / 490 1420 / 1420 Lab / Micro Data Result Diagrams: 09/12/21 07:23 09/12/21 07:23 Labs: Laboratory Results - last 24 hr 09/11/21 17:36: Lactic Acid 1.4 09/12/21 07:23: WBC 14.9 H, RBC 4.76, Hgb 14.7, Hct 43.0, MCV 90.3, MCH 30.9, MCHC 34.2, RDW Std Deviation 44.0 H, RDW Coeff of Zachary 13.1, Plt Count 248, MPV 9.7, Immature Gran % (Auto) 0.600, Neut % (Auto) 84.1 H, Lymph % (Auto) 6.2 L, [place] % (Auto) 9.0, Eos % (Auto) 0.0, Baso % (Auto) 0.1, Absolute Neuts (auto) 12.6 H, Absolute Lymphs (auto) 0.92, Nucleated RBC % 0 09/12/21 07:23: Sodium 141, Potassium 4.2, Chloride 109 H, Carbon Dioxide 25.0, Anion Gap 7, BUN 27 H, Creatinine 0.86, Estim Creat Clear Calc 87.56, Est GFR (MDRD) Af Amer 114, Est GFR (MDRD) Non-Af 94, BUN/Creatinine Ratio 31.4 H, Glucose 107 H, Calcium 8.4 L, Total Bilirubin 0.90, AST 74 H, ALT 55, Alkaline Phosphatase 84, Total Protein 6.2 L, Albumin 2.4 L, Globulin 3.8, Albumin/Globulin Ratio 0.6 L Micro: Microbiology 09/12/21 10:43 Urine, Random Legionella Antigen - Final 09/12/21 10:43 Urine, Random Streptococcus pneumoniae Antigen (M - Final Physical Exam Const alert and oriented x3 Constitutional Narrative: Obese upper middle-aged white male sitting up in bed, watching television, currently on air Vo, mild tachypnea but appears nontoxic Exam Limitations: no limitations Nutritional Appearance: obese HEENT head/scalp atraumatic, moist oral mucous membranes and oropharynx normal HEENT Narrative: Mallampati 2-3, no thrush Head and Scalp: normocephalic Resp Resp Narrative: Mild tachypnea but no use of accessory muscles or retractions, few crackles at bases bilateral but otherwise diminished Auscultation: crackles; Negative for rales, rhonchi or wheezes Cardio regular rate, regular rhythm, S1 normal heart sound, S2 normal heart sound, no murmurs, no rub, no gallops, no clicks and no JVD GI normal to inspection, nondistended, normoactive bowel sounds, soft to palpation, non-tender and non-distended Extremity no clubbing, cyanosis or edema Peripheral Pulses: Yes pulses 2+ throughout Neuro oriented x3, moves all extremities and no focal motor deficits Sensorium / Orientation: awake and alert Speech: speech normal Assessment & Plan Assessment/Plan (1) Respiratory failure with hypoxia: QUALIFIERS: Chronicity: acute on chronic Qualified Code(s): J96.21 - Acute and chronic respiratory failure with hypoxia (2) Pneumonia due to COVID-19 virus: (3) Transaminitis: PLAN: Acute on chronic hypoxic respiratory failure secondary to COVID-19 infection -Symptom onset 09/01/2021--> isolation until 09/21/2020 -Status post monoclonal antibody treatment 09/10/2020 -Patient was vaccinated x2 with Pfizer but no booster given -Suspect patient is more ill secondary to immunosuppression from Crohn's medication at baseline -Decadron day 2 of 10 -Remdesivir day 2 of 5 -CRP is 27--> baricitinib not indicated at this time -Mild pro-Wesly elevation -Check sputum culture but hold empiric antibiotics at this time and monitor clinically -Encourage I-S and Pep -Mobilization as able -Prone lying encouraged -Continue Mucinex -Pulmonary consult-appreciate input Lactic acidosis -Likely related to hypoxia -No signs of sepsis Mild transaminitis -Suspect related to acute Covid infection -We will monitor daily CMP while on remdesivir COPD -Home therapy -As needed nebs -Patient does wear approximately 2 L nasal cannula during the day History of Crohn's disease -Status post bowel resection -Patient is on Humira -We will hold while acutely ill Chronic pancreatitis -Continue home cholestyramine and Creon GERD -Continue home omeprazole DVT prophylaxis -SCDs -Prophylactic dose Lovenox CODE STATUS -Full code Charges/Coding Visit Charges Inpatient E&M: 11426 Subs Hosp L2
[2021-09-12] MEDS: Cholestyramine/Sucrose 4 GM/PACKET PO (21:10)
[2021-09-12] MEDS: Ondansetron 4 MG/2 ML Vial IV (23:28)
[2021-09-13] VITALS (16 sets, daily range): BP systolic 122–139; BP diastolic 71–85; PULSE 64–79; RESP 12–36; TEMP 36.7–37.2; O2SAT 88–96
[2021-09-13 06:26] LABS: Absolute Neutrophil Count 10.7 X10^3/uL (2.0-7.7); Basophil# 0.02 X10^3/uL; Basophil% 0.1 % (0-1); Hematocrit 43.9 % (40-54); Hemoglobin 14.6 g/dL (13.0-16.5); Lymphocyte % 7.5 % (19-41); Mean Corp Hgb Conc 33.3 g/dL (32-36); Mean Corpuscular Hgb 30.2 pg (27.0-32.0); Mean Corpuscular Volume 90.7 fL (80-94); Mean Platelet Vol. 9.6 fl (6.2-12.0); Monocyte# 1.51 X10^3/uL; Monocyte% 11.3 % (0-10); NRBC Flagged by Analyzer 0 % (0-5); Neutrophil # 10.73 X10^3/uL (2.7-7.7); Neutrophil % 80.2 % (47-70); POSITIVE DIFFERENTIAL YES; Platelet Count 287 K/mm3 (150-450); RBC Distribution Width SD 43.5 fl (35.1-43.9); Red Blood Count 4.84 M/mm3 (4.6-6.2); White Blood Count 13.4 K/mm3 (4.4-11.0)
[2021-09-13 06:37] LABS: Differential Indicated SCAN CRITERIA MET
[2021-09-13 07:06] LABS: Differential Comment SCANNED
[2021-09-13 07:36] LABS: ALB/GLOB Ratio 0.6 RATIO (0.9-2.4); AST(SGOT) 57 U/L (15-37); Alanine Aminotransfer ALT/SGPT 52 U/L (16-61); Albumin, Serum 2.4 g/dL (3.2-5.0); Alkaline Phosphatase 85 U/L (45-117); Anion Gap 7 (5-15); BUN 30 mg/dL (7-18); BUN/Creat Ratio 36.9 RATIO (10-20); Calcium,Total 8.3 mg/dL (8.5-10.1); Chloride 106 mmol/L (98-107); Creatinine, Serum 0.81 mg/dL (0.70-1.30); EST Glomerular Filtration Rate 100 mL/min (>60); Est Glom Filt Rate - Afr Amer 121 mL/min (>60); Estimated Creatinine Clearance 92.96 ml/min; Globulin 4.2 g/dL (2.2-4.2); Glucose 111 mg/dL (74-106); Potassium 4.1 mmol/L (3.5-5.1); Protein, Total 6.6 g/dL (6.4-8.2); Sodium Level 139 mmol/L (136-145)
[2021-09-13] MEDS: Albuterol 2.5 MG/3 ML VIAL.NEB. INHALATION ×3 (08:26→20:35)
[2021-09-13] MEDS: guaiFENesin 1,200 MG Tablet 1200 MG PO ×2 (09:42→21:27)
[2021-09-13] MEDS: Pantoprazole Sodium 40 MG Tablet PO (09:42)
[2021-09-13] MEDS: dexAMETHasone 10 MG/ML Vial 6 MG IV (09:43)
[2021-09-13] MEDS: Enoxaparin 30 MG/0.3 ML Syringe SC ×2 (09:43→21:27)
[2021-09-13] MEDS: Furosemide 40 MG/4 ML Vial IV (09:44)
[2021-09-13] MEDS: 0.9% Saline Lock 10 ML Syringe IV (09:44)
[2021-09-13] MEDS: Acetaminophen 325 MG Tablet 650 MG PO (09:46)
--- NOTE | 2021-09-13 10:01 | PN.CC_ITS ---
Assessment & Plan Assessment/Plan (1) Respiratory failure with hypoxia: QUALIFIERS: Chronicity: acute on chronic Qualified Code(s): J96.21 - Acute and chronic respiratory failure with hypoxia (2) Pneumonia due to COVID-19 virus: (3) COPD exacerbation: (4) Asthma: PLAN: RECOMMENDATIONS: 1. Continue Decadron (09/21/2021) and Remdesivir (09/15/2021) 2. CRP is not significantly elevated, so baricitinib is likely not indicated 3. Encourage Acapella, incentive spirometer and prone positioning as t olerated 4. Wean supplemental oxygen as tolerated 5. Agree with mucolytic and bronchodilator therapy. Add nasal saline. 6. Obtain sputum culture. Start antibiotics with fever IMPRESSIONS: 1. Acute on chronic hypoxic respiratory failure secondary to COVID-19 in setting of asthma/COPD overlap Patient with only mild obstruction at baseline with new onset COVID-19. Patient does have significant bilateral infiltrates noted. Patient is appropriately on Decadron and Remdesivir. Patient CRP is elevated to approximately 27, but data shows the baricitinib is most effective over 75. This will be held for now. Procalcitonin is only mildly elevated, so reasonable to monitor off of antibiotics in my opinion. Encourage Acapella, incentive spirometer and prone positioning as tolerated. BiPAP rescue with sleep would be indicated. We will need to watch fluid status closely. Challenge with Lasix today. Guarded prognosis given immunosuppression, lack of booster dose and underlying lung disease. 2. Obesity/advanced age/Crohn's disease/chronic pancreatitis/obesity/GERD Complicates care, management, recovery and prognosis. Okay to continue with baseline cholestyramine and Creon regimen from my perspective. Patient likely would not benefit from nicotine repletion given protracted cessation of tobacco. Continue home PPI. Subjective Subjective Patient did okay overnight. Patient subjectively feels unchanged compared to previous, but has marginal saturations when he is on his Airvo. Patient does report a cough. No chest pain is reported. No hemoptysis has been reported, but patient is having sinus congestion. Objective Data Objective Data Vital Signs: Vital Signs Temp Pulse Resp BP Pulse Ox 36.8 C 79 28 H 123/71 H 90 09/13/21 09:41 09/13/21 09:41 09/13/21 09:41 09/13/21 09:41 09/13/21 09:41 Oxygen Flow Rate (L/min) 60 Oxygen Delivery Method Airvo Weight: 106.3 kg Body Mass Index (BMI) 32.6 Intake & Output: Intake and Output for Last 24 Hours 09/11/21 09/12/21 09/13/21 23:59 23:59 23:59 Intake Total 490 / 490 2210 / 2210 100 / 100 Output Total 1000 / 1000 250 / 250 Balance 490 / 490 1210 / 1210 -150 / -150 Lab / Micro Data Result Diagrams: 09/13/21 06:00 09/13/21 07:00 Labs: Laboratory Results - last 24 hr 09/13/21 06:00: WBC 13.4 H, RBC 4.84, Hgb 14.6, Hct 43.9, MCV 90.7, MCH 30.2, MCHC 33.3, RDW Std Deviation 43.5, RDW Coeff of Zachary 13.0, Plt Count 287, MPV 9.6, Immature Gran % (Auto) 0.900, Neut % (Auto) 80.2 H, Lymph % (Auto) 7.5 L, [place] % (Auto) 11.3 H, Eos % (Auto) 0.0, Baso % (Auto) 0.1, Absolute Neuts (auto) 10.7 H, Absolute Lymphs (auto) 1.00, Nucleated RBC % 0, Differential Comment SCANNED, Diff Path Review January09/13/21 06:00: Sodium Cancelled, Potassium Cancelled, Chloride Cancelled, Carbon Dioxide Cancelled, Anion Gap Cancelled, BUN Cancelled, Creatinine Cancelled, Estim Creat Clear Calc Cancelled, Est GFR (MDRD) Af Amer Cancelled, Est GFR (MDRD) Non-Af Cancelled, BUN/Creatinine Ratio Cancelled, Glucose Cancelled, Calcium Cancelled, Total Bilirubin Cancelled, AST Cancelled, ALT Cancelled, Alkaline Phosphatase Cancelled, Total Protein Cancelled, Albumin Cancelled, Globulin Cancelled, Albumin/Globulin Ratio Cancelled 09/13/21 07:00: Sodium 139, Potassium 4.1, Chloride 106, Carbon Dioxide 26.0, Anion Gap 7, BUN 30 H, Creatinine 0.81, Estim Creat Clear Calc 92.96, Est GFR (MDRD) Af Amer 121, Est GFR (MDRD) Non-Af 100, BUN/Creatinine Ratio 36.9 H, Glucose 111 H, Calcium 8.3 L, Total Bilirubin 1.00, AST 57 H, ALT 52, Alkaline Phosphatase 85, Total Protein 6.6, Albumin 2.4 L, Globulin 4.2, Albumin/Globulin Ratio 0.6 L Micro: Microbiology 09/12/21 10:43 Urine, Random Legionella Antigen - Final 09/12/21 10:43 Urine, Random Streptococcus pneumoniae Antigen (M - Final Physical Exam Const alert and oriented x3 Constitutional Narrative: Mild conversational dyspnea General Appearance: in distress Positive for mild Nutritional Appearance: obese HEENT normocephalic, head/scalp atraumatic and moist oral mucous membranes HEENT Narrative: Mucous obstructed nares noted. No blood Eyes PERRL, EOMs intact bilaterally, conjunctivae normal and no scleral icterus Neck full ROM Chest Chest: abnormal inspection of the chest increased A-P diameter and symmetrical chest wall rise; Negative for crepitus Resp Auscultation: diminished lung sounds; Negative for rales, rhonchi or wheezes Percussion: Negative for dullness Cardio regular rate, regular rhythm, S1 normal heart sound, S2 normal heart sound, no murmurs, no rub and no gallops GI normal to inspection, nondistended, normoactive bowel sounds Extremity General Extremity: Negative for clubbing, cyanosis or edema Skin no rashes or lesions noted Neuro oriented x3, CN's II-XII intact bilaterally and moves all extremities Psych cooperative Appearance: well kempt Speech: normal speech Charges/Coding Visit Charges Inpatient E&M: 16718 Subs Hosp L3
--- NOTE | 2021-09-13 15:38 | PCM.PN.HOSP ---
Subjective Subjective Patient has required fairly continuous BiPAP throughout the day. He has been able to come off for oral intake to air Vo and maintain oxygen saturations at around 90%. He had no complaints upon my exam today. He appears tired. Objective Data Objective Data Vital Signs: Vital Signs Temp Pulse Resp BP Pulse Ox 98.0 F 67 36 H 122/75 H 93 09/13/21 13:34 09/13/21 15:00 09/13/21 13:37 09/13/21 13:34 09/13/21 13:37 Oxygen Flow Rate (L/min) 60 Oxygen Delivery Method Bi-pap Weight: 106.3 kg Body Mass Index (BMI) 32.6 Intake & Output: Intake and Output for Last 24 Hours 09/11/21 09/12/21 09/13/21 23:59 23:59 23:59 Intake Total 490 / 490 2210 / 2210 344.17 / 344.17 Output Total 1000 / 1000 500 / 500 Balance 490 / 490 1210 / 1210 -155.83 / -155.83 Lab / Micro Data Result Diagrams: 09/13/21 06:00 09/13/21 07:00 Labs: Laboratory Results - last 24 hr 09/13/21 06:00: WBC 13.4 H, RBC 4.84, Hgb 14.6, Hct 43.9, MCV 90.7, MCH 30.2, MCHC 33.3, RDW Std Deviation 43.5, RDW Coeff of Zachary 13.0, Plt Count 287, MPV 9.6, Immature Gran % (Auto) 0.900, Neut % (Auto) 80.2 H, Lymph % (Auto) 7.5 L, [place] % (Auto) 11.3 H, Eos % (Auto) 0.0, Baso % (Auto) 0.1, Absolute Neuts (auto) 10.7 H, Absolute Lymphs (auto) 1.00, Nucleated RBC % 0, Differential Comment SCANNED, Diff Path Review January09/13/21 06:00: Sodium Cancelled, Potassium Cancelled, Chloride Cancelled, Carbon Dioxide Cancelled, Anion Gap Cancelled, BUN Cancelled, Creatinine Cancelled, Estim Creat Clear Calc Cancelled, Est GFR (MDRD) Af Amer Cancelled, Est GFR (MDRD) Non-Af Cancelled, BUN/Creatinine Ratio Cancelled, Glucose Cancelled, Calcium Cancelled, Total Bilirubin Cancelled, AST Cancelled, ALT Cancelled, Alkaline Phosphatase Cancelled, Total Protein Cancelled, Albumin Cancelled, Globulin Cancelled, Albumin/Globulin Ratio Cancelled 09/13/21 07:00: Sodium 139, Potassium 4.1, Chloride 106, Carbon Dioxide 26.0, Anion Gap 7, BUN 30 H, Creatinine 0.81, Estim Creat Clear Calc 92.96, Est GFR (MDRD) Af Amer 121, Est GFR (MDRD) Non-Af 100, BUN/Creatinine Ratio 36.9 H, Glucose 111 H, Calcium 8.3 L, Total Bilirubin 1.00, AST 57 H, ALT 52, Alkaline Phosphatase 85, Total Protein 6.6, Albumin 2.4 L, Globulin 4.2, Albumin/Globulin Ratio 0.6 L Micro: Microbiology 09/12/21 10:43 Sputum, Expectorated/Coughed Gram Stain - Final 09/12/21 10:43 Sputum, Expectorated/Coughed Respiratory Culture - Preliminary Appears to be normal respiratory cr. Further studies to follow. 09/12/21 10:43 Urine, Random Legionella Antigen - Final 09/12/21 10:43 Urine, Random Streptococcus pneumoniae Antigen (M - Final Physical Exam Narrative . Const alert, oriented x3 and no apparent distress Constitutional Narrative: Obese upper middle-aged white male sitting up in bed, resting comfortably on BiPAP, tachypnea noted but patient appears comfortable without any signs of extremis at this time, patient without complaints Exam Limitations: no limitations Nutritional Appearance: obese HEENT head/scalp atraumatic, moist oral mucous membranes and oropharynx normal HEENT Narrative: No thrush Head and Scalp: normocephalic Resp no retractions and no use of accessory muscles Resp Narrative: Mild tachypnea but no use of accessory muscles or retractions, few crackles at bases bilateral but otherwise diminished Auscultation: crackles; Negative for rales, rhonchi or wheezes Cardio regular rate, regular rhythm, S1 normal heart sound, S2 normal heart sound, no murmurs, no rub, no gallops, no clicks and no JVD GI normal to inspection, nondistended, normoactive bowel sounds, soft to palpation, non-tender and non-distended Extremity no clubbing, cyanosis or edema Peripheral Pulses: Yes pulses 2+ throughout Neuro oriented x3, moves all extremities and no focal motor deficits Sensorium / Orientation: awake and alert Speech: speech normal Assessment & Plan Assessment/Plan (1) Respiratory failure with hypoxia: QUALIFIERS: Chronicity: acute on chronic Qualified Code(s): J96.21 - Acute and chronic respiratory failure with hypoxia (2) Pneumonia due to COVID-19 virus: (3) Transaminitis: PLAN: Acute on chronic hypoxic respiratory failure secondary to COVID-19 infection -Symptom onset 09/01/2021--> isolation until 09/21/2020 -Status post monoclonal antibody treatment 09/10/2020 -Patient was vaccinated x2 with Pfizer but no booster given -Suspect patient is more ill secondary to immunosuppression from Humira for Crohn's -Decadron day 3 of 10 -Remdesivir day 3 of 5 -CRP is 27--> baricitinib not indicated at this time -Mild pro-Wesly elevation -Strep pneumo and Legionella antigen are negative -Sputum culture final is pending but appears to be normal oral cr at this time -Encourage I-S and Pep -Mobilization as able -Prone lying encouraged -Continue Mucinex -Would have low threshold for initiating antibiotics if patient has a fever -Pulmonary following-appreciate input Lactic acidosis -Likely related to hypoxia -No signs of sepsis Mild transaminitis -Suspect related to acute Covid infection -Slowly trending down -We will monitor daily CMP while on remdesivir COPD -Home therapy -As needed nebs -Patient does wear approximately 2 L nasal cannula during the day History of Crohn's disease -Status post bowel resection -Patient is on Humira -We will hold while acutely ill Chronic pancreatitis -Continue home cholestyramine and Creon GERD -Continue home omeprazole DVT prophylaxis -SCDs -Prophylactic dose Lovenox CODE STATUS -Full code Charges/Coding Visit Charges Inpatient E&M: 11252 Subs Hosp L2
--- NOTE | 2021-09-13 15:47 | RAD_ITS ---
STUDY: X-RAY CHEST REASON FOR EXAM: Male, 66 years old. picc line insertion TECHNIQUE: Frontal view COMPARISON: 09/11/2021 FINDINGS: Right PICC line with tip at the mid SVC level. The lungs are expanded. Bilateral diffuse infiltrates. Normal size heart. Normal mediastinum and trae. Normal visualized pulmonary arteries. Normal visualized aortic arch and descending thoracic aorta. Degenerative changes of the thoracic spine. Normal visualized ribs, clavicles, and shoulders. There is no demonstrated abnormality of the visualized soft tissue structures of the upper abdomen. RAD/CXR for Line Placement IMPRESSION: Bilateral diffuse infiltrates. Electronically Signed: Cayden Barakat DO at 17:40 EST Tel [phone], Service support ,
[2021-09-13] MEDS: Sodium Chloride 0.65% 1 SPRAY SPRAY.BTL 2 SPRAY NASAL (17:26)
[2021-09-13] MEDS: Cholestyramine/Sucrose 4 GM/PACKET PO (21:27)
[2021-09-14] VITALS (33 sets, daily range): BP systolic 96–155; BP diastolic 70–92; PULSE 50–106; RESP 12–40; TEMP 36.2–37.9; O2SAT 87–95
[2021-09-14] MEDS: guaiFENesin 10 ML UDC (200MG/10ML) 20 ML PO (05:17)
[2021-09-14 07:12] LABS: Hematocrit 46.8 % (40-54); Hemoglobin 15.6 g/dL (13.0-16.5); Mean Corp Hgb Conc 33.3 g/dL (32-36); Mean Corpuscular Hgb 30.1 pg (27.0-32.0); Mean Corpuscular Volume 90.3 fL (80-94); Mean Platelet Vol. 9.5 fl (6.2-12.0); POSITIVE DIFFERENTIAL YES; POSITIVE MORPHOLOGY YES; Platelet Count 253 K/mm3 (150-450); RBC Distribution Width CV 12.7 % (11.6-14.6); RBC Distribution Width SD 42.2 fl (35.1-43.9); Red Blood Count 5.18 M/mm3 (4.6-6.2); White Blood Count 13.9 K/mm3 (4.4-11.0)
[2021-09-14 07:38] LABS: ALB/GLOB Ratio 0.5 RATIO (0.9-2.4); AST(SGOT) 40 U/L (15-37); Alanine Aminotransfer ALT/SGPT 44 U/L (16-61); Albumin, Serum 2.3 g/dL (3.2-5.0); Alkaline Phosphatase 87 U/L (45-117); Anion Gap 6 (5-15); BUN 35 mg/dL (7-18); BUN/Creat Ratio 40.5 RATIO (10-20); Calcium,Total 8.6 mg/dL (8.5-10.1); Chloride 105 mmol/L (98-107); Creatinine, Serum 0.86 mg/dL (0.70-1.30); EST Glomerular Filtration Rate 93 mL/min (>60); Est Glom Filt Rate - Afr Amer 113 mL/min (>60); Estimated Creatinine Clearance 87.56 ml/min; Globulin 4.6 g/dL (2.2-4.2); Glucose 106 mg/dL (74-106); Potassium 3.8 mmol/L (3.5-5.1); Protein, Total 6.9 g/dL (6.4-8.2); Sodium Level 139 mmol/L (136-145)
[2021-09-14 07:43] LABS: Differential Indicated MANUAL DIFF
[2021-09-14 07:50] LABS: Lymphocyte 12 % (19-41); Metamyelocyte 2 % (0-1); Monocyte 3 % (0-10); Myelocyte 8 % (0-0); Neutrophil-Segmented 75 % (47-70); Total Cells Counted 100 (MANUAL DIFF)
[2021-09-14] MEDS: Albuterol 2.5 MG/3 ML VIAL.NEB. INHALATION ×2 (07:58→19:47)
[2021-09-14] MEDS: dexAMETHasone 10 MG/ML Vial 6 MG IV (08:36)
[2021-09-14] MEDS: Enoxaparin 30 MG/0.3 ML Syringe SC ×2 (08:36→21:27)
[2021-09-14 08:40] LABS: Absolute Neutrophil Count 10.4 X10^3/uL (2.0-7.7)
--- NOTE | 2021-09-14 10:35 | PCM.PN.INT ---
Assessment & Plan Assessment/Plan (1) Respiratory failure with hypoxia: QUALIFIERS: Chronicity: acute on chronic Qualified Code(s): J96.21 - Acute and chronic respiratory failure with hypoxia (2) Pneumonia due to COVID-19 virus: (3) COPD exacerbation: (4) Asthma: PLAN: RECOMMENDATIONS: 1. Proceed with intubation. 2. Continue assist control mode of mechanical ventilation. Wean FiO2/PEEP for saturations greater than 90%. 3. Obtain and send sputum for culture. 4. Obtain arterial blood gas. 5. Continue Decadron and remdesivir as ordered. 6. Continue bronchodilator therapy. 7. Continue appropriate GI and DVT prophylaxis. IMPRESSIONS: 1. Acute hypoxic respiratory failure secondary to COVID-19 in setting of asthma/COPD overlap The patient was initially admitted to the hospital in September 11 with worsening respiratory failure. The patient's oxygenation status has continued to worsen over the course of his hospitalization. The patient was ultimately transferred to the ICU and intubated on September 14. Plan to continue current supportive measures. The patient will be maintained on assist control mode of mechanical ventilation. FiO2 and PEEP will be weaned as tolerated. Remdesivir and Decadron will be continued as well. Will obtain and send sputum for culture. 2. Obesity/advanced age/Crohn's disease/chronic pancreatitis/obesity/GERD Complicates care, management, recovery and prognosis. Okay to continue with baseline cholestyramine and Creon regimen from my perspective. Will obtain nutrition consultation for tube feed recommendations. TIME: 40 minutes of critical care time, inclusive of procedures, was spent addressing the patient's acute hypoxemic respiratory failure secondary to COVID-19, review of all data and collaboration with the care team. Subjective Subjective The patient was seen and examined at the bedside this morning. Events from the last 24 hours have been reviewed. The patient has continued to decompensate from a respiratory perspective over the last 24 hours. He is currently requiring continuous BiPAP support with an FiO2 of 100%. Oxygen saturations are marginal. Therefore, the patient was transferred to the medical intensive care unit. On arrival, the patient appeared quite tachypneic and fatigued. I had a very betty discussion with him regarding intubation. He wishes to proceed. The patient is currently documented to be overall net +1 L for the hospitalization. The patient remains on remdesivir, Decadron and prophylactic Lovenox. Intubation Indication: Respiratory failure Consent was obtained from: Patient The patient was placed in the appropriate sniffing position. Preoxygenated sedation via BiPAP was provided for a minimum of 3 minutes. The patient had continuous cardiac as well as pulse oximetry monitoring during the procedure. Procedure sedation was provided by the administration of 4 mg of Versed, 20 mg of etomidate and 100 mg of succinylcholine. Direct laryngoscopy was then performed using a number 4 MAC blade, which revealed a grade 1 view. A 7.5 mm endotracheal tube was visualized advancing between the cords to the level of 23 cm at the lip. The stylette was then removed and discarded. Tube placement was confirmed by fogging in the tube along with equal and bilateral breath sounds. Colorimetric change was visualized on the CO2 meter. The cuff was then inflated and the tube secured using a commercially available device. A good pulse oximetry waveform was seen on the monitor throughout the procedure. A portable chest x-ray has been ordered to confirm appropriate placement. The patient tolerated the procedure well. Objective Data Objective Data The patient's most recent lab work, culture data and imaging studies have all been personally reviewed. Rapid coronavirus antigen testing was positive on September 09. Vital Signs: Vital Signs Temp Pulse Resp BP Pulse Ox 98.8 F 67 40 H 127/83 H 92 09/14/21 08:33 09/14/21 08:33 09/14/21 08:33 09/14/21 08:33 09/14/21 08:33 Oxygen Flow Rate (L/min) 60 Oxygen Delivery Method Bi-pap Weight: 106.3 kg Body Mass Index (BMI) 32.6 Intake & Output: Intake and Output for Last 24 Hours 09/12/21 09/13/21 09/14/21 23:59 23:59 23:59 Intake Total 2210 / 2210 830.00 / 980.00 150 / 150 Output Total 1000 / 1000 1250 / 1450 375 / 375 Balance 1210 / 1210 -420.00 / -470.00 -225 / -225 Lab / Micro Data Attestation: I reviewed the patient's lab results. Result Diagrams: 09/14/21 07:04 09/14/21 07:04 Labs: Laboratory Results - last 24 hr 09/14/21 07:04: WBC 13.9 H, RBC 5.18, Hgb 15.6, Hct 46.8, MCV 90.3, MCH 30.1, MCHC 33.3, RDW Std Deviation 42.2, RDW Coeff of Zachary 12.7, Plt Count 253, MPV 9.5, Neut % (Auto) Not Reportable, Absolute Neuts (auto) 10.4 H, Absolute Lymphs (auto) 4.70 H, Total Counted 100, Neutrophils % (Manual) 75 H, Lymphocytes % (Manual) 12 L, Monocytes % (Manual) 3, Metamyelocytes % 2 H, Myelocytes % 8 H, Diff Path Review January09/14/21 07:04: Sodium 139, Potassium 3.8, Chloride 105, Carbon Dioxide 28.0, Anion Gap 6, BUN 35 H, Creatinine 0.86, Estim Creat Clear Calc 87.56, Est GFR (MDRD) Af Amer 113, Est GFR (MDRD) Non-Af 93, BUN/Creatinine Ratio 40.5 H, Glucose 106, Calcium 8.6, Total Bilirubin 1.40 H, AST 40 H, ALT 44, Alkaline Phosphatase 87, Total Protein 6.9, Albumin 2.3 L, Globulin 4.6 H, Albumin/Globulin Ratio 0.5 L Micro: Microbiology 09/12/21 10:43 Sputum, Expectorated/Coughed Gram Stain - Final 09/12/21 10:43 Sputum, Expectorated/Coughed Respiratory Culture - Final 09/12/21 10:43 Urine, Random Legionella Antigen - Final 09/12/21 10:43 Urine, Random Streptococcus pneumoniae Antigen (M - Final Radiography Diagnostic Testing: Radiology Impression Chest X-Ray 09/13/21 15:47 IMPRESSION: Bilateral diffuse infiltrates. Electronically Signed: Cayden Barakat DO at 17:40 EST Tel [phone], Service support , Physical Exam Const General Appearance: intubated and patient mechanically ventilated Nutritional Appearance: obese HEENT normocephalic and head/scalp atraumatic Mouth: endotracheal tube in place and OG tube in place Eyes PERRL, EOMs intact bilaterally and conjunctivae normal Neck supple General: trachea midline Chest inspection of chest normal Resp Effort and Inspection: tachypneic and labored Auscultation: diminished lung sounds Cardio regular rate and regular rhythm GI normal to inspection, nondistended, normoactive bowel sounds Extremity no clubbing, cyanosis or edema Skin no rashes or lesions noted Neuro Sensorium / Orientation: sedated on vent Charges/Coding Procedures Hospitalists Procedures: 99819 Critial Care 1st Hr
--- NOTE | 2021-09-14 10:43 | PN.HOSP_ITS ---
Subjective Subjective Patient seen and examined this morning. Patient complained of feeling more short of breath. He was tachypneic and tachycardic and only saturating in the mid 80s was maxed out on BiPAP. Discussed emergently with critical care and patient transferred to ICU. Objective Data Objective Data Vital Signs: Vital Signs Temp Pulse Resp BP Pulse Ox 98.8 F 67 40 H 127/83 H 92 09/14/21 08:33 09/14/21 08:33 09/14/21 08:33 09/14/21 08:33 09/14/21 08:33 Oxygen Flow Rate (L/min) 60 Oxygen Delivery Method Bi-pap Weight: 234 lb 5.622 oz Body Mass Index (BMI) 32.6 Intake & Output: Intake and Output for Last 24 Hours 09/12/21 09/13/21 09/14/21 23:59 23:59 23:59 Intake Total 2210 / 2210 830.00 / 980.00 150 / 150 Output Total 1000 / 1000 1250 / 1450 375 / 375 Balance 1210 / 1210 -420.00 / -470.00 -225 / -225 Lab / Micro Data Result Diagrams: 09/14/21 07:04 09/14/21 07:04 Labs: Laboratory Results - last 24 hr 09/14/21 07:04: WBC 13.9 H, RBC 5.18, Hgb 15.6, Hct 46.8, MCV 90.3, MCH 30.1, MCHC 33.3, RDW Std Deviation 42.2, RDW Coeff of Zachary 12.7, Plt Count 253, MPV 9.5, Neut % (Auto) Not Reportable, Absolute Neuts (auto) 10.4 H, Absolute Lymphs (auto) 4.70 H, Total Counted 100, Neutrophils % (Manual) 75 H, Lymphocytes % (Manual) 12 L, Monocytes % (Manual) 3, Metamyelocytes % 2 H, Myelocytes % 8 H, Diff Path Review January09/14/21 07:04: Sodium 139, Potassium 3.8, Chloride 105, Carbon Dioxide 28.0, Anion Gap 6, BUN 35 H, Creatinine 0.86, Estim Creat Clear Calc 87.56, Est GFR (MDRD) Af Amer 113, Est GFR (MDRD) Non-Af 93, BUN/Creatinine Ratio 40.5 H, Glucose 106, Calcium 8.6, Total Bilirubin 1.40 H, AST 40 H, ALT 44, Alkaline Phosphatase 87, Total Protein 6.9, Albumin 2.3 L, Globulin 4.6 H, Albumin/Globulin Ratio 0.5 L Micro: Microbiology 09/12/21 10:43 Sputum, Expectorated/Coughed Gram Stain - Final 09/12/21 10:43 Sputum, Expectorated/Coughed Respiratory Culture - Final 09/12/21 10:43 Urine, Random Legionella Antigen - Final 09/12/21 10:43 Urine, Random Streptococcus pneumoniae Antigen (M - Final Radiography Diagnostic Testing: Radiology Impression Chest X-Ray 09/13/21 15:47 IMPRESSION: Bilateral diffuse infiltrates. Electronically Signed: Cayden Barakat DO at 17:40 EST Tel [phone], Service support , Physical Exam Const alert and oriented x3 Constitutional Narrative: Anxious Exam Limitations: no limitations HEENT head/scalp atraumatic Head and Scalp: normocephalic Mouth: dry mucous membranes Eyes PERRL, EOMs intact bilaterally and conjunctivae normal Resp Resp Narrative: diminished breath sounds bibasally, few wheezes and crackles. On BIPAP. tachypneic. Cardio S1 normal heart sound, S2 normal heart sound and no murmurs Cardio Narrative: tachycardic Extremity normal to inspection, full ROM and no clubbing, cyanosis or edema Peripheral Pulses: Yes pulses 2+ throughout Skin no rashes or lesions noted Neuro oriented x3, CN's II-XII intact bilaterally and moves all extremities Sensorium / Orientation: awake and alert Psych affect normal Assessment & Plan Assessment/Plan (1) Pneumonia due to COVID-19 virus: (2) Respiratory failure with hypoxia: QUALIFIERS: Chronicity: acute on chronic Qualified Code(s): J96.21 - Acute and chronic respiratory failure with hypoxia PLAN: #Acute hypoxic respiratory failure due to covid 19 pneumonia * Patient emergently transferred to ICU today as he was still tachypneic and tachycardic and saturating only in the mid 80s was maxed out on BiPAP * On remdesivir and Decadron. To be in isolation till 09/21/2020. * Patient has been vaccinated with [facility] x2 but has not yet had the booster. * Titrate oxygen to maintain saturation above 90%. Breathing treatments of bronchodilators. * Diurese as needed to maintain euvolemic status. * Critical care on board. * #Mild transaminitis: Resolving. Will monitor #Lactic acidosis: Resolved #History of Crohn's disease: S/p bowel resection. On Humira which is on hold in light of acute illness #History of chronic pancreatitis: On cholestyramine and Creon #GERD: On PPI DVT prophylaxis: Lovenox CODE STATUS: * Full code. * This was confirmed again today and patient was counseled about possible need for intubation in light of his tenuous respiratory status and need for transfer to ICU. Patient is agreeable to intubation and CPR as needed. Charges/Coding Visit Charges Inpatient E&M: 08878 Subs Hosp L3
[2021-09-14] MEDS: Midazolam 2 MG/2 ML Syringe 4 MG IV (10:49)
[2021-09-14] MEDS: Etomidate 20 MG/10 ML Vial IV (10:50)
[2021-09-14] MEDS: Propofol 10MG/Ml 1,000 MG/100 ML Bottle 15.4 MG CONT INF (10:52)
--- NOTE | 2021-09-14 10:53 | NURSING ---
1047: Dr. trinidad present in room for intubation, spoke to patient's at 1030 and updated her about intubation 1051: 7.5 ETT 23@lip placed with positive color change note and bilateral breath sounds present
--- NOTE | 2021-09-14 10:55 | RAD_ITS ---
STUDY: X-RAY CHEST REASON FOR EXAM: Male, 66 years old. ETT and OGT placement TECHNIQUE: Single AP portable view of the chest. COMPARISON: Comparison is made with prior study dated 09/13/2021. FINDINGS: An endotracheal tube is in situ with the tip at 4 cm proximal to the enrike. Endogastric tube is seen with the tip in the body of the stomach. A right-sided PICC line catheter is present with the tip at the junction of the superior vena cava and right atrium. EKG electrodes are seen. Persistent bilateral pulmonary infiltrates. There has been improvement as compared to prior examination. There is no demonstrated pleural abnormality. Normal size heart. Normal mediastinum and trae. Normal visualized pulmonary arteries. There is atherosclerotic tortuosity of the aortic arch and descending thoracic aorta. There are diffuse degenerative changes of the visualized thoracic spine. Normal visualized ribs, clavicles, and shoulders. There is no demonstrated abnormality of the visualized soft tissue structures of the upper abdomen. RAD/Chest 1 View (Portable) IMPRESSION: Support tubes are in good position. Persistent bilateral pulmonary infiltrates although there has been some improvement as compared to prior study. Electronically Signed: Ike Metcalf MD at 12:05 EST , Service support ,
[2021-09-14 11:28] LABS: CPK Total, Creatine Kinase 66 U/L (39-308); Triglycerides 68 mg/dL
[2021-09-14] MEDS: Pantoprazole Sodium 40 MG Tablet PO (12:22)
--- NOTE | 2021-09-14 12:55 | RAD_ITS ---
STUDY: X-RAY - ABDOMEN/PELVIS REASON FOR EXAM: Male, 66 years old. Replaced OGT TECHNIQUE: Oral gastric tube placement. COMPARISON: None. FINDINGS: The tip of the orogastric tube is just distal to the gastroesophageal junction. RAD/Abdomen Single View (Portable) IMPRESSION: The tip of the orogastric tube is just distal to the gastroesophageal junction. Electronically Signed: Ike Metcalf MD at 13:32 EST , Service support ,
[2021-09-14 13:16] LABS: Allen Test Positive; Base Excess 6 mmol/L (-2 to +2); Bicarbonate 29.6 mmol/L (22-26); Blood Gas Specimen Type ART; FI02 100; Mode AC; O2 Delivery Device Adult Vent; PEEP 10; PO2 145 mmHG (75-100); RR 15; SITE L Radial; SO2 99 % (95-99); Total Carbon Dioxide 31 mmol/L; Vt 500; pCO2 43.6 mmHg (35-45); pH 7.44 (7.35-7.45)
[2021-09-14] MEDS: Propofol 10MG/Ml 1,000 MG/100 ML Bottle 18.5 MG CONT INF (13:26)
[2021-09-14 13:50] LABS: Pathologist Review Reviewed
[2021-09-14 13:55] LABS: Pathologist Review Reviewed
--- NOTE | 2021-09-14 16:32 | PCM.RX.CS ---
Consult Pharmacy has been consulted to manage selected antiobiotic: Vancomycin Type of Consult: New start Prior Doses of Antibiotics Received/Current Regimen: Medications Discontinued Medications Vancomycin HCl 2,000 mg/ (Sodium Chloride) 540 mls @ 250 mls/hr IV X1 ONE Stop: 09/14/21 14:39 Last Admin: 09/14/21 15:06 Dose: 250 mls/hr Documented by: Labs: Sodium 139 mmol/L (136-145) 09/14/21 07:04 Potassium 3.8 mmol/L (3.5-5.1) 09/14/21 07:04 Chloride 105 mmol/L (98-107) 09/14/21 07:04 Carbon Dioxide 28.0 mmol/L (21.0-32.0) 09/14/21 07:04 Anion Gap 6 (5-15) 09/14/21 07:04 BUN 35 mg/dL (7-18) H 09/14/21 07:04 Creatinine 0.86 mg/dL (0.70-1.30) 09/14/21 07:04 Est GFR (MDRD) Af Amer 113 mL/min (>60) 09/14/21 07:04 Est GFR (MDRD) Non-Af 93 mL/min (>60) 09/14/21 07:04 BUN/Creatinine Ratio 40.5 RATIO (10-20) H 09/14/21 07:04 Glucose 106 mg/dL (74-106) 09/14/21 07:04 Microbiology: Microbiology 09/14/21 10:50 Sputum, Induced/Lukens Gram Stain - Final 09/12/21 10:43 Sputum, Expectorated/Coughed Gram Stain - Final 09/12/21 10:43 Sputum, Expectorated/Coughed Respiratory Culture - Final 09/12/21 10:43 Urine, Random Legionella Antigen - Final 09/12/21 10:43 Urine, Random Streptococcus pneumoniae Antigen (M - Final Weight used for dosin kg Estimated Creatinine Clearance: 88 Goal Trough: 15-20 mcg/mL Pharmacy Plan for Drug Dosinmg x1, 1750mg IV q12h with trough prior to 4th dose per policy. Pharmacy Service will continue to monitor and adjust dosing as required. Follow-Up Labs: Trough Vancomycin - 09/16 @ 0230
[2021-09-14] MEDS: guaiFENesin 10 ML UDC (200MG/10ML) 20 ML GT ×2 (16:55→23:42)
[2021-09-14] MEDS: Propofol 10MG/Ml 1,000 MG/100 ML Bottle 12.3 MG CONT INF (18:49)
[2021-09-14] MEDS: Cholestyramine/Sucrose 4 GM/PACKET GT (21:23)
[2021-09-14] MEDS: Chlorhexidine 15 ML PO (21:26)
[2021-09-15] VITALS (31 sets, daily range): BP systolic 103–132; BP diastolic 64–82; PULSE 47–71; RESP 15–22; TEMP 36.6–37.3; O2SAT 85–99
[2021-09-15] MEDS: Propofol 10MG/Ml 1,000 MG/100 ML Bottle 12.3 MG CONT INF (03:15)
[2021-09-15] MEDS: guaiFENesin 10 ML UDC (200MG/10ML) 20 ML GT ×3 (05:27→17:54)
[2021-09-15] MEDS: Propofol 10MG/Ml 1,000 MG/100 ML Bottle 18.5 MG CONT INF ×4 (05:38→21:21)
[2021-09-15 05:40] LABS: ALB/GLOB Ratio 0.5 RATIO (0.9-2.4); AST(SGOT) 75 U/L (15-37); Alanine Aminotransfer ALT/SGPT 77 U/L (16-61); Albumin, Serum 2.2 g/dL (3.2-5.0); Alkaline Phosphatase 90 U/L (45-117); Anion Gap 7 (5-15); BUN 41 mg/dL (7-18); BUN/Creat Ratio 37.3 RATIO (10-20); Calcium,Total 8.2 mg/dL (8.5-10.1); Chloride 106 mmol/L (98-107); EST Glomerular Filtration Rate 71 mL/min (>60); Est Glom Filt Rate - Afr Amer 86 mL/min (>60); Estimated Creatinine Clearance 68.45 ml/min; Globulin 4.5 g/dL (2.2-4.2); Glucose 124 mg/dL (74-106); Potassium 4.2 mmol/L (3.5-5.1); Protein, Total 6.7 g/dL (6.4-8.2); Sodium Level 140 mmol/L (136-145)
--- NOTE | 2021-09-15 05:42 | PCM.PN.INT ---
Assessment & Plan Assessment/Plan (1) Respiratory failure with hypoxia: QUALIFIERS: Chronicity: acute on chronic Qualified Code(s): J96.21 - Acute and chronic respiratory failure with hypoxia (2) Pneumonia due to COVID-19 virus: (3) COPD exacerbation: (4) Asthma: PLAN: RECOMMENDATIONS: 1. Continue assist control mode of mechanical ventilation. Wean FiO2/PEEP for saturations greater than 90%. 2. Continue empiric antimicrobials, pending finalized culture results. 3. Okay to start tube feeds today from my perspective. 4. Continue Decadron and remdesivir as ordered. 5. Continue bronchodilator therapy. 6. Continue appropriate GI and DVT prophylaxis. IMPRESSIONS: 1. Acute hypoxic respiratory failure secondary to COVID-19 in setting of asthma/COPD overlap The patient was initially admitted to the hospital in September 11 with worsening respiratory failure. The patient's oxygenation status has continued to worsen over the course of his hospitalization. The patient was ultimately transferred to the ICU and intubated on September 14. Plan to continue current supportive measures. The patient will be maintained on assist control mode of mechanical ventilation. FiO2 and PEEP will be weaned as tolerated. Remdesivir and Decadron will be continued as well. Continue empiric antimicrobials pending finalized culture results. 2. Obesity/advanced age/Crohn's disease/chronic pancreatitis/obesity/GERD Complicates care, management, recovery and prognosis. Okay to continue with baseline cholestyramine and Creon regimen from my perspective. Start tube feeds today and advance as tolerated. TIME: 34 minutes of critical care time, inclusive of procedures, was spent addressing the patient's acute hypoxemic respiratory failure secondary to COVID-19, review of all data and collaboration with the care team. Subjective Subjective The patient was seen and examined at the bedside this morning. Events from the last 24 hours have been reviewed. Today is vent day #2. The patient is currently afebrile, hemodynamically stable and maintaining appropriate oxygen saturations on assist control mode of mechanical ventilation with an FiO2 requirement of 90% and PEEP of 10. The patient is currently documented to be overall net +2 L for the hospitalization. He remains on remdesivir, empiric antimicrobials, Decadron and prophylactic Lovenox. The patient is sedated on propofol and fentanyl. Objective Data Objective Data The patient's most recent lab work, culture data and imaging studies have all been personally reviewed. Rapid coronavirus antigen testing was positive on September 09. Vital Signs: Vital Signs Temp Pulse Resp BP Pulse Ox 98.9 F 50 L 19 H 111/72 89 09/15/21 05:00 09/15/21 05:02 09/15/21 05:02 09/15/21 05:00 09/15/21 05:02 Oxygen Flow Rate (L/min) 60 Oxygen Delivery Method Mechanical Ventilator Weight: 101.1 kg Body Mass Index (BMI) 32.6 Intake & Output: Intake and Output for Last 24 Hours 09/13/21 09/14/21 09/15/21 23:59 23:59 23:59 Intake Total 830.00 / 980.00 1410.80 / 1433.10 465.95 / 465.95 Output Total 1250 / 1450 895 / 895 180 / 180 Balance -420.00 / -470.00 515.80 / 538.10 285.95 / 285.95 Medical Nutrition Assessment Dietitian: Malnutrition Criteria Met Start: 09/14/21 11:54 Freq: Status: Active Protocol: Document 09/14/21 11:54 RMA (Rec: 09/14/21 11:54 RMA [id number]) Nutrition Malnutrition Evidence of Malnutrition Exists Yes Malnutrition (severe): Acute Illness/Injury Evidenced By Suboptimal Energy Intake ( Severe),Weight Loss (Severe) Clinical Problem Acute Disease or Injury Related Malnutrition Etiology Severe protein/calorie malnutrition in the context of acute illness 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 PO nutrition depending on oxygen demand. TF support as needed if pt requires intubation--consult RD for TF management and order . Advance PO diet as medically able to regular diet as tolerated; ONS as indicated if able to take PO nutrition. Lab / Micro Data Attestation: I reviewed the patient's lab results. Result Diagrams: 09/15/21 03:25 09/15/21 03:25 Labs: Laboratory Results - last 24 hr 09/13/21 06:00: Diff Path Review Reviewed 09/14/21 07:04: WBC 13.9 H, RBC 5.18, Hgb 15.6, Hct 46.8, MCV 90.3, MCH 30.1, MCHC 33.3, RDW Std Deviation 42.2, RDW Coeff of Zachary 12.7, Plt Count 253, MPV 9.5, Neut % (Auto) Not Reportable, Absolute Neuts (auto) 10.4 H, Absolute Lymphs (auto) 4.70 H, Total Counted 100, Neutrophils % (Manual) 75 H, Lymphocytes % (Manual) 12 L, Monocytes % (Manual) 3, Metamyelocytes % 2 H, Myelocytes % 8 H, Diff Path Review Reviewed 09/14/21 07:04: Sodium 139, Potassium 3.8, Chloride 105, Carbon Dioxide 28.0, Anion Gap 6, BUN 35 H, Creatinine 0.86, Estim Creat Clear Calc 87.56, Est GFR (MDRD) Af Amer 113, Est GFR (MDRD) Non-Af 93, BUN/Creatinine Ratio 40.5 H, Glucose 106, Calcium 8.6, Total Bilirubin 1.40 H, AST 40 H, ALT 44, Alkaline Phosphatase 87, Total Protein 6.9, Albumin 2.3 L, Globulin 4.6 H, Albumin/Globulin Ratio 0.5 L 09/14/21 07:04: Total Creatine Kinase 66, Triglycerides 68 09/15/21 03:25: Sodium 140, Potassium 4.2, Chloride 106, Carbon Dioxide 27.0, Anion Gap 7, BUN 41 H, Creatinine 1.10, Estim Creat Clear Calc 68.45, Est GFR (MDRD) Af Amer 86, Est GFR (MDRD) Non-Af 71, BUN/Creatinine Ratio 37.3 H, Glucose 124 H, Calcium 8.2 L, Total Bilirubin 3.00 H, AST 75 H, ALT 77 H, Alkaline Phosphatase 90, Total Protein 6.7, Albumin 2.2 L, Globulin 4.5 H, Albumin/Globulin Ratio 0.5 L Micro: Microbiology 09/14/21 10:50 Sputum, Induced/Lukens Gram Stain - Final 09/12/21 10:43 Sputum, Expectorated/Coughed Gram Stain - Final 09/12/21 10:43 Sputum, Expectorated/Coughed Respiratory Culture - Final 09/12/21 10:43 Urine, Random Legionella Antigen - Final 09/12/21 10:43 Urine, Random Streptococcus pneumoniae Antigen (M - Final ABG Data ABG results: ABG 09/14/21 13:09 Specimen Type ART Sample Site L Radial pH 7.44 Bicarbonate Actual 29.6 H Total CO2 31 Base Excess 6 H O2 Saturation 99 O2 % 100 ABG pCO2 43.6 ABG pO2 145 H Daniel Test Positive Respiration Rate 15 O2 Delivery Device Adult Vent Vent Mode AC Tidal Volume 500 POC PEEP 10 Radiography Diagnostic Testing: Radiology Impression Chest X-Ray 09/14/21 10:55 IMPRESSION: Support tubes are in good position. Persistent bilateral pulmonary infiltrates although there has been some improvement as compared to prior study. Electronically Signed: Ike Metcalf MD at 12:05 EST , Service support , KUB X-Ray 09/14/21 12:55 IMPRESSION: The tip of the orogastric tube is just distal to the gastroesophageal junction. Electronically Signed: Ike Metcalf MD at 13:32 EST , Service support , Physical Exam Const General Appearance: intubated and patient mechanically ventilated Nutritional Appearance: obese HEENT normocephalic and head/scalp atraumatic Mouth: endotracheal tube in place and OG tube in place Eyes PERRL, EOMs intact bilaterally and conjunctivae normal Neck supple General: trachea midline Chest inspection of chest normal Resp Effort and Inspection: tachypneic and labored Auscultation: diminished lung sounds Cardio regular rate and regular rhythm GI normal to inspection, nondistended, normoactive bowel sounds Extremity no clubbing, cyanosis or edema Skin no rashes or lesions noted Neuro Sensorium / Orientation: sedated on vent Charges/Coding Procedures Hospitalists Procedures: 25685 Critial Care 1st Hr
[2021-09-15 06:04] LABS: Absolute Lymphocyte Count 1.15 X10^3/uL (0.83-4.51); Absolute Neutrophil Count 11.9 X10^3/uL (2.0-7.7); Basophil# 0.05 X10^3/uL; Basophil% 0.3 % (0-1); Hematocrit 43.4 % (40-54); Hemoglobin 14.7 g/dL (13.0-16.5); Lymphocyte # 1.15 X10^3/ul (0.83-4.51); Lymphocyte % 7.6 % (19-41); Mean Corp Hgb Conc 33.9 g/dL (32-36); Mean Corpuscular Hgb 30.9 pg (27.0-32.0); Mean Corpuscular Volume 91.4 fL (80-94); Mean Platelet Vol. 10.5 fl (6.2-12.0); Monocyte# 1.57 X10^3/uL; Monocyte% 10.3 % (0-10); NRBC Flagged by Analyzer 0 % (0-5); Neutrophil % 78.1 % (47-70); POSITIVE DIFFERENTIAL YES; Platelet Count 255 K/mm3 (150-450); RBC Distribution Width CV 12.9 % (11.6-14.6); RBC Distribution Width SD 43.5 fl (35.1-43.9); Red Blood Count 4.75 M/mm3 (4.6-6.2); White Blood Count 15.2 K/mm3 (4.4-11.0)
[2021-09-15 06:11] LABS: Differential Indicated SCAN CRITERIA MET
[2021-09-15] MEDS: Albuterol 2.5 MG/3 ML VIAL.NEB. INHALATION ×3 (07:23→19:06)
[2021-09-15] MEDS: Chlorhexidine 15 ML PO ×2 (08:25→20:58)
[2021-09-15] MEDS: dexAMETHasone 10 MG/ML Vial 6 MG IV (10:09)
[2021-09-15] MEDS: Enoxaparin 30 MG/0.3 ML Syringe SC ×2 (10:09→20:57)
[2021-09-15] MEDS: Senna/Docusate Sodium 1 Tablet 2 TABLET GT ×2 (10:09→20:58)
[2021-09-15] MEDS: Lansoprazole 15 MG Capsule.DR 30 MG GT (10:09)
[2021-09-15] MEDS: CHLORHEXIDINE GLUC 2% CLOTH 1 EACH TOWELETTE TOPICAL (10:10)
[2021-09-15] MEDS: Vital AF 1.2 Cal Liquid 1,000 ML 70 ML GT (14:06)
--- NOTE | 2021-09-15 14:13 | PN.HOSP_ITS ---
Subjective Subjective Patient seen and examined. He was emergently transferred to the ICU yesterday and intubated. He is currently intubated and sedated. Patient noted to be bradycardic with heart rate in the 50s. He is mildly tachypneic. Unable to do review of systems as he is intubated and sedated. Objective Data Objective Data Vital Signs: Vital Signs Temp Pulse Resp BP Pulse Ox 99.0 F 52 L 21 H 114/68 91 09/15/21 12:00 09/15/21 13:14 09/15/21 13:14 09/15/21 12:00 09/15/21 13:14 Oxygen Flow Rate (L/min) 60 Oxygen Delivery Method Mechanical Ventilator Weight: 222 lb 14.197 oz Body Mass Index (BMI) 32.6 Intake & Output: Intake and Output for Last 24 Hours 09/13/21 09/14/21 09/15/21 23:59 23:59 23:59 Intake Total 830.00 / 980.00 1410.80 / 1433.10 1467.73 / 1467.73 Output Total 1250 / 1450 895 / 895 180 / 180 Balance -420.00 / -470.00 515.80 / 538.10 1287.73 / 1287.73 Medical Nutrition Assessment Dietitian: Malnutrition Criteria Met Start: 09/14/21 11:54 Freq: Status: Active Protocol: Document 09/14/21 11:54 RMA (Rec: 09/14/21 11:54 RMA [id number]) Nutrition Malnutrition Evidence of Malnutrition Exists Yes Malnutrition (severe): Acute Illness/Injury Evidenced By Suboptimal Energy Intake ( Severe),Weight Loss (Severe) Clinical Problem Acute Disease or Injury Related Malnutrition Etiology Severe protein/calorie malnutrition in the context of acute illness 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 PO nutrition depending on oxygen demand. TF support as needed if pt requires intubation--consult RD for TF management and order . Advance PO diet as medically able to regular diet as tolerated; ONS as indicated if able to take PO nutrition. Lab / Micro Data Result Diagrams: 09/15/21 03:25 09/15/21 03:25 Labs: Laboratory Results - last 24 hr 09/15/21 03:25: WBC 15.2 H, RBC 4.75, Hgb 14.7, Hct 43.4, MCV 91.4, MCH 30.9, MCHC 33.9, RDW Std Deviation 43.5, RDW Coeff of Zachary 12.9, Plt Count 255, MPV 10.5, Immature Gran % (Auto) 3.700 H, Neut % (Auto) 78.1 H, Lymph % (Auto) 7.6 L , Boyd % (Auto) 10.3 H, Eos % (Auto) 0.0, Baso % (Auto) 0.3, Absolute Neuts (auto) 11.9 H, Absolute Lymphs (auto) 1.15, Nucleated RBC % 0, Diff Path Review January09/15/21 03:25: Sodium 140, Potassium 4.2, Chloride 106, Carbon Dioxide 27.0, Anion Gap 7, BUN 41 H, Creatinine 1.10, Estim Creat Clear Calc 68.45, Est GFR (MDRD) Af Amer 86, Est GFR (MDRD) Non-Af 71, BUN/Creatinine Ratio 37.3 H, Gl ucose 124 H, Calcium 8.2 L, Total Bilirubin 3.00 H, AST 75 H, ALT 77 H, Alkaline Phosphatase 90, Total Protein 6.7, Albumin 2.2 L, Globulin 4.5 H, Albumin/Globulin Ratio 0.5 L Micro: Microbiology 09/14/21 10:50 Sputum, Induced/Lukens Gram Stain - Final 09/14/21 10:50 Sputum, Induced/Lukens Respiratory Culture - Preliminary Beta streptococcus 09/12/21 10:43 Sputum, Expectorated/Coughed Gram Stain - Final 09/12/21 10:43 Sputum, Expectorated/Coughed Respiratory Culture - Final 09/12/21 10:43 Urine, Random Legionella Antigen - Final 09/12/21 10:43 Urine, Random Streptococcus pneumoniae Antigen (M - Final Physical Exam Const Constitutional Narrative: intubated, sedated, RASS score is -4 Exam Limitations: altered mental status HEENT head/scalp atraumatic Head and Scalp: normocephalic Mouth: dry mucous membranes Eyes PERRL and conjunctivae normal Neck no lymphadenopathy and no JVD Resp Resp Narrative: diminished breath sounds bibasally, few bilateral crackles. intubated and sedated. Cardio regular rhythm, S1 normal heart sound, S2 normal heart sound and no murmurs Cardio Narrative: bradycardic GI normal to inspection, nondistended, normoactive bowel sounds, soft to palpation and non-tender Extremity normal to inspection and no clubbing, cyanosis or edema Peripheral Pulses: Yes pulses 2+ throughout Skin no rashes or lesions noted Neuro Neuro Narrative: intubated, sedated, RASS score is -4 Assessment & Plan Assessment/Plan (1) Pneumonia due to COVID-19 virus: (2) Respiratory failure with hypoxia: QUALIFIERS: Chronicity: acute on chronic Qualified Code(s): J96.21 - Acute and chronic respiratory failure with hypoxia (3) Transaminitis: PLAN: #Acute hypoxic respiratory failure due to covid 19 pneumonia * intubated and sedated. * on remdesivir and decadron. * titrate oxygen to maintain sats >90% * breathing treatment with bronchodilators. * on IV vancomycin and meropenem. * diurese as needed to maintain euvolemic status * critical care on board * sputum culture pending * * #Mild transaminitis: * Total bilirubin trended upwards to 3 overnight. * AST and ALT have also trended up to the 70s. * Will monitor. #Lactic acidosis: Resolved #History of Crohn's disease: S/p bowel resection. On Humira which is on hold in light of acute illness #History of chronic pancreatitis: On cholestyramine and Creon #GERD: On PPI #Nutrition: tube feeding. #Severe malnutrition: * has 5-7% weight loss in less than a week and poor intake. * TO have enteral nutrition support , and tube feeding as needed. 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 * DVT prophylaxis: Lovenox CODE STATUS: * Full code. * Charges/Coding Visit Charges Inpatient E&M: 00238 [facility] L3
[2021-09-15] MEDS: Cholestyramine/Sucrose 4 GM/PACKET GT (21:44)
[2021-09-16] VITALS (33 sets, daily range): BP systolic 100–132; BP diastolic 63–77; PULSE 44–62; RESP 12–24; TEMP 36.8–37.6; O2SAT 90–94
[2021-09-16] MEDS: Propofol 10MG/Ml 1,000 MG/100 ML Bottle 18.5 MG CONT INF ×5 (00:32→19:00)
[2021-09-16] MEDS: guaiFENesin 10 ML UDC (200MG/10ML) 20 ML GT ×5 (00:50→23:46)
[2021-09-16 03:59] LABS: Hematocrit 40.4 % (40-54); Hemoglobin 13.6 g/dL (13.0-16.5); Mean Corp Hgb Conc 33.7 g/dL (32-36); Mean Corpuscular Hgb 30.6 pg (27.0-32.0); Mean Corpuscular Volume 90.8 fL (80-94); Mean Platelet Vol. 9.9 fl (6.2-12.0); POSITIVE COUNT YES; POSITIVE MORPHOLOGY YES; Platelet Count 296 K/mm3 (150-450); RBC Distribution Width CV 12.8 % (11.6-14.6); RBC Distribution Width SD 42.4 fl (35.1-43.9); Red Blood Count 4.45 M/mm3 (4.6-6.2); White Blood Count 16.6 K/mm3 (4.4-11.0)
[2021-09-16 04:10] LABS: Differential Indicated MANUAL DIFF
[2021-09-16 04:24] LABS: ALB/GLOB Ratio 0.5 RATIO (0.9-2.4); AST(SGOT) 67 U/L (15-37); Alanine Aminotransfer ALT/SGPT 65 U/L (16-61); Albumin, Serum 1.9 g/dL (3.2-5.0); Alkaline Phosphatase 74 U/L (45-117); Anion Gap 6 (5-15); BUN 36 mg/dL (7-18); Calcium,Total 7.8 mg/dL (8.5-10.1); Chloride 107 mmol/L (98-107); Creatinine, Serum 0.73 mg/dL (0.70-1.30); EST Glomerular Filtration Rate 113 mL/min (>60); Est Glom Filt Rate - Afr Amer 136 mL/min (>60); Globulin 4.1 g/dL (2.2-4.2); Glucose 127 mg/dL (74-106); Sodium Level 140 mmol/L (136-145)
[2021-09-16 04:49] LABS: Absolute Neutrophil Count 14.1 X10^3/uL (2.0-7.7)
[2021-09-16 04:50] LABS: Absolute Lymphocyte Count 0.83 X10^3/uL (0.83-4.51); Lymphocyte 5 % (19-41); Metamyelocyte 1 % (0-1); Monocyte 7 % (0-10); Myelocyte 2 % (0-0); Neutrophil-Band 5 % (0-5); Neutrophil-Segmented 80 % (47-70); Platelet Estimate ADEQUATE (ADEQ); Red Cell Morphology NORM C+C NORMAL (NORM C&C); Total Cells Counted 100 (MANUAL DIFF)
--- NOTE | 2021-09-16 06:50 | PCM.PN.INT ---
Assessment & Plan Assessment/Plan (1) Respiratory failure with hypoxia: QUALIFIERS: Chronicity: acute on chronic Qualified Code(s): J96.21 - Acute and chronic respiratory failure with hypoxia (2) Pneumonia due to COVID-19 virus: (3) COPD exacerbation: (4) Asthma: PLAN: RECOMMENDATIONS: 1. Continue assist control mode of mechanical ventilation. Wean FiO2/PEEP for saturations greater than 90%. 2. Continue empiric antimicrobials, pending finalized culture results. 3. Continue tube feeds as tolerated. 4. Continue Decadron to complete treatment course. Remdesivir is completed. 5. Continue bronchodilator therapy. 6. Continue appropriate GI and DVT prophylaxis. 7. Diuretics, as needed, to maintain euvolemic state. IMPRESSIONS: 1. Acute hypoxic respiratory failure secondary to COVID-19 in setting of asthma/COPD overlap The patient was initially admitted to the hospital in September 11 with worsening respiratory failure. The patient's oxygenation status has continued to worsen over the course of his hospitalization. The patient was ultimately transferred to the ICU and intubated on September 14. Plan to continue current supportive measures. The patient will be maintained on assist control mode of mechanical ventilation. FiO2 and PEEP will be weaned as tolerated. The patient has completed a treatment course of remdesivir and will remain on Decadron to complete 10 days of therapy. Plan to continue empiric antimicrobials as well, pending finalized culture results. Will attempt gentle diuresis today as tolerated by hemodynamics and renal function. 2. Obesity/advanced age/Crohn's disease/chronic pancreatitis/obesity/GERD Complicates care, management, recovery and prognosis. Okay to continue with baseline cholestyramine and Creon regimen from my perspective. Continue tube feeds as tolerated. TIME: 33 minutes of critical care time, inclusive of procedures, was spent addressing the patient's acute hypoxemic respiratory failure secondary to COVID-19, review of all data and collaboration with the care team. Subjective Subjective The patient was seen and examined at the bedside this morning. Events from the last 24 hours have been reviewed. Today is vent day #3. The patient is currently afebrile, hemodynamically stable and maintaining appropriate oxygen saturations on assist control mode of mechanical ventilation with an FiO2 requirement of 90% and PEEP of 10. The patient is currently documented to be overall net +4.3 L for the hospitalization. He remains on empiric antimicrobials, Decadron and prophylactic Lovenox. He has completed his treatment course of remdesivir. The patient is sedated on propofol and fentanyl. He is currently tolerating tube feeds. No overnight issues were identified by the nursing staff. Renal function is stable. Objective Data Objective Data The patient's most recent lab work, culture data and imaging studies have all been personally reviewed. Rapid coronavirus antigen testing was positive on September 09. Sputum culture is pending. Vital Signs: Vital Signs Temp Pulse Resp BP Pulse Ox 98.6 F 47 L 16 111/67 91 09/16/21 06:00 09/16/21 06:00 09/16/21 06:00 09/16/21 06:00 09/16/21 06:00 Oxygen Flow Rate (L/min) 60 Oxygen Delivery Method Mechanical Ventilator Weight: 103.1 kg Body Mass Index (BMI) 32.6 Intake & Output: Intake and Output for Last 24 Hours 09/14/21 09/15/21 09/16/21 23:59 23:59 23:59 Intake Total 1410.80 / 1433.10 2604.74 / 3287.07 1172.20 / 1172.20 Output Total 895 / 895 680 / 1030 500 / 500 Balance 515.80 / 538.10 1924.74 / 2257.07 672.20 / 672.20 Medical Nutrition Assessment Dietitian: Malnutrition Criteria Met Start: 09/14/21 11:54 Freq: Status: Active Protocol: Document 09/14/21 11:54 RMA (Rec: 09/14/21 11:54 RMA [id number]) Nutrition Malnutrition Evidence of Malnutrition Exists Yes Malnutrition (severe): Acute Illness/Injury Evidenced By Suboptimal Energy Intake ( Severe),Weight Loss (Severe) Clinical Problem Acute Disease or Injury Related Malnutrition Etiology Severe protein/calorie malnutrition in the context of acute illness 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 PO nutrition depending on oxygen demand. TF support as needed if pt requires intubation--consult RD for TF management and order . Advance PO diet as medically able to regular diet as tolerated; ONS as indicated if able to take PO nutrition. Lab / Micro Data Attestation: I reviewed the patient's lab results. Result Diagrams: 09/16/21 03:40 09/16/21 03:40 Labs: Laboratory Results - last 24 hr 09/15/21 03:25: Diff Path Review January foll 09/16/21 03:40: WBC 16.6 H, RBC 4.45 L, Hgb 13.6, Hct 40.4, MCV 90.8, MCH 30.6, MCHC 33.7, RDW Std Deviation 42.4, RDW Coeff of Zachary 12.8, Plt Count 296, MPV 9.9, Neut % (Auto) Not Reportable, Absolute Neuts (auto) 14.1 H, Absolute Lymphs (auto) 0.83, Total Counted 100, Neutrophils % (Manual) 80 H, Band Neutrophils % 5, Lymphocytes % (Manual) 5 L, Monocytes % (Manual) 7, Metamyelocytes % 1, Myelocytes % 2 H, Diff Path Review January, Platelet Estimate ADEQUATE, RBC Morphology NORM C+C 09/16/21 03:40: Sodium 140, Potassium 4.0, Chloride 107, Carbon Dioxide 27.0, Anion Gap 6, BUN 36 H, Creatinine 0.73, Estim Creat Clear Calc 75.30, Est GFR (MDRD) Af Amer 136, Est GFR (MDRD) Non-Af 113, BUN/Creatinine Ratio 49.0 H, Glucose 127 H, Calcium 7.8 L, Total Bilirubin 1.50 H, AST 67 H, ALT 65 H, Alkaline Phosphatase 74, Total Protein 6.0 L, Albumin 1.9 L, Globulin 4.1, Albumin/Globulin Ratio 0.5 L Micro: Microbiology 09/14/21 10:50 Sputum, Induced/Lukens Gram Stain - Final 09/14/21 10:50 Sputum, Induced/Lukens Respiratory Culture - Preliminary Beta streptococcus 09/12/21 10:43 Sputum, Expectorated/Coughed Gram Stain - Final 09/12/21 10:43 Sputum, Expectorated/Coughed Respiratory Culture - Final 09/12/21 10:43 Urine, Random Legionella Antigen - Final 09/12/21 10:43 Urine, Random Streptococcus pneumoniae Antigen (M - Final Physical Exam Const Constitutional Narrative: No ventilator dyssynchrony. General Appearance: intubated and patient mechanically ventilated Nutritional Appearance: obese HEENT normocephalic and head/scalp atraumatic Mouth: endotracheal tube in place and OG tube in place Eyes PERRL, EOMs intact bilaterally and conjunctivae normal Neck supple General: trachea midline Chest inspection of chest normal Resp Effort and Inspection: tachypneic Auscultation: diminished lung sounds; Negative for rales, rhonchi or wheezes Cardio S1 normal heart sound and S2 normal heart sound Rate: bradycardia GI normal to inspection, nondistended, normoactive bowel sounds Extremity no clubbing, cyanosis or edema Skin no rashes or lesions noted Neuro Sensorium / Orientation: sedated on vent Charges/Coding Procedures Hospitalists Procedures: 81372 Critial Care 1st Hr
[2021-09-16] MEDS: Albuterol 2.5 MG/3 ML VIAL.NEB. INHALATION ×3 (07:19→19:02)
[2021-09-16] MEDS: Enoxaparin 30 MG/0.3 ML Syringe SC ×2 (08:42→20:37)
[2021-09-16] MEDS: Lansoprazole 15 MG Capsule.DR 30 MG GT (08:42)
[2021-09-16] MEDS: CHLORHEXIDINE GLUC 2% CLOTH 1 EACH TOWELETTE TOPICAL (08:43)
[2021-09-16] MEDS: Senna/Docusate Sodium 1 Tablet 2 TABLET GT ×2 (08:43→20:36)
[2021-09-16] MEDS: Furosemide 40 MG/4 ML Vial IV ×2 (08:44→17:24)
[2021-09-16] MEDS: dexAMETHasone 10 MG/ML Vial 6 MG IV (08:44)
[2021-09-16] MEDS: 0.9% Saline Lock 10 ML Syringe IV (08:44)
[2021-09-16] MEDS: Chlorhexidine 15 ML PO ×2 (08:47→20:37)
[2021-09-16 13:12] LABS: Pathologist Review Reviewed
[2021-09-16 13:19] LABS: Pathologist Review Reviewed
--- NOTE | 2021-09-16 13:23 | PN.HOSP_ITS ---
Subjective Subjective Patient seen and examined. He remains intubated and sedated. Total bilirubin is down to 1.5. Objective Data Objective Data Vital Signs: Vital Signs Temp Pulse Resp BP Pulse Ox 99.6 F H 53 L 14 111/70 91 09/16/21 12:00 09/16/21 12:00 09/16/21 12:00 09/16/21 12:00 09/16/21 12:00 Oxygen Flow Rate (L/min) 60 Oxygen Delivery Method Mechanical Ventilator Weight: 227 lb 4.745 oz Body Mass Index (BMI) 32.6 Intake & Output: Intake and Output for Last 24 Hours 09/14/21 09/15/21 09/16/21 23:59 23:59 23:59 Intake Total 1410.80 / 1433.10 2604.74 / 3287.07 2587.87 / 2587.87 Output Total 895 / 895 680 / 1030 2800 / 2800 Balance 515.80 / 538.10 1924.74 / 2257.07 -212.13 / -212.13 Medical Nutrition Assessment Dietitian: Malnutrition Criteria Met Start: 09/14/21 11:54 Freq: Status: Active Protocol: Document 09/16/21 10:38 AG (Rec: 09/16/21 10:38 AG [id number]) Nutrition Malnutrition Evidence of Malnutrition Exists Yes Malnutrition (severe): Acute Illness/Injury Evidenced By Suboptimal Energy Intake ( Severe),Weight Loss (Severe) Clinical Problem Acute Disease or Injury Related Malnutrition Etiology Severe protein/calorie malnutrition in the context of acute illness related to inadequate energy intake w/ increased energy needs d/t resp. failure Signs/Symptoms as evidenced by 3kg/3% wt loss in less than 1 week and ongoing poor intake meeting less than 50% estimated nutrition needs; currently NPO due to intubation Status Active Problem Recommendation Dietitian Recommendations/Changes NPO while intubated; via OGT- Vital AF 1.2 at goal rate of 70mL/hour w/ 125mL H2O flush every 4 hours to provide 2016 calories, 126 g protein, and 2112mL fluid/day. Would start at 20mL/hour and increase by 15mL/hour every 8-12 hours as tolerated until goal rate is achieved. Lab / Micro Data Result Diagrams: 09/16/21 03:40 09/16/21 03:40 Labs: Laboratory Results - last 24 hr 09/15/21 03:25: Diff Path Review Reviewed 09/16/21 03:40: WBC 16.6 H, RBC 4.45 L, Hgb 13.6, Hct 40.4, MCV 90.8, MCH 30.6, MCHC 33.7, RDW Std Deviation 42.4, RDW Coeff of Zachary 12.8, Plt Count 296, MPV 9.9, Neut % (Auto) Not Reportable, Absolute Neuts (auto) 14.1 H, Absolute Lymphs (auto) 0.83, Total Counted 100, Neutrophils % (Manual) 80 H, Band Neutrophils % 5, Lymphocytes % (Manual) 5 L, Monocytes % (Manual) 7, Metamyelocytes % 1, Myelocytes % 2 H, Diff Path Review Reviewed, Platelet Estimate ADEQUATE, RBC Morphology NORM C+C 09/16/21 03:40: Sodium 140, Potassium 4.0, Chloride 107, Carbon Dioxide 27.0, Anion Gap 6, BUN 36 H, Creatinine 0.73, Estim Creat Clear Calc 75.30, Est GFR (MDRD) Af Amer 136, Est GFR (MDRD) Non-Af 113, BUN/Creatinine Ratio 49.0 H, Glucose 127 H, Calcium 7.8 L, Total Bilirubin 1.50 H, AST 67 H, ALT 65 H, Alkaline Phosphatase 74, Total Protein 6.0 L, Albumin 1.9 L, Globulin 4.1, Albumin/Globulin Ratio 0.5 L Micro: Microbiology 09/14/21 10:50 Sputum, Induced/Lukens Gram Stain - Final 09/14/21 10:50 Sputum, Induced/Lukens Respiratory Culture - Preliminary Streptococcus group B 09/12/21 10:43 Sputum, Expectorated/Coughed Gram Stain - Final 09/12/21 10:43 Sputum, Expectorated/Coughed Respiratory Culture - Final 09/12/21 10:43 Urine, Random Legionella Antigen - Final 09/12/21 10:43 Urine, Random Streptococcus pneumoniae Antigen (M - Final Physical Exam Narrative . Const Constitutional Narrative: intubated, sedated, RASS score is -4 Exam Limitations: altered mental status Nutritional Appearance: obese HEENT head/scalp atraumatic and oropharynx normal Eyes PERRL, EOMs intact bilaterally and conjunctivae normal Neck no lymphadenopathy and no JVD Resp Resp Narrative: diminished breath sounds bibasally, few bilateral crackles. intubated and sedated. Auscultation: Negative for rales, rhonchi or wheezes Cardio regular rate, regular rhythm, S1 normal heart sound, S2 normal heart sound, no murmurs, no rub, no gallops, no clicks and no JVD Cardio Narrative: bradycardic GI normal to inspection, nondistended, normoactive bowel sounds, soft to palpation, non-tender and non-distended Extremity normal to inspection, full ROM and no clubbing, cyanosis or edema Skin no rashes or lesions noted Neuro Neuro Narrative: intubated, sedated, RASS score is -4 Assessment & Plan Assessment/Plan (1) Pneumonia due to COVID-19 virus: (2) Respiratory failure with hypoxia: QUALIFIERS: Chronicity: acute on chronic Qualified Code(s): J96.21 - Acute and chronic respiratory failure with hypoxia (3) Transaminitis: PLAN: #Acute hypoxic respiratory failure due to covid 19 pneumonia * remains intubated and sedated. * on remdesivir and decadron. completed a course of remdesivir. On decadron, to complete a 10 day course. * titrate oxygen to maintain sats >90% * breathing treatment with bronchodilators. * on IV vancomycin and meropenem. * diurese as needed to maintain euvolemic status * critical care on board * sputum culture pending * * #Mild transaminitis: * Total bilirubin trended downwards to 1.5 * AST and ALT have also trended down today to the 60s * Will monitor. #Lactic acidosis: Resolved #History of Crohn's disease: S/p bowel resection. On Humira which is on hold in light of acute illness #History of chronic pancreatitis: On cholestyramine and Creon #GERD: On PPI #Nutrition: tube feeding. #Severe malnutrition: * has 5-7% weight loss in less than a week and poor intake. * TO have enteral nutrition support , and tube feeding as needed. * Manager Programs on board. * DVT prophylaxis: Lovenox CODE STATUS: * Full code. * Charges/Coding Visit Charges Inpatient E&M: 53765 [facility] Hosp L3
--- NOTE | 2021-09-16 16:12 | PCM.RX.CS ---
Consult Pharmacy has been consulted to manage selected antiobiotic: Vancomycin Type of Consult: Follow-up Suspected Infection: Pneumonia Prior Doses of Antibiotics Received/Current Regimen: 1750mg iv q12h. Labs: Sodium 140 mmol/L (136-145) 09/16/21 03:40 Potassium 4.0 mmol/L (3.5-5.1) 09/16/21 03:40 Chloride 107 mmol/L (98-107) 09/16/21 03:40 Carbon Dioxide 27.0 mmol/L (21.0-32.0) 09/16/21 03:40 Anion Gap 6 (5-15) 09/16/21 03:40 BUN 36 mg/dL (7-18) H 09/16/21 03:40 Creatinine 0.73 mg/dL (0.70-1.30) 09/16/21 03:40 Est GFR (MDRD) Af Amer 136 mL/min (>60) 09/16/21 03:40 Est GFR (MDRD) Non-Af 113 mL/min (>60) 09/16/21 03:40 BUN/Creatinine Ratio 49.0 RATIO (10-20) H 09/16/21 03:40 Glucose 127 mg/dL (74-106) H 09/16/21 03:40 Vancomycin Trough 21.0 ug/mL (5.0-15.0) H 09/16/21 14:45 Microbiology: Microbiology 09/14/21 10:50 Sputum, Induced/Lukens Gram Stain - Final 09/14/21 10:50 Sputum, Induced/Lukens Respiratory Culture - Preliminary Streptococcus group B 09/12/21 10:43 Sputum, Expectorated/Coughed Gram Stain - Final 09/12/21 10:43 Sputum, Expectorated/Coughed Respiratory Culture - Final 09/12/21 10:43 Urine, Random Legionella Antigen - Final 09/12/21 10:43 Urine, Random Streptococcus pneumoniae Antigen (M - Final Weight used for dosin kg Estimated Creatinine Clearance: 75 ml/min Goal Trough: 15-20 mcg/mL Pharmacy Plan for Drug Dosing: Trough today was 21.0. Renal improved from Cr 1.1 to 0.73. Will decrease dose to 1500mg iv q12h and get another trough before 4th dose of new regimen. Pharmacy Service will continue to monitor and adjust dosing as required. Follow-Up Labs: Trough Vancomycin - 1.14.22@1430 before 1500 dose
[2021-09-16] MEDS: Vital AF 1.2 Cal Liquid 1,000 ML 70 ML GT (17:24)
[2021-09-16] MEDS: Cholestyramine/Sucrose 4 GM/PACKET GT (20:38)
[2021-09-16] MEDS: Menthol/Lanolin/Calamine/Znox 113 GM Tube 1 APPLIC TOPICAL (20:38)
[2021-09-16] MEDS: Polyethylene Glycol 3350 17 GM PACKET GT (20:38)
--- NOTE | 2021-09-16 21:04 | NURSING ---
Residual < 10 ml. Increased TF to 65ml/hr.
[2021-09-17] VITALS (35 sets, daily range): BP systolic 96–145; BP diastolic 65–91; PULSE 49–96; RESP 12–34; TEMP 37.4–38.2; O2SAT 86–95
[2021-09-17] MEDS: Propofol 10MG/Ml 1,000 MG/100 ML Bottle 15.4 MG CONT INF ×2 (03:30)
[2021-09-17 03:43] LABS: Hematocrit 40.3 % (40-54); Hemoglobin 13.8 g/dL (13.0-16.5); Mean Corp Hgb Conc 34.2 g/dL (32-36); Mean Corpuscular Hgb 30.7 pg (27.0-32.0); Mean Corpuscular Volume 89.8 fL (80-94); Mean Platelet Vol. 10.2 fl (6.2-12.0); POSITIVE COUNT YES; POSITIVE MORPHOLOGY YES; Platelet Count 308 K/mm3 (150-450); RBC Distribution Width CV 12.7 % (11.6-14.6); RBC Distribution Width SD 41.8 fl (35.1-43.9); Red Blood Count 4.49 M/mm3 (4.6-6.2); White Blood Count 20.6 K/mm3 (4.4-11.0)
[2021-09-17 03:54] LABS: Differential Indicated MANUAL DIFF
[2021-09-17 04:18] LABS: Absolute Lymphocyte Count 0.41 X10^3/uL (0.83-4.51); Absolute Neutrophil Count 17.7 X10^3/uL (2.0-7.7); Blast 1 % (0-0); Eosinophil 1 % (0-5); Lymphocyte 2 % (19-41); Metamyelocyte 0 % (0-1); Monocyte 6 % (0-10); Myelocyte 3 % (0-0); Neutrophil-Band 3 % (0-5); Neutrophil-Segmented 83 % (47-70); Promyelocyte 1 % (0-0); Total Cells Counted 100 (MANUAL DIFF)
[2021-09-17 04:19] LABS: Platelet Estimate ADEQUATE (ADEQ); Red Cell Morphology NORM C+C NORMAL (NORM C&C)
[2021-09-17] MEDS: TITRATION PARAMETER CHANGE 1 EACH IV (05:09)
[2021-09-17] MEDS: guaiFENesin 10 ML UDC (200MG/10ML) 20 ML GT ×4 (05:48→23:40)
--- NOTE | 2021-09-17 06:38 | PCM.PN.INT ---
Assessment & Plan Assessment/Plan (1) Respiratory failure with hypoxia: QUALIFIERS: Chronicity: acute on chronic Qualified Code(s): J96.21 - Acute and chronic respiratory failure with hypoxia (2) Pneumonia due to COVID-19 virus: (3) COPD exacerbation: (4) Asthma: PLAN: RECOMMENDATIONS: 1. Continue assist control mode of mechanical ventilation. Wean FiO2/PEEP for saturations greater than 90%. 2. Continue empiric antimicrobials to complete 7-day treatment course. 3. Continue tube feeds as tolerated. 4. Continue Decadron to complete treatment course. Remdesivir is completed. 5. Continue bronchodilator therapy. 6. Continue appropriate GI and DVT prophylaxis. 7. Diuretics, as needed, to maintain euvolemic state. IMPRESSIONS: 1. Acute hypoxic respiratory failure secondary to COVID-19 in setting of asthma/COPD overlap The patient was initially admitted to the hospital in September 11 with worsening respiratory failure. The patient's oxygenation status has continued to worsen over the course of his hospitalization. The patient was ultimately transferred to the ICU and intubated on September 14. Plan to continue current supportive measures. The patient will be maintained on assist control mode of mechanical ventilation. FiO2 and PEEP will be weaned as tolerated. The patient has completed a treatment course of remdesivir and will remain on Decadron to complete 10 days of therapy. Plan to continue empiric antimicrobials as well, pending finalized culture results. Continue diuretic therapy as tolerated by hemodynamics and renal function. 2. Obesity/advanced age/Crohn's disease/chronic pancreatitis/obesity/GERD Complicates care, management, recovery and prognosis. Okay to continue with baseline cholestyramine and Creon regimen from my perspective. Continue tube feeds as tolerated. TIME: 32 minutes of critical care time, inclusive of procedures, was spent addressing the patient's acute hypoxemic respiratory failure secondary to COVID-19, review of all data and collaboration with the care team. Subjective Subjective The patient was seen and examined at the bedside this morning. Events from the last 24 hours have been reviewed. Today is vent day #4. The patient is currently afebrile, hemodynamically stable and maintaining appropriate oxygen saturations on assist control mode of mechanical ventilation with an FiO2 requirement of 90% and PEEP of 10. The patient is currently documented to be overall net +4.6 L for the hospitalization. He remains on empiric antimicrobials, Decadron and prophylactic Lovenox. He has completed his treatment course of remdesivir. The patient is sedated on propofol and fentanyl. He is currently tolerating tube feeds. No secretions were noted from the patient's endotracheal tube. Objective Data Objective Data The patient's most recent lab work, culture data and imaging studies have all been personally reviewed. Rapid coronavirus antigen testing was positive on September 09. Sputum culture is pending. Vital Signs: Vital Signs Temp Pulse Resp BP Pulse Ox 99.4 F H 49 L 14 114/69 92 09/17/21 06:00 09/17/21 06:00 09/17/21 06:00 09/17/21 06:00 09/17/21 06:00 Oxygen Flow Rate (L/min) 60 Oxygen Delivery Method Mechanical Ventilator Weight: 101.9 kg Body Mass Index (BMI) 32.6 Intake & Output: Intake and Output for Last 24 Hours 09/15/21 09/16/21 09/17/21 23:59 23:59 23:59 Intake Total 2604.74 / 3287.07 4420.02 / 4712.72 / 2003. Output Total 680 / 1030 4950 / 4950 500 / 500 Balance 1924.74 / 2257.07 -529.98 / -237.28 1504.02 / 1504.02 Medical Nutrition Assessment Dietitian: Malnutrition Criteria Met Start: 09/14/21 11:54 Freq: Status: Active Protocol: Document 09/16/21 10:38 AG (Rec: 09/16/21 10:38 AG [id number]) Nutrition Malnutrition Evidence of Malnutrition Exists Yes Malnutrition (severe): Acute Illness/Injury Evidenced By Suboptimal Energy Intake ( Severe),Weight Loss (Severe) Clinical Problem Acute Disease or Injury Related Malnutrition Etiology Severe protein/calorie malnutrition in the context of acute illness related to inadequate energy intake w/ increased energy needs d/t resp. failure Signs/Symptoms as evidenced by 3kg/3% wt loss in less than 1 week and ongoing poor intake meeting less than 50% estimated nutrition needs; currently NPO due to intubation Status Active Problem Recommendation Dietitian Recommendations/Changes NPO while intubated; via OGT- Vital AF 1.2 at goal rate of 70mL/hour w/ 125mL H2O flush every 4 hours to provide 2016 calories, 126 g protein, and 2112mL fluid/day. Would start at 20mL/hour and increase by 15mL/hour every 8-12 hours as tolerated until goal rate is achieved. Lab / Micro Data Attestation: I reviewed the patient's lab results. Result Diagrams: 09/17/21 03:20 09/17/21 08:00 Labs: Laboratory Results - last 24 hr 09/15/21 03:25: Diff Path Review Reviewed 09/16/21 03:40: Diff Path Review Reviewed 09/16/21 14:45: Vancomycin Trough 21.0 H 09/17/21 03:20: WBC 20.6 H, RBC 4.49 L, Hgb 13.8, Hct 40.3, MCV 89.8, MCH 30.7, MCHC 34.2, RDW Std Deviation 41.8, RDW Coeff of Zachary 12.7, Plt Count 308, MPV 10.2, Neut % (Auto) Not Reportable, Absolute Neuts (auto) 17.7 H, Absolute Lymphs (auto) 0.41 L, Total Counted 100, Neutrophils % (Manual) 83 H, Band Neutrophils % 3, Lymphocytes % (Manual) 2 L, Monocytes % (Manual) 6, Eosinophils % (Manual) 1, Metamyelocytes % 0, Myelocytes % 3 H, Promyelocytes % 1 H, Blast Cells % 1 H*, Diff Path Review May foll, Platelet Estimate ADEQUATE, RBC Morphology NORM C+C Micro: Microbiology 09/14/21 10:50 Sputum, Induced/Lukens Gram Stain - Final 09/14/21 10:50 Sputum, Induced/Lukens Respiratory Culture - Preliminary Streptococcus group B 09/12/21 10:43 Sputum, Expectorated/Coughed Gram Stain - Final 09/12/21 10:43 Sputum, Expectorated/Coughed Respiratory Culture - Final 09/12/21 10:43 Urine, Random Legionella Antigen - Final 09/12/21 10:43 Urine, Random Streptococcus pneumoniae Antigen (M - Final Physical Exam Const Constitutional Narrative: No ventilator dyssynchrony. General Appearance: intubated and patient mechanically ventilated Nutritional Appearance: obese HEENT normocephalic and head/scalp atraumatic Mouth: endotracheal tube in place and OG tube in place Eyes PERRL, EOMs intact bilaterally and conjunctivae normal Neck supple General: trachea midline Chest inspection of chest normal Resp Auscultation: diminished lung sounds; Negative for rales, rhonchi or wheezes Cardio S1 normal heart sound and S2 normal heart sound Rate: bradycardia GI normal to inspection, nondistended, normoactive bowel sounds Extremity no clubbing, cyanosis or edema Skin no rashes or lesions noted Neuro Sensorium / Orientation: sedated on vent Charges/Coding Procedures Hospitalists Procedures: [id number] Critial Care 1st Hr
[2021-09-17] MEDS: Albuterol 2.5 MG/3 ML VIAL.NEB. INHALATION ×3 (07:02→19:40)
[2021-09-17] MEDS: Chlorhexidine 15 ML PO ×2 (08:00→20:10)
[2021-09-17 08:37] LABS: ALB/GLOB Ratio 0.4 RATIO (0.9-2.4); AST(SGOT) 39 U/L (15-37); Alanine Aminotransfer ALT/SGPT 44 U/L (16-61); Albumin, Serum 1.8 g/dL (3.2-5.0); Alkaline Phosphatase 73 U/L (45-117); Anion Gap 4 (5-15); BUN 36 mg/dL (7-18); BUN/Creat Ratio 41.9 RATIO (10-20); Calcium,Total 8.2 mg/dL (8.5-10.1); Chloride 104 mmol/L (98-107); Creatinine, Serum 0.86 mg/dL (0.70-1.30); EST Glomerular Filtration Rate 94 mL/min (>60); Est Glom Filt Rate - Afr Amer 114 mL/min (>60); Estimated Creatinine Clearance 87.56 ml/min; Globulin 4.5 g/dL (2.2-4.2); Glucose 162 mg/dL (74-106); Potassium 3.9 mmol/L (3.5-5.1); Protein, Total 6.3 g/dL (6.4-8.2); Sodium Level 138 mmol/L (136-145)
[2021-09-17] MEDS: Propofol 10MG/Ml 1,000 MG/100 ML Bottle 15.3 MG CONT INF (10:15)
[2021-09-17] MEDS: Vital AF 1.2 Cal Liquid 1,000 ML 70 ML GT (10:18)
[2021-09-17] MEDS: Menthol/Lanolin/Calamine/Znox 113 GM Tube 1 APPLIC TOPICAL ×2 (10:18→20:10)
[2021-09-17] MEDS: Enoxaparin 30 MG/0.3 ML Syringe SC ×2 (10:19→20:11)
[2021-09-17] MEDS: Lansoprazole 15 MG Capsule.DR 30 MG GT (10:19)
[2021-09-17] MEDS: dexAMETHasone 10 MG/ML Vial 6 MG IV (10:19)
[2021-09-17] MEDS: Senna/Docusate Sodium 1 Tablet 2 TABLET GT ×2 (10:20→20:11)
[2021-09-17] MEDS: Polyethylene Glycol 3350 17 GM PACKET GT ×2 (10:20→20:11)
--- NOTE | 2021-09-17 10:55 | PN.HOSP_ITS ---
Subjective Subjective Patient seen and examined. He remains intubated and sedated. He has some mild fever of 99.5 Fahrenheit. WBC today is 20.6. He is intermediate of positive balance by 4.8 L. Objective Data Objective Data Vital Signs: Vital Signs Temp Pulse Resp BP Pulse Ox 99.5 F H 59 L 18 136/76 H 92 09/17/21 08:00 09/17/21 08:00 09/17/21 08:00 09/17/21 08:00 09/17/21 08:00 Oxygen Flow Rate (L/min) 60 Oxygen Delivery Method Mechanical Ventilator Weight: 224 lb 10.417 oz Body Mass Index (BMI) 32.6 Intake & Output: Intake and Output for Last 24 Hours 09/15/21 09/16/21 09/17/21 23:59 23:59 23:59 Intake Total 2604.74 / 3287.07 4420.02 / 4712.72 2113.77 / 2113.77 Output Total 680 / 1030 4950 / 4950 500 / 500 Balance 1924.74 / 2257.07 -529.98 / -237.28 1613.77 / 1613.77 Medical Nutrition Assessment Dietitian: Malnutrition Criteria Met Start: 09/14/21 11:54 Freq: Status: Active Protocol: Document 09/17/21 10:13 AG (Rec: 09/17/21 10:13 [id number]) Nutrition Malnutrition Evidence of Malnutrition Exists Yes Malnutrition (severe): Acute Illness/Injury Evidenced By Suboptimal Energy Intake ( Severe),Weight Loss (Severe) Clinical Problem Acute Disease or Injury Related Malnutrition Etiology Severe protein/calorie malnutrition in the context of acute illness related to inadequate energy intake w/ increased energy needs d/t resp. failure Signs/Symptoms as evidenced by 4.2kg/4% wt loss x 1 week and ongoing poor intake meeting less than 50% estimated nutrition needs Status Active Problem Recommendation Dietitian Recommendations/Changes NPO while intubated; Vital AF 1.2 via OGT at goal rate of 70mL/hour w/ 125mL H2O flush every 4 hours to provide 2016 calories, 126 g protein, and 2112mL fluid/day. Lab / Micro Data Result Diagrams: 09/17/21 03:20 09/17/21 08:00 Labs: Laboratory Results - last 24 hr 09/15/21 03:25: Diff Path Review Reviewed 09/16/21 03:40: Diff Path Review Reviewed 09/16/21 14:45: Vancomycin Trough 21.0 H 09/17/21 03:20: WBC 20.6 H, RBC 4.49 L, Hgb 13.8, Hct 40.3, MCV 89.8, MCH 30.7, MCHC 34.2, RDW Std Deviation 41.8, RDW Coeff of Zachary 12.7, Plt Count 308, MPV 10.2, Neut % (Auto) Not Reportable, Absolute Neuts (auto) 17.7 H, Absolute Lymphs (auto) 0.41 L, Total Counted 100, Neutrophils % (Manual) 83 H, Band Neutrophils % 3, Lymphocytes % (Manual) 2 L, Monocytes % (Manual) 6, Eosinophils % (Manual) 1, Metamyelocytes % 0, Myelocytes % 3 H, Promyelocytes % 1 H, Blast Cells % 1 H*, Diff Path Review May , Platelet Estimate ADEQUATE, RBC Morphology NORM C+C 09/17/21 08:00: Sodium 138, Potassium 3.9, Chloride 104, Carbon Dioxide 30.0, Anion Gap 4 L, BUN 36 H, Creatinine 0.86, Estim Creat Clear Calc 87.56, Est GFR (MDRD) Af Amer 114, Est GFR (MDRD) Non-Af 94, BUN/Creatinine Ratio 41.9 H, Glucose 162 H, Calcium 8.2 L, Total Bilirubin 1.10 H, AST 39 H, ALT 44, Alkaline Phosphatase 73, Total Protein 6.3 L, Albumin 1.8 L, Globulin 4.5 H, Albumin/Globulin Ratio 0.4 L Micro: Microbiology 09/14/21 10:50 Sputum, Induced/Lukens Gram Stain - Final 09/14/21 10:50 Sputum, Induced/Lukens Respiratory Culture - Preliminary Streptococcus group B 09/12/21 10:43 Sputum, Expectorated/Coughed Gram Stain - Final 09/12/21 10:43 Sputum, Expectorated/Coughed Respiratory Culture - Final 09/12/21 10:43 Urine, Random Legionella Antigen - Final 09/12/21 10:43 Urine, Random Streptococcus pneumoniae Antigen (M - Final Physical Exam Narrative . Const alert, oriented x3 and no apparent distress Constitutional Narrative: intubated, sedated, RASS score is -4 Exam Limitations: altered mental status Nutritional Appearance: obese HEENT head/scalp atraumatic and oropharynx normal Eyes PERRL, EOMs intact bilaterally and conjunctivae normal Neck no lymphadenopathy and no JVD Resp Resp Narrative: diminished breath sounds bibasally, few bilateral crackles. intubated and sedated. Auscultation: Negative for rales, rhonchi or wheezes Cardio regular rhythm, S1 normal heart sound, S2 normal heart sound, no murmurs, no rub , no gallops, no clicks and no JVD Cardio Narrative: bradycardic GI normal to inspection, nondistended, normoactive bowel sounds, soft to palpation, non-tender and non-distended Extremity normal to inspection, full ROM and no clubbing, cyanosis or edema Peripheral Pulses: Yes pulses 2+ throughout Skin no rashes or lesions noted Neuro Neuro Narrative: intubated, sedated, RASS score is -4 Assessment & Plan Assessment/Plan (1) Pneumonia due to COVID-19 virus: (2) Respiratory failure with hypoxia: QUALIFIERS: Chronicity: acute on chronic Qualified Code(s): J96.21 - Acute and chronic respiratory failure with hypoxia (3) Transaminitis: PLAN: #Acute hypoxic respiratory failure due to covid 19 pneumonia * remains intubated and sedated. * on remdesivir and decadron. completed a course of remdesivir. On decadron, to complete a 10 day course. * titrate oxygen to maintain sats >90% * breathing treatment with bronchodilators. * on IV vancomycin and meropenem. * diurese as needed to maintain euvolemic status * critical care on board * sputum culture pending * * #Mild transaminitis: * Total bilirubin trended downwards to 1.1 * AST and ALT have also trended down today to normal * Will monitor. #History of Crohn's disease: S/p bowel resection. On Humira which is on hold in light of acute illness #History of chronic pancreatitis: On cholestyramine and Creon #GERD: On PPI #Nutrition: tube feeding. #Severe malnutrition: * has 5-7% weight loss in less than a week and poor intake. * TO have enteral nutrition support , and tube feeding as needed. * Computer Technical Specialist on board. * DVT prophylaxis: Lovenox CODE STATUS: * Full code. * Charges/Coding Visit Charges Inpatient E&M: 23033 Subs Hosp L3
[2021-09-17] MEDS: Furosemide 40 MG/4 ML Vial IV ×2 (12:18→18:12)
[2021-09-17] MEDS: Acetaminophen 325 MG Tablet 650 MG PO (12:26)
[2021-09-17] MEDS: 0.9% Saline Lock 10 ML Syringe IV (12:31)
[2021-09-17] MEDS: Propofol 10MG/Ml 1,000 MG/100 ML Bottle 21.4 MG CONT INF (12:35)
[2021-09-17 13:05] LABS: Pathologist Review Reviewed
--- NOTE | 2021-09-17 14:30 | RAD_ITS ---
STUDY: X-RAY CHEST REASON FOR EXAM: Male, 66 years old. SOB TECHNIQUE: Single AP portable view of the chest. COMPARISON: Comparison is made with prior study dated 09/14/2021. FINDINGS: An endotracheal tube is in situ. The tip is at 4.4 sinus proximal to the enrike. An orogastric tube is seen with the tip body of the stomach. A right-sided PICC line catheter is seen with the tip at the junction of the superior vena cava and right atrium. Residual mild bilateral pulmonary infiltrates persist although there has been a moderate degree of improvement as compared to prior study. There is no demonstrated pleural abnormality. Normal size heart. Normal mediastinum and trae. Normal visualized pulmonary arteries. Normal visualized aortic arch and descending thoracic aorta. There are diffuse degenerative changes of the visualized thoracic spine. Normal visualized ribs, clavicles, and shoulders. There is no demonstrated abnormality of the visualized soft tissue structures of the upper abdomen. RAD/Chest 1 View (Portable) IMPRESSION: Mild residual bilateral pulmonary infiltrates although there has been a moderate degree of improvement as compared to prior study. The support tubes are in good position. Electronically Signed: Ike Metcalf MD at 14:45 EST , Service support ,
[2021-09-17] MEDS: Propofol 10MG/Ml 1,000 MG/100 ML Bottle 12.2 MG CONT INF (16:58)
[2021-09-17 18:00] LABS: Bedside Glucose 198 mg/dL (70-110)
[2021-09-17] MEDS: Cholestyramine/Sucrose 4 GM/PACKET GT (20:11)
[2021-09-17] MEDS: CHLORHEXIDINE GLUC 2% CLOTH 1 EACH TOWELETTE TOPICAL (23:40)
[2021-09-18] VITALS (36 sets, daily range): BP systolic 110–162; BP diastolic 80–101; PULSE 78–139; RESP 12–36; TEMP 37.3–39.9; O2SAT 87–95
[2021-09-18] MEDS: Propofol 10MG/Ml 1,000 MG/100 ML Bottle 9.2 MG CONT INF (00:30)
[2021-09-18 03:19] LABS: Differential Indicated MANUAL DIFF; Hematocrit 43.2 % (40-54); Hemoglobin 14.7 g/dL (13.0-16.5); Mean Corpuscular Hgb 30.4 pg (27.0-32.0); Mean Corpuscular Volume 89.3 fL (80-94); Mean Platelet Vol. 9.8 fl (6.2-12.0); POSITIVE COUNT YES; POSITIVE DIFFERENTIAL YES; POSITIVE MORPHOLOGY YES; Platelet Count 306 K/mm3 (150-450); RBC Distribution Width SD 42.3 fl (35.1-43.9); Red Blood Count 4.84 M/mm3 (4.6-6.2)
[2021-09-18 03:40] LABS: Absolute Lymphocyte Count 0.75 X10^3/uL (0.83-4.51); Metamyelocyte 3 % (0-1); Myelocyte 2 % (0-0); Neutrophil-Band 10 % (0-5); Neutrophil-Segmented 78 % (47-70); Total Cells Counted 100 (MANUAL DIFF)
[2021-09-18 03:41] LABS: Lymphocyte 3 % (19-41); Monocyte 4 % (0-10); Platelet Estimate ADEQUATE (ADEQ); Red Cell Morphology NORM C+C NORMAL (NORM C&C)
[2021-09-18 03:48] LABS: ALB/GLOB Ratio 0.4 RATIO (0.9-2.4); AST(SGOT) 37 U/L (15-37); Alanine Aminotransfer ALT/SGPT 45 U/L (16-61); Albumin, Serum 1.9 g/dL (3.2-5.0); Alkaline Phosphatase 81 U/L (45-117); Anion Gap 8 (5-15); BUN 39 mg/dL (7-18); BUN/Creat Ratio 43.8 RATIO (10-20); Calcium,Total 8.3 mg/dL (8.5-10.1); Chloride 97 mmol/L (98-107); Creatinine, Serum 0.89 mg/dL (0.70-1.30); EST Glomerular Filtration Rate 90 mL/min (>60); Est Glom Filt Rate - Afr Amer 109 mL/min (>60); Estimated Creatinine Clearance 84.61 ml/min; Globulin 5.3 g/dL (2.2-4.2); Glucose 170 mg/dL (74-106); Potassium 4.1 mmol/L (3.5-5.1); Protein, Total 7.2 g/dL (6.4-8.2); Sodium Level 135 mmol/L (136-145)
[2021-09-18] MEDS: Acetaminophen 325 MG Tablet 650 MG PO (05:16)
[2021-09-18] MEDS: guaiFENesin 10 ML UDC (200MG/10ML) 20 ML GT ×4 (05:16→23:42)
[2021-09-18 05:56] LABS: Allen Test Positive; Base Excess 5 mmol/L (-2 to +2); Bicarbonate 28.4 mmol/L (22-26); Blood Gas Specimen Type ART; FI02 100; Mode BiLevel; O2 Delivery Device Adult Vent; PO2 58 mmHG (75-100); PS 5; RR 12; SITE L Radial; SO2 91 % (95-99); Total Carbon Dioxide 30 mmol/L; pCO2 39.8 mmHg (35-45); pH 7.46 (7.35-7.45)
--- NOTE | 2021-09-18 06:41 | PCM.PN.INT ---
Assessment & Plan Assessment/Plan (1) Respiratory failure with hypoxia: QUALIFIERS: Chronicity: acute on chronic Qualified Code(s): J96.21 - Acute and chronic respiratory failure with hypoxia (2) Pneumonia due to COVID-19 virus: (3) COPD exacerbation: (4) Asthma: PLAN: RECOMMENDATIONS: 1. Continue APRV as tolerated. Wean FiO2 for saturations greater than 90%. 2. Continue empiric antimicrobials to complete 7-day treatment course. 3. Continue tube feeds as tolerated. 4. Continue Decadron to complete treatment course. Remdesivir is completed. 5. Continue bronchodilator therapy. 6. Continue appropriate GI and DVT prophylaxis. 7. Diuretics, as needed, to maintain euvolemic state. IMPRESSIONS: 1. Acute hypoxic respiratory failure secondary to COVID-19 in setting of asthma/COPD overlap The patient was initially admitted to the hospital in September 11 with worsening respiratory failure. The patient's oxygenation status has continued to worsen over the course of his hospitalization. The patient was ultimately transferred to the ICU and intubated on September 14. Plan to continue current supportive measures. The patient will be maintained on APRV mode of mechanical ventilation. FiO2 will be weaned as tolerated. The patient has completed a treatment course of remdesivir and will remain on Decadron to complete 10 days of therapy. Plan to continue empiric antimicrobials as well, pending finalized culture results. Continue diuretic therapy as tolerated by hemodynamics and renal function. 2. Obesity/advanced age/Crohn's disease/chronic pancreatitis/obesity/GERD Complicates care, management, recovery and prognosis. Okay to continue with baseline cholestyramine and Creon regimen from my perspective. Continue tube feeds as tolerated. TIME: 33 minutes of critical care time, inclusive of procedures, was spent addressing the patient's acute hypoxemic respiratory failure secondary to COVID-19, review of all data and collaboration with the care team. Subjective Subjective The patient was seen and examined at the bedside this morning. Events from the last 24 hours have been reviewed. Today is vent day #5. The patient currently has a low-grade fever but remains otherwise hemodynamically stable. The patient was transitioned to APRV yesterday due to refractory hypoxemia. He is currently tolerating the aforementioned with a P high of 28 and FiO2 of 100%. He remains sedated on propofol and fentanyl. He is currently tolerating tube feeds. The patient is documented to be overall net +3.8 L for the hospitalization. He remains on empiric antimicrobials, Decadron and prophylactic Lovenox. He has completed his treatment course of remdesivir. This morning I was notified by respiratory therapy and nursing staff of concern for a ruptured gliding pilot instructor balloon. Therefore, the patient's old endotracheal tube was removed over a tube exchanger and a new 7.5 endotracheal tube was introduced. The patient tolerated the procedure well. Objective Data Objective Data The patient's most recent lab work, culture data and imaging studies have all been personally reviewed. Rapid coronavirus antigen testing was positive on September 09. Sputum culture is currently growing group B streptococcus. Vital Signs: Vital Signs Temp Pulse Resp BP Pulse Ox 100.5 F H 91 20 H 126/83 H 92 09/18/21 05:00 09/18/21 06:00 09/18/21 06:00 09/18/21 06:00 09/18/21 06:00 Oxygen Flow Rate (L/min) 60 Oxygen Delivery Method Bi-pap Weight: 102.2 kg Body Mass Index (BMI) 32.6 Intake & Output: Intake and Output for Last 24 Hours 09/16/21 09/17/21 09/18/21 23:59 23:59 23:59 Intake Total 4420.02 / 4712.72 4413.15 / 4432.35 351.19 / 351.19 Output Total 4950 / 4950 4025 / 4025 125 / 125 Balance -529.98 / -237.28 388.15 / 407.35 226.19 / 226.19 Medical Nutrition Assessment Dietitian: Malnutrition Criteria Met Start: 09/14/21 11:54 Freq: Status: Active Protocol: Document 09/17/21 10:13 AG (Rec: 09/17/21 10:13 [id number]) Nutrition Malnutrition Evidence of Malnutrition Exists Yes Malnutrition (severe): Acute Illness/Injury Evidenced By Suboptimal Energy Intake ( Severe),Weight Loss (Severe) Clinical Problem Acute Disease or Injury Related Malnutrition Etiology Severe protein/calorie malnutrition in the context of acute illness related to inadequate energy intake w/ increased energy needs d/t resp. failure Signs/Symptoms as evidenced by 4.2kg/4% wt loss x 1 week and ongoing poor intake meeting less than 50% estimated nutrition needs Status Active Problem Recommendation Dietitian Recommendations/Changes NPO while intubated; Vital AF 1.2 via OGT at goal rate of 70mL/hour w/ 125mL H2O flush every 4 hours to provide 2016 calories, 126 g protein, and 2112mL fluid/day. Lab / Micro Data Attestation: I reviewed the patient's lab results. Result Diagrams: 09/18/21 03:10 09/18/21 03:10 Labs: Laboratory Results - last 24 hr 09/17/21 03:20: Diff Path Review Reviewed 09/17/21 08:00: Sodium 138, Potassium 3.9, Chloride 104, Carbon Dioxide 30.0, Anion Gap 4 L, BUN 36 H, Creatinine 0.86, Estim Creat Clear Calc 87.56, Est GFR (MDRD) Af Amer 114, Est GFR (MDRD) Non-Af 94, BUN/Creatinine Ratio 41.9 H, Glucose 162 H, Calcium 8.2 L, Total Bilirubin 1.10 H, AST 39 H, ALT 44, Alkaline Phosphatase 73, Total Protein 6.3 L, Albumin 1.8 L, Globulin 4.5 H, Albumin/Globulin Ratio 0.4 L 09/17/21 17:55: POC Glucose 198 H 09/18/21 03:10: WBC 25.0 H, RBC 4.84, Hgb 14.7, Hct 43.2, MCV 89.3, MCH 30.4, MCHC 34.0, RDW Std Deviation 42.3, RDW Coeff of Zachary 13.0, Plt Count 306, MPV 9.8, Neut % (Auto) Not Reportable, Absolute Neuts (auto) 22.0 H, Absolute Lymphs (auto) 0.75 L, Total Counted 100, Neutrophils % (Manual) 78 H, Band Neutrophils % 10 H, Lymphocytes % (Manual) 3 L, Monocytes % (Manual) 4, Metamyelocytes % 3 H, Myelocytes % 2 H, Diff Path Review May foll, Platelet Estimate ADEQUATE, RBC Morphology NORM C+C 09/18/21 03:10: Sodium 135 L, Potassium 4.1, Chloride 97 L, Carbon Dioxide 30.0, Anion Gap 8, BUN 39 H, Creatinine 0.89, Estim Creat Clear Calc 84.61, Est GFR (MDRD) Af Amer 109, Est GFR (MDRD) Non-Af 90, BUN/Creatinine Ratio 43.8 H, Glucose 170 H, Calcium 8.3 L, Total Bilirubin 1.20 H, AST 37, ALT 45, Alkaline Phosphatase 81, Total Protein 7.2, Albumin 1.9 L, Globulin 5.3 H, Albumin/Globulin Ratio 0.4 L Micro: Microbiology 09/14/21 10:50 Sputum, Induced/Lukens Gram Stain - Final 09/14/21 10:50 Sputum, Induced/Lukens Respiratory Culture - Final Streptococcus agalactiae (B) 09/12/21 10:43 Sputum, Expectorated/Coughed Gram Stain - Final 09/12/21 10:43 Sputum, Expectorated/Coughed Respiratory Culture - Final 09/12/21 10:43 Urine, Random Legionella Antigen - Final 09/12/21 10:43 Urine, Random Streptococcus pneumoniae Antigen (M - Final ABG Data ABG results: ABG 09/18/21 05:47 Specimen Type ART Sample Site L Radial pH 7.46 H Bicarbonate Actual 28.4 H Total CO2 30 Base Excess 5 H O2 Saturation 91 L O2 % 100 ABG pCO2 39.8 ABG pO2 58 L Daniel Test Positive Respiration Rate 12 O2 Delivery Device Adult Vent Vent Mode BiLevel POC Pressure Suppt 5 Clinical Comments Radiography Diagnostic Testing: Radiology Impression Chest X-Ray 09/17/21 14:30 IMPRESSION: Mild residual bilateral pulmonary infiltrates although there has been a moderate degree of improvement as compared to prior study. The support tubes are in good position. Electronically Signed: Ike Metcalf MD at 14:45 EST , Service support , Physical Exam Const Constitutional Narrative: No ventilator dyssynchrony. General Appearance: intubated and patient mechanically ventilated Nutritional Appearance: obese HEENT normocephalic and head/scalp atraumatic Mouth: endotracheal tube in place and OG tube in place Eyes PERRL, EOMs intact bilaterally and conjunctivae normal Neck supple General: trachea midline Chest inspection of chest normal Resp Auscultation: diminished lung sounds; Negative for rales, rhonchi or wheezes Cardio regular rate, regular rhythm, S1 normal heart sound and S2 normal heart sound GI normal to inspection, nondistended, normoactive bowel sounds Extremity no clubbing, cyanosis or edema Skin no rashes or lesions noted Neuro Sensorium / Orientation: sedated on vent Charges/Coding Procedures Hospitalists Procedures: 25783 Critial Care 1st Hr
[2021-09-18] MEDS: Propofol 10MG/Ml 1,000 MG/100 ML Bottle 12.2 MG CONT INF (07:00)
[2021-09-18] MEDS: Albuterol 2.5 MG/3 ML VIAL.NEB. INHALATION ×3 (07:18→19:00)
--- NOTE | 2021-09-18 07:48 | RAD_ITS ---
STUDY: X-RAY CHEST REASON FOR EXAM: Male, 66 years old. Tube exchange TECHNIQUE: Single AP portable view of the chest. COMPARISON: Comparison is made with prior examination dated 09/17/2021. FINDINGS: An endotracheal tube is in situ. The tip is at 5.9 cm approximately the enrike. An oral gastric tube is seen with the tip in the body of the stomach. A right-sided PICC line catheter is in situ with the tip at the junction of the superior vena cava and right atrium. Stable bilateral pulmonary infiltrates. There is evidence of a mild pneumomediastinum. There is evidence of a subcutaneous emphysema overlying the lower right lateral chest wall and right lower cervical region.. Normal size heart. Normal mediastinum and trae. Normal visualized pulmonary arteries. Normal visualized aortic arch and descending thoracic aorta. There are diffuse degenerative changes of the visualized thoracic spine. Normal visualized ribs, clavicles, and shoulders. There is no demonstrated abnormality of the visualized soft tissue structures of the upper abdomen. RAD/CXR for Line Placement IMPRESSION: Small pneumomediastinum. Subcutaneous emphysema overlying the lower right lateral chest wall as well as in the right lower cervical region. The lungs are unchanged. Electronically Signed: Ike Metcalf MD at 8:37 EST , Service support ,
[2021-09-18] MEDS: Lansoprazole 15 MG Capsule.DR 30 MG GT (07:52)
[2021-09-18] MEDS: Enoxaparin 30 MG/0.3 ML Syringe SC ×2 (07:52→20:13)
[2021-09-18] MEDS: Senna/Docusate Sodium 1 Tablet 2 TABLET GT ×2 (07:52→20:15)
[2021-09-18] MEDS: Polyethylene Glycol 3350 17 GM PACKET GT ×2 (07:52→20:14)
[2021-09-18] MEDS: dexAMETHasone 10 MG/ML Vial 6 MG IV (07:53)
[2021-09-18] MEDS: Furosemide 40 MG/4 ML Vial IV ×2 (07:53→17:13)
[2021-09-18] MEDS: Menthol/Lanolin/Calamine/Znox 113 GM Tube 1 APPLIC TOPICAL ×2 (07:53→20:12)
[2021-09-18] MEDS: CHLORHEXIDINE GLUC 2% CLOTH 1 EACH TOWELETTE TOPICAL (07:54)
[2021-09-18] MEDS: Chlorhexidine 15 ML PO ×2 (08:05→20:13)
--- NOTE | 2021-09-18 08:58 | NURSING ---
0755 Dr Kim and RT Kendra at bedside with this RN to switch out ETT d/t concerns that cuff was blown, Dr Kim exchanged with new ETT cuff in tact tube 27 at lip CXRAY confirmed placement
--- NOTE | 2021-09-18 09:57 | PN.HOSP_ITS ---
Subjective Subjective Patient seen and examined. He remains intubated and sedated. Per discussion with his nurse, ET tube was changed this morning due to concerns about ruptured ET balloon. He is 100% FiO2 on the ventilator. WBC is up to 25 today. Objective Data Objective Data Vital Signs: Vital Signs Temp Pulse Resp BP Pulse Ox 100.5 F H 119 H 26 H 120/86 H 90 09/18/21 05:00 09/18/21 07:19 09/18/21 07:19 09/18/21 07:00 09/18/21 07:19 Oxygen Flow Rate (L/min) 60 Oxygen Delivery Method Mechanical Ventilator Weight: 225 lb 4.999 oz Body Mass Index (BMI) 32.6 Intake & Output: Intake and Output for Last 24 Hours 09/16/21 09/17/21 09/18/21 23:59 23:59 23:59 Intake Total 4420.02 / 4712.72 4413.15 / 4432.35 1722.09 / 1722.09 Output Total 4950 / 4950 4025 / 4025 125 / 125 Balance -529.98 / -237.28 388.15 / 407.35 1597.09 / 1597.09 Medical Nutrition Assessment Dietitian: Malnutrition Criteria Met Start: 09/14/21 11:54 Freq: Status: Active Protocol: Document 09/17/21 10:13 AG (Rec: 09/17/21 10:13 [id number]) Nutrition Malnutrition Evidence of Malnutrition Exists Yes Malnutrition (severe): Acute Illness/Injury Evidenced By Suboptimal Energy Intake ( Severe),Weight Loss (Severe) Clinical Problem Acute Disease or Injury Related Malnutrition Etiology Severe protein/calorie malnutrition in the context of acute illness related to inadequate energy intake w/ increased energy needs d/t resp. failure Signs/Symptoms as evidenced by 4.2kg/4% wt loss x 1 week and ongoing poor intake meeting less than 50% estimated nutrition needs Status Active Problem Recommendation Dietitian Recommendations/Changes NPO while intubated; Vital AF 1.2 via OGT at goal rate of 70mL/hour w/ 125mL H2O flush every 4 hours to provide 2016 calories, 126 g protein, and 2112mL fluid/day. Lab / Micro Data Result Diagrams: 09/18/21 03:10 09/18/21 03:10 Labs: Laboratory Results - last 24 hr 09/17/21 03:20: Diff Path Review Reviewed 09/17/21 17:55: POC Glucose 198 H 09/18/21 03:10: WBC 25.0 H, RBC 4.84, Hgb 14.7, Hct 43.2, MCV 89.3, MCH 30.4, MCHC 34.0, RDW Std Deviation 42.3, RDW Coeff of Zachary 13.0, Plt Count 306, MPV 9.8, Neut % (Auto) Not Reportable, Absolute Neuts (auto) 22.0 H, Absolute Lymphs (auto) 0.75 L, Total Counted 100, Neutrophils % (Manual) 78 H, Band Neutrophils % 10 H, Lymphocytes % (Manual) 3 L, Monocytes % (Manual) 4, Metamyelocytes % 3 H , Myelocytes % 2 H, Diff Path Review May , Platelet Estimate ADEQUATE, RBC Morphology NORM C+C 09/18/21 03:10: Sodium 135 L, Potassium 4.1, Chloride 97 L, Carbon Dioxide 30.0, Anion Gap 8, BUN 39 H, Creatinine 0.89, Estim Creat Clear Calc 84.61, Est GFR (MDRD) Af Amer 109, Est GFR (MDRD) Non-Af 90, BUN/Creatinine Ratio 43.8 H, Glucose 170 H, Calcium 8.3 L, Total Bilirubin 1.20 H, AST 37, ALT 45, Alkaline Phosphatase 81, Total Protein 7.2, Albumin 1.9 L, Globulin 5.3 H, Albumin/Globulin Ratio 0.4 L Micro: Microbiology 09/14/21 10:50 Sputum, Induced/Lukens Gram Stain - Final 09/14/21 10:50 Sputum, Induced/Lukens Respiratory Culture - Final Streptococcus agalactiae (B) 09/12/21 10:43 Sputum, Expectorated/Coughed Gram Stain - Final 09/12/21 10:43 Sputum, Expectorated/Coughed Respiratory Culture - Final 09/12/21 10:43 Urine, Random Legionella Antigen - Final 09/12/21 10:43 Urine, Random Streptococcus pneumoniae Antigen (M - Final ABG Data ABG results: ABG 09/18/21 05:47 Specimen Type ART Sample Site L Radial pH 7.46 H Bicarbonate Actual 28.4 H Total CO2 30 Base Excess 5 H O2 Saturation 91 L O2 % 100 ABG pCO2 39.8 ABG pO2 58 L Daniel Test Positive Respiration Rate 12 O2 Delivery Device Adult Vent Vent Mode BiLevel POC Pressure Suppt 5 Clinical Comments Radiography Diagnostic Testing: Radiology Impression Chest X-Ray 09/17/21 14:30 IMPRESSION: Mild residual bilateral pulmonary infiltrates although there has been a moderate degree of improvement as compared to prior study. The support tubes are in good position. Electronically Signed: Ike Metcalf MD at 14:45 EST , Service support , Chest X-Ray 09/18/21 07:48 IMPRESSION: Small pneumomediastinum. Subcutaneous emphysema overlying the lower right lateral chest wall as well as in the right lower cervical region. The lungs are unchanged. Electronically Signed: Ike Metcalf MD at 8:37 EST , Service support , Physical Exam Narrative . Const Constitutional Narrative: intubated, sedated, RASS score is -4 Exam Limitations: altered mental status Nutritional Appearance: obese HEENT head/scalp atraumatic and oropharynx normal Eyes PERRL, EOMs intact bilaterally and conjunctivae normal Neck no lymphadenopathy and no JVD Resp no retractions and no use of accessory muscles Resp Narrative: diminished breath sounds bibasally, few bilateral crackles. intubated and sedated. Auscultation: Negative for rales, rhonchi or wheezes Cardio regular rate, regular rhythm, S1 normal heart sound, S2 normal heart sound, no murmurs, no rub, no gallops, no clicks and no JVD GI normal to inspection, nondistended, normoactive bowel sounds, soft to palpation, non-tender and non-distended Extremity normal to inspection, full ROM and no clubbing, cyanosis or edema Peripheral Pulses: Yes pulses 2+ throughout Skin no rashes or lesions noted Neuro Neuro Narrative: intubated, sedated, RASS score is -4 Assessment & Plan Assessment/Plan (1) Pneumonia due to COVID-19 virus: (2) Respiratory failure with hypoxia: QUALIFIERS: Chronicity: acute on chronic Qualified Code(s): J96.21 - Acute and chronic respiratory failure with hypoxia (3) Transaminitis: PLAN: #Acute hypoxic respiratory failure due to covid 19 pneumonia * remains intubated and sedated. on 100% FiO2 on the ventilator. He was transitioned to APRV yesterday due to hypoxiemia not improving. * he had his ET tube replaced today due to concerns about a ruptured ET baloon. * on remdesivir and decadron. completed a course of remdesivir. On decadron, to complete a 10 day course. * titrate oxygen to maintain sats >90% * breathing treatment with bronchodilators. * on IV vancomycin and meropenem. * diurese as needed to maintain euvolemic status * critical care on board * sputum culture growing Grouop B strep. * * #Mild transaminitis: * resolved. #History of Crohn's disease: S/p bowel resection. On Humira which is on hold in light of acute illness #History of chronic pancreatitis: On cholestyramine and Creon #GERD: On PPI #Nutrition: tube feeding. #Severe malnutrition: * has 5-7% weight loss in less than a week and poor intake. * TO have enteral nutrition support , and tube feeding as needed. * Mechanical Research Engineer on board. * DVT prophylaxis: Lovenox CODE STATUS: * Full code. * Charges/Coding Visit Charges Inpatient E&M: 43857 [facility] Hosp L3
[2021-09-18] MEDS: Acetaminophen 650 MG/20 ML UDC GT ×2 (11:34→20:17)
[2021-09-18] MEDS: Vital AF 1.2 Cal Liquid 1,000 ML 70 ML GT (11:36)
[2021-09-18] MEDS: Propofol 10MG/Ml 1,000 MG/100 ML Bottle 18.3 MG CONT INF ×2 (12:00→14:00)
[2021-09-18 13:08] LABS: Pathologist Review Reviewed
[2021-09-18 14:34] LABS: Triglycerides 128 mg/dL
--- NOTE | 2021-09-18 15:40 | CASEMGMT ---
Social Work SW placed call to pt Jill and offered support. Jill confirms that her children are checking on her daily and coming for the weekend and that she has a religious family that is very support and meeting her needs at this time. BORIS provided emotional support and Jill updated that SW is available for support as needed. BRANDY Miller
--- NOTE | 2021-09-18 17:19 | NURSING ---
1500 placed patient on cooling blanket
[2021-09-18] MEDS: Cholestyramine/Sucrose 4 GM/PACKET GT (20:15)
[2021-09-18] MEDS: Propofol 10MG/Ml 1,000 MG/100 ML Bottle 15.3 MG CONT INF (20:16)
[2021-09-19] VITALS (28 sets, daily range): BP systolic 61–164; BP diastolic 50–100; PULSE 94–163; RESP 15–36; TEMP 37.1–40.7; O2SAT 59–94
[2021-09-19] MEDS: Propofol 10MG/Ml 1,000 MG/100 ML Bottle 15.3 MG CONT INF ×3 (02:00→11:56)
[2021-09-19 04:05] LABS: Hematocrit 47.3 % (40-54); Hemoglobin 15.7 g/dL (13.0-16.5); Mean Corp Hgb Conc 33.2 g/dL (32-36); Mean Corpuscular Hgb 30.9 pg (27.0-32.0); Mean Corpuscular Volume 93.1 fL (80-94); Mean Platelet Vol. 10.5 fl (6.2-12.0); POSITIVE COUNT YES; POSITIVE DIFFERENTIAL YES; POSITIVE MORPHOLOGY YES; Platelet Count 301 K/mm3 (150-450); RBC Distribution Width CV 13.6 % (11.6-14.6); RBC Distribution Width SD 46.4 fl (35.1-43.9); Red Blood Count 5.08 M/mm3 (4.6-6.2); White Blood Count 31.2 K/mm3 (4.4-11.0)
[2021-09-19 04:18] LABS: Differential Indicated MANUAL DIFF
[2021-09-19 04:22] LABS: ALB/GLOB Ratio 0.3 RATIO (0.9-2.4); AST(SGOT) 26 U/L (15-37); Alanine Aminotransfer ALT/SGPT 40 U/L (16-61); Albumin, Serum 1.8 g/dL (3.2-5.0); Alkaline Phosphatase 87 U/L (45-117); Anion Gap 7 (5-15); BUN 50 mg/dL (7-18); BUN/Creat Ratio 55.4 RATIO (10-20); Calcium,Total 8.8 mg/dL (8.5-10.1); Chloride 95 mmol/L (98-107); EST Glomerular Filtration Rate 89 mL/min (>60); Est Glom Filt Rate - Afr Amer 107 mL/min (>60); Estimated Creatinine Clearance 83.67 ml/min; Globulin 5.8 g/dL (2.2-4.2); Glucose 267 mg/dL (74-106); Potassium 4.4 mmol/L (3.5-5.1); Protein, Total 7.6 g/dL (6.4-8.2); Sodium Level 135 mmol/L (136-145)
[2021-09-19 04:36] LABS: Lymphocyte 2 % (19-41); Metamyelocyte 3 % (0-1); Monocyte 2 % (0-10); Myelocyte 1 % (0-0); Neutrophil-Band 3 % (0-5); Neutrophil-Segmented 89 % (47-70); Total Cells Counted 100 (MANUAL DIFF)
[2021-09-19 04:37] LABS: Absolute Neutrophil Count 29.9 X10^3/uL (2.0-7.7); Neutrophil # 29.91 X10^3/uL (2.7-7.7)
[2021-09-19 04:38] LABS: Absolute Lymphocyte Count 0.62 X10^3/uL (0.83-4.51); Lymphocyte # 0.62 X10^3/ul (0.83-4.51)
[2021-09-19 04:39] LABS: Platelet Estimate ADEQUATE (ADEQ); Red Cell Morphology NORM C+C NORMAL (NORM C&C)
[2021-09-19] MEDS: guaiFENesin 10 ML UDC (200MG/10ML) 20 ML GT ×3 (04:59→17:41)
[2021-09-19] MEDS: Acetaminophen 650 MG/20 ML UDC GT ×3 (04:59→16:13)
[2021-09-19] MEDS: Vital AF 1.2 Cal Liquid 1,000 ML 70 ML GT (05:00)
[2021-09-19 05:01] LABS: Base Excess 6 mmol/L (-2 to +2); Blood Gas Specimen Type ART; FI02 100; Mode BiLevel; O2 Delivery Device Adult Vent; PO2 59 mmHG (75-100); RR 12; SITE L Radial; SO2 88 % (95-99); Total Carbon Dioxide 34 mmol/L; pCO2 59.5 mmHg (35-45); pH 7.34 (7.35-7.45)
--- NOTE | 2021-09-19 06:03 | RAD_ITS ---
We are attempting to reach an attending provider to discuss findings. An addendum with communication details will be sent when the communication is complete. STUDY: X-RAY CHEST REASON FOR EXAM: Male, 66 years old. SOB TECHNIQUE: Single AP portable view of the chest. COMPARISON: 09/17/2021 FINDINGS: Endotracheal tube, nasogastric tube, right upper extremity PICC all of which are unchanged. No change in alveolar opacities in both lung bases consistent with bibasilar pneumonia. There is no demonstrated pleural abnormality. Normal size heart. Linear radiolucencies outlining the heart suggestive of pneumomediastinum. Similar radiolucency inferior to the right hemidiaphragm worrisome for pneumoperitoneum. Normal visualized pulmonary arteries. Normal visualized aortic arch and descending thoracic aorta. Normal visualized thoracic spine. Normal visualized ribs, clavicles, and shoulders. There is no demonstrated abnormality of the visualized soft tissue structures of the upper abdomen. RAD/Chest 1 View (Portable) IMPRESSION: Interval development of pneumomediastinum and possibly pneumoperitoneum. Correlation with CT the chest abdomen pelvis would be useful. Electronically Signed: Griffin Webb MD at 7:01 EST Tel , Service support ,
--- NOTE | 2021-09-19 06:27 | PN.CC_ITS ---
Assessment & Plan Assessment/Plan (1) Respiratory failure with hypoxia: QUALIFIERS: Chronicity: acute on chronic Qualified Code(s): J96.21 - Acute and chronic respiratory failure with hypoxia (2) Pneumonia due to COVID-19 virus: (3) COPD exacerbation: (4) Asthma: PLAN: RECOMMENDATIONS: 1. Obtain stat CT chest/abdomen/pelvis. 2. Send blood and urine cultures. 3. Add Flagyl and fluconazole, per surgery recommendations. Continue cefepime as ordered. 4. Transition patient from APRV to assist control mode of mechanical ventilation. 5. Hold tube feeds. Place OG tube to wall suction. 6. Continue Decadron as ordered. 7. Hold Lovenox. 8. Continue bronchodilator therapy. 9. Continue appropriate GI prophylaxis. IMPRESSIONS: 1. Acute hypoxic respiratory failure secondary to COVID-19 in setting of asthma The patient was initially admitted to the hospital in September 11 with worsening respiratory failure. The patient's oxygenation status has continued to worsen over the course of his hospitalization. The patient was ultimately transferred to the ICU and intubated on September 14. Plan to continue current supportive measures. The patient is no longer tolerating APRV and will therefore be transitioned to assist control mode of mechanical ventilation. The patient has completed a treatment course of remdesivir and will remain on Decadron to complete 10 days of therapy. Plan to continue empiric antimicrobials as well. Repeat chest imaging from this morning revealed evidence of pneumomediastinum. 2. Pneumomediastinum/concern for intra-abdominal free air Chest x-ray from this morning revealed evidence of pneumomediastinum and concern for free air under the right hemidiaphragm. Patient does have a history of Crohn's with multiple abdominal surgeries and was immunosuppressed on Humira up until his hospitalization. After discussing the patient's tenuous clinical state with his family, plan to proceed with CT chest/abdomen/pelvis. General surgery has been consulted as well. Tube feeds have been placed on hold. 3. Obesity/advanced age/Crohn's disease/chronic pancreatitis/obesity/GERD Complicates care, management, recovery and prognosis. Okay to continue with ba seline cholestyramine and Creon regimen from my perspective. TIME: 42 minutes of critical care time, inclusive of procedures, was spent addressing the patient's acute hypoxemic respiratory failure secondary to COVID-19, pneumomediastinum, concern for intra-abdominal free air, review of all data and collaboration with the care team. Subjective Subjective The patient was seen and examined at the bedside this morning. Events from the last 24 hours have been reviewed. Today is day #6. The patient is currently febrile with a temperature of 101.5 ?F. He remains otherwise hemodynamically stable. The patient remains on APRV with a P high of 28 and FiO2 of 95%. He is sedated on propofol and fentanyl. He is currently tolerating tube feeds. The patient is documented to be overall net +5.4 L for the hospitalization. He remains on empiric antimicrobials, Decadron and prophylactic Lovenox. He has completed his treatment course of remdesivir. White count is elevated this morning at 31,000. Renal function is stable. Repeat chest x-ray obtained this morning demonstrated evidence of pneu momediastinum and what appears to be free air under the right hemidiaphragm. General surgery was subsequently consulted. Given the patient's tenuous clinical status I asked that the patient's family present to the bedside for discussion. I met with the patient's family and explained the events of the last 12 hours. I also explained to them that the patient would be high risk to be taken down for CT scan but that this would be required for further clinical decision making. They are aware of the risks and would like to remain aggressive with his care. Accordingly, CT chest/abdomen and pelvis has been ordered. Objective Data Objective Data The patient's most recent lab work, culture data and imaging studies have all been personally reviewed. Rapid coronavirus antigen testing was positive on September 09. Sputum culture is currently growing group B streptococcus. Vital Signs: Vital Signs Temp Pulse Resp BP Pulse Ox 101.5 F H 135 H 23 H 158/95 H 92 09/19/21 05:00 09/19/21 05:00 09/19/21 05:00 09/19/21 05:00 09/19/21 05:00 Oxygen Flow Rate (L/min) 60 Oxygen Delivery Method Mechanical Ventilator Weight: 103.5 kg Body Mass Index (BMI) 32.6 Intake & Output: Intake and Output for Last 24 Hours 09/17/21 09/18/21 09/19/21 23:59 23:59 23:59 Intake Total 4413.15 / 4432.35 3483.33 / 3508.63 1200.74 / 1200.74 Output Total 4025 / 4025 2350 / 2350 425 / 425 Balance 388.15 / 407.35 1133.33 / 1158.63 775.74 / 775.74 Medical Nutrition Assessment Dietitian: Malnutrition Criteria Met Start: 09/14/21 11:54 Freq: Status: Active Protocol: Document 09/18/21 10:02 (Rec: 09/18/21 10:02 [id number]) Nutrition Malnutrition Evidence of Malnutrition Exists Yes Malnutrition (severe): Acute Illness/Injury Evidenced By Suboptimal Energy Intake ( Severe),Weight Loss (Severe) Clinical Problem Acute Disease or Injury Related Malnutrition Etiology Severe protein/calorie malnutrition in the context of acute illness related to inadequate energy intake w/ increased energy needs d/t resp. failure Signs/Symptoms as evidenced by 3.9kg/3.7% wt loss x 1 week and ongoing poor intake meeting less than 50% estimated nutrition needs Status Active Problem Recommendation Dietitian Recommendations/Changes NPO while intubated; Vital AF 1.2 via OGT at goal rate of 70mL/hour w/ 125mL H2O flush every 4 hours to provide 2016 calories, 126 g protein, and 2112mL fluid/day. Lab / Micro Data Attestation: I reviewed the patient's lab results. Result Diagrams: 09/19/21 03:50 09/19/21 03:50 Labs: Laboratory Results - last 24 hr 09/18/21 03:10: Diff Path Review Reviewed 09/18/21 03:10: Triglycerides 128 09/19/21 03:50: WBC 31.2 H*, RBC 5.08, Hgb 15.7, Hct 47.3, MCV 93.1, MCH 30.9, MCHC 33.2, RDW Std Deviation 46.4 H, RDW Coeff of Zachary 13.6, Plt Count 301, MPV 10.5, Neut % (Auto) Not Reportable, Absolute Neuts (auto) 29.9 H, Absolute Lymphs (auto) 0.62 L, Total Counted 100, Neutrophils % (Manual) 89 H, Band Neutrophils % 3, Lymphocytes % (Manual) 2 L, Monocytes % (Manual) 2, Metamyelocytes % 3 H, Myelocytes % 1 H, Diff Path Review May foll, Platelet Debby mate ADEQUATE, RBC Morphology NORM C+C 09/19/21 03:50: Sodium 135 L, Potassium 4.4, Chloride 95 L, Carbon Dioxide 33.0 H, Anion Gap 7, BUN 50 H, Creatinine 0.90, Estim Creat Clear Calc 83.67, Est GFR (MDRD) Af Amer 107, Est GFR (MDRD) Non-Af 89, BUN/Creatinine Ratio 55.4 H, Glucose 267 H, Calcium 8.8, Total Bilirubin 1.00, AST 26, ALT 40, Alkaline Phosphatase 87, Total Protein 7.6, Albumin 1.8 L, Globulin 5.8 H, Albumin/Globulin Ratio 0.3 L Micro: Microbiology 09/14/21 10:50 Sputum, Induced/Lukens Gram Stain - Final 09/14/21 10:50 Sputum, Induced/Lukens Respiratory Culture - Final Streptococcus agalactiae (B) 09/12/21 10:43 Sputum, Expectorated/Coughed Gram Stain - Final 09/12/21 10:43 Sputum, Expectorated/Coughed Respiratory Culture - Final 09/12/21 10:43 Urine, Random Legionella Antigen - Final 09/12/21 10:43 Urine, Random Streptococcus pneumoniae Antigen (M - Final ABG Data ABG results: ABG 09/19/21 04:53 Specimen Type ART Sample Site L Radial pH 7.34 L Bicarbonate Actual 32.0 H Total CO2 34 Base Excess 6 H O2 Saturation 88 L O2 % 100 ABG pCO2 59.5 H ABG pO2 59 L Daniel Test N/A Respiration Rate 12 O2 Delivery Device Adult Vent Vent Mode BiLevel Radiography Diagnostic Testing: Radiology Impression Chest X-Ray 09/18/21 07:48 IMPRESSION: Small pneumomediastinum. Subcutaneous emphysema overlying the lower right lateral chest wall as well as in the right lower cervical region. The lungs are unchanged. Electronically Signed: Ike Metcalf MD at 8:37 EST , Service support , Physical Exam Const General Appearance: ill appearing, intubated and patient mechanically ventilated Nutritional Appearance: obese HEENT normocephalic and head/scalp atraumatic Mouth: endotracheal tube in place and OG tube in place Eyes PERRL, EOMs intact bilaterally and conjunctivae normal Neck supple General: trachea midline Chest Chest Narrative: +crepitus Resp Effort and Inspection: tachypneic Auscultation: diminished lung sounds; Negative for rales, rhonchi or wheezes Cardio S1 normal heart sound and S2 normal heart sound Rate: tachycardic GI normal to inspection, nondistended, normoactive bowel sounds Extremity General Extremity: edema Skin no rashes or lesions noted Neuro Sensorium / Orientation: sedated on vent Charges/Coding Procedures Hospitalists Procedures: 26381 Critial Care 1st Hr
--- NOTE | 2021-09-19 08:21 | CON.PCM.SX_ITS ---
Assessment & Plan Assessment/Plan (1) Pneumoperitoneum of unknown etiology: PLAN: 66 yo M w COVID PNA currently vented w PMH of small bowel Crohns on Humira now has evidence of pneumoperitoneum. NSQIP surgical risk calculator estimates a perioperative mortality rate of 44% based on patient's metrics. CT of the chest abdomen pelvis shows possible progression of the patient's pneumomediastinum into the peritoneal cavity causing pneumoperitoneum as well. I approached the family stating that this was not a scenario I have seen nor have the international trade analyst, but radiology stated they have seen several cases related to the increased vent settings associated with treatment of COVID-pneumonia. We held a lengthy discussion regarding the inability to definitively conclude that the pneumoperitoneum was not contributed by a perforation of the patient's bowel short of performing an exploratory surgery. We discussed patient's exceptionally high perioperative risk and that he would not likely be a candidate for diagnostic laparoscopy and we would commit him to exploratory laparotomy given his tenuous hemodynamic status if we proceeded to the OR. Short of taking this step, I have offered we could administer the patient a contrast load and perform a series of KUB x-rays to assess for any signs of extravasation that may confirm a bowel perforation. They seem to understand the patient's surgical risk, and wished to proceed with this recommendation as described. I have been careful to reiterate to them that this does not exclude the possibility of an emergent operation and we will plan to remain in close communication with him on the results of this imaging study. For the interim, I have requested the ICU to continue to hold the patient's tube feeding and place his orogastric tube to suction until the small bowel series is begun. Patient has also been broadened out to include anaerobic and fungal coverage for empiric treatment of possible bowel perforation. HPI Consult Data Date of Consult: 09/19/21 HPI Narrative HPI Narrative: LIZZIE FIORE, is a 66 M who presented to the hospital with progressive dyspnea related to a diagnosis of COVID-pneumonia 09/11/2021. He ultimately required intensive care resources and was intubated 09/14/2021. The last 24 hours patient has follow-up to a tachyarrhythmia, progressive leukocytosis, and escalating fevers. Chest x-ray today showed suggestion of air under the right hemidiaphragm but this was not completely conclusive given the patient's bibasilar, parenchymal infiltrates. CT of the chest and abdomen ther efore recommended. On this basis, surgery was asked to evaluate patient. On evaluation patient is intubated and sedated and unable to respond to questioning. Laboratories are reviewed and patient has evidence of a respiratory acidosis. Given the equivocal plain film imaging and inability to elicit a history or exam from the patient, a stat CT was obtained. This showed air under the diaphragm but also the a progression of the patient's known pneumomediastinum. Radiology ultimately read the imaging is likely consistent with spread of the pneumomediastinum into the peritoneal cavity because there was no other evidence of perforated viscus. [facility] Medical History (Updated 09/19/21 @ 09:[address] Kike Zamudio MD) Acute bronchitis Chronic pancreatitis Crohn's disease of small intestine Dyslipidemia Gynecomazia Home Medications omeprazole 40 mg PO DAILY 01/10/14 [History Last Taken 09/11/21] cholestyramine (with sugar) 1 dose PO DAILY@1300 12/16/17 [History Last Taken 09/10/21] qdoidb-puvdhkke-bgkjuyz 3 cap PO TIDCM 06/21/18 [History Last Taken 09/10/21] ondansetron 4 mg PO Q12H PRN PRN 09/06/19 [History Last Taken Unknown] albuterol sulfate 90 mcg/actuation aerosol inhaler 2 puff INHALATION Q6H PRN #1 device 12/31/20 [Rx Last Taken 09/11/21] acetaminophen 1,000 mg PO Q6H PRN 09/11/21 [History Last Taken Unknown] adalimumab [Humira Pen] 40 mg SUBCUT .Q14DAY 09/11/21 [History Last Taken 09/08/21] azelastine 1 spray INTRANASAL Q12H 09/11/21 [History Last Taken 09/11/21] fluticasone propion-salmeterol [Advair Diskus] 1 inh INHALATION BID 09/11/21 [History Last Taken 09/11/21] prednisone 10 mg PO UD 09/11/21 [History Last Taken 09/11/21] Allergy/AdvReac Type Severity Reaction Status Date / Time budesonide Allergy Swelling Verified 09/09/21 16:14 Family History Mother Heart disease Father Cancer Hx lung cancer, concurrent tobacco use history. Surgical History Abdominal hernia History of appendectomy History of bowel resection History of cholecystectomy History of ERCP Social History household members: spouse Smoking Status: Former smoker Tobacco: How many years used: 2 how long ago did patient quit smoking: Quit 1974, prior smoked 1ppd since teen. second hand exposure: Yes alcohol intake: never substance use type: does not use Physical Exam Const Constitutional Narrative: sedated General Appearance: intubated and patient mechanically ventilated Cardio Rate: tachycardic GI GI Narrative: Distended, soft, patient exhibits no signs of wincing/grimacing to suggest tenderness. Medical Records Data Medical Nutrition Assessment Dietitian: Malnutrition Criteria Met Start: 09/14/21 11:54 Freq: Status: Active Protocol: Document 09/18/21 10:02 (Rec: 09/18/21 10:02 [id number]) Nutrition Malnutrition Evidence of Malnutrition Exists Yes Malnutrition (severe): Acute Illness/Injury Evidenced By Suboptimal Energy Intake ( Severe),Weight Loss (Severe) Clinical Problem Acute Disease or Injury Related Malnutrition Etiology Severe protein/calorie malnutrition in the context of acute illness related to inadequate energy intake w/ increased energy needs d/t resp. failure Signs/Symptoms as evidenced by 3.9kg/3.7% wt loss x 1 week and ongoing poor intake meeting less than 50% estimated nutrition needs Status Active Problem Recommendation Dietitian Recommendations/Changes NPO while intubated; Vital AF 1.2 via OGT at goal rate of 70mL/hour w/ 125mL H2O flush every 4 hours to provide 2016 calories, 126 g protein, and 2112mL fluid/day. Lab / Micro Data Result Diagrams: 09/19/21 03:50 09/19/21 03:50 Labs: Laboratory Results - last 24 hr 09/18/21 03:10: Diff Path Review Reviewed 09/18/21 03:10: Triglycerides 128 09/19/21 03:50: WBC 31.2 H*, RBC 5.08, Hgb 15.7, Hct 47.3, MCV 93.1, MCH 30.9, MCHC 33.2, RDW Std Deviation 46.4 H, RDW Coeff of Zachary 13.6, Plt Count 301, MPV 10.5, Neut % (Auto) Not Reportable, Absolute Neuts (auto) 29.9 H, Absolute Lymphs (auto) 0.62 L, Total Counted 100, Neutrophils % (Manual) 89 H, Band Neutrophils % 3, Lymphocytes % (Manual) 2 L, Monocytes % (Manual) 2, Metamyelocytes % 3 H, Myelocytes % 1 H, Diff Path Review January, Platelet Estimate ADEQUATE, RBC Morphology NORM C+C 09/19/21 03:50: Sodium 135 L, Potassium 4.4, Chloride 95 L, Carbon Dioxide 33.0 H, Anion Gap 7, BUN 50 H, Creatinine 0.90, Estim Creat Clear Calc 83.67, Est GFR (MDRD) Af Amer 107, Est GFR (MDRD) Non-Af 89, BUN/Creatinine Ratio 55.4 H, Glucose 267 H, Calcium 8.8, Total Bilirubin 1.00, AST 26, ALT 40, Alkaline Phosphatase 87, Total Protein 7.6, Albumin 1.8 L, Globulin 5.8 H, Albumin/Globulin Ratio 0.3 L ABG Data ABG results: ABG 09/19/21 04:53 Specimen Type ART Sample Site L Radial pH 7.34 L Bicarbonate Actual 32.0 H Total CO2 34 Base Excess 6 H O2 Saturation 88 L O2 % 100 ABG pCO2 59.5 H ABG pO2 59 L Daniel Test N/A Respiration Rate 12 O2 Delivery Device Adult Vent Vent Mode BiLevel Radiology Impression Chest X-Ray 09/18/21 07:48 IMPRESSION: Small pneumomediastinum. Subcutaneous emphysema overlying the lower right lateral chest wall as well as in the right lower cervical region. The lungs are unchanged. Electronically Signed: Ike Metcalf MD at 8:37 EST , Service support , Chest X-Ray 09/19/21 06:03 IMPRESSION: Interval development of pneumomediastinum and possibly pneumoperitoneum. Correlation with CT the chest abdomen pelvis would be useful. Electronically Signed: Griffin Webb MD at 7:01 EST Tel , Service support , ADDENDUM: 09/19/21 0719 IMPRESSION: Interval development of pneumomediastinum and possibly pneumoperitoneum. Correlation with CT the chest abdomen pelvis would be useful. N.B. : The above Results were Read Back by Griffin Webb MD to Walter Kim MD, and understanding confirmed on 09/19/2021 07:12:47 (ET). Electronically Signed: Griffin Webb MD at 7:01 EST Tel , Service support ,
--- NOTE | 2021-09-19 08:37 | CT_ITS ---
We are attempting to reach an attending provider to discuss findings. An addendum with communication details will be sent when the communication is complete. STUDY: CT CHEST, ABDOMEN T PELVIS WITH CONTRAST REASON FOR EXAM: Male, 66 years old. Concern for intra-abdominal free air RADIATION DOSAGE (If Supplied By Facility): CTDIvol = ( 22.19 ) mGy, DLP = ( 2238.62 ) mGycm TECHNIQUE: Transaxial imaging was performed following intravenous administration of IV 100mL Isovue-370. Individualized dose optimization techniques were used for this CT. COMPARISON: Chest x-ray earlier today, CT 07/13/2020 and 07/19/2018 FINDINGS: CHEST Endotracheal tube with the tip above the enrike. Feeding tube with the tip the ligament of Treitz.. Right upper extremity PICC with the tip in the superior vena cava. Subcutaneous emphysema of the anterior chest wall. Large amount of pneumomediastinum. Alveolar density in both lung bases consistent with bibasilar atelectasis or pneumonia. There is no demonstrated pleural abnormality. Normal heart and pericardium. Normal mediastinum. Normal hilar regions. Normal unenhanced pulmonary arteries. Normal aorta arch and descending thoracic aorta. Normal osseous structures. There is no demonstrated abnormality of the visualized upper abdomen. ABDOMEN Moderate amount of pneumoperitoneum in the upper abdomen may be related to pneumomediastinum the bowel perforation cannot be excluded. Alveolar density in both lung bases consistent with bibasilar atelectasis or pneumonia. The visualized portions of the heart are within normal limits. Normal liver. There is non-visualization of the gallbladder, which may be secondary to either contraction or a prior cholecystectomy. Normal spleen. Normal pancreas. Normal bilateral adrenal glands. Normal right kidney. Normal left kidney. Normal visualized stomach. Normal small intestine. There are multiple colonic diverticula consistent with diverticulosis. There is non-visualization of the appendix. Normal abdominal aorta. Normal inferior vena cava. Normal retroperitoneum. Normal abdominal wall. Normal osseous structures. PELVIS Tavarez catheter within the collapsed bladder. Normal visualized small intestine. Normal visualized colon. There is no pelvic fluid. There is no pelvic lymphadenopathy or mass lesion. Normal visualized pelvic arteries. Normal abdominal wall. Normal osseous structures. CT/CT Chest, Abd, Pel w/Contrast IMPRESSION: 1. Subcutaneous emphysema in the anterior chest wall. 2. Large amount of pneumomediastinum. 3. Moderate amount of pneumoperitoneum in the upper abdomen likely from extension of pneumomediastinum. No other CT evidence of perforated bowel. 4. Bibasilar atelectasis or pneumonia. Electronically Signed: Griffin Webb MD at 10:34 EST Tel , Service support ,
[2021-09-19 09:26] LABS: D-Dimer Quantitative (DVT/PE) 2.13 FEU/ug/m (0.27-0.49)
[2021-09-19 09:31] LABS: Lactic Acid 3.7 mmol/L (0.4-1.9)
[2021-09-19] MEDS: dexAMETHasone 10 MG/ML Vial 6 MG IV (09:56)
[2021-09-19] MEDS: Enoxaparin 30 MG/0.3 ML Syringe SC (09:56)
[2021-09-19] MEDS: Polyethylene Glycol 3350 17 GM PACKET GT (09:56)
[2021-09-19] MEDS: Senna/Docusate Sodium 1 Tablet 2 TABLET GT (09:56)
[2021-09-19] MEDS: Chlorhexidine 15 ML PO (09:57)
[2021-09-19] MEDS: Menthol/Lanolin/Calamine/Znox 113 GM Tube 1 APPLIC TOPICAL (09:57)
[2021-09-19] MEDS: CHLORHEXIDINE GLUC 2% CLOTH 1 EACH TOWELETTE TOPICAL (09:58)
[2021-09-19] MEDS: Lansoprazole 15 MG Capsule.DR 30 MG GT (09:58)
--- NOTE | 2021-09-19 12:00 | RAD_ITS ---
Small bowel series Indication: Pneumoperitoneum 4 bottles of GASTROGRAFIN injected through the enteric tube, according to technologist''s documentation. The catheter is seen terminating in the distal duodenum. Normal opacification of small bowel without extraluminal contrast identified. Pneumomediastinum noted, better seen on CT from earlier today. There also appears to be pneumoperitoneum along the right upper abdomen, also better seen on recent CT. There is early contrast filling of colon on 1 hour 45 minute image. RAD/Small Bowel Series Only IMPRESSION: 1. No extraluminal contrast identified. 2. Pneumomediastinum and pneumoperitoneum better seen on CT from earlier today. Electronically Signed: Jairo Ambriz MD ([place]) at 15:47 EST , Service support ,
[2021-09-19] MEDS: TITRATION PARAMETER CHANGE 1 EACH IV (12:45)
[2021-09-19 12:52] LABS: Reflex Lactate? Y
--- NOTE | 2021-09-19 13:43 | PN.HOSP_ITS ---
Subjective Subjective Patient seen and examined. Patient is tachypneic and tachycardic and has also had a fever. He was noted to have free air in the peritoneum and also has pneumomediastinum likely due to barotrauma. His respiratory status has continued to worsen. WBC is up to 31. Lactic acid is up to 3.7. Objective Data Objective Data Vital Signs: Vital Signs Temp Pulse Resp BP Pulse Ox 102.9 F H 132 H 23 H 116/88 H 83 09/19/21 12:00 09/19/21 12:00 09/19/21 12:00 09/19/21 12:00 09/19/21 12:00 Oxygen Flow Rate (L/min) 60 Oxygen Delivery Method Mechanical Ventilator Weight: 228 lb 2.855 oz Body Mass Index (BMI) 32.6 Intake & Output: Intake and Output for Last 24 Hours 09/17/21 09/18/21 09/19/21 23:59 23:59 23:59 Intake Total 4413.15 / 4432.35 3483.33 / 3508.63 2104.65 / 2104.65 Output Total 4025 / 4025 2350 / 2350 825 / 825 Balance 388.15 / 407.35 1133.33 / 1158.63 1279.65 / 1279.65 Medical Nutrition Assessment Dietitian: Malnutrition Criteria Met Start: 09/14/21 11:54 Freq: Status: Active Protocol: Document 09/19/21 10:02 RMA (Rec: 09/19/21 10:02 RMA [id number]) Nutrition Malnutrition Evidence of Malnutrition Exists Yes Malnutrition (severe): Acute Illness/Injury Evidenced By Suboptimal Energy Intake ( Severe),Weight Loss (Severe) Clinical Problem Acute Disease or Injury Related Malnutrition Etiology Severe protein/calorie malnutrition in the context of acute illness related to inadequate energy intake w/ increased energy needs d/t resp. failure Signs/Symptoms as evidenced by 3.9kg/3.7% wt loss x 1 week and ongoing poor intake meeting less than 50% estimated nutrition needs Status Active Problem Recommendation Dietitian Recommendations/Changes NPO while intubated; Continue enteral nutrition support with TF of Vital AF 1.2 via OGT at goal rate of 70mL/hour w/ 125mL H2O flush every 4 hours to provide 2016 calories, 126 g protein, and 2112mL fluid/ day. Lab / Micro Data Result Diagrams: 09/19/21 03:50 09/19/21 03:50 Labs: Laboratory Results - last 24 hr 09/18/21 03:10: Triglycerides 128 09/19/21 03:50: WBC 31.2 H*, RBC 5.08, Hgb 15.7, Hct 47.3, MCV 93.1, MCH 30.9, MCHC 33.2, RDW Std Deviation 46.4 H, RDW Coeff of Zachary 13.6, Plt Count 301, MPV 10.5, Neut % (Auto) Not Reportable, Absolute Neuts (auto) 29.9 H, Absolute Lymphs (auto) 0.62 L, Total Counted 100, Neutrophils % (Manual) 89 H, Band Neutrophils % 3, Lymphocytes % (Manual) 2 L, Monocytes % (Manual) 2, Metamyelocytes % 3 H, Myelocytes % 1 H, Diff Path Review January, Platelet Estimate ADEQUATE, RBC Morphology NORM C+C 09/19/21 03:50: Sodium 135 L, Potassium 4.4, Chloride 95 L, Carbon Dioxide 33.0 H, Anion Gap 7, BUN 50 H, Creatinine 0.90, Estim Creat Clear Calc 83.67, Est GFR (MDRD) Af Amer 107, Est GFR (MDRD) Non-Af 89, BUN/Creatinine Ratio 55.4 H, Glucose 267 H, Calcium 8.8, Total Bilirubin 1.00, AST 26, ALT 40, Alkaline Phosphatase 87, Total Protein 7.6, Albumin 1.8 L, Globulin 5.8 H, Albumin/Globulin Ratio 0.3 L 09/19/21 07:50: D-Dimer Quant (PE/DVT) 2.13 H* 09/19/21 08:40: Lactic Acid 3.7 H* Micro: Microbiology 09/14/21 10:50 Sputum, Induced/Lukens Gram Stain - Final 09/14/21 10:50 Sputum, Induced/Lukens Respiratory Culture - Final Streptococcus agalactiae (B) 09/12/21 10:43 Sputum, Expectorated/Coughed Gram Stain - Final 09/12/21 10:43 Sputum, Expectorated/Coughed Respiratory Culture - Final 09/12/21 10:43 Urine, Random Legionella Antigen - Final 09/12/21 10:43 Urine, Random Streptococcus pneumoniae Antigen (M - Final ABG Data ABG results: ABG 09/19/21 04:53 Specimen Type ART Sample Site L Radial pH 7.34 L Bicarbonate Actual 32.0 H Total CO2 34 Base Excess 6 H O2 Saturation 88 L O2 % 100 ABG pCO2 59.5 H ABG pO2 59 L Daniel Test N/A Respiration Rate 12 O2 Delivery Device Adult Vent Vent Mode BiLevel Radiography Diagnostic Testing: Radiology Impression Chest X-Ray 09/19/21 06:03 IMPRESSION: Interval development of pneumomediastinum and possibly pneumoperitoneum. Correlation with CT the chest abdomen pelvis would be useful. Electronically Signed: Griffin Webb MD at 7:01 EST Tel , Service support , ADDENDUM: 09/19/21 0719 IMPRESSION: Interval development of pneumomediastinum and possibly pneumoperitoneum. Correlation with CT the chest abdomen pelvis would be useful. N.B. : The above Results were Read Back by Griffin Webb MD to Walter Kim MD, and understanding confirmed on 09/19/2021 07:12:47 (ET). Electronically Signed: Griffin Webb MD at 7:01 EST Tel , Service support , Chest/Abdomen/Pelvis CT 09/19/21 08:37 IMPRESSION: 1. Subcutaneous emphysema in the anterior chest wall. 2. Large amount of pneumomediastinum. 3. Moderate amount of pneumoperitoneum in the upper abdomen likely from extension of pneumomediastinum. No other CT evidence of perforated bowel. 4. Bibasilar atelectasis or pneumonia. Electronically Signed: Griffin Webb MD at 10:34 EST Tel , Service support , ADDENDUM: 09/19/21 1051 IMPRESSION: 1. Subcutaneous emphysema in the anterior chest wall. 2. Large amount of pneumomediastinum. 3. Moderate amount of pneumoperitoneum in the upper abdomen likely from extension of pneumomediastinum. No other CT evidence of perforated bowel. 4. Bibasilar atelectasis or pneumonia. N.B. : The above Results were Read Back by Griffin Webb MD to AMANDA Miller, and understanding confirmed on 09/19/2021 10:44:16 (ET). Electronically Signed: Griffin Webb MD at 10:34 EST Tel , Service support , Physical Exam Narrative . Const Constitutional Narrative: intubated, sedated, RASS score is -4 Exam Limitations: altered mental status Nutritional Appearance: obese HEENT head/scalp atraumatic and oropharynx normal Head and Scalp: normocephalic Eyes PERRL, EOMs intact bilaterally and conjunctivae normal Neck no lymphadenopathy and no JVD Resp no retractions and no use of accessory muscles Resp Narrative: diminished breath sounds bibasally, few bilateral crackles. intubated and sedated. has sc crepitations, tachypneic Auscultation: Negative for rales, rhonchi or wheezes Cardio regular rhythm, S1 normal heart sound, S2 normal heart sound, no murmurs, no rub, no gallops, no clicks and no JVD Cardio Narrative: tachycardic GI normal to inspection, nondistended, normoactive bowel sounds, soft to palpation, non-tender and non-distended Extremity normal to inspection, full ROM and no clubbing, cyanosis or edema Peripheral Pulses: Yes pulses 2+ throughout Skin no rashes or lesions noted Neuro Neuro Narrative: intubated, sedated, RASS score is -4 Psych affect normal Assessment & Plan Assessment/Plan (1) Pneumonia due to COVID-19 virus: (2) Respiratory failure with hypoxia: QUALIFIERS: Chronicity: acute on chronic Qualified Code(s): J96.21 - Acute and chronic respiratory failure with hypoxia (3) Transaminitis: PLAN: #Acute hypoxic respiratory failure due to covid 19 pneumonia * remains intubated and sedated. on 100% FiO2 on the ventilator. remains very tachypneic, and is on 100% FiO2 * completed a course of remdesivir. On decadron, to complete a 10 day course. * titrate oxygen to maintain sats >90% * CXR tday showed interval development of pneumomediastinum and possibly pneumoperitoneum * breathing treatment with bronchodilators. * on IV vancomycin and meropenem. * diurese as needed to maintain euvolemic status * critical care on board * sputum culture growing Group B strep. * Fluconazole added on IV as well as IV metronidazole * #Pneumomdiastinum and possible pneumoperitoneum * general surgery consulted. * CT abdomen showed findings concerning for pneumoperitoneum * Per general surgery, to have a series of KUB x-rays to assess for extravasation that may confirm a bowel perforation. This has been discussed with patient's family. #Mild transaminitis: * resolved. #History of Crohn's disease: S/p bowel resection. On Humira which is on hold in light of acute illness #History of chronic pancreatitis: On cholestyramine and Creon #GERD: On PPI #Nutrition: tube feeding. Tube feeding on hold as he is having a series of KUBs. #Severe malnutrition: * has 5-7% weight loss in less than a week and poor intake. * TO have enteral nutrition support , and tube feeding as needed. * [employer] on board. * DVT prophylaxis: Lovenox CODE STATUS: * Full code. Family into assess patient today and will decide about CODE STATUS * PRognosis is poor. Charges/Coding Visit Charges Inpatient E&M: 04597 Subs Hosp L3
[2021-09-19] MEDS: metroNIDAZOLE 500 MG/100 ML BAG 100 MG IV ×2 (13:48→17:41)
[2021-09-19 14:39] LABS: Lactic Acid 3.9 mmol/L (0.4-1.9)
--- NOTE | 2021-09-19 15:15 | NURSING ---
Updated the and family that the patient's pulse ox continues to drop despite ventilator settings. Sedation is completely off the patient is only responding to pain with no purposeful movements. Discussed code status with family. They decided to change his code status to DNR-CCA with intubation. Dr. Zamudio present and discussed the results of the abdominal series with the family. He then called Dr. Kim to update him. This nurse spoke to Dr Kim and informed him of the patient's current pulse ox of 69% and the family wishes to change his code status to DNRCCA with intubation.
--- NOTE | 2021-09-19 15:39 | NURSING ---
Spoke to the patient's family. The stated that they are going home and to call her when the patient passes. stated she understands the patient will more than likely not make it through the night. She stated please don't let him suffer or be in pain. Discussed terminally weaning the patient. She stated I want his body to shut down on it's own.
--- NOTE | 2021-09-19 21:05 | NURSING ---
Pt without vital signs, family at bedside. Jill updated over phone by son. packet complete, awaiting call back from [place] home with instructions for body.
--- NOTE | 2021-09-19 21:40 | PCM.HOSP.N ---
Hospitalist Note Patient passed. Was DNR-CCA with intubation. Date of 09/19/21 and time of 21:05.
--- NOTE | 2021-09-20 07:24 | EXP.PCM_ITS ---
Preliminary Cause of Preliminary Cause of Preliminary Cause of : acute on chronici hypoxic respiratory failure due to covid 19 pneumonia Date of Admission: 09/11/21 Principle Diagnosis Problem List: Active and Suspected Problems (Updated 09/19/21 @ 09:[address] Kike Zamudio MD) Pneumoperitoneum of unknown etiology (Acute) Transaminitis (Acute) Pneumonia due to COVID-19 virus (Acute) Respiratory failure with hypoxia (Acute) Asthma (Acute) COPD exacerbation (Acute) Hospital Course Patient was a 66-year-old male with an extensive past medical history as outlined who was admitted through the ED on 09/11/2021 with a complaint of progressively worsening fever, chills, frontal headaches and sore throat with decreased sense of taste and smell as well as body aches and nausea. He had been seen in the ED with the same symptoms on 09/09/2021 and was started on prednisone at that time. He received monoclonal antibody infusion on 09/10/2020. Patient had had 2 doses of the Pfizer vaccine but no booster. Patient had gradually deteriorated at home with his saturation being 68% also at home on his 3 L of oxygen. Patient was requiring up to 7 L of oxygen in the ED. He gradually worsened and so was transitioned to BiPAP. Chest x-ray showed progressive bilateral pulmonary infiltrates consistent with COVID. He was s tarted on Decadron and admitted to be managed for acute on chronic hypoxic respiratory failure due to COVID-19 pneumonia. Patient's hospital course was complicated by worsening respiratory status with associated tachypnea and tachycardia. He was maxed out on BiPAP but still not doing well so he was transferred to the ICU where he was emergently intubated. Hospital course in the ICU was complicated by pneumoperitoneum and pneumomediastinum which was thought to be due to barotrauma. Patient's condition kept worsening and family came to see patient and change CODE STATUS to DNR CCA. Patient at 2104 on 09/19/2021. Cause of is acute on chronic hypoxic respiratory failure due to COVID-19 pneumonia. Visit Charges Inpatient E&M: [id number] [facility]
[2021-09-21 14:08] LABS: Pathologist Review Reviewed
== END 2021-09-19 21:05 | DRG 207 ==
LOC: ED 13:38 → PCU 13:53 → ICU 09-14 11:17
PROVIDERS: Internal Medicine; Internal Medicine Critical Care Medicine; Admitting Provider Family Medicine; Emergency Provider Emergency Medicine; PCP Internal Medicine; Visit Provider Student in an Organized Health Care Education/Training Program
DX: U07.1 COVID-19 (principal); A41.89 Other specified sepsis; J12.82 Pneumonia due to coronavirus disease 2019; J96.21 Acute and chronic respiratory failure with hypoxia; E43 Unspecified severe protein-calorie malnutrition; E87.2 Acidosis; J44.1 Chronic obstructive pulmonary disease with (acute) exacerbation; J44.0 Chronic obstructive pulmonary disease with (acute) lower respiratory infection; K86.1 Other chronic pancreatitis; K50.90 Crohn's disease, unspecified, without complications; J98.2 Interstitial emphysema; K21.9 Gastro-esophageal reflux disease without esophagitis; E78.5 Hyperlipidemia, unspecified; E66.9 Obesity, unspecified; Z87.891 Personal history of nicotine dependence; Z68.31 Body mass index [BMI] 31.0-31.9, adult; Z79.899 Other long term (current) drug therapy; Z79.52 Long term (current) use of systemic steroids; Z79.51 Long term (current) use of inhaled steroids; Z66 Do not resuscitate; T70.29XA Other effects of high altitude, initial encounter; W94.0XXA Exposure to prolonged high air pressure, initial encounter
CPT/HCPCS: 31500; 31720; 36415; 36569; 36600; 71045; 71260; 74018; 74177; 74250; 80048; 80053; 80202; 82550; 82728; 82803; 82962; 83605; 83615; 83880; 84145; 84478; 84484; 85025; 85379; 86140; 87040; 87070; 87077; 87086; 87186; 87205; 87426; 87449; 93005; 94002; 94003; 94640; 94760; 96374; 96375; 96376; 97162; 97165; 97802; 99251; 99282; 99285; J7030; J7040; J7050; M0243; Q9967; A4216; G0463; J0248; J1940; J2405; J3010; Q0244